=== PATIENT | female | born 1950 | race Caucasian/White ===

== ENCOUNTER 2019-05-10 15:25 | Outpatient (CLI) | payer OTHER, MEDICARE, SELFPAY ==
[2019-05-10 20:11] LABS: Anion Gap 20.6 (5-19); Blood Urea Nitrogen 21 mg/dL (8-23); Calcium 10.1 mg/Dl (8.8-10.2); Carbon Dioxide 23 mmol/L (22-29); Chloride 103 mmol/L (98-107); Glomerular Filtration Rate 44.9 mL/min (90-130); Glucose 110 mg/dL (74-106); Potassium 3.6 mmol/L (3.5-5.1); Sodium 143 mmol/L (136-145)
== END 2019-05-10 15:26 | disposition home or self-care (01) ==
LOC: LAB 15:36
PROVIDERS: Family Provider Nurse Practitioner Family; PCP Nurse Practitioner Family; Visit Provider Nurse Practitioner Family
DX: N18.9 Chronic kidney disease, unspecified (principal)
CPT/HCPCS: 36415; 80048

== ENCOUNTER 2019-05-14 08:54 | Outpatient (CLI) | payer OTHER, MEDICARE, SELFPAY ==
--- NOTE | 2019-05-14 09:48 | CT_ITS ---
WS: [id number] CT CHEST TECHNIQUE: Contrast enhanced CT of the chest with coronal and sagittal reformatted images. CLINICAL INFORMATION: LUNG NODULE COMPARISON: 4 26,018 DLP: 769.[address] scans at [facility] use at least one of these dose optimization techniques: automat ed exposure control; mA and/or kV adjustment per patient size (includes targeted exams where dose is matched to clinical indication); or iterative reconstruction. FINDINGS: Previous described right upper lobe and right middle lobe infiltrates have resolved compared to previ ous. No suspicious pulmonary parenchymal opacities today. Cardiomegaly. Sternotomy. Prior CABG. Vascu lar calcification including coronary. Small esophageal hiatal hernia. No mediastinal or hilar lymphadenopathy today. No axillary lymphadenopathy. Portal vein and splenic v ein are normal. Diffuse fatty infiltration of the liver. Adrenal glands are normal. Right renal corti karuna atrophy. Upper abdominal aortic calcification. Right proximal renal artery stent. Mild thoracic c urve. Hypertrophic changes thoracic spine. CT/CT chest w con* [id number] IMPRESSION: 1. Previously described patchy infiltrates in the right upper lobe and right m iddle lobe have resolved. No suspicious pulmonary parenchymal opacities today. 2. No mediastinal or hilar lymphadenopathy. 3. Prior sternotomy with CABG. Vascular calcification including coronary. 4. Small esophageal hiatal hernia. 5. Right renal cortical atrophy. 6. Stable cardiomegaly.
[2019-05-14] MEDS: iodixanol 320 mg/mL 100mL Btl IV (10:25)
== END 2019-05-14 08:55 | disposition home or self-care (01) ==
LOC: RAD 09:01
PROVIDERS: Family Provider Nurse Practitioner Family; PCP Nurse Practitioner Family; Visit Provider Family Medicine
DX: R91.1 Solitary pulmonary nodule (principal); I51.7 Cardiomegaly; N26.1 Atrophy of kidney (terminal); K44.9 Diaphragmatic hernia without obstruction or gangrene; Z95.1 Presence of aortocoronary bypass graft; I25.10 Atherosclerotic heart disease of native coronary artery without angina pectoris
CPT/HCPCS: 71260

== ENCOUNTER → 2019-11-06 10:37 | Outpatient (BNVA) | payer BC, MEDICARE, SELFPAY | PROVIDERS: Family Provider Nurse Practitioner Family; PCP Nurse Practitioner Family; Visit Provider Internal Medicine Nephrology | DX: N18.9 Chronic kidney disease, unspecified (principal) | CPT/HCPCS: 80053; 80069; 82570; 84156 ==

== ENCOUNTER 2019-11-13 11:01 | Outpatient (CLI) | payer BC, MEDICARE, SELFPAY ==
--- NOTE | 2019-11-13 11:12 | US_ITS ---
WS: [id number] RENAL ULTRASOUND HISTORY: CHRONIC KIDNEY DZ STAGE 3 COMPARISON: 11/04/2009 TECHNIQUE: 2-D and color Doppler imaging of the kidney submitted. Right kidney: 7.5 cm x 4.2 cm x 5.6 cm. Moderate atrophy with diffuse cortical thinning RIGHT kidney, progression of atrophy since the prior study of 11/04/2009. No obstruction or solid mass. 1 cm cyst from the superior cortex. Left kidney: 12.6 cm x 5.7 cm x 6.6 cm. Normal size LEFT kidney without cortical thinning or atrophy. No solid mass. Aorta: Normal. Urinary Bladder: Minimally distended urinary bladder with wall thickening. Wall thickening is probabl y due to underdistention. US/US renal BI* [id number] IMPRESSION: 1. Mild progression of RIGHT renal atrophy since 2009. 2. Negative LEFT kidney, normal size. 3. Mild diffuse bladder wall thickening is probably due to underdistention.
== END 2019-11-13 11:02 | disposition home or self-care (01) ==
LOC: RAD 11:07
PROVIDERS: Family Provider Nurse Practitioner Family; PCP Nurse Practitioner Family; Visit Provider Internal Medicine Nephrology
DX: N18.3 Chronic kidney disease, stage 3 (moderate) (principal)
CPT/HCPCS: 76770

== ENCOUNTER → 2019-11-21 11:33 | Outpatient (BNVA) | payer BC, MEDICARE, SELFPAY | PROVIDERS: Family Provider Nurse Practitioner Family; PCP Nurse Practitioner Family; Visit Provider Nurse Practitioner Family | DX: M25.541 Pain in joints of right hand (principal); M10.9 Gout, unspecified | CPT/HCPCS: 82550; 84460; 84550 ==

== ENCOUNTER → 2020-02-21 16:19 | Outpatient (BNVA) | payer BC, MEDICARE, SELFPAY | PROVIDERS: Family Provider Nurse Practitioner Family; PCP Nurse Practitioner Family; Visit Provider Nurse Practitioner Family | DX: R10.9 Unspecified abdominal pain (principal); I10 Essential (primary) hypertension; Z79.899 Other long term (current) drug therapy; M10.9 Gout, unspecified | CPT/HCPCS: 81000 ==

== ENCOUNTER 2020-02-22 11:28 | Outpatient (CLI) | payer BC, MEDICARE, SELFPAY ==
[2020-02-22 12:12] LABS: Basophils # 0.1 10^3/uL (0.0-0.1); Basophils % 0.6 %; Eosinophils # 0.1 10^3/uL (0.0-0.8); Hematocrit 33.6 % (37.0-47.0); Hemoglobin 9.6 g/dL (11.5-15.3); Lymphocytes % 12.3 %; Mean Corpuscular HGB Conc 28.6 g/dL (30.0-36.0); Mean Corpuscular Hemoglobin 24.7 pg (28.0-34.0); Mean Corpuscular Volume 86.4 fL (81-99); Mean Platelet Volume 9.5 fL (7.4-10.4); Monocytes # 0.6 10^3/uL (0.2-0.9); Monocytes % 7.8 %; Neutrophils % 77.9 %; Nucleated Red Blood Cells % 0 %; Platelet Count 286 10^3/cmm (130-400); Red Blood Count 3.89 10^6/uL (4.1-5.3); Red Cell Distribution Width 17.5 % (12.1-15.1); White Blood Count 8.2 10^3/uL (4.0-10.0)
[2020-02-22 12:44] LABS: Blood Urea Nitrogen 14 mg/dL (8-23); Glomerular Filtration Rate 62.5 mL/min (90-130); Uric Acid 9.9 mg/dL (2.4-5.7)
[2020-02-22] MEDS: iohexol 300 mg/mL 50 mL Btl PO (12:45)
--- NOTE | 2020-02-22 14:00 | CT_ITS ---
WS: [id number] CT scan of the abdomen and pelvis with Oral and IV contrast. Additional two-dimensional coronal and s agittal reconstruction was performed. 02/22/2020 Clinical Data: abd pain Comparison: CT abdomen and pelvis, 06/03/2014. DLP: 1136.[address] scans at [facility] use at least one of these dose optimization techniques: automat ed exposure control; mA and/or kV adjustment per patient size (includes targeted exams where dose is matched to clinical indication); or iterative reconstruction. Findings: The lower lungs show no nodules, masses or effusions. Pacemaker wires are in the apex of the heart. The liver, gallbladder, spleen, adrenal glands and pancreas are normal. The right kidney is atrophic with small cortical cysts. There is hypertrophy of left kidney with intr arenal and cortical cysts. No masses, hydronephrosis or renal calculi are seen. The abdominal aorta is normal in size with calcification in the wall, and the calcification extends i nto the common iliac arteries and arteries distal to them.. No appendicitis or diverticulitis is seen. There are sigmoid diverticula. Oral contrast is in the sto mach, small bowel and colon, and there is no bowel dilatation. No abscess, adenopathy, ascites, mass, obstruction or free air is seen. There is a small fat-containing umbilical hernia. The bladder is un remarkable. The uterus is absent or fat-containing inguinal hernias.. The lumbar vertebral bodies show degenerative change with multilevel degenerative disc disease. CT/CT abdomen pelvis w con* [id number] Impression: 1. Right renal atrophy. 2. Extensive atherosclerotic calcification of the abdominal aorta and its dista l branches. 3. Hysterectomy. 4. Negative for acute intra-abdominal or pelvic abnormalities.
[2020-02-22] MEDS: iohexol 300 mg/mL 100 mL Btl IV (14:19)
== END 2020-02-22 11:29 | disposition home or self-care (01) ==
LOC: RADWPI 11:35
PROVIDERS: PCP Nurse Practitioner Family; Visit Provider Nurse Practitioner Family
DX: R10.9 Unspecified abdominal pain (principal); Z79.899 Other long term (current) drug therapy; M10.9 Gout, unspecified; N26.1 Atrophy of kidney (terminal); I70.0 Atherosclerosis of aorta; Z90.710 Acquired absence of both cervix and uterus
CPT/HCPCS: 36415; 74177; 82565; 84520; 84550; 85025; Q9967

== ENCOUNTER 2020-02-26 13:43 | Outpatient (CLI) | payer BC, MEDICARE, SELFPAY ==
[2020-02-26 14:51] LABS: Ferritin 37 ng/mL (15-150); Iron 33 ug/dL (37-145); Total Iron Binding Capacity 412 mcg/dl; Unsaturated Iron Binding 379 ug/dL (112-347)
[2020-02-26 15:07] LABS: Vitamin B12 1429 pg/mL (232-1245)
== END 2020-02-26 13:44 | disposition home or self-care (01) ==
LOC: LAB 13:48
PROVIDERS: PCP Nurse Practitioner Family; Visit Provider Nurse Practitioner Family
DX: D64.9 Anemia, unspecified (principal)
CPT/HCPCS: 82607; 82728; 83540; 83550

== ENCOUNTER 2020-03-18 08:46 | Outpatient (CLI) | payer BC, MEDICARE, SELFPAY ==
--- NOTE | 2020-03-18 08:45 | USCV_ITS ---
Essie Alejandre Age: 69 Gender: F : 1950 Exam Date: 03/18/2020 09:02 Ordering Phys: Maya Marin Technologist: Garry Coles [place] [facility] [place]: htn Aortic Velocity @ SMA (cm/s) RIGHT KIDNEY LEFT KIDNEY Velocity (cm/s) Velocity (cm/s) Sys/Mckay Sys/Mckay Resistive Index Resistive Index 47.1 / 15.7 0.67 Proximal Renal Artery 50.5 / 11.2 0.78 54.5 / 15.7 0.71 Mid Renal Artery 63.3 / 16.3 0.74 66.1 / 15.7 0.76 Distal Renal Artery 57.8 / 11.2 0.81 49.9 / 18.4 0.63 Hilar 57.1 / 21.3 0.63 29.2 / 13.8 0.52 Upper Pole 21.4 / 9.2 0.57 13.8 / 0.0 1.00 Mid Pole 20.4 / 8.7 0.57 11.2 / 0.3 0.97 Lower Pole 22.6 / 11.1 0.51 0.66 Renal Aortic Ratio 0.57 Accleration Index (cm/sec2) 522.00 Hilar 502.00 955.00 Upper Pole 639.00 284.00 Mid Pole 430.00 594.00 Lower Pole 426.00 77.2 Kidney Length (mm) 114.7 CONCLUSIONS Normal color flow Doppler, peak systolic velocities, Renal/Aortic peak systolic velocity ratio and resistive indices noted in bilateral main, segmental and interlobar renal arteries. Bandar Mack MD (Electronically Signed) Final Date: 18 March 2020 11:48 S
== END 2020-03-18 08:47 | disposition home or self-care (01) ==
LOC: US 08:48
PROVIDERS: PCP Nurse Practitioner Family; Visit Provider Nurse Practitioner Family
DX: I10 Essential (primary) hypertension (principal)
CPT/HCPCS: 93975

== ENCOUNTER 2020-04-14 11:41 | Outpatient (CLI) | payer BC, MEDICARE, SELFPAY ==
[2020-04-14 13:18] LABS: Basophils # 0.1 10^3/uL (0.0-0.1); Basophils % 0.9 %; Eosinophils # 0.2 10^3/uL (0.0-0.8); Eosinophils % 2.3 %; Hemoglobin 12.1 g/dL (11.5-15.3); Lymphocytes # 1.7 10^3/uL (0.8-4.8); Lymphocytes % 21.6 %; Mean Corpuscular HGB Conc 30.3 g/dL (30.0-36.0); Mean Corpuscular Volume 89.3 fL (81-99); Mean Platelet Volume 9.7 fL (7.4-10.4); Monocytes # 0.5 10^3/uL (0.2-0.9); Monocytes % 6.3 %; Neutrophils # 5.43 10^3/uL (1.8-7.7); Neutrophils % 68.5 %; Nucleated Red Blood Cells % 0 %; Platelet Count 311 10^3/cmm (130-400); Red Blood Count 4.48 10^6/uL (4.1-5.3); Red Cell Distribution Width 18.1 % (12.1-15.1); White Blood Count 7.9 10^3/uL (4.0-10.0)
[2020-04-14 13:46] LABS: Albumin Level 4.3 g/dL (3.5-5.2); Blood Urea Nitrogen 23 mg/dL (8-23); Calcium 10.2 mg/dL (8.5-10.5); Carbon Dioxide 27 mmol/L (22-29); Chloride 100 mmol/L (98-107); Glomerular Filtration Rate 55.3 mL/min (90-130); Glucose 98 mg/dL (65-115); Phosphorus 3.4 mg/dL (2.5-4.5); Sodium 139 mmol/L (136-145)
[2020-04-14 17:17] LABS: Creatinine Urine, Random 52 mg/dL (28-217); Microalbumin Random Urine 4 ug/dL (0-20)
[2020-04-14 17:18] LABS: Microalbum Creatinine Ratio Ur 77 mg/dL (0-20)
[2020-04-14 18:39] LABS: Parathyroid Hormone 62.1 pg/mL (15-65)
== END 2020-04-14 11:42 | disposition home or self-care (01) ==
PROVIDERS: PCP Nurse Practitioner Family; Visit Provider Internal Medicine Nephrology
DX: N18.30 Chronic kidney disease, stage 3 unspecified (principal)
CPT/HCPCS: 36415; 80069; 82044; 82310; 83970; 85025

== ENCOUNTER 2020-06-20 14:28 | Outpatient (CLI) | payer BC, MEDICARE, SELFPAY ==
[2020-06-20 16:07] LABS: Alanine Aminotransferase 14 U/L (0-33); Alkaline Phosphatase 147 IU/L (35-105); Anion Gap 16.4 (5-19); Aspartate Amino Transferase 26 U/L (0-32); Blood Urea Nitrogen 23 mg/dL (8-23); Calcium 9.2 mg/dL (8.5-10.5); Carbon Dioxide 27 mmol/L (22-29); Chloride 100 mmol/L (98-107); Chol HDL Ratio 4.15 mg/dL (0.0-4.40); Cholesterol 257 mg/dL (0-200); Globulin 3.7 g/dL (1.3-4.6); Glomerular Filtration Rate 55.3 mL/min (90-130); Glucose 119 mg/dL (65-115); HDL Cholesterol 62 mg/dL (60-100); LDL Cholesterol Calculated 166 mg/dL (50-129); LDL HDL Ratio 2.68 RATIO (0.00-3.22); Osmolality Calculated 295 mOsm/kg (285-295); Potassium 3.4 mmol/L (3.5-5.1); Sodium 140 mmol/L (136-145); Total Bilirubin 0.3 mg/dL (0.15-1.2); Total Protein 7.7 g/dL (6.6-8.7); Triglycerides 146 mg/dL (0-150)
[2020-06-20 16:25] LABS: Hematocrit 41.2 % (37.0-47.0); Hemoglobin 13.2 g/dL (11.5-15.3); Mean Corpuscular Hemoglobin 30.1 pg (28.0-34.0); Mean Corpuscular Volume 93.8 fL (81-99); Mean Platelet Volume 9.8 fL (7.4-10.4); Platelet Count 298 10^3/cmm (130-400); Red Blood Count 4.39 10^6/uL (4.1-5.3); White Blood Count 8.6 10^3/uL (4.0-10.0)
[2020-06-20 17:54] LABS: Absolute Segmented Neutrophil 5.6 10/cmm (1.6-7.1); Lymphocytes 26 %; Monocytes Absolute 0.8 10^3/cmm (0.1-0.6); Segmented Neutrophils 65 %; Total Cells Counted 100 (0-100)
[2020-06-20 17:55] LABS: Absolute Neutrophil 5.6 10^3/cmm (1.4-6.5); Eosinophils 0 %; Platelet Estimate Normal (Normal)
[2020-06-20 20:30] LABS: Iron 89 ug/dL (37-145)
== END 2020-06-20 14:29 | disposition home or self-care (01) ==
PROVIDERS: PCP Nurse Practitioner Family; Visit Provider Nurse Practitioner Family
DX: Z51.81 Encounter for therapeutic drug level monitoring (principal); E78.5 Hyperlipidemia, unspecified; E61.1 Iron deficiency
CPT/HCPCS: 36415; 80053; 80061; 83540; 85007; 85027

== ENCOUNTER 2020-07-09 10:37 | Outpatient (CLI) | payer BC, MEDICARE, SELFPAY ==
[2020-07-09 11:54] LABS: C Reactive Protein 13.6 mg/L (0.0-4.9); Uric Acid 11.2 mg/dL (2.4-5.7)
[2020-07-10 15:13] LABS: Anti-Nuclear Antibody Screen NEGATIVE (NEGATIVE)
== END 2020-07-09 10:38 | disposition home or self-care (01) ==
PROVIDERS: PCP Nurse Practitioner Family; Visit Provider Nurse Practitioner Family
DX: M25.50 Pain in unspecified joint (principal); M10.9 Gout, unspecified
CPT/HCPCS: 36415; 84550; 86038; 86140; 86431

== ENCOUNTER 2020-07-15 10:43 | Outpatient (CLI) | payer BC, MEDICARE, SELFPAY ==
[2020-07-15 11:37] LABS: C Reactive Protein 18.8 mg/L (0.0-4.9); Uric Acid 11.3 mg/dL (2.4-5.7)
== END 2020-07-15 10:44 | disposition home or self-care (01) ==
PROVIDERS: PCP Nurse Practitioner Family; Visit Provider Nurse Practitioner Family
DX: M10.9 Gout, unspecified (principal); R79.82 Elevated C-reactive protein (CRP)
CPT/HCPCS: 84550; 86140

== ENCOUNTER → 2020-07-24 11:26 | Outpatient (BNVA) | payer BC, MEDICARE, SELFPAY | PROVIDERS: PCP Nurse Practitioner Family; Visit Provider Nurse Practitioner Family | DX: M10.9 Gout, unspecified (principal); M25.50 Pain in unspecified joint | CPT/HCPCS: 84550; 86140 ==

== ENCOUNTER → 2020-08-13 13:59 | Outpatient (BNVA) | payer BC, MEDICARE, SELFPAY | PROVIDERS: PCP Nurse Practitioner Family; Visit Provider Internal Medicine Rheumatology | DX: M1A.9XX1 Chronic gout, unspecified, with tophus (tophi) (principal); Z79.899 Other long term (current) drug therapy; N18.30 Chronic kidney disease, stage 3 unspecified | CPT/HCPCS: 99204 ==

== ENCOUNTER 2020-09-17 15:10 | Outpatient (CLI) | payer BC, MEDICARE, SELFPAY ==
--- NOTE | 2020-09-17 15:17 | XR_ITS ---
WS: [id number] Right foot, 3 views, 09/17/2020 Clinical Data: M10.9 - Gout, unspecified Comparison: Right foot, 09/04/2017. Findings: No fractures or dislocations are seen. There is minimal calcification adjacent to the head of the rig ht first metatarsal. There is cystic change at the distal right first metatarsal. There are cystic ch anges at the bases of the second through fifth metatarsals and also at the base of the right second p roximal phalanx.There is a plantar spur and an Achilles spur. XR/XR foot RT min 3V* [id number] Impression: 1. Erosive changes of the head of the right first metatarsal, base of the righ t second proximal phalanx and bases of the second through fifth metatarsals. 2. Faint calcification at head of right first metatarsal consistent with gout.
--- NOTE | 2020-09-17 15:17 | XR_ITS ---
WS: [id number] Left foot, 3 views, 09/17/2020 Clinical Data: M10.9 - Gout, unspecified Comparison: Left foot, 09/20/2016. Findings: No fractures or dislocations are seen. There is a small bunion at the head of the left first metatars al There are soft tissue calcifications adjacent to the head of the left first metatarsal which have increased. There is cystic change at the bases of the second through fifth metatarsals. There is an e rosion of the medial aspect of the distal left first metatarsal.There is a plantar spur and Achilles spur. There are soft tissue clips in the medial distal leg. XR/XR foot LT min 3V* [id number] Impression: 1. Soft tissue calcifications adjacent to the head of the left first metatarsal consistent with gout. 2. Cystic change at the bases of second through fifth metatarsals.
--- NOTE | 2020-09-17 15:17 | XR_ITS ---
WS: [id number] Cervical spine, 3 views, 09/17/2020 Clinical Data: M10.9 - Gout, unspecified Comparison: Cervical spine, 08/20/2016. Findings: No compression fractures are seen. There is disc space narrowing at C5-C6 and C6-C7. Minima l anterior osteophytes are seen at C5-C6 and C6-C7. There is loss of the normal lordotic curvature. T here is no prevertebral soft tissue swelling. The odontoid is unremarkable. The soft tissues of the n mari and the lung apices are normal. Midline sternotomy sutures and pacemaker wires are noted. XR/XR cervical spine 3V* [id number] Impression: 1. Minimal narrowing of the C5-C6 and C6-C7 disc interspaces. 2. Mild osteoarthritis at C5-C6 and C6-C7 unchanged.
--- NOTE | 2020-09-17 15:17 | XR_ITS ---
WS: [id number] Right hand, 3 views, 09/17/2020 Clinical Data: M10.9 - Gout, unspecified Comparison: None. Findings: No fractures or dislocations are seen. There is an erosion of the radial side of the dist al aspect of the right third proximal phalanx along with soft tissue swelling about the right third P IP joint.There is calcification in the triradiate cartilage. XR/XR hand RT min 3V* [id number] Impression: Soft tissue swelling around right third PIP joint along with small erosion on t he radial distal third proximal phalanx.
--- NOTE | 2020-09-17 15:17 | XR_ITS ---
WS: [id number] Left hand, 3 views, 09/17/2020 Clinical Data: M10.9 - Gout, unspecified Comparison: None. Findings: No fractures or dislocations are seen. The soft tissues are unremarkable. There are cystic changes at the base of the left first metacarpal and the proximal row of carpal bones.There is a soft tissue ca lcification on the radial side of the distal left third proximal phalanx. XR/XR hand LT min 3V* [id number] Impression: 1. Cystic change in the proximal row of carpal bones and base of the left first metacarpal. 2. Faint soft tissue calcification on the radial side of the distal left third proximal phalanx.
[2020-09-17 16:49] LABS: Basophils % 0.4 %; Eosinophils % 0.1 %; Hemoglobin 12.3 g/dL (11.5-15.3); Lymphocytes # 1.1 10^3/uL (0.8-4.8); Lymphocytes % 11.4 %; Mean Corpuscular HGB Conc 32.4 g/dL (30.0-36.0); Mean Corpuscular Hemoglobin 32.1 pg (28.0-34.0); Mean Corpuscular Volume 99.2 fL (81-99); Mean Platelet Volume 9.3 fL (7.4-10.4); Monocytes # 0.6 10^3/uL (0.2-0.9); Monocytes % 6.2 %; Neutrophils % 81.4 %; Nucleated Red Blood Cells % 0 %; Platelet Count 221 10^3/cmm (130-400); Red Blood Count 3.83 10^6/uL (4.1-5.3); Red Cell Distribution Width 14.7 % (12.1-15.1); White Blood Count 9.7 10^3/uL (4.0-10.0)
[2020-09-17 17:27] LABS: Alanine Aminotransferase 19 U/L (0-33); Albumin Level 4.1 g/dL (3.5-5.2); Alkaline Phosphatase 121 IU/L (35-105); Aspartate Amino Transferase 35 U/L (0-32); C Reactive Protein 23.2 mg/L (0.0-4.9); Globulin 3.6 g/dL (1.3-4.6); Glomerular Filtration Rate 55.1 mL/min (90-130); Total Bilirubin 0.4 mg/dL (0.15-1.2); Total Protein 7.7 g/dL (6.6-8.7); Uric Acid 6.8 mg/dL (2.4-5.7)
[2020-09-19 13:27] LABS: Cyclic Citrullinated Peptide <16 UNITS
== END 2020-09-17 15:11 | disposition home or self-care (01) ==
PROVIDERS: PCP Nurse Practitioner Family; Visit Provider Internal Medicine Rheumatology
DX: M1A.3790 Chronic gout due to renal impairment, unspecified ankle and foot, without tophus (tophi) (principal); M19.90 Unspecified osteoarthritis, unspecified site; Z79.899 Other long term (current) drug therapy
CPT/HCPCS: 36415; 72040; 73130; 73630; 80076; 82565; 84132; 84550; 85025; 86140

== ENCOUNTER → 2020-09-25 14:55 | Outpatient (BNVA) | payer BC, MEDICARE, SELFPAY | PROVIDERS: PCP Nurse Practitioner Family; Visit Provider Internal Medicine Rheumatology | DX: M1A.9XX1 Chronic gout, unspecified, with tophus (tophi) (principal); Z79.899 Other long term (current) drug therapy; N18.30 Chronic kidney disease, stage 3 unspecified | CPT/HCPCS: 99214 ==

== ENCOUNTER 2020-10-02 11:15 | Outpatient (CLI) | payer BC, MEDICARE, SELFPAY ==
[2020-10-02 11:47] LABS: Basophils # 0.1 10^3/uL (0.0-0.1); Basophils % 0.9 %; Eosinophils # 0.1 10^3/uL (0.0-0.8); Eosinophils % 1.5 %; Hematocrit 42.9 % (37.0-47.0); Lymphocytes # 1.4 10^3/uL (0.8-4.8); Lymphocytes % 15.1 %; Mean Corpuscular HGB Conc 32.6 g/dL (30.0-36.0); Mean Corpuscular Hemoglobin 32.6 pg (28.0-34.0); Mean Corpuscular Volume 99.8 fL (81-99); Mean Platelet Volume 9.5 fL (7.4-10.4); Monocytes # 0.6 10^3/uL (0.2-0.9); Monocytes % 6.3 %; Neutrophils # 6.99 10^3/uL (1.8-7.7); Neutrophils % 75.7 %; Nucleated Red Blood Cells % 0 %; Platelet Count 280 10^3/cmm (130-400); Red Cell Distribution Width 14.4 % (12.1-15.1); White Blood Count 9.2 10^3/uL (4.0-10.0)
[2020-10-02 12:04] LABS: Alanine Aminotransferase 13 U/L (0-33); Albumin Level 4.2 g/dL (3.5-5.2); Alkaline Phosphatase 119 IU/L (35-105); Aspartate Amino Transferase 22 U/L (0-32); C Reactive Protein 2.8 mg/L (0.0-4.9); Globulin 3.3 g/dL (1.3-4.6); Glomerular Filtration Rate 37.4 mL/min (90-130); Total Bilirubin 0.5 mg/dL (0.15-1.2); Total Protein 7.5 g/dL (6.6-8.7); Uric Acid 7.5 mg/dL (2.4-5.7)
== END 2020-10-02 11:16 | disposition home or self-care (01) ==
PROVIDERS: PCP Nurse Practitioner Family; Visit Provider Internal Medicine Rheumatology
DX: M1A.3790 Chronic gout due to renal impairment, unspecified ankle and foot, without tophus (tophi) (principal); Z79.899 Other long term (current) drug therapy
CPT/HCPCS: 36415; 80076; 82565; 84550; 85025; 86140

== ENCOUNTER → 2020-12-24 13:39 | Outpatient (BNVA) | payer BC, MEDICARE, SELFPAY | PROVIDERS: PCP Nurse Practitioner Family; Visit Provider Nurse Practitioner Family | DX: R39.9 Unspecified symptoms and signs involving the genitourinary system (principal); N39.0 Urinary tract infection, site not specified; K21.9 Gastro-esophageal reflux disease without esophagitis; I65.09 Occlusion and stenosis of unspecified vertebral artery; M54.5 Low back pain; K46.9 Unspecified abdominal hernia without obstruction or gangrene; K44.9 Diaphragmatic hernia without obstruction or gangrene | CPT/HCPCS: 81000; 87077; 87086; 87184 ==

== ENCOUNTER → 2020-12-31 09:32 | Outpatient (BNVA) | payer BC, MEDICARE, SELFPAY | PROVIDERS: PCP Nurse Practitioner Family; Referring Provider Nurse Practitioner Family; Visit Provider Nurse Practitioner | DX: I65.09 Occlusion and stenosis of unspecified vertebral artery (principal); Z86.73 Personal history of transient ischemic attack (TIA), and cerebral infarction without residual deficits; N18.30 Chronic kidney disease, stage 3 unspecified | CPT/HCPCS: 99204; 99214 ==

== ENCOUNTER → 2021-01-20 10:14 | Outpatient (BNVA) | payer BC, MEDICARE, SELFPAY | PROVIDERS: PCP Nurse Practitioner Family; Visit Provider Internal Medicine Rheumatology | DX: N18.30 Chronic kidney disease, stage 3 unspecified (principal); M1A.30X1 Chronic gout due to renal impairment, unspecified site, with tophus (tophi); Z79.899 Other long term (current) drug therapy; Z79.01 Long term (current) use of anticoagulants; Z87.891 Personal history of nicotine dependence | CPT/HCPCS: 99214 ==

== ENCOUNTER 2021-01-20 11:36 | Outpatient (CLI) | payer BC, MEDICARE, SELFPAY ==
[2021-01-20 12:08] LABS: Basophils # 0.1 10^3/uL (0.0-0.1); Basophils % 0.6 %; Eosinophils # 0.1 10^3/uL (0.0-0.8); Eosinophils % 1.4 %; Hematocrit 41.3 % (37.0-47.0); Hemoglobin 13.5 g/dL (11.5-15.3); Lymphocytes % 12.1 %; Mean Corpuscular HGB Conc 32.7 g/dL (30.0-36.0); Mean Corpuscular Hemoglobin 33.8 pg (28.0-34.0); Mean Corpuscular Volume 103.3 fl (81-99); Mean Platelet Volume 9.4 fL (7.4-10.4); Monocytes # 0.4 10^3/uL (0.2-0.9); Monocytes % 5.4 %; Neutrophils # 6.27 10^3/uL (1.8-7.7); Neutrophils % 80.1 %; Nucleated Red Blood Cells % 0 %; Platelet Count 221 10^3/cmm (130-400); White Blood Count 7.8 10^3/uL (4.0-10.0)
[2021-01-20 12:42] LABS: Alanine Aminotransferase 14 U/L (0-33); Albumin Level 4.2 g/dL (3.5-5.2); Alkaline Phosphatase 107 IU/L (35-105); Aspartate Amino Transferase 25 U/L (0-32); C Reactive Protein 20.8 mg/L (0.0-4.9); Globulin 3.4 g/dL (1.3-4.6); Glomerular Filtration Rate 44.7 mL/min (90-130); Total Bilirubin 0.7 mg/dL (0.15-1.2); Total Protein 7.6 g/dL (6.6-8.7); Uric Acid 5.2 mg/dL (2.4-5.7)
== END 2021-01-20 11:37 | disposition home or self-care (01) ==
LOC: LAB 11:45
PROVIDERS: PCP Nurse Practitioner Family; Visit Provider Internal Medicine Rheumatology
DX: M1A.3790 Chronic gout due to renal impairment, unspecified ankle and foot, without tophus (tophi) (principal); M1A.9XX1 Chronic gout, unspecified, with tophus (tophi); Z79.899 Other long term (current) drug therapy
CPT/HCPCS: 80076; 82565; 84550; 85025; 86140

== ENCOUNTER → 2021-01-26 16:25 | Outpatient (BNVA) | payer BC, MEDICARE, SELFPAY | PROVIDERS: PCP Nurse Practitioner Family; Visit Provider Internal Medicine | DX: K21.9 Gastro-esophageal reflux disease without esophagitis (principal); Z01.812 Encounter for preprocedural laboratory examination | CPT/HCPCS: 87635 ==

== ENCOUNTER 2021-01-30 08:40 | Day surgery (SDC) | payer BC, MEDICARE, SELFPAY ==
[2021-01-26 12:58] VITALS: BMI 32.5
--- NOTE | 2021-01-30 09:14 | P.HP_ITS ---
Same Day Surgery H&P Indication for Procedure/HPI DATE OF PROCEDURE: January 30, 2021 CHIEF COMPLAINT/INDICATIONFOR SURGICAL PROCEDURE: Intractable reflux PREOP DIAGNOSIS: Intractable refill PLANNED PROCEDRUE: Operation Date: 01/30/21 10:00 Proposed Procedures p EGD 15436 K21.9(Not Applicable) - Norberto Wolff MD Medications/Allergies* Home Medications Medication Instructions Recorded Confirmed Type omega-3 fatty acids 1,000 mg 1,000 mg PO DAILY 06/29/19 01/26/21 History capsule acetaminophen 650 mg 650 mg PO Q12H 08/13/20 01/26/21 History tablet,extended release antiarthritic combination no.2 900 1 mg PO DAILY tab 08/13/20 01/26/21 History mg tablet calcium carbonate 600 mg (1,500 1 tab PO DAILY 08/13/20 01/26/21 History mg)-vitamin D3 200 unit tablet cholecalciferol (vitamin D3) 125 125 mcg PO DAILY 08/13/20 01/26/21 History mcg (5,000 unit) capsule Allergies/Adverse Reactions Allergy/AdvReac Type Severity Reaction Status Date / Time Sulfa (Sulfonamide Allergy hives Verified 01/20/21 10:48 Antibiotics) Pertinent History/Comorbid Conditions* Medical History (Updated 01/15/21 @ 11:07 by Norberto Wolff MD) Anemia Anticoagulant long-term use Atrial fibrillation Cardiomyopathy CHF (congestive heart failure) Chronic renal insufficiency, stage II (mild) Chronic tophaceous gout of both hands CKD (chronic kidney disease) stage 3, GFR 30-59 ml/min GERD (gastroesophageal reflux disease) Gout High risk medication use High risk medication use HTN (hypertension) Hyperlipidemia Left bundle branch block MRSA carrier BASIA (obstructive sleep apnea) PAD (peripheral artery disease) Renal artery stenosis Right internal carotid artery aneurysm Sleep apnea Vertebral artery stenosis Vertebrobasilar insufficiency Surgical History (Updated 08/13/20 @ 15:16 by Jayro Alejandra MD) H/O cardiac radiofrequency ablation S/P angioplasty with stent S/P appendectomy S/P CABG (coronary artery bypass graft) S/P section S/P hysterectomy S/P ICD (internal cardiac 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) procedure Status post aorto-coronary artery bypass graft Status post tubal ligation Family History (Updated 06/28/19 @ 10:31 by Tori Prado RN) Rheumatoid arthritis Father Diabetes Mother Sister CAD (coronary artery disease) Father Mother Sister Hyperlipidemia Father Mother Sister Cancer Hypertension Father Mother Sister Social History Smoking and tobacco status: former smoker Second hand smoke exposure: No Current occupational status: unemployed History of recent travel: No Pertinent Exam Findings alert, oriented x 3, clear to auscultation bilaterally, regular rate & rhythm, operative site marked and procedure specific exam findings Recommendations Surgery/Procedure today Coding Level of Care Code Acute Packager And Strapper for Dario Guzman
--- NOTE | 2021-01-30 09:18 | ANES.PREANE2 ---
Pre-Anesthetic Assessment Pre-Anesthetic Assessment: Height/Weight: Height 1.63 m Weight 86.183 kg Preop Diagnosis: GERD Proposed Procedure: Operation Date: 01/30/21 10:00 Proposed Procedures p EGD 79943 K21.9(Not Applicable) - Norberto Wolff MD Was Beta Misa taken within 24 hours: Yes Was Clonidine taken within 24 hours: N/A Social: Social History: Tobacco and No alcohol Exam: Pre-Anes Outpt Exam: alert, oriented x 3 and regular rate & rhythm Airway: Submandibular: WNL Cervical ROM: WNL MP: 2 Dentition: Chipped Additional comments: Missing Pulmonary: Pulmonary: COPD and Sleep apnea CV/HEM: CV/HEM: Afib, Anemia, CAD (CABG and stents) and HTN Comments: AICD : : Chronic renal Insufficiency GI: GI: GERD Neuropsych: Neuropsych: Depression Anesthetic Plan: ASA status: 3 Anesthesia: MAC Risk of > 500 ml blood loss (7ml/kg in children): No PFSH Anesthesia PFSH: Medical History Anemia Anticoagulant long-term use Atrial fibrillation Cardiomyopathy CHF (congestive heart failure) Chronic renal insufficiency, stage II (mild) Chronic tophaceous gout of both hands CKD (chronic kidney disease) stage 3, GFR 30-59 ml/min GERD (gastroesophageal reflux disease) Gout High risk medication use High risk medication use HTN (hypertension) Hyperlipidemia Left bundle branch block MRSA carrier BASIA (obstructive sleep apnea) PAD (peripheral artery disease) Renal artery stenosis Right internal carotid artery aneurysm Sleep apnea Vertebral artery stenosis Vertebrobasilar insufficiency Surgical History H/O cardiac radiofrequency ablation S/P angioplasty with stent S/P appendectomy S/P CABG (coronary artery bypass graft) S/P section S/P hysterectomy S/P ICD (internal cardiac 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) procedure Status post aorto-coronary artery bypass graft Status post tubal ligation Family History Father Hyperlipidemia CAD (coronary artery disease) Hypertension Rheumatoid arthritis Mother Hyperlipidemia CAD (coronary artery disease) Hypertension Diabetes Sister Hyperlipidemia CAD (coronary artery disease) Hypertension Diabetes Other Cancer Social History Smoking and tobacco status: former smoker Second hand smoke exposure: No Current occupational status: unemployed History of recent travel: No Data Anesthesia Cardiac Studies: No Data to Display
[2021-01-30 09:39] VITALS: BP 125/76; PULSE 75; RESP 16; TEMP 36.2; O2SAT 96
[2021-01-30] MEDS: sodium chloride 0.9% 1,000 ML 30 ML IV (10:07)
[2021-01-30 10:25] VITALS: BP 115/71; PULSE 72; RESP 16; TEMP 36.1; O2SAT 100
--- NOTE | 2021-01-30 10:28 | PM.PACU ---
PACU note Post-Anesthesia Exam: awake and vital signs stable Disposition: discharged
[2021-01-30 10:35] VITALS: BP 130/86; PULSE 72; RESP 18; O2SAT 98
== END 2021-01-30 10:49 | disposition home or self-care (01) ==
PROVIDERS: PCP Nurse Practitioner Family; Visit Provider Internal Medicine
PROC: 0DJ08ZZ Inspection of Upper Intestinal Tract, Via Natural or Artificial Opening Endoscopic (ICD-10-PCS; CPT 43235; principal; 2021-01-30 10:00)
DX: K21.9 Gastro-esophageal reflux disease without esophagitis (principal); K44.9 Diaphragmatic hernia without obstruction or gangrene; Z79.01 Long term (current) use of anticoagulants; I48.91 Unspecified atrial fibrillation; E11.22 Type 2 diabetes mellitus with diabetic chronic kidney disease; I13.0 Hypertensive heart and chronic kidney disease with heart failure and stage 1 through stage 4 chronic kidney disease, or unspecified chronic kidney disease; N18.2 Chronic kidney disease, stage 2 (mild); I50.9 Heart failure, unspecified; E78.5 Hyperlipidemia, unspecified; Z86.14 Personal history of Methicillin resistant Staphylococcus aureus infection; G47.33 Obstructive sleep apnea (adult) (pediatric); Z95.1 Presence of aortocoronary bypass graft; Z82.49 Family history of ischemic heart disease and other diseases of the circulatory system; Z83.3 Family history of diabetes mellitus; Z87.891 Personal history of nicotine dependence; Z95.5 Presence of coronary angioplasty implant and graft
CPT/HCPCS: 43235; 96360; J2704; J7030

== ENCOUNTER 2021-02-12 11:51 | Outpatient (CLI) | payer BC, MEDICARE, SELFPAY ==
--- NOTE | 2021-02-12 12:02 | XR_ITS ---
WS: [id number] XR lumbar spine 2-3V* [id number] REASON FOR EXAM: M54.50 - Low back pain, unspecified FINDINGS: Rotatory scoliosis of the lumbar spine convex left. No significant compression deformity or other focal lumbar vertebrae abnormality. Moderate narrowing of the intervertebral disc space at L1-L2. Severe narrowing of the intervertebral disc spaces at L2-L3. Moderate narrowing of the intervertebral disc spaces L3-S1. Degenerative changes in the facet joints L4-L5 and L5-S1. The L2 vertebral body demonstrates 4 to 5 mm of anterolisthesis in relation to L1 and 4 to 5 mm of re trolisthesis in relation to L3. Vascular stents, presumably iliac and superior mesenteric artery. Examination is unchanged compared to 04/18/2019. XR/XR lumbar spine 2-3V* [id number] IMPRESSION: Multilevel lumbar degenerative spondylosis, unchanged.
== END 2021-02-12 11:52 | disposition home or self-care (01) ==
LOC: RAD 11:59
PROVIDERS: PCP Nurse Practitioner Family; Visit Provider Nurse Practitioner Family
DX: M54.50 Low back pain, unspecified (principal); M47.816 Spondylosis without myelopathy or radiculopathy, lumbar region
CPT/HCPCS: 72100

== ENCOUNTER → 2021-03-27 08:26 | Outpatient (BNVA) | payer BC, MEDICARE, SELFPAY | PROVIDERS: PCP Nurse Practitioner Family; Visit Provider Nurse Practitioner Family | DX: R10.9 Unspecified abdominal pain (principal) | CPT/HCPCS: 81000 ==

== ENCOUNTER 2021-04-13 10:03 | Emergency (ER) | payer BC, MEDICARE, SELFPAY ==
[2021-04-13] VITALS (7 sets, daily range): BP systolic 90–136; BP diastolic 55–78; PULSE 71–92; RESP 18; TEMP 36.7–37.6; O2SAT 94–96; BMI 33.5
[2021-04-13 11:23] LABS: Basophils % 0.3 %; Eosinophils # 0.2 10^3/uL (0.0-0.8); Eosinophils % 1.1 %; Hematocrit 38.7 % (37.0-47.0); Hemoglobin 12.8 g/dL (11.5-15.3); Lymphocytes # 0.4 10^3/uL (0.8-4.8); Lymphocytes % 3.1 %; Mean Corpuscular HGB Conc 33.1 g/dL (30.0-36.0); Mean Corpuscular Hemoglobin 33.3 pg (28.0-34.0); Mean Corpuscular Volume 100.8 fl (81-99); Mean Platelet Volume 9.9 fL (7.4-10.4); Monocytes # 0.8 10^3/uL (0.2-0.9); Monocytes % 5.4 %; Neutrophils # 12.34 10^3/uL (1.8-7.7); Neutrophils % 89.6 %; Nucleated Red Blood Cells % 0 %; Platelet Count 211 10^3/cmm (130-400); Red Blood Count 3.84 10^6/uL (4.1-5.3); Red Cell Distribution Width 14.6 % (12.1-15.1); White Blood Count 13.8 10^3/uL (4.0-10.0)
[2021-04-13 11:53] LABS: Alanine Aminotransferase 16 U/L (0-33); Albumin Level 3.9 g/dL (3.5-5.2); Alkaline Phosphatase 113 IU/L (35-105); Anion Gap 22.8 (5-19); Aspartate Amino Transferase 31 U/L (0-32); Blood Urea Nitrogen 26 mg/dL (8-23); Calcium 8.9 mg/dL (8.5-10.5); Carbon Dioxide 19 mmol/L (22-29); Chloride 99 mmol/L (98-107); Globulin 3.1 g/dL (1.3-4.6); Glomerular Filtration Rate 40.7 mL/min (90-130); Glucose 120 mg/dL (65-115); Lipase 16 U/L (13-60); Osmolality Calculated 290 mOsm/kg (285-295); Potassium 3.8 mmol/L (3.5-5.1); Sodium 137 mmol/L (136-145); Total Bilirubin 0.8 mg/dL (0.15-1.2)
--- NOTE | 2021-04-13 12:09 | CT_ITS ---
WS: [id number] CT ABDOMEN AND PELVIS WITH CONTRAST HISTORY: RLQ abd pain TECHNIQUE: Imaging performed of the abdomen and pelvis with IV contrast. Single phase imaging of the abdomen. Coronal and sagittal reformats are submitted. All CT scans at [facility] use at [facility] one of these dose optimization techniques: automated exposure control; mA and/or kV adjustment per patient size (includes targeted exams where dose is matched to clinical indication); or iterative re construction. IV CONTRAST: Visipaque 320; 95 mL IV. Oral contrast: No DLP: 1809.27 mGy.cm COMPARISON: 02/22/2020 Lower thorax: Lung bases are clear. Mild enlargement of the heart. Small hiatal hernia. Liver/biliary system: Normal size with no intrahepatic dilatation. Gallbladder: Normal. No gallstones or wall thickening. No pericholecystic fluid. Pancreas: Normal size pancreas and pancreatic duct. No adjacent inflammation. Spleen: Normal size spleen. No mass or infarct. Adrenal glands: Normal. Right kidney: Moderate atrophy and cortical thinning. No renal obstruction. 10 mm low-attenuation nod ule involving the superior pole similar to the prior study. No obstruction. Left kidney: Normal size kidney. Multiple small cortical hypodensities are identified. These are too small to characterize these have been present on multiple prior examinations. No obstruction or hydro nephrosis. Aorta: Marked atherosclerotic plaque throughout the aorta. Moderate plaque burden at the origin of th e celiac axis and SMA. RIGHT renal artery stent. Heavy calcification continues into the infrarenal ao rta. There is mild luminal narrowing of the distal aorta. Heavy calcification continues into the vu c arteries bilaterally. Short segment RIGHT iliac artery stent. Additional LEFT external iliac artery stent. Lymphadenopathy: None. Free fluid: None. GI tract: Stomach is nondistended. The appendix has been removed. There are a few scattered diverticu la with no acute diverticulitis. Abdominal wall: Bilateral fat-containing inguinal hernias. There is an additional bulging of the LEFT pelvic wall with no herniation of GI tract. Small umbilical hernia. Pelvis: No free fluid or adenopathy within the pelvis. Urinary bladder is not distended. Prior hyster ectomy. Bones: Degenerative LEFT curvature lumbar spine. CT/CT abdomen pelvis w con* [id number] IMPRESSION: 1. No acute abdominal or pelvic abnormalities are identified. 2. Chronic atrophy RIGHT kidney. 3. Scattered hypodensities throughout the LEFT kidney are too small to charact erize. 4. Extensive atherosclerosis throughout the abdominal aorta with extension int o the iliac arteries. Multiple prior stents of been placed. 5. Small hiatal hernia.
--- NOTE | 2021-04-13 12:35 | ED_ITS ---
HPI - General Adult General: Chief complaint: Abdominal Pain Stated complaint: N/V/D Time Seen by Provider: 04/13/21 12:08 History of Present Illness: HPI narrative: Patient is a 62-year-old female with a history of bladder support, prior with hysterectomy, appendectomy who presents to the emergency room for evaluation right lower quadrant dull pain with nausea/vomiting/diarrhea x5 days. Patient says that chronically she has right lower quadrant pain from the bladder support. However since 5 days ago patient has had persistent or lower quadrant abdominal pain. In addition was 1 day ago patient has had nausea and vomiting. Patient reports muscle aches generalized weakness. Patient thinks that she may be having UTI. Patient has symptoms of dysuria and polyuria. Patient denies any melena hematochezia, or any cough, runny nose, sore throat, fever or chills. Denies any chest pain or shortness of breath or palpitation. Onset: 5 days ago Duration:5 days Location:home Severity:moderate Review of Systems Narrative: Constitutional: No fever, no chills. HEENT: No vision changes CV: No chest pain, no palpitations PULM: no cough, no dyspnea. GI: +RLQ abdominal pain, +N/+V/+D. : No dysuria MSKEL: No muscle pain SKIN: No new rashes, no lesions. NEURO: No headache, no focal weakness. 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 CKD (chronic kidney disease) stage 3, GFR 30-59 ml/min GERD (gastroesophageal reflux disease) Gout High risk medication use High risk medication use HTN (hypertension) Hyperlipidemia Left bundle branch block MRSA carrier BASIA (obstructive sleep apnea) PAD (peripheral artery disease) Renal artery stenosis Right internal carotid artery aneurysm Sleep apnea Vertebral artery stenosis Vertebrobasilar insufficiency Surgical History H/O cardiac radiofrequency ablation S/P angioplasty with stent S/P appendectomy S/P CABG (coronary artery bypass graft) S/P section S/P hysterectomy S/P ICD (internal cardiac 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) procedure Status post aorto-coronary artery bypass graft Status post tubal ligation Family History Father Hyperlipidemia CAD (coronary artery disease) Hypertension Rheumatoid arthritis Mother Hyperlipidemia CAD (coronary artery disease) Hypertension Diabetes Sister Hyperlipidemia CAD (coronary artery disease) Hypertension Diabetes Other Cancer Social History Smoking and tobacco status: former smoker Second hand smoke exposure: No Current occupational status: unemployed History of recent travel: No Physical Exam Narrative: EXAM NARRATIVE: Head: Atraumatic Eyes: PERRL, conjunctiva without injection ENT: Mucous membrane moist NECK: Supple, ROM intact LUNGS: LCTAB, no crackles/rhonchi CV: RRR ABDOMEN: Soft, mild +RLQ. NO guarding rebound, guarding, rigidity. No CVA tend erness to percussion. Neg Jasso/Neg McBurney's point tenderness, no suprabupic tenderness to palpation. EXTREMITY: Normal ROM SKIN: No rash or erythema NEURO: Awake and alert, no focal motor deficits PSYCH: Normal mood and affect : +mild R groin tenderness to palpation, no signs of hernia Course Vital Signs: Vital signs: Vital Signs Temperature 98.1 F 04/13/21 17:19 Pulse Rate 92 04/13/21 17:19 Respiratory Rate 18 04/13/21 17:19 Blood Pressure 131/76 04/13/21 17:19 Pulse Oximetry 96 04/13/21 17:19 MDM - General Adult MDM Narrative: Medical decision making narrative: Patient is a 70-year-old female with history of prior prior reconstructive bladder surgery appendectomy and hysterectomy presenting to emergency room right lower quadrant mitali pain on exam, patient has a white count of 13.8. Creatinine 1.3. CT of pelvis did not show any signs of acute finding. UA is consistent with UTI. Patient received 1 L fluid in the emergency room. Patient received ceftriaxone. She is able to tolerate p.o. without difficulty. Given nausea/vomiting in the setting UTI, this may be possibly early pyelonphritis. Rx: Zofran, Maalox/Pepcid PRN dyspepsia, cefdinir BID for UTI Disposition: Discharge. Patient counseled regarding diagnostic impression, treatment plan. Patient given ED strict return precautions to return for continuation, worsening, or development of new symptoms. Instructed to f/u w/ PCP regarding symptoms today. Patient verbalized understanding. Given strict return precaution for any signs of fever/chills, nausea/vomiting, flank pain, or any new or concerning complaints Lab Data: Labs: Lab Results 04/13/21 04/13/21 04/13/21 11:15 11:15 12:51 WBC 13.8 10^3/uL H 10 ^3/uL (4.0-10.0) RBC 3.84 10^6/uL L 10 ^6/uL (4.1-5.3) Hgb 12.8 g/dL g/dL (11.5-15.3) Hct 38.7 % % (37.0-47.0) MCV 100.8 fl H fl (81-99) MCH 33.3 pg pg (28.0-34.0) MCHC 33.1 g/dL g/dL (30.0-36.0) RDW 14.6 % % (12.1-15.1) Plt Count 211 10^3/cmm 10^3 /cmm (130-400) MPV 9.9 fL fL (7.4-10.4) Neut % (Auto) 89.6 % % Lymph % (Auto) 3.1 % % [place] % (Auto) 5.4 % % Eos % (Auto) 1.1 % % Baso % (Auto) 0.3 % % Neut # (Auto) 12.34 10^3/uL H 1 0^3/uL (1.8-7.7) Lymph # (Auto) 0.4 10^3/uL L 10^ 3/uL (0.8-4.8) [place] # (Auto) 0.8 10^3/uL 10^3/ uL (0.2-0.9) Eos # (Auto) 0.2 10^3/uL 10^3/ uL (0.0-0.8) Baso # (Auto) 0.0 10^3/uL 10^3/ uL (0.0-0.1) Nucleated RBC % (a uto) 0 % % Nucleated RBCs # 0.0 /100WBC /100W BC Sodium 137 mmol/L mmol/L (136-145) Potassium 3.8 mmol/L mmol/L (3.5-5.1) Chloride 99 mmol/L mmol/L (98-107) Carbon Dioxide 19 mmol/L L mmol/ L (22-29) Anion Gap 22.8 H (5-19) BUN 26 mg/dL H mg/dL (8-23) Creatinine 1.3 mg/dL H mg/dL (0.5-0.9) GFR Calculation 40.7 mL/min L mL/ min (90-130) Glucose 120 mg/dL H mg/dL (65-115) Calculated Osmolal ity 290 mOsm/kg mOsm/ kg (285-295) Calcium 8.9 mg/dL mg/dL (8.5-10.5) Total Bilirubin 0.8 mg/dL mg/dL (0.15-1.2) AST 31 U/L U/L (0-32) ALT 16 U/L U/L (0-33) Alkaline Phosphata se 113 IU/L H IU/L (35-105) Total Protein 7.0 g/dL g/dL (6.6-8.7) Albumin 3.9 g/dL g/dL (3.5-5.2) Globulin 3.1 g/dL g/dL (1.3-4.6) Lipase 16 U/L U/L (13-60) Urine Color Dark yellow (Yellow) Urine Appearance Cloudy (CLEAR) Urine pH 6.5 (5-7) Ur Specific Gravit y 1.015 (1.005-1.030) Urine Protein 1+ H (Negative) Urine Glucose (UA) Norm (Normal) Urine Ketones 1+ H (Negative) Urine Blood 3+ H (Negative) Urine Nitrate Negative (Negative) Urine Bilirubin 1+ H (Negative) Urine Urobilinogen 1 mg/dL H mg/dL (Negative) Ur Leukocyte Eri ase 2+ H (Negative) Urine RBC Too numerous to c nt /hpf H /hpf (0-2) Urine WBC Too numerous to c nt /hpf H /hpf (0-5) Ur Squamous Epith Cells None /hpf /hpf (0-5) Amorphous Sediment Not Reportable Urine Bacteria 3+ /hpf H /hpf (NONE) Influenza Type A A g Influenza Type B A g SARS-CoV-2 Ag (Rap id) 04/13/21 04/13/21 12:51 12:51 WBC RBC Hgb Hct MCV MCH MCHC RDW Plt Count MPV Neut % (Auto) Lymph % (Auto) [place] % (Auto) Eos % (Auto) Baso % (Auto) Neut # (Auto) Lymph # (Auto) [place] # (Auto) Eos # (Auto) Baso # (Auto) Nucleated RBC % (a uto) Nucleated RBCs # Sodium Potassium Chloride Carbon Dioxide Anion Gap BUN Creatinine GFR Calculation Glucose Calculated Osmolal ity Calcium Total Bilirubin AST ALT Alkaline Phosphata se Total Protein Albumin Globulin Lipase Urine Color Urine Appearance Urine pH Ur Specific Gravit y Urine Protein Urine Glucose (UA) Urine Ketones Urine Blood Urine Nitrate Urine Bilirubin Urine Urobilinogen Ur Leukocyte Eri ase Urine RBC Urine WBC Ur Squamous Epith Cells Amorphous Sediment Urine Bacteria Influenza Type A A g Negative (Negative) Influenza Type B A g Negative (Negative) SARS-CoV-2 Ag (Rap id) Negative (Negative) Imaging Data^: Other Imaging: Radiologist's impression: [facility] [id number] Scan ReportSigned Patient: Essie Alejandre JUnlizandro #: [id number]: 3Acct#:[id number]/Sex: 70 / FADM Date: 04/13/21Loc: ERRoom/Bed:Attending Dr: Ordering Provider/Ordering MD: Savanna Stanford MD Date of Service: 04/13/21 Procedure(s): CT abdomen pelvis w con* [id number] Accession Number(s): [id number] Report Number: [id number] WS: [id number] CT ABDOMEN AND PELVIS WITH CONTRAST HISTORY: RLQ abd pain TECHNIQUE: Imaging performed of the abdomen and pelvis with IV contrast. Single phase imaging of the abdomen. Coronal and sagittal reformats are submitted. [facility] at least one of these dose optimization techniques: automated exposure control; mA and/or kV adjustment per patient size (includes targeted exams where dose is matched to clinical indication); or iterative reconstruction. IV CONTRAST: Visipaque 320; 95 mL IV. Oral contrast: No DLP: 1809.27 mGy.cm COMPARISON: 02/22/2020 Lower thorax: Lung bases are clear. Mild enlargement of the heart. Small hiatal hernia. Liver/biliary system: Normal size with no intrahepatic dilatation. Gallbladder: Normal. No gallstones or wall thickening. No pericholecystic fluid. Pancreas: Normal size pancreas and pancreatic duct. No adjacent inflammation. Spleen: Normal size spleen. No mass or infarct. Adrenal glands: Normal. Right kidney: Moderate atrophy and cortical thinning. No renal obstruction. 10 mm low-attenuation nodule involving the superior pole similar to the prior study. No obstruction. Left kidney: Normal size kidney. Multiple small cortical hypodensities are identified. These are too small to characterize these have been present on multiple prior examinations. No obstruction or hydronephrosis. Aorta: Marked atherosclerotic plaque throughout the aorta. Moderate plaque burden at the origin of the celiac axis and SMA. RIGHT renal artery stent. Heavy calcification continues into the infrarenal aorta. There is mild luminal narrowing of the distal aorta. Heavy calcification continues into the iliac arteries bilaterally. Short segment RIGHT iliac artery stent. Additional LEFT external iliac artery stent. Lymphadenopathy: None. Free fluid: None. GI tract: Stomach is nondistended. The appendix has been removed. There are a few scattered diverticula with no acute diverticulitis. Abdominal wall: Bilateral fat-containing inguinal hernias. There is an additional bulging of the LEFT pelvic wall with no herniation of GI tract. Small umbilical hernia. Pelvis: No free fluid or adenopathy within the pelvis. Urinary bladder is not distended. Prior hysterectomy. Bones: Degenerative LEFT curvature lumbar spine. CT/CT abdomen pelvis w con* [id number] IMPRESSION: 1. No acute abdominal or pelvic abnormalities are identified. 2. Chronic atrophy RIGHT kidney. 3. Scattered hypodensities throughout the LEFT kidney are too small to characterize. 4. Extensive atherosclerosis throughout the abdominal aorta with extension into the iliac arteries. Multiple prior stents of been placed. 5. Small hiatal hernia. Dictated By:Naina Harp DOSigned By:Naina Harp DOSigned Date/Time:04/13/21 1417DD/ 1409 Discharge Plan Discharge Patient Disposition: Home Clinical Impression: Abdominal pain, Nausea & vomiting, Diarrhea, Acute UTI, Pyelonephritis Condition: Stable Prescriptions: New Zofran 4 mg tablet 4 mg PO TID PRN (Reason: nausea and vomiting) 4 Days Qty: 12 RF: 0 acetaminophen 500 mg tablet 500 mg PO Q6H PRN (Reason: pain) 5 Days Qty: 20 RF: 0 Pepcid 20 mg tablet 20 mg PO BID PRN (Reason: abdominal pain) 10 Days Qty: 20 RF: 0 Maalox Advanced 1,000-60 mg tablet,chewable 1 tab PO TID PRN (Reason: abdominal pain) 7 Days Qty: 21 RF: 0 cefdinir 300 mg capsule 300 mg PO BID 10 Days Qty: 20 RF: 0 No Action clobetasol 0.05 % cream 1 applic topical BID Qty: 45 RF: 1 omega-3 fatty acids [Fish Oil Concentrate] 1,000 mg capsule 1,000 mg PO DAILY RF: 0 glucosamine-chondroitin 900 mg tablet 1 mg PO DAILY RF: 0 acetaminophen [Tylenol Arthritis Pain] 650 mg tablet extended release 650 mg PO Q12H RF: 0 calcium carbonate-vitamin D3 [Calcium 600 + D(3)] 600 mg(1,500mg) -200 unit tablet 1 tab PO DAILY RF: 0 cholecalciferol (vitamin D3) 125 mcg (5,000 unit) capsule 125 mcg PO DAILY RF: 0 sertraline 100 mg tablet 100 mg PO Q24H 90 Days Qty: 90 RF: 3 isosorbide mononitrate 60 mg tablet extended release 24 hr 60 mg PO DAILY RF: 0 lisinopril 20 mg tablet 20 mg PO DAILY Qty: 90 RF: 3 nitroglycerin [Nitrostat] 0.4 mg tablet, sublingual 0.4 mg SUBLINGUAL Q5M PRN (Reason: chest pain) Qty: 25 RF: 3 docusate sodium [Stool Softener] 100 mg capsule See Rx Instructions .ROUTE .COMPLEX Qty: 60 RF: 0 clopidogrel 75 mg tablet 75 mg PO DAILY Qty: 90 RF: 3 furosemide 40 mg tablet 40 mg PO BID Qty: 180 RF: 3 ferrous sulfate [Iron (ferrous sulfate)] 325 mg (65 mg iron) tablet 325 mg PO DAILY Qty: 90 RF: 1 pantoprazole 40 mg tablet,delayed release (DR/EC) 40 mg PO BID Qty: 180 RF: 3 Xarelto 15 mg tablet 15 mg PO DAILY Qty: 90 RF: 3 allopurinol 100 mg tablet 400 mg PO DAILY Qty: 120 RF: 3 colchicine 0.6 mg tablet See Rx Instructions PO .COMPLEX Qty: 15 RF: 3 prednisone 5 mg tablet 5 mg PO DAILY Qty: 90 RF: 1 potassium chloride 10 mEq capsule, extended release See Rx Instructions .ROUTE .COMPLEX Qty: 30 RF: 0 metoprolol tartrate 25 mg tablet See Rx Instructions .ROUTE .COMPLEX Qty: 60 RF: 0 Discharge Orders: Discharge ED (Routine); Ordered 04/13/21 Ordered By: Savanna Stanford Referrals: Maya Marin FNP [Primary Care Provider] - Discharge Diet: Advance as tolerated Discharge Activity: Resume usual activity Patient Instructions: Kidney Infection (ED), Acute Nausea and Vomiting (ED), Acute Diarrhea (ED), Abdominal Pain (ED) Activity Restrictions/Additional Instructions: Please come back if you have any worsening abdominal pain, fever or chills, nausea or vomiting, diarrhea, blood in the stool, inability hold down liquid or solids, or any new concerning complaints. Please take your antibiotics as instructed. Watch out for signs of skin changes/redness, mouth redeness or swelling, nausea/vomiting, diarrhea, blood in the urine or any new or concering complaints. 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
[2021-04-13] MEDS: ondansetron 2 mg/ML SDV 2 mL 4 MG IVP (12:36)
[2021-04-13] MEDS: acetaminophen 500 mg Tablet 1000 MG PO (12:36)
[2021-04-13 13:23] LABS: Add Urine Microscopic? YES; Bilirubin Urine 1+ (Negative); Blood Urine 3+ (Negative); Glucose Urine UA Norm (Normal); Ketones Urine 1+ (Negative); Leukocyte Esterase Urine 2+ (Negative); Nitrate Urine Negative (Negative); Protein Urine 1+ (Negative); Specific Gravity, Urine 1.015 (1.005-1.030); Urine Appearance Cloudy (CLEAR); Urine Color Dark Yellow (Yellow); Urobilinogen Urine 1 mg/dL (Negative); pH Urine 6.5 (5-7)
[2021-04-13 13:24] LABS: Add Urine Culture? Yes; Bacteria Urine 3+ /hpf; RBC Urine TOO NUMEROUS TO CNT /hpf (0-2); WBC Urine TOO NUMEROUS TO CNT /hpf (0-5)
[2021-04-13 13:38] LABS: Influenza A by IFA Negative (Negative); SARS Covid-2 Antigen Negative (Negative)
[2021-04-13 13:39] LABS: Influenza B by IFA Negative (Negative)
[2021-04-13] MEDS: sodium chloride 0.9% 1,000 ML 999 ML IV (14:10)
[2021-04-13] MEDS: cefTRIAXone 1,000 MG in sodium chloride 0.9% (plus) 50 ML 100 MG IV (15:02)
[2021-04-14 14:20] LABS: Coronavirus Test Green County Detected
--- NOTE | 2021-04-15 15:51 | PC.NURSE ---
Patient notified of positive COVID-19 test result
--- NOTE | 2021-04-16 11:33 | DCPLANNER ---
redevelopment manager had message to speak with patient about getting a primary care physician. redevelopment manager unable to speak with patient and unable to leave a voicemail for patient.
== END 2021-04-13 17:25 | disposition home or self-care (01) ==
PROVIDERS: Physician Assistant; Emergency Provider Emergency Medicine; PCP Nurse Practitioner Family
DX: N39.0 Urinary tract infection, site not specified (principal); N12 Tubulo-interstitial nephritis, not specified as acute or chronic; U07.1 COVID-19; Z79.02 Long term (current) use of antithrombotics/antiplatelets; I13.0 Hypertensive heart and chronic kidney disease with heart failure and stage 1 through stage 4 chronic kidney disease, or unspecified chronic kidney disease; N18.30 Chronic kidney disease, stage 3 unspecified; I50.9 Heart failure, unspecified; E78.5 Hyperlipidemia, unspecified; Z95.1 Presence of aortocoronary bypass graft; Z95.810 Presence of automatic (implantable) cardiac 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; Z87.891 Personal history of nicotine dependence
CPT/HCPCS: 74177; 80053; 81001; 83690; 85025; 87077; 87086; 87186; 87426; 87635; 87804; 96365; 96375; 99284; J0696; J2405; J7030; Q9967

== ENCOUNTER → 2021-04-28 15:43 | Outpatient (BNVA) | payer BC, MEDICARE, SELFPAY | PROVIDERS: PCP Nurse Practitioner Family; Visit Provider Nurse Practitioner Family | DX: R39.9 Unspecified symptoms and signs involving the genitourinary system (principal) | CPT/HCPCS: 81000 ==

== ENCOUNTER → 2021-05-20 10:22 | Outpatient (BNVA) | payer BC, MEDICARE, SELFPAY | PROVIDERS: PCP Nurse Practitioner Family; Visit Provider Nurse Practitioner Family | DX: N39.0 Urinary tract infection, site not specified (principal); K59.00 Constipation, unspecified | CPT/HCPCS: 81003; 87077; 87086; 87184 ==

== ENCOUNTER 2021-05-25 13:03 | Outpatient (CLI) | payer BC, MEDICARE, SELFPAY | END 2021-05-25 13:04 | disposition home or self-care (01) | PROVIDERS: PCP Nurse Practitioner Family; Visit Provider Family Medicine | DX: K52.9 Noninfective gastroenteritis and colitis, unspecified (principal) | CPT/HCPCS: 87493; 87506 ==

== ENCOUNTER 2021-06-01 11:01 | Emergency (ER) | payer BC, MEDICARE, SELFPAY ==
[2021-06-01 11:08] VITALS: BP 149/78; PULSE 85; RESP 16; TEMP 36.4; O2SAT 94; BMI 31.6
--- NOTE | 2021-06-01 11:17 | XR_ITS ---
WS: [id number] PORTABLE CHEST HISTORY: chest pain COMPARISON: 06/23/2018 Since the prior examination LEFT subclavian pacer/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 has been inserted. Patient status pos t median sternotomy. Lungs are clear and well expanded. No pleural effusion or pneumothorax. Cardiac size: Mildly enlarged cardiac silhouette. Mediastinum/Aorta: Mild atherosclerosis aorta. No osseous abnormality seen. XR/XR chest 1V portable [id number] IMPRESSION: 1. LEFT subclavian 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/pacer. 2. Mild cardiomegaly. 3. No acute cardiopulmonary disease.
--- NOTE | 2021-06-01 11:17 | ECG_ITS ---
[facility] Test Date: 2021-06-01 Pat Name: Essie Alejandre Department: Room: Gender: Female Machine Puller: : 1950 Requested By: Kenny Jauregui Order Number: [id number] Jj MD: Ghulam Allen M.D. Measurements Intervals [place] Rate: 76 P: [place]: QRS: -69 QRSD: 153 T: 105 QT: 497 QTc: 561 Interpretive Statements ELECTRONIC VENTRICULAR PACEMAKER ABNORMAL RHYTHM ECG Compared to ECG 07/26/2018 12:46:30 Atrial fibrillation no longer present Left-axis deviation no longer present Left bundle-branch block no longer present Electronically Signed On 06-01-2021 23:55:08 PEDIGREE RESEARCHER by Ghulam Allen M.D. [id number]
--- NOTE | 2021-06-01 11:24 | ED_ITS ---
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 She took couple nitroglycerin and did not have relief. But she woke up this morning she is feeling better now she has no chest pain. She states tells me that she thinks her pacemaker is gone out on her and that she was told back March it only had 6 months of battery life left. She is not had a phone pacer check done because she lost the equipment. Patient states she stays in constant A. fib. 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 CKD (chronic kidney disease) stage 3, GFR 30-59 ml/min GERD (gastroesophageal reflux disease) Gout High risk medication use High risk medication use HTN (hypertension) Hyperlipidemia Left bundle branch block MRSA carrier BASIA (obstructive sleep apnea) PAD (peripheral artery disease) Recurrent UTI Renal artery stenosis Right internal carotid artery aneurysm Sleep apnea Vertebral artery stenosis Vertebrobasilar insufficiency Surgical History H/O cardiac radiofrequency ablation S/P angioplasty with stent S/P appendectomy S/P CABG (coronary artery bypass graft) S/P section S/P hysterectomy S/P ICD (internal cardiac 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) procedure Status post aorto-coronary artery bypass graft Status post tubal ligation Family History Father , AT AGE 65 Hyperlipidemia CAD (coronary artery disease) Hypertension Rheumatoid arthritis Mother , AT AGE 65 Hyperlipidemia CAD (coronary artery disease) Hypertension Diabetes Sister Hyperlipidemia CAD (coronary artery disease) Hypertension Diabetes Other Cancer Social History Smoking and tobacco status: never smoked Second hand smoke exposure: No Alcohol intake: never Marital status: Current occupational status: retired History of recent travel: No Course Vital Signs: Vital signs: Vital Signs Temperature 97.6 F 06/01/21 11:08 Pulse Rate 85 06/01/21 11:08 Respiratory Rate 16 06/01/21 11:08 Blood Pressure 149/78 06/01/21 11:08 Pulse Oximetry 94 06/01/21 11:08 Discharge Plan Discharge Prescriptions: No Action docusate sodium [Stool Softener] 100 mg capsule See Rx Instructions .ROUTE .COMPLEX PRNRF: 0 omega-3 fatty acids [Fish Oil Concentrate] 1,000 mg capsule 1,000 mg PO DAILY RF: 0 glucosamine-chondroitin 900 mg tablet 1 mg PO DAILY RF: 0 acetaminophen [Tylenol Arthritis Pain] 650 mg tablet extended release 650 mg PO Q12H RF: 0 calcium carbonate-vitamin D3 [Calcium 600 + D(3)] 600 mg(1,500mg) -200 unit tablet 1 tab PO DAILY RF: 0 cholecalciferol (vitamin D3) 125 mcg (5,000 unit) capsule 125 mcg PO DAILY RF: 0 sertraline 100 mg tablet 100 mg PO Q24H 90 Days Qty: 90 RF: 3 isosorbide mononitrate 60 mg tablet extended release 24 hr 60 mg PO DAILY RF: 0 lisinopril 20 mg tablet 20 mg PO DAILY Qty: 90 RF: 3 nitroglycerin [Nitrostat] 0.4 mg tablet, sublingual 0.4 mg SUBLINGUAL Q5M PRN (Reason: chest pain) Qty: 25 RF: 3 clopidogrel 75 mg tablet 75 mg PO DAILY Qty: 90 RF: 3 furosemide 40 mg tablet 40 mg PO BID Qty: 180 RF: 3 ferrous sulfate [Iron (ferrous sulfate)] 325 mg (65 mg iron) tablet 325 mg PO DAILY Qty: 90 RF: 1 pantoprazole 40 mg tablet,delayed release (DR/EC) 40 mg PO BID Qty: 180 RF: 3 Xarelto 15 mg tablet 15 mg PO DAILY Qty: 90 RF: 3 allopurinol 100 mg tablet 400 mg PO DAILY Qty: 120 RF: 3 colchicine 0.6 mg tablet See Rx Instructions PO .COMPLEX Qty: 15 RF: 3 prednisone 5 mg tablet 5 mg PO DAILY Qty: 90 RF: 1 metoprolol tartrate 25 mg tablet See Rx Instructions .ROUTE .COMPLEX Qty: 60 RF: 0 potassium chloride 10 mEq capsule, extended release See Rx Instructions .ROUTE .COMPLEX Qty: 30 RF: 0 nitrofurantoin monohyd/m-cryst [Macrobid] 100 mg capsule 100 mg PO BID Qty: 60 RF: 2 Coding Level of Care Code ED [employer] Co[employer] Operator for Dario Guzman
--- NOTE | 2021-06-01 12:42 | PC.NURSE ---
[employer] pacemaker interrogated.
--- NOTE | 2021-06-01 12:48 | W.ED.CHESTPA ---
HPI - Chest Pain General: Chief Complaint: Chest Pain Stated Complaint: high b/p chest feels tight and weighted Time Seen by Provider: 06/01/21 12:19 History of Present Illness: HPI narrative: Ms. Alejandre is a 70-year-old lady with complex past medical history including CABG, ICD, CKD, hypertension, hyperlipidemia, atrial fibrillation on Xarelto who presents the emergency department due to chest pressure. She reports being at her baseline health with exception of perhaps a mild nonproductive cough for the past 3 days. 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 She awoke at about 4 AM due to pressure in the middle of her chest. There was no significant radiation. There has been associated shortness of breath. No other typical cardiac features. This persisted and at worst was moderate to severe in intensity. There were no specific exacerbating factors identified. Symptoms have spontaneously improved though still are minimally present. She denies history of chest pressure similar essentially since her CABG in 2001. No other specific changes in health, exacerbating, or alleviating factors identified. MD complaint: chest heaviness Pertinent past history: coronary artery disease, prior [place] and CABG Onset (ago): hour(s) Timing of current episode: constant and other Prior episodes: No Onset: during rest Pain location: substernal Pain radiation: none Severity: moderate Quality: heaviness Relieving factors: nothing Exacerbating factors: nothing Associated symptoms: Reports other Treatment prior to arrival: nitroglycerin (No significant improvement) Review of Systems General: Reports: 10 or more systems reviewed and unremarkable except in HPI and below PFS ED PFSH: Medical History Anemia Anticoagulant long-term use Atrial fibrillation Cardiomyopathy CHF (congestive heart failure) Chronic renal insufficiency, stage II (mild) Chronic tophaceous gout of both hands CKD (chronic kidney disease) stage 3, GFR 30-59 ml/min GERD (gastroesophageal reflux disease) Gout High risk medication use High risk medication use HTN (hypertension) Hyperlipidemia Left bundle branch block MRSA carrier BASIA (obstructive sleep apnea) PAD (peripheral artery disease) Recurrent UTI Renal artery stenosis Right internal carotid artery aneurysm Sleep apnea Vertebral artery stenosis Vertebrobasilar insufficiency Surgical History H/O cardiac radiofrequency ablation S/P angioplasty with stent S/P appendectomy S/P CABG (coronary artery bypass graft) S/P section S/P hysterectomy S/P ICD (internal cardiac 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) procedure Status post aorto-coronary artery bypass graft Status post tubal ligation Family History Father , AT AGE 65 Hyperlipidemia CAD (coronary artery disease) Hypertension Rheumatoid arthritis Mother , AT AGE 65 Hyperlipidemia CAD (coronary artery disease) Hypertension Diabetes Sister Hyperlipidemia CAD (coronary artery disease) Hypertension Diabetes Other Cancer Social History Smoking and tobacco status: never smoked Second hand smoke exposure: No Alcohol intake: never Marital status: Current occupational status: retired History of recent travel: No Physical Exam Const: COMMON NORMALS: alert GENERAL APPEARANCE: cooperative and well developed HENMT: COMMON NORMALS: normocephalic and atraumatic HEAD & SCALP: normocephalic and atraumatic THROAT: posterior oropharynx normal Eye: COMMON NORMALS: conjunctivae normal CONJUNCTIVA: Yes conjunctivae normal SCLERA: sclerae normal Neck/C-Spine: COMMON NORMALS: supple GENERAL: Yes trachea midline Resp: COMMON NORMALS: normal respiratory effort EFFORT & INSPECTION: Yes able to speak in complete sentences Cardio: RHYTHM: abnormal rhythm irregularly irregular OTHER: Normal peripheral perfusion, 1+ edema. GI: COMMON NORMALS: Soft to palpation PALPATION: Yes Soft to palpation and No Tenderness to palpation present (GI) PERCUSSION: normal to percussion Extremity: GENERAL: Yes normal exam except as noted and Yes edema (Mild) Neuro: COMMON NORMALS: moves all extremities SENSORIUM/ORIENTATION: Yes alert and No Orientation impaired Psych: COMMON NORMALS: mental status grossly normal and Normal thought process present THOUGHT PROCESS: Normal thought process present Course ED course: - Patient was seen and evaluated by me at bedside - Patient placed on cardiac monitors, IV access obtained - Initial evaluation notable for exam as above - Labs notable for mild leukocytosis of unclear etiology. Mild hypokalemia without other significant metabolic abnormality. Delta troponin is negative. - Imaging notable for mild cardiomegaly without evidence of lobar consolidation - Upon serial reexamination after treatment the patient was improved - Based on patient history, evaluation, labs, and imaging as interpreted the most likely cause of the patient's condition is chest pain of unclear etiology - The results of ED evaluation were discussed with the patient. I offered admission given that the patient is not low risk by heart score however explained limited bed availability and that the patient would likely be holding in the emergency department. Patient prefers outpatient management. I explained risk ratification and answered patient questions. Case discussed with cardiology for medication adjustments. I discussed prescriptions and/or symptomatic cares (if applicable) including appropriate and responsible use, followup plan, and return precautions. The patient verbalized understanding and felt safe for discharge. - Patient discharged in satisfactory condition. Note: Click bubbles or prepopulated arriaga in note writing are used for assistance with data collection and billing and are inherently more limited than narrative and other text portions of this note. Please use narrative for additional clinical history and defer to narrative/free test for any case of contradictory information. If information appears in only free text or click bubble it should be considered present or absent as reported. Please contact note radio script writer for clarifications of clinical information or contradictory information. MDM is a brief summary, contradictory or erroneous seeming information should be clarified and full note should be reviewed. Vital Signs: Vital signs: Vital Signs Temperature 97.8 F 06/01/21 13:32 Pulse Rate 76 06/01/21 13:32 Respiratory Rate 17 06/01/21 13:32 Blood Pressure 147/74 06/01/21 13:32 Pulse Oximetry 95 06/01/21 13:32 MDM - Chest Pain MDM Narrative Medical decision making narrative: 70-year-old lady with extensive cardiac history presenting with chest pain. This was associated with high blood pressure. Both improved upon arrival to the emergency department. Negative cardiac work-up. Discussed with cardiology. Offered admission however current COVID-19 situation severely limits bed availability. Patient comfortable with outpatient follow-up. Medical Records Attestation: I reviewed the patient's medical records. Lab Data Attestation: I reviewed the patient's lab results. Result diagrams: 06/01/21 13:15 06/01/21 13:15 Labs: Lab Results 06/01/21 06/01/21 06/01/21 13:15 13:15 13:15 WBC 12.4 10^3/uL H 10^3/uL (4.0-10.0) RBC 3.70 10^6/uL L 10^6/uL (4.1-5.3) Hgb 12.5 g/dL g/dL (11.5-15.3) Hct 36.8 % L % (37.0-47.0) MCV 99.5 fl H fl (81-99) MCH 33.8 pg pg (28.0-34.0) MCHC 34.0 g/dL g/dL (30.0-36.0) RDW 15.7 % H % (12.1-15.1) Plt Count 205 10^3/cmm 10^3/cmm (130-400) MPV 9.9 fL fL (7.4-10.4) Neut % (Auto) 86.5 % % Lymph % (Auto) 8.3 % % [place] % (Auto) 4.1 % % Eos % (Auto) 0.3 % % Baso % (Auto) 0.3 % % Neut # (Auto) 10.74 10^3/uL H 10^3/uL (1.8-7.7) Lymph # (Auto) 1.0 10^3/uL 10^3/uL (0.8-4.8) [place] # (Auto) 0.5 10^3/uL 10^3/uL (0.2-0.9) Eos # (Auto) 0.0 10^3/uL 10^3/uL (0.0-0.8) Baso # (Auto) 0.0 10^3/uL 10^3/uL (0.0-0.1) Nucleated RBC % (auto) 0 % % Nucleated RBCs # 0.0 /100WBC /100WBC Sodium 144 mmol/L mmol/L (136-145) Potassium 3.4 mmol/L L mmol/L (3.5-5.1) Chloride 104 mmol/L mmol/L (98-107) Carbon Dioxide 25 mmol/L mmol/L (22-29) Anion Gap 18.4 (5-19) BUN 17 mg/dL mg/dL (8-23) Creatinine 0.7 mg/dL mg/dL (0.5-0.9) GFR Calculation 83.2 mL/min L mL/min (90-130) Glucose 115 mg/dL mg/dL (65-115) Calculated Osmolality 300 mOsm/kg H mOsm/kg (285-295) Calcium 8.6 mg/dL mg/dL (8.5-10.5) Total Bilirubin 0.8 mg/dL mg/dL (0.15-1.2) AST 28 U/L U/L (0-32) ALT 16 U/L U/L (0-33) Alkaline Phosphatase 111 IU/L H IU/L (35-105) Troponin T Baseline 25 ng/L H ng/L (0-10) Troponin T 120 Minute Delta Troponin T Total Protein 6.4 g/dL L g/dL (6.6-8.7) Albumin 4.5 g/dL g/dL (3.5-5.2) Globulin 1.9 g/dL g/dL (1.3-4.6) Lipase 20 U/L U/L (13-60) Procalcitonin 06/01/21 06/01/21 13:15 15:20 WBC RBC Hgb Hct MCV MCH MCHC RDW Plt Count MPV Neut % (Auto) Lymph % (Auto) [place] % (Auto) Eos % (Auto) Baso % (Auto) Neut # (Auto) Lymph # (Auto) [place] # (Auto) Eos # (Auto) Baso # (Auto) Nucleated RBC % (auto) Nucleated RBCs # Sodium Potassium Chloride Carbon Dioxide Anion Gap BUN Creatinine GFR Calculation Glucose Calculated Osmolality Calcium Total Bilirubin AST ALT Alkaline Phosphatase Troponin T Baseline Troponin T 120 Minute 22.55 ng/L H ng/L (0-10) Delta Troponin T -2.45 ABS# L ABS# (0-10) Total Protein Albumin Globulin Lipase Procalcitonin 0.03 ng/mL ng/mL (0-0.5) EKG Data^ EKG 1: Attestation: I personally reviewed and interpreted this EKG as follows: EKG interpretation date: 06/01/21 EKG interpretation time: 12:37 Interpretation: Twelve-lead EKG shows an irregular rhythm at a rate of 76 No ND interval, QRS duration 153, QTc 528 Left axis deviation Interpretation: Ventricularly paced rhythm with occasional [place] beat. EKG 2: Attestation: I personally reviewed and interpreted this EKG as follows: EKG interpretation date: 06/01/21 EKG interpretation time: 13:07 Interpretation: Twelve-lead EKG shows a regular rhythm at a rate of 71. No ND interval, QRS duration 150, QTc 543. Left axis deviation. Interpretation ventricular pacemaker Discharge Plan Discharge Patient Disposition: Home Clinical Impression: Chest pain, Hypokalemia, Leukocytosis Condition: Stable Prescriptions: New isosorbide mononitrate 30 mg tablet extended release 24 hr 30 mg PO .qhs Qty: 30 0RF No Action docusate sodium [Stool Softener] 100 mg capsule See Rx Instructions .ROUTE .COMPLEX PRN0RF Dose Instruction: Take 1 capsule by mouth twice daily Rx Instructions: Take 1 capsule by mouth twice daily PRN; omega-3 fatty acids [Fish Oil Concentrate] 1,000 mg capsule 1,000 mg PO DAILY 0RF glucosamine-chondroitin 900 mg tablet 1 mg PO DAILY 0RF acetaminophen [Tylenol Arthritis Pain] 650 mg tablet extended release 650 mg PO Q12H 0RF calcium carbonate-vitamin D3 [Calcium 600 + D(3)] 600 mg(1,500mg) -200 unit tablet 1 tab PO DAILY 0RF cholecalciferol (vitamin D3) 125 mcg (5,000 unit) capsule 125 mcg PO DAILY 0RF sertraline 100 mg tablet 100 mg PO Q24H 90 Days Qty: 90 3RF isosorbide mononitrate 60 mg tablet extended release 24 hr 60 mg PO DAILY 0RF lisinopril 20 mg tablet 20 mg PO DAILY Qty: 90 3RF nitroglycerin [Nitrostat] 0.4 mg tablet, sublingual 0.4 mg SUBLINGUAL Q5M PRN (Reason: chest pain) Qty: 25 3RF clopidogrel 75 mg tablet 75 mg PO DAILY Qty: 90 3RF furosemide 40 mg tablet 40 mg PO BID Qty: 180 3RF ferrous sulfate [Iron (ferrous sulfate)] 325 mg (65 mg iron) tablet 325 mg PO DAILY Qty: 90 1RF pantoprazole 40 mg tablet,delayed release (DR/EC) 40 mg PO BID Qty: 180 3RF Xarelto 15 mg tablet 15 mg PO DAILY Qty: 90 3RF allopurinol 100 mg tablet 400 mg PO DAILY Qty: 120 3RF colchicine 0.6 mg tablet See Rx Instructions PO .COMPLEX Qty: 15 3RF Rx Instructions: take 1 tab 3 times a week on Tue, Tue and Tuesday PO; prednisone 5 mg tablet 5 mg PO DAILY Qty: 90 1RF metoprolol tartrate 25 mg tablet See Rx Instructions .ROUTE .COMPLEX Qty: 60 0RF Dose Instruction: TAKE 1 TABLET BY MOUTH TWICE DAILY Rx Instructions: TAKE 1 TABLET BY MOUTH TWICE DAILY potassium chloride 10 mEq capsule, extended release See Rx Instructions .ROUTE .COMPLEX Qty: 30 0RF Dose Instruction: TAKE 1 CAPSULE BY MOUTH EVERY DAY Rx Instructions: TAKE 1 CAPSULE BY MOUTH EVERY DAY nitrofurantoin monohyd/m-cryst [Macrobid] 100 mg capsule 100 mg PO BID Qty: 60 2RF Rx Instructions: must administer with a meal/food Discharge Orders: Discharge ED (Routine); Ordered 06/01/21 Ordered By: Kenny Jauregui Referrals: Maya Marin FNP [Primary Care Provider] - Discharge Diet: Usual diet Discharge Activity: Resume usual activity Patient Instructions: Chest Pain (ED) Activity Restrictions/Additional Instructions: Thank you for visiting the emergency department. You were seen and evaluated for chest pain. The exact cause your chest pain is unclear. Given your cardiac history unfortunately you are not low risk however given current constraints we will proceed with further outpatient management. I will message our registered nurse hh case manager for stress test and cardiology follow-up. As discussed we will add 30 mg of isosorbide mononitrate to your night medications in addition to continuing your 60 mg during the morning. Please follow-up with your primary care provider. Return to the emergency department for worsening symptoms or anything else that you are concerned about and feel needs emergency department evaluation. Coding Level of Care Code ED Composition Roll Maker And Cutter for Dario Fwmarty Exam Comprehensive
--- NOTE | 2021-06-01 13:17 | ECG_ITS ---
[facility] Test Date: 2021-06-01 Pat Name: Essie Alejandre Department: Room: Gender: Female Industrial Organization Manager: : 1950 Requested By: Kenny Jauregui Order Number: [id number] Jj MD: Ghulam Allen M.D. Measurements Intervals [place] Rate: 71 P: DC: QRS: -72 QRSD: 150 T: 101 QT: 498 QTc: 543 Interpretive Statements ELECTRONIC VENTRICULAR PACEMAKER ABNORMAL RHYTHM ECG Compared to ECG 07/26/2018 12:46:30 Atrial fibrillation no longer present Left-axis deviation no longer present Left bundle-branch block no longer present Electronically Signed On 06-02-2021 0:01:23 CAR FERRY MASTER by Ghulam Aleln M.D. [id number]
[2021-06-01 13:25] LABS: Basophils % 0.3 %; Eosinophils % 0.3 %; Hematocrit 36.8 % (37.0-47.0); Hemoglobin 12.5 g/dL (11.5-15.3); Lymphocytes % 8.3 %; Mean Corpuscular Hemoglobin 33.8 pg (28.0-34.0); Mean Corpuscular Volume 99.5 fl (81-99); Mean Platelet Volume 9.9 fL (7.4-10.4); Monocytes # 0.5 10^3/uL (0.2-0.9); Monocytes % 4.1 %; Neutrophils # 10.74 10^3/uL (1.8-7.7); Neutrophils % 86.5 %; Nucleated Red Blood Cells % 0 %; Platelet Count 205 10^3/cmm (130-400); Red Cell Distribution Width 15.7 % (12.1-15.1); White Blood Count 12.4 10^3/uL (4.0-10.0)
[2021-06-01] MEDS: aspirin 81 mg Chew Tablet 324 MG PO (13:28)
[2021-06-01 13:32] VITALS: BP 147/74; PULSE 76; RESP 17; TEMP 36.6; O2SAT 95
[2021-06-01 13:46] LABS: Alanine Aminotransferase 16 U/L (0-33); Albumin Level 4.5 g/dL (3.5-5.2); Alkaline Phosphatase 111 IU/L (35-105); Anion Gap 18.4 (5-19); Aspartate Amino Transferase 28 U/L (0-32); Blood Urea Nitrogen 17 mg/dL (8-23); Calcium 8.6 mg/dL (8.5-10.5); Carbon Dioxide 25 mmol/L (22-29); Chloride 104 mmol/L (98-107); Globulin 1.9 g/dL (1.3-4.6); Glomerular Filtration Rate 83.2 mL/min (90-130); Glucose 115 mg/dL (65-115); Lipase 20 U/L (13-60); Osmolality Calculated 300 mOsm/kg (285-295); Potassium 3.4 mmol/L (3.5-5.1); Sodium 144 mmol/L (136-145); Total Bilirubin 0.8 mg/dL (0.15-1.2); Total Protein 6.4 g/dL (6.6-8.7)
[2021-06-01 13:48] LABS: Troponin(5th) Baseline 25 ng/L (0-10)
[2021-06-01 14:27] LABS: Procalcitonin 0.03 ng/mL (0-0.5)
[2021-06-01 15:58] LABS: Troponin 5 2HR 22.55 ng/L (0-10)
[2021-06-01 15:59] LABS: Troponin 5 2HR Delta -2.45 ABS# (0-10)
[2021-06-01] MEDS: potassium chloride ER 20 mEq Tablet 40 MEQ PO (17:09)
--- NOTE | 2021-06-02 13:14 | DCPLANNER ---
diabetes territory manager had message to schedule an outpatient stress test for patient. diabetes territory manager faxed signed order to centralized scheduling, who will call patient with appointment information.
--- NOTE | 2021-06-03 12:43 | DCPLANNER ---
Addendum entered by Kiera Chambers 07/23/21 09:15: Patient had an outpatient stress test scheduled for 07.14.21 - patient did attend appointment. Addendum entered by Kiera Chambers 06/12/21 11:33: Patient had a follow up appointment scheduled for 06.08.21 with Linda Webster at [facility] - patient did attend appointment. Original Note: transportation project manager had message to schedule a follow up appointment for patient with [facility]. transportation project manager called [facility], spoke with [facility], gave clinic patients information. A follow up appointment was scheduled for Tuesday, June 08, 2021 at 1:00 with FURNACE INSTALLER, Linda Webster. transportation project manager called patient, unable to speak with patient at this time. transportation project manager left a voicemail for patient with appointment information.
== END 2021-06-01 17:25 | disposition home or self-care (01) ==
PROVIDERS: Emergency Provider Emergency Medicine; PCP Nurse Practitioner Family
DX: R07.9 Chest pain, unspecified (principal); E87.6 Hypokalemia; D72.829 Elevated white blood cell count, unspecified; Z79.02 Long term (current) use of antithrombotics/antiplatelets; I13.0 Hypertensive heart and chronic kidney disease with heart failure and stage 1 through stage 4 chronic kidney disease, or unspecified chronic kidney disease; N18.2 Chronic kidney disease, stage 2 (mild); I50.9 Heart failure, unspecified; E78.5 Hyperlipidemia, unspecified; Z95.1 Presence of aortocoronary bypass graft
CPT/HCPCS: 71045; 80053; 83690; 84145; 84484; 85025; 93005; 99283

== ENCOUNTER → 2021-06-02 10:07 | Outpatient (BNVA) | payer BC, MEDICARE, SELFPAY | PROVIDERS: PCP Family Medicine; Referring Provider Physical Medicine & Rehabilitation; Visit Provider Anesthesiology Pain Medicine | DX: G89.29 Other chronic pain (principal); M47.816 Spondylosis without myelopathy or radiculopathy, lumbar region; M51.16 Intervertebral disc disorders with radiculopathy, lumbar region; M25.552 Pain in left hip | CPT/HCPCS: 99204 ==

== ENCOUNTER 2021-07-14 08:04 | Outpatient (CLI) | payer BC, MEDICARE, SELFPAY ==
--- NOTE | 2021-07-14 08:12 | ECG_ITS ---
[facility] Test Date: 2021-07-14 Pat Name: Essie Alejandre Department: Room: Gender: Female Counselor Camp: : 1950 Requested By: Linda Webster Order Number: [id number] Jj MD: Kel Molina M.D. Interpretive Statements NAME OF STUDY: LEXISCAN SESTAMIBI STRESS TEST INDICATION: [Chest Pain, ] Procedure: At the baseline, the blood pressure was 149/83 mmHg with a heart rate of 76 bpm. The electrocardiogram showed paced rhythm The Lexiscan was infused over a period of 20 seconds. A total of 0.4 mg of Lexiscan was infused. The stress phase was continued for a total of 5 minutes. Heart rate was at the end of stress phase was 73 bpm and a blood pressure of 155/77 mmHg. The EKG at the peak infusion revealed shows paced rhtyhm with PVCs. Sestamibi was injected 20 seconds after the Lexiscan infusion. Blood pressure at the end of recovery phase was 144/76 mmHg with a heart rate of 72 bpm. Conclusion: 1. Normal EKG response to Lexiscan infusion 2. No Lexiscan induced chest pain or cardiac arrhythmia. 3. Normal blood pressure and heart rate response. 4. Sestamibi/sestamibi perfusion scan pending; see separate report. Electronically Signed On 08-15-2021 12:28:09 CDT by Kel Molina M.D. [id number]
--- NOTE | 2021-07-14 08:12 | NMCV_ITS ---
NM shireen perf SPECT r/s* [id number] Essie Alejandre Age: 70 Gender: F : 1950 Exam Date: 07/14/2021 08:12 Ordering Phys: Linda Webster Technologist: MARILYN Sneed Exam Location: [facility] Indications: HEART FAILURE STRESS TEST Please see separate stress test report in [facility] for full findings IMAGE PROTOCOL Rest/Stress 1 Lexiscan Day Radiopharmaceutical Dose (mCi) Administration Site Administered by Rest: Tc-99m 10.9 IV MARILYN Sneed Sestamibi Stress:Tc-99m 32.4 IV MARILYN Pozo Sestamibi Rest: 14-Jul-2021 60 Discovery 630 Stress: 14-Jul-2021 30 Discovery 630 0.4mg Lexiscan. Images obtained in supine and prone position. SPECT RESULTS Technical Quality: Excellent Raw Data Analysis: Normal Image Corrections: No attenuation or motion correction applied Summed Stress Score: 5 Summed Rest Score: 4 Summed Difference Score: 2 PERFUSION FINDINGS There is a mostly fixed perfusion defect noted in the apical inferior and lateral kee. This is consistent with small sized prior infarct with small area of jodi-infarct ischemia FUNCTIONAL RESULTS (calculated via Gated SPECT) Stress Image LV EF (%): 52 Stress EDV (mL):127 TID: 0.99 Stress ESV (mL):61 FUNCTIONAL FINDINGS: There is normal left ventricular systolic function. IMPRESSIONS 1. Abnormal myocardial perfusion imaging with prior infarct and small area of jodi-infarct ischemia noted in the apical inferior and lateral kee 2. LV systolic function is normal Kel Molina MD (Electronically Signed) Final Date: 14 July 2021 12:28 S
[2021-07-14 08:33] VITALS: BMI 31.2
[2021-07-14] MEDS: regadenoson 0.4 Mg/5 ml Syringe IVP (09:49)
[2021-07-14 10:34] VITALS: BP 144/76; PULSE 70
== END 2021-07-14 08:05 | disposition home or self-care (01) ==
LOC: CDL 08:05
PROVIDERS: PCP Family Medicine; Visit Provider Nurse Practitioner Family
DX: R07.9 Chest pain, unspecified (principal); R06.02 Shortness of breath; I50.9 Heart failure, unspecified
CPT/HCPCS: 78452; 93017; A9500; J2785

== ENCOUNTER → 2021-07-27 10:01 | Outpatient (BNVA) | payer BC, MEDICARE, SELFPAY | PROVIDERS: PCP Family Medicine; Visit Provider Family Medicine | DX: R53.83 Other fatigue (principal); E83.42 Hypomagnesemia; K52.9 Noninfective gastroenteritis and colitis, unspecified; I70.1 Atherosclerosis of renal artery; R19.7 Diarrhea, unspecified; E78.2 Mixed hyperlipidemia | CPT/HCPCS: 80053; 80061; 83735; 84443 ==

== ENCOUNTER → 2021-07-28 12:52 | Outpatient (BNVA) | payer BC, MEDICARE, SELFPAY | PROVIDERS: PCP Family Medicine; Visit Provider Internal Medicine Rheumatology | DX: M1A.9XX1 Chronic gout, unspecified, with tophus (tophi) (principal); N18.30 Chronic kidney disease, stage 3 unspecified; Z79.899 Other long term (current) drug therapy | CPT/HCPCS: 99214 ==

== ENCOUNTER → 2021-07-30 13:58 | Outpatient (BNVA) | payer BC, MEDICARE, SELFPAY | PROVIDERS: PCP Family Medicine; Visit Provider Anesthesiology Pain Medicine | DX: Z87.891 Personal history of nicotine dependence (principal); M54.16 Radiculopathy, lumbar region | CPT/HCPCS: 64483; 64484; J1100; J3490 ==

== ENCOUNTER → 2021-08-05 09:13 | Outpatient (BNVA) | payer BC, MEDICARE, SELFPAY | PROVIDERS: PCP Family Medicine; Visit Provider Family Medicine | DX: E87.6 Hypokalemia (principal); E83.42 Hypomagnesemia; K52.9 Noninfective gastroenteritis and colitis, unspecified; M10.9 Gout, unspecified; Z79.899 Other long term (current) drug therapy | CPT/HCPCS: 80048; 82306; 82784; 83516; 84550 ==

== ENCOUNTER 2021-08-08 17:10 | Outpatient (CLI) | payer BC, MEDICARE, SELFPAY ==
[2021-08-08 18:40] LABS: Collection Time Urine 1718; Total Volume Urine 1050 ml
[2021-08-08 19:04] LABS: Magnesium 24 Hour Urine 48.3 mg/dL (72.9-121.5)
== END 2021-08-08 17:11 | disposition home or self-care (01) ==
PROVIDERS: PCP Family Medicine; Visit Provider Family Medicine
DX: E87.6 Hypokalemia (principal); E83.42 Hypomagnesemia; K52.9 Noninfective gastroenteritis and colitis, unspecified; M10.9 Gout, unspecified
CPT/HCPCS: 83735

== ENCOUNTER → 2021-08-14 08:05 | Outpatient (BNVA) | payer BC, MEDICARE, SELFPAY | PROVIDERS: PCP Family Medicine; Visit Provider Nurse Practitioner | DX: G45.0 Vertebro-basilar artery syndrome (principal); I67.1 Cerebral aneurysm, nonruptured; I48.91 Unspecified atrial fibrillation; I25.10 Atherosclerotic heart disease of native coronary artery without angina pectoris; Z86.73 Personal history of transient ischemic attack (TIA), and cerebral infarction without residual deficits; Z79.01 Long term (current) use of anticoagulants | CPT/HCPCS: 99213; 99214 ==

== ENCOUNTER → 2021-08-18 08:52 | Day surgery (SDC) | payer BC, MEDICARE, SELFPAY ==
[2021-08-18] MEDS: magnesium sulfate premix 2 GM/50 ML PIGGYBACK IV (09:13)
[2021-08-18 09:20] VITALS: BP 115/66; PULSE 71; RESP 18; TEMP 36.3; O2SAT 96
== END ==
PROVIDERS: PCP Family Medicine; Visit Provider Family Medicine
DX: E83.42 Hypomagnesemia (principal); K52.9 Noninfective gastroenteritis and colitis, unspecified
CPT/HCPCS: 96365; 96366; J3475

== ENCOUNTER → 2021-08-19 09:55 | Outpatient (BNVA) | payer BC, MEDICARE, SELFPAY | PROVIDERS: PCP Family Medicine; Visit Provider Anesthesiology Pain Medicine | DX: M79.604 Pain in right leg (principal); M79.605 Pain in left leg; Z87.891 Personal history of nicotine dependence; M51.17 Intervertebral disc disorders with radiculopathy, lumbosacral region; M47.816 Spondylosis without myelopathy or radiculopathy, lumbar region; M51.16 Intervertebral disc disorders with radiculopathy, lumbar region | CPT/HCPCS: 99214 ==

== ENCOUNTER → 2021-08-26 08:49 | Day surgery (SDC) | payer BC, MEDICARE, SELFPAY ==
[2021-08-26] MEDS: magnesium sulfate premix 2 GM/50 ML PIGGYBACK IV (09:31)
[2021-08-26 09:41] VITALS: BP 121/72; PULSE 80; RESP 18; TEMP 36.6; O2SAT 96
== END ==
PROVIDERS: PCP Family Medicine; Visit Provider Family Medicine
DX: K52.9 Noninfective gastroenteritis and colitis, unspecified (principal)
CPT/HCPCS: 96365; 96366; J3475

== ENCOUNTER 2021-09-02 10:36 | Outpatient (RCR) | payer BC, MEDICARE, SELFPAY | END 2021-09-05 23:59 | disposition home or self-care (01) | LOC: SPT 10:36 | PROVIDERS: PCP Family Medicine; Referring Provider Anesthesiology Pain Medicine; Visit Provider Anesthesiology Pain Medicine | DX: M54.50 Low back pain, unspecified (principal); G89.29 Other chronic pain | CPT/HCPCS: 97110; 97162 ==

== ENCOUNTER 2021-09-07 06:06 | Outpatient (CLI) | payer BC, MEDICARE, SELFPAY ==
--- NOTE | 2021-09-07 06:30 | USCV_ITS ---
Essie Alejandre Age: 71 Gender: F : 1950 Exam Date: 09/07/2021 06:18 Ordering Phys: Mauricio Ervin MSN AGACNP-BC Technologist: KELECHI [place] [facility] [place]ication: Vertibo-basilar syndrome Risk Factors: Previous Vascular Surgery: Right Brachial BP: / Left Brachial BP: / Right Left Velocity (cm/s) Spectral Plaque Velocity (cm/s) Spectral Plaque Syst/Diast Broadening Syst/Diast Broadening 68.30/ 12.30 Prox CCA 81.60 / 12.10 61.50/ 17.90 Mid CCA 72.90 / 14.20 60.40/ 17.60 Distal CCA 64.90 / 19.70 63.00/ 18.40 Prox ICA 83.40 / 17.90 69.10/ 22.50 Mid ICA 88.40 / 27.00 72.20/ 28.00 Distal ICA 68.80 / 25.30 60.60 ECA 79.70 1.17 ICA/CCA 1.21 Antegrade Vertebral Antegrade 38.10/ 12.40 cm/s 18.40/ 4.30 cm/s Tri Subclavian Tri 130.1 160.4 0 0 CONCLUSIONS Right ICA stenosis <50%. Left ICA stenosis <50%. Normal antegrade Doppler flow noted in the right vertebral artery. Normal antegrade Doppler flow noted in the left vertebral artery. Bandar Mack MD (Electronically Signed) Final Date: 08 Sep 2021 08:58 S
== END 2021-09-07 06:07 | disposition home or self-care (01) ==
LOC: RAD 06:07
PROVIDERS: PCP Family Medicine; Visit Provider Nurse Practitioner
DX: G45.0 Vertebro-basilar artery syndrome (principal)
CPT/HCPCS: 93880; 99214

== ENCOUNTER 2021-09-28 11:15 | Outpatient (CLI) | payer BC, MEDICARE, SELFPAY ==
[2021-09-28 12:07] LABS: Anion Gap 16.2 (5-19); Blood Urea Nitrogen 14 mg/dL (8-23); Calcium 9.3 mg/dL (8.5-10.5); Carbon Dioxide 26 mmol/L (22-29); Chloride 104 mmol/L (98-107); Glucose 101 mg/dL (65-115); Magnesium 1.4 mg/dL (1.7-2.3); Osmolality Calculated 297 mOsm/kg (285-295); Potassium 3.2 mmol/L (3.5-5.1); Sodium 143 mmol/L (136-145)
== END 2021-09-28 11:16 | disposition home or self-care (01) ==
LOC: LAB 11:18
PROVIDERS: PCP Family Medicine; Visit Provider Family Medicine
DX: E87.6 Hypokalemia (principal); E83.42 Hypomagnesemia; K52.9 Noninfective gastroenteritis and colitis, unspecified
CPT/HCPCS: 80048; 83735

== ENCOUNTER → 2021-10-13 12:07 | Outpatient (BNVA) | payer BC, MEDICARE, SELFPAY | PROVIDERS: PCP Family Medicine; Visit Provider Internal Medicine Rheumatology | DX: Z79.899 Other long term (current) drug therapy (principal); M10.9 Gout, unspecified; M1A.9XX1 Chronic gout, unspecified, with tophus (tophi) | CPT/HCPCS: 80076; 82565; 84550; 85025; 86140 ==

== ENCOUNTER 2021-11-06 16:57 | Emergency (ER) | payer BC, MEDICARE, SELFPAY ==
[2021-11-06 17:35] VITALS: BP 101/56; PULSE 70; RESP 16; TEMP 37.2; O2SAT 97; BMI 29.1
[2021-11-06 18:09] VITALS: BP 111/64; PULSE 70; RESP 16; O2SAT 97
--- NOTE | 2021-11-06 18:29 | XRR_ITS ---
PROCEDURE INFORMATION: Exam: XR Chest Exam date and time: 11/06/2021 6:45 PM Age: 71 years old Clinical indication: Other: Weakness TECHNIQUE: Imaging protocol: Radiologic exam of the chest. Views: 1 view. COMPARISON: CR XR chest 1V portable [id number] 06/01/2021 11:37 AM FINDINGS: Tubes, catheters and devices: Intact multi lead left subclavian pacemaker. Lungs: Unremarkable. No consolidation. Pleural spaces: Unremarkable. No pleural effusion. No pneumothorax. Heart/Mediastinum: Unremarkable. No cardiomegaly. Diaphragm: Mild elevation of the right diaphragm. Bones/joints: Sternotomy wires. XR/XR chest 1V portable [id number] IMPRESSION: No acute findings.
--- NOTE | 2021-11-06 18:29 | CTR_ITS ---
PROCEDURE INFORMATION: Exam: CT Head Without Contrast Exam date and time: 11/06/2021 7:56 PM Age: 71 years old Clinical indication: Dizziness; Additional info: Weakness, dizziness TECHNIQUE: Imaging protocol: Computed tomography of the head without contrast. Radiation optimization: All CT scans at this facility use at least one of these dose optimization techniques: automated exposure control; mA and/or kV adjustment per patient size (includes targeted exams where dose is matched to clinical indication); or iterative reconstruction. COMPARISON: OT MR angio head wo con [id number] 03/05/2021 11:16 AM RADIATION DOSE METRICS: Total DLP (mGy-cm): 842.18 FINDINGS: Brain: Mild diffuse cortical volume loss. Mild hypodensities in supratentorial periventricular and subcortical white matter, consistent with microangiopathy. No intracranial hemorrhage. Cerebral ventricles: No ventriculomegaly. Paranasal sinuses: Visualized sinuses are unremarkable. No fluid levels. Mastoid air cells: Visualized mastoid air cells are well aerated. Orbital cavities: Prior cataract surgery. Bones/joints: Unremarkable. No acute fracture. Soft tissues: Unremarkable. Vasculature: No hyperdense artery. CT/CT head wo con* [id number] IMPRESSION: No acute finding.
--- NOTE | 2021-11-06 18:30 | ECG_ITS ---
[facility] Test Date: 2021-11-06 Pat Name: Essie Alejandre Department: Room: Gender: Female Feeder Loader: : 1950 Requested By: Cristhian Kowalski Order Number: [id number] Jj MD: Maurisio Hammond M.D. Measurements Intervals [place] Rate: 72 P: MA: QRS: -73 QRSD: 150 T: 99 QT: 478 QTc: 525 Interpretive Statements ELECTRONIC VENTRICULAR PACEMAKER ABNORMAL RHYTHM ECG WARNING: DATA QUALITY MAY AFFECT INTERPRETATION Compared to ECG 06/01/2021 13:01:34 No significant changes Electronically Signed On 11-07-2021 12:25:00 CDT by Maurisio Hammond M.D. [id number]
--- NOTE | 2021-11-06 18:58 | W.ED.DIZZY ---
HPI - Dizziness General: Chief Complaint: Dizziness Stated Complaint: Low B/P Time Seen by Provider: 11/06/21 18:13 Source: patient and family History of Present Illness: HPI Narrative: 71-year-old female presenting with generalized weakness and dizziness. Symptoms started while she was in [employer]. She says even leaning on the cart, she was having trouble getting around. Dizziness is not necessarily vertiginous. She has been taking her blood pressure the last couple of days, and has had episodes of low blood pressure. Lowest was in the 70s systolic. It has improved currently. She still feeling a bit weak. She has had a cough. No fever. She had diarrhea for 3 weeks or so until about a week ago she says. No focal weakness. No focal vision changes, etc. 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 She is supposed to be taking Xarelto, but had to stop due to cost. She does take Plavix and aspirin MD elicited complaint: dizziness and lightheadedness Onset (ago): hour(s) Timing: gradual onset Severity: moderate Description: lightheadedness and difficulty walking Context: other History of similar symptoms: Yes Exacerbating factors: movement/ambulation Relieving factors: nothing Associated symptoms: Reports headache(s) and nausea; Denies chest pain, chills, fevers/chills, short of breath or vomiting Associated neuro symptoms: Reports difficulty speaking (mild per patient.) and gait changes; Deny confusion, dysphagia, diplopia, extremity weakness, facial numbness, facial weakness, numbness in extremities or visual changes Review of Systems Const: Denies: fever(s) or chills Eyes: Denies: change in vision or blurry vision ENMT: Denies: throat pain Card: Denies: chest pain Resp: Reports: productive cough; Denies: dyspnea GI: Reports: nausea and diarrhea; Denies: vomiting or dysphagia Neuro: Reports: headache(s); Denies: numbness in extremities or confusion FORMERLY [facility], [facility]–1983 ED PFSH: Medical History Anemia Anticoagulant long-term use Atrial fibrillation Cardiomyopathy CHF (congestive heart failure) Chronic renal insufficiency, stage II (mild) Chronic tophaceous gout of both hands CKD (chronic kidney disease) stage 3, GFR 30-59 ml/min GERD (gastroesophageal reflux disease) Gout High risk medication use High risk medication use HTN (hypertension) Hyperlipidemia Left bundle branch block MRSA carrier BASIA (obstructive sleep apnea) PAD (peripheral artery disease) Recurrent UTI Renal artery stenosis Right internal carotid artery aneurysm Sleep apnea Vertebral artery stenosis Vertebrobasilar insufficiency Surgical History H/O cardiac radiofrequency ablation S/P angioplasty with stent S/P appendectomy S/P CABG (coronary artery bypass graft) S/P section S/P hysterectomy S/P ICD (internal cardiac 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) procedure Status post aorto-coronary artery bypass graft Status post tubal ligation Family History Father , AT AGE 65 Hyperlipidemia CAD (coronary artery disease) Hypertension Rheumatoid arthritis Mother , AT AGE 65 Hyperlipidemia CAD (coronary artery disease) Hypertension Diabetes Sister Hyperlipidemia CAD (coronary artery disease) Hypertension Diabetes Other Cancer Social History Smoking and tobacco status: never smoked Second hand smoke exposure: No Alcohol intake: never Marital status: Current occupational status: retired History of recent travel: No Physical Exam Const: COMMON NORMALS: no acute distress GENERAL APPEARANCE: cooperative and frail appearing; not ill appearing HENMT: COMMON NORMALS: normocephalic and atraumatic HEAD & SCALP: normocephalic and atraumatic FACE & SINUS: normal facial exam Eye: COMMON NORMALS: Equal, round and reactive pupils present and EOMs intact bilaterally PUPIL: Yes Equal, round and reactive pupils present Neck/C-Spine: GENERAL: Yes trachea midline Chest: CHEST: Yes Symmetrical chest wall rise Resp: COMMON NORMALS: normal respiratory effort, No use of accessory muscles and clear to auscultation bilaterally AUSCULTATION: clear to auscultation bilaterally Cardio: COMMON NORMALS: regular rate and regular rhythm RATE: regular rate RHYTHM: regular rhythm Extremity: COMMON NORMALS: capillary refill normal and no pedal edema Neuro: ZHOU COMA SCALE: document GCS findings Epworth coma scale eye opening: Spontaneous Epworth coma scale verbal response: Orientated Zhou coma scale motor response: Obey commands Zhou coma scale total score: 15 Course Vital Signs: Vital signs: Vital Signs Temperature 98.9 F 11/06/21 17:35 Pulse Rate 74 07/01/22 23:32 Respiratory Rate 18 11/06/21 23:32 Blood Pressure 127/74 11/06/21 23:32 Pulse Oximetry 96 11/06/21 23:32 MDM - Dizziness Medical Decision Making Patient has had hypotension for the last couple of days. Blood pressure is currently normalized. 137/68. Heart rate is paced at 70. Saturations 96% on room air, respirations 18. Her hemoglobin is 12, white blood cell count is 13. Her creatinine is 1.4, with BUN of 47, significantly elevated from prior. She appears to be on 40 of furosemide twice daily, and suspect this is the cause of the prerenal azotemia. We will have her go down to 40 mg once daily for the next 3 days, and get her BMP rechecked at her scheduled cardiology appointment on Tuesday. She will keep track of her blood pressures as she has been doing. Lab Data : 11/06/21 18:30 11/06/21 18:30 Radiology Impressions Chest X-Ray 11/06/21 18: IMPRESSION: No acute findings. Head CT 11/06/21 18:29 IMPRESSION: No acute finding. Laboratory Results WBC 12.8 10^3/uL (4.0-10.0) H 11/06/21 18:30 RBC 3.67 10^6/uL (4.1-5.3) L 11/06/21 18:30 Hgb 11.8 g/dL (11.5-15.3) 11/06/21 18:30 Hct 36.5 % (37.0-47.0) L 11/06/21 18:30 MCV 99.5 fl (81-99) H 11/06/21 18:30 MCH 32.2 pg (28.0-34.0) 11/06/21 18:30 MCHC 32.3 g/dL (30.0-36.0) 11/06/21 18: RDW 13.7 % (12.1-15.1) 11/06/21 18:30 Plt Count 221 10^3/cmm (130-400) 11/06/21 18:30 MPV 10.3 fL (7.4-10.4) 11/06/21 18: Neut % (Auto) 83.4 % 11/06/21 18:30 Lymph % (Auto) 10.0 % 11/06/21 18:30 [place] % (Auto) 5.1 % 11/06/21 18:30 Eos % (Auto) 0.7 % 11/06/21 18:30 Baso % (Auto) 0.3 % 11/06/21 18:30 Neut # (Auto) 10.69 10^3/uL (1.8-7.7) H 11/06/21 18:30 Lymph # (Auto) 1.3 10^3/uL (0.8-4.8) 11/06/21 18:30 [place] # (Auto) 0.7 10^3/uL (0.2-0.9) 11/06/21 18:30 Eos # (Auto) 0.1 10^3/uL (0.0-0.8) 11/06/21 18: Baso # (Auto) 0.0 10^3/uL (0.0-0.1) 11/06/21 18:30 Nucleated RBC % (auto) 0 % 11/06/21 18: Nucleated RBCs # 0.0 /100WBC 11/06/21 18:30 PT 14.30 SECONDS (12.1-14.9) 11/06/21 18: INR 1.08 (0.8-1.2) 11/06/21 18:30 APTT 29.1 SECONDS (23.9-36.7) 11/06/21 18:30 Sodium 138 mmol/L (136-145) 11/06/21 18:30 Potassium 4.2 mmol/L (3.5-5.1) 11/06/21 18:30 Chloride 100 mmol/L (98-107) 11/06/21 18:30 Carbon Dioxide 25 mmol/L (22-29) 11/06/21 18:30 Anion Gap 17.2 (5-19) 11/06/21 18:30 BUN 47 mg/dL (8-23) H 11/06/21 18:30 Creatinine 1.4 mg/dL (0.5-0.9) H 11/06/21 18:30 GFR Calculation 37.3 mL/min (90-130) L 11/06/21 18: Glucose 114 mg/dL (65-115) 11/06/21 18:30 Calculated Osmolality 299 mOsm/kg (285-295) H 11/06/21 18:30 Calcium 9.0 mg/dL (8.5-10.5) 11/06/21 18:30 Magnesium 1.6 mg/dL (1.7-2.3) L 11/06/21 18:30 Total Bilirubin 0.2 mg/dL (0.15-1.2) 11/06/21 18:30 AST 22 U/L (0-32) 11/06/21 18:30 ALT 13 U/L (0-33) 11/06/21 18:30 Alkaline Phosphatase 168 IU/L (35-105) H 11/06/21 18:30 NT-Pro-B Natriuret Pep 1398 pg/mL (0-125) H 11/06/21 18:30 Total Protein 7.1 g/dL (6.6-8.7) 11/06/21 18:30 Albumin 4.2 g/dL (3.5-5.2) 11/06/21 18:30 Globulin 2.9 g/dL (1.3-4.6) 11/06/21 18:30 Urine Color Yellow (Yellow) 11/06/21 20:15 Urine Appearance Clear (CLEAR) 11/06/21 20:15 Urine pH 5 (5-7) 11/06/21 20:15 Ur Specific [place] 1.015 (1.005-1.030) 11/06/21 20:15 Urine Protein Neg (Negative) 11/06/21 20:15 Urine Glucose (UA) Norm (Normal) 11/06/21 20:15 Urine Ketones Negative (Negative) 11/06/21 20:15 Urine Blood Neg (Negative) 11/06/21 20:15 Urine Nitrate Negative (Negative) 11/06/21 20:15 Urine Bilirubin Neg (Negative) 11/06/21 20:15 Urine Urobilinogen Norm mg/dL (Negative) 11/06/21 20:15 Ur Leukocyte Esterase Negative (Negative) 11/06/21 20:15 Discharge Plan Discharge Patient Disposition: Home Clinical Impression: Acute kidney injury, Acute dehydration Condition: Stable Prescriptions: No Action colchicine 0.6 mg tablet See Rx Instructions PO .COMPLEX Qty: 15 3RF Rx Instructions: take 1 tab 3 times a week on Mon, Wed and Tuesday.. pt instructed to stop if gets diarrhea. PO; prednisone 5 mg tablet 5 mg PO DAILY PRN (Reason: prn joint pain flare) Qty: 30 1RF omega-3 fatty acids [Fish Oil Concentrate] 1,000 mg capsule 1,000 mg PO DAILY 0RF glucosamine-chondroitin 900 mg tablet 1 mg PO DAILY 0RF acetaminophen [Tylenol Arthritis Pain] 650 mg tablet extended release 650 mg PO Q12H 0RF sertraline 100 mg tablet 100 mg PO Q24H 90 Days Qty: 90 3RF nitroglycerin [Nitrostat] 0.4 mg tablet, sublingual 0.4 mg SUBLINGUAL Q5M PRN (Reason: chest pain) Qty: 25 3RF multivitamin Tablet 1 tab PO DAILY 0RF Tart Alonso Extract 1,000 mg capsule 1,000 mg PO DAILY 0RF magnesium chloride 64 mg tablet extended release 64 mg PO BID 0RF Hold Instructions: pcp put on hold due to diarrhea pregabalin [Lyrica] 75 mg capsule 75 mg PO BID Qty: 60 3RF nystatin 100,000 unit/mL suspension 3 ml buccal QID 7 Days Qty: 84 0RF Rx Instructions: administer 1/2 of dose in each side of the mouth lisinopril 20 mg tablet 20 mg PO DAILY Qty: 90 1RF metoprolol tartrate 25 mg tablet 25 mg PO BID Qty: 180 1RF Rx Instructions: TAKE 1 TABLET BY MOUTH TWICE DAILY isosorbide mononitrate 30 mg tablet extended release 24 hr 30 mg PO .qhs Qty: 90 1RF furosemide 40 mg tablet 40 mg PO BID Qty: 180 3RF ferrous sulfate [Iron (ferrous sulfate)] 325 mg (65 mg iron) tablet 325 mg PO DAILY Qty: 90 1RF Xarelto 15 mg tablet 15 mg PO DAILY Qty: 90 3RF clopidogrel 75 mg tablet 75 mg PO DAILY Qty: 90 3RF pantoprazole 40 mg tablet,delayed release (DR/EC) See Rx Instructions .ROUTE .COMPLEX Qty: 180 0RF Dose Instruction: TAKE 1 TABLET BY MOUTH TWICE DAILY Rx Instructions: TAKE 1 TABLET BY MOUTH TWICE DAILY allopurinol 100 mg tablet 400 mg PO DAILY Qty: 120 5RF Rx Instructions: TAKE 4 TABLETS BY MOUTH DAILY sertraline 100 mg tablet 100 mg PO Q24H 90 Days Qty: 90 2RF potassium chloride 10 mEq capsule, extended release See Rx Instructions .ROUTE .COMPLEX Qty: 90 0RF Dose Instruction: TAKE 1 CAPSULE BY MOUTH EVERY DAY Rx Instructions: TAKE 1 CAPSULE BY MOUTH EVERY DAY isosorbide mononitrate 60 mg tablet extended release 24 hr 60 mg PO DAILY Qty: 90 3RF atorvastatin 40 mg tablet 40 mg PO DAILY 0RF Discharge Orders: Discharge ED (Routine); Ordered 11/06/21 Ordered By: Cristhian Caldera Referrals: Derek Dowd DO [Primary Care Provider] - Patient Instructions: Dehydration (ED), Acute Kidney Injury (DC) Activity Restrictions/Additional Instructions: Decrease your furosemide dosage from 40 mg twice a day, to 40 mg once a day for the next 3 days. You should have your kidney function rechecked at your cardiology appointment, or otherwise early next week. Consider checking cortisol levels as well, as this may be a cause of morning low blood pressures. Return for shortness of breath, worsening dizziness, weakness, chest discomfort, or any other concerning symptoms. Coding Level of Care Code ED Gasoline Catalyst Operator for Dario Guzman
[2021-11-06 19:02] LABS: Basophils % 0.3 %; Eosinophils # 0.1 10^3/uL (0.0-0.8); Eosinophils % 0.7 %; Hematocrit 36.5 % (37.0-47.0); Hemoglobin 11.8 g/dL (11.5-15.3); Lymphocytes # 1.3 10^3/uL (0.8-4.8); Mean Corpuscular HGB Conc 32.3 g/dL (30.0-36.0); Mean Corpuscular Hemoglobin 32.2 pg (28.0-34.0); Mean Corpuscular Volume 99.5 fl (81-99); Mean Platelet Volume 10.3 fL (7.4-10.4); Monocytes # 0.7 10^3/uL (0.2-0.9); Monocytes % 5.1 %; Neutrophils # 10.69 10^3/uL (1.8-7.7); Neutrophils % 83.4 %; Nucleated Red Blood Cells % 0 %; Platelet Count 221 10^3/cmm (130-400); Red Blood Count 3.67 10^6/uL (4.1-5.3); Red Cell Distribution Width 13.7 % (12.1-15.1); White Blood Count 12.8 10^3/uL (4.0-10.0)
[2021-11-06 19:12] VITALS: BP 101/57; BP 111/60; BP 112/69; PULSE 73; PULSE 75; PULSE 76
[2021-11-06 19:14] LABS: INR 1.08 (0.8-1.2)
[2021-11-06 19:15] LABS: Partial Thromboplastin Time 29.1 SECONDS (23.9-36.7)
[2021-11-06 19:30] LABS: Alanine Aminotransferase 13 U/L (0-33); Albumin Level 4.2 g/dL (3.5-5.2); Alkaline Phosphatase 168 IU/L (35-105); Anion Gap 17.2 (5-19); Aspartate Amino Transferase 22 U/L (0-32); Blood Urea Nitrogen 47 mg/dL (8-23); Carbon Dioxide 25 mmol/L (22-29); Chloride 100 mmol/L (98-107); Globulin 2.9 g/dL (1.3-4.6); Glomerular Filtration Rate 37.3 mL/min (90-130); Glucose 114 mg/dL (65-115); Magnesium 1.6 mg/dL (1.7-2.3); NT Pro B Type Natriuretic Pept 1398 pg/mL (0-125); Osmolality Calculated 299 mOsm/kg (285-295); Potassium 4.2 mmol/L (3.5-5.1); Sodium 138 mmol/L (136-145); Total Bilirubin 0.2 mg/dL (0.15-1.2); Total Protein 7.1 g/dL (6.6-8.7)
[2021-11-06 20:22] LABS: Add Urine Microscopic? NO; Charge for UA Resulting for Rev
[2021-11-06 20:28] LABS: Bilirubin Urine Neg (Negative); Blood Urine Neg (Negative); Glucose Urine UA Norm (Normal); Ketones Urine Negative (Negative); Leukocyte Esterase Urine Negative (Negative); Nitrate Urine Negative (Negative); Protein Urine Neg (Negative); Specific Gravity, Urine 1.015 (1.005-1.030); Urine Appearance Clear (CLEAR); Urine Color Yellow (Yellow); Urobilinogen Urine Norm (Negative); pH Urine 5 (5-7)
[2021-11-06] MEDS: sodium chloride 0.9% 1,000 ML 999 ML IV (21:00)
[2021-11-06 23:32] VITALS: BP 127/74; PULSE 74; RESP 18; O2SAT 96
== END 2021-11-06 23:34 | disposition home or self-care (01) ==
PROVIDERS: Emergency Provider Emergency Medicine; PCP Family Medicine
DX: N17.9 Acute kidney failure, unspecified (principal); E86.0 Dehydration; Z79.02 Long term (current) use of antithrombotics/antiplatelets; I13.0 Hypertensive heart and chronic kidney disease with heart failure and stage 1 through stage 4 chronic kidney disease, or unspecified chronic kidney disease; N18.30 Chronic kidney disease, stage 3 unspecified; I50.9 Heart failure, unspecified; E78.5 Hyperlipidemia, unspecified; Z95.1 Presence of aortocoronary bypass graft; Z95.810 Presence of automatic (implantable) cardiac 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
CPT/HCPCS: 70450; 71045; 80053; 81003; 83735; 83880; 85025; 85610; 85730; 93005; 96360; 99284; J7030

== ENCOUNTER → 2021-11-16 09:00 | Outpatient (BNVA) | payer BC, MEDICARE, SELFPAY | PROVIDERS: PCP Family Medicine; Visit Provider Nurse Practitioner Family | DX: I13.0 Hypertensive heart and chronic kidney disease with heart failure and stage 1 through stage 4 chronic kidney disease, or unspecified chronic kidney disease (principal); N18.30 Chronic kidney disease, stage 3 unspecified; I50.9 Heart failure, unspecified; Z95.810 Presence of automatic (implantable) cardiac 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; I48.91 Unspecified atrial fibrillation; Z79.01 Long term (current) use of anticoagulants | CPT/HCPCS: 36415; 80048; 99214 ==

== ENCOUNTER 2021-12-22 12:27 | Outpatient (CLI) | payer BC, MEDICARE, SELFPAY ==
--- NOTE | 2021-12-22 12:30 | CTR_ITS ---
PROCEDURE INFORMATION: Exam: CT Head Without Contrast Exam date and time: 12/22/2021 12:46 PM Age: 71 years old Clinical indication: Altered mental status/memory loss and dizziness; Patient HX: --dizziness x 2 months, AMS x 3 wks; Additional info: Acute mental status change TECHNIQUE: Imaging protocol: Computed tomography of the head without contrast. Axial, coronal and sagittal reformatted images were created and reviewed. Radiation optimization: All CT scans at this facility use at least one of these dose optimization techniques: automated exposure control; mA and/or kV adjustment per patient size (includes targeted exams where dose is matched to clinical indication); or iterative reconstruction. COMPARISON: CT head wo con* [id number] 11/06/2021 7:56 PM RADIATION DOSE METRICS: Total DLP (mGy-cm): 957.48 FINDINGS: Brain: Patchy areas of hypoattenuation in the periventricular and subcortical white matter, consistent with chronic small vessel ischemic disease. No CT evidence of acute intracranial hemorrhage or acute territorial infarction. No significant mass effect or midline shift. Basal cisterns patent. Cerebral ventricles: Prominence of the cortical sulci, cisterns and ventricular system, consistent with cerebral and cerebellar volume loss. Paranasal sinuses: Unremarkable. No fluid levels. Mastoid air cells: Grossly unremarkable. Bones/joints: No acute osseous abnormality. Soft tissues: Grossly unremarkable. Vasculature: Calcific atherosclerotic disease in the cavernous internal carotid arteries, as well as the vertebro-basilar system. CT/CT head wo con* [id number]: 1[address] No CT evidence of acute intracranial pathology. 2. Additional findings, as above.
== END 2021-12-22 12:28 | disposition home or self-care (01) ==
LOC: RAD 12:28
PROVIDERS: PCP Family Medicine; Visit Provider Family Medicine
DX: R41.82 Altered mental status, unspecified (principal); R51.9 Headache, unspecified; G89.29 Other chronic pain
CPT/HCPCS: 36415; 70450; 80053; 81000; 83735; 84439; 84443; 85025; 85651; 86140

== ENCOUNTER → 2022-01-01 08:16 | Outpatient (BNVA) | payer BC, MEDICARE, SELFPAY | PROVIDERS: PCP Family Medicine; Referring Provider Family Medicine; Visit Provider Nurse Practitioner | DX: R41.89 Other symptoms and signs involving cognitive functions and awareness (principal); R26.89 Other abnormalities of gait and mobility; I67.2 Cerebral atherosclerosis; R51.9 Headache, unspecified; G89.29 Other chronic pain | CPT/HCPCS: 99214 ==

== ENCOUNTER 2022-02-07 12:30 | Inpatient (IN) | payer BC, MEDICARE, SELFPAY ==
[2022-02-07] VITALS (14 sets, daily range): BP systolic 112–149; BP diastolic 67–81; PULSE 69–86; RESP 15–32; TEMP 36.8; O2SAT 92–98; BMI 31.7
--- NOTE | 2022-02-07 12:54 | ECG_ITS ---
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 Measurements Intervals [place] Rate: 72 P: [place]: QRS: -70 QRSD: 168 T: 100 QT: 455 QTc: 500 Interpretive Statements ELECTRONIC VENTRICULAR PACEMAKER Compared to ECG 11/06/2021 18:51:59 No significant changes Electronically Signed On 02-07-2022 22:00:16 CDT by Kel Molina M.D. [id number]
--- NOTE | 2022-02-07 12:56 | XRR_ITS ---
PROCEDURE INFORMATION: Exam: XR Chest Exam date and time: 02/07/2022 1:16 PM Age: 71 years old Clinical indication: Cough and wheezing; Additional info: Dyspnea/cough TECHNIQUE: Imaging protocol: Radiologic exam of the chest. Views: 1 view. COMPARISON: CR (CHEST, ) 11/06/2021 6:45 PM FINDINGS: Tubes, catheters and devices: Stable pacemaker. Lungs: Unremarkable. No consolidation. Pleural spaces: Unremarkable. No pleural effusion. No pneumothorax. Heart/Mediastinum: Stable cardiomegaly. Bones/joints: Stable sternal sutures. XR/XR chest 1V portable [id number] IMPRESSION: No acute findings.
--- NOTE | 2022-02-07 13:37 | ED_ITS ---
HPI - Weakness General: Chief complaint: ER Hold Stated complaint: Weak, shakes and BP very low Time Seen by Provider: 02/07/22 12:54 Source: patient Mode of arrival: ambulatory History of Present Illness: 71-year-old female presents emergency room feeling weak. She states she has felt weak for last couple months the last several days she has had increasing difficulty breathing she fell in the bathroom last night. Is no evidence of having hit her head. She does states she has some pressure in her head and has not been feeling well with mild headaches as well. She also has problems with acid reflux. On initially on arrival she is hypoxic and does require oxygen supplementation. She denies any specific chest pains cough is been moderately productive. She denies any dysuria urgency or frequency. MD Complaint: generalized weakness Onset (ago): day(s) Duration: intermittent and progressively worsening Location: generalized Migration: none Severity: mild Relieving factors: none Exacerbating factors: none Associated symptoms: Reports decreased appetite, headache(s), myalgias, nausea and short of breath; Denies chest pain, chills, confusion, melena, diaphoresis, dysuria, easy bruising, fever(s), rash, syncope or vomiting Review of Systems Const: Reports: fatigue and malaise; Denies: fever(s), chills or diaphoresis ENMT: Denies: throat pain, ear or mastoid pain, nasal discharge or nasal congestion Card: Denies: chest pain, palpitations, irregular heart rhythm or syncope Resp: Reports: dyspnea and wheezing; Denies: productive cough or non-productive cough GI: Reports: nausea, diarrhea and bloating; Denies: abdominal pain, vomiting, GI cramping or melena : Denies: flank pain, difficulty voiding, dysuria, urinary frequency or urinary urgency Skin/Breast: Denies: rash or pruritus Neuro: Reports: headache(s); Denies: confusion [place]/Lymph: Denies: easy bruising PFSH ED PFSH: Medical History Anemia Anticoagulant long-term use Atrial fibrillation Balance disorder Cardiac 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 therapy 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 (GLOBAL MARKETING MANAGER-D) in place Cardiomyopathy CHF (congestive heart failure) Chronic renal insufficiency, stage II (mild) Chronic tophaceous gout of both hands CKD (chronic kidney disease) stage 3, GFR 30-59 ml/min Cognitive impairment GERD (gastroesophageal reflux disease) Gout High risk medication use High risk medication use HTN (hypertension) Hyperlipidemia Intracranial atherosclerosis Left bundle branch block MRSA carrier BASIA (obstructive sleep apnea) PAD (peripheral artery disease) Recurrent UTI Renal artery stenosis Right internal carotid artery aneurysm Sleep apnea Vertebral artery stenosis Vertebrobasilar insufficiency Surgical History H/O cardiac radiofrequency ablation S/P angioplasty with stent S/P appendectomy S/P CABG (coronary artery bypass graft) S/P section S/P hysterectomy S/P ICD (internal cardiac 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) procedure Status post aorto-coronary artery bypass graft Status post tubal ligation Family History Father , AT AGE 65 Hyperlipidemia CAD (coronary artery disease) Hypertension Rheumatoid arthritis Mother , AT AGE 65 Hyperlipidemia CAD (coronary artery disease) Hypertension Diabetes Sister Hyperlipidemia CAD (coronary artery disease) Hypertension Diabetes Other Cancer Social History Smoking and tobacco status: never smoked Second hand smoke exposure: No Alcohol intake: never Marital status: Current occupational status: retired History of recent travel: No Female Reproductive History: Spontaneous abortions: No Physical Exam Const: COMMON NORMALS: no acute distress GENERAL APPEARANCE: cooperative and comfortable ORIENTATION/CONSCIOUSNESS: Yes awake, Yes oriented to person, Yes oriented to place and Yes oriented to time HENMT: COMMON NORMALS: normocephalic and atraumatic HEAD & SCALP: normoceph alic and atraumatic Resp: COMMON NORMALS: normal respiratory effort, No retractions and No use of accessory muscles AUSCULTATION: rhonchi and wheezes Cardio: COMMON NORMALS: regular rate, regular rhythm and No murmurs present (Cardio) RATE: regular rate RHYTHM: regular rhythm GI: COMMON NORMALS: Soft to palpation and No hepatosplenomegaly present AUSCULTATION: Yes normoactive bowel sounds PALPATION: Yes Soft to palpation, No Tenderness to palpation present (GI), No Guarding due to palpation present (GI) and Yes No hepatosplenomegaly present Extremity: COMMON NORMALS: normal to inspection, capillary refill normal, no clubbing, cyanosis or edema, no calf tenderness and no pedal edema Neuro: SENSORIUM/ORIENTATION: Yes oriented to person, Yes oriented to place and Yes oriented to time Skin: COMMON NORMALS: no rashes or lesions noted GENERAL SKIN EXAM: no rashes or lesions noted Course Vital Signs: Vital signs: Vital Signs Temperature 98.2 F 02/07/22 12:39 Pulse Rate 70 02/07/22 17:11 Respiratory Rate 17 02/07/22 17:01 Blood Pressure 124/74 02/07/22 13:30 Pulse Oximetry 95 02/07/22 17:01 Oxygen Delivery Me thod 02/07/22 17:01 Oxygen Flow Rate 2 02/07/22 17:01 MDM - Weakness Medical Decision Making COVID is negative I believe the majority of this is exacerbation of COPD. She has a slight bump in her BNP however previous Lexiscan sestamibi stress test showed a normal ventriculogram. We will admit patient steroids nebulizers. She also has a mild acute kidney injury she has been given fluids discussed with hospitalist orders written Medical Records I reviewed the patient's medical records. Lab Data I reviewed the patient's lab results. : 02/07/22 13:33 02/07/22 13:33 Radiology Impressions Chest X-Ray 02/07/22 12:56 IMPRESSION: No acute findings. Chest CTA 02/07/22 14:52 IMPRESSION: 1. Cardiomegaly. 2. Multivessel atherosclerotic disease which involves the coronary arteries. 3. No evidence for pulmonary embolus. Head CT 02/07/22 17:02 IMPRESSION: There are senescent changes of the brain as described above. No evidence for large acute ischemic infarction or acute intracranial injury. Laboratory Results WBC 5.4 10^3/uL (4.0-10.0) 02/07/22 13:33 RBC 4.26 10^6/uL (4.1-5.3) 02/07/22 13:33 Hgb 13.6 g/dL (11.5-15.3) 02/07/22 13:33 Hct 44.1 % (37.0-47.0) 02/07/22 13:33 MCV 103.5 fl (81-99) H 02/07/22 13:33 MCH 31.9 pg (28.0-34.0) 02/07/22 13:33 MCHC 30.8 g/dL (30.0-36.0) 02/07/22 13:33 RDW 15.6 % (12.1-15.1) H 02/07/22 13:33 Plt Count 158 10^3/cmm (130-400) 02/07/22 13:33 MPV 10.7 fL (7.4-10.4) H 02/07/22 13:33 Neut % (Auto) 65.9 % 02/07/22 13:33 Lymph % (Auto) 22.8 % 02/07/22 13:33 [place] % (Auto) 10.5 % 02/07/22 13:33 Eos % (Auto) 0.0 % 02/07/22 13:33 Baso % (Auto) 0.4 % 02/07/22 13:33 Neut # (Auto) 3.53 10^3/uL (1.8-7.7) 02/07/22 13:33 Lymph # (Auto) 1.2 10^3/uL (0.8-4.8) 02/07/22 13:33 [place] # (Auto) 0.6 10^3/uL (0.2-0.9) 02/07/22 13:33 Eos # (Auto) 0.0 10^3/uL (0.0-0.8) 02/07/22 13:33 Baso # (Auto) 0.0 10^3/uL (0.0-0.1) 02/07/22 13:33 Nucleated RBC % (auto) 0 % 02/07/22 13:33 Nucleated RBCs # 0.0 /100WBC 02/07/22 13:33 Sodium 139 mmol/L (136-145) 02/07/22 13:33 Potassium 3.9 mmol/L (3.5-5.1) 02/07/22 13:33 Chloride 101 mmol/L (98-107) 02/07/22 13:33 Carbon Dioxide 23 mmol/L (22-29) 02/07/22 13:33 Anion Gap 18.9 (5-19) 02/07/22 13:33 BUN 81 mg/dL (8-23) H D 02/07/22 13:33 Creatinine 1.6 mg/dL (0.5-0.9) H 02/07/22 13:33 GFR Calculation 32.0 mL/min (90-130) L 02/07/22 13:33 Glucose 108 mg/dL (65-115) 02/07/22 13:33 Calculated Osmolality 313 mOsm/kg (285-295) H 02/07/22 13:33 Calcium 9.3 mg/dL (8.5-10.5) 02/07/22 13:33 Total Bilirubin 0.5 mg/dL (0.15-1.2) 02/07/22 13:33 AST 33 U/L (0-32) H 02/07/22 13:33 ALT 15 U/L (0-33) 02/07/22 13:33 Alkaline Phosphatase 145 U/L (35-105) H 02/07/22 13:33 Troponin T Baseline 29 ng/L (0-10) H 02/07/22 13:33 Troponin T 120 Minute 29.51 ng/L (0-10) H 02/07/22 15:40 Delta Troponin T 0.51 ABS# (0-10) 02/07/22 15:40 NT-Pro-B Natriuret Pep 1620 pg/mL (0-125) H 02/07/22 13:33 Total Protein 7.4 g/dL (6.6-8.7) 02/07/22 13:33 Albumin 4.1 g/dL (3.5-5.2) 02/07/22 13:33 Globulin 3.3 g/dL (1.3-4.6) 02/07/22 13:33 Urine Color Yellow (Yellow) 02/07/22 14:39 Urine Appearance Clear (CLEAR) 02/07/22 14:39 Urine pH 5.0 (5-7) 02/07/22 14:39 Ur Specific [place] 1.010 (1.005-1.030) 02/07/22 14:39 Urine Protein Negative (Negative) 02/07/22 14:39 Urine Glucose (UA) Negative (Normal) 02/07/22 14:39 Urine Ketones Negative (Negative) 02/07/22 14:39 Urine Blood Negative (Negative) 02/07/22 14:39 Urine Nitrate Positive 02/07/22 14:39 Urine Bilirubin Negative (Negative) 02/07/22 14:39 Urine Urobilinogen 0.2 mg/dL (Negative) 02/07/22 14:39 Ur Leukocyte Esterase Negative (Negative) 02/07/22 14:39 Urine RBC None /hpf (0-2) 02/07/22 14:39 Urine WBC 0-4 /hpf (0-5) H 02/07/22 14:39 Ur Squamous Epith Cells None /hpf (0-5) 02/07/22 14:39 Amorphous Sediment Not Reportable 02/07/22 14:39 Urine Bacteria 2+ /hpf (NONE) H 02/07/22 14:39 Coronavirus 229E (PCR) Not detected (NOT DETECT) 02/07/22 14:19 Parainfluenza 1 (PCR) Detected (NOT DETECT) A 02/07/22 16:49 Parainfluenza 2 (PCR) Not detected (NOT DETECT) 02/07/22 16:49 Parainfluenza 3 (PCR) Not detected (NOT DETECT) 02/07/22 16:49 Parainfluenza 4 (PCR) Not detected (NOT DETECT) 02/07/22 16:49 SARS-CoV-2 (PCR) Not detected (NOT DETECT) 02/07/22 14:19 Discharge Plan Discharge Patient Disposition: Admitted As Inpatient Admit Provider: Ying Forman Clinical Impression: Acute exacerbation of chronic obstructive pulmonary disease, Chronic renal insufficiency, stage II (mild), Congestive heart failure, BERNADETTE (acute kidney injury) Condition: Stable Coding Level of Care Code ED Security Officer for Tracyg Fwd Exam Detailed
[2022-02-07 13:42] LABS: Basophils % 0.4 %; Hematocrit 44.1 % (37.0-47.0); Hemoglobin 13.6 g/dL (11.5-15.3); Lymphocytes # 1.2 10^3/uL (0.8-4.8); Lymphocytes % 22.8 %; Mean Corpuscular HGB Conc 30.8 g/dL (30.0-36.0); Mean Corpuscular Hemoglobin 31.9 pg (28.0-34.0); Mean Corpuscular Volume 103.5 fl (81-99); Mean Platelet Volume 10.7 fL (7.4-10.4); Monocytes # 0.6 10^3/uL (0.2-0.9); Monocytes % 10.5 %; Neutrophils # 3.53 10^3/uL (1.8-7.7); Neutrophils % 65.9 %; Nucleated Red Blood Cells % 0 %; Platelet Count 158 10^3/cmm (130-400); Red Blood Count 4.26 10^6/uL (4.1-5.3); Red Cell Distribution Width 15.6 % (12.1-15.1); White Blood Count 5.4 10^3/uL (4.0-10.0)
[2022-02-07 14:08] LABS: Alanine Aminotransferase 15 U/L (0-33); Albumin Level 4.1 g/dL (3.5-5.2); Alkaline Phosphatase 145 U/L (35-105); Calcium 9.3 mg/dL (8.5-10.5); Carbon Dioxide 23 mmol/L (22-29); Chloride 101 mmol/L (98-107); Globulin 3.3 g/dL (1.3-4.6); Glucose 108 mg/dL (65-115); Osmolality Calculated 313 mOsm/kg (285-295); Sodium 139 mmol/L (136-145); Total Bilirubin 0.5 mg/dL (0.15-1.2); Total Protein 7.4 g/dL (6.6-8.7)
[2022-02-07 14:14] LABS: Anion Gap 18.9 (5-19); Aspartate Amino Transferase 33 U/L (0-32); Potassium 3.9 mmol/L (3.5-5.1)
[2022-02-07 14:19] LABS: Blood Urea Nitrogen 81 mg/dL (8-23)
[2022-02-07 14:29] LABS: Slide Review Slide Review Perform
--- NOTE | 2022-02-07 14:43 | PC.NURSE ---
PT ON 2L NC UPON ARRIVAL TO ED. NURSE CHARTED ROOM AIR IN ERROR. UNABLE TO EDIT.
--- NOTE | 2022-02-07 14:52 | CTR_ITS ---
PROCEDURE INFORMATION: Exam: CTA Chest With Contrast Exam date and time: 02/07/2022 3:14 PM Age: 71 years old Clinical indication: Dyspnea; Prior surgery TECHNIQUE: Imaging protocol: Computed tomographic angiography of the chest with contrast. 3D rendering (Not supervised by radiologist): MIP and/or 3D reconstructed images were created by the technologist. Radiation optimization: All CT scans at this facility use at least one of these dose optimization techniques: automated exposure control; mA and/or kV adjustment per patient size (includes targeted exams where dose is matched to clinical indication); or iterative reconstruction. Contrast material: OMNIPAQUE 350; Contrast volume: 95 ml; Contrast route: INTRAVENOUS (IV); COMPARISON: CT chest w con* [id number] 05/14/2019 10:31 AM RADIATION DOSE METRICS: Total DLP (mGy-cm): 467.98 FINDINGS: Tubes, catheters and devices: Pacemaker with leads. Pulmonary arteries: Normal. No pulmonary emboli. Aorta: Unremarkable. No aortic aneurysm. No aortic dissection. Renal arteries: There is a stent in the proximal right renal artery, partially visualized. Lungs: Unremarkable. No consolidation. No masses. Pleural spaces: Unremarkable. No pneumothorax. No pleural effusion. Heart: Cardiomegaly. Multivessel atherosclerotic disease which involves the coronary arteries. Lymph nodes: Unremarkable. No enlarged lymph nodes. Diaphragm: Small hiatal hernia. Kidneys and ureters: Right renal cortical thinning. Bones/joints: There are post sternotomy changes and postoperative changes in the anterior mediastinum. Soft tissues: Unremarkable. CT/CT angio chest PE protcl [id number] IMPRESSION: 1. Cardiomegaly. 2. Multivessel atherosclerotic disease which involves the coronary arteries. 3. No evidence for pulmonary embolus.
[2022-02-07 15:18] LABS: Bilirubin Urine Negative (Negative); Blood Urine Negative (Negative); Glucose Urine UA Negative (Normal); Ketones Urine Negative (Negative); Leukocyte Esterase Urine Negative (Negative); Nitrate Urine Positive; Protein Urine Negative (Negative); Urine Appearance Clear (CLEAR); Urine Color Yellow (Yellow); Urobilinogen Urine 0.2 mg/dL (Negative)
[2022-02-07 15:18] LABS: Troponin(5th) Baseline 29 ng/L (0-10)
[2022-02-07] MEDS: iohexol 350 mg/mL 100 mL Btl IV (15:26)
--- NOTE | 2022-02-07 15:26 | ECG_ITS ---
[facility] Test Date: 2022-02-07 Pat Name: Essie Alejandre Department: Room: Gender: Female Manager Managing: : 1950 Requested By: Vincent Peña Order Number: [id number] Jj MD: Kel Molina M.D. Measurements Intervals [place] Rate: 81 P: AK: QRS: 127 QRSD: 178 T: -49 QT: 451 QTc: 525 Interpretive Statements ELECTRONIC VENTRICULAR PACEMAKER -- CONTOUR ANALYSIS BASED ON INTRINSIC RHYTHM RIGHT AXIS DEVIATION [QRS AXIS > 100] RIGHT BUNDLE BRANCH BLOCK [120+ ms QRS DURATION, UPRIGHT V1, 40+ ms S IN I/aVL/V4/V5/V6] SEPTAL MYOCARDIAL INFARCTION , OF INDETERMINATE AGE [40+ ms Q WAVE IN V1/V2] ST DEVIATION AND MARKED T-WAVE ABNORMALITY, CONSIDER ANTERIOR ISCHEMIA [-0.5+ mV T-WAVE IN V3/V4] ST DEVIATION AND MARKED T-WAVE ABNORMALITY, CONSIDER INFERIOR ISCHEMIA [-0.5+ mV T-WAVE IN II/aVF] Compared to ECG 02/07/2022 12:59:18 Right-axis deviation now present Right bundle-branch block now present Myocardial infarct finding now present T-wave abnormality now present Possible ischemia now present Electronically Signed On 02-07-2022 21:59:42 CDT by Kel Molina M.D. [email or web address]/[id number]
[2022-02-07 15:28] LABS: Add Urine Microscopic? YES
[2022-02-07 15:29] LABS: Add Urine Culture? Yes; Bacteria Urine 2+ /hpf; WBC Urine 0-4 /hpf (0-5)
[2022-02-07] MEDS: dexamethasone 10 mg/mL INJ IVP (15:40)
[2022-02-07] MEDS: sodium chloride 0.9% 1,000 ML 999 ML IV (15:40)
[2022-02-07 16:08] LABS: NT Pro B Type Natriuretic Pept 1620 pg/mL (0-125)
[2022-02-07 16:11] LABS: Troponin 5 2HR 29.51 ng/L (0-10)
[2022-02-07 16:14] LABS: Troponin 5 2HR Delta 0.51 ABS# (0-10)
[2022-02-07 16:26] LABS: Adenovirus Not Detected (NOT DETECT); Chlamydia Pneumoniae Not Detected (NOT DETECT); Coronavirus 229E,HKU1,NL63,OC4 Not Detected (NOT DETECT); Human Metapneumovirus Not Detected (NOT DETECT); Human Rhinovirus/Enterovirus Not Detected (NOT DETECT); Influenza A Not Detected (NOT DETECT); Influenza A H1 Not Detected (NOT DETECT); Influenza A H1-2009 Not Detected (NOT DETECT); Influenza A H3 Not Detected (NOT DETECT); Influenza B Not Detected (NOT DETECT); Mycoplasma Pneumoniae Not Detected (NOT DETECT); Parainfluenza Virus Type 1 Detected (NOT DETECT); Parainfluenza Virus Type 2 Not Detected (NOT DETECT); Parainfluenza Virus Type 3 Not Detected (NOT DETECT); Parainfluenza Virus Type 4 Not Detected (NOT DETECT); Respiratory Syncytial Virus A Not Detected (NOT DETECT); Respiratory Syncytial Virus B Not Detected (NOT DETECT); SARS-COV-2 Not Detected (NOT DETECT)
--- NOTE | 2022-02-07 16:45 | PM.HP ---
Providers/Chief Complaint Primary Care Provider: Derek Dowd DO Chief Complaint: Weak, shakes and BP very low, SOB History of Present Illness Essie Alejandre is a 71 year old female She has extensive history of coronary disease with CABG history of A. fib, renal artery stenosis, chronic kidney disease ischemic cardiomyopathy mixed heart failure, left bundle branch block, sleep apnea, went to the EP and had a 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 placed when she failed ablation for her A. fib. 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 Patient is stating that she has been experience shortness of breath for 3 weeks at least, she has not noticed any fever or chest pain. She does not use oxygen at home at baseline. No recent fever, diarrhea, upper respite tract infection as per the patient. Diagnostic work-up in ER rule out PE, I have requested stat ABG as patient is showing asterixis with poor attention span. Clinically she looks fluid overloaded ABG revealed normal pH PCO2 41 mild hypoxia, she is requiring 2 L of oxygen Acute on chronic kidney disease creatinine 1.6 Troponin without significant delta BNP 1600 Signs of UTI COVID-negative In the ER she has received 1 L normal saline along with Decadron albuterol DuoNeb treatment I would prefer to give her Lasix at this time Review of Systems Const: Reports: chills, body aches and fatigue Eyes: Denies: change in vision ENMT: Denies: throat pain Card: Reports: dyspnea on exertion and orthopnea Resp: Reports: dyspnea GI: Denies: abdominal pain : Denies: flank pain Musc: Denies: neck pain Skin/Breast: Denies: rash Neuro: Reports: headache(s) Psych: Reports: anxiety Endo: Denies: polyuria Jerardo/Lymph: Denies: easy bruising All/Imm: Denies: urticaria Medications/Allergies Home Medications Medication Instructions Recorded Confirmed Last Taken Type omega-3 fatty acids 1,000 mg 1,000 mg PO DAILY 06/29/19 02/07/22 02/06/22 History capsule (Fish Oil Concentrate) acetaminophen 650 mg 650 mg PO Q12H PRN Pain 08/13/20 02/07/22 08/25/21 History tablet,extended release (Tylenol Arthritis Pain) multivitamin 1 tab PO DAILY 06/08/21 02/07/22 02/06/22 History sour alonso extract 1,000 mg 1,000 mg PO DAILY 06/23/21 02/07/22 02/06/22 History capsule (Tart Alonso Extract) colchicine 0.6 mg tablet See Rx Instructions PO .COMPLEX 07/28/21 02/07/22 08/25/21 Rx #15 tabs clopidogrel 75 mg tablet 75 mg PO DAILY #90 tabs 08/20/21 02/07/22 02/06/22 Rx atorvastatin 40 mg tablet 40 mg PO DAILY 08/26/21 02/07/22 02/06/22 History pantoprazole 40 mg tablet,delayed See Rx Instructions .Route 09/01/21 02/07/22 02/06/22 Rx release .COMPLEX #180 tabs allopurinol 100 mg tablet 400 mg PO DAILY #120 tabs 09/08/21 02/07/22 02/06/22 Rx sertraline 100 mg tablet 100 mg PO Q24H 3 months #90 tabs 09/08/21 02/07/22 02/06/22 Rx nitroglycerin 0.4 mg sublingual 0.4 mg sublingual Q5M PRN chest 09/11/21 02/07/22 Unknown Rx tablet (Nitrostat) pain #25 tabs isosorbide mononitrate 60 mg 60 mg PO DAILY #90 tabs 10/12/21 02/07/22 02/06/22 Rx tablet,extended release 24 hr pregabalin 75 mg capsule (Lyrica) 75 mg PO BID #60 caps 10/13/21 02/07/22 02/06/22 Rx lisinopril 20 mg tablet 20 mg PO DAILY #90 tabs 10/27/21 02/07/22 02/06/22 Rx metoprolol tartrate 25 mg tablet 25 mg PO BID #180 tabs 10/27/21 02/07/22 02/06/22 Rx aspirin 81 mg tablet,delayed 81 mg PO DAILY 11/16/21 02/07/22 02/06/22 History release (Adult Aspirin Regimen) furosemide 40 mg tablet 40 mg PO BID #180 tabs 11/26/21 02/07/22 02/06/22 Rx potassium chloride 10 mEq See Rx Instructions .Route 12/18/21 02/07/22 02/06/22 Rx capsule,extended release .COMPLEX #30 caps prednisone 5 mg tablet See Rx Instructions .Route 01/18/22 02/07/22 Unknown Rx .COMPLEX #30 tabs alprazolam 0.5 mg tablet 0.5 mg PO DAILY PRN Anxiety 02/07/22 02/07/22 Unknown History isosorbide mononitrate 30 mg 30 mg PO BEDTIME 02/07/22 02/07/22 02/06/22 History tablet,extended release 24 hr Allergies Allergy/AdvReac Type Severity Reaction Status Date / Time Sulfa (Sulfonamide Allergy hives Verified 01/01/22 08:01 Antibiotics) adhesive tape AdvReac Mild Unknown Verified 01/01/22 08:01 PFSH Acute PFSH: Medical History Anemia Anticoagulant long-term use Atrial fibrillation Balance disorder Cardiac 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 therapy 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 (RATTLE LEAK AND SQUEAK REPAIRER-D) in place Cardiomyopathy CHF (congestive heart failure) Chronic renal insufficiency, stage II (mild) Chronic tophaceous gout of both hands CKD (chronic kidney disease) stage 3, GFR 30-59 ml/min Cognitive impairment GERD (gastroesophageal reflux disease) Gout High risk medication use High risk medication use HTN (hypertension) Hyperlipidemia Intracranial atherosclerosis Left bundle branch block MRSA carrier BASIA (obstructive sleep apnea) PAD (peripheral artery disease) Recurrent UTI Renal artery stenosis Right internal carotid artery aneurysm Sleep apnea Vertebral artery stenosis Vertebrobasilar insufficiency Surgical History H/O cardiac radiofrequency ablation S/P angioplasty with stent S/P appendectomy S/P CABG (coronary artery bypass graft) S/P section S/P hysterectomy S/P ICD (internal cardiac 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) procedure Status post aorto-coronary artery bypass graft Status post tubal ligation Family History Father , AT AGE 65 Hyperlipidemia CAD (coronary artery disease) Hypertension Rheumatoid arthritis Mother , AT AGE 65 Hyperlipidemia CAD (coronary artery disease) Hypertension Diabetes Sister Hyperlipidemia CAD (coronary artery disease) Hypertension Diabetes Other Cancer Social History Smoking and tobacco status: never smoked Second hand smoke exposure: No Alcohol intake: never Marital status: Current occupational status: retired History of recent travel: No Female Reproductive History: Spontaneous abortions: No Vitals/I&O/Wt Last Vital Signs Temp 98.2 F 02/07/22 12:39 Pulse 84 02/07/22 14:42 Resp 32 H 02/07/22 14:42 BP 124/74 02/07/22 13:30 Pulse Ox 96 02/07/22 14:42 O2 Del Method 02/07/22 14:42 O2 Flow Rate 2 02/07/22 14:42 Weight last 48 hrs Weight 83.915 kg Physical Exam Narrative: elderly female who appears more than stated age Clinical signs of fluid overload Positive asterixis Awake and alert Able to tell me what mentioned HPI She was able to tell me her date of Nonfocal neuro exam Short attention span Very fatigued hematologic Bilateral breath sounds mild rhonchi S1, S2 variable Abdomen distended nontender No signs of cellulitis Patient appears very lethargic Data : 02/07/22 13:33 02/07/22 13:33 Micro: Microbiology 02/07/22 13:33 Blood Culture - Preliminary Blood SPECIMEN COLLECTED 02/07/22 13:33 Blood Culture - Preliminary Blood SPECIMEN COLLECTED A&P Assessment and plan (1) Congestive heart failure: (2) BERNADETTE (acute kidney injury): (3) Intracranial atherosclerosis: (4) Balance disorder: (5) Cognitive impairment: (6) Cardiac 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 therapy 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 (RATTLE LEAK AND SQUEAK REPAIRER-D) in place: (7) Left bundle branch block: (8) Vertebral artery stenosis: (9) Sleep apnea: (10) Gout: Qualifiers: Gout site: ankle Gout etiology: due to renal impairment Chronicity: chronic Laterality: unspecified laterality Presence of tophus: without tophus Qualified Code(s): 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, unspecified ankle and foot, without tophus (tophi) (11) Anemia: Qualifiers: Anemia type: iron deficiency Iron deficiency anemia type: inadequate dietary iron intake Qualified Code(s): D50.8 - Other iron deficiency anemias (12) Iron deficiency anemia: Qualifiers: Iron deficiency anemia type: inadequate dietary iron intake Qualified Code(s): D50.8 - Other iron deficiency anemias (13) Cardiomyopathy: Plan Acute combined CHF exacerbation Patient clinically is fluid overloaded I would not use IV fluids for now Discontinue IV fluids I will give her IV Lasix at this point No active chest pain Acute hypoxia related to CHF exacerbation Chest CT rule out PE No active wheezing mild crackles noted on lung auscultation Afebrile No signs of pneumonia on CT chest COVID-negative History of sleep apnea I will give her BiPAP for tonight Review of records: She has been experiencing blurry vision, visual hallucination as per PCPs note follows up with Dr. Grossman she has been suffering from memory issues as well along balance, no diagnosis of normal pressure hydrocephalus Gradual decline of functional status Acute on chronic kidney disease likely cardiorenal anticipating provement with diuresis History of gout no acute exacerbation Asterixis positive: Requested ABG to rule out hypercapnia No signs of stroke patient is able to move all of her extremities and able to answer my question she told me her date of of her attention span is short A. fib without RVR Status post AICD/pacemaker Paced rhythm Please do a Mini-Mental exam in the morning once she is more awake and alert No focal weakness She is currently on dual antiplatelet therapy She is a non-smoker I will check her hemoglobin A1c level Will request MRI brain as well Full code Cardiac diet DVT prophylaxis Heparin Attestations Medical Necessity Statement*: Anticipating more than 2 midnights in the hospital for CHF exacerbation Time Spent in Patient Care: 40 Coding Level of Care Code Acute Business Continuity Management Director for Chg Fwd Diagnoses Congestive heart failure I50.9 BERNADETTE (acute kidney injury) N17.9 Intracranial atherosclerosis I67.2 Balance disorder R26.89 Cognitive impairment R41.89 Cardiac 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 therapy 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 (RATTLE LEAK AND SQUEAK REPAIRER-D) in place Z95.810 Left bundle branch block I44.7 Vertebral artery stenosis I65.09 Sleep apnea G47.30 Gout M1A.3790 Gout site: ankle Gout etiology: due to renal impairment Chronicity: chronic Laterality: unspecified laterality Presence of tophus: without tophus Anemia D50.8 Anemia type: iron deficiency Iron deficiency anemia type: inadequate dietary iron intake Iron deficiency anemia D50.8 Iron deficiency anemia type: inadequate dietary iron intake Cardiomyopathy I42.9
[2022-02-07 16:49] LABS: Parainfluenza Virus Type 1 Detected (NOT DETECT); Parainfluenza Virus Type 2 Not Detected (NOT DETECT); Parainfluenza Virus Type 3 Not Detected (NOT DETECT); Parainfluenza Virus Type 4 Not Detected (NOT DETECT); Results from Genmark
--- NOTE | 2022-02-07 16:55 | ECG_ITS ---
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 Measurements Intervals [place] Rate: 73 P: GA: QRS: -69 QRSD: 160 T: 100 QT: 454 QTc: 501 Interpretive Statements ELECTRONIC VENTRICULAR PACEMAKER ABNORMAL RHYTHM ECG Compared to ECG 02/07/2022 15:26:15 Right-axis deviation no longer present Right bundle-branch block no longer present Myocardial infarct finding no longer present T-wave abnormality no longer present Possible ischemia no longer present Electronically Signed On 02-07-2022 22:04:43 CDT by Kel Molina M.D. [email or web address].[employer]/store/OM/[id number]
[2022-02-07] MEDS: ipratropium-albuterol 3 mL Neb INHALATION (17:01)
--- NOTE | 2022-02-07 17:02 | CTR_ITS ---
PROCEDURE INFORMATION: Exam: CT Head Without Contrast Exam date and time: 02/07/2022 5:25 PM Age: 71 years old Clinical indication: Injury or trauma; Fall; Blunt trauma (contusions or hematomas) TECHNIQUE: Imaging protocol: Computed tomography of the head without contrast. Radiation optimization: All CT scans at this facility use at least one of these dose optimization techniques: automated exposure control; mA and/or kV adjustment per patient size (includes targeted exams where dose is matched to clinical indication); or iterative reconstruction. COMPARISON: CT head wo con* [id number] 12/22/2021 12:46 PM RADIATION DOSE METRICS: Total DLP (mGy-cm): 1224.29 FINDINGS: Brain: Benign globus pallidus calcifications are present. There is mild diffuse cerebral atrophy present, consistent with this patient's age. Periventricular and subcortical white matter low densities are present which at this age likely represent microvascular ischemic change. No evidence for large acute ischemic infarction. Please note acute ischemia can be occult by head CT. There is a small chronic lacunar infarct in the left lentiform nucleus similar to the prior CT scan. Calcified plaque is present within the intracranial vasculature. Cerebral ventricles: No ventriculomegaly. Paranasal sinuses: Visualized sinuses are unremarkable. No fluid levels. Mastoid air cells: Visualized mastoid air cells are well aerated. Bones/joints: Unremarkable. No acute fracture. Soft tissues: Unremarkable. CT/CT head wo con* [id number] IMPRESSION: There are senescent changes of the brain as described above. No evidence for large acute ischemic infarction or acute intracranial injury.
[2022-02-07 17:47] LABS: ABG PCO2 41.2 mmHg (35-45); ABG PH Result 7.36 (7.35-7.45); Arterial Blood Gas Hematocrit 39.4 % (37-47); Base Excess ABG -1.9 mmol/L (-2.0-2.0); Blood Gas Allen Test Pos; Blood Gas Operator Identificat ED; Blood Gas Sample Site Radial, left; Blood Gas Sample Type Arterial; HCO3 ABG 23.4 mmol/L (22-26); Oxygen Device NC; PO2 ABG 75.8 mmHg (80.0-100.0)
[2022-02-07] MEDS: pantoprazole DR 40 mg Tablet PO (20:20)
[2022-02-07] MEDS: heparin 5,000 unit/mL INJ 1 mL 5000 UNIT SUBCUT (20:23)
[2022-02-07] MEDS: FUROsemide 10 mg/mL SDV 10mL 60 MG IVP (20:23)
[2022-02-07 20:28] LABS: Estmated Average Glucose 103; Hemoglobin A1C 5.2 % (4.0-6.0)
[2022-02-07 20:35] LABS: D Dimer 1.79 ug/mIFEU (0-0.59)
[2022-02-07 20:42] LABS: Troponin 5 6HR 52.34 ng/L (0-10)
[2022-02-07 20:51] LABS: Troponin 5 6HR Delta 23.34 ng/L (0-12)
[2022-02-07 21:02] LABS: Glucose Point of Care 127 mg/dL (70-110)
[2022-02-08] VITALS (13 sets, daily range): BP systolic 109–136; BP diastolic 64–79; PULSE 69–79; RESP 15–20; TEMP 36.3–38; O2SAT 86–98
[2022-02-08] MEDS: acetaminophen 325 mg Tablet 650 MG PO (00:30)
[2022-02-08 05:10] LABS: Basophils % 0.2 %; Hematocrit 37.8 % (37.0-47.0); Hemoglobin 12.1 g/dL (11.5-15.3); Lymphocytes # 1.2 10^3/uL (0.8-4.8); Lymphocytes % 18.5 %; Mean Corpuscular Hemoglobin 31.7 pg (28.0-34.0); Mean Platelet Volume 10.8 fL (7.4-10.4); Monocytes # 0.3 10^3/uL (0.2-0.9); Neutrophils # 5.05 10^3/uL (1.8-7.7); Nucleated Red Blood Cells % 0 %; Platelet Count 148 10^3/cmm (130-400); Red Blood Count 3.82 10^6/uL (4.1-5.3); Red Cell Distribution Width 15.3 % (12.1-15.1); White Blood Count 6.6 10^3/uL (4.0-10.0)
[2022-02-08 05:16] LABS: Slide Review Slide Review Perform
[2022-02-08 05:36] LABS: Anion Gap 16.8 (5-19); Blood Urea Nitrogen 71 mg/dL (8-23); C Reactive Protein 145.2 mg/L (0.0-4.9); Calcium 9.1 mg/dL (8.5-10.5); Carbon Dioxide 24 mmol/L (22-29); Chloride 99 mmol/L (98-107); Glucose 166 mg/dL (65-115); Magnesium 1.7 mg/dL (1.7-2.3); Osmolality Calculated 307 mOsm/kg (285-295); Phosphorus 4.5 mg/dL (2.5-4.5); Potassium 3.8 mmol/L (3.5-5.1); Sodium 136 mmol/L (136-145)
[2022-02-08 06:29] LABS: Glucose Point of Care 169 mg/dL (70-110)
[2022-02-08] MEDS: heparin 5,000 unit/mL INJ 1 mL 5000 UNIT SUBCUT ×2 (08:52→20:28)
[2022-02-08] MEDS: FUROsemide 10 mg/mL SDV 10mL 60 MG IVP (08:52)
[2022-02-08] MEDS: insulin lispro 100 unit/1 mL SUBCUT (08:53)
[2022-02-08] MEDS: allopurinol 100 mg Tablet 400 MG PO (08:53)
[2022-02-08] MEDS: atorvastatin 40 mg Tablet PO (08:53)
[2022-02-08] MEDS: potassium chloride ER 20 mEq Tablet PO (08:53)
[2022-02-08] MEDS: aspirin 81 mg EC Tablet PO (08:54)
[2022-02-08] MEDS: pantoprazole DR 40 mg Tablet PO ×2 (08:54→20:28)
[2022-02-08] MEDS: clopidogrel 75 mg Tablet PO (08:54)
[2022-02-08] MEDS: lisinopril 20 mg Tablet PO (08:54)
[2022-02-08] MEDS: sennosides-docusate Tablet 1 TAB PO (08:54)
[2022-02-08 11:53] LABS: Glucose Point of Care 138 mg/dL (70-110)
--- NOTE | 2022-02-08 12:28 | PC.CHAP ---
Pastoral Care Encounter/Spiritual Assessment Type of Contact [] Declined bridge crane operator visit [] Patient/Family/Request visit [] Outpatient visit [] Follow-up visit [] Physician referral [] Code/Alert [x] Routine visit [] Staff referral [] Actively dying [] Patient sleeping [] Family support [] [] Out of room [] Palliative care [] [] Receiving care in room [] Pre-surgical visit [] Trauma [] Long length of stay [] ICU visit [] Other:covid Relational/Emotional Strength [] Patient feels connected with others/family/visitors/staff [] Distress [] Loneliness/isolation [] Abandonment Spirituality of Patient [] Person of Sailaja [] Attends Oriental Orthodox of their Sailaja [] Believes in Prayer [] Reads Bible or Confucianist materials [] There are Spiritual issues to be addressed Hand Wrapper Operator Interventions [] Prayer [] Active listening [] Non-anxious presence [] Spiritual/emotional support [] Crisis/trauma care [] Spiritual counseling [] Bereavement support [] Provided bereavement packet [] Provided Bible/devotional materials [] Provided toy/stuffed animal, coloring book to patient or family member [] Provided Communion [] Anointing/[place] [] Salvation [] Completed spiritual assessment [] Other: Impact on Illness or Injury [] Angry [] Fearful [] Anxious [] Often cries [] Exhaustion [] Unable to work [] Unable to attend baptist [] Unable to walk/stand [] Unable to read [] Unable to drive [] Unable to eat/drink [] Unable to sleep [] Unable to be with family [] Patient intubated [] Other: Summary Time spent with patient
[2022-02-08 13:55] LABS: Procalcitonin 2.41 ng/mL (0-0.5); Thyroid Stimulating Hormone 0.59 uIU/mL (0.27-4.20)
[2022-02-08 14:06] LABS: Iron 16 ug/dL (37-145); Percent Saturation 4.9 % (20-50); Total Iron Binding Capacity 326 mcg/dl; Unsaturated Iron Binding 310 ug/dL (112-347)
[2022-02-08] MEDS: FUROsemide 10 mg/mL SDV 10mL 40 MG IVP (15:27)
--- NOTE | 2022-02-08 15:51 | P.PN_ITS ---
Subjective Subjective: Hospital course, labs appreciated. Laying comfortably in bed. States feeling a lot better. Currently on 2 L nasal cannula saturating more than 92%. Patient states she is feeling about 60% better than when she came in and his breathing is a lot better. Asking if she can go to the commode for next bowel movement then bedside commode. Family at bedside. Vitals/I&O/Wt Last Vital Signs Temp 97.3 F L 02/08/22 10:47 Pulse 69 02/08/22 10:47 Resp 18 02/08/22 10:47 BP 125/72 02/08/22 10:47 Pulse Ox 97 02/08/22 10:47 O2 Del Method 02/08/22 08:43 O2 Flow Rate 2 02/08/22 08:43 FiO2 40 02/08/22 00:28 02/08/22 02/08/22 02/08/22 06:59 14:59 22:59 Intake Total 900 / 3700 Output Total 450 / 1150 Balance 450 / 2550 Weight last 48 hrs Weight 83.915 kg Physical Exam Narrative: General: No acute distress, AO x3, on 4 L nasal cannula saturating well. Turned down to 2 L. HEENT: PERRLA, pupils bilaterally equal and reactive Chest: Bilateral bronchial breath sounds, occasional rhonchi present all lung arriaga, soft crackles present up to mid lungs bilaterally CVS: S1-S2 regular, no murmurs, no tachycardia, no gallops, no rubs Abdomen: Soft, nontender, no organomegaly, bowel sounds present Neuro: No focal deficits, no facial deformity, AO x3, power 5/5 in all limbs Urinary Catheter Management: Estes: Cath Placed During This Visit: yes Reason for Continuing Indwelling Catheter: Accurate Measurement of Urinary Output in Critically Ill Patients Urinary Catheter Date of Insertion: 02/08/22 Urinary Catheter Time of Insertion: 00:40 Data : 02/08/22 04:57 02/08/22 04:57 Micro: Microbiology 02/07/22 13:33 Blood Culture - Preliminary Blood NEGATIVE TO DATE 02/07/22 13:33 Blood Culture - Preliminary Blood NEGATIVE TO DATE 02/07/22 16:00 Sputum Culture - Preliminary Sputum - Expectorated Sputum 02/07/22 14:39 Urine Culture - Preliminary Urine,Clean Catch Gram Negative Rods A&P Assessment and plan (1) Congestive heart failure: (2) Cardiomyopathy: Qualifiers: Cardiomyopathy type: ischemic Qualified Code(s): I25.5 - Ischemic cardiomyopathy (3) BERNADETTE (acute kidney injury): (4) Intracranial atherosclerosis: (5) Balance disorder: (6) Cognitive impairment: (7) Cardiac 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 therapy 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 (PAYROLL MASTER-D) in place: (8) Left bundle branch block: (9) Vertebral artery stenosis: (10) Sleep apnea: (11) Iron deficiency anemia: Qualifiers: Iron deficiency anemia type: inadequate dietary iron intake Qualified Code(s): D50.8 - Other iron deficiency anemias Plan Combined CHF: History of cardiomyopathy. Lasix 40 mg every 12 hourly. Estes catheterization. Daily weight. Strict input output charting. Fluid restriction up to 1500 cc. Acute hypoxia related to CHF exacerbation: Resolving. Oxygen supplementation keeping saturation over 88%. Chest CT rule out PE. No COPD exacerbation as no active wheezing mild crackles noted on lung auscultation No consolidation on CT to consider pneumonia. COVID-19 PCR negative. History of sleep apnea: BiPAP nightly BERNADETTE on CKD: Cannot rule out CRS. Check urine lites, urine creatinine. Creatinine currently stable at 1.6. Baseline creatinine seems to be 0.9-1.3. Monitor daily. Medical reconciliation done for nephrotoxic drugs. For now we will hold off on home dose of lisinopril. She has been experiencing blurry vision, visual hallucination as per PCPs note follows up with Dr. Grossman she has been suffering from memory issues as well along balance, no diagnosis of normal pressure hydrocephalus Gradual decline of functional status Cannot rule out baseline dementia. CT head on admission negative for acute ischemia. Most likely will need an MRI as an outpatient. Cannot rule out secondary to mild uremia present on admission. History of gout no acute exacerbation A. fib without RVR Status post AICD/pacemaker Paced rhythm Full code Cardiac diet DVT prophylaxis Heparin Attestations 2 Medical Necessity Statement*: Requires further hospitalization for management of acute decompensated congestive heart failure, BERNADETTE on CKD Time Spent in Patient Care: Greater than 35 minutes Coding Level of Care Code Acute Point Of Care Technician for [facility] Fwd Diagnoses Congestive heart failure I50.9 Cardiomyopathy I25.5 Cardiomyopathy type: ischemic BERNADETTE (acute kidney injury) N17.9 Intracranial atherosclerosis I67.2 Balance disorder R26.89 Cognitive impairment R41.89 Cardiac 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 therapy 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 (PAYROLL MASTER-D) in place Z95.810 Left bundle branch block I44.7 Vertebral artery stenosis I65.09 Sleep apnea G47.30 Iron deficiency anemia D50.8 Iron deficiency anemia type: inadequate dietary iron intake
--- NOTE | 2022-02-08 15:54 | USCV_ITS ---
AlejandreEssie Age: 71 Gender: F : 1950 Exam Date: 02/08/2022 16:44 Ordering Phys: Paul Manuel MD Technologist: Garry Coles [place]am [place] [facility] [place]: Cardiomyopathy BP: 125 / 72 HR: 69 Rhythm: Sinus Technical Quality: Adequate MEASUREMENTS (Male / Female) Normal Values 2D ECHO LV Diastolic Diameter PLAX 4.6 cm 4.2 - 5.9 / 3.9 - 5.3 cm LV Systolic Diameter PLAX 3.5 cm IVS Diastolic Thickness 1.1 cm 0.6 - 1.0 / 0.6 - 0.9 cm IVS Systolic Thickness 1.6 cm LVPW Diastolic Thickness 0.6 cm 0.6 - 1.0 / 0.6 - 0.9 cm LVPW Systolic Thickness 1.3 cm LVOT Diameter 2.0 cm LV Ejection Fraction 2D Teich 48.6 % LV Ejection Fraction MOD 2C 61.6 % LV Ejection Fraction 2C AL 62.1 % LA Diameter 4.0 cm LA Width 3.7 cm LA Height 6.0 cm RA Width 3.6 cm RA Height 4.8 cm Aorta at Sinotubular Diameter 1.8 cm IVC Diameter 1.7 cm M-MODE Aortic Annulus Diameter 2.5 cm LA Ao Ratio MM 1.7 MV E Point Septal Separation 1.0 cm DOPPLER AV Peak Velocity 208.7 cm/s LVOT Peak Velocity 91.0 cm/s AV Area Cont Eq vti 1.5 cm squared AV Area Cont Eq pk 1.4 cm squared MV Peak Velocity 151.0 cm/s MV Area PHT 3.7 cm squared Mitral E to A Ratio 2.6 MV E' Velocity 72.0 cm/s Mitral E to LV E' Lateral Ratio 11.6 TR Peak Velocity 250.5 cm/s TR Peak Gradient 25.1 mmHg TR Mean Velocity 198.9 cm/s TR Mean Gradient 16.8 mmHg TR Velocity Time Integral 62.1 cm Right Atrial Pressure 3.0 mmHg Pulmonary Artery Systolic Pressu 28.1 mmHg PV Peak Velocity 137.0 cm/s RV Acceleration Time 0.1 s RV Ejection Time 0.3 s RV AcT/ET 0.3 FINDINGS Left Ventricle Normal left ventricular size, systolic function and wall thickness, with no regional wall motion abnormalities. Left ventricular ejection fraction is estimated at 55 %. Rhythm precludes evaluation of diastolic function. Abnormal septal motion consistent with pacemaker. Right Ventricle Normal right ventricular size and systolic function. Right ventricular systolic pressure 28.1 mmHg. Pacemaker wire visualized in the right ventricle. Right Atrium Normal right atrial size. Left Atrium Mildly increased left atrial size. Mitral Valve Mild mitral annular calcification. Thickened mitral valve. No mitral valve stenosis. Trace mitral valve regurgitation. Aortic Valve Aortic valve not well visualized. Thickened and calcified sclerotic aortic valve. No aortic valve stenosis. Trace aortic valve regurgitation. Tricuspid Valve Trace tricuspid valve regurgitation. Pulmonic Valve Structurally normal pulmonic valve. No pulmonary valve stenosis. Trace pulmonary valve regurgitation. Pericardium No pericardial effusion. Aorta Normal size aortic root and proximal ascending aorta. IVC Normal IVC dimension with >50% respiratory change of the inferior vena cava. CONCLUSIONS 1. Normal left ventricular size, systolic function and wall thickness, with no regional wall motion abnormalities. Left ventricular ejection fraction is estimated at 55 %. 2. Normal right ventricular size and systolic function. 3. Trace aortic valve regurgitation. 4. When compared to previous study dated 06/23/2018, left ankle systolic function seems to have improved. Denise Matos MD (Electronically Signed) Final Date: 09 February 2022 13:05 S
[2022-02-08 16:47] LABS: Potassium, Radom Urine 29 mmol/L; Urine Creatinine 78 mg/dL (28-217); Urine Random Chloride 27 mmol/L
[2022-02-08 16:50] LABS: Urine Random Sodium 15 mmol/L
[2022-02-08 20:20] LABS: Glucose Point of Care 130 mg/dL (70-110)
[2022-02-09] VITALS (10 sets, daily range): BP systolic 126–160; BP diastolic 60–82; PULSE 67–75; RESP 17–22; TEMP 36.3–37.7; O2SAT 94–97
[2022-02-09] MEDS: FUROsemide 10 mg/mL SDV 10mL 40 MG IVP ×2 (05:22→15:51)
[2022-02-09 05:24] LABS: Hematocrit 41.5 % (37.0-47.0); Hemoglobin 13.3 g/dL (11.5-15.3); Lymphocytes % 24.9 %; Mean Corpuscular Hemoglobin 31.8 pg (28.0-34.0); Mean Corpuscular Volume 99.3 fl (81-99); Mean Platelet Volume 10.8 fL (7.4-10.4); Monocytes # 0.5 10^3/uL (0.2-0.9); Neutrophils % 62.8 %; Nucleated Red Blood Cells % 0 %; Platelet Count 166 10^3/cmm (130-400); Red Blood Count 4.18 10^6/uL (4.1-5.3); Red Cell Distribution Width 15.1 % (12.1-15.1); White Blood Count 3.8 10^3/uL (4.0-10.0)
[2022-02-09 06:11] LABS: Alanine Aminotransferase 21 U/L (0-33); Alkaline Phosphatase 98 U/L (35-105); Anion Gap 20.5 (5-19); Aspartate Amino Transferase 64 U/L (0-32); Blood Urea Nitrogen 66 mg/dL (8-23); Calcium 9.6 mg/dL (8.5-10.5); Carbon Dioxide 24 mmol/L (22-29); Chloride 95 mmol/L (98-107); Chol HDL Ratio 3.55 mg/dL (0.0-4.40); Cholesterol 188 mg/dL (0-200); Globulin 3.4 g/dL (1.3-4.6); Glomerular Filtration Rate 37.3 mL/min (90-130); Glucose 113 mg/dL (65-115); HDL Cholesterol 53 mg/dL (60-100); LDL Cholesterol Calculated 97 mg/dL (50-129); Osmolality Calculated 302 mOsm/kg (285-295); Potassium 3.5 mmol/L (3.5-5.1); Sodium 136 mmol/L (136-145); Total Bilirubin 0.8 mg/dL (0.15-1.2); Total Protein 7.4 g/dL (6.6-8.7); Triglycerides 191 mg/dL (0-150); VLDL Cholestrol Calculation 38 mg/dL (0-30)
[2022-02-09 06:12] LABS: Glucose Point of Care 111 mg/dL (70-110)
[2022-02-09] MEDS: sennosides-docusate Tablet 1 TAB PO (08:06)
[2022-02-09] MEDS: heparin 5,000 unit/mL INJ 1 mL 5000 UNIT SUBCUT ×2 (08:06→20:10)
[2022-02-09] MEDS: clopidogrel 75 mg Tablet PO (08:06)
[2022-02-09] MEDS: pantoprazole DR 40 mg Tablet PO ×2 (08:07→20:10)
[2022-02-09] MEDS: potassium chloride ER 20 mEq Tablet PO (08:07)
[2022-02-09] MEDS: atorvastatin 40 mg Tablet PO (08:07)
[2022-02-09] MEDS: aspirin 81 mg EC Tablet PO (08:07)
[2022-02-09] MEDS: allopurinol 100 mg Tablet 400 MG PO (08:07)
[2022-02-09] MEDS: cefTRIAXone 1,000 MG in sodium chloride 0.9% (plus) 50 ML 100 MG IV (11:02)
[2022-02-09] MEDS: ipratropium-albuterol 3 mL Neb INHALATION (15:58)
--- NOTE | 2022-02-09 16:11 | PM.PN ---
Subjective Subjective: No acute events overnight. Today morning examination patient states she is feeling better but she is feeling very lethargic, tired, and having frequent episodes of diarrhea though has not been reported by the nurse and nausea. Patient complaining of myalgias. Patient asking how, she was having jerking movements of her arms before which seem to have resolved now. Vitals/I&O/Wt Last Vital Signs Temp 99.6 F 02/09/22 11:01 Pulse 69 02/09/22 16:00 Resp 20 H 02/09/22 16:00 BP 158/82 02/09/22 07:54 Pulse Ox 96 02/09/22 16:00 O2 Del Method 02/09/22 16:00 O2 Flow Rate 3 02/09/22 16:00 FiO2 32 02/09/22 15:56 02/09/22 02/09/22 02/09/22 06:59 14:59 22:59 Intake Total 480 / 480 50 / 50 Output Total 1350 / 1350 950 / 950 Balance -870 / -870 -900 / -900 Physical Exam Narrative: General: No acute distress, AO x3, on 4 L nasal cannula saturating well. Turned down to 2 L. HEENT: PERRLA, pupils bilaterally equal and reactive Chest: Bilateral bronchial breath sounds, occasional rhonchi present all lung arriaga, soft crackles present up to mid lungs bilaterally CVS: S1-S2 regular, no murmurs, no tachycardia, no gallops, no rubs Abdomen: Soft, nontender, no organomegaly, bowel sounds present Neuro: No focal deficits, no facial deformity, AO x3, power 5/5 in all limbs Urinary Catheter Management: Estes: Cath Placed During This Visit: yes, but has since been removed by the nurse Reason for Continuing Indwelling Catheter: Decision to DC Catheter Urinary Catheter Date of Insertion: 02/08/22 Urinary Catheter Time of Insertion: 00:40 Date Urinary Catheter Removed: 02/09/22 Time Urinary Catheter Discontinued: 11:03 Data : 02/09/22 05:05 02/09/22 05:05 Micro: Microbiology 02/07/22 16:00 Gram Stain - Final Sputum - Expectorated Sputum Sputum Culture - Final 02/07/22 14:39 Urine Culture - Final Urine,Clean Catch Escherichia coli 02/07/22 22:40 MRSA Culture - Final Nose 02/07/22 13:33 Blood Culture - Preliminary Blood NEGATIVE TO DATE 02/07/22 13:33 Blood Culture - Preliminary Blood NEGATIVE TO DATE A&P Assessment and plan (1) Congestive heart failure: Qualifiers: Heart failure type: diastolic Heart failure chronicity: acute on chronic Qualified Code(s): I50.33 - Acute on chronic diastolic (congestive) heart failure (2) Cardiomyopathy: Qualifiers: Cardiomyopathy type: ischemic Qualified Code(s): I25.5 - Ischemic cardiomyopathy (3) BERNADETTE (acute kidney injury): (4) Intracranial atherosclerosis: (5) Balance disorder: (6) Cognitive impairment: (7) Cardiac 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 therapy 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 (HOIST WORKER-D) in place: (8) Left bundle branch block: (9) Vertebral artery stenosis: (10) Sleep apnea: (11) Iron deficiency anemia: Qualifiers: Iron deficiency anemia type: inadequate dietary iron intake Qualified Code(s): D50.8 - Other iron deficiency anemias (12) Parainfluenza infection: Plan Combined CHF: History of cardiomyopathy. EF has improved. Diastolic heart failure currently Echocardiogram shows an EF of 55%, trace AI. Lasix 40 mg every 12 hourly. D/c Estes catheterization. Daily weight. Strict input output charting. Fluid restriction up to 1500 cc. Acute hypoxia related to CHF exacerbation: Resolving. Oxygen supplementation keeping saturation over 88%. Chest CT rule out PE. No COPD exacerbation as no active wheezing mild crackles noted on lung auscultation No consolidation on CT to consider pneumonia. COVID-19 PCR negative. Parainfluenza positive. History of sleep apnea: BiPAP nightly BERNADETTE on CKD: Creatinine trending down to almost baseline. Uremia improving. Creatinine currently stable at 1.6. Baseline creatinine seems to be 0.9-1.3. Monitor daily. Medical reconciliation done for nephrotoxic drugs. For now we will hold off on home dose of lisinopril. Parainfluenza infection: Prodromal, nausea, vomiting, possible episodes of diarrhea secondary to the infection. Will continue supportive treatment. Check stool for C. difficile. E. coli UTI: Urine cultures positive for E. coli. Patient not good historian. Cannot rule out symptomatic UTI. For now we will start with with ceftriaxone. Sensitivities resistant to Levaquin. Hallucinations/jerking movements of the arms: Most likely secondary to uremia. Could be secondary to advancing dementia. She has been experiencing blurry vision, visual hallucination as per PCPs note follows up with Dr. Grossamn she has been suffering from memory issues as well along balance, no diagnosis of normal pressure hydrocephalus Gradual decline of functional status Cannot rule out baseline dementia. CT head on admission negative for acute ischemia. Most likely will need an MRI as an outpatient. Uremia is improving. Jerky movements and hallucinations seem to have resolved for now. History of gout no acute exacerbation A. fib without RVR Status post AICD/pacemaker Paced rhythm Full code Cardiac diet DVT prophylaxis Heparin Attestations Medical Necessity Statement*: Requires further hospitalization for management of parainfluenza infection, hypoxia secondary to diastolic heart failure, E. 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
[2022-02-09] MEDS: ondansetron 2 mg/ML SDV 2 mL 4 MG IVP (17:57)
[2022-02-09] MEDS: acetaminophen 325 mg Tablet 650 MG PO (20:08)
[2022-02-09 20:49] LABS: Glucose Point of Care 113 mg/dL (70-110)
[2022-02-10] VITALS (10 sets, daily range): BP systolic 128–150; BP diastolic 62–81; PULSE 65–100; RESP 16–22; TEMP 36.2–36.7; O2SAT 95–99
[2022-02-10 02:58] LABS: Basophils % 0.3 %; Hematocrit 39.9 % (37.0-47.0); Hemoglobin 12.5 g/dL (11.5-15.3); Lymphocytes # 0.9 10^3/uL (0.8-4.8); Lymphocytes % 27.1 %; Mean Corpuscular HGB Conc 31.3 g/dL (30.0-36.0); Mean Corpuscular Hemoglobin 31.6 pg (28.0-34.0); Mean Corpuscular Volume 100.8 fl (81-99); Monocytes # 0.5 10^3/uL (0.2-0.9); Monocytes % 15.6 %; Neutrophils # 1.82 10^3/uL (1.8-7.7); Neutrophils % 56.7 %; Nucleated Red Blood Cells % 0 %; Platelet Count 143 10^3/cmm (130-400); Red Blood Count 3.96 10^6/uL (4.1-5.3); Red Cell Distribution Width 14.8 % (12.1-15.1); White Blood Count 3.2 10^3/uL (4.0-10.0)
[2022-02-10 03:20] LABS: Alanine Aminotransferase 23 U/L (0-33); Albumin Level 3.5 g/dL (3.5-5.2); Alkaline Phosphatase 88 U/L (35-105); Anion Gap 18.3 (5-19); Aspartate Amino Transferase 65 U/L (0-32); Blood Urea Nitrogen 53 mg/dL (8-23); Calcium 9.3 mg/dL (8.5-10.5); Carbon Dioxide 26 mmol/L (22-29); Chloride 94 mmol/L (98-107); Globulin 3.5 g/dL (1.3-4.6); Glomerular Filtration Rate 40.6 mL/min (90-130); Glucose 109 mg/dL (65-115); Osmolality Calculated 295 mOsm/kg (285-295); Potassium 3.3 mmol/L (3.5-5.1); Sodium 135 mmol/L (136-145); Total Bilirubin 0.8 mg/dL (0.15-1.2)
[2022-02-10 06:18] LABS: Glucose Point of Care 104 mg/dL (70-110)
[2022-02-10] MEDS: allopurinol 100 mg Tablet 400 MG PO (08:56)
[2022-02-10] MEDS: FUROsemide 10 mg/mL SDV 10mL 40 MG IVP (08:57)
[2022-02-10] MEDS: heparin 5,000 unit/mL INJ 1 mL 5000 UNIT SUBCUT ×2 (08:58→20:32)
[2022-02-10] MEDS: atorvastatin 40 mg Tablet PO (08:58)
[2022-02-10] MEDS: clopidogrel 75 mg Tablet PO (08:58)
[2022-02-10] MEDS: sennosides-docusate Tablet 1 TAB PO (08:58)
[2022-02-10] MEDS: pantoprazole DR 40 mg Tablet PO ×2 (08:58→20:31)
[2022-02-10] MEDS: aspirin 81 mg EC Tablet PO (08:58)
[2022-02-10] MEDS: potassium chloride ER 20 mEq Tablet PO (08:58)
--- NOTE | 2022-02-10 14:13 | P.PN_ITS ---
Subjective Subjective: No acute vents overnight. Patient denies any nausea, vomiting, headache. Has remained hemodynamically stable and afebrile. On baseline oxygen supplementation. States feeling better today. Vitals/I&O/Wt Last Vital Signs Temp 98.0 F 02/10/22 11:14 Pulse 65 02/10/22 11:14 Resp 18 02/10/22 11:14 BP 140/62 02/10/22 11:14 Pulse Ox 95 02/10/22 11:14 O2 Del Method 02/10/22 11:14 O2 Flow Rate 2 02/10/22 08:22 FiO2 32 02/09/22 15:56 Physical Exam Narrative: General: No acute distress, AO x3, on 4 L nasal cannula saturating well. Turned down to 2 L. HEENT: PERRLA, pupils bilaterally equal and reactive Chest: Bilateral bronchial breath sounds, occasional rhonchi present all lung arriaga, soft crackles present up to mid lungs bilaterally CVS: S1-S2 regular, no murmurs, no tachycardia, no gallops, no rubs Abdomen: Soft, nontender, no organomegaly, bowel sounds present Neuro: No focal deficits, no facial deformity, AO x3, power 5/5 in all limbs Urinary Catheter Management: Estes: Cath Placed During This Visit: yes, but has since been removed by the nurse Reason for Continuing Indwelling Catheter: Decision to DC Catheter Urinary Catheter Date of Insertion: 02/08/22 Urinary Catheter Time of Insertion: 00:40 Date Urinary Catheter Removed: 02/09/22 Time Urinary Catheter Discontinued: 11:03 Data : 02/10/22 02:47 02/10/22 02:47 Micro: Microbiology 02/07/22 16:00 Gram Stain - Final Sputum - Expectorated Sputum Sputum Culture - Final 02/07/22 14:39 Urine Culture - Final Urine,Clean Catch Escherichia coli A&P Assessment and plan (1) Congestive heart failure: Qualifiers: Heart failure chronicity: acute on chronic Heart failure type: diane stolic Qualified Code(s): I50.33 - Acute on chronic diastolic (congestive) heart failure (2) Cardiomyopathy: Qualifiers: Cardiomyopathy type: ischemic Qualified Code(s): I25.5 - Ischemic cardiomyopathy (3) BERNADETTE (acute kidney injury): (4) Intracranial atherosclerosis: (5) Balance disorder: (6) Cognitive impairment: (7) Cardiac 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 therapy 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 (LABORATORY COURIER-D) in place: (8) Left bundle branch block: (9) Vertebral artery stenosis: (10) Sleep apnea: (11) Iron deficiency anemia: Qualifiers: Iron deficiency anemia type: inadequate dietary iron intake Qualified Code(s): D50.8 - Other iron deficiency anemias (12) Parainfluenza infection: Plan Combined CHF: History of cardiomyopathy. EF has improved. Diastolic heart failure currently Echocardiogram shows an EF of 55%, trace AI. Lasix 40 mg every 12 hourly. D/c Estes catheterization. Daily weight. Strict input output charting. Fluid restriction up to 1500 cc. Acute hypoxia related to CHF exacerbation: Resolving. Oxygen supplementation keeping saturation over 88%. Chest CT rule out PE. No COPD exacerbation as no active wheezing mild crackles noted on lung auscultation No consolidation on CT to consider pneumonia. COVID-19 PCR negative. Parainfluenza positive. History of sleep apnea: BiPAP nightly BERNADETTE on CKD: Creatinine trending down to almost baseline. Uremia improving. Creatinine currently stable at 1.6. Baseline creatinine seems to be 0.9-1.3. Monitor daily. Medical reconciliation done for nephrotoxic drugs. For now we will hold off on home dose of lisinopril. Parainfluenza infection: Prodromal, nausea, vomiting, possible episodes of diarrhea secondary to the infection. Will continue supportive treatment. Check stool for C. difficile. E. coli UTI: Urine cultures positive for E. coli. Patient not good historian. Cannot rule out symptomatic UTI. For now we will start with with ceftriaxone. Sensitivities resistant to Levaquin. Hallucinations/jerking movements of the arms: Most likely secondary to uremia. Could be secondary to advancing dementia. She has been experiencing blurry vision, visual hallucination as per PCPs note follows up with Dr. Grossman she has been suffering from memory issues as well along balance, no diagnosis of normal pressure hydrocephalus Gradual decline of functional status Cannot rule out baseline dementia. CT head on admission negative for acute ischemia. Most likely will need an MRI as an outpatient. Uremia is improving. Jerky movements and hallucinations seem to have resolved for now. History of gout no acute exacerbation A. fib without RVR Status post AICD/pacemaker Paced rhythm Full code Cardiac diet DVT prophylaxis Heparin Plan for the day: Continue with Lasix 40 mg IV daily. Strict input output charting. Repeat BMP in morning. Continue with IV ceftriaxone for E. coli UTI. Most likely will discharge on oral Keflex to finish a 5 to 7-day course. Plan to discharge in the next 24 hours. Will most likely discharge on oral Lasix 40 mg daily. Patient counseled to restrict oral intake as an outpatient to around 2 L of liquid a day. Attestations Medical Necessity Statement*: Requires further hospitalization for management of BERNADETTE, uremia leading to hallucinations and jerking movement, E. coli UTI, parainfluenza infection Time Spent in Patient Care: Greater than 35 minutes Coding Level of Care Code Acute Utilities Ground Worker for [facility] Fwd Diagnoses Congestive heart failure I50.33 Heart failure chronicity: acute on chronic Heart failure type: diastolic Cardiomyopathy I25.5 Cardiomyopathy type: ischemic BERNADETTE (acute kidney injury) N17.9 Intracranial atherosclerosis I67.2 Balance disorder R26.89 Cognitive impairment R41.89 Cardiac 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 therapy 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 (LABORATORY COURIER-D) in place Z95.810 Left bundle branch block I44.7 Vertebral artery stenosis I65.09 Sleep apnea G47.30 Iron deficiency anemia D50.8 Iron deficiency anemia type: inadequate dietary iron intake Parainfluenza infection B34.8
[2022-02-10] MEDS: cefTRIAXone 1,000 MG in sodium chloride 0.9% (plus) 50 ML 100 MG IV (15:11)
[2022-02-11] VITALS: BP 127/67; PULSE 69; RESP 18; TEMP 36.4; O2SAT 97
[2022-02-11 03:24] LABS: Basophils % 0.3 %; Eosinophils # 0.1 10^3/uL (0.0-0.8); Hematocrit 41.9 % (37.0-47.0); Hemoglobin 13.7 g/dL (11.5-15.3); Lymphocytes # 1.6 10^3/uL (0.8-4.8); Lymphocytes % 26.9 %; Mean Corpuscular HGB Conc 32.7 g/dL (30.0-36.0); Mean Corpuscular Hemoglobin 31.7 pg (28.0-34.0); Mean Platelet Volume 11.5 fL (7.4-10.4); Monocytes # 0.7 10^3/uL (0.2-0.9); Monocytes % 11.2 %; Neutrophils # 3.48 10^3/uL (1.8-7.7); Neutrophils % 60.3 %; Nucleated Red Blood Cells % 0 %; Platelet Count 183 10^3/cmm (130-400); Red Blood Count 4.32 10^6/uL (4.1-5.3); Red Cell Distribution Width 14.5 % (12.1-15.1); White Blood Count 5.8 10^3/uL (4.0-10.0)
[2022-02-11 04:00] VITALS: BP 128/73; PULSE 74; RESP 20; TEMP 36.7; O2SAT 93
[2022-02-11 05:36] LABS: Alanine Aminotransferase 28 U/L (0-33); Albumin Level 3.9 g/dL (3.5-5.2); Alkaline Phosphatase 111 U/L (35-105); Aspartate Amino Transferase 64 U/L (0-32); Blood Urea Nitrogen 43 mg/dL (8-23); Calcium 9.6 mg/dL (8.5-10.5); Carbon Dioxide 26 mmol/L (22-29); Chloride 95 mmol/L (98-107); Globulin 3.6 g/dL (1.3-4.6); Glomerular Filtration Rate 49.2 mL/min (90-130); Glucose 106 mg/dL (65-115); Osmolality Calculated 293 mOsm/kg (285-295); Sodium 136 mmol/L (136-145); Total Bilirubin 0.6 mg/dL (0.15-1.2); Total Protein 7.5 g/dL (6.6-8.7)
[2022-02-11 05:46] LABS: Anion Gap 18.3 (5-19); Creatinine Clr Calc Pharmacy 50.5858; Potassium 3.3 mmol/L (3.5-5.1)
[2022-02-11 06:00] VITALS: PULSE 70
[2022-02-11 07:49] VITALS: BP 145/77; PULSE 69; RESP 16; TEMP 36.7; O2SAT 95
[2022-02-11 08:00] VITALS: PULSE 69; RESP 16; O2SAT 93
[2022-02-11] MEDS: aspirin 81 mg EC Tablet PO (09:41)
[2022-02-11] MEDS: potassium chloride ER 20 mEq Tablet PO (09:41)
[2022-02-11] MEDS: allopurinol 100 mg Tablet 400 MG PO (09:41)
[2022-02-11] MEDS: atorvastatin 40 mg Tablet PO (09:41)
[2022-02-11] MEDS: clopidogrel 75 mg Tablet PO (09:42)
[2022-02-11] MEDS: FUROsemide 10 mg/mL SDV 10mL 40 MG IVP (09:42)
[2022-02-11] MEDS: sennosides-docusate Tablet 1 TAB PO (09:42)
[2022-02-11] MEDS: pantoprazole DR 40 mg Tablet PO (09:42)
[2022-02-11] MEDS: heparin 5,000 unit/mL INJ 1 mL 5000 UNIT SUBCUT (09:42)
--- NOTE | 2022-02-11 10:31 | P.DS_ITS ---
Discharge Providers Date of Admission: 02/07/22 19:36 Date of Discharge: February 11, 2022 Attending Provider at Admission: Ying Forman MD Attending Provider at Discharge: Paul Manuel MD Primary Care Provider: Derek Dowd DO Diagnoses at Discharge Discharge Diagnosis (1) Congestive heart failure: Status: Acute Qualifiers: Heart failure chronicity: acute on chronic Heart failure type: diastolic Qualified Code(s): I50.33 - Acute on chronic diastolic (congestive) heart failure (2) Cardiomyopathy: Status: Acute Qualifiers: Cardiomyopathy type: ischemic Qualified Code(s): I25.5 - Ischemic cardiomyopathy (3) BERNADETTE (acute kidney injury): Status: Acute (4) Intracranial atherosclerosis: Status: Acute (5) Balance disorder: Status: Acute (6) Cognitive impairment: Status: Acute (7) Cardiac 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 therapy 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 (BUILDING ENERGY CONSULTANT-D) in place: Status: Acute (8) Left bundle branch block: Status: Acute (9) Vertebral artery stenosis: Status: Acute (10) Sleep apnea: Status: Acute (11) Iron deficiency anemia: Status: Acute Qualifiers: Iron deficiency anemia type: inadequate dietary iron intake Qualified Code(s): D50.8 - Other iron deficiency anemias (12) Parainfluenza infection: Status: Acute Reason for Visit Reason for Visit: Weak, shakes and BP very low, SOB Brief History: History as per HPI: Essie Alejandre is a 71 year old female She has extensive history of coronary disease with CABG history of A. fib, renal artery stenosis, chronic kidney disease ischemic cardiomyopathy mixed heart failure, left bundle branch block, sleep apnea, went to the EP and had a 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 placed when she failed ablation for her A. fib.? 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 Patient is stating that she has been experience shortness of breath for 3 weeks at least, she has not noticed any fever or chest pain.? She does not use oxygen at home at baseline.? No recent fever, diarrhea, upper respite tract infection as per the patient. Diagnostic work-up in ER rule out PE, I have requested stat ABG as patient is showing asterixis with poor attention span.? Clinically she looks fluid overloaded ABG revealed normal pH PCO2 41 mild hypoxia, she is requiring 2 L of oxygen Acute on chronic kidney disease creatinine 1.6 Troponin without significant delta BNP 1600 Signs of UTI COVID-negative Hospital Course Hospital Course Patient was admitted to the hospital for further evaluation and management of hy poxia secondary to congestive heart failure exacerbation. She was started on aggressive IV diuresis. On admission she was also in BERNADETTE on CKD with uremia. Patient is an outpatient has also been experiencing blurry vision, visual hallucination along with gradual decline in function status. She was also found to have asterixis on admission. It is believed the symptoms are secondary to uremia. She was also found to have UTI. BERNADETTE and uremia secondary to most likely CRS. Her kidney functions continue to improve with aggressive diuresis. She did not have any further asterixis and hallucinations once uremia resolved. Her confusion also resolved. Patient has been on her baseline oxygen supplementation for last 48 to 72 hours. Her blood cultures remain negative. Respiratory viral panel was positive for parainfluenza. Urine culture was positive for E. coli sensitive to ceftriaxone but resistant to Levaquin. Patient has been discharged hemodynamically stable condition on oral Keflex for 3 more days, her dose of furosemide has been decreased to 40 mg daily. Lisinopril has been withheld given uremia and BERNADETTE on admission causing her to have MODERN DANCER symptoms. She is to follow-up with her primary care provider within next 1 week for repeat BMP. Physical Exam Narrative: General: No acute distress, AO x3, on room air on exam HEENT: PERRLA, pupils bilaterally equal and reactive Chest: Bilateral bronchial breath sounds, occasional rhonchi present all lung arriaga, soft crackles present up to mid lungs bilaterally CVS: S1-S2 regular, no murmurs, no tachycardia, no gallops, no rubs Abdomen: Soft, nontender, no organomegaly, bowel sounds present Neuro: No focal deficits, no facial deformity, AO x3, power 5/5 in all limbs Urinary Catheter Management: Estes: Cath Placed During This Visit: yes, but has since been removed by the nurse Reason for Continuing Indwelling Catheter: Decision to DC Catheter Urinary Catheter Date of Insertion: 02/08/22 Urinary Catheter Time of Insertion: 00:40 Date Urinary Catheter Removed: 02/09/22 Time Urinary Catheter Discontinued: 11:03 Discharge Data Studies Completed and Pending Completed Studies During Hospitalization Category Date Time Status CT angio chest PE protcl [id number] Stat Cat Scan 02/07/22 14:[address] head wo con* [id number] Stat Cat Scan 02/07/22 17:02 Completed XR chest 1V portable [id number] Stat Exams 02/07/22 12:56 Completed CV. echo complete* [id number] Routine Ultrasound 02/08/22 15:54 Completed Pending at discharge Category Date Time Status Blood Culture Stat Lab 02/07/22 13:33 Results C DIFF [Clostridioides Difficile PCR] Routine Lab 02/09/22 10:43 Uncollected Radiology Impressions Chest X-Ray 02/07/22 12:56 IMPRESSION: No acute findings. Chest CTA 02/07/22 14:52 IMPRESSION: 1. Cardiomegaly. 2. Multivessel atherosclerotic disease which involves the coronary arteries. 3. No evidence for pulmonary embolus. Head CT 02/07/22 17:02 IMPRESSION: There are senescent changes of the brain as described above. No evidence for large acute ischemic infarction or acute intracranial injury. Echocardiogram: ?CONCLUSIONS ?1. Normal left ventricular size, systolic function and wall ?thickness, with no regional wall motion abnormalities. Left ?ventricular ejection fraction is estimated at 55 %. ?2. Normal right ventricular size and systolic function. ?3. Trace aortic valve regurgitation. ?4. When compared to previous study dated 06/23/2018, left ankle ?systolic function seems to have improved. ?Denise Matos MD ?(Electronically Signed) ?Final Date:? ? ? 09 February 2022 ? 13:05 Microbiology 02/07/22 16:00 Sputum - Expectorated Sputum Gram Stain - Final 02/07/22 16:00 Sputum - Expectorated Sputum Sputum Culture - Final 02/07/22 14:39 Urine,Clean Catch Urine Culture - Final Escherichia coli 02/07/22 22:40 Nose MRSA Culture - Final 02/07/22 13:33 Blood Blood Culture - Preliminary NEGATIVE TO DATE 02/07/22 13:33 Blood Blood Culture - Preliminary NEGATIVE TO DATE Laboratory Results WBC 5.8 10^3/uL (4.0-10.0) 02/11/22 02:53 RBC 4.32 10^6/uL (4.1-5.3) 02/11/22 02:53 Hgb 13.7 g/dL (11.5-15.3) 02/11/22 02:53 Hct 41.9 % (37.0-47.0) 02/11/22 02:53 MCV 97.0 fl (81-99) 02/11/22 02:53 MCH 31.7 pg (28.0-34.0) 02/11/22 02:53 MCHC 32.7 g/dL (30.0-36.0) 02/11/22 02:53 RDW 14.5 % (12.1-15.1) 02/11/22 02:53 Plt Count 183 10^3/cmm (130-400) 02/11/22 02:53 MPV 11.5 fL (7.4-10.4) H 02/11/22 02:53 Neut % (Auto) 60.3 % 02/11/22 02:53 Lymph % (Auto) 26.9 % 02/11/22 02:53 Barron % (Auto) 11.2 % 02/11/22 02:53 Eos % (Auto) 1.0 % 02/11/22 02:53 Baso % (Auto) 0.3 % 02/11/22 02:53 Neut # (Auto) 3.48 10^3/uL (1.8-7.7) 02/11/22 02:53 Lymph # (Auto) 1.6 10^3/uL (0.8-4.8) 02/11/22 02:53 Barron # (Auto) 0.7 10^3/uL (0.2-0.9) 02/11/22 02:53 Eos # (Auto) 0.1 10^3/uL (0.0-0.8) 02/11/22 02:53 Baso # (Auto) 0.0 10^3/uL (0.0-0.1) 02/11/22 02:53 Nucleated RBC % (auto) 0 % 02/11/22 02:53 Nucleated RBCs # 0.0 /100WBC 02/11/22 02:53 D-Dimer 1.79 ug/mIFEU (0-0.59) H 02/07/22 20:02 Specimen Type Arterial 02/07/22 17:36 Sample Site Radial, left 02/07/22 17:36 ABG pH 7.36 (7.35-7.45) 02/07/22 17:36 ABG pCO2 41.2 mmHg (35-45) 02/07/22 17:36 ABG pO2 75.8 mmHg (80.0-100.0) L 02/07/22 17:36 ABG HCO3 23.4 mmol/L (22-26) 02/07/22 17:36 ABG Base Excess -1.9 mmol/L (-2.0-2.0) 02/07/22 17:36 Nitesh Test Pos 02/07/22 17:36 Hematocrit 39.4 % (37-47) 02/07/22 17:36 O2 Delivery Device Nc 02/07/22 17:36 O2 Liters/Min 2.0 % 02/07/22 17:36 FiO2 28.0 % 02/07/22 17:36 Technology Program Manager ID Ed 02/07/22 17:36 Sodium 136 mmol/L (136-145) 02/11/22 02:53 Potassium 3.3 mmol/L (3.5-5.1) L 02/11/22 02:53 Chloride 95 mmol/L (98-107) L 02/11/22 02:53 Carbon Dioxide 26 mmol/L (22-29) 02/11/22 02:53 Anion Gap 18.3 (5-19) 02/11/22 02:53 BUN 43 mg/dL (8-23) H 02/11/22 02:53 Creatinine 1.1 mg/dL (0.5-0.9) H 02/11/22 02:53 GFR Calculation 49.2 mL/min (90-130) L 02/11/22 02:53 Glucose 106 mg/dL (65-115) 02/11/22 02:53 POC Glucose 104 mg/dL (70-110) 02/10/22 06:15 Estimat Average Glucose 103 02/07/22 13:33 Hemoglobin A1c 5.2 % (4.0-6.0) 02/07/22 13:33 Calculated Osmolality 293 mOsm/kg (285-295) 02/11/22 02:53 Calcium 9.6 mg/dL (8.5-10.5) 02/11/22 02:53 Phosphorus 4.5 mg/dL (2.5-4.5) 02/08/22 04:57 Magnesium 1.7 mg/dL (1.7-2.3) 02/08/22 04:57 Iron 16 ug/dL (37-145) L 02/08/22 04:57 TIBC 326 mcg/dl 02/08/22 04:57 % Saturation 4.9 % (20-50) L 02/08/22 04:57 Unsat Iron Binding 310 ug/dL (112-347) 02/08/22 04:57 Total Bilirubin 0.6 mg/dL (0.15-1.2) 02/11/22 02:53 AST 64 U/L (0-32) H 02/11/22 02:53 ALT 28 U/L (0-33) 02/11/22 02:53 Alkaline Phosphatase 111 U/L (35-105) H 02/11/22 02:53 Troponin T Baseline 29 ng/L (0-10) H 02/07/22 13:33 Troponin T 120 Minute 29.51 ng/L (0-10) H 02/07/22 15:40 Delta Troponin T 0.51 ABS# (0-10) 02/07/22 15:40 Troponin T Hi Sens 6Hr 52.34 ng/L (0-10) H 02/07/22 20:02 Troponin T Hi Sens 6Hr Delta 23.34 ng/L (0-12) H* 02/07/22 20:02 C-Reactive Protein 145.2 mg/L (0.0-4.9) H 02/08/22 04:57 NT-Pro-B Natriuret Pep 1620 pg/mL (0-125) H 02/07/22 13:33 Total Protein 7.5 g/dL (6.6-8.7) 02/11/22 02:53 Albumin 3.9 g/dL (3.5-5.2) 02/11/22 02:53 Globulin 3.6 g/dL (1.3-4.6) 02/11/22 02:53 Triglycerides 191 mg/dL (0-150) H 02/09/22 05:05 Cholesterol 188 mg/dL (0-200) 02/09/22 05:05 LDL Cholesterol, Calc 97 mg/dL (50-129) 02/09/22 05:05 Total VLDL Cholesterol 38 mg/dL (0-30) H 02/09/22 05:05 HDL Cholesterol 53 mg/dL (60-100) L 02/09/22 05:05 Cholesterol/HDL Ratio 3.55 mg/dL (0.0-4.40) 02/09/22 05:05 Procalcitonin 2.41 ng/mL (0-0.5) H 02/08/22 04:57 TSH 0.59 uIU/mL (0.27-4.20) 02/08/22 04:57 Urine Color Yellow (Yellow) 02/07/22 14:39 Urine Appearance Clear (CLEAR) 02/07/22 14:39 Urine pH 5.0 (5-7) 02/07/22 14:39 Ur Specific [place] 1.010 (1.005-1.030) 02/07/22 14:39 Urine Protein Negative (Negative) 02/07/22 14:39 Urine Glucose (UA) Negative (Normal) 02/07/22 14:39 Urine Ketones Negative (Negative) 02/07/22 14:39 Urine Blood Negative (Negative) 02/07/22 14:39 Urine Nitrate Positive 02/07/22 14:39 Urine Bilirubin Negative (Negative) 02/07/22 14:39 Urine Urobilinogen 0.2 mg/dL (Negative) 02/07/22 14:39 Ur Leukocyte Esterase Negative (Negative) 02/07/22 14:39 Urine RBC None /hpf (0-2) 02/07/22 14:39 Urine WBC 0-4 /hpf (0-5) H 02/07/22 14:39 Ur Squamous Epith Cells None /hpf (0-5) 02/07/22 14:39 Amorphous Sediment Not Reportable 02/07/22 14:39 Urine Bacteria 2+ /hpf (NONE) H 02/07/22 14:39 Ur Random Sodium 15 mmol/L 02/07/22 14:30 Ur Random Potassium 29 mmol/L 02/07/22 14:30 Ur Random Chloride 27 mmol/L 02/07/22 14:30 Urine Creatinine 78 mg/dL (28-217) 02/07/22 14:30 Coronavirus 229E (PCR) Not detected (NOT DETECT) 02/07/22 14:19 Parainfluenza 1 (PCR) Detected (NOT DETECT) A 02/07/22 16:49 Parainfluenza 2 (PCR) Not detected (NOT DETECT) 02/07/22 16:49 Parainfluenza 3 (PCR) Not detected (NOT DETECT) 02/07/22 16:49 Parainfluenza 4 (PCR) Not detected (NOT DETECT) 02/07/22 16:49 SARS-CoV-2 (PCR) Not detected (NOT DETECT) 02/07/22 14:19 Vitals Last Vital Signs Temp 98.1 F 02/11/22 07:49 Pulse 69 02/11/22 08:00 Resp 16 02/11/22 08:00 BP 145/77 02/11/22 07:49 Pulse Ox 93 02/11/22 08:00 O2 Del Method 02/11/22 08:00 O2 Flow Rate 1.5 02/10/22 20:17 FiO2 32 02/09/22 15:56 Discharge Plan Discharge Patient Disposition: Home Condition: Stable Prescriptions: New cefaclor 500 mg capsule 500 mg PO Q12H 3 Days Qty: 6 0RF Continued colchicine 0.6 mg tablet See Rx Instructions PO .COMPLEX Qty: 15 3RF Rx Instructions: take 1 tab 3 times a week on Tue, Tue and Tuesday.. pt instructed to stop if gets diarrhea. PO; omega-3 fatty acids [Fish Oil Concentrate] 1,000 mg capsule 1,000 mg PO DAILY acetaminophen [Tylenol Arthritis Pain] 650 mg tablet extended release 650 mg PO Q12H PRN (Reason: Pain) nitroglycerin [Nitrostat] 0.4 mg tablet, sublingual 0.4 mg SUBLINGUAL Q5M PRN (Reason: chest pain) Qty: 25 3RF multivitamin Tablet 1 tab PO DAILY Tart Alonso Extract 1,000 mg capsule 1,000 mg PO DAILY pregabalin [Lyrica] 75 mg capsule 75 mg PO BID Qty: 60 3RF aspirin [Adult Aspirin Regimen] 81 mg tablet,delayed release (DR/EC) 81 mg PO DAILY clopidogrel 75 mg tablet 75 mg PO DAILY Qty: 90 3RF pantoprazole 40 mg tablet,delayed release (DR/EC) See Rx Instructions .ROUTE .COMPLEX Qty: 180 0RF Dose Instruction: TAKE 1 TABLET BY MOUTH TWICE DAILY Rx Instructions: TAKE 1 TABLET BY MOUTH TWICE DAILY allopurinol 100 mg tablet 400 mg PO DAILY Qty: 120 5RF Rx Instructions: TAKE 4 TABLETS BY MOUTH DAILY sertraline 100 mg tablet 100 mg PO Q24H 90 Days Qty: 90 2RF isosorbide mononitrate 60 mg tablet extended release 24 hr 60 mg PO DAILY Qty: 90 3RF potassium chloride 10 mEq capsule, extended release See Rx Instructions .ROUTE .COMPLEX Qty: 30 0RF Dose Instruction: TAKE 1 CAPSULE BY MOUTH EVERY DAY Rx Instructions: TAKE 1 CAPSULE BY MOUTH EVERY DAY alprazolam 0.5 mg Tablet 0.5 mg PO DAILY PRN (Reason: Anxiety) isosorbide mononitrate 30 mg tablet extended release 24 hr 30 mg PO BEDTIME atorvastatin 40 mg tablet 40 mg PO DAILY Changed metoprolol tartrate 25 mg tablet 12.5 mg PO BID Qty: 180 1RF Rx Instructions: TAKE 1 TABLET BY MOUTH TWICE DAILY furosemide 40 mg tablet 40 mg PO DAILY Qty: 180 3RF Discontinued lisinopril 20 mg tablet 20 mg PO DAILY Qty: 90 1RF prednisone 5 mg tablet See Rx Instructions .ROUTE .COMPLEX Qty: 30 0RF Dose Instruction: TAKE 1 TABLET BY MOUTH DAILY NEEDED FOR JOINT PAIN OR FLARE Rx Instructions: TAKE 1 TABLET BY MOUTH DAILY NEEDED FOR JOINT PAIN OR FLARE Discharge Orders: Discharge Order (Routine); Ordered 02/11/22 Ordered By: Paul Manuel Referrals: Derek Dowd DO [Primary Care Provider] - 7-10 days Discharge Diet: Regular Discharge Activity: Resume usual activity and Increase activity as tolerated Patient Instructions: Opioid Safety Activity Restrictions/Additional Instructions: Please repeat BMP in 1 week. You were given antibiotic which is cefaclor. Take twice daily for next 3 days. Do not take lisinopril anymore because of concerns for BERNADETTE and uremia leading to MODERN DANCER symptoms. Lasix has been changed to 40 mg oral daily. Please restrict your oral intake of fluids to around 2 L a day. Discharge Attestations Time Spent in Discharge Care*: greater than 30 min Specific Discharge Activities: educating patient, discussing with pcp/other providers, discussing with case picker/social workers/dc planners, documenting/other paperwork and evaluating patient/reviewing data Status at Discharge: Cognitive status at discharge: cognitively intact , Behavioral status at discharge: cooperative , Functional status at discharge: uses cane/walker , Overall status at discharge: patient is back to baseline Quality Metrics Clinical Quality Measures [ No reported AMI, CVA or VTE this stay] Coding Level of Care Code Acute Chg FW DC note Diagnoses Congestive heart failure I50.33 Heart failure chronicity: acute on chronic Heart failure type: diastolic Cardiomyopathy I25.5 Cardiomyopathy type: ischemic BERNADETTE (acute kidney injury) N17.9 Intracranial atherosclerosis I67.2 Balance disorder R26.89 Cognitive impairment R41.89 Cardiac 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 therapy 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 (BUILDING ENERGY CONSULTANT-D) in place Z95.810 Left bundle branch block I44.7 Vertebral artery stenosis I65.09 Sleep apnea G47.30 Iron deficiency anemia D50.8 Iron deficiency anemia type: inadequate dietary iron intake Parainfluenza infection B34.8
[2022-02-11 11:43] VITALS: BP 122/71; PULSE 69; RESP 16; TEMP 36.6; O2SAT 93
== END 2022-02-11 12:00 | disposition home or self-care (01) | DRG 291 ==
LOC: ER 15:29 → ER IP 17:51 → MEDSURG 20:15
PROVIDERS: Internal Medicine; Admitting Provider Internal Medicine; Emergency Provider Family Medicine; PCP Family Medicine; Visit Provider Student in an Organized Health Care Education/Training Program
DX: I13.0 Hypertensive heart and chronic kidney disease with heart failure and stage 1 through stage 4 chronic kidney disease, or unspecified chronic kidney disease (principal); I50.33 Acute on chronic diastolic (congestive) heart failure; N39.0 Urinary tract infection, site not specified; N17.9 Acute kidney failure, unspecified; N18.30 Chronic kidney disease, stage 3 unspecified; B34.8 Other viral infections of unspecified site; B96.20 Unspecified Escherichia coli [E. coli] as the cause of diseases classified elsewhere; I25.10 Atherosclerotic heart disease of native coronary artery without angina pectoris; Z95.1 Presence of aortocoronary bypass graft; Z95.5 Presence of coronary angioplasty implant and graft; I48.91 Unspecified atrial fibrillation; I70.1 Atherosclerosis of renal artery; D63.1 Anemia in chronic kidney disease; Z95.810 Presence of automatic (implantable) cardiac 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; I25.5 Ischemic cardiomyopathy; K21.9 Gastro-esophageal reflux disease without esophagitis; E78.5 Hyperlipidemia, unspecified; G47.33 Obstructive sleep apnea (adult) (pediatric); I73.9 Peripheral vascular disease, unspecified; D50.9 Iron deficiency anemia, unspecified; I65.09 Occlusion and stenosis of unspecified vertebral artery; I44.7 Left bundle-branch block, unspecified; Z79.02 Long term (current) use of antithrombotics/antiplatelets; Z79.82 Long term (current) use of aspirin; F03.90 Unspecified dementia, unspecified severity, without behavioral disturbance, psychotic disturbance, mood disturbance, and anxiety
CPT/HCPCS: 36415; 36416; 36600; 51702; 70450; 71045; 71275; 80048; 80053; 80061; 81001; 82436; 82570; 82803; 82962; 83036; 83540; 83550; 83735; 83880; 84100; 84133; 84145; 84300; 84443; 84484; 85025; 85378; 86140; 87040; 87070; 87077; 87086; 87186; 87205; 87631; 87635; 87641; 93005; 93306; 94640; 94660; 96361; 96372; 96374; 99285; J0696; J1100; J1644; J1815; J1940; J2405; J3535; J7030; Q9967

== ENCOUNTER 2022-02-18 13:52 | Outpatient (CLI) | payer BC, MEDICARE, SELFPAY ==
[2022-02-18 14:54] LABS: Alanine Aminotransferase 18 U/L (0-33); Albumin Level 4.1 g/dL (3.5-5.2); Alkaline Phosphatase 144 U/L (35-105); Aspartate Amino Transferase 31 U/L (0-32); Blood Urea Nitrogen 27 mg/dL (8-23); Calcium 9.3 mg/dL (8.5-10.5); Carbon Dioxide 25 mmol/L (22-29); Chloride 107 mmol/L (98-107); Globulin 3.1 g/dL (1.3-4.6); Glomerular Filtration Rate 44.5 mL/min (90-130); Glucose 100 mg/dL (65-115); Magnesium 1.7 mg/dL (1.7-2.3); Osmolality Calculated 301 mOsm/kg (285-295); Sodium 143 mmol/L (136-145); Thyroid Stimulating Hormone 2.57 uIU/mL (0.27-4.20); Total Bilirubin 0.5 mg/dL (0.15-1.2); Total Protein 7.2 g/dL (6.6-8.7)
== END 2022-02-18 13:53 | disposition home or self-care (01) ==
LOC: LAB 13:55
PROVIDERS: PCP Family Medicine; Visit Provider Family Medicine
DX: E83.42 Hypomagnesemia (principal); E87.6 Hypokalemia; N17.9 Acute kidney failure, unspecified; T50.2X5A Adverse effect of carbonic-anhydrase inhibitors, benzothiadiazides and other diuretics, initial encounter; Z09 Encounter for follow-up examination after completed treatment for conditions other than malignant neoplasm
CPT/HCPCS: 36415; 80053; 83735; 84443

== ENCOUNTER 2022-03-03 16:11 | Outpatient (CLI) | payer BC, MEDICARE, SELFPAY ==
[2022-03-03 17:03] LABS: Monocytes # 0.7 10^3/uL (0.2-0.9); Nucleated Red Blood Cells % 0 %
[2022-03-03 17:06] LABS: Basophils % 1.1 %; Eosinophils # 0.2 10^3/uL (0.0-0.8); Eosinophils % 5.4 %; Hematocrit 37.3 % (37.0-47.0); Lymphocytes # 1.2 10^3/uL (0.8-4.8); Lymphocytes % 42.5 %; Mean Corpuscular HGB Conc 32.2 g/dL (30.0-36.0); Mean Corpuscular Hemoglobin 31.7 pg (28.0-34.0); Mean Corpuscular Volume 98.7 fl (81-99); Mean Platelet Volume 9.9 fL (7.4-10.4); Monocytes % 25.7 %; Neutrophils % 24.9 %; Platelet Count 209 10^3/cmm (130-400); Red Blood Count 3.78 10^6/uL (4.1-5.3); Red Cell Distribution Width 15.8 % (12.1-15.1); White Blood Count 2.8 10^3/uL (4.0-10.0)
[2022-03-03 17:11] LABS: Add Urine Culture? No; Bacteria Urine 1+ /hpf; Bilirubin Urine Neg (Negative); Blood Urine Neg (Negative); Glucose Urine UA Norm (Normal); Ketones Urine Negative (Negative); Leukocyte Esterase Urine Negative (Negative); Nitrate Urine Negative (Negative); Protein Urine Neg (Negative); Specific Gravity, Urine 1.015 (1.005-1.030); Squamous Epithelial Cell Urine 0-4 /hpf (0-5); Urine Appearance Clear (CLEAR); Urine Color Yellow (Yellow); Urobilinogen Urine Norm (Negative); pH Urine 6 (5-7)
[2022-03-03 18:55] LABS: Alanine Aminotransferase 14 U/L (0-33); Albumin Level 4.1 g/dL (3.5-5.2); Alkaline Phosphatase 147 U/L (35-105); Aspartate Amino Transferase 28 U/L (0-32); Blood Urea Nitrogen 19 mg/dL (8-23); Calcium 9.1 mg/dL (8.5-10.5); Carbon Dioxide 28 mmol/L (22-29); Chloride 100 mmol/L (98-107); Globulin 3.2 g/dL (1.3-4.6); Glomerular Filtration Rate 40.6 mL/min (90-130); Glucose 91 mg/dL (65-115); Magnesium 1.6 mg/dL (1.7-2.3); Osmolality Calculated 288 mOsm/kg (285-295); Sodium 138 mmol/L (136-145); Total Bilirubin 0.8 mg/dL (0.15-1.2); Total Protein 7.3 g/dL (6.6-8.7); Uric Acid 6.1 mg/dL (2.4-5.7)
[2022-03-04 01:02] LABS: Magnesium 1.7 mg/dL (1.7-2.3)
== END 2022-03-03 16:12 | disposition home or self-care (01) ==
LOC: LAB 16:29
PROVIDERS: PCP Family Medicine; Visit Provider Family Medicine
DX: E83.42 Hypomagnesemia (principal); E87.6 Hypokalemia; N18.9 Chronic kidney disease, unspecified; Z79.899 Other long term (current) drug therapy; I50.9 Heart failure, unspecified; R53.83 Other fatigue
CPT/HCPCS: 36415; 80053; 81001; 83735; 84550; 85025; 87086

== ENCOUNTER 2022-03-05 16:31 | Outpatient (CLI) | payer BC, MEDICARE, SELFPAY ==
[2022-03-05 18:01] LABS: Ferritin 60 ng/mL (15-150); Iron 66 ug/dL (37-145); Percent Saturation 19.5 % (20-50); Total Iron Binding Capacity 338 mcg/dl; Transferrin 296 mg/dL (200-360); Unsaturated Iron Binding 272 ug/dL (112-347)
[2022-03-05 18:04] LABS: LAB Peripheral Smear Sent for Review
== END 2022-03-05 16:32 | disposition home or self-care (01) ==
PROVIDERS: PCP Family Medicine; Visit Provider Family Medicine
DX: D70.9 Neutropenia, unspecified (principal); N18.9 Chronic kidney disease, unspecified
CPT/HCPCS: 36415; 80503; 82728; 83540; 83550; 84466; 87040

== ENCOUNTER 2022-03-10 08:07 | Oncology outpatient (recurring) (ONCR) | payer BC, MEDICARE, SELFPAY ==
[2022-03-10 09:38] LABS: Basophils # 0.1 10^3/uL (0.0-0.1); Basophils % 1.1 %; Eosinophils # 0.1 10^3/uL (0.0-0.8); Eosinophils % 1.9 %; Hemoglobin 12.1 g/dL (11.5-15.3); Lymphocytes # 1.4 10^3/uL (0.8-4.8); Lymphocytes % 18.9 %; Mean Corpuscular HGB Conc 31.8 g/dL (30.0-36.0); Mean Corpuscular Hemoglobin 31.3 pg (28.0-34.0); Mean Corpuscular Volume 98.4 fl (81-99); Monocytes # 0.7 10^3/uL (0.2-0.9); Monocytes % 9.3 %; Neutrophils # 5.14 10^3/uL (1.8-7.7); Nucleated Red Blood Cells % 0 %; Platelet Count 249 10^3/cmm (130-400); Red Blood Count 3.86 10^6/uL (4.1-5.3); White Blood Count 7.6 10^3/uL (4.0-10.0)
[2022-03-10 09:39] LABS: Urine Appearance Clear (CLEAR); Urine Color Yellow (Yellow)
[2022-03-10 09:40] LABS: Add Urine Culture? No; Bilirubin Urine Neg (Negative); Blood Urine Neg (Negative); Glucose Urine UA Norm (Normal); Ketones Urine Negative (Negative); Leukocyte Esterase Urine Negative (Negative); Nitrate Urine Negative (Negative); Protein Urine Neg (Negative); Specific Gravity, Urine 1.015 (1.005-1.030); Urobilinogen Urine Norm (Negative); pH Urine 5 (5-7)
[2022-03-10 09:43] LABS: Erythrocyte Sedimentation Rate 22 mm/hr (0-15)
[2022-03-10 09:59] LABS: Alanine Aminotransferase 13 U/L (0-33); Albumin Level 4.5 g/dL (3.5-5.2); Alkaline Phosphatase 148 U/L (35-105); Aspartate Amino Transferase 32 U/L (0-32); Blood Urea Nitrogen 24 mg/dL (8-23); Calcium 9.7 mg/dL (8.5-10.5); Carbon Dioxide 25 mmol/L (22-29); Chloride 103 mmol/L (98-107); Globulin 2.8 g/dL (1.3-4.6); Glucose 105 mg/dL (65-115); Osmolality Calculated 292 mOsm/kg (285-295); Sodium 139 mmol/L (136-145); Total Bilirubin 0.8 mg/dL (0.15-1.2); Total Protein 7.3 g/dL (6.6-8.7)
[2022-03-10 10:05] LABS: LAB Peripheral Smear Sent for Review
[2022-03-10 10:49] LABS: Vitamin B12 > 2000 pg/mL (232-1245)
== END 2022-04-07 23:59 | disposition home or self-care (01) ==
PROVIDERS: PCP Family Medicine; Visit Provider Internal Medicine Medical Oncology
DX: D70.9 Neutropenia, unspecified (principal); B34.8 Other viral infections of unspecified site; D50.9 Iron deficiency anemia, unspecified; Z79.899 Other long term (current) drug therapy
CPT/HCPCS: 36415; 80053; 81001; 82607; 85025; 85651; 86140; 99204

== ENCOUNTER → 2022-03-15 11:02 | Outpatient (BNVA) | payer BC, MEDICARE, SELFPAY | PROVIDERS: PCP Family Medicine; Visit Provider Nurse Practitioner Family | DX: N18.9 Chronic kidney disease, unspecified (principal); N39.0 Urinary tract infection, site not specified | CPT/HCPCS: 81003; 87086; 99213 ==

== ENCOUNTER 2022-03-24 10:50 | Inpatient (IN) | payer BC, MEDICARE, SELFPAY ==
[2022-03-24] VITALS (15 sets, daily range): BP systolic 116–189; BP diastolic 63–115; PULSE 70–97; RESP 14–23; TEMP 36.4; O2SAT 93–97; BMI 32.8; BMI 33.2
--- NOTE | 2022-03-24 10:59 | XR_ITS ---
WS: [id number] Exam: XR chest 1V portable [id number] Date/Time of Exam: 03/24/2022 11:14 AM Reason For Exam: dyspnea/cough Comparison 02/07/2022. The lungs are clear and fully expanded. Mild cardiac enlargement unchanged. Signs of previous CABG adam rgery. A cardiac pacer superimposes the left chest. The mediastinum is normal in contour. Bony struct ures are intact. XR/XR chest 1V portable [id number] IMPRESSION: 1. Mild cardiac enlargement unchanged. No acute process noted.
--- NOTE | 2022-03-24 11:14 | ECG_ITS ---
[facility] Test Date: 2022-03-24 Pat Name: Essie Alejandre Department: Room: Gender: Female [employer]: : [id number] Requested By: Vincent Peña Order Number: [id number] Jj MD: Kel Molina M.D. Measurements Intervals [place] Rate: 73 P: 0 AL: 0 QRS: -71 QRSD: 158 T: 110 QT: 491 QTc: 542 Interpretive Statements ELECTRONIC VENTRICULAR PACEMAKER Compared to ECG 02/07/2022 17:02:46 No significant changes Electronically Signed On 03-26-2022 6:28:29 SHELL TRIM OPERATOR by Kel Molina M.D. [id number]
[2022-03-24 11:34] LABS: Basophils % 0.5 %; Eosinophils # 0.2 10^3/uL (0.0-0.8); Hematocrit 33.7 % (37.0-47.0); Hemoglobin 10.7 g/dL (11.5-15.3); Lymphocytes # 1.4 10^3/uL (0.8-4.8); Lymphocytes % 16.1 %; Mean Corpuscular HGB Conc 31.8 g/dL (30.0-36.0); Mean Corpuscular Hemoglobin 31.9 pg (28.0-34.0); Mean Corpuscular Volume 100.6 fl (81-99); Mean Platelet Volume 10.5 fL (7.4-10.4); Monocytes # 0.8 10^3/uL (0.2-0.9); Neutrophils # 6.38 10^3/uL (1.8-7.7); Neutrophils % 71.9 %; Nucleated Red Blood Cells % 0 %; Platelet Count 198 10^3/cmm (130-400); Red Blood Count 3.35 10^6/uL (4.1-5.3); Red Cell Distribution Width 15.7 % (12.1-15.1); White Blood Count 8.9 10^3/uL (4.0-10.0)
--- NOTE | 2022-03-24 11:34 | W.ED.CHESTPA ---
HPI - Chest Pain General: Chief Complaint: Shortness of Breath/Dyspnea Stated Complaint: sob Time Seen by Provider: 03/24/22 10:58 Source: patient Mode of arrival: ambulatory History of Present Illness: 71-year-old female with a known history of coronary disease presents emergency room with complaint of chest pain that began while at rest resolved with nitro she still has a little bit of chest discomfort. She is also been orthopneic just generally not feeling well. Slight nausea she did not have any diaphoresis. She has a known history of coronary artery disease with a previous coronary bypass graft she has not had any evaluation since then. MD complaint: chest pain Pertinent past history: coronary artery disease Onset: during rest Pain location: left chest Severity: moderate Quality: tightness, aching and heaviness Relieving factors: nitroglycerin Exacerbating factors: nothing Associated symptoms: Deny abdominal pain, diaphoresis, dyspnea, fever(s), leg edema, nausea, palpitations, sense of impending doom, syncope or vomiting Treatment prior to arrival: none Review of Systems Const: Denies: fever(s), chills or diaphoresis ENMT: Denies: throat pain, ear or mastoid pain, nasal discharge or nasal congestion Card: Reports: chest pain, edema, swelling of feet/ankles, dyspnea on exertion and orthopnea; Denies: palpitations, irregular heart rhythm or syncope Resp: Reports: non-productive cough; Denies: dyspnea or productive cough GI: Denies: abdominal pain, nausea or vomiting : Denies: flank pain, difficulty voiding, dysuria, urinary frequency or urinary urgency Skin/Breast: Denies: rash or pruritus PFSH ED PFSH: Medical History Acute cystitis without hematuria Anticoagulant long-term use Atrial fibrillation Balance disorder Cardiac 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 therapy 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 (STEAM PAN SPONGER-D) in place Cardiomyopathy CHF (congestive heart failure) Chronic renal insufficiency, stage II (mild) Chronic tophaceous gout of both hands CKD (chronic kidney disease) stage 3, GFR 30-59 ml/min Cognitive impairment GERD (gastroesophageal reflux disease) Gout HTN (hypertension) Hyperlipidemia Intracranial atherosclerosis Iron deficiency anemia Left bundle branch block MRSA carrier BASIA (obstructive sleep apnea) PAD (peripheral artery disease) Recurrent UTI Renal artery stenosis Right internal carotid artery aneurysm Sleep apnea Vertebral artery stenosis Vertebrobasilar insufficiency Surgical History H/O cardiac radiofrequency ablation S/P angioplasty with stent S/P appendectomy S/P CABG (coronary artery bypass graft) S/P section S/P hysterectomy S/P ICD (internal cardiac 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) procedure Status post aorto-coronary artery bypass graft Status post tubal ligation Family History Father , AT AGE 65 Hyperlipidemia CAD (coronary artery disease) Hypertension Rheumatoid arthritis Mother , AT AGE 65 Hyperlipidemia CAD (coronary artery disease) Hypertension Diabetes Sister Hyperlipidemia CAD (coronary artery disease) Hypertension Diabetes Other Cancer Social History Smoking and tobacco status: never smoked Second hand smoke exposure: No Alcohol intake: never Desire information about alcohol rehabilitation?: No Counseling given: No Desire information about substance/drug rehabilitation?: No Counseling given: No Marital status: Current occupational status: retired History of recent travel: No Female Reproductive History: Spontaneous abortions: No Physical Exam Const: COMMON NORMALS: no acute distress GENERAL APPEARANCE: cooperative and comfortable ORIENTATION/CONSCIOUSNESS: Yes awake, Yes oriented to person, Yes oriented to place and Yes oriented to time HENMT: COMMON NORMALS: normocephalic, atraumatic and hearing grossly normal bilaterally HEAD & SCALP: normocephalic and atraumatic Resp: COMMON NORMALS: normal respiratory effort, No retractions and No use of accessory muscles AUSCULTATION: crackles Cardio: COMMON NORMALS: regular rate, regular rhythm and No murmurs present (Cardio) RATE: regular rate RHYTHM: regular rhythm GI: COMMON NORMALS: Soft to palpation and No hepatosplenomegaly present AUSCULTATION: Yes normoactive bowel sounds PALPATION: Yes Soft to palpation, No Tenderness to palpation present (GI), No Guarding due to palpation present (GI) and Yes No hepatosplenomegaly present : COMMON NORMALS: Yes no CVA tenderness BLADDER/KIDNEY EXAM: Yes no CVA tenderness Back/Pelvis: COMMON NORMALS: no CVA tenderness Extremity: COMMON NORMALS: normal to inspection, capillary refill normal and no calf tenderness GENERAL: Yes edema Neuro: SENSORIUM/ORIENTATION: Yes oriented to person, Yes oriented to place and Yes oriented to time Skin: COMMON NORMALS: no rashes or lesions noted GENERAL SKIN EXAM: no rashes or lesions noted Course Vital Signs: Vital signs: Vital Signs Temperature 97.6 F 03/24/22 11:03 Pulse Rate 70 03/24/22 14:30 Respiratory Rate 14 03/24/22 14:30 Blood Pressure 164/103 03/24/22 14:30 Pulse Oximetry 95 03/24/22 14:30 Oxygen Delivery Me thod 03/24/22 11:03 MDM - Chest Pain Medical Decision Making Her headPatient is elevated BNP and is symptomatic with shortness of breath she did take some Lasix morning gave an additional 40 IV. History of coronary artery disease is very concerning male light of these new episodes of chest pain at rest that respond to nitro. Her EKG is paced we cannot really draw anything from that her troponin is 165 I do not have a baseline to compare to. Given all these factors will place patient on observation for further evaluation. Discussed with hospitalist orders written Medical Records I reviewed the patient's medical records. Lab Data I reviewed the patient's lab results. : 03/24/22 11:30 03/24/22 11:30 Radiology Impressions Chest X-Ray 03/24/22 10:59 IMPRESSION: 1. Mild cardiac enlargement unchanged. No acute process noted. Laboratory Results WBC 8.9 10^3/uL (4.0-10.0) 03/24/22 11:30 RBC 3.35 10^6/uL (4.1-5.3) L 03/24/22 11:30 Hgb 10.7 g/dL (11.5-15.3) L 03/24/22 11:30 Hct 33.7 % (37.0-47.0) L 03/24/22 11:30 MCV 100.6 fl (81-99) H 03/24/22 11:30 MCH 31.9 pg (28.0-34.0) 03/24/22 11:30 MCHC 31.8 g/dL (30.0-36.0) 03/24/22 11:30 RDW 15.7 % (12.1-15.1) H 03/24/22 11:30 Plt Count 198 10^3/cmm (130-400) 03/24/22 11:30 MPV 10.5 fL (7.4-10.4) H 03/24/22 11:30 Neut % (Auto) 71.9 % 03/24/22 11:30 Lymph % (Auto) 16.1 % 03/24/22 11:30 [place] % (Auto) 9.0 % 03/24/22 11:30 Eos % (Auto) 2.0 % 03/24/22 11:30 Baso % (Auto) 0.5 % 03/24/22 11:30 Neut # (Auto) 6.38 10^3/uL (1.8-7.7) 03/24/22 11:30 Lymph # (Auto) 1.4 10^3/uL (0.8-4.8) 03/24/22 11:30 [place] # (Auto) 0.8 10^3/uL (0.2-0.9) 03/24/22 11:30 Eos # (Auto) 0.2 10^3/uL (0.0-0.8) 03/24/22 11:30 Baso # (Auto) 0.0 10^3/uL (0.0-0.1) 03/24/22 11:30 Nucleated RBC % (auto) 0 % 03/24/22 11:30 Nucleated RBCs # 0.0 /100WBC 03/24/22 11:30 Sodium 142 mmol/L (136-145) 03/24/22 11:30 Potassium 3.8 mmol/L (3.5-5.1) 03/24/22 11:30 Chloride 104 mmol/L (98-107) 03/24/22 11:30 Carbon Dioxide 24 mmol/L (22-29) 03/24/22 11:30 Anion Gap 17.8 (5-19) 03/24/22 11:30 BUN 21 mg/dL (8-23) 03/24/22 11:30 Creatinine 1.0 mg/dL (0.5-0.9) H 03/24/22 11:30 GFR Calculation 55.0 mL/min (90-130) L 03/24/22 11:30 Glucose 109 mg/dL (65-115) 03/24/22 11:30 Calculated Osmolality 298 mOsm/kg (285-295) H 03/24/22 11:30 Calcium 9.5 mg/dL (8.5-10.5) 03/24/22 11:30 Total Bilirubin 0.7 mg/dL (0.15-1.2) 03/24/22 11:30 AST 40 U/L (0-32) H 03/24/22 11:30 ALT 16 U/L (0-33) 03/24/22 11:30 Alkaline Phosphatase 163 U/L (35-105) H 03/24/22 11:30 Troponin T Baseline 152 ng/L (0-10) H* 03/24/22 11:30 Troponin T 120 Minute 166.8 ng/L (0-10) H 03/24/22 14:17 Delta Troponin T 14.8 ABS# (0-10) H* 03/24/22 14:17 NT-Pro-B Natriuret Pep 5052 pg/mL (0-125) H 03/24/22 11:30 Total Protein 6.9 g/dL (6.6-8.7) 03/24/22 11:30 Albumin 4.0 g/dL (3.5-5.2) 03/24/22 11:30 Globulin 2.9 g/dL (1.3-4.6) 03/24/22 11:30 Discharge Plan Discharge Patient Disposition: Admitted As Inpatient Clinical Impression: CHF (congestive heart failure), Elevated troponin I level Condition: Stable Coding Level of Care Code ED Chemical Plant Operator Supervisor for Dario Fwd Exam Comprehensive
[2022-03-24] MEDS: FUROsemide 10 mg/mL SDV 4mL 40 MG IVP (11:40)
[2022-03-24 11:51] LABS: Alanine Aminotransferase 16 U/L (0-33); Alkaline Phosphatase 163 U/L (35-105); Blood Urea Nitrogen 21 mg/dL (8-23); Calcium 9.5 mg/dL (8.5-10.5); Carbon Dioxide 24 mmol/L (22-29); Chloride 104 mmol/L (98-107); Globulin 2.9 g/dL (1.3-4.6); Glucose 109 mg/dL (65-115); Osmolality Calculated 298 mOsm/kg (285-295); Sodium 142 mmol/L (136-145); Total Bilirubin 0.7 mg/dL (0.15-1.2); Total Protein 6.9 g/dL (6.6-8.7)
[2022-03-24 11:52] LABS: Anion Gap 17.8 (5-19); Aspartate Amino Transferase 40 U/L (0-32)
[2022-03-24 11:53] LABS: Potassium 3.8 mmol/L (3.5-5.1)
[2022-03-24 12:11] LABS: NT Pro B Type Natriuretic Pept 5052 pg/mL (0-125)
--- NOTE | 2022-03-24 12:20 | ECG_ITS ---
[facility] Test Date: 2022-03-24 Pat Name: Essie Alejandre Department: Room: Gender: Female Camp Director: : 1950 Requested By: Vincent Peña Order Number: [id number] Jj MD: Kel Molina M.D. Measurements Intervals [place] Rate: 69 P: 0 AR: 0 QRS: -69 QRSD: 160 T: 113 QT: 501 QTc: 540 Interpretive Statements ELECTRONIC VENTRICULAR PACEMAKER Compared to ECG 03/24/2022 11:14:46 No significant changes Electronically Signed On 03-26-2022 6:28:19 BLACK PICKLER by Kel Molina M.D. [email or web address] [email or web address] health [email or web address] [id number]
[2022-03-24 12:55] LABS: Troponin(5th) Baseline 152 ng/L (0-10)
[2022-03-24] MEDS: nitroglycerin 1 gm/inch oint Pkt 1 INCH TOPICAL (13:06)
[2022-03-24] MEDS: aspirin 81 mg Chew Tablet 324 MG PO (13:06)
--- NOTE | 2022-03-24 14:13 | P.HP_ITS ---
Providers/Chief Complaint Primary Care Provider: Derek Dowd DO Chief Complaint: sob History of Present Illness Essie Alejandre is a 71 year old female She has extensive history of coronary disease with CABG history of A. fib, renal artery stenosis, chronic kidney disease ischemic cardiomyopathy mixed heart failure, left bundle branch block, sleep apnea, went to the EP and had a 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 placed when she failed ablation for her A. fib.? She is not on any anticoagulating agent because of aneurysm of sentinel resistant vessels she does have chronic dizziness presented to hospital with chief complaint of?shortness of breath, chest pain. Patient is stating that her symptoms started on Tuesday when she was experiencing left-sided chest pain which she describing as achy, she took couple of nitroglycerin which did not help her symptoms next day she experienced similar symptoms, she also noticed radiation of pain from her left arm towards her jaw, her blood pressure has been high as well diastolic blood pressure has been above 100, she decided to come to the hospital for further evaluation In the ER troponins are trending up She was started on ACS protocol At the time of my evaluation she had reproducible chest pain hence I decided to go with stress test fluids Review of Systems Const: Denies: fever(s) Eyes: Denies: change in vision ENMT: Denies: throat pain Card: Reports: chest pain Resp: Denies: dyspnea GI: Denies: abdominal pain : Denies: flank pain Musc: Denies: neck pain Skin/Breast: Denies: rash Neuro: Denies: headache(s) Psych: Denies: anxiety Endo: Denies: polyuria Jerardo/Lymph: Denies: easy bruising All/Imm: Denies: urticaria Medications/Allergies Home Medications Medication Instructions Recorded Confirmed Last Taken Type acetaminophen 650 mg 1,300 mg PO BID 08/13/20 03/24/22 03/24/22 History tablet,extended release (Tylenol Arthritis Pain) multivitamin 1 tab PO QAM 06/08/21 03/24/22 03/24/22 History sour alonso extract 1,000 mg 1,000 mg PO QAM 06/23/21 03/24/22 03/24/22 History capsule (Tart Alonso Extract) atorvastatin 40 mg tablet 40 mg PO QAM 08/26/21 03/24/22 03/24/22 History aspirin 81 mg tablet,delayed 81 mg PO BEDTIME 11/16/21 03/24/22 03/23/22 History release (Adult Aspirin Regimen) alprazolam 0.5 mg tablet 0.5 mg PO DAILY PRN Anxiety 02/07/22 03/24/22 Unknown History pregabalin 75 mg capsule (Lyrica) 75 mg PO BID #60 caps 03/23/22 03/24/22 03/24/22 Rx albuterol sulfate 90 mcg/actuation 2 puff inhalation QID PRN 03/24/22 03/24/22 Unknown History aerosol inhaler Shortness Of Breath allopurinol 100 mg tablet 400 mg PO QAM 03/24/22 03/24/22 03/24/22 History clopidogrel 75 mg tablet 75 mg PO BEDTIME 03/24/22 03/24/22 03/23/22 History furosemide 40 mg tablet 40 mg PO QAM 03/24/22 03/24/22 03/24/22 History isosorbide mononitrate 60 mg 60 mg PO QAM 03/24/22 03/24/22 03/24/22 History tablet,extended release 24 hr metoprolol tartrate 25 mg tablet 25 mg PO BID 03/24/22 03/24/22 03/24/22 History nitroglycerin 0.4 mg sublingual 0.4 mg sublingual Q5M PRN Chest 03/24/22 03/24/22 03/22/22 History tablet (Nitrostat) Pain omega-3 fatty acids 1,000 mg 1,000 mg PO BEDTIME 03/24/22 03/24/22 03/23/22 History capsule pantoprazole 40 mg tablet,delayed 40 mg PO BID 03/24/22 03/24/22 03/24/22 History release potassium chloride 20 mEq 20 meq PO QAM 03/24/22 03/24/22 03/24/22 History tablet,extended release sertraline 100 mg tablet 100 mg PO QAM 03/24/22 03/24/22 03/24/22 History Allergies Allergy/AdvReac Type Severity Reaction Status Date / Time Sulfa (Sulfonamide Allergy hives Verified 03/24/22 11:40 Antibiotics) adhesive tape AdvReac Mild Unknown Verified 03/24/22 11:40 PFSH Acute PFSH: Medical History Acute cystitis without hematuria Anticoagulant long-term use Atrial fibrillation Balance disorder Cardiac 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 therapy 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 (SEMICONDUCTOR DEVELOPMENT TECHNICIAN-D) in place Cardiomyopathy CHF (congestive heart failure) Chronic renal insufficiency, stage II (mild) Chronic tophaceous gout of both hands CKD (chronic kidney disease) stage 3, GFR 30-59 ml/min Cognitive impairment GERD (gastroesophageal reflux disease) Gout HTN (hypertension) Hyperlipidemia Intracranial atherosclerosis Iron deficiency anemia Left bundle branch block MRSA carrier BASIA (obstructive sleep apnea) PAD (peripheral artery disease) Recurrent UTI Renal artery stenosis Right internal carotid artery aneurysm Sleep apnea Vertebral artery stenosis Vertebrobasilar insufficiency Surgical History H/O cardiac radiofrequency ablation S/P angioplasty with stent S/P appendectomy S/P CABG (coronary artery bypass graft) S/P section S/P hysterectomy S/P ICD (internal cardiac 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) procedure Status post aorto-coronary artery bypass graft Status post tubal ligation Family History Father , AT AGE 65 Hyperlipidemia CAD (coronary artery disease) Hypertension Rheumatoid arthritis Mother , AT AGE 65 Hyperlipidemia CAD (coronary artery disease) Hypertension Diabetes Sister Hyperlipidemia CAD (coronary artery disease) Hypertension Diabetes Other Cancer Social History Smoking and tobacco status: never smoked Second hand smoke exposure: No Alcohol intake: never Desire information about alcohol rehabilitation?: No Counseling given: No Desire information about substance/drug rehabilitation?: No Counseling given: No Marital status: Current occupational status: retired History of recent travel: No Female Reproductive History: Spontaneous abortions: No Vitals/I&O/Wt Last Vital Signs Temp 97.6 F 03/24/22 11:03 Pulse 71 03/24/22 12:00 Resp 18 03/24/22 11:36 BP 139/80 03/24/22 12:00 Pulse Ox 95 03/24/22 12:00 O2 Del Method 03/24/22 11:03 Weight last 48 hrs Weight 89.358 kg Physical Exam Narrative: Patient is endorsing reproducible chest pain Hemodynamically stable Awake and alert Nonfocal neuro exam Mild signs of fluid overloaded Abdomen soft however distended Pleasant and cooperative EOMI, PERRLA Heart rate in 70s S1, S2, mild signs of fluid overload Data 03/25/22 04:48 03/25/22 06:28 A&P Assessment and plan (1) CHF (congestive heart failure): (2) NSTEMI (non-ST elevated myocardial infarction): (3) Atrial fibrillation: (4) S/P CABG (coronary artery bypass graft): (5) H/O cardiac radiofrequency ablation: (6) S/P ICD (internal cardiac 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) procedure: Plan NSTEMI Start ACS protocol No active chest pain Hemodynamically stable Cardiac diet Full code Troponin trending up At the time of evaluation she had reproducible chest pain she was made to proceed with cardiac stress test first We will make her n.p.o. after midnight Patient in agreement Full code Cardiac diet Acute diastolic CHF exacerbation BNP is high Mild signs of fluid overload Low-dose Lasix Replenish magnesium Considering reproducible chest pain we will check D-dimer Attestations Medical Necessity Statement*: Anticipating discharge within 48 hours Time Spent in Patient Care: 40 Coding Level of Care Code Acute Clothing Busheler for g Fwd Diagnoses CHF (congestive heart failure) I50.9 NSTEMI (non-ST elevated myocardial infarction) I21.4 Atrial fibrillation I48.91 S/P CABG (coronary artery bypass graft) Z95.1 H/O cardiac radiofrequency ablation Z98.890 S/P ICD (internal cardiac 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) procedure Z95.810
--- NOTE | 2022-03-24 14:15 | ECG_ITS ---
[facility] Test Date: 2022-03-24 Pat Name: Essie Alejandre Department: Room: Gender: Female City Library Director: : 1950 Requested By: Vincent Peña Order Number: [id number] Jj MD: Kel Molina M.D. Measurements Intervals [place] Rate: 69 P: 0 [place]: 0 QRS: -70 QRSD: 153 T: 111 QT: 472 QTc: 508 Interpretive Statements ELECTRONIC VENTRICULAR PACEMAKER Compared to ECG 03/24/2022 12:20:40 No significant changes Electronically Signed On 03-26-2022 6:35:38 SHERIFF DETECTIVE by Kel Molina M.D. [email or web address] [email or web address] [id number]
[2022-03-24 14:49] LABS: Troponin 5 2HR 166.8 ng/L (0-10)
[2022-03-24 14:50] LABS: Troponin 5 2HR Delta 14.8 ABS# (0-10)
--- NOTE | 2022-03-24 14:51 | PC.NURSE ---
PHYSICIAN NOTIFIED OF CRITICAL LAB RESULTS 2HR TROP 166.8 AND DELTA TROP 14.8 NO VERBAL ORDERS GIVEN AT THIS TIME.
[2022-03-24] MEDS: enoxaparin 100 mg/mL Syringe 90 MG SUBCUT (15:11)
[2022-03-24] MEDS: clopidogrel 300 mg Tablet PO (15:11)
--- NOTE | 2022-03-24 17:07 | ECG_ITS ---
[facility] Test Date: 2022-03-25 Pat Name: Essie Alejandre Department: Room: 111 Gender: Female Endocrinology Specialist: : 1950 Requested By: Nevaeh Bates Order Number: [id number] Jj MD: Kel Molina M.D. Interpretive Statements NAME OF STUDY: LEXISCAN SESTAMIBI STRESS TEST INDICATION: [Unstable Angina] Procedure: At the baseline, the blood pressure was 160/79 mmHg with a heart rate of 71 bpm. The electrocardiogram showed ventricular paced rhythm. The Lexiscan was infused over a period of 20 seconds. A total of 0.4 mg of Lexiscan was infused. The stress phase was continued for a total of 5 minutes. Heart rate was at the end of stress phase was 70 bpm and a blood pressure of 155/82 mmHg. The EKG at the peak infusion revealed no significant changes. Sestamibi was injected 20 seconds after the Lexiscan infusion. Blood pressure at the end of recovery phase was 147/79 mmHg with a heart rate of 71 bpm. Conclusion: 1. Normal EKG response to Lexiscan infusion 2. No Lexiscan induced chest pain or cardiac arrhythmia. 3. Normal blood pressure and heart rate response. 4. Sestamibi/sestamibi perfusion scan pending; see separate report. Electronically Signed On 04-08-2022 16:03:20 TEACHER EMOTIONALLY IMPAIRED by Kel Molina M.D. [id number]
[2022-03-24] MEDS: pregabalin 75 mg Capsule PO (17:21)
[2022-03-24] MEDS: pantoprazole DR 40 mg Tablet PO (17:21)
[2022-03-24] MEDS: metoprolol tartrate 25 mg Tablet PO (17:22)
--- NOTE | 2022-03-24 18:15 | ECG_ITS ---
[facility] Test Date: 2022-03-24 Pat Name: Essie Alejandre Department: Room: 111 Gender: Female Hat Measurer: : 1950 Requested By: Vincent Peña Order Number: [id number] Jj MD: Kel Molina M.D. Measurements Intervals [place] Rate: 69 P: 0 [place]: 0 QRS: -71 QRSD: 161 T: 109 QT: 507 QTc: 546 Interpretive Statements ELECTRONIC VENTRICULAR PACEMAKER Compared to ECG 03/24/2022 14:20:57 No significant changes Electronically Signed On 03-26-2022 6:33:45 CASTING FINISHER by Kel Molina M.D. [email or web address] system [email or web address] [id number]
[2022-03-24 19:50] LABS: Troponin 5 6HR 176.6 ng/L (0-10); Troponin 5 6HR Delta 24.6 ng/L (0-12)
[2022-03-24] MEDS: clopidogrel 75 mg Tablet PO (21:42)
[2022-03-25] VITALS (62 sets, daily range): BP systolic 117–167; BP diastolic 57–91; PULSE 60–81; RESP 14–26; TEMP 36.3–37.3; O2SAT 91–96
[2022-03-25 05:19] LABS: Basophils # 0.1 10^3/uL (0.0-0.1); Basophils % 0.6 %; Eosinophils # 0.3 10^3/uL (0.0-0.8); Eosinophils % 3.9 %; Hematocrit 34.6 % (37.0-47.0); Lymphocytes # 1.8 10^3/uL (0.8-4.8); Lymphocytes % 23.2 %; Mean Corpuscular HGB Conc 31.8 g/dL (30.0-36.0); Mean Corpuscular Volume 100.6 fl (81-99); Monocytes # 0.6 10^3/uL (0.2-0.9); Monocytes % 7.6 %; Neutrophils # 4.95 10^3/uL (1.8-7.7); Neutrophils % 64.2 %; Nucleated Red Blood Cells % 0 %; Platelet Count 217 10^3/cmm (130-400); Red Blood Count 3.44 10^6/uL (4.1-5.3); Red Cell Distribution Width 15.9 % (12.1-15.1); White Blood Count 7.7 10^3/uL (4.0-10.0)
[2022-03-25] MEDS: isosorbide mononitrate ER 60 mg Tablet PO (06:19)
[2022-03-25] MEDS: allopurinol 100 mg Tablet 400 MG PO (06:19)
[2022-03-25] MEDS: atorvastatin 40 mg Tablet PO (06:19)
[2022-03-25] MEDS: sertraline 100 mg Tablet PO (06:19)
[2022-03-25] MEDS: FUROsemide 40 mg Tablet PO (06:19)
[2022-03-25] MEDS: potassium chloride ER 20 mEq Tablet PO (06:20)
[2022-03-25 07:05] LABS: Anion Gap 15.5 (5-19); Blood Urea Nitrogen 23 mg/dL (8-23); Calcium 9.3 mg/dL (8.5-10.5); Carbon Dioxide 25 mmol/L (22-29); Chloride 105 mmol/L (98-107); Glomerular Filtration Rate 71.1 mL/min (90-130); Glucose 108 mg/dL (65-115); Magnesium 1.5 mg/dL (1.7-2.3); Osmolality Calculated 298 mOsm/kg (285-295); Potassium 3.5 mmol/L (3.5-5.1); Sodium 142 mmol/L (136-145)
[2022-03-25] MEDS: regadenoson 0.4 Mg/5 ml Syringe IVP (07:31)
[2022-03-25] MEDS: enoxaparin 100 mg/mL Syringe 90 MG SUBCUT (09:08)
[2022-03-25] MEDS: metoprolol tartrate 25 mg Tablet PO ×2 (09:09→17:42)
[2022-03-25] MEDS: pregabalin 75 mg Capsule PO ×2 (09:09→17:42)
[2022-03-25] MEDS: pantoprazole DR 40 mg Tablet PO ×2 (09:09→17:42)
[2022-03-25] MEDS: morphine IR 15 mg Tablet PO ×2 (09:24→18:51)
--- NOTE | 2022-03-25 12:22 | P.PN_ITS ---
Subjective Subjective: Hemodynamically stable Blood pressure stable No active chest pain Patient has an appointment Dr. Sy tomorrow Dr. Sy has graciously excepted to see her today, stress test showed jodi-infarct ischemia Vitals/I&O/Wt Last Vital Signs Temp 98.1 F 03/25/22 09:07 Pulse 70 03/25/22 11:10 Resp 19 H 03/25/22 11:10 BP 135/82 03/25/22 11:10 Pulse Ox 96 03/25/22 10:08 O2 Del Method 03/25/22 10:08 03/24/22 03/25/22 03/25/22 22:59 06:59 14:59 Intake Total 720 / 720 480 / 1200 Balance 720 / 720 480 / 1200 Weight last 48 hrs Weight 90.463 kg Weight 89.358 kg Physical Exam Narrative: No active signs of fluid overload Awake and alert Hemodynamically stable S1, S2 variable Paced rhythm Abdomen soft Pleasant cooperative , PERRLA Nonfocal neuro exam Pleasant and cooperative Currently on room air Reproducible left-sided chest pain Data 03/25/22 04:48 03/25/22 06:28 A&P Assessment and plan (1) NSTEMI (non-ST elevated myocardial infarction): (2) CHF (congestive heart failure): (3) S/P ICD (internal cardiac 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) procedure: (4) H/O cardiac radiofrequency ablation: (5) HTN (hypertension): (6) BASIA (obstructive sleep apnea): (7) CHF (congestive heart failure): Plan Jodi-infarct ischemia detected on cardiac stress test I have requested Dr. Molina to see her here she has an appointment with him in the clinic tomorrow Hemodynamically stable She still has reproducible chest pain Will request D-dimer Continue Lasix We will follow-up with cardiology for further recommendations Attestations Medical Necessity Statement*: Continue medical management Coding Level of Care Code Acute Furniture Lumber Production Worker for g Fwd Diagnoses NSTEMI (non-ST elevated myocardial infarction) I21.4 CHF (congestive heart failure) I50.9 S/P ICD (internal cardiac 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) procedure Z95.810 H/O cardiac radiofrequency ablation Z98.890 HTN (hypertension) I10 BASIA (obstructive sleep apnea) G47.33 CHF (congestive heart failure) I50.9
--- NOTE | 2022-03-25 12:51 | PC.CHAP ---
Pastoral Care Encounter/Spiritual Assessment Type of Contact [] Declined brass cutter visit [] Patient/Family/Request visit [] Outpatient visit [] Follow-up visit [] Physician referral [] Code/Alert [x] Routine visit [] Staff referral [] Actively dying [] Patient sleeping [] Family support [] [] Out of room [] Palliative care [] [x] Receiving care in room [] Pre-surgical visit [] Trauma [] Long length of stay [] ICU visit [] Other: Relational/Emotional Strength [x] Patient feels connected with others/family/visitors/staff [] Distress [] Loneliness/isolation [] Abandonment Spirituality of Patient [x] Person of Sailaja [] Attends Methodist of their Sailaja [x] Believes in Prayer [] Reads Bible or Hoahaoism materials [] There are Spiritual issues to be addressed Bedspread Cutter Hand Interventions [x] Prayer [x] Active listening [x] Non-anxious presence [x] Spiritual/emotional support [] Crisis/trauma care [x] Spiritual counseling [] Bereavement support [] Provided bereavement packet [] Provided Bible/devotional materials [] Provided toy/stuffed animal, coloring book to patient or family member [] Provided Communion [] Anointing/Caro [] Salvation [x] Completed spiritual assessment [] Other: Impact on Illness or Injury [] Angry [] Fearful [] Anxious [] Often cries [] Exhaustion [] Unable to work [] Unable to attend buddhist [] Unable to walk/stand [] Unable to read [] Unable to drive [] Unable to eat/drink [] Unable to sleep [] Unable to be with family [] Patient intubated [] Other: Summary checking the hear positive feeling has a good attitude going home Time spent with patient 10 mnis
--- NOTE | 2022-03-25 16:44 | P.CONIM_ITS ---
Providers/Reason For Consult Consulting Physician/Specialty*: Kel Molina MD/Cardiology Reason for Consult*: NSTEMI Requesting Physician: Dr Bates Attending Physician: Nevaeh Bates MD Primary Care Provider: Derek Dowd DO History of Present Illness History of Present Illness Essie Alejandre is a 71 year old female with past medical history of atrial fibrillation, CABG in remote past, renal artery stenosis, ischemic cardiomyopathy, left bundle branch block with a 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 in place presented to the hospital secondary to shortness of breath and chest pain symptoms. According to patient she had been noticing chest pain for a while however significant symptoms started about 2 to 3 days prior to admission. It is substernal, bandlike tightness in the chest. It radiated to the back and the left. Initial troponin was 152 that trended up to 176 at 6 hours. Review of Systems Const: Denies: fever(s) Eyes: Denies: change in vision ENMT: Denies: throat pain Card: Reports: chest pain Resp: Denies: dyspnea GI: Denies: abdominal pain : Denies: flank pain Musc: Denies: neck pain Skin/Breast: Denies: rash Neuro: Denies: headache(s) Psych: Denies: anxiety Endo: Denies: polyuria Jerardo/Lymph: Denies: easy bruising All/Imm: Denies: urticaria Medications/Allergies Home Medications Medication Instructions Recorded Confirmed Last Taken Type acetaminophen 650 mg 1,300 mg PO BID 08/13/20 03/24/22 03/24/22 History tablet,extended release (Tylenol Arthritis Pain) multivitamin 1 tab PO QAM 06/08/21 03/24/22 03/24/22 History sour alonso extract 1,000 mg 1,000 mg PO QAM 06/23/21 03/24/22 03/24/22 History capsule (Tart Alonso Extract) atorvastatin 40 mg tablet 40 mg PO QAM 08/26/21 03/24/22 03/24/22 History aspirin 81 mg tablet,delayed 81 mg PO BEDTIME 11/16/21 03/24/22 03/23/22 History release (Adult Aspirin Regimen) alprazolam 0.5 mg tablet 0.5 mg PO DAILY PRN Anxiety 02/07/22 03/24/22 Unknown History pregabalin 75 mg capsule (Lyrica) 75 mg PO BID #60 caps 03/23/22 03/24/22 03/24/22 Rx albuterol sulfate 90 mcg/actuation 2 puff inhalation QID PRN 03/24/22 03/24/22 Unknown History aerosol inhaler Shortness Of Breath allopurinol 100 mg tablet 400 mg PO QAM 03/24/22 03/24/22 03/24/22 History clopidogrel 75 mg tablet 75 mg PO BEDTIME 03/24/22 03/24/22 03/23/22 History furosemide 40 mg tablet 40 mg PO QAM 03/24/22 03/24/22 03/24/22 History isosorbide mononitrate 60 mg 60 mg PO QAM 03/24/22 03/24/22 03/24/22 History tablet,extended release 24 hr metoprolol tartrate 25 mg tablet 25 mg PO BID 03/24/22 03/24/22 03/24/22 History nitroglycerin 0.4 mg sublingual 0.4 mg sublingual Q5M PRN Chest 03/24/22 1 05/24/21 03/22/22 History tablet (Nitrostat) Pain omega-3 fatty acids 1,000 mg 1,000 mg PO BEDTIME 03/24/22 03/24/22 03/23/22 History capsule pantoprazole 40 mg tablet,delayed 40 mg PO BID 03/24/22 03/24/22 03/24/22 History release potassium chloride 20 mEq 20 meq PO QAM 03/24/22 03/24/22 03/24/22 History tablet,extended release sertraline 100 mg tablet 100 mg PO QAM 03/24/22 03/24/22 03/24/22 History Allergies Allergy/AdvReac Type Severity Reaction Status Date / Time Sulfa (Sulfonamide Allergy hives Verified 03/24/22 11:40 Antibiotics) adhesive tape AdvReac Mild Unknown Verified 03/24/22 11:40 Current Medications Generic Name Dose Route Start Last Admin Trade Name Freq PRN Reason Stop Dose Admin Allopurinol 400 mg 03/25/22 06:00 03/25/22 06:19 Allopurinol 100 Mg Tablet PO 400 mg QAM JEREMY Administration Aspirin 81 mg 03/24/22 21:00 03/24/22 21:21 Aspirin 81 Mg Ec Tablet PO Not Given BEDTIME JEREMY Atorvastatin Calcium 40 mg 03/25/22 06:00 03/25/22 06:19 Atorvastatin 40 Mg Tablet PO 40 mg QAM JEREMY Administration Clopidogrel Bisulfate 75 mg 03/24/22 21:00 03/24/22 21:42 Clopidogrel 75 Mg Tablet PO 75 mg BEDTIME JEREMY Administration Furosemide 40 mg 03/25/22 06:00 03/25/22 06:19 Furosemide 40 Mg Tablet PO 40 mg QAM JEREMY Administration Isosorbide Mononitrate 60 mg 03/25/22 06:00 03/25/22 06:19 Isosorbide Mononitrate Er 60 Mg Tablet PO 60 mg QAM JEREMY Administration Metoprolol Tartrate 25 mg 03/24/22 18:00 03/25/22 09:09 Metoprolol Tartrate 25 Mg Tablet PO 25 mg BID JEREMY Administration Morphine Sulfate 15 mg 03/24/22 17:07 03/25/22 09:24 Morphine Ir 15 Mg Tablet PO 15 mg Q6H PRN Administration pAIN Pantoprazole Sodium 40 mg 03/24/22 18:00 03/25/22 09:[address] 40 Mg Tablet PO 40 mg BID JEREMY Administration Potassium Chloride 20 meq 03/25/22 06:00 03/25/22 06:20 Potassium Chloride Er 20 Meq Tablet PO 20 meq QAM JEREMY Administration Pregabalin 75 mg 03/24/22 18:00 03/25/22 09:09 Pregabalin 75 Mg Capsule PO 75 mg BID JEREMY Administration Sertraline HCl 100 mg 03/25/22 06:00 03/25/22 06:19 Sertraline 100 Mg Tablet PO 100 mg QAM JEREMY Administration PFSH Acute PFSH: Medical History Acute cystitis without hematuria Anticoagulant long-term use Atrial fibrillation Balance disorder Cardiac 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 therapy 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 (ENTERTAINMENT USHER-D) in place Cardiomyopathy CHF (congestive heart failure) Chronic renal insufficiency, stage II (mild) Chronic tophaceous gout of both hands CKD (chronic kidney disease) stage 3, GFR 30-59 ml/min Cognitive impairment GERD (gastroesophageal reflux disease) Gout HTN (hypertension) Hyperlipidemia Intracranial atherosclerosis Iron deficiency anemia Left bundle branch block MRSA carrier BASIA (obstructive sleep apnea) PAD (peripheral artery disease) Recurrent UTI Renal artery stenosis Right internal carotid artery aneurysm Sleep apnea Vertebral artery stenosis Vertebrobasilar insufficiency Surgical History H/O cardiac radiofrequency ablation S/P angioplasty with stent S/P appendectomy S/P CABG (coronary artery bypass graft) S/P section S/P hysterectomy S/P ICD (internal cardiac 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) procedure Status post aorto-coronary artery bypass graft Status post tubal ligation Family History Father , AT AGE 65 Hyperlipidemia CAD (coronary artery disease) Hypertension Rheumatoid arthritis Mother , AT AGE 65 Hyperlipidemia CAD (coronary artery disease) Hypertension Diabetes Sister Hyperlipidemia CAD (coronary artery disease) Hypertension Diabetes Other Cancer Social History Smoking and tobacco status: never smoked Second hand smoke exposure: No Alcohol intake: never Desire information about alcohol rehabilitation?: No Counseling given: No Desire information about substance/drug rehabilitation?: No Counseling given: No Marital status: Current occupational status: retired History of recent travel: No Female Reproductive History: Spontaneous abortions: No Vitals/I&O/Wt Last Vital Signs Temp 97.4 F L 03/25/22 16:00 Pulse 74 03/25/22 16:00 Resp 18 03/25/22 16:00 BP 119/57 03/25/22 16:00 Pulse Ox 94 03/25/22 16:00 O2 Del Method 03/25/22 16:00 03/25/22 03/25/22 03/25/22 06:59 14:59 22:59 Intake Total 480 / 1200 Balance 480 / 1200 Weight last 48 hrs Weight 199 lb 7 oz Weight 197 lb Physical Exam Narrative: GENERAL: Patient is alert, awake and oriented x3. [] NECK: No jugular vein distension. [] HEENT: No cyanosis. No icterus. No pallor. [] HEART: Regular S1 and S2. No murmur, rub or gallop. [] LUNGS: Clear to auscultate bilaterally. [] ABDOMEN: Soft, nontender and nondistended. Positive bowel sounds. No guarding, rebound or tenderness. [] CENTRAL NERVOUS SYSTEM: Grossly nonfocal. [] EXTREMITIES: Lower extremities with 1+ edema bilaterally. Pulses palpable in the lower extremities, both dorsalis pedis and posterior tibial. [] Data 03/25/22 04:48 03/25/22 06:28 A&P Assessment and plan (1) NSTEMI (non-ST elevated myocardial infarction): (2) CHF (congestive heart failure): (3) S/P ICD (internal cardiac 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) procedure: (4) HTN (hypertension): (5) BASIA (obstructive sleep apnea): (6) S/P CABG (coronary artery bypass graft): (7) Atrial fibrillation: Plan Patient has presented with typical chest pain symptoms and significant troponin elevation. Although the stress test is not showing significantly large area of ischemia, given her presentation with non-ST elevation SC, we will proceed with coronary angiogram. Risks and benefits of the procedure have been discussed with patient. She is understands the risks and benefits and wants to proceed with the procedure. N.p.o. past midnight Continue aspirin and Plavix Order echocardiogram Thank you for involving us with care of this patient. We will continue to follow. Please call with questions. Consult Attestations Medical Necessity Statement: Care expected to cross 2 midnights. Coding Level of Care Code Acute Wall Covering Installer for [facility] Fwd Diagnoses NSTEMI (non-ST elevated myocardial infarction) I21.4 CHF (congestive heart failure) I50.9 S/P ICD (internal cardiac 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) procedure Z95.810 HTN (hypertension) I10 BASIA (obstructive sleep apnea) G47.33 S/P CABG (coronary artery bypass graft) Z95.1 Atrial fibrillation I48.91
--- NOTE | 2022-03-25 17:07 | NMCV_ITS ---
NM shireen perf SPECT r/s* [id number] Essie Alejandre Age: 71 Gender: F : 1950 Exam Date: 03/25/2022 06:45 Ordering Phys: Nevaeh Bates MD Technologist: MARILYN Sneed Exam Location: [facility] Indications: CHEST PAIN STRESS TEST Please see separate stress test report in [facility] for full findings IMAGE PROTOCOL Rest/Stress 1 Lexiscan Day Radiopharmaceutical Dose (mCi) Administration Site Administered by Rest: Tc-99m 9.9 IV MARILYN Pozo Sestamibi Stress:Tc-99m 30.2 IV MARILYN Pozo Sestamibi Rest: 25-Mar-2022 60 Discovery 630 Stress: 25-Mar-2022 30 Discovery 630 0.4mg Lexiscan. Images obtained in supine and prone position. SPECT RESULTS Technical Quality: Excellent Raw Data Analysis: Normal Image Corrections: No attenuation or motion correction applied Summed Stress Score: 14 Summed Rest Score: 18 Summed Difference Score: 0 PERFUSION FINDINGS There are mostly fixed perfusion defects noted in the apical, apical anterior, apical lateral and inferolateral kee. This is consistent with large sized prior infarct with minimal jodi-infarct ischemia in LAD and Left circumflex artery territories FUNCTIONAL RESULTS (calculated via Gated SPECT) Stress Image LV EF (%): 51 Stress EDV (mL):152 TID: 0.97 Stress ESV (mL):74 FUNCTIONAL FINDINGS: There is normal left ventricular systolic function. IMPRESSIONS 1. Abnormal myocardial perfusion imaging with large sized prior infarcts with minimal jodi-infact ischemia in LAD and Left circumflex territories 2. LV systolic function is normal Kel Molina MD (Electronically Signed) Final Date: 25 March 2022 11:51 S
[2022-03-25 20:22] LABS: Glucose Point of Care 104 mg/dL (70-110)
[2022-03-25] MEDS: aspirin 81 mg EC Tablet PO (21:17)
[2022-03-25] MEDS: clopidogrel 75 mg Tablet PO (21:17)
[2022-03-26] VITALS (33 sets, daily range): BP systolic 109–153; BP diastolic 57–105; PULSE 68–77; RESP 12–26; TEMP 36.8–37.1; O2SAT 90–99
[2022-03-26] MEDS: morphine IR 15 mg Tablet PO ×2 (01:44→12:27)
[2022-03-26] MEDS: sodium chloride 0.9% 1,000 ML 50 ML IV (04:59)
[2022-03-26] MEDS: diphenhydrAMINE 50 mg Capsule PO (04:59)
--- NOTE | 2022-03-26 06:00 | XACV_ITS ---
Exam Room: [facility] Ht: 165 cm Wt: 90 kg BSA: 2.07 m2 Gender: Female : 1950 Any Known Allergies: Other Exam Priority: Routine Procedure(s): Procedure Description: Diagnostic procedure Procedure Description: PCI procedure Procedure Description: Venous Graft Catheterization Procedure Description: Drug Eluting Coronary Stent Procedure Description: Miscellaneous Procedure Description: ACT Procedure Description: Coronary Angiography Diagnostic Cath Status: Urgent Diagnostic Findings * Left main artery: Patent LAD: Has mild to moderate luminal irregularities. No significant stenosis. Left circumflex artery: Has patent proximal stent. Has mild 20% in-stent restenosis RCA: Is ostially occluded SVG to RCA: Patent SVG to left circumflex artery with jump graft to diagonal artery: SVG limb to circumflex artery is patent. SVG limb to diagonal artery has a critical 99% stenosis. MONTE to LAD not injected as is known atretic. * Coronary angiography shows right dominance. PCI Status: Urgent PCI Indication: NSTE - ACS Interventional Findings * Procedure Detail: We engaged SVG to diagonal artery with a JR4 guide catheter. IV heparin was administered to maintain ACT above 250 s. 0.014 run-through guidewire was used to cross critical SVG to diagonal artery stenosis. We revascularized the graft with a 2.75 x 18 mm resolute [place] drug-eluting stent. At this time final angiogram was performed that showed excellent stent expansion, no residual stenosis and TERELL-3 flow. Patient left the X Ray Physician in stable condition.. Conclusions 1. Left main artery: Patent LAD: Has mild to moderate luminal irregularities. No significant stenosis. Left circumflex artery: Has patent proximal stent. Has mild 20% in-stent restenosis RCA: Is ostially occluded SVG to RCA: Patent SVG to left circumflex artery with jump graft to diagonal artery: SVG limb to circumflex artery is patent. SVG limb to diagonal artery has a critical 99% stenosis. MONTE to LAD not injected as is known atretic. 2. Critical 99% stenosis of the SVG to diagonal artery s/p revascularization with REJI x1. 3. Patient has prior CABG. Recommendations * Aggressive risk factor modification. * Dual antiplatelet therapy with aspirin and Plavix for atleast 1 year. * High intensity statin therapy. * Outpatient cardiology follow up in 4 weeks. Interventional RX Recommendation: PCI w/o planned CABG Diagnostic RX Recommendation: PCI w/o planned CABG Anticoagulation: Heparin Pressures Phase:Rest AO : 128 / 66 ( 87 ) @ 7:12:00 AM 106 / 63 ( 81 ) @ 7:22:00 AM Clinical Evaluation EBL: 5mL-10mL Procedural Details Procedure Consent Obtained. Pre-Procedure Time Out. Identified patient by full name and date of as verbalized by the patient/guarantor. Does the consent match the physician's order: Yes. Accurate & Complete Informed Consent: Yes. Inpatient/Outpatient History & Physical on Chart: Yes. If H&P is completed, is and addenduem needed: No. Visualize and Verify Site with Patient/Guarantor: N/A. Relevant Radiology Images available: Yes. The risks, benefits, and alternatives of sedation and/or procedure were discussed by physician. The patient agrees to continue. Procedure started. [facility] Clinical Fraility Score: 4: Vulnerable. X Ray Physician Indications: ACS > 24 hours. Chest Pain Symptom Assessment: Typical Angina Symptoms. Cardiovascular Instability: No. Correct patient, site and procedure confirmed by cath team. Current diagnosis: NSTEMI. PERRLA. Strong, equal hand high climber bilaterally. Lungs clear x 5 lobes. IV Site on Arrival: 22 gauge in the right wrist. IV Fluids: 0.9% NaCl at KVO. 50 mL infused prior to pathology laboratory aides teacher. Pre Procedural Pulses: bilateral dorsalis pedis was 2+. Pre Procedural Pulses: bilateral posterior tibial was 2+. Pre Procedural Pulses: bilateral radial was 2+. Oxygen started at 2liters/min via nasal canula. bilateral groins was prepped with chloroprep then draped in the usual sterile fashion. Physician notified. Patient's family in the pathology laboratory aides teacher waiting room. Dr. Molina will update at the completion of the procedure. Equipment: 6F - Femoral. Cardiac Cath Pack. ACIST Manifold Kit Model BT 2000. Heparinized Saline (2 units/mL), 1000 mL bag. Kit, Micropuncture. Baseline sample Acquired. HR: 72 BPM. Physician arrived. Physician scrubbed in. Immediate Pre-Procedure Time Out. Correct Patient: Yes; Correct Procedure: Yes; Correct Site: Yes; Correct Patient Position: Yes; Correct Supplies: Yes; Dried Flammable Prep: Yes; Blood Products Available: N/A;. Lidocaine 1% infiltrated to the right groin. Arterial access obtained with micropuncture set, under ultrasound guidance. Unable to advance wire, access needle out, Dr. Molina holding manual pressure. Arterial access obtained with micropuncture set, under ultrasound guidance. A 5 jordanian JL4 catheter in over the standard J wire. Multiple views taken of left coronary artery. Catheter removed over the standard J wire. A 6 jordanian JR4 catheter in over the standard J wire. SVG to OM/Diagonal visualized. [place] RCA visualized and occluded. SVG to RCA visualized. Standard J wire out, Exchange J wire in to remove JR4. 6 jordanian JR 4 guide catheter was inserted over the exchange J wire. Runthrough guidewire was advanced through the guide catheter to lesion in the SVG-->Diagonal. Inflation Number : 1 Tin WEBB R ISAMAR 2.75X18 REJI -Lot Number# [id number] prepped and advanced across the Aorta Left -> 1st Diag. The stent was deployed at 12 CAMMIE for 0:27 seconds. Exp. 2024-01-05. Stent balloon out over wire. ACT drawn. Results out of range. Will obtain another sample. Results checked. Wire out. Guide catheter out over the exchange J wire. A Right femoral angiogram was performed to determine safe placement of closure device. Dr. Molina scrubbed out. ACT drawn. Results 256 seconds. Therapeutic limits - pre-heparin administration 90-150 seconds and monitoring heparin during a vascular procedure >250 seconds. A Suture was successful obtaining hemostatsis at the Right Femoral artery insertion site. Sheath(s) sutured into position with 2-0 silk and sterile 4x4's and Op-site applied over the site. No oozing or signs and symptoms of hematoma noted. Arterial sheath flushed and connected to tranducer and pressure bag with heparinized saline. Post Procedure: Pulses reassessed and unchanged. PERRLA. Strong, equal hand high climber bilaterally. Medication's Wasted: Lidocaine 1% = 2 mL. No VTE prophylaxis required. Medication's Wasted: Nitro = 49.8 mg. Medication's Wasted: Heparin = 4000 Units. Medication's Wasted: Other = Versed 1mg. Medication's Wasted: Other = Fentanyl 50 mcg. Total IV fluids: 66 mL. Post-op diagnosis: PCI of the SVG-->Diagonal. PCI Indication: NSTE. Complications: none. Estimated blood loss: 5mL-10mL. Responsiveness - Normal response to verbal stimuli; alert and oriented, PERRLA. Airway - Unaffected, no intervention required; spontaneous ventilation. Circulation: W/N/L, pulses unchanged. Nausea/Vomiting: No. Procedure completed. Patient transferred by bed to CPRU. Vital chart was stopped. Access Site Site: Right Femoral artery Sheath Size: 6 Fr Hemostasis Method: Suture Hemostasis Success: Successful Procedure Medications Start: 6:38 AM Stop: 6:38 AM Medication: Versed Amount: 1 mg Route: I.V. Start: 6:38 AM Stop: 6:38 AM Medication: Fentanyl Amount: 50 mcg Route: I.V. Start: 7:10 AM Stop: 7:10 AM Medication: Heparin Amount: 8000 units Route: I.V. Start: 7:20 AM Stop: 7:20 AM Medication: Nitrogylcerin Amount: 200 mcg Route: I.C. Start: 7:30 AM Stop: 7:30 AM Medication: Plavix Amount: 300 mg Route: P.O. Start: 7:30 AM Stop: 7:30 AM Medication: Aspirin Amount: 81 mg Route: P.O. I, the attending physician, have reviewed and verified all procedure medications. Yes, all medications given per verbal order History/Risk Factors Hypertension: Yes Dyslipidemia: Yes Peripheral Arterial Disease (PAD): Yes Myocardial Infarction (CA): No Obesity: Yes Renal Disease: No Tobacco Use: Never Prior Interventions PCI: No CABG: Yes Valve Surgery: No Report Signatures Finalized by Kel Molina MD on 04/08/2022 01:17 PM
[2022-03-26 06:11] LABS: Blood Urea Nitrogen 25 mg/dL (8-23); Calcium 8.8 mg/dL (8.5-10.5); Carbon Dioxide 27 mmol/L (22-29); Chloride 96 mmol/L (98-107); Glomerular Filtration Rate 62.1 mL/min (90-130); Glucose 97 mg/dL (65-115); Osmolality Calculated 284 mOsm/kg (285-295); Sodium 135 mmol/L (136-145)
[2022-03-26 06:23] LABS: Anion Gap 15.5 (5-19); Potassium 3.5 mmol/L (3.5-5.1)
--- NOTE | 2022-03-26 06:25 | PC.NURSE ---
Patient transfered to dental laboratory technician apprentice in bed at this time.
--- NOTE | 2022-03-26 06:43 | W.PM.OPSUD ---
Surgery/Procedure H&P Update DATE OF PROCEDURE: March 26, 2022 DATE H&P PERFORMED: 03/25/22 H&P UPDATE INFORMATION: I have reviewed H&P completed within last 30 days, I have examined patient prior to procedure and No changes to prior documentation PREOP DIAGNOSIS: NSTEMI PRIMARY INDICATION FOR PROCEDURE: NSTEMI PLANNED PROCEDURE: Operation Date: 03/26/22 06:00 Proposed Procedures p Cardiac Catheterization(Left) - Kel Molina M.D Possible percutaneous coronary intervention PATIENT REASSESSED PRIOR TO SEDATION, WITH NO CHANGE NOTED: Yes PHYSICAL EXAM: alert, oriented x 3, clear to auscultation bilaterally and regular rate & rhythm AIRWAY EVAL/ANESTHESIA PLAN: ASA III, Local Anesthesia, Risks, benefits & alternatives of sedation and/or procedure discussed and Patient agrees to continue as planned ADDITIONAL INFORMATION: Moderate sedation
--- NOTE | 2022-03-26 07:48 | PC.NURSE ---
received pt from veterinary laboratory technician. pt sleepy but able to arouse with calling name. pt complains of no pain. sheath in right groin dry and intact. family at bedside. distal pulse on right side palpable. have educated pt and family of restrictions of right leg and both acknowledged understanding. will continue to educate throughout recovery. pt placed on heart monitor and will be monitored per protocol. pt was given palvix and asprin in veterinary laboratory technician.
[2022-03-26] MEDS: pantoprazole DR 40 mg Tablet PO ×3 (10:48→18:44)
[2022-03-26] MEDS: sertraline 100 mg Tablet PO ×3 (10:49→10:53)
[2022-03-26] MEDS: allopurinol 100 mg Tablet 400 MG PO ×2 (10:49→10:51)
[2022-03-26] MEDS: atorvastatin 40 mg Tablet PO ×2 (10:49→10:51)
[2022-03-26] MEDS: FUROsemide 40 mg Tablet PO ×3 (10:49→10:55)
[2022-03-26] MEDS: isosorbide mononitrate ER 60 mg Tablet PO ×2 (10:50→10:54)
[2022-03-26] MEDS: metoprolol tartrate 25 mg Tablet PO ×2 (10:54→18:44)
[2022-03-26] MEDS: pregabalin 75 mg Capsule PO ×2 (11:00→18:44)
[2022-03-26 11:13] LABS: Partial Thromboplastin Time 102.4 SECONDS (23.9-36.7)
--- NOTE | 2022-03-26 11:20 | PM.PN ---
Subjective Subjective: Will stay 1 more day Status post angioplasty Hemodynamically stable Vitals/I&O/Wt Last Vital Signs Temp 98.5 F 03/26/22 09:20 Pulse 70 03/26/22 11:15 Resp 15 03/26/22 11:15 BP 109/57 03/26/22 11:15 Pulse Ox 95 03/26/22 11:15 O2 Del Method 03/26/22 11:15 O2 Flow Rate 2 03/26/22 11:15 03/25/22 03/26/22 03/26/22 22:59 06:59 14:59 Intake Total 240 / 440 0 / 0 Balance 240 / 440 0 / 0 Weight last 48 hrs Weight 90.463 kg Physical Exam Narrative: S1, S2 Hemodynamically stable No sign of fluid overload Abdomen soft Awake and alert No audible stridor or wheezing eomi , PERRLA Data 03/25/22 04:48 03/26/22 04:35 A&P Assessment and plan (1) NSTEMI (non-ST elevated myocardial infarction): (2) CHF (congestive heart failure): (3) H/O cardiac radiofrequency ablation: (4) S/P ICD (internal cardiac 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) procedure: (5) S/P angioplasty with stent: (6) BASIA (obstructive sleep apnea): (7) HTN (hypertension): Plan Angioplasty, SVG graft to diagonal with 99% stenosis continue aspirin, Plavix Discharge tomorrow Hemoglobin stable Full code CPAP overnight for sleep apnea DVT prophylaxis on board Blood pressure stable Attestations Medical Necessity Statement*: Discharge tomorrow Time Spent in Patient Care: 20 Coding Level of Care Code Acute Technology Applications Engineer for [facility] Fwd Diagnoses NSTEMI (non-ST elevated myocardial infarction) I21.4 CHF (congestive heart failure) I50.9 H/O cardiac radiofrequency ablation Z98.890 S/P ICD (internal cardiac 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) procedure Z95.810 S/P angioplasty with stent Z95.820 BASIA (obstructive sleep apnea) G47.33 HTN (hypertension) I10
[2022-03-26 13:17] LABS: Partial Thromboplastin Time 41.7 SECONDS (23.9-36.7)
[2022-03-26] MEDS: potassium chloride ER 20 mEq Tablet PO (18:44)
--- NOTE | 2022-03-26 19:41 | P.PN_ITS ---
Subjective Subjective: Patient underwent coronary angiogram today that revealed critical 99% stenosis of SVG to diagonal artery. She underwent successful revascularization with REJI x1. This is a jump graft with the LM supplying OM and is patent. SVG to RCA is patent. [place] LAD is patent. MONTE not engaged secondary to known atretic graft. Vitals/I&O/Wt Last Vital Signs Temp 98.7 F 03/26/22 15:25 Pulse 70 03/26/22 17:47 Resp 16 03/26/22 17:47 BP 148/76 03/26/22 17:47 Pulse Ox 99 03/26/22 17:47 O2 Del Method 03/26/22 17:47 O2 Flow Rate 2 03/26/22 17:47 03/26/22 03/26/22 03/26/22 06:59 14:59 22:59 Intake Total 480 / 480 900 / 1380 Output Total 360 / 360 Balance 120 / 120 900 / 1020 Physical Exam Narrative: GENERAL: Patient is alert, awake and oriented x3. [] NECK: No jugular vein distension. [] HEENT: No cyanosis. No icterus. No pallor. [] HEART: Regular S1 and S2. No murmur, rub or gallop. [] LUNGS: Clear to auscultate bilaterally. [] ABDOMEN: Soft, nontender and nondistended. Positive bowel sounds. No guarding, rebound or tenderness. [] CENTRAL NERVOUS SYSTEM: Grossly nonfocal. [] EXTREMITIES: Lower extremities with 1+ edema bilaterally. Pulses palpable in the lower extremities, both dorsalis pedis and posterior tibial. [] Data 03/25/22 04:48 03/26/22 04:35 A&P Assessment and plan (1) NSTEMI (non-ST elevated myocardial infarction): (2) CHF (congestive heart failure): (3) S/P ICD (internal cardiac 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) procedure: (4) HTN (hypertension): (5) BASIA (obstructive sleep apnea): (6) S/P CABG (coronary artery bypass graft): (7) Atrial fibrillation: Plan Patient underwent successful revascularization of SVG to diagonal artery. Above-mentioned coronary anatomy. Continue aspirin and Plavix for at least 1 year. Thank you for involving us with care of this patient. We will continue to follow. Please call with questions. Attestations Medical Necessity Statement*: Care expected to cross 2 midnights. Coding Level of Care Code Acute Swimming Pool Maintenance for Chg Fwd Diagnoses NSTEMI (non-ST elevated myocardial infarction) I21.4 CHF (congestive heart failure) I50.9 S/P ICD (internal cardiac 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) procedure Z95.810 HTN (hypertension) I10 BASIA (obstructive sleep apnea) G47.33 S/P CABG (coronary artery bypass graft) Z95.1 Atrial fibrillation I48.91
--- NOTE | 2022-03-26 20:09 | PC.NURSE ---
R groin sheath pulled at 1649. Patient remained stable. Site dressed with 1 2x2 and tegaderm. Patient reported no symptoms.
--- NOTE | 2022-03-26 20:52 | PC.NURSE ---
Dr Molina here on the floor to see patient. Doctor stopped and asked this RN to place order for Fentanyl 25mcg IVP every 4 hours PRN for severe pain. RBVO
[2022-03-26] MEDS: clopidogrel 75 mg Tablet PO (21:02)
[2022-03-26] MEDS: aspirin 81 mg EC Tablet PO (21:02)
[2022-03-26] MEDS: fentaNYL 50 mcg/mL INJ 2mL 25 MCG IVP (21:31)
[2022-03-27] VITALS (8 sets, daily range): BP systolic 125–129; BP diastolic 54–64; PULSE 70–76; RESP 14–19; TEMP 37.3; O2SAT 93–96
[2022-03-27 04:34] LABS: Blood Urea Nitrogen 24 mg/dL (8-23); Calcium 8.6 mg/dL (8.5-10.5); Carbon Dioxide 23 mmol/L (22-29); Chloride 93 mmol/L (98-107); Glomerular Filtration Rate 71.1 mL/min (90-130); Glucose 98 mg/dL (65-115); Osmolality Calculated 276 mOsm/kg (285-295); Sodium 131 mmol/L (136-145)
[2022-03-27 04:35] LABS: Anion Gap 18.8 (5-19); Potassium 3.8 mmol/L (3.5-5.1)
[2022-03-27] MEDS: potassium chloride ER 20 mEq Tablet PO (05:22)
[2022-03-27] MEDS: FUROsemide 40 mg Tablet PO (05:22)
[2022-03-27] MEDS: allopurinol 100 mg Tablet 400 MG PO (05:22)
[2022-03-27] MEDS: isosorbide mononitrate ER 60 mg Tablet PO (05:22)
[2022-03-27] MEDS: atorvastatin 40 mg Tablet PO (05:22)
[2022-03-27] MEDS: sertraline 100 mg Tablet PO (05:22)
[2022-03-27 05:55] LABS: Basophils % 0.2 %; Eosinophils % 0.1 %; Hematocrit 35.8 % (37.0-47.0); Hemoglobin 11.2 g/dL (11.5-15.3); Lymphocytes # 0.9 10^3/uL (0.8-4.8); Lymphocytes % 6.6 %; Mean Corpuscular HGB Conc 31.3 g/dL (30.0-36.0); Mean Corpuscular Hemoglobin 31.7 pg (28.0-34.0); Mean Corpuscular Volume 101.4 fl (81-99); Mean Platelet Volume 10.4 fL (7.4-10.4); Monocytes # 1.1 10^3/uL (0.2-0.9); Monocytes % 7.8 %; Neutrophils # 11.48 10^3/uL (1.8-7.7); Neutrophils % 84.9 %; Nucleated Red Blood Cells % 0 %; Platelet Count 237 10^3/cmm (130-400); Red Blood Count 3.53 10^6/uL (4.1-5.3); Red Cell Distribution Width 15.7 % (12.1-15.1); White Blood Count 13.5 10^3/uL (4.0-10.0)
--- NOTE | 2022-03-27 08:49 | P.PN_ITS ---
Subjective Subjective: Patient is stable. No complaints of chest pain. Vitals/I&O/Wt Last Vital Signs Temp 99.1 F 03/27/22 03:30 Pulse 76 03/27/22 08:18 Resp 16 03/27/22 08:18 BP 125/54 03/27/22 08:15 Pulse Ox 96 03/27/22 08:18 O2 Del Method 03/27/22 08:18 O2 Flow Rate 2 03/27/22 03:30 03/26/22 03/27/22 03/27/22 22:59 06:59 14:59 Intake Total 2900 / 3380 800 / 4180 Balance 2900 / 3020 800 / 3820 Physical Exam Narrative: GENERAL: Patient is alert, awake and oriented x3. [] NECK: No jugular vein distension. [] HEENT: No cyanosis. No icterus. No pallor. [] HEART: Regular S1 and S2. No murmur, rub or gallop. [] LUNGS: Clear to auscultate bilaterally. [] ABDOMEN: Soft, nontender and nondistended. Positive bowel sounds. No guarding, rebound or tenderness. [] CENTRAL NERVOUS SYSTEM: Grossly nonfocal. [] EXTREMITIES: Lower extremities with 1+ edema bilaterally. Pulses palpable in the lower extremities, both dorsalis pedis and posterior tibial. [] Data 03/27/22 05:39 03/27/22 02:34 A&P Assessment and plan (1) NSTEMI (non-ST elevated myocardial infarction): (2) CHF (congestive heart failure): (3) S/P ICD (internal cardiac 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) procedure: (4) HTN (hypertension): (5) BASIA (obstructive sleep apnea): (6) S/P CABG (coronary artery bypass graft): (7) Atrial fibrillation: Plan Patient underwent successful revascularization of SVG to diagonal artery. Continue aspirin and Plavix for at least 1 year. Thank you for involving us with care of this patient. Patient is stable to be discharged from cardiology standpoint. Please call with questions. Attestations Medical Necessity Statement*: Care expected to cross 2 midnights. 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
[2022-03-27] MEDS: predniSONE 20 mg Tablet 60 MG PO (09:16)
[2022-03-27] MEDS: pregabalin 75 mg Capsule PO (09:16)
[2022-03-27] MEDS: TRAMadol 50 mg Tablet PO (09:17)
[2022-03-27] MEDS: metoprolol tartrate 25 mg Tablet PO (09:17)
[2022-03-27] MEDS: FUROsemide 10 mg/mL SDV 10mL 60 MG IVP (09:25)
--- NOTE | 2022-03-27 09:36 | PM.DCS ---
Discharge Providers Date of Admission: 03/26/22 16:00 Date of Discharge: March 27, 2022 Attending Provider at Admission: Nevaeh Bates MD Attending Provider at Discharge: Nevaeh Bates MD Primary Care Provider: Derek Dowd DO Diagnoses at Discharge Discharge Diagnosis (1) NSTEMI (non-ST elevated myocardial infarction): Status: Acute (2) CHF (congestive heart failure): Status: Acute (3) S/P ICD (internal cardiac 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) procedure: Status: Chronic (4) HTN (hypertension): Status: Acute (5) BASIA (obstructive sleep apnea): Status: Acute (6) S/P CABG (coronary artery bypass graft): Status: Acute (7) Atrial fibrillation: Status: Acute Reason for Visit Reason for Visit: sob Hospital Course Hospital Course 71-year female with history of CABG, who was admitted for management evaluation of NSTEMI, PE she has established history of coronary disease cardiology was consulted, she went for coronary angiogram status post stent to [facility], she will continue her aspirin and Plavix along statins at home. She was mildly fluid overloaded positive crackles on clinical exam. She will get Lasix along potassium supplement at the time of discharge. Patient does have history of gout I have continued her allopurinol. We will give her tramadol and a dose of steroids before discharge. Physical Exam Narrative: Awake and alert on Room air Hemodynamically stable No signs of hematoma around right groin area Abdomen S1, S2, mild crackles on lung auscultation Discharge Data Studies Completed and Pending Completed Studies During Hospitalization Category Date Time Status Sestamibi Stress Test Request Routine Exams 03/24/22 17:07 Draft XR chest 1V portable [id number] Stat Exams 03/24/22 10:59 Completed NM shireen perf SPECT r/s* [id number] Routine Nuc Med 03/25/22 17:07 Completed Pending at discharge Category Date Time Status ACQUISITION MANAGER request for service Routine Exams 03/26/22 06:00 Ordered Radiology Impressions Chest X-Ray 03/24/22 10:59 IMPRESSION: 1. Mild cardiac enlargement unchanged. No acute process noted. Laboratory Results WBC 13.5 10^3/uL (4.0-10.0) H 03/27/22 05:39 Corrected WBC Cancelled 03/27/22 02:34 RBC 3.53 10^6/uL (4.1-5.3) L 03/27/22 05:39 Hgb 11.2 g/dL (11.5-15.3) L 03/27/22 05:39 Hct 35.8 % (37.0-47.0) L 03/27/22 05:39 MCV 101.4 fl (81-99) H 03/27/22 05:39 MCH 31.7 pg (28.0-34.0) 03/27/22 05:39 MCHC 31.3 g/dL (30.0-36.0) 03/27/22 05:39 RDW 15.7 % (12.1-15.1) H 03/27/22 05:39 Plt Count 237 10^3/cmm (130-400) 03/27/22 05:39 MPV 10.4 fL (7.4-10.4) 03/27/22 05:39 Gran % Cancelled 03/27/22 02:34 Neut % (Auto) 84.9 % 03/27/22 05:39 Lymph % (Auto) 6.6 % 03/27/22 05:39 Garden % (Auto) 7.8 % 03/27/22 05:39 Eos % (Auto) 0.1 % 03/27/22 05:39 Baso % (Auto) 0.2 % 03/27/22 05:39 Neut # (Auto) 11.48 10^3/uL (1.8-7.7) H 03/27/22 05:39 Lymph # (Auto) 0.9 10^3/uL (0.8-4.8) 03/27/22 05:39 Garden # (Auto) 1.1 10^3/uL (0.2-0.9) H 03/27/22 05:39 Eos # (Auto) 0.0 10^3/uL (0.0-0.8) 03/27/22 05:39 Baso # (Auto) 0.0 10^3/uL (0.0-0.1) 03/27/22 05:39 Absolute Gran (auto) Cancelled 03/27/22 02:34 Nucleated RBC % (auto) 0 % 03/27/22 05:39 Nucleated RBCs # 0.0 /100WBC 03/27/22 05:39 APTT 41.7 SECONDS (23.9-36.7) H D 03/26/22 12:53 Sodium 131 mmol/L (136-145) L 03/27/22 02:34 Potassium 3.8 mmol/L (3.5-5.1) 03/27/22 02:34 Chloride 93 mmol/L (98-107) L 03/27/22 02:34 Carbon Dioxide 23 mmol/L (22-29) 03/27/22 02:34 Anion Gap 18.8 (5-19) 03/27/22 02:34 BUN 24 mg/dL (8-23) H 03/27/22 02:34 Creatinine 0.8 mg/dL (0.5-0.9) 03/27/22 02:34 GFR Calculation 71.1 mL/min (90-130) L 03/27/22 02:34 Glucose 98 mg/dL (65-115) 03/27/22 02:34 POC Glucose 104 mg/dL (70-110) 03/25/22 20:15 Calculated Osmolality 276 mOsm/kg (285-295) L 03/27/22 02:34 Calcium 8.6 mg/dL (8.5-10.5) 03/27/22 02:34 Magnesium 1.5 mg/dL (1.7-2.3) L 03/25/22 06:28 Total Bilirubin 0.7 mg/dL (0.15-1.2) 03/24/22 11:30 AST 40 U/L (0-32) H 03/24/22 11:30 ALT 16 U/L (0-33) 03/24/22 11:30 Alkaline Phosphatase 163 U/L (35-105) H 03/24/22 11:30 Troponin T Baseline 152 ng/L (0-10) H* 03/24/22 11:30 Troponin T 120 Minute 166.8 ng/L (0-10) H 03/24/22 14:17 Delta Troponin T 14.8 ABS# (0-10) H* 03/24/22 14:17 Troponin T Hi Sens 6Hr 176.6 ng/L (0-10) H 03/24/22 18:37 Troponin T Hi Sens 6Hr Delta 24.6 ng/L (0-12) H* 03/24/22 18:37 NT-Pro-B Natriuret Pep 5052 pg/mL (0-125) H 03/24/22 11:30 Total Protein 6.9 g/dL (6.6-8.7) 03/24/22 11:30 Albumin 4.0 g/dL (3.5-5.2) 03/24/22 11:30 Globulin 2.9 g/dL (1.3-4.6) 03/24/22 11:30 Vitals Last Vital Signs Temp 99.1 F 03/27/22 03:30 Pulse 76 03/27/22 08:18 Resp 16 03/27/22 08:18 BP 125/54 03/27/22 08:15 Pulse Ox 96 03/27/22 08:18 O2 Del Method 03/27/22 08:18 O2 Flow Rate 2 03/27/22 03:30 Discharge Plan Discharge Patient Disposition: Home Condition: Stable Prescriptions: New tramadol 100 mg tablet 50 mg PO DAILY Qty: 10 0RF potassium chloride 10 mEq tablet extended release 10 meq PO DAILY Qty: 30 0RF Rx Instructions: only take with lasix Continued multivitamin Tablet 1 tab PO QAM Tart Alonso Extract 1,000 mg capsule 1,000 mg PO QAM pregabalin [Lyrica] 75 mg capsule 75 mg PO BID Qty: 60 3RF alprazolam 0.5 mg Tablet 0.5 mg PO DAILY PRN (Reason: Anxiety) omega-3 fatty acids 1,000 mg Capsule 1,000 mg PO BEDTIME Nitrostat 0.4 mg Tablet, Sublingual 0.4 mg SUBLINGUAL Q5M PRN (Reason: Chest Pain) Rx Instructions: do not exceed 3 doses per episode albuterol sulfate 90 mcg/actuation Hfa Aerosol Inhaler 2 puff INHALATION QID PRN (Reason: Shortness Of Breath) sertraline 100 mg tablet 100 mg PO QAM isosorbide mononitrate 60 mg tablet extended release 24 hr 60 mg PO QAM pantoprazole 40 mg tablet,delayed release (DR/EC) 40 mg PO BID metoprolol tartrate 25 mg tablet 25 mg PO BID potassium chloride 20 mEq tablet extended release 20 meq PO QAM atorvastatin 40 mg tablet 40 mg PO QAM Qty: 120 0RF Adult Aspirin Regimen 81 mg tablet,delayed release (DR/EC) 81 mg PO BEDTIME Qty: 120 0RF Changed clopidogrel 75 mg tablet 75 mg PO BEDTIME Qty: 120 0RF allopurinol 100 mg tablet 400 mg PO QAM Qty: 30 0RF Tylenol Arthritis Pain 650 mg tablet extended release 650 mg PO BID Qty: 60 0RF furosemide 40 mg tablet 40 mg PO QAM Qty: 30 0RF Discharge Orders: Discharge Order (Routine); Ordered 03/27/22 Ordered By: Nevaeh Bates Referrals: Derek Dowd, [Primary Care Provider] - 2 weeks (Please call Dr. Dowd's office on Tuesday to schedule a hospital followup to be seen in Two weeks. Thank you.) Discharge Diet: Cardiac Discharge Activity: Increase activity as tolerated Patient Instructions: Tramadol (By mouth) (Ultram, Ultram ER, [place], Theratramadol-60, Qdolo), Opioid Safety, Pain Management Discharge Attestations Time Spent in Discharge Care*: less than 30 min Status at Discharge: Cognitive status at discharge: cognitively intact, Behavioral status at discharge: cooperative, Quality Metrics Clinical Quality Measures [ No reported AMI, CVA or VTE this stay] Coding Level of Care Code Acute Chg FW DC note Diagnoses NSTEMI (non-ST elevated myocardial infarction) I21.4 CHF (congestive heart failure) I50.9 S/P ICD (internal cardiac 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) procedure Z95.810 HTN (hypertension) I10 BASIA (obstructive sleep apnea) G47.33 S/P CABG (coronary artery bypass graft) Z95.1 Atrial fibrillation I48.91
--- NOTE | 2022-03-27 11:17 | PC.NURSE ---
discharge instructions given and explained.pt and spouse verb understanding of instructions.discharged via w/c to exit at this time.spouse to drive pt home.
== END 2022-03-27 11:18 | disposition home or self-care (01) | DRG 246 ==
LOC: ER 15:45 → CSU 16:53
PROVIDERS: Internal Medicine; Admitting Provider Internal Medicine; Emergency Provider Family Medicine; PCP Family Medicine; Visit Provider Internal Medicine
PROC: 027034Z Dilation of Coronary Artery, One Artery with Drug-eluting Intraluminal Device, Percutaneous Approach (ICD-10-PCS; principal; 2022-03-26 06:00)
PROC: 027034Z Dilation of Coronary Artery, One Artery with Drug-eluting Intraluminal Device, Percutaneous Approach (ICD-10-PCS; 2022-03-26 06:00)
DX: I21.4 Non-ST elevation (NSTEMI) myocardial infarction (principal); I50.33 Acute on chronic diastolic (congestive) heart failure; I13.0 Hypertensive heart and chronic kidney disease with heart failure and stage 1 through stage 4 chronic kidney disease, or unspecified chronic kidney disease; T82.855A Stenosis of coronary artery stent, initial encounter; Y71.1 Therapeutic (nonsurgical) and rehabilitative cardiovascular devices associated with adverse incidents; N18.2 Chronic kidney disease, stage 2 (mild); I25.709 Atherosclerosis of coronary artery bypass graft(s), unspecified, with unspecified angina pectoris; I48.91 Unspecified atrial fibrillation; I44.7 Left bundle-branch block, unspecified; I70.1 Atherosclerosis of renal artery; G47.33 Obstructive sleep apnea (adult) (pediatric); E78.5 Hyperlipidemia, unspecified; K21.9 Gastro-esophageal reflux disease without esophagitis; I67.2 Cerebral atherosclerosis; I73.9 Peripheral vascular disease, unspecified; I67.1 Cerebral aneurysm, nonruptured; I65.09 Occlusion and stenosis of unspecified vertebral artery; I25.5 Ischemic cardiomyopathy; M1A.9XX1 Chronic gout, unspecified, with tophus (tophi); Z95.1 Presence of aortocoronary bypass graft; Z95.810 Presence of automatic (implantable) cardiac 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; Z98.890 Other specified postprocedural states; Z79.82 Long term (current) use of aspirin; Z79.02 Long term (current) use of antithrombotics/antiplatelets; Z22.322 Carrier or suspected carrier of Methicillin resistant Staphylococcus aureus; Z87.440 Personal history of urinary (tract) infections; Z95.5 Presence of coronary angioplasty implant and graft
CPT/HCPCS: 36415; 36416; 71045; 78452; 80048; 80053; 82962; 83735; 83880; 84484; 85025; 85347; 85730; 93005; 93017; 93454; 96365; 96372; 96374; 99152; 99153; 99285; A9500; C1769; C1874; C1887; C1894; C9600; G0378; J1644; J1650; J1940; J2250; J2785; J3010; J3490; J7030; J7512; Q0163; Q9967

== ENCOUNTER 2022-03-29 13:31 | Emergency (ER) | payer BC, MEDICARE, SELFPAY ==
[2022-03-29 13:40] VITALS: BP 150/85; PULSE 70; TEMP 36.6; O2SAT 97; BMI 32.3
--- NOTE | 2022-03-29 13:49 | XRR_ITS ---
PROCEDURE INFORMATION: Exam: XR Chest Exam date and time: 03/29/2022 3:22 PM Age: 71 years old Clinical indication: Right-sided; Prior surgery; Surgery type: Angio, stents, bypass; Patient HX: History--pt states that she has upper extremity RT arm swelling and pain in the RT wrist, RT elbow and RT shoulder that radiates up the side of the neck to the base of skull. PT states that shes had this pain since her angioplasty Tuesday. ; Additional info: R side pain TECHNIQUE: Imaging protocol: Radiologic exam of the chest. Views: 1 view. COMPARISON: CR XR chest 1V portable [id number] 03/24/2022 12:38 PM FINDINGS: Tubes, catheters and devices: A cardiac device is present in the left anterior chest. Lungs: Unremarkable. No consolidation. Pleural spaces: Unremarkable. No pleural effusion. No pneumothorax. Heart/Mediastinum: Unremarkable. No cardiomegaly. Bones/joints: Metallic sternotomy wires are present. XR/XR chest 1V portable [id number] IMPRESSION: 1. No acute findings. 2. Status post sternotomy. 3. Cardiac device left anterior chest
--- NOTE | 2022-03-29 14:23 | ED_ITS ---
HPI - Chest Pain General: Chief Complaint: Extremity Problem,Nontraumatic Stated Complaint: right side swelling Time Seen by Provider: 03/29/22 14:22 Source: patient Mode of arrival: ambulatory History of Present Illness: 71-year-old female presents emergency room complaining pain and swelling in her left arm. She relates it still when she had angiogram done 2 days ago. She states she has pain in her right arm shoulder and elbow. She reports that she has gained 2 pounds in the last 24 hours. She denies having any chest pain now her exam and history are difficult at times she will not let me touch her arm at all and she refuses to move at other times she independently moves it across the elbow wrist and shoulder with no apparent pain. She tells me that the access was through the groin and never attempted access in the right arm. She did have a single stent placed in one of her vein grafts from her previous bypass. She has no history of DVT. She is not short of breath. Neurologically she is intact. Pain radiates from her neck across her shoulder into the right arm. Denies any trauma denies any falls. MD complaint: chest pain Onset (ago): day(s) Timing of current episode: constant Pain location: other (Right arm) Pain radiation: right arm Severity: severe Quality: sharp Relieving factors: nothing Exacerbating factors: palpation and movement Associated symptoms: Deny abdominal pain, diaphoresis, dyspnea, fever(s), nausea , palpitations, sense of impending doom or vomiting Review of Systems Const: Denies: fever(s), chills, fatigue, malaise or diaphoresis ENMT: Denies: throat pain, ear or mastoid pain, nasal discharge or nasal congestion Card: Denies: palpitations Resp: Denies: dyspnea GI: Denies: abdominal pain, nausea or vomiting : Denies: flank pain, difficulty voiding, dysuria, urinary frequency or urinary urgency Skin/Breast: Denies: rash or pruritus PFSH ED PFSH: Medical History Acute cystitis without hematuria Anticoagulant long-term use Atrial fibrillation Balance disorder Cardiac 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 therapy 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 (FACILITIES OPERATIONS TECHNICIAN-D) in place Cardiomyopathy CHF (congestive heart failure) CHF (congestive heart failure) Chronic renal insufficiency, stage II (mild) Chronic tophaceous gout of both hands CKD (chronic kidney disease) stage 3, GFR 30-59 ml/min Cognitive impairment Elevated troponin I level GERD (gastroesophageal reflux disease) Gout HTN (hypertension) Hyperlipidemia Intracranial atherosclerosis Iron deficiency anemia Left bundle branch block MRSA carrier NSTEMI (non-ST elevated myocardial infarction) BASIA (obstructive sleep apnea) PAD (peripheral artery disease) Recurrent UTI Renal artery stenosis Right internal carotid artery aneurysm Sleep apnea Vertebral artery stenosis Vertebrobasilar insufficiency Surgical History H/O cardiac radiofrequency ablation S/P angioplasty with stent S/P appendectomy S/P CABG (coronary artery bypass graft) S/P section S/P hysterectomy S/P ICD (internal cardiac 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) procedure Status post aorto-coronary artery bypass graft Status post tubal ligation Family History Father , AT AGE 65 Hyperlipidemia CAD (coronary artery disease) Hypertension Rheumatoid arthritis Mother , AT AGE 65 Hyperlipidemia CAD (coronary artery disease) Hypertension Diabetes Sister Hyperlipidemia CAD (coronary artery disease) Hypertension Diabetes Other Cancer Social History Smoking and tobacco status: never smoked Second hand smoke exposure: No Alcohol intake: never Desire information about alcohol rehabilitation?: No Counseling given: No Desire information about substance/drug rehabilitation?: No Counseling given: No Marital status: Current occupational status: retired History of recent travel: No Female Reproductive History: Spontaneous abortions: No Physical Exam Const: ORIENTATION/CONSCIOUSNESS: Yes awake, Yes oriented to person, Yes oriented to place and Yes oriented to time HENMT: COMMON NORMALS: normocephalic, atraumatic and hearing grossly normal bilaterally HEAD & SCALP: normocephalic and atraumatic Resp: COMMON NORMALS: normal respiratory effort, No retractions, No use of accessory muscles and clear to auscultation bilaterally AUSCULTATION: clear to auscultation bilaterally Cardio: COMMON NORMALS: regular rate, regular rhythm and No murmurs present (Cardio) RATE: regular rate RHYTHM: regular rhythm GI: COMMON NORMALS: Soft to palpation and No hepatosplenomegaly present AUSCULTATION: Yes normoactive bowel sounds PALPATION: Yes Soft to palpation, No Tenderness to palpation present (GI), No Guarding due to palpation present (GI) and Yes No hepatosplenomegaly present Extremity: OTHER: Exam is variable. At times she wanted the lower light touch at other times I can touch and manipulate the arm she moves the arm actively will observe movement in all joints wrist elbow and shoulder but then at other times passive range of motion she states is exquisitely painful. There is no significant edema or induration of the skin no redness erythema. No vesicular rash. Deep tendon reflexes +2/4 triceps biceps and brachioradialis. Radial and ulnar pulses are normal. Sensation normal. . Neuro: SENSORIUM/ORIENTATION: Yes oriented to person, Yes oriented to place and Yes oriented to time Skin: COMMON NORMALS: no rashes or lesions noted GENERAL SKIN EXAM: no rashes or lesions noted Course Vital Signs: Vital signs: Vital Signs Temperature 97.8 F 03/29/22 13:40 Pulse Rate 70 03/29/22 16:30 Blood Pressure 150/85 03/29/22 13:40 Pulse Oximetry 94 03/29/22 16:30 Oxygen Delivery Me thod 03/29/22 16:30 MDM - Chest Pain Medical Decision Making Symptoms since consistent with cervical nerve impingement. Deep tendon reflexes +2 for any upper extremity sensation is normal. Patient still has some discomfort. Will discharge home encouraged follow-up with primary care to get further evaluation. Started on prednisone diclofenac use tizanidine as needed. Recheck if has worsening symptoms. Medical Records I reviewed the patient's medical records. Lab Data I reviewed the patient's lab results. 03/29/22 15:15 03/29/22 15:15 Radiology Impressions Chest X-Ray 03/29/22 13:49 IMPRESSION: 1. No acute findings. 2. Status post sternotomy. 3. Cardiac device left anterior chest Elbow X-Ray 03/29/22 14:33 IMPRESSION: No acute findings. Shoulder X-Ray 03/29/22 14:33 IMPRESSION: Negative for acute bony abnormality. Wrist X-Ray 03/29/22 14:33 IMPRESSION: No acute findings. Laboratory Results WBC 11.3 10^3/uL (4.0-10.0) H 03/29/22 15:15 RBC 3.28 10^6/uL (4.1-5.3) L 03/29/22 15:15 Hgb 10.5 g/dL (11.5-15.3) L 03/29/22 15:15 Hct 33.4 % (37.0-47.0) L 03/29/22 15:15 MCV 101.8 fl (81-99) H 03/29/22 15:15 MCH 32.0 pg (28.0-34.0) 03/29/22 15:15 MCHC 31.4 g/dL (30.0-36.0) 03/29/22 15:15 RDW 15.7 % (12.1-15.1) H 03/29/22 15:15 Plt Count 247 10^3/cmm (130-400) 03/29/22 15:15 MPV 9.9 fL (7.4-10.4) 03/29/22 15:15 Neut % (Auto) 81.0 % 03/29/22 15:15 Lymph % (Auto) 8.7 % 03/29/22 15:15 [place] % (Auto) 7.9 % 03/29/22 15:15 Eos % (Auto) 1.6 % 03/29/22 15:15 Baso % (Auto) 0.4 % 03/29/22 15:15 Neut # (Auto) 9.18 10^3/uL (1.8-7.7) H 03/29/22 15:15 Lymph # (Auto) 1.0 10^3/uL (0.8-4.8) 03/29/22 15:15 [place] # (Auto) 0.9 10^3/uL (0.2-0.9) 03/29/22 15:15 Eos # (Auto) 0.2 10^3/uL (0.0-0.8) 03/29/22 15:15 Baso # (Auto) 0.0 10^3/uL (0.0-0.1) 03/29/22 15:15 Nucleated RBC % (auto) 0 % 03/29/22 15:15 Nucleated RBCs # 0.0 /100WBC 03/29/22 15:15 Sodium 139 mmol/L (136-145) 03/29/22 15:15 Potassium 4.1 mmol/L (3.5-5.1) 03/29/22 15:15 Chloride 100 mmol/L (98-107) 03/29/22 15:15 Carbon Dioxide 29 mmol/L (22-29) 03/29/22 15:15 Anion Gap 14.1 (5-19) 03/29/22 15:15 BUN 32 mg/dL (8-23) H 03/29/22 15:15 Creatinine 0.8 mg/dL (0.5-0.9) 03/29/22 15:15 GFR Calculation 71.1 mL/min (90-130) L 03/29/22 15:15 Glucose 94 mg/dL (65-115) 03/29/22 15:15 Calculated Osmolality 295 mOsm/kg (285-295) 03/29/22 15:15 Calcium 9.3 mg/dL (8.5-10.5) 03/29/22 15:15 Total Bilirubin 0.7 mg/dL (0.15-1.2) 03/29/22 15:15 AST 31 U/L (0-32) 03/29/22 15:15 ALT 18 U/L (0-33) 03/29/22 15:15 Alkaline Phosphatase 142 U/L (35-105) H 03/29/22 15:15 Troponin T Baseline 98 ng/L (0-10) H 03/29/22 15:15 Troponin T 120 Minute 89.76 ng/L (0-10) H 03/29/22 17:03 Delta Troponin T -8.24 ABS# (0-10) L 03/29/22 17:03 NT-Pro-B Natriuret Pep 7832 pg/mL (0-125) H 03/29/22 15:15 Total Protein 7.2 g/dL (6.6-8.7) 03/29/22 15:15 Albumin 3.7 g/dL (3.5-5.2) 03/29/22 15:15 Globulin 3.5 g/dL (1.3-4.6) 03/29/22 15:15 Discharge Plan Discharge Patient Disposition: Home Clinical Impression: Cervical radiculopathy Condition: Stable Prescriptions: New prednisone 20 mg tablet 20 mg PO TID Qty: 15 0RF Rx Instructions: 1 p.o. 3 times daily x3 days, 1 p.o. twice daily x2 days, 1 p.o. daily x2 days diclofenac sodium 75 mg tablet,delayed release (DR/EC) 75 mg PO Q12H PRN (Reason: pain) Qty: 20 0RF tizanidine 4 mg capsule 4 mg PO Q6H PRN (Reason: muscle spasticity) Qty: 20 0RF Rx Instructions: do not exceed 3 doses per 24 hrs No Action multivitamin Tablet 1 tab PO QAM Tart Alonso Extract 1,000 mg capsule 1,000 mg PO QAM pregabalin [Lyrica] 75 mg capsule 75 mg PO BID Qty: 60 3RF alprazolam 0.5 mg Tablet 0.5 mg PO DAILY PRN (Reason: Anxiety) tramadol 100 mg tablet 50 mg PO DAILY PRN (Reason: Pain) lisinopril 20 mg Tablet 20 mg PO DAILY cefuroxime axetil 500 mg tablet 500 mg PO BID PRN (Reason: UTI) omega-3 fatty acids 1,000 mg Capsule 1,000 mg PO BEDTIME nitroglycerin [Nitrostat] 0.4 mg Tablet, Sublingual 0.4 mg SUBLINGUAL Q5M PRN (Reason: Chest Pain) Rx Instructions: do not exceed 3 doses per episode albuterol sulfate 90 mcg/actuation Hfa Aerosol Inhaler 2 puff INHALATION QID PRN (Reason: Shortness Of Breath) sertraline 100 mg tablet 100 mg PO QAM isosorbide mononitrate 60 mg tablet extended release 24 hr 60 mg PO QAM pantoprazole 40 mg tablet,delayed release (DR/EC) 40 mg PO BID metoprolol tartrate 25 mg tablet 25 mg PO BID potassium chloride 20 mEq tablet extended release 20 meq PO QAM atorvastatin 40 mg tablet 40 mg PO QAM Qty: 120 0RF clopidogrel 75 mg tablet 75 mg PO BEDTIME Qty: 120 0RF allopurinol 100 mg tablet 400 mg PO QAM Qty: 30 0RF aspirin [Adult Aspirin Regimen] 81 mg tablet,delayed release (DR/EC) 81 mg PO BEDTIME Qty: 120 0RF acetaminophen [Tylenol Arthritis Pain] 650 mg tablet extended release 650 mg PO BID Qty: 60 0RF furosemide 40 mg tablet 40 mg PO QAM Qty: 30 0RF Discharge Orders: Discharge ED (Routine); Ordered 03/29/22 Ordered By: Vincent Tate Referrals: Derek Dowd DO [Primary Care Provider] - Discharge Diet: Usual diet Discharge Activity: Increase activity as tolerated Patient Instructions: Opioid Safety, Pain Management Activity Restrictions/Additional Instructions: The arm discomfort is not improving in the next several days follow-up with your primary care doctor. Coding Level of Care Code ED Lead Infrastructure Architect for Dario Fwd Exam Detailed
--- NOTE | 2022-03-29 14:33 | XRR_ITS ---
PROCEDURE INFORMATION: Exam: XR Right Wrist Exam date and time: 03/29/2022 3:42 PM Age: 71 years old Clinical indication: Right; Patient HX: History--pt states that she has upper extremity RT arm swelling and pain in the RT wrist, RT elbow and RT shoulder that radiates up the side of the neck to the base of skull. PT states that shes had this pain since her angioplasty Tuesday. TECHNIQUE: Imaging protocol: Radiologic exam of the Right wrist. Views: 3 or more views. COMPARISON: CR XR elbow RT min 3V* [id number] 03/29/2022 3:38 PM FINDINGS: Bones/joints: Negative for acute bony abnormality a Soft tissues: Normal. XR/XR wrist RT min 3V* [id number] IMPRESSION: No acute findings.
--- NOTE | 2022-03-29 14:33 | XRR_ITS ---
PROCEDURE INFORMATION: Exam: XR Right Shoulder Exam date and time: 03/29/2022 3:36 PM Age: 71 years old Clinical indication: Right; Prior surgery; Surgery type: Angio, stents, bypass; Patient HX: History--pt states that she has upper extremity RT arm swelling and pain in the RT wrist, RT elbow and RT shoulder that radiates up the side of the neck to the base of skull. PT states that shes had this pain since her angioplasty Tuesday. TECHNIQUE: Imaging protocol: Radiologic exam of the Right shoulder. Views: 2 or more views. COMPARISON: CR XR chest 1V portable [id number] 03/29/2022 3:22 PM FINDINGS: Bones/joints: Negative for acute bony abnormality. Metallic sternotomy wires are present. Soft tissues: Normal. XR/XR shoulder RT min 2V* [id number] IMPRESSION: Negative for acute bony abnormality.
--- NOTE | 2022-03-29 14:33 | USCV_ITS ---
Essie Alejandre Age: 71 Gender: F : 1950 Exam Date: 03/29/2022 15:08 Ordering Phys: Vincent Tate DO Technologist: Horacio Anderson Exam Location: [facility] [place] Indication: rt arm pain and swelling HISTORY: Upper extremity pain. PROCEDURES: Venous duplex imaging was performed in only the right upper extremity. The following venous structures were evaluated: internal jugular vein, subclavian vein, axillary vein, and brachial veins. In addition, the basilic vein and cephalic vein. FINDINGS: No evidence of deep vein thrombosis or superficial thrombophlebitis in the right upper extremity. CONCLUSIONS No right upper extremity DVT. Dr. Naina Harp DO (Electronically Signed) Final Date: 29 March 2022 15:53 S
--- NOTE | 2022-03-29 14:33 | XRR_ITS ---
PROCEDURE INFORMATION: Exam: XR Right Elbow Exam date and time: 03/29/2022 3:38 PM Age: 71 years old Clinical indication: Right; Patient HX: History--pt states that she has upper extremity RT arm swelling and pain in the RT wrist, RT elbow and RT shoulder that radiates up the side of the neck to the base of skull. PT states that shes had this pain since her angioplasty Tuesday. TECHNIQUE: Imaging protocol: Radiologic exam of the Right elbow. Views: 3 or more views. COMPARISON: CR XR shoulder RT min 2V* [id number] 03/29/2022 3:36 PM FINDINGS: Bones/joints: Negative for acute bony abnormality. Soft tissues: Unremarkable XR/XR elbow RT min 3V* [id number] IMPRESSION: No acute findings.
--- NOTE | 2022-03-29 14:50 | ECG_ITS ---
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 Measurements Intervals [place] Rate: 69 P: 0 [place]: 0 QRS: -66 QRSD: 160 T: 106 QT: 490 QTc: 528 Interpretive Statements ELECTRONIC VENTRICULAR PACEMAKER Compared to ECG 03/24/2022 18:32:18 No significant changes Electronically Signed On 03-29-2022 17:04:45 SOLID STATE TESTER by Kel Molina M.D. [email or web address] medical [email or web address] [email or web address] county memorial hospitalIntechra [email or web address]/store/[id number]
[2022-03-29 15:29] LABS: Basophils % 0.4 %; Eosinophils # 0.2 10^3/uL (0.0-0.8); Eosinophils % 1.6 %; Hematocrit 33.4 % (37.0-47.0); Hemoglobin 10.5 g/dL (11.5-15.3); Lymphocytes % 8.7 %; Mean Corpuscular HGB Conc 31.4 g/dL (30.0-36.0); Mean Corpuscular Volume 101.8 fl (81-99); Mean Platelet Volume 9.9 fL (7.4-10.4); Monocytes # 0.9 10^3/uL (0.2-0.9); Monocytes % 7.9 %; Neutrophils # 9.18 10^3/uL (1.8-7.7); Nucleated Red Blood Cells % 0 %; Platelet Count 247 10^3/cmm (130-400); Red Blood Count 3.28 10^6/uL (4.1-5.3); Red Cell Distribution Width 15.7 % (12.1-15.1); White Blood Count 11.3 10^3/uL (4.0-10.0)
[2022-03-29 15:30] VITALS: PULSE 71; O2SAT 95
[2022-03-29 15:37] LABS: Slide Review Slide Review Perform
--- NOTE | 2022-03-29 15:49 | ECG_ITS ---
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 Measurements Intervals [place] Rate: 73 P: 0 [place]: 0 QRS: -66 QRSD: 155 T: 103 QT: 510 QTc: 563 Interpretive Statements ELECTRONIC VENTRICULAR PACEMAKER Compared to ECG 03/29/2022 14:50:44 No significant changes Electronically Signed On 03-29-2022 18:27:32 WET WHEELER by Kel Molina M.D. [email or web address] [email or web address] county hospitalBindocleveland clinic hillcrest [id number]
[2022-03-29 16:00] VITALS: PULSE 71; O2SAT 95
[2022-03-29 16:06] LABS: Troponin(5th) Baseline 98 ng/L (0-10)
[2022-03-29 16:15] LABS: Alanine Aminotransferase 18 U/L (0-33); Albumin Level 3.7 g/dL (3.5-5.2); Alkaline Phosphatase 142 U/L (35-105); Anion Gap 14.1 (5-19); Aspartate Amino Transferase 31 U/L (0-32); Blood Urea Nitrogen 32 mg/dL (8-23); Calcium 9.3 mg/dL (8.5-10.5); Carbon Dioxide 29 mmol/L (22-29); Chloride 100 mmol/L (98-107); Creatinine Clr Calc Pharmacy 72.7121; Globulin 3.5 g/dL (1.3-4.6); Glomerular Filtration Rate 71.1 mL/min (90-130); Glucose 94 mg/dL (65-115); NT Pro B Type Natriuretic Pept 7832 pg/mL (0-125); Osmolality Calculated 295 mOsm/kg (285-295); Potassium 4.1 mmol/L (3.5-5.1); Sodium 139 mmol/L (136-145); Total Bilirubin 0.7 mg/dL (0.15-1.2); Total Protein 7.2 g/dL (6.6-8.7)
[2022-03-29] MEDS: HYDROcodone-acetaminophen 5-325 mg Tablet 2 TAB PO (16:23)
[2022-03-29 16:30] VITALS: PULSE 70; O2SAT 94
[2022-03-29] MEDS: dexamethasone 10 mg/mL INJ IVP (17:27)
[2022-03-29] MEDS: ketorolac 30 mg/mL INJ IVP (17:28)
[2022-03-29] MEDS: orphenadrine 30 mg/mL Inj 2 mL 60 MG IVP (17:28)
[2022-03-29 17:58] LABS: Troponin 5 2HR 89.76 ng/L (0-10)
[2022-03-29 17:59] LABS: Troponin 5 2HR Delta -8.24 ABS# (0-10)
== END 2022-03-29 18:03 | disposition home or self-care (01) ==
PROVIDERS: Emergency Provider Family Medicine; PCP Family Medicine
DX: M54.12 Radiculopathy, cervical region (principal); Z79.02 Long term (current) use of antithrombotics/antiplatelets; Z79.82 Long term (current) use of aspirin; Z95.1 Presence of aortocoronary bypass graft; Z95.810 Presence of automatic (implantable) cardiac 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; I13.0 Hypertensive heart and chronic kidney disease with heart failure and stage 1 through stage 4 chronic kidney disease, or unspecified chronic kidney disease; N18.30 Chronic kidney disease, stage 3 unspecified; I50.9 Heart failure, unspecified; E78.5 Hyperlipidemia, unspecified; I25.2 Old myocardial infarction
CPT/HCPCS: 36415; 71045; 73030; 73080; 73110; 80053; 83880; 84484; 85025; 93005; 93971; 96374; 96375; 99285; J1100; J1885; J2360

== ENCOUNTER 2022-05-04 15:10 | Emergency (ER) | payer BC, MEDICARE, SELFPAY ==
[2022-05-04] VITALS (54 sets, daily range): BP systolic 136–179; BP diastolic 60–132; PULSE 70–87; RESP 12–32; TEMP 36.4; O2SAT 93–99
--- NOTE | 2022-05-04 15:25 | ECG_ITS ---
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 Measurements Intervals [place] Rate: 71 P: 0 [place]: 0 QRS: -65 QRSD: 155 T: 97 QT: 500 QTc: 545 Interpretive Statements ELECTRONIC VENTRICULAR PACEMAKER ABNORMAL RHYTHM ECG INTERPRETATION BASED ON A DEFAULT AGE OF 40 YEARS Compared to ECG 03/29/2022 15:39:56 No significant changes Electronically Signed On 05-05-2022 16:51:38 OUTBOARD TECHNICIAN by Denise Matos M.D. [id number]
--- NOTE | 2022-05-04 17:41 | W.ED.CHESTPA ---
HPI - Chest Pain General: Chief Complaint: Chest Pain Stated Complaint: chest pains, SOB, blurry vision, slurred speech Time Seen by Provider: 05/04/22 17:27 History of Present Illness: 71-year-old female who comes in with chest pain and shortness of breath. This started this morning at 9 AM. She had an episode of chest discomfort which lasted about 5 minutes. She describes it as a tight sensation in her midsternal area with associated shortness of breath. She states it went away after taking 2 sublingual nitroglycerin. She had a second episode around 2 PM today which again went completely away after 2 sublingual nitroglycerin. She has had associated shortness of breath as well as dyspnea on exertion. She states her shortness of breath is gotten much worse this morning and is continued throughout the day. She also has associated orthopnea. She had a 15 pound weight gain since yesterday with increasing peripheral edema of her lower extremities. Patient was recently admitted to the hospital for congestive heart failure, discharged 2 weeks ago. She denies changing her fluid intake or missing any doses of her medications. Associated symptoms: Deny abdominal pain, dyspnea, fever(s), nausea or vomiting Review of Systems General: Reports: 10 or more systems reviewed and unremarkable except in HPI and below Const: Reports: other (Denies recent illness. ); Denies: fever(s) or chills Eyes: Denies: change in vision or eye discharge ENMT: Denies: throat pain or oral sores Card: Reports: chest pain, edema, swelling of feet/ankles, dyspnea on exertion and orthopnea Resp: Denies: dyspnea, productive cough, non-productive cough or wheezing GI: Denies: abdominal pain, nausea, vomiting, diarrhea or constipation : Denies: difficulty voiding, dysuria or urinary frequency Musc: Denies: joint pain or joint swelling Skin/Breast: Denies: rash or sores Neuro: Denies: headache(s), weakness in extremities or sensory changes Psych: Denies: anxiety or depression Endo: Denies: polyuria or polydipsia Jerardo/Lymph: Denies: easy bruising PFS ED PFSH: Medical History Acute cystitis without hematuria Anticoagulant long-term use Atrial fibrillation Balance disorder Cardiac 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 therapy 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 (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 DIE MAKER 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-D) in place Cardiomyopathy CHF (congestive heart failure) CHF (congestive heart failure) Chronic renal insufficiency, stage II (mild) Chronic tophaceous gout of both hands CKD (chronic kidney disease) stage 3, GFR 30-59 ml/min Cognitive impairment Elevated troponin I level GERD (gastroesophageal reflux disease) Gout HTN (hypertension) Hyperlipidemia Intracranial atherosclerosis Iron deficiency anemia Left bundle branch block MRSA carrier NSTEMI (non-ST elevated myocardial infarction) BASIA (obstructive sleep apnea) PAD (peripheral artery disease) Recurrent UTI Renal artery stenosis Right internal carotid artery aneurysm Sleep apnea Vertebral artery stenosis Vertebrobasilar insufficiency Surgical History H/O cardiac radiofrequency ablation S/P angioplasty with stent S/P appendectomy S/P CABG (coronary artery bypass graft) S/P section S/P hysterectomy S/P ICD (internal cardiac 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) procedure Status post aorto-coronary artery bypass graft Status post tubal ligation Family History Father , AT AGE 65 Hyperlipidemia CAD (coronary artery disease) Hypertension Rheumatoid arthritis Mother , AT AGE 65 Hyperlipidemia CAD (coronary artery disease) Hypertension Diabetes Sister Hyperlipidemia CAD (coronary artery disease) Hypertension Diabetes Other Cancer Social History Smoking and tobacco status: never smoked Second hand smoke exposure: No Alcohol intake: never Desire information about alcohol rehabilitation?: No Counseling given: No Desire information about substance/drug rehabilitation?: No Counseling given: No Marital status: Current occupational status: retired History of recent travel: No Female Reproductive History: Spontaneous abortions: No Physical Exam Const: COMMON NORMALS: no acute distress, patient oriented x3, healthy appearing, alert and well nourished HENMT: COMMON NORMALS: normocephalic and atraumatic HEAD & SCALP: normocephalic and atraumatic Eye: COMMON NORMALS: conjunctivae normal GENERAL EYE: appearance normal, both eyes and all related structures CONJUNCTIVA: Yes conjunctivae normal SCLERA: sclerae normal Chest: CHEST: Yes Symmetrical chest wall rise Resp: COMMON NORMALS: normal respiratory effort, No retractions, No use of accessory muscles and clear to auscultation bilaterally AUSCULTATION: clear to auscultation bilaterally Cardio: COMMON NORMALS: regular rate, regular rhythm, S1 normal heart sound present and S2 normal heart sound present RATE: regular rate RHYTHM: regular rhythm HEART SOUNDS: S1 normal heart sound present, S2 normal heart sound present, no gallops, no murmurs and no rubs GI: COMMON NORMALS: Normal to inspection, nondistended, normoactive bowel sounds present, Soft to palpation, non-tender and no masses PALPATION: Yes Soft to palpation Extremity: OTHER: 4+ pitting edema lower extremities bilaterally extending to the thigh level, pulses are intact. Neuro: COMMON NORMALS: patient oriented x3 SENSORIUM/ORIENTATION: Yes alert Course ED course: Had an IV placed and labs obtained. She has had serial EKGs performed which show a paced rhythm. Chest x-ray shows no infiltrate or vascular congestion. She does have an elevated [place] 6319. Her initial troponin is 24. Repeat 2-hour troponin is again 24. Patient has been given 80 mg of Lasix IV and has urinated 3 times. Her breathing is better. She was able to get up to the bathroom without becoming short of breath or developing chest pain. With flat, stable troponins, no EKG changes and a recent cardiac work-up, I do not feel the patient needs admission. She does have some mildly elevated blood pressure readings and I feel that this may be contributing to her congestive heart failure as well as her chest pain. I have instructed her to monitor blood pressure and record the values twice daily at home. I am going to have her increase her Lasix to 80 mg in the morning and 40 mg at noon for the next 4 days. I have instructed the patient she needs to keep her legs elevated above her heart level as well as wear compression stockings. Return precautions have been discussed. Reevaluation(s): Reevaluation #1: Patient is feeling better, breathing better. No chest pain. Discussed evaluation with the patient and plan for discharge home and the patient is understanding of that. Vital Signs: Vital signs: Vital Signs Temperature 97.6 F 05/04/22 15:17 Pulse Rate 77 05/04/22 21:45 Respiratory Rate 17 05/04/22 21:45 Blood Pressure 147/105 05/04/22 21:45 Pulse Oximetry 95 05/04/22 21:45 Oxygen Delivery Me thod 05/04/22 15:17 MDM - Chest Pain Medical Decision Making 71-year-old female who presents with chest pain and shortness of breath with exertion. She does have significant peripheral edema and has had a 15 pound weight gain over the past 24 hours. She has been doubling up on her Lasix for the past 3 days with no improvement of her symptoms. In further discussion with her, she has been sitting in a recliner with her feet probably not adequately elevated. The chest pain is very short-lived in nature. We will start an IV, give the patient 80 mg of Lasix IV here. Will obtain labs including serial troponins.. Lab Data 05/04/22 18:15 05/04/22 18:15 Radiology Impressions Chest X-Ray 05/04/22 18:19 IMPRESSION: No acute findings. Laboratory Results WBC 7.9 10^3/uL (4.0-10.0) 05/04/22 18:15 RBC 3.48 10^6/uL (4.1-5.3) L 05/04/22 18:15 Hgb 10.3 g/dL (11.5-15.3) L 05/04/22 18:15 Hct 34.1 % (37.0-47.0) L 05/04/22 18:15 MCV 98.0 fl (81-99) 05/04/22 18:15 MCH 29.6 pg (28.0-34.0) 05/04/22 18:15 MCHC 30.2 g/dL (30.0-36.0) 05/04/22 18:15 RDW 15.8 % (12.1-15.1) H 05/04/22 18:15 Plt Count 189 10^3/cmm (130-400) 05/04/22 18:15 MPV 10.8 fL (7.4-10.4) H 05/04/22 18:15 Neut % (Auto) 72.1 % 05/04/22 18:15 Lymph % (Auto) 17.1 % 05/04/22 18:15 Taylor % (Auto) 8.8 % 05/04/22 18:15 Eos % (Auto) 1.1 % 05/04/22 18:15 Baso % (Auto) 0.5 % 05/04/22 18:15 Neut # (Auto) 5.72 10^3/uL (1.8-7.7) 05/04/22 18:15 Lymph # (Auto) 1.4 10^3/uL (0.8-4.8) 05/04/22 18:15 Taylor # (Auto) 0.7 10^3/uL (0.2-0.9) 05/04/22 18:15 Eos # (Auto) 0.1 10^3/uL (0.0-0.8) 05/04/22 18:15 Baso # (Auto) 0.0 10^3/uL (0.0-0.1) 05/04/22 18:15 Nucleated RBC % (auto) 0 % 05/04/22 18:15 Nucleated RBCs # 0.0 /100WBC 05/04/22 18:15 PT 15.50 SECONDS (12.1-14.9) H 05/04/22 19:44 INR 1.20 (0.8-1.2) 05/04/22 19:44 APTT 30.2 SECONDS (23.9-36.7) 05/04/22 19:44 Sodium 138 mmol/L (136-145) 05/04/22 18:15 Potassium 3.9 mmol/L (3.5-5.1) 05/04/22 18:15 Chloride 104 mmol/L (98-107) 05/04/22 18:15 Carbon Dioxide 21 mmol/L (22-29) L 05/04/22 18:15 Anion Gap 16.9 (5-19) 05/04/22 18:15 BUN 39 mg/dL (8-23) H 05/04/22 18:15 Creatinine 1.2 mg/dL (0.5-0.9) H 05/04/22 18:15 GFR Calculation 44.5 mL/min (90-130) L 05/04/22 18:15 Glucose 96 mg/dL (65-115) 05/04/22 18:15 Calculated Osmolality 295 mOsm/kg (285-295) 05/04/22 18:15 Calcium 8.9 mg/dL (8.5-10.5) 05/04/22 18:15 Total Bilirubin 0.5 mg/dL (0.15-1.2) 05/04/22 18:15 AST 40 U/L (0-32) H 05/04/22 18:15 ALT 24 U/L (0-33) 05/04/22 18:15 Alkaline Phosphatase 221 U/L (35-105) H 05/04/22 18:15 Troponin T Baseline 24 ng/L (0-10) H 05/04/22 18:15 Troponin T 120 Minute 24.37 ng/L (0-10) H 05/04/22 20:16 Delta Troponin T 0.37 ABS# (0-10) 05/04/22 20:16 NT-Pro-B Natriuret Pep 6319 pg/mL (0-125) H 05/04/22 18:15 Total Protein 7.2 g/dL (6.6-8.7) 05/04/22 18:15 Albumin 3.9 g/dL (3.5-5.2) 05/04/22 18:15 Globulin 3.3 g/dL (1.3-4.6) 05/04/22 18:15 Lipase 45 U/L (13-60) 05/04/22 18:15 Urine Color Yellow (Yellow) 05/04/22 21:40 Urine Appearance Clear (CLEAR) 05/04/22 21:40 Urine pH 5 (5-7) 05/04/22 21:40 Ur Specific [place] 1.010 (1.005-1.030) 05/04/22 21:40 Urine Protein 1+ (Negative) H 05/04/22 21:40 Urine Glucose (UA) Norm (Normal) 05/04/22 21:40 Urine Ketones Negative (Negative) 05/04/22 21:40 Urine Blood Neg (Negative) 05/04/22 21:40 Urine Nitrate Negative (Negative) 05/04/22 21:40 Urine Bilirubin Neg (Negative) 05/04/22 21:40 Urine Urobilinogen Norm mg/dL (Negative) 05/04/22 21:40 Ur Leukocyte Esterase Negative (Negative) 05/04/22 21:40 Urine RBC None /hpf (0-2) 05/04/22 21:40 Urine WBC 0-4 /hpf (0-5) H 05/04/22 21:40 Ur Squamous Epith Cells 5-10 /hpf (0-5) H 05/04/22 21:40 Amorphous Sediment 1+ /hpf 05/04/22 21:40 Urine Bacteria None /hpf (NONE) 05/04/22 21:40 EKG Data EKG 1: I personally reviewed and interpreted this EKG as follows: Interpretation: electronically paced rhythm Discharge Plan Discharge Patient Disposition: Home Clinical Impression: Congestive heart failure, Chest pain, Edema, peripheral, Hypertension, Renal insufficiency Condition: Stable Prescriptions: No Action multivitamin Tablet 1 tab PO QAM Tart Alonso Extract 1,000 mg capsule 1,000 mg PO QAM pantoprazole 40 mg tablet,delayed release (DR/EC) 40 mg PO BID Qty: 60 3RF pregabalin [Lyrica] 75 mg capsule 75 mg PO BID Qty: 60 3RF lisinopril 20 mg tablet 20 mg PO DAILY Qty: 90 2RF Rx Instructions: Take 1 tablet by mouth daily. diclofenac sodium 75 mg tablet,delayed release (DR/EC) See Rx Instructions .ROUTE .COMPLEX Qty: 20 0RF Dose Instruction: TAKE 1 TABLET BY MOUTH EVERY 12 HOURS NEEDED FOR PAIN Rx Instructions: TAKE 1 TABLET BY MOUTH EVERY 12 HOURS NEEDED FOR PAIN alprazolam 0.5 mg Tablet 0.5 mg PO DAILY PRN (Reason: Anxiety) tramadol 100 mg tablet 50 mg PO DAILY PRN (Reason: Pain) cefuroxime axetil 500 mg tablet 500 mg PO BID PRN (Reason: UTI) prednisone 20 mg tablet 20 mg PO TID Qty: 15 0RF Rx Instructions: 1 p.o. 3 times daily x3 days, 1 p.o. twice daily x2 days, 1 p.o. daily x2 days tizanidine 4 mg capsule 4 mg PO Q6H PRN (Reason: muscle spasticity) Qty: 20 0RF Rx Instructions: do not exceed 3 doses per 24 hrs omega-3 fatty acids 1,000 mg Capsule 1,000 mg PO BEDTIME nitroglycerin [Nitrostat] 0.4 mg Tablet, Sublingual 0.4 mg SUBLINGUAL Q5M PRN (Reason: Chest Pain) Rx Instructions: do not exceed 3 doses per episode albuterol sulfate 90 mcg/actuation Hfa Aerosol Inhaler 2 puff INHALATION QID PRN (Reason: Shortness Of Breath) sertraline 100 mg tablet 100 mg PO QAM isosorbide mononitrate 60 mg tablet extended release 24 hr 60 mg PO QAM metoprolol tartrate 25 mg tablet 25 mg PO BID potassium chloride 20 mEq tablet extended release 20 meq PO QAM atorvastatin 40 mg tablet 40 mg PO QAM Qty: 120 0RF clopidogrel 75 mg tablet 75 mg PO BEDTIME Qty: 120 0RF allopurinol 100 mg tablet 400 mg PO QAM Qty: 30 0RF aspirin [Adult Aspirin Regimen] 81 mg tablet,delayed release (DR/EC) 81 mg PO BEDTIME Qty: 120 0RF acetaminophen [Tylenol Arthritis Pain] 650 mg tablet extended release 650 mg PO BID Qty: 60 0RF furosemide 40 mg tablet 40 mg PO QAM Qty: 30 0RF Discharge Orders: Discharge ED (Routine); Ordered 05/04/22 Ordered By: Sarahi Montilla Referrals: Derek Dowd DO [Primary Care Provider] - Patient Instructions: Congestive Heart Failure, Chest Pain (ED), Leg Edema (ED), Hypertension (ED), Opioid Safety, Pain Management Activity Restrictions/Additional Instructions: Increase your Lasix to 80 mg in the morning and 40 mg at noon for the next 4 days. You need to wear compression stockings to help get the fluid out of your legs. You need to keep your legs elevated as much as possible. Monitor your blood pressure and keep track of the values twice daily and keep a record of those values so you can follow-up with your primary care doctor to have your blood pressure rechecked. Return to the ER if you are having increased shortness of breath, increased chest pain or persistently elevated blood pressure readings. Follow-up in 2 to 3 days with your primary care doctor. Coding Level of Care Code ED Clay Grinder for Dario Fwd Exam Detailed Medical Decision Making High Complexity
--- NOTE | 2022-05-04 18:19 | XRR_ITS ---
PROCEDURE INFORMATION: Exam: XR Chest Exam date and time: 05/04/2022 6:28 PM Age: 71 years old Clinical indication: Chest wall pain; Prior surgery; Surgery date: 6+ months; Surgery type: Open heart; Patient HX: SOB; Additional info: Chest pain TECHNIQUE: Imaging protocol: Radiologic exam of the chest. Views: 1 view. COMPARISON: CR XR chest 1V portable [id number] 03/29/2022 3:22 PM FINDINGS: Lungs: Unremarkable. No consolidation. [id number] right hemidiaphragm elevation. Pleural spaces: Unremarkable. No pleural effusion. No pneumothorax. Heart/Mediastinum: The heart is large with CABG, vascular calcification, and left-sided pacing device. No significant change has occurred from 03/29/2022. Bones/joints: Unremarkable. XR/XR chest 1V portable [id number] IMPRESSION: No acute findings.
--- NOTE | 2022-05-04 18:19 | ECG_ITS ---
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 Measurements Intervals [place] Rate: 69 P: 0 IN: 0 QRS: -62 QRSD: 153 T: 103 QT: 498 QTc: 537 Interpretive Statements ELECTRONIC VENTRICULAR PACEMAKER ABNORMAL RHYTHM ECG Compared to ECG 05/04/2022 15:22:36 No significant changes Electronically Signed On 05-05-2022 16:50:53 EXPLOSIVE OPERATOR by Denise Matos M.D. [id number]
[2022-05-04 18:29] LABS: Basophils % 0.5 %; Eosinophils # 0.1 10^3/uL (0.0-0.8); Eosinophils % 1.1 %; Hematocrit 34.1 % (37.0-47.0); Hemoglobin 10.3 g/dL (11.5-15.3); Lymphocytes # 1.4 10^3/uL (0.8-4.8); Lymphocytes % 17.1 %; Mean Corpuscular HGB Conc 30.2 g/dL (30.0-36.0); Mean Corpuscular Hemoglobin 29.6 pg (28.0-34.0); Mean Platelet Volume 10.8 fL (7.4-10.4); Monocytes # 0.7 10^3/uL (0.2-0.9); Monocytes % 8.8 %; Neutrophils # 5.72 10^3/uL (1.8-7.7); Neutrophils % 72.1 %; Nucleated Red Blood Cells % 0 %; Platelet Count 189 10^3/cmm (130-400); Red Blood Count 3.48 10^6/uL (4.1-5.3); Red Cell Distribution Width 15.8 % (12.1-15.1); White Blood Count 7.9 10^3/uL (4.0-10.0)
[2022-05-04 18:51] LABS: Troponin(5th) Baseline 24 ng/L (0-10)
[2022-05-04 18:58] LABS: Alanine Aminotransferase 24 U/L (0-33); Albumin Level 3.9 g/dL (3.5-5.2); Alkaline Phosphatase 221 U/L (35-105); Anion Gap 16.9 (5-19); Aspartate Amino Transferase 40 U/L (0-32); Blood Urea Nitrogen 39 mg/dL (8-23); Calcium 8.9 mg/dL (8.5-10.5); Carbon Dioxide 21 mmol/L (22-29); Chloride 104 mmol/L (98-107); Globulin 3.3 g/dL (1.3-4.6); Glomerular Filtration Rate 44.5 mL/min (90-130); Glucose 96 mg/dL (65-115); Lipase 45 U/L (13-60); NT Pro B Type Natriuretic Pept 6319 pg/mL (0-125); Osmolality Calculated 295 mOsm/kg (285-295); Potassium 3.9 mmol/L (3.5-5.1); Sodium 138 mmol/L (136-145); Total Bilirubin 0.5 mg/dL (0.15-1.2); Total Protein 7.2 g/dL (6.6-8.7)
[2022-05-04] MEDS: FUROsemide 10 mg/mL SDV 10mL 80 MG IVP (19:16)
[2022-05-04] MEDS: aspirin 81 mg Chew Tablet 324 MG PO (19:16)
[2022-05-04 20:02] LABS: Partial Thromboplastin Time 30.2 SECONDS (23.9-36.7)
--- NOTE | 2022-05-04 20:19 | ECG_ITS ---
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 Measurements Intervals [place] Rate: 72 P: 0 MT: 0 QRS: -69 QRSD: 157 T: 101 QT: 496 QTc: 545 Interpretive Statements ELECTRONIC VENTRICULAR PACEMAKER ABNORMAL RHYTHM ECG Compared to ECG 05/04/2022 19:19:56 No significant changes Electronically Signed On 05-05-2022 16:55:44 MULTI OPERATION FORMING MACHINE SETTER by Denise Matos M.D. [id number]
[2022-05-04 20:51] LABS: Troponin 5 2HR 24.37 ng/L (0-10)
[2022-05-04 21:01] LABS: Troponin 5 2HR Delta 0.37 ABS# (0-10)
[2022-05-04 22:28] LABS: Add Urine Microscopic? YES; Bilirubin Urine Neg (Negative); Blood Urine Neg (Negative); Glucose Urine UA Norm (Normal); Ketones Urine Negative (Negative); Leukocyte Esterase Urine Negative (Negative); Nitrate Urine Negative (Negative); Protein Urine 1+ (Negative); Urine Appearance Clear (CLEAR); Urine Color Yellow (Yellow); Urobilinogen Urine Norm (Negative); pH Urine 5 (5-7)
[2022-05-04 22:29] LABS: Add Urine Culture? No; Amorphous Sediment Urine 1+ /hpf; WBC Urine 0-4 /hpf (0-5)
== END 2022-05-04 22:42 | disposition home or self-care (01) ==
PROVIDERS: Emergency Provider Emergency Medicine; PCP Family Medicine
DX: R07.9 Chest pain, unspecified (principal); R60.0 Localized edema; N28.9 Disorder of kidney and ureter, unspecified; Z79.02 Long term (current) use of antithrombotics/antiplatelets; Z79.82 Long term (current) use of aspirin; I13.0 Hypertensive heart and chronic kidney disease with heart failure and stage 1 through stage 4 chronic kidney disease, or unspecified chronic kidney disease; N18.30 Chronic kidney disease, stage 3 unspecified; I50.9 Heart failure, unspecified; E78.5 Hyperlipidemia, unspecified; I25.2 Old myocardial infarction; Z95.1 Presence of aortocoronary bypass graft; Z95.810 Presence of automatic (implantable) cardiac 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
CPT/HCPCS: 36415; 71045; 80053; 81001; 83690; 83880; 84484; 85025; 85610; 85730; 93005; 96374; 99285; J1940

== ENCOUNTER → 2022-05-14 10:02 | Outpatient (BNVA) | payer BC, MEDICARE, SELFPAY | PROVIDERS: PCP Family Medicine; Visit Provider Internal Medicine Cardiovascular Disease | DX: I67.1 Cerebral aneurysm, nonruptured (principal); Z79.01 Long term (current) use of anticoagulants; I70.1 Atherosclerosis of renal artery; Z95.1 Presence of aortocoronary bypass graft; G45.0 Vertebro-basilar artery syndrome; E78.5 Hyperlipidemia, unspecified; I13.0 Hypertensive heart and chronic kidney disease with heart failure and stage 1 through stage 4 chronic kidney disease, or unspecified chronic kidney disease; N18.31 Chronic kidney disease, stage 3a; I50.33 Acute on chronic diastolic (congestive) heart failure | CPT/HCPCS: 99215 ==

== ENCOUNTER → 2022-07-12 11:01 | Outpatient (BNVA) | payer BC, MEDICARE, SELFPAY | PROVIDERS: PCP Family Medicine; Visit Provider Nurse Practitioner Family | DX: R07.9 Chest pain, unspecified (principal); Z95.810 Presence of automatic (implantable) cardiac 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; R53.83 Other fatigue; I42.9 Cardiomyopathy, unspecified | CPT/HCPCS: 99214 ==

== ENCOUNTER → 2022-07-13 11:07 | Outpatient (BNVA) | payer BC, MEDICARE, SELFPAY | PROVIDERS: PCP Family Medicine; Visit Provider Family Medicine | DX: E78.5 Hyperlipidemia, unspecified (principal); E83.42 Hypomagnesemia; I12.9 Hypertensive chronic kidney disease with stage 1 through stage 4 chronic kidney disease, or unspecified chronic kidney disease; I50.33 Acute on chronic diastolic (congestive) heart failure; N18.30 Chronic kidney disease, stage 3 unspecified; R53.83 Other fatigue; N39.0 Urinary tract infection, site not specified | CPT/HCPCS: 80053; 80061; 81003; 82607; 82652; 83540; 83735; 83880; 84439; 84443; 84550; 85025 ==

== ENCOUNTER 2022-08-12 10:19 | Outpatient (CLI) | payer BC, MEDICARE, SELFPAY ==
--- NOTE | 2022-08-12 11:04 | ECG_ITS ---
[facility] Test Date: 2022-08-12 Pat Name: Essie Alejandre Department: Room: Gender: Female Emergency Room Doctor: : 1950 Requested By: Linda Webster Order Number: [id number] Jj MD: Kel Molina M.D. Interpretive Statements NAME OF STUDY: LEXISCAN SESTAMIBI STRESS TEST INDICATION: [WORSENING FATIGUE/CP, ] Procedure: At the baseline, the blood pressure was 134/78 mmHg with a heart rate of 71 bpm. The electrocardiogram showed paced rhythm. The Lexiscan was infused over a period of 20 seconds. A total of 0.4 mg of Lexiscan was infused. The stress phase was continued for a total of 5 minutes. Heart rate was at the end of stress phase was 70 bpm and a blood pressure of 140/75 mmHg. The EKG at the peak infusion revealed paced rhythm without significant changes. Sestamibi was injected 20 seconds after the Lexiscan infusion. Blood pressure at the end of recovery phase was 137/75 mmHg with a heart rate of 70 bpm. Conclusion: 1. Normal EKG response to Lexiscan infusion 2. No Lexiscan induced chest pain or cardiac arrhythmia. 3. Normal blood pressure and heart rate response. 4. Sestamibi/sestamibi perfusion scan pending; see separate report. Electronically Signed On 08-15-2022 15:14:41 CDT by Kel Molina M.D. [id number]
--- NOTE | 2022-08-12 11:05 | NMCV_ITS ---
NM shireen perf SPECT r/s* [id number] Essie Alejandre Age: 71 Gender: F : 1950 Exam Date: 08/12/2022 12:12 Ordering Phys: Linda Webster Technologist: MARILYN Sneed Exam Location: [facility] Indications: CORONARY ANGIOPLASTY STATUS, CARDIOMYOPATHY STRESS TEST Please see separate stress test report in [facility] for full findings IMAGE PROTOCOL Rest/Stress 1 Lexiscan Day Radiopharmaceutical Dose (mCi) Administration Site Administered by Rest: Tc-99m 10.5 IV MARILYN Pozo Sestamibi Stress:Tc-99m 33.0 IV MARILYN Sneed Sestamiluis Rest: 12-Aug-2022 60 Discovery 630 Stress: 12-Aug-2022 30 Discovery 630 0.4mg Lexiscan. Images obtained in supine and prone position. SPECT RESULTS Technical Quality: Excellent Raw Data Analysis: Normal Image Corrections: No attenuation or motion correction applied Summed Stress Score: 3 Summed Rest Score: 2 Summed Difference Score: 1 PERFUSION FINDINGS There is a small in size, fixed perfusion defect noted in the inferolateral wall. 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 FUNCTIONAL RESULTS (calculated via Gated SPECT) Stress Image LV EF (%): 39 Stress EDV (mL):138 TID: 0.99 Stress ESV (mL):84 FUNCTIONAL FINDINGS: LV systolic function is moderately reduced with EF of 39% IMPRESSIONS 1. 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 2. LV systolic function is moderately reduced Kel Molina MD (Electronically Signed) Final Date: 14 August 2022 14:40 S
[2022-08-12 11:53] VITALS: BMI 31.6
[2022-08-12] MEDS: regadenoson 0.4 Mg/5 ml Syringe IVP (12:52)
[2022-08-12 13:12] VITALS: BP 139/77; PULSE 70
== END 2022-08-12 10:20 | disposition home or self-care (01) ==
LOC: CDL 10:21
PROVIDERS: PCP Family Medicine; Visit Provider Nurse Practitioner Family
DX: R07.9 Chest pain, unspecified (principal); R53.83 Other fatigue; I42.9 Cardiomyopathy, unspecified; Z98.61 Coronary angioplasty status; Z95.810 Presence of automatic (implantable) cardiac 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; I25.2 Old myocardial infarction; I50.20 Unspecified systolic (congestive) heart failure
CPT/HCPCS: 36415; 78452; 80053; 80061; 81003; 82607; 82652; 83540; 83735; 83880; 84439; 84443; 84550; 85025; 93017; 96374; A9500; J2785

== ENCOUNTER → 2022-08-31 09:39 | Outpatient (BNVA) | payer BC, MEDICARE, SELFPAY | PROVIDERS: PCP Family Medicine; Referring Provider Family Medicine; Visit Provider Physician Assistant | DX: M47.812 Spondylosis without myelopathy or radiculopathy, cervical region (principal); M54.2 Cervicalgia; G89.29 Other chronic pain | CPT/HCPCS: 72050 ==

== ENCOUNTER → 2022-09-14 09:21 | Outpatient (BNVA) | payer BC, MEDICARE, SELFPAY | PROVIDERS: PCP Family Medicine; Visit Provider Urology | DX: N39.0 Urinary tract infection, site not specified (principal); N39.46 Mixed incontinence | CPT/HCPCS: 81003; 99213 ==

== ENCOUNTER 2022-09-17 12:19 | Inpatient (IN) | payer BC, MEDICARE, SELFPAY ==
[2022-09-17] VITALS (61 sets, daily range): BP systolic 64–142; BP diastolic 35–86; PULSE 67–107; RESP 13–32; TEMP 37.2; O2SAT 91–99; BMI 31.2
--- NOTE | 2022-09-17 12:28 | ECG_ITS ---
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 Measurements Intervals [place] Rate: 69 P: 0 LA: 0 QRS: -72 QRSD: 154 T: 99 QT: 475 QTc: 512 Interpretive Statements ELECTRONIC VENTRICULAR PACEMAKER Compared to ECG 05/04/2022 20:47:17 No significant changes Electronically Signed On 09-17-2022 13:40:04 CDT by Kel Molina M.D. [id number]
--- NOTE | 2022-09-17 12:28 | XR_ITS ---
WS: [id number] Portable AP upright chest, 09/17/2022 Clinical Data: dyspnea Comparison: Portable chest, 05/04/2022 Findings: No nodules, masses or effusions are seen. The heart is enlarged. The pulmonary vascularity is not increased. No pneumonia or pneumothorax is seen. There is a permanent pacemaker with the wires ending in the heart and the generator overlying the left axilla. The aortic arch and descending thor acic aorta show calcification and tortuosity. There are midline sternotomy sutures. Monitor leads are on the chest wall. XR/XR chest 1V portable [id number] Impression: No change in cardiomegaly and atherosclerosis.
--- NOTE | 2022-09-17 12:38 | W.ED.SOB ---
HPI - SOB/Dyspnea General: Chief Complaint: Shortness of Breath/Dyspnea Stated Complaint: SOB, low O2 Time Seen by Provider: 09/17/22 12:28 Source: patient Mode of arrival: ambulatory History of Present Illness: HPI Narrative: 72-year-old female presents emergency room feeling weak and short of breath. She has mild respiratory distress on arrival improved with oxygen supplementation. She also complaining some vague chest discomfort with any activity she feels markedly increasingly short of breath. She denies any abdominal pain no dysuria urgency or frequency. Symptoms have progressed over the last several days she has also had some blood-tinged discolored mucus. MD elicited complaint: shortness of breath and cough Onset (ago): day(s) Timing: constant Severity: mild Exacerbating factors: nothing Relieving factors: nothing Known history of: COPD Associated symptoms: Reports chest pain, fever(s), hemoptysis and nausea; Deny abdominal pain, chest congestion, cough, diaphoresis, dizziness, extremity pain, lightheadedness, myalgias, orthopnea, palpitations, paresthesias, polydipsia, polyuria, rash, sense of impending doom, syncope or vomiting Treatment prior to arrival: none Review of Systems Const: Reports: fever(s), chills, fatigue and malaise; Denies: diaphoresis Card: Reports: chest pain, edema and swelling of feet/ankles; Denies: palpitations, lightheadedness, syncope or orthopnea Resp: Reports: dyspnea, productive cough, wheezing and hemoptysis; Denies: chest congestion GI: Reports: nausea; Denies: abdominal pain or vomiting : Denies: flank pain, difficulty voiding, dysuria, urinary frequency or urinary urgency Musc: Denies: extremity pain Skin/Breast: Denies: rash or pruritus Neuro: Reports: other (Tremor); Denies: dizziness Endo: Denies: polyuria or polydipsia PFSH ED PFSH: Medical History Acute cystitis without hematuria Anticoagulant long-term use Atrial fibrillation Balance disorder Cardiac 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 therapy 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 (TRAVELING REPAIR ACCOUNTANT-D) in place Cardiomyopathy CHF (congestive heart failure) Chronic renal insufficiency, stage II (mild) Chronic tophaceous gout of both hands CKD (chronic kidney disease) stage 3, GFR 30-59 ml/min Cognitive impairment Elevated troponin I level GERD (gastroesophageal reflux disease) Gout HTN (hypertension) Hyperlipidemia Intracranial atherosclerosis Iron deficiency anemia Left bundle branch block MRSA carrier NSTEMI (non-ST elevated myocardial infarction) BASIA (obstructive sleep apnea) PAD (peripheral artery disease) Recurrent UTI Renal artery stenosis Right internal carotid artery aneurysm Sleep apnea Vertebral artery stenosis Vertebrobasilar insufficiency Surgical History H/O cardiac radiofrequency ablation S/P angioplasty with stent S/P appendectomy S/P CABG (coronary artery bypass graft) S/P section S/P hysterectomy S/P ICD (internal cardiac 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) procedure Status post aorto-coronary artery bypass graft Status post tubal ligation Family History Father , AT AGE 65 Hyperlipidemia CAD (coronary artery disease) Hypertension Rheumatoid arthritis Mother , AT AGE 65 Hyperlipidemia CAD (coronary artery disease) Hypertension Diabetes Sister Hyperlipidemia CAD (coronary artery disease) Hypertension Diabetes Other Cancer Social History Smoking and tobacco status: never smoked Second hand smoke exposure: No Alcohol intake: never Desire information about alcohol rehabilitation?: No Counseling given: No Substance/Drug Use: never Desire information about substance/drug rehabilitation?: No Counseling given: No Marital status: Current occupational status: retired Female Reproductive History: Spontaneous abortions: No Physical Exam Const: GENERAL APPEARANCE: cooperative and comfortable ORIENTATION/CONSCIOUSNESS: Yes awake, Yes oriented to person, Yes oriented to place and Yes oriented to time HENMT: COMMON NORMALS: normocephalic, atraumatic and hearing grossly normal bilaterally HEAD & SCALP: normocephalic and atraumatic Resp: AUSCULTATION: crackles and wheezes Cardio: COMMON NORMALS: regular rate, regular rhythm and No murmurs present (Cardio) RATE: regular rate RHYTHM: regular rhythm GI: COMMON NORMALS: Soft to palpation and No hepatosplenomegaly present AUSCULTATION: Yes normoactive bowel sounds PALPATION: Yes Soft to palpation, No Tenderness to palpation present (GI), No Guarding due to palpation present (GI) and Yes No hepatosplenomegaly present Extremity: COMMON NORMALS: normal to inspection, capillary refill normal, no clubbing, cyanosis or edema, no calf tenderness and no pedal edema Neuro: SENSORIUM/ORIENTATION: Yes oriented to person, Yes oriented to place and Yes oriented to time Skin: COMMON NORMALS: no rashes or lesions noted GENERAL SKIN EXAM: no rashes or lesions noted Procedures Central Line Placement Right IJ: Time Out Performed: Yes Patient Placed on Monitor/Pulse Ox: Yes MD Prep: mask, gown and gloves Central Line Prep: Chlorhexidine scrub Local Anesthetic: lidocaine 1% Amount of anesthesia used (mL): 3 Ultrasound Used for Placement: Yes Central Line Lumen Inserted: triple Post Procedure: sutured in place, good blood return, all ports aspirated, flushed, capped and sterile dressing applied Post Procedure X-Ray: tip of catheter in good position and no pneumothorax seen Patient Tolerated Procedure: well Complications: none Course Vital Signs: Vital signs: Vital Signs Temperature 98.9 F 09/17/22 18:15 Pulse Rate 70 09/18/22 06:00 Respiratory Rate 15 09/18/22 02:30 Blood Pressure 129/63 09/17/22 18:15 Pulse Oximetry 95 09/18/22 02:30 Oxygen Delivery Me thod Nasal Cannula 09/17/22 17:45 Oxygen Flow Rate 2 09/17/22 16:36 MDM - SOB/Dyspnea Medical Decision Making Pneumonia with pulmonary embolism. She is in septic shock. Fluid bolus did not significantly improve her pressure she is currently on Levophed she has been initially started on Levaquin had an allergic reaction to that with systemic rash and flush feeling. She had noticeable erythema this was treated with stopping Levaquin giving Benadryl and steroids she had resolution of her symptoms she was started on Fortaz. She also started on heparin because of PEs. Discussed with Dr. Waddell. He request we place a central line. It was placed without difficulty patient tolerated well chest x-ray confirmed placement patient will be admitted to the ICU orders written. Medical Records I reviewed the patient's medical records. Lab Data I reviewed the patient's lab results. 09/18/22 03:30 09/18/22 03:30 Labs/Radiology: Radiology Impressions Chest CTA 09/17/22 13:05 IMPRESSION: 1. A few small filling defects in the segmental and subsegmental pulmonary arteries RIGHT upper lobe suspicious for pulmonary embolus. 2. Diffuse hazy groundglass infiltrates throughout the RIGHT lung worse about the hilum and RIGHT upper lobe. Recommend correlation for pneumonia including viral pneumonia. 3. LEFT lung is well aerated. 4. Cardiomegaly. 5. Prior sternotomy. 6. Small moderate esophageal hiatal hernia. Notified Vincent Tate DO at 09/17/2022 3:00 PM. Chest X-Ray 09/17/22 16:28 IMPRESSION: 1. Right jugular approach central venous catheter with tip in the right atrium. 2. Cardiomegaly, with pulmonary vascular congestion. 3. Increasing patchy opacity in the right mid and lower lung which may reflect edema, atelectasis or pneumonitis. Laboratory Results WBC 28.8 10^3/uL (4.0-10.0) H 09/17/22 12:50 RBC 3.82 10^6/uL (4.1-5.3) L 09/17/22 12:50 Hgb 11.4 g/dL (11.5-15.3) L 09/17/22 12:50 Hct 36.2 % (37.0-47.0) L 09/17/22 12:50 MCV 94.8 fl (81-99) 09/17/22 12:50 MCH 29.8 pg (28.0-34.0) 09/17/22 12:50 MCHC 31.5 g/dL (30.0-36.0) 09/17/22 12:50 RDW 17.2 % (12.1-15.1) H 09/17/22 12:50 Plt Count 231 10^3/cmm (130-400) 09/17/22 12:50 MPV 10.2 fL (7.4-10.4) 09/17/22 12:50 Neut % (Auto) 94.0 % 09/17/22 12:50 Lymph % (Auto) 1.5 % 09/17/22 12:50 [place] % (Auto) 3.6 % 09/17/22 12:50 Eos % (Auto) 0.0 % 09/17/22 12:50 Baso % (Auto) 0.2 % 09/17/22 12:50 Neut # (Auto) 27.02 10^3/uL (1.8-7.7) H 09/17/22 12:50 Lymph # (Auto) 0.4 10^3/uL (0.8-4.8) L 09/17/22 12:50 [place] # (Auto) 1.1 10^3/uL (0.2-0.9) H 09/17/22 12:50 Eos # (Auto) 0.0 10^3/uL (0.0-0.8) 09/17/22 12:50 Baso # (Auto) 0.1 10^3/uL (0.0-0.1) 09/17/22 12:50 Nucleated RBC % (auto) 0 % 09/17/22 12:50 Nucleated RBCs # 0.0 /100WBC 09/17/22 12:50 PT 14.60 SECONDS (12.1-14.9) 09/17/22 12:50 INR 1.10 (0.8-1.2) 09/17/22 12:50 APTT 27.0 SECONDS (23.9-36.7) 09/17/22 12:50 Specimen Type Arterial 09/17/22 12:43 Sample Site Radial, right 09/17/22 12:43 ABG pH 7.39 (7.35-7.45) 09/17/22 12:43 ABG pCO2 39.2 mmHg (35-45) 09/17/22 12:43 ABG pO2 62.0 mmHg (80.0-100.0) L 09/17/22 12:43 ABG HCO3 23.5 mmol/L (22-26) 09/17/22 12:43 ABG O2 Saturation 91.1 09/17/22 12:43 ABG Base Excess -1.4 mmol/L (-2.0-2.0) 09/17/22 12:43 Nitesh Test Pos 09/17/22 12:43 A-a O2 Gradient 5.1 mmHg (5-10) 09/17/22 12:43 Hematocrit 34.1 % (37-47) L 09/17/22 12:43 Hgb O2 Saturation 90.4 % (95-100) L 09/17/22 12:43 Carboxyhemoglobin 0.4 %THgb (0.4-20.1) 09/17/22 12:43 Methemoglobin 0.3 % (0.4-1.5) L 09/17/22 12:43 Total Hemoglobin 11.1 g/dL (12-16) L 09/17/22 12:43 Sodium 139.0 mmol/L (131-143) 09/17/22 12:43 Potassium 3.8 mmol/L (3.5-5.0) 09/17/22 12:43 Glucose 103.0 mg/dL (70-115) 09/17/22 12:43 Ionized Calcium 1.2 mmol/L (1.1-1.4) 09/17/22 12:43 O2 Delivery Device Room air 09/17/22 12:43 FiO2 21.0 % 09/17/22 12:43 Sales Representative Meats ID Cak 09/17/22 12:43 Sodium 140 mmol/L (136-145) 09/17/22 12:50 Potassium 4.1 mmol/L (3.5-5.1) 09/17/22 12:50 Chloride 102 mmol/L (98-107) 09/17/22 12:50 Carbon Dioxide 22 mmol/L (22-29) 09/17/22 12:50 Anion Gap 20.1 (5-19) H 09/17/22 12:50 BUN 50 mg/dL (8-23) H 09/17/22 12:50 Creatinine 1.4 mg/dL (0.5-0.9) H 09/17/22 12:50 GFR Calculation 37.2 mL/min (90-130) L 09/17/22 12:50 Glucose 93 mg/dL (65-115) 09/17/22 12:50 Calculated Osmolality 303 mOsm/kg (285-295) H 09/17/22 12:50 Lactic Acid 2.7 mmol/L (0.5-2.2) H 09/17/22 12:50 Lactic Acid (Sepsis) 3.1 mmol/L (0.5-2.2) H 09/17/22 15:57 Calcium 8.5 mg/dL (8.5-10.5) 09/17/22 12:50 Total Bilirubin 0.6 mg/dL (0.15-1.2) 09/17/22 12:50 AST 29 U/L (0-32) 09/17/22 12:50 ALT 12 U/L (0-33) 09/17/22 12:50 Alkaline Phosphatase 127 U/L (35-105) H 09/17/22 12:50 Creatine Kinase 40 U/L (26-192) 09/17/22 12:50 Troponin T Baseline 28 ng/L (0-10) H 09/17/22 12:50 Troponin T 120 Minute 22.33 ng/L (0-10) H 09/17/22 14:46 Delta Troponin T -5.67 ABS# (0-10) L 09/17/22 14:46 NT-Pro-B Natriuret Pep 5158 pg/mL (0-125) H 09/17/22 12:50 Total Protein 6.7 g/dL (6.6-8.7) 09/17/22 12:50 Albumin 4.2 g/dL (3.5-5.2) 09/17/22 12:50 Globulin 2.5 g/dL (1.3-4.6) 09/17/22 12:50 Procalcitonin 9.42 ng/mL (0-0.5) H 09/17/22 12:50 TSH 1.72 uIU/mL (0.27-4.20) 09/17/22 12:50 Urine Color Yellow (Yellow) 09/17/22 15:00 Urine Appearance Clear (CLEAR) 09/17/22 15:00 Urine pH 5 (5-7) 09/17/22 15:00 Ur Specific [place] 1.010 (1.005-1.030) 09/17/22 15:00 Urine Protein Neg (Negative) 09/17/22 15:00 Urine Glucose (UA) Norm (Normal) 09/17/22 15:00 Urine Ketones Negative (Negative) 09/17/22 15:00 Urine Blood Neg (Negative) 09/17/22 15:00 Urine Nitrate Negative (Negative) 09/17/22 15:00 Urine Bilirubin Neg (Negative) 09/17/22 15:00 Urine Urobilinogen Norm mg/dL (Negative) 09/17/22 15:00 Ur Leukocyte Esterase Negative (Negative) 09/17/22 15:00 Coronavirus 229E (PCR) Not detected (NOT DETECT) 09/17/22 13:11 SARS-CoV-2 (PCR) Not detected (NOT DETECT) 09/17/22 13:11 Critical Care Time Critical Care Time: Critical Care Time: Yes Total Critical Care Time: 45 Attestation: The high probability of a clinically significant, sudden or life threatening deterioration of the patient's cardiovascular respiratory system(s) required my full and direct attention, intervention and personal management. The critical care time is as shown. This time is in addition to time spent performing any reported procedures but includes the following: [x] Data and vital sign review and interpretation [x] Patient assessment, examination and intervention [x] Documentation [x] Medication orders and management Discharge Plan Discharge Patient Disposition: Admitted As Inpatient Admit Provider: Nevaeh Bates Clinical Impression: Pneumonia, Septic shock, Pulmonary embolism Condition: Stable Coding Level of Care Code ED Background Investigator for Dario Guzman
[2022-09-17 12:55] LABS: ABG PCO2 39.2 mmHg (35-45); ABG PH Result 7.39 (7.35-7.45); Alveolar-Arterial Oxygen Gradi 5.1 mmHg (5-10); Arterial Blood Gas Hematocrit 34.1 % (37-47); Base Excess ABG -1.4 mmol/L (-2.0-2.0); Blood Gas Allen Test Pos; Blood Gas Operator Identificat CAK; Blood Gas Sample Site Radial, right; Blood Gas Sample Type Arterial; Carboxyhemoglobin 0.4 %THgb (0.4-20.1); HCO3 ABG 23.5 mmol/L (22-26); HGB O2 Sat 90.4 % (95-100); Ionized Calcium Level - ABG 1.2 mmol/L (1.1-1.4); Methemoglobin 0.3 % (0.4-1.5); Oxygen Device ROOM AIR; Oxygen Saturation ABG 91.1; Potassium Level - ABG 3.8 mmol/L (3.5-5.0); Total Hemoglobin 11.1 g/dL (12-16)
[2022-09-17] MEDS: ipratropium-albuterol 3 mL Neb INHALATION (12:59)
--- NOTE | 2022-09-17 13:05 | CT_ITS ---
WS: [id number] CTA OF THE CHEST WITH PULMONARY EMBOLISM PROTOCOL TECHNIQUE: High-resolution contrast enhanced CTA of the chest with coronal and sagittal reformatted i almas with pulmonary embolism protocol. MIP images are also reviewed. CLINICAL INFORMATION: chest pain/hemoptyis/hypotension COMPARISON: CTA February 07, 2022 DLP: 425.[address] scans at [facility] use at least one of these dose optimization techniques: automated e xposure control; mA and/or kV adjustment per patient size (includes targeted exams where dose is matc hed to clinical indication); or iterative reconstruction. FINDINGS: Cardiomegaly. Cardiac pacer. Sternotomy. Proximal main pulmonary arteries are normal. A few small oscar ling defects in the segmental and subsegmental pulmonary arteries RIGHT upper lobe suspicious for pul monary embolus. Hazy groundglass infiltrates throughout the RIGHT lung worse RIGHT upper lobe. Recommend correlation for pneumonia. LEFT lung is better aerated. Slight bibasilar atelectasis. Aortic calcification. Normal caliber thoracic aorta. Coronary calcification. CABG. Adrenal glands are normal. Atrophic RIGHT kidney. Partially visualized RIGHT renal stent. Small moderate esophageal hia frantz hernia. CT/CT angio chest PE protcl [id number] IMPRESSION: 1. A few small filling defects in the segmental and subsegmental pulmonary art eries RIGHT upper lobe suspicious for pulmonary embolus. 2. Diffuse hazy groundglass infiltrates throughout the RIGHT lung worse about the hilum and RIGHT upper lobe. Recommend correlation for pneumonia including v iral pneumonia. 3. LEFT lung is well aerated. 4. Cardiomegaly. 5. Prior sternotomy. 6. Small moderate esophageal hiatal hernia. Notified Vincent Tate DO at 09/17/2022 3:00 PM.
[2022-09-17 13:06] LABS: Basophils # 0.1 10^3/uL (0.0-0.1); Basophils % 0.2 %; Hematocrit 36.2 % (37.0-47.0); Hemoglobin 11.4 g/dL (11.5-15.3); Lymphocytes # 0.4 10^3/uL (0.8-4.8); Lymphocytes % 1.5 %; Mean Corpuscular HGB Conc 31.5 g/dL (30.0-36.0); Mean Corpuscular Hemoglobin 29.8 pg (28.0-34.0); Mean Corpuscular Volume 94.8 fl (81-99); Mean Platelet Volume 10.2 fL (7.4-10.4); Monocytes # 1.1 10^3/uL (0.2-0.9); Monocytes % 3.6 %; Neutrophils # 27.02 10^3/uL (1.8-7.7); Nucleated Red Blood Cells % 0 %; Platelet Count 231 10^3/cmm (130-400); Red Blood Count 3.82 10^6/uL (4.1-5.3); Red Cell Distribution Width 17.2 % (12.1-15.1); White Blood Count 28.8 10^3/uL (4.0-10.0)
[2022-09-17 13:25] LABS: Lactic Sepsis W/Reflex 2.7 mmol/L (0.5-2.2)
[2022-09-17] MEDS: sodium chloride 0.9% 2,558.25 ML 2558.25 ML IV (13:27)
[2022-09-17 13:28] LABS: Troponin(5th) Baseline 28 ng/L (0-10)
[2022-09-17 13:36] LABS: Alanine Aminotransferase 12 U/L (0-33); Albumin Level 4.2 g/dL (3.5-5.2); Alkaline Phosphatase 127 U/L (35-105); Anion Gap 20.1 (5-19); Aspartate Amino Transferase 29 U/L (0-32); Blood Urea Nitrogen 50 mg/dL (8-23); Calcium 8.5 mg/dL (8.5-10.5); Carbon Dioxide 22 mmol/L (22-29); Chloride 102 mmol/L (98-107); Globulin 2.5 g/dL (1.3-4.6); Glomerular Filtration Rate 37.2 mL/min (90-130); Glucose 93 mg/dL (65-115); NT Pro B Type Natriuretic Pept 5158 pg/mL (0-125); Osmolality Calculated 303 mOsm/kg (285-295); Potassium 4.1 mmol/L (3.5-5.1); Sodium 140 mmol/L (136-145); Total Bilirubin 0.6 mg/dL (0.15-1.2); Total Protein 6.7 g/dL (6.6-8.7)
[2022-09-17] MEDS: levofloxacin-dextrose 5 % 750 MG/150 ML PREMIX 100 MG IV (13:49)
[2022-09-17 14:06] LABS: Creatine Phosphokinase 40 U/L (26-192)
[2022-09-17] MEDS: iohexol 350 mg/mL 500 mL Btl (per mL) IV (14:18)
--- NOTE | 2022-09-17 14:20 | PC.PHAR ---
pt states she takes care of her own medications-pt states she is still taking atorvastatin 40mg qam written 03/27/22 ext med history doesnt show when last filled-pt states she takes lasix 40mg daily ext med history shows last filled 05/21/22 90d/s 40mg bid-
--- NOTE | 2022-09-17 14:28 | ECG_ITS ---
[facility] Test Date: 2022-09-17 Pat Name: Essie Alejandre Department: Room: Gender: Female Machine Sander: : 1950 Requested By: Vincent Peña Order Number: [id number] Jj MD: Kel Molina M.D. Measurements Intervals [place] Rate: 71 P: 0 IN: 0 QRS: -68 QRSD: 161 T: 99 QT: 482 QTc: 525 Interpretive Statements ELECTRONIC VENTRICULAR PACEMAKER Compared to ECG 09/17/2022 12:36:37 No significant changes Electronically Signed On 09-17-2022 21:39:11 CDT by Kel Molina M.D. [id number]
[2022-09-17] MEDS: dexamethasone 10 mg/mL INJ IVP (14:55)
[2022-09-17] MEDS: diphenhydrAMINE 50 mg/mL SDV 1mL 25 MG IVP (14:55)
[2022-09-17 14:56] LABS: Reflex Lactate Order REFLEX LACTIC ORDERD
[2022-09-17 15:04] LABS: Add Urine Microscopic? NO; Charge for UA Resulting for Rev
[2022-09-17 15:07] LABS: Adenovirus Not Detected (NOT DETECT); Chlamydia Pneumoniae Not Detected (NOT DETECT); Coronavirus 229E,HKU1,NL63,OC4 Not Detected (NOT DETECT); Human Metapneumovirus Not Detected (NOT DETECT); Human Rhinovirus/Enterovirus Not Detected (NOT DETECT); Influenza A Not Detected (NOT DETECT); Influenza A H1 Not Detected (NOT DETECT); Influenza A H1-2009 Not Detected (NOT DETECT); Influenza A H3 Not Detected (NOT DETECT); Influenza B Not Detected (NOT DETECT); Mycoplasma Pneumoniae Not Detected (NOT DETECT); Parainfluenza Virus Type 1 Not Detected (NOT DETECT); Parainfluenza Virus Type 2 Not Detected (NOT DETECT); Parainfluenza Virus Type 3 Not Detected (NOT DETECT); Parainfluenza Virus Type 4 Not Detected (NOT DETECT); Respiratory Syncytial Virus A Not Detected (NOT DETECT); Respiratory Syncytial Virus B Not Detected (NOT DETECT); SARS-COV-2 Not Detected (NOT DETECT)
[2022-09-17 15:14] LABS: Troponin 5 2HR 22.33 ng/L (0-10); Troponin 5 2HR Delta -5.67 ABS# (0-10)
[2022-09-17 15:22] LABS: Bilirubin Urine Neg (Negative); Blood Urine Neg (Negative); Glucose Urine UA Norm (Normal); Ketones Urine Negative (Negative); Leukocyte Esterase Urine Negative (Negative); Nitrate Urine Negative (Negative); Protein Urine Neg (Negative); Urine Appearance Clear (CLEAR); Urine Color Yellow (Yellow); Urobilinogen Urine Norm (Negative); pH Urine 5 (5-7)
[2022-09-17] MEDS: heparin 5,000 unit/mL INJ 1 mL IV (15:50)
[2022-09-17] MEDS: cefTAZidime 2,000 MG in sodium chloride 0.9% (plus) 50 ML 150 MG IV (16:01)
--- NOTE | 2022-09-17 16:13 | PM.HP ---
Providers/Chief Complaint Admitting Physician: Nevaeh Bates MD Primary Care Provider: Derek Dowd DO Chief Complaint: SOB, low O2 History of Present Illness Essie Alejandre is a 71 year old female She has extensive history of coronary disease with CABG history of A. fib, renal artery stenosis, chronic kidney disease ischemic cardiomyopathy mixed heart failure, left bundle branch block, sleep apnea, went to the EP and had a 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 placed when she failed ablation for her A. fib.? She is not on any anticoagulating agent because of aneurysm vessels she does have chronic dizziness presented to hospital with chief complaint of?shortness of breath, lethargy and loose stools. Patient is stating that she could not sleep well last night because she was having diarrhea, she woke up twice, as per the who is at the bedside patient has been fatigued and lethargic for last 3 to 4 weeks, she has been seen by PCP multiple times, no recent use of antibiotics, patient is stating that her pacemaker battery is need to be changed in near future, she has not noticed any fever, vomiting but endorsing nausea. She only experienced 2 episodes of diarrhea at home. Around 6:30 AM she started noticing right-sided chest pain which was getting worse and taking deep breaths. Patient is stating that it is not similar to the last time when she was in the hospital for venous graft stent last year. In the ER she was diagnosed with leukocytosis, acute on chronic kidney disease, small PE, she was hypotensive however awake and alert but lethargic she was put on Levophed after getting a central line in the ER Review of Systems Const: Reports: chills Eyes: Denies: change in vision ENMT: Denies: throat pain Card: Reports: chest pain and dyspnea on exertion Resp: Reports: dyspnea GI: Reports: nausea and diarrhea : Denies: flank pain Musc: Denies: neck pain Skin/Breast: Denies: rash Medications/Allergies Home Medications Medication Instructions Recorded Confirmed Last Taken Type multivitamin 1 tab PO QAM 06/08/21 09/17/22 09/17/22 History sour alonso extract 1,000 mg 1,000 mg PO BEDTIME 06/23/21 09/17/22 09/16/22 History capsule (Tart Alonso Extract) alprazolam 0.5 mg tablet 0.5 mg PO DAILY PRN Anxiety 02/07/22 09/17/22 Unknown History isosorbide mononitrate 60 mg 60 mg PO QAM 03/24/22 09/17/22 09/17/22 History tablet,extended release 24 hr metoprolol tartrate 25 mg tablet 25 mg PO BID 03/24/22 09/17/22 09/17/22 History omega-3 fatty acids 1,000 mg 1,000 mg PO BID 03/24/22 09/17/22 09/17/22 History capsule potassium chloride 20 mEq 20 meq PO QAM 03/24/22 09/17/22 09/17/22 History tablet,extended release allopurinol 100 mg tablet 400 mg PO QAM #30 tabs 03/27/22 09/17/22 09/17/22 Rx aspirin 81 mg tablet,delayed 81 mg PO BEDTIME #120 tabs 03/27/22 09/17/22 09/16/22 Rx release (Adult Aspirin Regimen) atorvastatin 40 mg tablet 40 mg PO QAM #120 tabs 03/27/22 09/17/22 03/29/22 Rx furosemide 40 mg tablet 40 mg PO QAM #30 tabs 03/27/22 09/17/22 09/16/22 Rx tizanidine 4 mg capsule 4 mg PO Q6H PRN muscle spasticity 03/29/22 09/17/22 Unknown Rx #20 caps clopidogrel 75 mg tablet 75 mg PO BEDTIME #90 tabs 05/28/22 09/17/22 09/16/22 Rx pantoprazole 40 mg tablet,delayed 40 mg PO BID #60 tabs 07/14/22 09/17/22 09/17/22 Rx release pregabalin 75 mg capsule (Lyrica) 75 mg PO BID #60 caps 07/15/22 09/17/22 09/17/22 Rx albuterol sulfate 90 mcg/actuation 2 puff inhalation QID PRN 07/28/22 09/17/22 09/17/22 Rx aerosol inhaler Shortness Of Breath #6.7 grams nitroglycerin 0.4 mg sublingual 0.4 mg sublingual Q5M PRN Chest 08/24/22 09/17/22 Unknown Rx tablet (Nitrostat) Pain #14 tabs sertraline 100 mg tablet 100 mg PO QAM #90 tabs 08/24/22 09/17/22 09/17/22 Rx tramadol 100 mg tablet 50 mg PO DAILY PRN Pain #30 tabs 08/24/22 09/17/22 Unknown Rx cefuroxime axetil 500 mg tablet 500 mg PO BID PRN RUTIs #30 tabs 09/14/22 09/17/22 Unknown Rx acetaminophen 650 mg 1,300 mg PO BID 09/17/22 09/17/22 09/17/22 History tablet,extended release (Tylenol Arthritis Pain) diclofenac sodium 75 mg 75 mg PO Q12H PRN Pain 09/17/22 09/17/22 Unknown History tablet,delayed release lisinopril 20 mg tablet 20 mg PO BEDTIME 09/17/22 09/17/22 09/16/22 History magnesium chloride 71.5 mg 71.5 mg PO BID 09/17/22 09/17/22 09/17/22 History (magnesium chloride) tablet,delayed release (Slow-Mag) Allergies Allergy/AdvReac Type Severity Reaction Status Date / Time Sulfa (Sulfonamide Allergy hives Verified 09/17/22 13:54 Antibiotics) adhesive tape AdvReac Mild Unknown Verified 09/17/22 13:54 PFSH Acute PFSH: Medical History Acute cystitis without hematuria Anticoagulant long-term use Atrial fibrillation Balance disorder Cardiac 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 therapy 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 ([employer]) in place Cardiomyopathy CHF (congestive heart failure) Chronic renal insufficiency, stage II (mild) Chronic tophaceous gout of both hands CKD (chronic kidney disease) stage 3, GFR 30-59 ml/min Cognitive impairment Elevated troponin I level GERD (gastroesophageal reflux disease) Gout HTN (hypertension) Hyperlipidemia Intracranial atherosclerosis Iron deficiency anemia Left bundle branch block MRSA carrier NSTEMI (non-ST elevated myocardial infarction) BASIA (obstructive sleep apnea) PAD (peripheral artery disease) Recurrent UTI Renal artery stenosis Right internal carotid artery aneurysm Sleep apnea Vertebral artery stenosis Vertebrobasilar insufficiency Surgical History H/O cardiac radiofrequency ablation S/P angioplasty with stent S/P appendectomy S/P CABG (coronary artery bypass graft) S/P section S/P hysterectomy S/P ICD (internal cardiac 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) procedure Status post aorto-coronary artery bypass graft Status post tubal ligation Family History Father , AT AGE 65 Hyperlipidemia CAD (coronary artery disease) Hypertension Rheumatoid arthritis Mother , AT AGE 65 Hyperlipidemia CAD (coronary artery disease) Hypertension Diabetes Sister Hyperlipidemia CAD (coronary artery disease) Hypertension Diabetes Other Cancer Social History Smoking and tobacco status: never smoked Second hand smoke exposure: No Alcohol intake: never Desire information about alcohol rehabilitation?: No Counseling given: No Substance/Drug Use: never Desire information about substance/drug rehabilitation?: No Counseling given: No Marital status: Current occupational status: retired Female Reproductive History: Spontaneous abortions: No Vitals/I&O/Wt Last Vital Signs Pulse 78 09/17/22 14:55 Resp 23 H 09/17/22 15:20 BP 92/49 09/17/22 14:55 Pulse Ox 93 09/17/22 14:55 O2 Del Method Room Air 09/17/22 14:34 09/17/22 09/17/22 09/17/22 06:59 14:59 22:59 Intake Total 82.62 / 82.62 2571.077 / 2653.697 Balance 82.62 / 82.62 2571.077 / 2653.697 Weight last 48 hrs Weight 85.275 kg Physical Exam Narrative: Patient is 52 lethargic Awake and alert able to answer my question appropriate Nonfocal neuro exam Clinically looks dry Dry mucous membranes At the time of evaluation she is on 3 L nasal cannula GCS 15 is at the bedside Abdomen soft No audible stridor or wheezing Data 09/17/22 12:50 09/17/22 12:50 Micro: Microbiology 09/17/22 12:51 Blood Culture - Preliminary Blood SPECIMEN COLLECTED 09/17/22 12:50 Blood Culture - Preliminary Blood SPECIMEN COLLECTED A&P Assessment and plan (1) Sepsis without septic shock: (2) Right internal carotid artery aneurysm: (3) HTN (hypertension): Qualifiers: Hypertension type: primary hypertension Qualified Code(s): I10 - Essential (primary) hypertension (4) BASIA (obstructive sleep apnea): (5) Cardiomyopathy: Qualifiers: Cardiomyopathy type: ischemic Qualified Code(s): I25.5 - Ischemic cardiomyopathy (6) Renal artery stenosis: (7) PAD (peripheral artery disease): (8) Vertebrobasilar insufficiency: (9) Status post aorto-coronary artery bypass graft: (10) Chronic diarrhea: (11) CKD (chronic kidney disease) stage 3, GFR 30-59 ml/min: Qualifiers: Chronic kidney disease stage 3 subtype: stage 3b (GFR 30-44) Qualified Code(s): N18.32 - Chronic kidney disease, stage 3b (12) Chronic tophaceous gout of both hands: (13) Septic shock: (14) Pneumonia: Plan Septic shock related to pneumonia Currently on Levophed at 6 mics Septic bolus given in the ER White count, tachypnea and tachycardia with high lactic acid endorgan damage acute on chronic kidney disease Antibiotics to be continued I will continue vancomycin and cefepime Diarrhea: Rule out C. difficile she seems to have chronic diarrhea Bilateral PE, no significant elevation of troponin, right-sided pleuritic chest pain, currently on heparin drip Acute hypoxia secondary to PE and pneumonia DuoNeb treatment To decrease work of breathing she can be put on BiPAP overnight History of CABG, stent placed in SVG last year, continue dual antiplatelet therapy patient has not missed of any of her medications Acute on chronic kidney disease stage III: Related to sepsis, antibiotics to be renally dosed History of chronic dizziness related to vertebral basilar insufficiency Pacemaker dependent, will do pacemaker interrogation Goals of care discussed with the patient and her they do not want any chest compressions, defibrillation or intubation in case of any cardiac or respiratory arrest okay with medical therapy and BiPAP, will change CODE STATUS to DNR/DNI Anticipating more than 2 midnights Patient has received septic bolus, currently on normal saline, patient has preserved ejection fraction heart failure currently compensated clinically dry monitor for any signs of fluid overload for any positive fluid balance she should get Lasix once off pressors, she carries history of renal artery stenosis, I do not suspect addisonian disease at this point Attestations Medical Necessity Statement*: More than 2 midnights anticipated for management of septic shock Diagnoses Sepsis without septic shock A41.9 Right internal carotid artery aneurysm I67.1 HTN (hypertension) I10 Hypertension type: primary hypertension BASIA (obstructive sleep apnea) G47.33 Cardiomyopathy I25.5 Cardiomyopathy type: ischemic Renal artery stenosis I70.1 PAD (peripheral artery disease) I73.9 Vertebrobasilar insufficiency G45.0 Status post aorto-coronary artery bypass graft Z95.1 Chronic diarrhea K52.9 CKD (chronic kidney disease) stage 3, GFR 30-59 ml/min N18.32 Chronic kidney disease stage 3 subtype: stage 3b (GFR 30-44) Chronic tophaceous gout of both hands [id number] Septic shock A41.9; R65.21 Pneumonia J18.9
[2022-09-17 16:23] LABS: Lactic Acid level (Lactate) 3.1 mmol/L (0.5-2.2)
--- NOTE | 2022-09-17 16:28 | XRR_ITS ---
PROCEDURE INFORMATION: Exam: XR Chest Exam date and time: 09/17/2022 4:34 PM Age: 72 years old Clinical indication: Device placement; Other: Central line; Prior surgery; Surgery date: 6+ months; Surgery type: Pacer quad bypass stents; Additional info: Postcentral line placement TECHNIQUE: Imaging protocol: Radiologic exam of the chest. Views: 1 view. COMPARISON: CR XR chest 1V portable [id number] 09/17/2022 1:07 PM FINDINGS: Tubes, catheters and devices: A pacemaker device is noted. Leads appear intact. Right jugular approach central venous catheter with tip in the right atrium. Lungs: Pulmonary vasculature is congested. There is increasing patchy opacity in the right mid and lower lung which may reflect edema, atelectasis or pneumonitis. Pleural spaces: No pleural effusion is seen. No pneumothorax identified. Heart/Mediastinum: Cardiomediastinal postsurgical changes are noted. Cardiomegaly. Bones/joints: Unremarkable. XR/XR chest 1V portable [id number] IMPRESSION: 1. Right jugular approach central venous catheter with tip in the right atrium. 2. Cardiomegaly, with pulmonary vascular congestion. 3. Increasing patchy opacity in the right mid and lower lung which may reflect edema, atelectasis or pneumonitis.
[2022-09-17 17:04] LABS: Procalcitonin 9.42 ng/mL (0-0.5)
[2022-09-17] MEDS: sodium chloride 0.9% 1,000 ML 75 ML IV (18:06)
--- NOTE | 2022-09-17 18:13 | ECG_ITS ---
[facility] Test Date: 2022-09-17 Pat Name: Essie Alejandre Department: Room: [facility] Gender: Female Hostel Parent: : 1950 Requested By: Vincent Peña Order Number: [id number] Jj MD: Kel Molina M.D. Measurements Intervals [place] Rate: 69 P: 0 CO: 0 QRS: -67 QRSD: 155 T: 103 QT: 490 QTc: 528 Interpretive Statements ELECTRONIC VENTRICULAR PACEMAKER Compared to ECG 09/17/2022 14:31:25 No significant changes Electronically Signed On 09-17-2022 21:38:25 CDT by Kel Molina M.D. [email or web address]
[2022-09-17] MEDS: cefepime 2,000 MG in sodium chloride 0.9% (plus) 50 ML 100 MG IV (18:58)
[2022-09-17] MEDS: heparin drip 25,000 UNIT/500 ML PREMIX 23.88 UNIT IV (19:00)
[2022-09-17 19:11] LABS: Thyroid Stimulating Hormone 1.72 uIU/mL (0.27-4.20)
[2022-09-17 19:13] LABS: Troponin 5 6HR 21.06 ng/L (0-10)
[2022-09-17 19:14] LABS: Troponin 5 6HR Delta -6.94 ng/L (0-12)
[2022-09-17] MEDS: clopidogrel 75 mg Tablet PO (20:13)
[2022-09-17] MEDS: aspirin 81 mg EC Tablet PO (20:13)
[2022-09-17] MEDS: vancomycin 1,250 MG/250 ML PIGGYBACK 250 MG IV (20:13)
[2022-09-17 21:01] LABS: Partial Thromboplastin Time 108.9 SECONDS (23.9-36.7)
[2022-09-18 02:30] VITALS: PULSE 71; RESP 15; O2SAT 95
[2022-09-18 04:31] LABS: Basophils % 0.1 %; Hemoglobin 9.3 g/dL (11.5-15.3); Lymphocytes # 0.7 10^3/uL (0.8-4.8); Lymphocytes % 2.8 %; Mean Corpuscular Hemoglobin 29.2 pg (28.0-34.0); Mean Corpuscular Volume 97.5 fl (81-99); Mean Platelet Volume 10.5 fL (7.4-10.4); Monocytes # 0.3 10^3/uL (0.2-0.9); Monocytes % 1.3 %; Neutrophils # 22.37 10^3/uL (1.8-7.7); Neutrophils % 95.1 %; Nucleated Red Blood Cells % 0 %; Platelet Count 182 10^3/cmm (130-400); Red Blood Count 3.18 10^6/uL (4.1-5.3); Red Cell Distribution Width 17.3 % (12.1-15.1); White Blood Count 23.5 10^3/uL (4.0-10.0)
[2022-09-18 04:51] LABS: Blood Urea Nitrogen 42 mg/dL (8-23); C Reactive Protein 171.3 mg/L (0.0-4.9); Carbon Dioxide 20 mmol/L (22-29); Chloride 109 mmol/L (98-107); Glomerular Filtration Rate 44.4 mL/min (90-130); Glucose 167 mg/dL (65-115); Lactic Sepsis W/Reflex 1.5 mmol/L (0.5-2.2); Magnesium 1.6 mg/dL (1.7-2.3); Osmolality Calculated 306 mOsm/kg (285-295); Sodium 141 mmol/L (136-145)
[2022-09-18 05:05] LABS: Partial Thromboplastin Time 186.6 SECONDS (23.9-36.7)
--- NOTE | 2022-09-18 05:21 | PC.NURSE ---
Dr. Forman notified of elevated PTT result. Orders to stop heparin drip and recheck PTT in 1 hour.
[2022-09-18 06:00] VITALS: PULSE 70
[2022-09-18] MEDS: cefepime 2,000 MG in sodium chloride 0.9% (plus) 50 ML 100 MG IV ×2 (06:01→17:46)
[2022-09-18] MEDS: allopurinol 100 mg Tablet 400 MG PO (06:01)
[2022-09-18] MEDS: atorvastatin 40 mg Tablet PO (06:01)
[2022-09-18 06:44] LABS: Partial Thromboplastin Time 97.9 SECONDS (23.9-36.7)
[2022-09-18] MEDS: sodium chloride 0.9% 1,000 ML 75 ML IV (07:04)
[2022-09-18] MEDS: acetaminophen 325 mg Tablet 650 MG PO ×2 (07:12→20:58)
--- NOTE | 2022-09-18 08:28 | USCV_ITS ---
Essie Alejandre Age: 72 Gender: F : 1950 Exam Date: 09/18/2022 11:41 Ordering Phys: Ish Loya MD Technologist: IMGUEL Exam Location: [facility] [place] Indication: sob BP: / HR: 71 Rhythm: Sinus Technical Quality: Adequate MEASUREMENTS (Male / Female) Normal Values 2D ECHO LV Diastolic Diameter PLAX 6.7 cm 4.2 - 5.9 / 3.9 - 5.3 cm LV Systolic Diameter PLAX 5.2 cm IVS Diastolic Thickness 0.8 cm 0.6 - 1.0 / 0.6 - 0.9 cm IVS Systolic Thickness 1.0 cm LVPW Diastolic Thickness 0.6 cm 0.6 - 1.0 / 0.6 - 0.9 cm LVPW Systolic Thickness 1.1 cm LV Ejection Fraction 2D Teich 43.3 % LV Ejection Fraction MOD 2C 41.1 % LV Ejection Fraction 2C AL 41.1 % FINDINGS Left Ventricle Diffuse hypokinesia left ventricular ejection fraction of 41%. Right Ventricle Catheter/pacemaker wire in the right ventricular cavity. Right Atrium Catheter/pacemaker wire in the right atrial appendage. Mildly increased right atrial size. Left Atrium Moderately increased left atrial size. Mitral Valve Thickened mitral valve. Trace to mild mitral valve regurgitation. Aortic Valve Thickened aortic valve. Tricuspid Valve No gross abnormalities noted Pulmonic Valve Mild pulmonary valve regurgitation. Pericardium No pericardial effusion. Aorta Normal aortic annulus size. IVC Mildly dilated IVC. CONCLUSIONS Diffuse hypokinesia left ventricular ejection fraction of 41%. Mildly dilated LV cavityModerately increased left atrial size. Mildly increased right atrial size. Thickened mitral valve. Trace to mild mitral valve regurgitation. Thickened aortic valve. Mild pulmonary valve regurgitation. Mildly dilated IVC. There is no pericardial effusion. There are no intracardiac masses. Compared to the study from 02/08/2022, there is a drop in the LV systolic function. In 2019, the LV ejection fraction was around 25%. Dr Ghulam Allen MD [facility] (Electronically Signed) Final Date: 18 Sep 2022 16:24 S
[2022-09-18] MEDS: pantoprazole 40 mg SDV IVP ×2 (08:56→20:47)
[2022-09-18] MEDS: sucralfate 1 gm Tablet PO ×2 (08:56→20:47)
[2022-09-18] MEDS: magnesium lactate 84 mg Tablet PO ×2 (08:56→17:46)
[2022-09-18] MEDS: apixaban 5 mg Tablet 10 MG PO ×2 (08:56→22:19)
[2022-09-18 09:17] VITALS: PULSE 73; RESP 16; O2SAT 96
[2022-09-18 09:23] LABS: Ferritin 97 ng/mL (15-150); Iron 12 ug/dL (37-145); Percent Saturation 4.2 % (20-50); Total Iron Binding Capacity 285 mcg/dl; Unsaturated Iron Binding 273 ug/dL (112-347)
[2022-09-18 09:37] LABS: Vitamin B12 1347 pg/mL (232-1245)
--- NOTE | 2022-09-18 10:00 | USR_ITS ---
PROCEDURE INFORMATION: Exam: US Duplex Lower Extremity Veins, Bilateral Exam date and time: 09/18/2022 11:17 AM Age: 72 years old Clinical indication: Pulmonary embolism. TECHNIQUE: Imaging protocol: Real-time duplex ultrasound of the bilateral extremities with 2-D david scale, color Doppler flow and spectral waveform analysis including responses to compression and other maneuvers (when performed) with image documentation. Complete exam focused on the lower extremity veins. COMPARISON: No relevant prior studies available. FINDINGS: Right deep veins: The common femoral, femoral, proximal profunda femoral and popliteal veins are patent. Normal Doppler waveforms. Normal compressibility and/or augmentation response. Right superficial veins: Saphenofemoral junction is patent. Left deep veins: The common femoral, femoral, proximal profunda femoral and popliteal veins are patent. Normal Doppler waveforms. Normal compressibility and/or augmentation response. Left superficial veins: Saphenofemoral junction is patent. Soft tissues: No acute soft tissue abnormality. US/[place] [id number] IMPRESSION: No evidence of deep vein thrombosis.
--- NOTE | 2022-09-18 10:16 | PC.NURSE ---
pacer interrogation done as ordered pending results
[2022-09-18 10:47] LABS: INR 1.29 (0.8-1.2)
[2022-09-18 10:49] LABS: Fibrinogen 539 mg/dL (174-498); Partial Thromboplastin Time 53.3 SECONDS (23.9-36.7)
[2022-09-18 11:01] LABS: Folate Level > 20.0 ng/mL (4.8-37.3)
[2022-09-18 12:49] LABS: Hematocrit 31.4 % (37.0-47.0); Hemoglobin 9.8 g/dL (11.5-15.3)
[2022-09-18 14:00] VITALS: PULSE 70
--- NOTE | 2022-09-18 14:26 | PM.PN ---
Subjective Subjective: Patient was seen this morning she denies any chest pain, denies any shortness of breath, no fevers, no chills, she does report shortness of breath when getting up, no lightheadedness, no dizziness, Vitals/I&O/Wt Last Vital Signs Temp 98.9 F 09/17/22 18:15 Pulse 73 09/18/22 09:17 Resp 16 09/18/22 09:17 BP 129/63 09/17/22 18:15 Pulse Ox 96 09/18/22 09:17 O2 Del Method Room Air 09/18/22 09:17 O2 Flow Rate 2 09/17/22 16:36 09/17/22 09/18/22 09/18/22 22:59 06:59 14:59 Intake Total 3100.673 / 3183.293 1148.517 / 4331.810 550 / 550 Output Total 1300 / 1300 600 / 1900 Balance 1800.673 / 1883.293 548.517 / 2431.810 550 / 550 Weight last 48 hrs Weight 85.275 kg Physical Exam Const: COMMON NORMALS: no acute distress and patient oriented x3 HENMT: COMMON NORMALS: normocephalic HEAD & SCALP: normocephalic Neck/C-Spine: COMMON NORMALS: no JVD Resp: COMMON NORMALS: normal respiratory effort, No retractions, No use of accessory muscles and clear to auscultation bilaterally AUSCULTATION: clear to auscultation bilaterally Cardio: COMMON NORMALS: no JVD, regular rate, regular rhythm, S1 normal heart sound present and S2 normal heart sound present RATE: regular rate RHYTHM: regular rhythm HEART SOUNDS: S1 normal heart sound present and S2 normal heart sound present GI: COMMON NORMALS: Normal to inspection, nondistended, normoactive bowel sounds present, Soft to palpation and non-tender PALPATION: Yes Soft to palpation Extremity: COMMON NORMALS: capillary refill normal, no clubbing, cyanosis or edema, no calf tenderness and no pedal edema Neuro: COMMON NORMALS: patient oriented x3 Psych: COMMON NORMALS: mental status grossly normal Urinary Catheter Management: Estes: Cath Placed During This Visit: yes Reason for Continuing Indwelling Catheter: Accurate Measurement of Urinary Output in Critically Ill Patients Urinary Catheter Date of Insertion: 09/17/22 Urinary Catheter Time of Insertion: 17:20 Data 09/18/22 12:12 09/18/22 03:30 Micro: Microbiology 09/17/22 18:45 MRSA Culture - Final Nose 09/17/22 12:51 Blood Culture - Preliminary Blood NEGATIVE TO DATE 09/17/22 12:50 Blood Culture - Preliminary Blood NEGATIVE TO DATE 09/17/22 18:45 Legionella Urinary Antigen - Final Urine Catheterized 09/17/22 18:45 Bacterial Antigens - Final Urine,Voided A&P Assessment and plan (1) Right internal carotid artery aneurysm: (2) HTN (hypertension): Qualifiers: Hypertension type: primary hypertension Qualified Code(s): I10 - Essential (primary) hypertension (3) BASIA (obstructive sleep apnea): (4) Cardiomyopathy: Qualifiers: Cardiomyopathy type: ischemic Qualified Code(s): I25.5 - Ischemic cardiomyopathy (5) Renal artery stenosis: (6) PAD (peripheral artery disease): (7) Vertebrobasilar insufficiency: (8) Status post aorto-coronary artery bypass graft: (9) Chronic diarrhea: (10) CKD (chronic kidney disease) stage 3, GFR 30-59 ml/min: Qualifiers: Chronic kidney disease stage 3 subtype: stage 3b (GFR 30-44) Qualified Code(s): N18.32 - Chronic kidney disease, stage 3b (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: (12) Septic shock: (13) Pneumonia: (14) GI bleed: (15) Acute anemia: (16) 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: (17) Staphylococcus epidermidis bacteremia: (18) NSTEMI (non-ST elevated myocardial infarction): Plan Septic shock related to pneumonia Currently off Levophed Status post sepsis bolus White count, tachypnea and tachycardia with high lactic acid endorgan damage acute on chronic kidney disease Continue vancomycin, and cefepime Staph epidermidis bacteremia with evidence of possible MRSA -Continue vancomycin -CRRT device in place -We will repeat blood cultures tomorrow Pacemaker at the end of battery life -[employer] device placed due to ischemic cardiomyopathy -Pacemaker interrogation shows battery is nearly out of life -Spoke to cardiology, as currently patient is Staph epidermidis bacteremia, pneumonia, high risk of infection if battery were to be replaced -We will continue to monitor if she does develop bradycardia, or AV block then she might require temporary pacing -We will continue cardiac monitoring Acute anemia -Evidence of iron deficiency anemia -Possibly secondary to sepsis, possible slow GI bleed -Protonix, Carafate -Monitor hemoglobin closely Bilateral PE, no significant elevation of troponin, right-sided pleuritic chest pain, currently on heparin drip, transition to oral Eliquis -We will monitor hemoglobin as above -Venous ultrasound -Cardiac echo -If she develops further anemia she might require IVC filter placement Acute hypoxia secondary to PE and pneumonia, resolving DuoNeb treatment To decrease work of breathing she can be put on BiPAP overnight NSTEMI -Likely type II NSTEMI related to supply/demand ischemia and related to sepsis, pneumonia, pulmonary emboli -However cannot rule out cardiac etiology -Monitor Lactic acidosis, resolved Hypomagnesemia, will replace History of CABG, stent placed in SVG last year, continue dual antiplatelet therapy patient has not missed of any of her medications -Continue Plavix -On Eliquis -Due to anemia hold aspirin Acute on chronic kidney disease stage III: Related to sepsis, antibiotics to be renally dosed History of chronic dizziness related to vertebral basilar insufficiency History of atrial fibrillation -Seen on pacemaker interrogation -Currently rate controlled -Beta-srikanth on hold due to hypotension, septic shock -Monitor -Anticoagulation above History of ablation Goals of care discussed with the patient and her they do not want any chest compressions, defibrillation or intubation in case of any cardiac or respiratory arrest okay with medical therapy and BiPAP, will change CODE STATUS to DNR/DNI Plan for today monitor hemoglobin closely, pacemaker interrogation, spoke to cardiology, spoke to nursing staff, follow blood cultures, up out of bed, PT OT, Attestations Medical Necessity Statement*: Patient requires hospitalization for sepsis, septic shock, pneumonia, Staph epidermidis bacteremia, pacemaker at end of battery life, acute anemia, bilateral pulm embolism, acute hypoxia, hypomagnesemia Coding Level of Care Code Critical Care >/= 30 minutes Critical care time (in minutes): 40 The high probability of a clinically significant, sudden or life threatening deterioration, as referenced in this documentation, required my full and direct attention, intervention and personal management. The critical care time shown is in addition to time spent performing any reported separately billable procedures and includes the following: [x] Data and vital sign review and interpretation [x] Patient assessment, examination and intervention [x] Medication orders and management [x] Patient/Family updates as able [x] Care Coordination and Documentation. Diagnoses Right internal carotid artery aneurysm I67.1 HTN (hypertension) I10 Hypertension type: primary hypertension BASIA (obstructive sleep apnea) G47.33 Cardiomyopathy I25.5 Cardiomyopathy type: ischemic Renal artery stenosis I70.1 PAD (peripheral artery disease) I73.9 Vertebrobasilar insufficiency G45.0 Status post aorto-coronary artery bypass graft Z95.1 Chronic diarrhea K52.9 CKD (chronic kidney disease) stage 3, GFR 30-59 ml/min N18.32 Chronic kidney disease stage 3 subtype: stage 3b (GFR 30-44) Chronic tophaceous gout of both hands [id number].[id number] Septic shock A41.9; R65.21 Pneumonia J18.9 GI bleed K92.2 Acute anemia D64.9 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 Z45.010 Staphylococcus epidermidis bacteremia R78.81; B95.7 NSTEMI (non-ST elevated myocardial infarction) I21.4
[2022-09-18] MEDS: FUROsemide 10 mg/mL SDV 2mL 20 MG IVP (18:21)
--- NOTE | 2022-09-18 18:22 | PC.NURSE ---
c/o short of breath at this time noted positive intake and decreased output orders noted
[2022-09-18 19:01] LABS: Hematocrit 31.3 % (37.0-47.0); Hemoglobin 9.7 g/dL (11.5-15.3)
[2022-09-18 20:00] VITALS: PULSE 74; RESP 18; O2SAT 95
[2022-09-18] MEDS: vancomycin 1,250 MG/250 ML PIGGYBACK 250 MG IV (20:46)
[2022-09-18] MEDS: clopidogrel 75 mg Tablet PO (20:47)
[2022-09-18 22:00] VITALS: PULSE 74
[2022-09-19] VITALS (8 sets, daily range): BP systolic 141–178; BP diastolic 67–80; PULSE 70–73; RESP 16–27; TEMP 36.6–36.8; O2SAT 93–99
[2022-09-19] MEDS: morphine 4 mg/mL SDV 1 mL 1 MG IVP (01:00)
[2022-09-19 03:53] LABS: Basophils % 0.1 %; Eosinophils % 0.1 %; Hematocrit 30.4 % (37.0-47.0); Hemoglobin 9.2 g/dL (11.5-15.3); Lymphocytes % 4.8 %; Mean Corpuscular HGB Conc 30.3 g/dL (30.0-36.0); Mean Corpuscular Hemoglobin 29.4 pg (28.0-34.0); Mean Corpuscular Volume 97.1 fl (81-99); Mean Platelet Volume 10.5 fL (7.4-10.4); Monocytes # 0.7 10^3/uL (0.2-0.9); Monocytes % 3.3 %; Neutrophils # 18.06 10^3/uL (1.8-7.7); Nucleated Red Blood Cells % 0 %; Platelet Count 178 10^3/cmm (130-400); Red Blood Count 3.13 10^6/uL (4.1-5.3); Red Cell Distribution Width 17.8 % (12.1-15.1); White Blood Count 19.8 10^3/uL (4.0-10.0)
[2022-09-19 04:07] LABS: Alanine Aminotransferase 13 U/L (0-33); Albumin Level 3.5 g/dL (3.5-5.2); Alkaline Phosphatase 118 U/L (35-105); Anion Gap 14.9 (5-19); Aspartate Amino Transferase 26 U/L (0-32); Blood Urea Nitrogen 39 mg/dL (8-23); C Reactive Protein 131.2 mg/L (0.0-4.9); Calcium 8.4 mg/dL (8.5-10.5); Carbon Dioxide 21 mmol/L (22-29); Chloride 109 mmol/L (98-107); Globulin 2.9 g/dL (1.3-4.6); Glomerular Filtration Rate 49.1 mL/min (90-130); Glucose 119 mg/dL (65-115); Magnesium 1.6 mg/dL (1.7-2.3); Osmolality Calculated 303 mOsm/kg (285-295); Phosphorus 2.8 mg/dL (2.5-4.5); Potassium 3.9 mmol/L (3.5-5.1); Sodium 141 mmol/L (136-145); Total Bilirubin 0.4 mg/dL (0.15-1.2); Total Protein 6.4 g/dL (6.6-8.7)
[2022-09-19 04:11] LABS: Lactate (Lactic Acid level) 1.3 mmol/L (0.5-2.2)
[2022-09-19] MEDS: atorvastatin 40 mg Tablet PO (06:08)
[2022-09-19] MEDS: allopurinol 100 mg Tablet 400 MG PO (06:08)
[2022-09-19] MEDS: cefepime 2,000 MG in sodium chloride 0.9% (plus) 50 ML 100 MG IV ×2 (06:08→17:50)
[2022-09-19 06:51] LABS: NT Pro B Type Natriuretic Pept 13097 pg/mL (0-125)
[2022-09-19] MEDS: pantoprazole 40 mg SDV IVP ×2 (08:18→20:06)
[2022-09-19] MEDS: sucralfate 1 gm Tablet PO ×2 (08:18→20:07)
[2022-09-19] MEDS: apixaban 5 mg Tablet 10 MG PO ×2 (08:18→20:07)
[2022-09-19] MEDS: magnesium lactate 84 mg Tablet PO ×2 (08:18→17:50)
[2022-09-19] MEDS: diphenhydrAMINE 25 mg Capsule PO (08:46)
[2022-09-19] MEDS: magnesium sulfate premix 2 GM/50 ML PIGGYBACK IV (08:46)
[2022-09-19] MEDS: FUROsemide 10 mg/mL SDV 4mL 40 MG IVP (08:47)
--- NOTE | 2022-09-19 14:10 | PC.OT ---
patient is complaining of shortness of breath,stayed up all last night and is having high BP-155/86,92 02 sat at room air. ot on hold .
--- NOTE | 2022-09-19 14:14 | PM.PN ---
Subjective Subjective: Patient was seen this morning, she tells me that she did not get any sleep overnight, no chest pain, no palpitations, does feel short of breath with exertion, currently on room air, normotensive, Vitals/I&O/Wt Last Vital Signs Temp 98.9 F 09/17/22 18:15 Pulse 72 09/19/22 13:29 Resp 18 09/19/22 07:20 BP 129/63 09/17/22 18:15 Pulse Ox 95 09/19/22 07:20 O2 Del Method Room Air 09/19/22 07:20 O2 Flow Rate 2 09/17/22 16:36 09/18/22 09/19/22 09/19/22 22:59 06:59 14:59 Intake Total 1750 / 2300 450 / 2750 300 / 300 Output Total 2650 / 2650 0 / 2650 Balance -900 / -350 450 / 100 300 / 300 Physical Exam Const: COMMON NORMALS: no acute distress and patient oriented x3 Resp: COMMON NORMALS: normal respiratory effort, No retractions, No use of accessory muscles and clear to auscultation bilaterally AUSCULTATION: clear to auscultation bilaterally Cardio: COMMON NORMALS: regular rate, regular rhythm, S1 normal heart sound present and S2 normal heart sound present RATE: regular rate RHYTHM: regular rhythm HEART SOUNDS: S1 normal heart sound present and S2 normal heart sound present GI: COMMON NORMALS: Normal to inspection, nondistended, normoactive bowel sounds present and non-tender Extremity: COMMON NORMALS: no pedal edema Neuro: COMMON NORMALS: patient oriented x3 Psych: COMMON NORMALS: mental status grossly normal Urinary Catheter Management: Estes: Cath Placed During This Visit: yes Reason for Continuing Indwelling Catheter: Accurate Measurement of Urinary Output in Critically Ill Patients Urinary Catheter Date of Insertion: 09/17/22 Urinary Catheter Time of Insertion: 17:20 Data 09/19/22 03:15 09/19/22 03:15 Micro: Microbiology 09/18/22 09:08 Gram Stain - Final Sputum - Expectorated Sputum Sputum Culture - Preliminary 09/17/22 12:50 Blood Culture - Preliminary Blood Staphylococcus epidermidis 09/19/22 03:15 Blood Culture - Preliminary Blood SPECIMEN COLLECTED 09/19/22 03:15 Blood Culture - Preliminary Blood SPECIMEN COLLECTED 09/17/22 18:45 MRSA Culture - Final Nose 09/17/22 12:51 Blood Culture - Preliminary Blood NEGATIVE TO DATE 09/17/22 18:45 Legionella Urinary Antigen - Final Urine Catheterized 09/17/22 18:45 Bacterial Antigens - Final Urine,Voided A&P Assessment and plan (1) Right internal carotid artery aneurysm: (2) HTN (hypertension): Qualifiers: Hypertension type: primary hypertension Qualified Code(s): I10 - Essential (primary) hypertension (3) BASIA (obstructive sleep apnea): (4) Cardiomyopathy: Qualifiers: Cardiomyopathy type: ischemic Qualified Code(s): I25.5 - Ischemic cardiomyopathy (5) Renal artery stenosis: (6) PAD (peripheral artery disease): (7) Vertebrobasilar insufficiency: (8) Status post aorto-coronary artery bypass graft: (9) Chronic diarrhea: (10) CKD (chronic kidney disease) stage 3, GFR 30-59 ml/min: Qualifiers: Chronic kidney disease stage 3 subtype: stage 3b (GFR 30-44) Qualified Code(s): N18.32 - Chronic kidney disease, stage 3b (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: (12) Septic shock: (13) Pneumonia: (14) GI bleed: (15) Acute anemia: (16) 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: (17) Staphylococcus epidermidis bacteremia: (18) NSTEMI (non-ST elevated myocardial infarction): (19) Acute exacerbation of CHF (congestive heart failure): (20) Systolic CHF: Plan Septic shock related to pneumonia Currently off Levophed Status post sepsis bolus Resolving White count, tachypnea and tachycardia with high lactic acid endorgan damage acute on chronic kidney disease Currently Pro-Xander 4.7, CRP 131 WBC 19.8 Continue vancomycin, and cefepime Staph epidermidis bacteremia with evidence of possible MRSA, 1 out of 4 blood cultures positive -Continue vancomycin -CRRT device in place, placed 3 years ago -Does have cardiac stents -Does have a right central line in place will remove, culture tip -Contamination versus real infection, will discuss with infectious disease -We will repeat blood cultures today, follow Pacemaker at the end of battery life -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 due to ischemic cardiomyopathy -Pacemaker interrogation shows battery is nearly out of life -Spoke to cardiology, as currently patient is Staph epidermidis bacteremia, pneumonia, high risk of infection if battery were to be replaced -We will continue to monitor if she does develop bradycardia, or AV block then she might require temporary pacing -We will continue cardiac monitoring Acute anemia, hemoglobin stable at 9.2 -Evidence of iron deficiency anemia, with iron levels at 12 -Possibly secondary to sepsis, possible slow GI bleed -Protonix, Carafate -Monitor hemoglobin closely -Hold off on IV Venofer infusions 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 elevated white count Bilateral PE, no significant elevation of troponin, right-sided pleuritic chest pain, currently on heparin drip, transition to oral Eliquis -We will monitor hemoglobin as above -Venous ultrasound negative for DVT -Cardiac echo, as below -If she develops further anemia she might require IVC filter placement Acute hypoxia secondary to PE and pneumonia, resolving DuoNeb treatment To decrease work of breathing she can be put on BiPAP overnight Did have shortness of breath yesterday, concerns for systolic CHF exacerbation given Lasix overnight we will give another dose of Lasix today NSTEMI -Likely type II NSTEMI related to supply/demand ischemia and related to sepsis, pneumonia, pulmonary emboli -However cannot rule out cardiac etiology Cardiac echo- -?Diffuse hypokinesia left ventricular ejection fraction of 41%. ?Mildly dilated LV cavityModerately increased left atrial size. ? Mildly increased right atrial size. ?Thickened mitral valve. Trace to mild mitral valve ?regurgitation. ?Thickened aortic valve. ?Mild pulmonary valve regurgitation. ?Mildly dilated IVC. ?There is no pericardial effusion. ?There are no intracardiac masses. ?Compared to the study from 02/08/2022, there is a drop in the LV ?systolic function.? In 2019, the LV ejection fraction was around ?25%. Lactic acidosis, resolved Hypomagnesemia, will replace History of CABG, stent placed in SVG last year, continue dual antiplatelet therapy patient has not missed of any of her medications -Continue Plavix -On Eliquis -Due to anemia hold aspirin Acute on chronic kidney disease stage III: Related to sepsis, antibiotics to be renally dosed History of chronic dizziness related to vertebral basilar insufficiency History of atrial fibrillation -Seen on pacemaker interrogation -Currently rate controlled -Beta-srikanth on hold due to hypotension, septic shock -Monitor -Anticoagulation above History of ablation Goals of care discussed with the patient and her they do not want any chest compressions, defibrillation or intubation in case of any cardiac or respiratory arrest okay with medical therapy and BiPAP, will change CODE STATUS to DNR/DNI Plan for today monitor hemoglobin closely, repeat blood cultures, monitor for fevers, up out of bed, replace magnesium, will diurese for CHF Reviewed blood work, spoke to nursing staff Attestations Medical Necessity Statement*: Patient requires hospitalization due to pneumonia, PEs, CHF exacerbation, staph epi bacteremia, anemia Diagnoses Right internal carotid artery aneurysm I67.1 HTN (hypertension) I10 Hypertension type: primary hypertension BASIA (obstructive sleep apnea) G47.33 Cardiomyopathy I25.5 Cardiomyopathy type: ischemic Renal artery stenosis I70.1 PAD (peripheral artery disease) I73.9 Vertebrobasilar insufficiency G45.0 Status post aorto-coronary artery bypass graft Z95.1 Chronic diarrhea K52.9 CKD (chronic kidney disease) stage 3, GFR 30-59 ml/min N18.32 Chronic kidney disease stage 3 subtype: stage 3b (GFR 30-44) Chronic tophaceous gout of both hands [id number] Septic shock A41.9; R65.21 Pneumonia J18.9 GI bleed K92.2 Acute anemia D64.9 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
[2022-09-19 19:20] LABS: Vancomycin Trough 12.5 ug/mL (10-15)
[2022-09-19] MEDS: vancomycin 1,250 MG/250 ML PIGGYBACK 250 MG IV (20:06)
[2022-09-19] MEDS: clopidogrel 75 mg Tablet PO (20:07)
[2022-09-20] VITALS (10 sets, daily range): BP systolic 144–170; BP diastolic 73–103; PULSE 69–74; RESP 17–25; TEMP 36.5–37; O2SAT 94–97
[2022-09-20 04:16] LABS: Basophils # 0.1 10^3/uL (0.0-0.1); Basophils % 0.3 %; Eosinophils # 0.1 10^3/uL (0.0-0.8); Eosinophils % 0.5 %; Hematocrit 30.7 % (37.0-47.0); Hemoglobin 9.7 g/dL (11.5-15.3); Lymphocytes # 1.3 10^3/uL (0.8-4.8); Lymphocytes % 7.7 %; Mean Corpuscular HGB Conc 31.6 g/dL (30.0-36.0); Mean Corpuscular Hemoglobin 30.2 pg (28.0-34.0); Mean Corpuscular Volume 95.6 fl (81-99); Mean Platelet Volume 10.2 fL (7.4-10.4); Monocytes # 0.7 10^3/uL (0.2-0.9); Monocytes % 4.1 %; Neutrophils # 14.39 10^3/uL (1.8-7.7); Neutrophils % 86.4 %; Nucleated Red Blood Cells % 0 %; Platelet Count 181 10^3/cmm (130-400); Red Blood Count 3.21 10^6/uL (4.1-5.3); Red Cell Distribution Width 17.6 % (12.1-15.1); White Blood Count 16.7 10^3/uL (4.0-10.0)
[2022-09-20 04:35] LABS: Lactate (Lactic Acid level) 0.8 mmol/L (0.5-2.2)
[2022-09-20] MEDS: atorvastatin 40 mg Tablet PO (05:33)
[2022-09-20] MEDS: cefepime 2,000 MG in sodium chloride 0.9% (plus) 50 ML 100 MG IV ×2 (05:34→17:32)
[2022-09-20] MEDS: allopurinol 100 mg Tablet 400 MG PO (05:34)
[2022-09-20 05:35] LABS: Alanine Aminotransferase 18 U/L (0-33); Albumin Level 3.7 g/dL (3.5-5.2); Alkaline Phosphatase 135 U/L (35-105); Anion Gap 18.4 (5-19); Aspartate Amino Transferase 32 U/L (0-32); Blood Urea Nitrogen 25 mg/dL (8-23); C Reactive Protein 160.6 mg/L (0.0-4.9); Calcium 8.8 mg/dL (8.5-10.5); Carbon Dioxide 23 mmol/L (22-29); Chloride 103 mmol/L (98-107); Creatinine Clr Calc Pharmacy 70.5633; Globulin 3.2 g/dL (1.3-4.6); Glomerular Filtration Rate 70.9 mL/min (90-130); Glucose 99 mg/dL (65-115); Magnesium 1.8 mg/dL (1.7-2.3); Osmolality Calculated 296 mOsm/kg (285-295); Phosphorus 2.5 mg/dL (2.5-4.5); Potassium 3.4 mmol/L (3.5-5.1); Sodium 141 mmol/L (136-145); Total Protein 6.9 g/dL (6.6-8.7)
[2022-09-20 06:13] LABS: NT Pro B Type Natriuretic Pept 15890 pg/mL (0-125); Procalcitonin 1.79 ng/mL (0-0.5)
[2022-09-20] MEDS: magnesium lactate 84 mg Tablet PO ×2 (08:06→17:26)
[2022-09-20] MEDS: sucralfate 1 gm Tablet PO ×2 (08:06→21:35)
[2022-09-20] MEDS: apixaban 5 mg Tablet 10 MG PO ×2 (08:06→21:36)
[2022-09-20] MEDS: pantoprazole 40 mg SDV IVP ×2 (08:06→21:35)
--- NOTE | 2022-09-20 08:32 | PC.SOCIAL ---
Pg 2 IMM Explained to pt Pg 2 IMM. No questions voiced. Provided pt a copy. Initialed, dated, & timed a copy & placed in chart.
[2022-09-20] MEDS: potassium chloride ER 20 mEq Tablet 40 MEQ PO (08:45)
[2022-09-20] MEDS: FUROsemide 10 mg/mL SDV 4mL 40 MG IVP (09:09)
--- NOTE | 2022-09-20 13:56 | PM.PN ---
Subjective Subjective: Patient was seen this morning, at bedside, she does complain of shortness of breath, and lower extremity edema, she did not get any sleep last night, also has a headache this morning, had extensive discussion with patient, and her at bedside about her pneumonia, pulm embolism, her FITTER TACKER device, her staph epi bacteremia, her anemia, spent over 60 minutes with patient and Vitals/I&O/Wt Last Vital Signs Temp 97.9 F 09/20/22 12:00 Pulse 71 09/20/22 12:00 Resp 25 H 09/20/22 12:00 BP 160/78 09/20/22 12:00 Pulse Ox 95 09/20/22 12:00 O2 Del Method Room Air 09/20/22 12:00 O2 Flow Rate 2 09/19/22 17:13 09/19/22 09/20/22 09/20/22 22:59 06:59 14:59 Intake Total 450 / 750 290 / 290 Output Total 3400 / 3400 1200 / 4600 3600 / 3600 Balance -2950 / -2650 -1200 / -3850 -3310 / -3310 Physical Exam Const: COMMON NORMALS: no acute distress and patient oriented x3 Resp: COMMON NORMALS: normal respiratory effort, No retractions, No use of accessory muscles and clear to auscultation bilaterally AUSCULTATION: clear to auscultation bilaterally Cardio: COMMON NORMALS: regular rate, regular rhythm, S1 normal heart sound present and S2 normal heart sound present RATE: regular rate RHYTHM: regular rhythm HEART SOUNDS: S1 normal heart sound present and S2 normal heart sound present GI: COMMON NORMALS: Normal to inspection, nondistended, normoactive bowel sounds present and non-tender Extremity: COMMON NORMALS: no clubbing, cyanosis or edema and no pedal edema Neuro: COMMON NORMALS: patient oriented x3 Psych: COMMON NORMALS: mental status grossly normal Urinary Catheter Management: Estes: Cath Placed During This Visit: yes Reason for Continuing Indwelling Catheter: Accurate Measurement of Urinary Output in Critically Ill Patients Urinary Catheter Date of Insertion: 09/17/22 Urinary Catheter Time of Insertion: 17:20 Data 09/20/22 03:38 09/20/22 03:38 Micro: Microbiology 09/17/22 12:50 Blood Culture - Preliminary Blood Staphylococcus epidermidis 09/18/22 09:08 Gram Stain - Final Sputum - Expectorated Sputum Sputum Culture - Final 09/19/22 11:15 Catheter Tip Culture - Preliminary Cvp 09/19/22 03:15 Blood Culture - Preliminary Blood NEGATIVE TO DATE 09/19/22 03:15 Blood Culture - Preliminary Blood NEGATIVE TO DATE 09/20/22 00:35 C.difficile Toxin B Gene (PCR) - Final Stool Routine Collection 09/20/22 00:35 Occult Blood (FIT) - Final Stool Routine Collection A&P Assessment and plan (1) Right internal carotid artery aneurysm: (2) HTN (hypertension): Qualifiers: Hypertension type: primary hypertension Qualified Code(s): I10 - Essential (primary) hypertension (3) BASIA (obstructive sleep apnea): (4) Cardiomyopathy: Qualifiers: Cardiomyopathy type: ischemic Qualified Code(s): I25.5 - Ischemic cardiomyopathy (5) Renal artery stenosis: (6) PAD (peripheral artery disease): (7) Vertebrobasilar insufficiency: (8) Status post aorto-coronary artery bypass graft: (9) Chronic diarrhea: (10) CKD (chronic kidney disease) stage 3, GFR 30-59 ml/min: Qualifiers: Chronic kidney disease stage 3 subtype: stage 3b (GFR 30-44) Qualified Code(s): N18.32 - Chronic kidney disease, stage 3b (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: (12) Septic shock: (13) Pneumonia: (14) GI bleed: (15) Acute anemia: (16) 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: (17) Staphylococcus epidermidis bacteremia: (18) NSTEMI (non-ST elevated myocardial infarction): (19) Acute exacerbation of CHF (congestive heart failure): (20) Systolic CHF: Plan Septic shock related to pneumonia, Staph epidermidis bacteremia Currently off Levophed Status post sepsis bolus Resolving White count, tachypnea and tachycardia with high lactic acid endorgan damage acute on chronic kidney disease Continue vancomycin, and cefepime Staph epidermidis bacteremia, 2 out of 4 blood cultures positive, penicillin resistant -Continue vancomycin -CRtD device in place, placed 3 years ago -Does have cardiac stents -Does have a right central line in place, which was removed, cultured tip so far negative -Contamination versus real infection, as 2 out of 4 blood cultures are positive, concerning for systemic infection -Repeat blood cultures so far Pacemaker at the end of battery life -FITTER TACKER device placed due to ischemic cardiomyopathy -Pacemaker interrogation shows battery is nearly out of life -Spoke to cardiology, as currently patient is Staph epidermidis bacteremia, pneumonia, high risk of infection if battery were to be replaced -We will continue to monitor if she does develop bradycardia, or AV block then she might require temporary pacing -We will continue cardiac monitoring Acute anemia, hemoglobin stable at 9.7 -Evidence of iron deficiency anemia, with iron levels at 12 -Possibly secondary to sepsis, possible slow GI bleed -Protonix, Carafate -Monitor hemoglobin closely -Hold off on IV Venofer 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 elevated white count Bilateral PE, no significant elevation of troponin, right-sided pleuritic chest pain, currently on heparin drip, transition to oral Eliquis -We will monitor hemoglobin as above -Venous ultrasound negative for DVT -Cardiac echo, as below -If she develops further anemia she might require IVC filter placement Acute hypoxia secondary to PE and pneumonia, resolving DuoNeb treatment To decrease work of breathing she can be put on BiPAP overnight Systolic CHF exacerbation, has elevated BNP, complaints of shortness of breath, -We will diurese again today, 1 dose of Lasix with potassium -Monitor urine output NSTEMI -Likely type II NSTEMI related to supply/demand ischemia and related to sepsis, pneumonia, pulmonary emboli -However cannot rule out cardiac etiology Cardiac echo- -?Diffuse hypokinesia left ventricular ejection fraction of 41%. ?Mildly dilated LV cavityModerately increased left atrial size. ? Mildly increased right atrial size. ?Thickened mitral valve. Trace to mild mitral valve ?regurgitation. ?Thickened aortic valve. ?Mild pulmonary valve regurgitation. ?Mildly dilated IVC. ?There is no pericardial effusion. ?There are no intracardiac masses. ?Compared to the study from 02/08/2022, there is a drop in the LV ?systolic function.? In 2019, the LV ejection fraction was around ?25%. Lactic acidosis, resolved Hypomagnesemia, will replace History of CABG, stent placed in SVG last year, continue dual antiplatelet therapy patient has not missed of any of her medications -Continue Plavix -On Eliquis -Due to anemia hold aspirin Acute on chronic kidney disease stage III: Related to sepsis, antibiotics to be renally dosed History of chronic dizziness related to vertebral basilar insufficiency History of atrial fibrillation -Seen on pacemaker interrogation -Currently rate controlled -Beta-srikanth on hold due to hypotension, septic shock -Monitor -Anticoagulation above History of ablation Goals of care discussed with the patient and her they do not want any chest compressions, defibrillation or intubation in case of any cardiac or respiratory arrest okay with medical therapy and BiPAP, will change CODE STATUS to DNR/DNI Plan for today monitor hemoglobin closely, repeat blood cultures, monitor for fevers, up out of bed, replace magnesium, will diurese for CHF Reviewed blood work, spoke to nursing staff, infectious disease Attestations Medical Necessity Statement*: Patient requires high specialization for Staph epidermidis bacteremia, fluid overload, pneumonia, pulmonary embolism Coding Level of Care Code 76930 High Time for a total of 70 minutes, includes reviewing past or interval history, examining/interviewing patient, placing orders, counseling patient/family/other support, updating patient/family/other support, discussing plan of care with staff, communicating with other healthcare providers, documenting encounter and coordinating care Diagnoses Right internal carotid artery aneurysm I67.1 HTN (hypertension) I10 Hypertension type: primary hypertension BASIA (obstructive sleep apnea) G47.33 Cardiomyopathy I25.5 Cardiomyopathy type: ischemic Renal artery stenosis I70.1 PAD (peripheral artery disease) I73.9 Vertebrobasilar insufficiency G45.0 Status post aorto-coronary artery bypass graft Z95.1 Chronic diarrhea K52.9 CKD (chronic kidney disease) stage 3, GFR 30-59 ml/min N18.32 Chronic kidney disease stage 3 subtype: stage 3b (GFR 30-44) Chronic tophaceous gout of both hands [id number] Septic shock A41.9; R65.21 Pneumonia J18.9 GI bleed K92.2 Acute anemia D64.9 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
--- NOTE | 2022-09-20 17:17 | P.CONIM_ITS ---
Providers/Reason For Consult Consulting Physician/Specialty*: Kel Molina MD/ Cardiology Reason for Consult*: OLVIN to rule out endocarditis Requesting Physician: Dr Loya Attending Physician: Ish Loya MD Primary Care Provider: Derek Dowd DO History of Present Illness History of Present Illness Essie Alejandre is a 72 year old female with past medical history of CAD, TRANSPORTATION COORDINATOR-D in place, who came to hospital with shortness of breath. She has been found to have a small PE, pneumonia. Her device battery is at end-of-life. She denies chest pain. Cardiology was consulted to perform transesophageal ec hocardiogram to rule of endocarditis as her blood cultures are growing Staph epidermidis. 2/4 bottles are positive. Review of Systems Const: Reports: chills Eyes: Denies: change in vision ENMT: Denies: throat pain Card: Reports: dyspnea on exertion Resp: Reports: dyspnea GI: Reports: nausea and diarrhea : Denies: flank pain Musc: Denies: neck pain Skin/Breast: Denies: rash Medications/Allergies Home Medications Medication Instructions Recorded Confirmed Last Taken Type multivitamin 1 tab PO QAM 06/08/21 09/17/22 09/17/22 History sour alonso extract 1,000 mg 1,000 mg PO BEDTIME 06/23/21 09/17/22 09/16/22 History capsule (Tart Alonso Extract) alprazolam 0.5 mg tablet 0.5 mg PO DAILY PRN Anxiety 02/07/22 09/17/22 Unknown History isosorbide mononitrate 60 mg 60 mg PO QAM 03/24/22 09/17/22 09/17/22 History tablet,extended release 24 hr metoprolol tartrate 25 mg tablet 25 mg PO BID 03/24/22 09/17/22 09/17/22 History omega-3 fatty acids 1,000 mg 1,000 mg PO BID 03/24/22 09/17/22 09/17/22 History capsule potassium chloride 20 mEq 20 meq PO QAM 03/24/22 09/17/22 09/17/22 History tablet,extended release allopurinol 100 mg tablet 400 mg PO QAM #30 tabs 03/27/22 09/17/22 09/17/22 Rx aspirin 81 mg tablet,delayed 81 mg PO BEDTIME #120 tabs 03/27/22 09/17/22 05/05/31 Rx release (Adult Aspirin Regimen) atorvastatin 40 mg tablet 40 mg PO QAM #120 tabs 03/27/22 09/17/22 03/29/22 Rx furosemide 40 mg tablet 40 mg PO QAM #30 tabs 03/27/22 09/17/22 09/16/22 Rx tizanidine 4 mg capsule 4 mg PO Q6H PRN muscle spasticity 03/29/22 09/17/22 Unknown Rx #20 caps clopidogrel 75 mg tablet 75 mg PO BEDTIME #90 tabs 05/28/22 09/17/22 09/16/22 Rx pantoprazole 40 mg tablet,delayed 40 mg PO BID #60 tabs 07/14/22 09/17/22 09/17/22 Rx release pregabalin 75 mg capsule (Lyrica) 75 mg PO BID #60 caps 07/15/22 09/17/22 09/17/22 Rx albuterol sulfate 90 mcg/actuation 2 puff inhalation QID PRN 07/28/22 09/17/22 09/17/22 Rx aerosol inhaler Shortness Of Breath #6.7 grams nitroglycerin 0.4 mg sublingual 0.4 mg sublingual Q5M PRN Chest 08/24/22 09/17/22 Unknown Rx tablet (Nitrostat) Pain #14 tabs sertraline 100 mg tablet 100 mg PO QAM #90 tabs 08/24/22 09/17/22 09/17/22 Rx tramadol 100 mg tablet 50 mg PO DAILY PRN Pain #30 tabs 08/24/22 09/17/22 Unknown Rx cefuroxime axetil 500 mg tablet 500 mg PO BID PRN RUTIs #30 tabs 09/14/22 09/17/22 Unknown Rx acetaminophen 650 mg 1,300 mg PO BID 09/17/22 09/17/22 09/17/22 History tablet,extended release (Tylenol Arthritis Pain) diclofenac sodium 75 mg 75 mg PO Q12H PRN Pain 09/17/22 09/17/22 Unknown History tablet,delayed release lisinopril 20 mg tablet 20 mg PO BEDTIME 09/17/22 09/17/22 09/16/22 History magnesium chloride 71.5 mg 71.5 mg PO BID 09/17/22 09/17/22 09/17/22 History (magnesium chloride) tablet,delayed release (Slow-Mag) Allergies Allergy/AdvReac Type Severity Reaction Status Date / Time levofloxacin [From Levaquin] Allergy ALGY-Redness Verified 09/17/22 19:20 of Skin Sulfa (Sulfonamide Allergy hives Verified 09/17/22 13:54 Antibiotics) adhesive tape AdvReac Mild Unknown Verified 09/17/22 13:54 Current Medications Generic Name Dose Route Start Last Admin Trade Name Freq PRN Reason Stop Dose Admin Acetaminophen 650 mg 09/17/22 18:18 09/18/22 20:58 Acetaminophen 325 Mg Tablet PO 650 mg BID PRN Administration pain Allopurinol 400 mg 09/18/22 06:00 09/20/22 05:34 Allopurinol 100 Mg Tablet PO 400 mg QAM JEREMY Administration Apixaban 10 mg 09/18/22 09:00 09/20/22 08:06 Apixaban 5 Mg Tablet PO 10 mg BID@0900,2100 JEREMY Administration Atorvastatin Calcium 40 mg 09/18/22 06:00 09/20/22 05:33 Atorvastatin 40 Mg Tablet PO 40 mg QAM JEREMY Administration Clopidogrel Bisulfate 75 mg 09/17/22 21:00 09/19/22 20:07 Clopidogrel 75 Mg Tablet PO 75 mg BEDTIME JEREMY Administration Diphenhydramine HCl 25 mg 09/19/22 08:36 09/19/22 08:46 Diphenhydramine 25 Mg Capsule PO 25 mg Q4H PRN Administration ITCHING Furosemide 40 mg 09/20/22 09:00 09/20/22 09:09 Furosemide 10 Mg/Ml Sdv 4ml IVP 40 mg ONCE JEREMY Administration Cefepime HCl 2,000 mg/ Sodium 50 mls @ 100 mls/hr 09/17/22 18:30 09/20/22 07:01 Chloride IV Infused Q12H JEREMY Infusion Protocol Vancomycin/PEG/NADA/Lysine/Water 1,250 mg in 250 mls @ 250 mls/hr 09/17/22 19:30 09/19/22 21:15 Vancocin IV Infused Q24H JEREMY Infusion Magnesium Lactate 84 mg 09/18/22 09:00 09/20/22 08:06 Magnesium Lactate 84 Mg Tablet PO 84 mg BID JEREMY Administration Morphine Sulfate 1 mg 09/19/22 00:52 09/19/22 01:00 Morphine 4 Mg/Ml Sdv 1 Ml IVP 1 mg ONCE PRN Administration SEVERE PAIN Pantoprazole Sodium 40 mg 09/18/22 08:30 09/20/22 08:06 Pantoprazole 40 Mg Sdv IVP 40 mg Q12H JEREMY Administration Sucralfate 1 gm 09/18/22 08:30 09/20/22 08:06 Sucralfate 1 Gm Tablet PO 1 gm Q12H JEREMY Administration PFSH Acute PFSH: Medical History Acute cystitis without hematuria Anticoagulant long-term use Atrial fibrillation Balance disorder Cardiac 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 therapy 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 (TRANSPORTATION COORDINATOR-D) in place Cardiomyopathy CHF (congestive heart failure) Chronic renal insufficiency, stage II (mild) Chronic tophaceous gout of both hands CKD (chronic kidney disease) stage 3, GFR 30-59 ml/min Cognitive impairment Elevated troponin I level GERD (gastroesophageal reflux disease) Gout HTN (hypertension) Hyperlipidemia Intracranial atherosclerosis Iron deficiency anemia Left bundle branch block MRSA carrier NSTEMI (non-ST elevated myocardial infarction) BASIA (obstructive sleep apnea) PAD (peripheral artery disease) Recurrent UTI Renal artery stenosis Right internal carotid artery aneurysm Sleep apnea Vertebral artery stenosis Vertebrobasilar insufficiency Surgical History H/O cardiac radiofrequency ablation S/P angioplasty with stent S/P appendectomy S/P CABG (coronary artery bypass graft) S/P section S/P hysterectomy S/P ICD (internal cardiac 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) procedure Status post aorto-coronary artery bypass graft Status post tubal ligation Family History Father , AT AGE 65 Hyperlipidemia CAD (coronary artery disease) Hypertension Rheumatoid arthritis Mother , AT AGE 65 Hyperlipidemia CAD (coronary artery disease) Hypertension Diabetes Sister Hyperlipidemia CAD (coronary artery disease) Hypertension Diabetes Other Cancer Social History Smoking and tobacco status: never smoked Second hand smoke exposure: No Alcohol intake: never Desire information about alcohol rehabilitation?: No Counseling given: No Substance/Drug Use: never Desire information about substance/drug rehabilitation?: No Counseling given: No Marital status: Current occupational status: retired Female Reproductive History: Spontaneous abortions: No Vitals/I&O/Wt Last Vital Signs Temp 97.9 F 09/20/22 12:00 Pulse 71 09/20/22 14:00 Resp 25 H 09/20/22 12:00 BP 160/78 09/20/22 12:00 Pulse Ox 95 09/20/22 12:00 O2 Del Method Room Air 09/20/22 12:00 O2 Flow Rate 2 09/19/22 17:13 09/20/22 09/20/22 09/20/22 06:59 14:59 22:59 Intake Total 290 / 290 0 / 290 Output Total 1200 / 4600 3600 / 3600 Balance -1200 / -3850 -3310 / -3310 0 / -3310 Physical Exam Narrative: GENERAL: Patient is alert, awake and oriented x3. [] NECK: No jugular vein distension. [] HEENT: No cyanosis. No icterus. No pallor. [] HEART: Regular S1 and S2. No murmur, rub or gallop. [] LUNGS: Clear to auscultate bilaterally. [] CENTRAL NERVOUS SYSTEM: Grossly nonfocal. [] EXTREMITIES: Lower extremities with no edema Urinary Catheter Management: Estes: Cath Placed During This Visit: yes Reason for Continuing Indwelling Catheter: Accurate Measurement of Urinary Output in Critically Ill Patients Urinary Catheter Date of Insertion: 09/17/22 Urinary Catheter Time of Insertion: 17:20 Data 09/21/22 03:12 09/21/22 03:12 Micro: Microbiology 09/17/22 12:50 Blood Culture - Preliminary Blood Staphylococcus epidermidis 09/18/22 09:08 Gram Stain - Final Sputum - Expectorated Sputum Sputum Culture - Final 09/19/22 11:15 Catheter Tip Culture - Preliminary Cvp 09/19/22 03:15 Blood Culture - Preliminary Blood NEGATIVE TO DATE 09/19/22 03:15 Blood Culture - Preliminary Blood NEGATIVE TO DATE 09/20/22 00:35 C.difficile Toxin B Gene (PCR) - Final Stool Routine Collection 09/20/22 00:35 Occult Blood (FIT) - Final Stool Routine Collection A&P Assessment and plan (1) Systolic CHF: (2) Staphylococcus epidermidis bacteremia: (3) 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: (4) Pulmonary embolism: (5) HTN (hypertension): Qualifiers: Hypertension type: primary hypertension Qualified Code(s): I10 - Essential (primary) hypertension (6) Cardiac 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 therapy 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 (TRANSPORTATION COORDINATOR-D) in place: Plan We will plan on transesophageal echocardiogram tomorrow to rule out endocarditis. Evaluation from ID will be important as patient's battery life f or TRANSPORTATION COORDINATOR-D is at end-of-life. Repeat cultures are still pending. If device does not appear to be the source then will need a discussion regarding timing of generator change out versus the placement of TRANSPORTATION COORDINATOR-D system. NPO past midnight Antibiotic therapy per primary team. Thank you for involving us with care of this patient. We will continue to follow. Please call with questions Consult Attestations Medical Necessity Statement: Care expected to cross 2 midnights. Coding Level of Care Code Acute Code for [facility] Fwd Diagnoses Systolic CHF I50.20 Staphylococcus epidermidis bacteremia R78.81; B95.7 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 Z45.010 Pulmonary embolism I26.99 HTN (hypertension) I10 Hypertension type: primary hypertension Cardiac 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 therapy 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 (TRANSPORTATION COORDINATOR-D) in place Z95.810
[2022-09-20] MEDS: simethicone 80 mg Chew PO (17:26)
[2022-09-20] MEDS: vancomycin 1,250 MG/250 ML PIGGYBACK 250 MG IV (18:30)
[2022-09-20] MEDS: diphenhydrAMINE 25 mg Capsule PO (21:36)
[2022-09-20] MEDS: clopidogrel 75 mg Tablet PO (21:36)
[2022-09-21] VITALS (13 sets, daily range): BP systolic 125–181; BP diastolic 60–86; PULSE 70–73; RESP 16–26; TEMP 36.3–36.8; O2SAT 94–98
[2022-09-21] MEDS: acetaminophen 325 mg Tablet 650 MG PO (00:30)
[2022-09-21 04:16] LABS: Basophils # 0.1 10^3/uL (0.0-0.1); Basophils % 0.5 %; Eosinophils # 0.3 10^3/uL (0.0-0.8); Eosinophils % 2.2 %; Hematocrit 33.5 % (37.0-47.0); Hemoglobin 10.3 g/dL (11.5-15.3); Lymphocytes # 1.2 10^3/uL (0.8-4.8); Lymphocytes % 9.3 %; Mean Corpuscular HGB Conc 30.7 g/dL (30.0-36.0); Mean Corpuscular Hemoglobin 29.1 pg (28.0-34.0); Mean Corpuscular Volume 94.6 fl (81-99); Mean Platelet Volume 10.3 fL (7.4-10.4); Monocytes # 0.7 10^3/uL (0.2-0.9); Neutrophils # 10.83 10^3/uL (1.8-7.7); Neutrophils % 81.4 %; Nucleated Red Blood Cells % 0 %; Platelet Count 206 10^3/cmm (130-400); Red Blood Count 3.54 10^6/uL (4.1-5.3); Red Cell Distribution Width 16.7 % (12.1-15.1); White Blood Count 13.3 10^3/uL (4.0-10.0)
[2022-09-21 04:51] LABS: NT Pro B Type Natriuretic Pept 12397 pg/mL (0-125); Procalcitonin 0.89 ng/mL (0-0.5)
[2022-09-21 05:02] LABS: Alanine Aminotransferase 16 U/L (0-33); Albumin Level 3.6 g/dL (3.5-5.2); Alkaline Phosphatase 157 U/L (35-105); Blood Urea Nitrogen 15 mg/dL (8-23); C Reactive Protein 166.1 mg/L (0.0-4.9); Calcium 9.4 mg/dL (8.5-10.5); Carbon Dioxide 24 mmol/L (22-29); Chloride 97 mmol/L (98-107); Creatinine Clr Calc Pharmacy 70.5633; Globulin 3.4 g/dL (1.3-4.6); Glomerular Filtration Rate 82.7 mL/min (90-130); Glucose 100 mg/dL (65-115); Magnesium 1.6 mg/dL (1.7-2.3); Osmolality Calculated 285 mOsm/kg (285-295); Phosphorus 2.8 mg/dL (2.5-4.5); Sodium 137 mmol/L (136-145); Total Bilirubin 1.4 mg/dL (0.15-1.2)
[2022-09-21 05:03] LABS: Anion Gap 19.4 (5-19); Aspartate Amino Transferase 31 U/L (0-32); Potassium 3.4 mmol/L (3.5-5.1)
[2022-09-21] MEDS: cefepime 2,000 MG in sodium chloride 0.9% (plus) 50 ML 100 MG IV (06:12)
[2022-09-21] MEDS: atorvastatin 40 mg Tablet PO (06:12)
[2022-09-21] MEDS: allopurinol 100 mg Tablet 400 MG PO (06:13)
[2022-09-21 08:43] LABS: Gamma Glutamyl Transferase 139 U/L (5-36); Lipase 20 U/L (13-60)
[2022-09-21] MEDS: lidocaine 1% 5 ML in potassium chloride premix 100 ML 26.25 ML IV (08:56)
[2022-09-21] MEDS: sucralfate 1 gm Tablet PO (08:58)
[2022-09-21] MEDS: magnesium sulfate premix 2 GM/50 ML PIGGYBACK IV (08:58)
[2022-09-21] MEDS: pantoprazole 40 mg SDV IVP (08:58)
[2022-09-21] MEDS: magnesium lactate 84 mg Tablet PO (08:58)
[2022-09-21] MEDS: apixaban 5 mg Tablet 10 MG PO (09:02)
[2022-09-21] MEDS: sodium chloride 0.9% 1,000 ML 30 ML IV (11:12)
--- NOTE | 2022-09-21 11:30 | USCV_ITS ---
Essie Alejandre Age: 72 Gender: F : 1950 Exam Date: 09/21/2022 11:51 Ordering Phys: Ish Loya MD Technologist: Horacio Anderson [place]am [place] [facility] [place]: ? veg BP: 169 / 70 HR: Rhythm: Sinus Technical Quality: Good MEASUREMENTS (Male / Female) Normal Values DOPPLER TR Peak Velocity 324.4 cm/s TR Peak Gradient 42.1 mmHg TR Mean Velocity 324.4 cm/s TR Mean Gradient 42.1 mmHg TR Velocity Time Integral 0.0 cm Medications Complications None Proc. Components After anesthesia team administered sedation, we advanced the OLVIN probe. FINDINGS Left Ventricle LV systolic function is mildly reduced with EF of 45 to 50%. Right Ventricle Normal in size and function. Pacemaker lead is noted. No vegetations seen. Right Atrium Normal in size. Right atrial pacemaker lead is seen. No evidence of vegetation. Left Atrium Left atrium is dilated. LA Appendage No left atrial appendage thrombus. Smoke seen. IA Septum No right to left shunting seen Mitral Valve Structurally normal mitral valve. No evidence of a vegetation. Mild mitral regurgitation. Aortic Valve Aortic valve is thickened and calcified. No vegetation is seen. Tricuspid Valve Structurally normal tricuspid valve. Mild tricuspid regurgitation. Pulmonic Valve Grossly normal Pericardium Normal Aorta Mild to moderate aortic plaque CONCLUSIONS LV systolic function is mildly reduced with EF of 45 to 50%. Pacemaker lead is seen in RV and RA. No evidence of vegetation. Valvular structures not for evidence of vegetation. Mild tricuspid regurgitation. Mild mitral regurgitation. Mild to moderate aortic plaque Kel Molina MD (Electronically Signed) Final Date: 29 Sep 2022 10:30 S
--- NOTE | 2022-09-21 11:47 | P.ANESASSM_ITS ---
Pre-Anesthetic Assessment Height/Weight: Height 1.65 m Weight 85.275 kg Temp Pulse Resp BP Pulse Ox O2 Del Method O2 Flow Rate 97.9 F 73 18 181/85 97 Room Air 2 09/21/22 11:03 09/21/22 11:03 09/21/22 11:03 09/21/22 11:03 09/21/22 11:03 09/21/22 11:03 09/19/22 17:13 Operation Date: 09/21/22 11:30 Proposed Procedures p OLVIN- Dr. Molina wants this to follow 1100 OLVIN put on schedule for holding place(Not Applicable) - Kel Molina M.D Familial anesthetic complications: none Was Beta Misa taken within 24 hours: Yes Was Clonidine taken within 24 hours: N/A Last intake: Intake Last Liquid Date 09/21/22 Last Liquid Time 08:00 Last Solid Date 09/20/22 Last Solid Time 16:00 Social No alcohol and No tobacco (former smoker) Exam alert and oriented x 3 Airway Submandibular: within normal limits Cervical ROM: within normal limits Mallampati: Class III Dentition: full (some missing) History/ROS No significant history except as noted Pulmonary Cough, Exertional Dyspnea and Shortness of Breath CV/HEM Coronary Artery Disease (CABG x4 2001, stents x2), Hypertension and Peripheral Vascular Disease (pt reports multiple stents in my legs ) pt states 1 kidney doesnt work Hepatic None reported GI Gastroesophageal Reflux Disease Metabolic Hyperlipidemia and Morbid Obesity [facility] None reported Neuropsych Cerebrovascular Accident (walks with cane/walker, but pt reports no deficits from stroke) Anesthetic Plan ASA status: 3 Anesthesia: Anesthesia Evaluation and MAC Medications/Allergies Home Medications Medication Instructions Recorded Confirmed Last Taken Type multivitamin 1 tab PO QAM 06/08/21 09/17/22 09/17/22 History sour alonso extract 1,000 mg 1,000 mg PO BEDTIME 06/23/21 09/17/22 09/16/22 History capsule (Tart Alonso Extract) alprazolam 0.5 mg tablet 0.5 mg PO DAILY PRN Anxiety 02/07/22 09/17/22 Unknown History isosorbide mononitrate 60 mg 60 mg PO QAM 03/24/22 09/17/22 09/17/22 History tablet,extended release 24 hr metoprolol tartrate 25 mg tablet 25 mg PO BID 03/24/22 09/17/22 09/17/22 History omega-3 fatty acids 1,000 mg 1,000 mg PO BID 03/24/22 09/17/22 09/17/22 History capsule potassium chloride 20 mEq 20 meq PO QAM 03/24/22 09/17/22 09/17/22 History tablet,extended release allopurinol 100 mg tablet 400 mg PO QAM #30 tabs 03/27/22 09/17/22 09/17/22 Rx aspirin 81 mg tablet,delayed 81 mg PO BEDTIME #120 tabs 03/27/22 09/17/22 09/16/22 Rx release (Adult Aspirin Regimen) atorvastatin 40 mg tablet 40 mg PO QAM #120 tabs 03/27/22 09/17/22 03/29/22 Rx furosemide 40 mg tablet 40 mg PO QAM #30 tabs 03/27/22 09/17/22 09/16/22 Rx tizanidine 4 mg capsule 4 mg PO Q6H PRN muscle spasticity 03/29/22 09/17/22 Unknown Rx #20 caps clopidogrel 75 mg tablet 75 mg PO BEDTIME #90 tabs 05/28/22 09/17/22 09/16/22 Rx pantoprazole 40 mg tablet,delayed 40 mg PO BID #60 tabs 07/14/22 09/17/22 09/17/22 Rx release pregabalin 75 mg capsule (Lyrica) 75 mg PO BID #60 caps 07/15/22 09/17/22 09/17/22 Rx albuterol sulfate 90 mcg/actuation 2 puff inhalation QID PRN 07/28/22 09/17/22 09/17/22 Rx aerosol inhaler Shortness Of Breath #6.7 grams nitroglycerin 0.4 mg sublingual 0.4 mg sublingual Q5M PRN Chest 08/24/22 09/17/22 Unknown Rx tablet (Nitrostat) Pain #14 tabs sertraline 100 mg tablet 100 mg PO QAM #90 tabs 08/24/22 09/17/22 09/17/22 Rx tramadol 100 mg tablet 50 mg PO DAILY PRN Pain #30 tabs 08/24/22 09/17/22 Unknown Rx cefuroxime axetil 500 mg tablet 500 mg PO BID PRN RUTIs #30 tabs 09/14/22 09/17/22 Unknown Rx acetaminophen 650 mg 1,300 mg PO BID 09/17/22 09/17/22 09/17/22 History tablet,extended release (Tylenol Arthritis Pain) diclofenac sodium 75 mg 75 mg PO Q12H PRN Pain 09/17/22 09/17/22 Unknown History tablet,delayed release lisinopril 20 mg tablet 20 mg PO BEDTIME 09/17/22 09/17/22 09/16/22 History magnesium chloride 71.5 mg 71.5 mg PO BID 09/17/22 09/17/22 09/17/22 History (magnesium chloride) tablet,delayed release (Slow-Mag) Allergies Allergy/AdvReac Type Severity Reaction Status Date / Time levofloxacin [From Levaquin] Allergy ALGY-Redness Verified 09/17/22 19:20 of Skin Sulfa (Sulfonamide Allergy hives Verified 09/17/22 13:54 Antibiotics) adhesive tape AdvReac Mild Unknown Verified 09/17/22 13:54 Current Medications Generic Name Dose Route Start Last Admin Trade Name Freq PRN Reason Stop Dose Admin Acetaminophen 650 mg 09/17/22 18:18 09/21/22 00:30 Acetaminophen 325 Mg Tablet PO 650 mg BID PRN Administration pain Allopurinol 400 mg 09/18/22 06:00 09/21/22 06:13 Allopurinol 100 Mg Tablet PO 400 mg QAM JEREMY Administration Apixaban 10 mg 09/18/22 09:00 09/21/22 09:02 Apixaban 5 Mg Tablet PO 10 mg BID@0900,2100 JEREMY Administration Atorvastatin Calcium 40 mg 09/18/22 06:00 09/21/22 06:12 Atorvastatin 40 Mg Tablet PO 40 mg QAM JEREMY Administration Clopidogrel Bisulfate 75 mg 09/17/22 21:00 09/20/22 21:36 Clopidogrel 75 Mg Tablet PO 75 mg BEDTIME JEREMY Administration Diphenhydramine HCl 25 mg 09/19/22 08:36 09/20/22 21:36 Diphenhydramine 25 Mg Capsule PO 25 mg Q4H PRN Administration ITCHING Furosemide 40 mg 09/20/22 09:00 09/20/22 09:09 Furosemide 10 Mg/Ml Sdv 4ml IVP 40 mg ONCE JEREMY Administration Cefepime HCl 2,000 mg/ Sodium 50 mls @ 100 mls/hr 09/17/22 18:30 09/21/22 07:35 Chloride IV Infused Q12H JEREMY Infusion Protocol Vancomycin/PEG/NADA/Lysine/Water 1,250 mg in 250 mls @ 250 mls/hr 09/17/22 19:30 09/20/22 20:11 Vancocin IV Infused Q24H JEREMY Infusion Lidocaine HCl 5 ml/ Potassium 105 mls @ 26.25 mls/hr 09/21/22 07:57 09/21/22 08:56 Chloride IV 09/21/22 11:56 26.25 mls/hr ONCE ONE Administration Sodium Chloride 1,000 mls @ 30 mls/hr 09/21/22 11:00 09/21/22 11:12 Sodium Chloride 0.9% IV 09/22/22 10:59 30 mls/hr .Q24H JEREMY Administration Magnesium Lactate 84 mg 09/18/22 09:00 09/21/22 08:58 Magnesium Lactate 84 Mg Tablet PO 84 mg BID JEREMY Administration Morphine Sulfate 1 mg 09/19/22 00:52 09/19/22 01:00 Morphine 4 Mg/Ml Sdv 1 Ml IVP 1 mg ONCE PRN Administration SEVERE PAIN Pantoprazole Sodium 40 mg 09/18/22 08:30 09/21/22 08:58 Pantoprazole 40 Mg Sdv IVP 40 mg Q12H JEREMY Administration Simethicone 80 mg 09/20/22 16:30 09/20/22 17:26 Simethicone 80 Mg Chew PO 80 mg BID PRN Administration FLATULENCE Sucralfate 1 gm 09/18/22 08:30 09/21/22 08:58 Sucralfate 1 Gm Tablet PO 1 gm Q12H JEREMY Administration [facility] Anesthesia Medical History (Updated 09/19/22 @ 14:19 by Ish Loya MD) Acute cystitis without hematuria Anticoagulant long-term use Atrial fibrillation Balance disorder Cardiac 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 therapy 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 Cardiomyopathy CHF (congestive heart failure) Chronic renal insufficiency, stage II (mild) Chronic tophaceous gout of both hands CKD (chronic kidney disease) stage 3, GFR 30-59 ml/min Cognitive impairment Elevated troponin I level GERD (gastroesophageal reflux disease) Gout HTN (hypertension) Hyperlipidemia Intracranial atherosclerosis Iron deficiency anemia Left bundle branch block MRSA carrier NSTEMI (non-ST elevated myocardial infarction) BASIA (obstructive sleep apnea) PAD (peripheral artery disease) Recurrent UTI Renal artery stenosis Right internal carotid artery aneurysm Sleep apnea Vertebral artery stenosis Vertebrobasilar insufficiency Surgical History H/O cardiac radiofrequency ablation S/P angioplasty with stent S/P appendectomy S/P CABG (coronary artery bypass graft) S/P section S/P hysterectomy S/P ICD (internal cardiac 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) procedure Status post aorto-coronary artery bypass graft Status post tubal ligation Family History Father , AT AGE 65 Hyperlipidemia CAD (coronary artery disease) Hypertension Rheumatoid arthritis Mother , AT AGE 65 Hyperlipidemia CAD (coronary artery disease) Hypertension Diabetes Sister Hyperlipidemia CAD (coronary artery disease) Hypertension Diabetes Other Cancer Social History Smoking and tobacco status: never smoked Second hand smoke exposure: No Alcohol intake: never Desire information about alcohol rehabilitation?: No Counseling given: No Substance/Drug Use: never Desire information about substance/drug rehabilitation?: No Counseling given: No Marital status: Current occupational status: retired Female Reproductive History Spontaneous abortions: No Data Anesthesia 09/21/22 03:12 09/21/22 03:12 Short CBC 09/20/22 09/21/22 Range/Units 03:38 03:12 WBC 16.7 H 13.3 H (4.0-10.0) 10^3/uL Hgb 9.7 L 10.3 L (11.5-15.3) g/dL Hct 30.7 L 33.5 L (37.0-47.0) % MCV 95.6 94.6 (81-99) fl Plt Count 181 206 (130-400) 10^3/cmm Neut % (Auto) 86.4 81.4 % Neut # (Auto) 14.39 H 10.83 H (1.8-7.7) 10^3/uL BMP 09/20/22 09/21/22 03:38 03:12 Sodium 141 137 Potassium 3.4 L 3.4 L Chloride 103 97 L Carbon Dioxide 23 24 BUN 25 H 15 Creatinine 0.8 0.7 Glucose 99 100 Calcium 8.8 9.4 Cardiac Enzymes 09/20/22 09/21/22 Range/Units 03:38 03:12 NT-Pro-B Natriuret Pep 03791 H 54846 H (0-125) pg/mL Liver Function 09/20/22 09/21/22 09/21/22 Range/Units 03:38 03:12 03:12 Total Bilirubin 1.0 1.4 H Cancelled (0.15-1.2) mg/dL Direct Bilirubin 0.40 H (0.00-0.30) mg/dL GGT 139 H (5-36) U/L AST 32 31 (0-32) U/L ALT 18 16 (0-33) U/L Alkaline Phosphatase 135 H 157 H (35-105) U/L Albumin 3.7 3.6 (3.5-5.2) g/dL Coags 09/20/22 09/21/22 03:38 03:12 C-Reactive Protein 160.6 H 166.1 H Microbiology 09/19/22 11:15 Catheter Tip Culture - Final Cvp 09/17/22 12:50 Blood Culture - Preliminary Blood Staphylococcus epidermidis 09/18/22 09:08 Gram Stain - Final Sputum - Expectorated Sputum Sputum Culture - Final 09/19/22 03:15 Blood Culture - Preliminary Blood NEGATIVE TO DATE 09/19/22 03:15 Blood Culture - Preliminary Blood NEGATIVE TO DATE 09/20/22 00:35 C.difficile Toxin B Gene (PCR) - Final Stool Routine Collection Cardiac Studies: Echocardiogram 02/08/22 Echocardiogram Limited Views 09/18/22 Sestamibi Stress Test (Cardiology) 08/12
--- NOTE | 2022-09-21 12:37 | PM.PN ---
Subjective Subjective: Patient is doing better. Patient had OLVIN today that does not show evidence of endocarditis. Vitals/I&O/Wt Last Vital Signs Temp 97.4 F L 09/21/22 12:24 Pulse 70 09/21/22 12:24 Resp 18 09/21/22 12:24 BP 127/66 09/21/22 12:24 Pulse Ox 96 09/21/22 12:24 O2 Del Method Room Air 09/21/22 12:24 O2 Flow Rate 2 09/19/22 17:13 09/20/22 09/21/22 09/21/22 22:59 06:59 14:59 Intake Total 1368 / 1658 550 / 550 Output Total 350 / 3950 650 / 4600 Balance 1018 / -2292 -650 / -2942 550 / 550 Physical Exam Narrative: GENERAL: Patient is alert, awake and oriented x3. [] NECK: No jugular vein distension. [] HEENT: No cyanosis. No icterus. No pallor. [] HEART: Regular S1 and S2. No murmur, rub or gallop. [] LUNGS: Clear to auscultate bilaterally. [] CENTRAL NERVOUS SYSTEM: Grossly nonfocal. [] EXTREMITIES: Lower extremities with no edema Urinary Catheter Management: Estes: Cath Placed During This Visit: yes Reason for Continuing Indwelling Catheter: Acute Urinary Retention or Obstruction Urinary Catheter Date of Insertion: 09/17/22 Urinary Catheter Time of Insertion: 17:20 Data 09/22/22 05:05 09/21/22 03:12 Micro: Microbiology 09/19/22 11:15 Catheter Tip Culture - Final Cvp 09/17/22 12:50 Blood Culture - Preliminary Blood Staphylococcus epidermidis 09/18/22 09:08 Gram Stain - Final Sputum - Expectorated Sputum Sputum Culture - Final 09/19/22 03:15 Blood Culture - Preliminary Blood NEGATIVE TO DATE 09/19/22 03:15 Blood Culture - Preliminary Blood NEGATIVE TO DATE A&P Assessment and plan (1) Systolic CHF: (2) Staphylococcus epidermidis bacteremia: (3) 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: (4) Pulmonary embolism: (5) HTN (hypertension): Qualifiers: Hypertension type: primary hypertension Qualified Code(s): I10 - Essential (primary) hypertension (6) Cardiac 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 therapy 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 (ENVIRONMENTAL COMPLIANCE TECHNICIAN-D) in place: Plan OLVIN does not show evidence of endocarditis. However can not completely rule out endocarditis. ID recommendations are important regarding when generator can be replaced.Repeat culture is negative so far. Antibiotic therapy per primary team. Thank you for involving us with care of this patient. We will continue to follow. Please call with questions Attestations Medical Necessity Statement*: Care expected to cross 2 midnights. Coding Level of Care Code Acute Code for g Fwd Diagnoses Systolic CHF I50.20 Staphylococcus epidermidis bacteremia R78.81; B95.7 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 Z45.010 Pulmonary embolism I26.99 HTN (hypertension) I10 Hypertension type: primary hypertension Cardiac 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 therapy 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 (ENVIRONMENTAL COMPLIANCE TECHNICIAN-D) in place Z95.810
[2022-09-21] MEDS: morphine 4 mg/mL SDV 1 mL 1 MG IVP ×2 (13:08→18:38)
[2022-09-21] MEDS: diphenhydrAMINE 25 mg Capsule PO ×2 (13:08→18:41)
--- NOTE | 2022-09-21 13:26 | PC.PHAR ---
PHARMACY TO DOSE - VANCOMYCIN With the patient's increase from baseline CrCl, the new calculated dose should be 1250mg every 12 hours versus the Q24h. The new predicted peak is 35.4 mcg/ml and a trough of 16.21 mcg/ml. We will draw a new trough prior to the 4th dose and continue to monitor the patient's function. Please let us know if there is anything else we can do for you. Thanks, Julio Cesar Sosa, Pharm.D
--- NOTE | 2022-09-21 13:39 | PC.OT ---
OT tx attempted earlier today and pt off the floor getting OLVIN. OT tx attempted again at this time, and pt states not today I've got the gout in my left foot . Pt apologizes for not participating and reports maybe tomorrow . Pt left in bed eating a sandwich visiting with family.
--- NOTE | 2022-09-21 14:02 | PC.NURSE ---
Pt's BP 188/96. Messaged Dr. Loya to inform him and see if he would like her to receive anything to bring it down.
[2022-09-21] MEDS: vancomycin 1,250 MG/250 ML PIGGYBACK 250 MG IV (14:49)
--- NOTE | 2022-09-21 14:50 | ANE.PACU2 ---
Inpatient post-anesthesia follow up: Airway intact: Yes Vital signs: Temperature 97.4 F Pulse Rate 70 Respiratory Rate 23 Blood Pressure 127/66 Pulse Oximetry 95 Oxygen Delivery Me thod Room Air Oxygen Flow Rate 2 Fraction of Inspir ed Oxygen Hydration adequate: Yes Nausea and vomiting: No Pain level: 1 Mental status: Baseline
--- NOTE | 2022-09-21 14:58 | PM.PN ---
Subjective Subjective: Patient was seen this morning, she denies any shortness of breath, she is awaiting her transesophageal echocardiogram, I spoke to infectious disease last night, consulting for Staph epidermidis bacteremia Vitals/I&O/Wt Last Vital Signs Temp 97.4 F L 09/21/22 12:24 Pulse 70 09/21/22 12:24 Resp 23 H 09/21/22 13:08 BP 127/66 09/21/22 12:24 Pulse Ox 95 09/21/22 13:08 O2 Del Method Room Air 09/21/22 12:24 O2 Flow Rate 2 09/19/22 17:13 09/20/22 09/21/22 09/21/22 22:59 06:59 14:59 Intake Total 1368 / 1658 600 / 600 Output Total 350 / 3950 650 / 4600 200 / 200 Balance 1018 / -2292 -650 / -2942 400 / 400 Physical Exam Const: COMMON NORMALS: no acute distress and patient oriented x3 Resp: COMMON NORMALS: normal respiratory effort, No retractions, No use of accessory muscles and clear to auscultation bilaterally AUSCULTATION: clear to auscultation bilaterally Cardio: COMMON NORMALS: regular rate, regular rhythm, S1 normal heart sound present and S2 normal heart sound present RATE: regular rate RHYTHM: regular rhythm HEART SOUNDS: S1 normal heart sound present and S2 normal heart sound present GI: COMMON NORMALS: Normal to inspection, nondistended, normoactive bowel sounds present and non-tender Extremity: COMMON NORMALS: no pedal edema Neuro: COMMON NORMALS: patient oriented x3 Psych: COMMON NORMALS: mental status grossly normal Urinary Catheter Management: Estes: Cath Placed During This Visit: yes Reason for Continuing Indwelling Catheter: Acute Urinary Retention or Obstruction Urinary Catheter Date of Insertion: 09/17/22 Urinary Catheter Time of Insertion: 17:20 Data 09/21/22 03:12 09/21/22 03:12 Micro: Microbiology 09/17/22 12:50 Blood Culture - Final Blood Staphylococcus epidermidis 09/19/22 11:15 Catheter Tip Culture - Final Cvp 09/18/22 09:08 Gram Stain - Final Sputum - Expectorated Sputum Sputum Culture - Final A&P Assessment and plan (1) Right internal carotid artery aneurysm: (2) HTN (hypertension): Qualifiers: Hypertension type: primary hypertension Qualified Code(s): I10 - Essential (primary) hypertension (3) BASIA (obstructive sleep apnea): (4) Cardiomyopathy: Qualifiers: Cardiomyopathy type: ischemic Qualified Code(s): I25.5 - Ischemic cardiomyopathy (5) Renal artery stenosis: (6) PAD (peripheral artery disease): (7) Vertebrobasilar insufficiency: (8) Status post aorto-coronary artery bypass graft: (9) Chronic diarrhea: (10) CKD (chronic kidney disease) stage 3, GFR 30-59 ml/min: Qualifiers: Chronic kidney disease stage 3 subtype: stage 3b (GFR 30-44) Qualified Code(s): N18.32 - Chronic kidney disease, stage 3b (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: (12) Septic shock: (13) Pneumonia: (14) GI bleed: (15) Acute anemia: (16) 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: (17) Staphylococcus epidermidis bacteremia: (18) NSTEMI (non-ST elevated myocardial infarction): (19) Acute exacerbation of CHF (congestive heart failure): (20) Systolic CHF: Plan Septic shock related to pneumonia, Staph epidermidis bacteremia Currently off Levophed Status post sepsis bolus Resolving White count, tachypnea and tachycardia with high lactic acid endorgan damage acute on chronic kidney disease Continue vancomycin, and cefepime Staph epidermidis bacteremia, 2 out of 4 blood cultures positive, penicillin resistant -Continue vancomycin -CRtD device in place, placed 3 years ago -Does have cardiac stents -Does have a right central line in place, which was removed, cultured tip so far negative -Source unclear s 2 out of 4 blood cultures are positive -Cardiology consulted for transesophageal echocardiogram today, to evaluate for endocarditis, evaluate pacemaker leads -She likely will need 6 weeks of IV antibiotics, infectious disease consulted -We will have to discuss with infectious disease if OLVIN is normal, she is going to need her pacemaker generator replaced or an entirely new pacemaker system, based upon recommendations, will have to discuss with electrophysiology -Repeat blood cultures so far negative Pacemaker at the end of battery life -SIMULATION TECH device placed due to ischemic cardiomyopathy -Pacemaker interrogation shows battery is nearly out of life -Spoke to cardiology, generator replacement versus entire pacemaker placement, depending on discussion with infectious disease, electrophysiology -We will continue to monitor if she does develop bradycardia, or AV block then she might require temporary pacing -We will continue cardiac monitoring Acute anemia, hemoglobin stable at 10.3 -Evidence of iron deficiency anemia, with iron levels at 12 -Possibly secondary to sepsis, possible slow GI bleed -Protonix, Carafate -Monitor hemoglobin closely -Hold off on IV Venofer infusions due to 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 assistant secretary concerns for infection elevated white count Bilateral PE, no significant elevation of troponin, right-sided pleuritic chest pain, currently on heparin drip, transition to oral Eliquis -We will monitor hemoglobin as above -Venous ultrasound negative for DVT -Cardiac echo, as below -If she develops further anemia she might require IVC filter placement Acute hypoxia secondary to PE and pneumonia, resolving DuoNeb treatment To decrease work of breathing she can be put on BiPAP overnight Systolic CHF exacerbation, has elevated BNP, complaints of shortness of breath, -We will diurese again today, 1 dose of Lasix with potassium -Monitor urine output NSTEMI -Likely type II NSTEMI related to supply/demand ischemia and related to sepsis, pneumonia, pulmonary emboli -However cannot rule out cardiac etiology Cardiac echo- -?Diffuse hypokinesia left ventricular ejection fraction of 41%. ?Mildly dilated LV cavityModerately increased left atrial size. ? Mildly increased right atrial size. ?Thickened mitral valve. Trace to mild mitral valve ?regurgitation. ?Thickened aortic valve. ?Mild pulmonary valve regurgitation. ?Mildly dilated IVC. ?There is no pericardial effusion. ?There are no intracardiac masses. ?Compared to the study from 02/08/2022, there is a drop in the LV ?systolic function.? In 2019, the LV ejection fraction was around ?25%. Lactic acidosis, resolved Hypomagnesemia, will replace History of CABG, stent placed in SVG last year, continue dual antiplatelet therapy patient has not missed of any of her medications -Continue Plavix -On Eliquis -Due to anemia hold aspirin Acute on chronic kidney disease stage III: Related to sepsis, antibiotics to be renally dosed History of chronic dizziness related to vertebral basilar insufficiency History of atrial fibrillation -Seen on pacemaker interrogation -Currently rate controlled -Beta-srikanth on hold due to hypotension, septic shock -Monitor -Anticoagulation above History of ablation Goals of care discussed with the patient and her they do not want any chest compressions, defibrillation or intubation in case of any cardiac or respiratory arrest okay with medical therapy and BiPAP, will change CODE STATUS to DNR/DNI Plan for today monitor hemoglobin closely, repeat blood cultures, monitor for fevers, up out of bed, hold off on Lasix, transesophageal echocardiogram Reviewed blood work, spoke to nursing staff, infectious disease, cardiology Attestations Medical Necessity Statement*: Patient requires hospitalization for pneumonia, PE, now with Staph epidermidis bacteremia Diagnoses Right internal carotid artery aneurysm I67.1 HTN (hypertension) I10 Hypertension type: primary hypertension BASIA (obstructive sleep apnea) G47.33 Cardiomyopathy I25.5 Cardiomyopathy type: ischemic Renal artery stenosis I70.1 PAD (peripheral artery disease) I73.9 Vertebrobasilar insufficiency G45.0 Status post aorto-coronary artery bypass graft Z95.1 Chronic diarrhea K52.9 CKD (chronic kidney disease) stage 3, GFR 30-59 ml/min N18.32 Chronic kidney disease stage 3 subtype: stage 3b (GFR 30-44) Chronic tophaceous gout of both hands [id number] Septic shock A41.9; R65.21 Pneumonia J18.9 GI bleed K92.2 Acute anemia D64.9 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
[2022-09-21] MEDS: metoprolol tartrate 25 mg Tablet 12.5 MG PO (15:05)
[2022-09-22] VITALS (69 sets, daily range): BP systolic 148–175; BP diastolic 74–93; PULSE 70–75; RESP 16–34; TEMP 37–37.7; O2SAT 90–98
[2022-09-22] MEDS: morphine 4 mg/mL SDV 1 mL 1 MG IVP ×2 (00:02→08:13)
[2022-09-22] MEDS: diphenhydrAMINE 25 mg Capsule PO ×3 (00:03→21:07)
--- NOTE | 2022-09-22 02:01 | PC.PHAR ---
Vancomycin Trough scheduled for 09/23 @ 0100, please hold 0200 dose until drawn. Thank you, Mari Rausch [facility]
[2022-09-22] MEDS: vancomycin 1,250 MG/250 ML PIGGYBACK 250 MG IV ×2 (02:56→15:29)
[2022-09-22] MEDS: metoprolol tartrate 25 mg Tablet 12.5 MG PO ×2 (02:57→15:28)
--- NOTE | 2022-09-22 05:00 | P.CONIM_ITS ---
Providers/Reason For Consult Consulting Physician/Specialty*: Cathleen Marquis MD/ Infectious Disease Reason for Consult*: CoNS bacteremia Requesting Physician: Ish Loya MD Attending Physician: Ish Loya MD Primary Care Provider: Derek Dowd DO History of Present Illness History of Present Illness Essie Alejandre is a 72 year old female with a past medical history of CAD status post CABG, A-fib, renal artery stenosis, ischemic cardiomyopathy, heart failure, AICD in place. She is currently admitted here since September 17, 2022 after presenting here with diarrhea lethargy and generalized weakness. Symptoms of been ongoing for about 4 weeks. She was admitted to the ICU due to septic shock thought to be related to pneumonia. She required pressor support upon admission. She was also found to have bilateral PEs. Her blood culture eventually returned positive for Staph epidermidis. Her AICD device is out of battery and is needing replacement soon. Central line placed upon admission was removed on September 19, 2022. TTE showed diffuse hypokinesia of the. Overall, LVEF of 41%. A OLVIN has been subsequently performed September 21 which did not show any obvious vegetations. Tmax during course of admission 99.8 Fahrenheit today. Previously afebrile. Review of Systems General: Reports: 10 or more systems reviewed and unremarkable except in HPI and below Const: Denies: fever(s), chills or body aches Eyes: Denies: change in vision, blurry vision or photophobia ENMT: Reports: hoarseness; Denies: throat pain, enlarged tonsils, odynophagia or nasal congestion Card: Denies: chest pain, palpitations, irregular heart rhythm, edema, swelling of feet/ankles, lightheadedness, pre-syncope, dyspnea on exertion or orthopnea Resp: Denies: dyspnea, productive cough, non-productive cough, wheezing, stridor, pain on inspiration, change in phlegm color, hemoptysis or chest congestion GI: Denies: abdominal pain, nausea, vomiting, hematemesis, coffee ground emesis, dysphagia, heartburn, diarrhea, constipation, GI cramping, change in stool character, hematochezia or melena : Denies: flank pain, difficulty voiding, dysuria, urinary frequency, urinary urgency, urinary hesitancy or hematuria Musc: Denies: neck pain, back pain, extremity pain, joint swelling, joint warmth or deformity Neuro: Denies: headache(s), numbness in extremities, weakness in extremities, sensory changes, difficulty walking, frequent falls, dizziness, vertigo, behavioral changes, Slurred speech present or seizure-like activity Psych: Denies: anxiety, depression, suicidal ideation or homicidal ideation Endo: Denies: polyuria, polydipsia, tired all the time, cold intolerance or hot flashes Jerardo/Lymph: Denies: easy bruising or easy bleeding Medications/Allergies Home Medications Medication Instructions Recorded Confirmed Last Taken Type multivitamin 1 tab PO QAM 06/08/21 09/17/22 09/17/22 History sour alonso extract 1,000 mg 1,000 mg PO BEDTIME 06/23/21 09/17/22 09/16/22 History capsule (Tart Alonso Extract) alprazolam 0.5 mg tablet 0.5 mg PO DAILY PRN Anxiety 02/07/22 09/17/22 Unknown History isosorbide mononitrate 60 mg 60 mg PO QAM 03/24/22 09/17/22 09/17/22 History tablet,extended release 24 hr metoprolol tartrate 25 mg tablet 25 mg PO BID 03/24/22 09/17/22 09/17/22 History omega-3 fatty acids 1,000 mg 1,000 mg PO BID 03/24/22 09/17/22 09/17/22 History capsule potassium chloride 20 mEq 20 meq PO QAM 03/24/22 09/17/22 09/17/22 History tablet,extended release allopurinol 100 mg tablet 400 mg PO QAM #30 tabs 03/27/22 09/17/22 09/17/22 Rx aspirin 81 mg tablet,delayed 81 mg PO BEDTIME #120 tabs 03/27/22 09/17/22 09/16/22 Rx release (Adult Aspirin Regimen) atorvastatin 40 mg tablet 40 mg PO QAM #120 tabs 03/27/22 09/17/22 03/29/22 Rx furosemide 40 mg tablet 40 mg PO QAM #30 tabs 03/27/22 09/17/22 09/16/22 Rx tizanidine 4 mg capsule 4 mg PO Q6H PRN muscle spasticity 03/29/22 09/17/22 Unknown Rx #20 caps clopidogrel 75 mg tablet 75 mg PO BEDTIME #90 tabs 05/28/22 09/17/22 09/16/22 Rx pantoprazole 40 mg tablet,delayed 40 mg PO BID #60 tabs 07/14/22 09/17/22 09/17/22 Rx release pregabalin 75 mg capsule (Lyrica) 75 mg PO BID #60 caps 07/15/22 09/17/22 09/17/22 Rx albuterol sulfate 90 mcg/actuation 2 puff inhalation QID PRN 07/28/22 09/17/22 09/17/22 Rx aerosol inhaler Shortness Of Breath #6.7 grams nitroglycerin 0.4 mg sublingual 0.4 mg sublingual Q5M PRN Chest 08/24/22 09/17/22 Unknown Rx tablet (Nitrostat) Pain #14 tabs sertraline 100 mg tablet 100 mg PO QAM #90 tabs 08/24/22 09/17/22 09/17/22 Rx tramadol 100 mg tablet 50 mg PO DAILY PRN Pain #30 tabs 08/24/22 09/17/22 Unknown Rx cefuroxime axetil 500 mg tablet 500 mg PO BID PRN RUTIs #30 tabs 09/14/22 09/17/22 Unknown Rx acetaminophen 650 mg 1,300 mg PO BID 09/17/22 09/17/22 09/17/22 History tablet,extended release (Tylenol Arthritis Pain) diclofenac sodium 75 mg 75 mg PO Q12H PRN Pain 09/17/22 09/17/22 Unknown History tablet,delayed release lisinopril 20 mg tablet 20 mg PO BEDTIME 09/17/22 09/17/22 09/16/22 History magnesium chloride 71.5 mg 71.5 mg PO BID 09/17/22 09/17/22 09/17/22 History (magnesium chloride) tablet,delayed release (Slow-Mag) Allergies Allergy/AdvReac Type Severity Reaction Status Date / Time levofloxacin [From Levaquin] Allergy ALGY-Redness Verified 09/17/22 19:20 of Skin Sulfa (Sulfonamide Allergy hives Verified 09/17/22 13:54 Antibiotics) adhesive tape AdvReac Mild Unknown Verified 09/17/22 13:54 Current Medications Generic Name Dose Route Start Last Admin Trade Name Freq PRN Reason Stop Dose Admin Acetaminophen 650 mg 09/17/22 18:18 09/21/22 00:30 Acetaminophen 325 Mg Tablet PO 650 mg BID PRN Administration pain Allopurinol 400 mg 09/18/22 06:00 09/21/22 06:13 Allopurinol 100 Mg Tablet PO 400 mg QAM JEREMY Administration Apixaban 10 mg 09/18/22 09:00 09/20/22 21:36 Apixaban 5 Mg Tablet PO 10 mg BID@0900,2100 JEREMY Administration Atorvastatin Calcium 40 mg 09/18/22 06:00 09/21/22 06:12 Atorvastatin 40 Mg Tablet PO 40 mg QAM JEREMY Administration Clopidogrel Bisulfate 75 mg 09/17/22 21:00 09/20/22 21:36 Clopidogrel 75 Mg Tablet PO 75 mg BEDTIME JEREMY Administration Diphenhydramine HCl 25 mg 09/19/22 08:36 09/20/22 21:36 Diphenhydramine 25 Mg Capsule PO 25 mg Q4H PRN Administration ITCHING Furosemide 40 mg 09/20/22 09:00 09/20/22 09:09 Furosemide 10 Mg/Ml Sdv 4ml IVP 40 mg ONCE JEREMY Administration Cefepime HCl 2,000 mg/ Sodium 50 mls @ 100 mls/hr 09/17/22 18:30 09/21/22 07:35 Chloride IV Infused Q12H JEREMY Infusion Protocol Vancomycin/PEG/NADA/Lysine/Water 1,250 mg in 250 mls @ 250 mls/hr 09/17/22 19:30 09/20/22 20:11 Vancocin IV Infused Q24H JEREMY Infusion Magnesium Lactate 84 mg 09/18/22 09:00 09/20/22 17:26 Magnesium Lactate 84 Mg Tablet PO 84 mg BID JEREMY Administration Morphine Sulfate 1 mg 09/19/22 00:52 09/19/22 01:00 Morphine 4 Mg/Ml Sdv 1 Ml IVP 1 mg ONCE PRN Administration SEVERE PAIN Pantoprazole Sodium 40 mg 09/18/22 08:30 09/20/22 21:35 Pantoprazole 40 Mg Sdv IVP 40 mg Q12H JEREMY Administration Simethicone 80 mg 09/20/22 16:30 09/20/22 17:26 Simethicone 80 Mg Chew PO 80 mg BID PRN Administration FLATULENCE Sucralfate 1 gm 09/18/22 08:30 09/20/22 21:35 Sucralfate 1 Gm Tablet PO 1 gm Q12H JEREMY Administration PFSH Acute PFSH: Medical History Acute cystitis without hematuria Anticoagulant long-term use Atrial fibrillation Balance disorder Cardiac 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 therapy 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 (RAILROAD TRACK REPAIR SUPERVISOR-D) in place Cardiomyopathy CHF (congestive heart failure) Chronic renal insufficiency, stage II (mild) Chronic tophaceous gout of both hands CKD (chronic kidney disease) stage 3, GFR 30-59 ml/min Cognitive impairment Elevated troponin I level GERD (gastroesophageal reflux disease) Gout HTN (hypertension) Hyperlipidemia Intracranial atherosclerosis Iron deficiency anemia Left bundle branch block MRSA carrier NSTEMI (non-ST elevated myocardial infarction) BASIA (obstructive sleep apnea) PAD (peripheral artery disease) Recurrent UTI Renal artery stenosis Right internal carotid artery aneurysm Sleep apnea Vertebral artery stenosis Vertebrobasilar insufficiency Surgical History H/O cardiac radiofrequency ablation S/P angioplasty with stent S/P appendectomy S/P CABG (coronary artery bypass graft) S/P section S/P hysterectomy S/P ICD (internal cardiac 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) procedure Status post aorto-coronary artery bypass graft Status post tubal ligation Family History Father , AT AGE 65 Hyperlipidemia CAD (coronary artery disease) Hypertension Rheumatoid arthritis Mother , AT AGE 65 Hyperlipidemia CAD (coronary artery disease) Hypertension Diabetes Sister Hyperlipidemia CAD (coronary artery disease) Hypertension Diabetes Other Cancer Social History Smoking and tobacco status: never smoked Second hand smoke exposure: No Alcohol intake: never Desire information about alcohol rehabilitation?: No Counseling given: No Substance/Drug Use: never Desire information about substance/drug rehabilitation?: No Counseling given: No Marital status: Current occupational status: retired Female Reproductive History: Spontaneous abortions: No Vitals/I&O/Wt Last Vital Signs Temp 97.9 F 09/20/22 12:00 Pulse 70 09/21/22 05:52 Resp 22 H 09/21/22 04:00 BP 169/73 09/21/22 04:00 Pulse Ox 96 09/21/22 04:00 O2 Del Method Room Air 09/21/22 04:00 O2 Flow Rate 2 09/19/22 17:13 09/20/22 09/21/22 09/21/22 22:59 06:59 14:59 Intake Total 1368 / 1658 50 / 50 Output Total 350 / 3950 650 / 4600 Balance 1018 / -2292 -650 / -2942 50 / 50 Physical Exam Narrative: General: No acute distress, AO x3 HEENT: PERRLA, pupils bilaterally equal and reactive, pallors not present Chest: Normal vesicular breath sounds, no added sounds, equal good air entry bilaterally CVS: S1-S2 regular, no murmurs, no tachycardia, no gallops, no rubs Abdomen: Soft, nontender, no organomegaly, bowel sounds present Neuro: No focal deficits, no facial deformity, AO x3, power 5/5 in all limbs Urinary Catheter Management: Estes: Cath Placed During This Visit: yes Reason for Continuing Indwelling Catheter: Acute Urinary Retention or Obstruction Urinary Catheter Date of Insertion: 09/17/22 Urinary Catheter Time of Insertion: 17:20 Data 09/22/22 05:05 09/22/22 05:05 Micro: Microbiology 09/17/22 12:50 Blood Culture - Preliminary Blood Staphylococcus epidermidis 09/18/22 09:08 Gram Stain - Final Sputum - Expectorated Sputum Sputum Culture - Final 09/19/22 11:15 Catheter Tip Culture - Preliminary Cvp 09/19/22 03:15 Blood Culture - Preliminary Blood NEGATIVE TO DATE 09/19/22 03:15 Blood Culture - Preliminary Blood NEGATIVE TO DATE 09/20/22 00:35 C.difficile Toxin B Gene (PCR) - Final Stool Routine Collection 09/20/2022: C. difficile PCR negative 09/19/2022: Central line tip culture: No growth to date 09/19/2022: Blood culture negative to date (2 sets) 09/17/2022: Blood culture: 12: 51: Negative to date 09/17/2022: Blood culture:12: 50: 2/4 bottles positive from same set : Staph epidermidis S epidermi M.I.C. RX --------- ------ * Ampicillin >8 R * Ciprofloxacin <=1 S * Clindamycin <=0.5 S * Erythromycin >4 R * Gentamicin <=4 S * Levofloxacin <=1 S * Linezolid 2 S * Oxacillin >2 R * Penicillin >8 R * Rifampin <=1 S * Tetracycline <=4 S * Trimethoprim/Sulfamethoxazole <=0.5/9.5 S Vancomycin 2 S Daptomycin <=0.5 S 09/18/2022: Sputum culture normal mindi 09/17/2022: MRSA nasal screen: Negative September 17, 2022: Bacterial antigen panel negative; urine Legionella antigen negative 09/17/2022: UA: Negative. Other data: 09/18/2022: Bilateral lower extremity duplex: No evidence of DVT September 17, 2022: Few small filling defects in the segmental and subsegmental pulmonary arteries and right upper lobe suspicious for PE. Diffuse hazy groundglass infiltrates throughout the right lung possible pneumonitis. 09/17/2022: COVID PCR: Negative A&P Assessment and plan (1) Staphylococcus epidermidis bacteremia: (2) 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: (3) Pneumonia: Plan 72-year-old female with multiple comorbidities as listed above, chiefly CAD, ischemic cardiomyopathy, A-fib, currently with RAILROAD TRACK REPAIR SUPERVISOR-D device in place which is nearing the end of battery life. Currently admitted since September 17, 2022 after presenting with symptoms of weakness lethargy, found to have pneumonia and PE upon evaluation. Blood cultures on day of admission returned positive for Staph epidermidis 2/4 b ottles in same set Patient with leukocytosis upon admission of 28.8, slowly trending down now to 13 .3. Required pressor support upon admission which has since been discontinued. She has been on treatment with cefepime and vancomycin since admission with clinical improvement. MRSA nasal screen negative, COVID PCR negative, sputum culture and Gram stain negative Recommend to complete 5 to 7 days treatment with cefepime for pneumonia. Source of staph epidermidis bacteremia not clearly evident,cannot rule out contamination. With regards to her Staph epidermidis bacteremia, given underlying RAILROAD TRACK REPAIR SUPERVISOR-D device and upcoming battery change, concern as to endocarditis versus device infection. Patient has had a TTE and subsequently a OLVIN performed yesterday which did not show any evidence of endocarditis (verbal report, unable to find resuts in system currently). Subsequent blood cultures collected on September 19, 2022 remain negative to date. Given that patient has had quick clearance of isolated bacteremia with no further positivity at 24 hours, she is without signs of metastatic infection, endocarditis ruled out with OLVIN, a treatment duration of 14 days is reasonable prior to undergoing procedure for RAILROAD TRACK REPAIR SUPERVISOR-D battery exchange. Coding Level of Care Code Acute Code for [facility] Fwd Diagnoses Staphylococcus epidermidis bacteremia R78.81; B95.7 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 Z45.010 Pneumonia J18.9
[2022-09-22 06:05] LABS: Basophils # 0.1 10^3/uL (0.0-0.1); Basophils % 0.4 %; Eosinophils # 0.2 10^3/uL (0.0-0.8); Eosinophils % 1.7 %; Hematocrit 32.1 % (37.0-47.0); Hemoglobin 9.9 g/dL (11.5-15.3); Lymphocytes # 0.9 10^3/uL (0.8-4.8); Lymphocytes % 6.1 %; Mean Corpuscular HGB Conc 30.8 g/dL (30.0-36.0); Mean Corpuscular Hemoglobin 29.6 pg (28.0-34.0); Mean Corpuscular Volume 95.8 fl (81-99); Mean Platelet Volume 10.6 fL (7.4-10.4); Monocytes % 7.1 %; Neutrophils % 83.2 %; Nucleated Red Blood Cells % 0.1 %; Platelet Count 205 10^3/cmm (130-400); Red Blood Count 3.35 10^6/uL (4.1-5.3); Red Cell Distribution Width 16.7 % (12.1-15.1); White Blood Count 13.8 10^3/uL (4.0-10.0)
[2022-09-22 06:33] LABS: C Reactive Protein 179.3 mg/L (0.0-4.9); Magnesium 1.8 mg/dL (1.7-2.3); Phosphorus 3.3 mg/dL (2.5-4.5)
[2022-09-22 06:44] LABS: NT Pro B Type Natriuretic Pept 13662 pg/mL (0-125)
--- NOTE | 2022-09-22 09:26 | PM.PN ---
Subjective Subjective: Patient is feeling better. No chest pain. Vitals/I&O/Wt Last Vital Signs Temp 98.7 F 09/22/22 08:00 Pulse 70 09/22/22 08:00 Resp 27 H 09/22/22 08:13 BP 170/91 09/22/22 08:00 Pulse Ox 95 09/22/22 08:13 O2 Del Method Room Air 09/22/22 08:00 O2 Flow Rate 2 09/19/22 17:13 09/21/22 09/22/22 09/22/22 22:59 06:59 14:59 Intake Total 450 / 1050 490 / 1540 Output Total 200 / 600 Balance 250 / 450 490 / 940 Physical Exam Narrative: GENERAL: Patient is alert, awake and oriented x3. [] NECK: No jugular vein distension. [] HEENT: No cyanosis. No icterus. No pallor. [] HEART: Regular S1 and S2. No murmur, rub or gallop. [] LUNGS: Clear to auscultate bilaterally. [] CENTRAL NERVOUS SYSTEM: Grossly nonfocal. [] EXTREMITIES: Lower extremities with no edema Urinary Catheter Management: Estes: Cath Placed During This Visit: yes Reason for Continuing Indwelling Catheter: Acute Urinary Retention or Obstruction Urinary Catheter Date of Insertion: 09/17/22 Urinary Catheter Time of Insertion: 17:20 Data 09/23/22 00:48 09/23/22 00:48 Micro: Microbiology 09/17/22 12:50 Blood Culture - Final Blood Staphylococcus epidermidis 09/19/22 11:15 Catheter Tip Culture - Final Cvp A&P Assessment and plan (1) Systolic CHF: (2) Staphylococcus epidermidis bacteremia: (3) 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: (4) Pulmonary embolism: (5) HTN (hypertension): Qualifiers: Hypertension type: primary hypertension Qualified Code(s): I10 - Essential (primary) hypertension (6) Cardiac 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 therapy 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 (ACCREDITATION COORDINATOR-D) in place: Plan Plan for pacemaker generator change out in 2 weeks per ID recommendations. PICC line placed. Can start gentle diuresis once stable. Thank you for involving us with care of this patient. We will continue to follow. Please call with questions Attestations Medical Necessity Statement*: Care expected to cross 2 midnights. Coding Level of Care Code Acute Code for [facility] Fwd Diagnoses Systolic CHF I50.20 Staphylococcus epidermidis bacteremia R78.81; B95.7 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 Z45.010 Pulmonary embolism I26.99 HTN (hypertension) I10 Hypertension type: primary hypertension Cardiac 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 therapy 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 (ACCREDITATION COORDINATOR-D) in place Z95.810
--- NOTE | 2022-09-22 09:36 | PC.SOCIAL ---
IMM Updated Updated pt on IMM. No questions voiced. Provided pt a copy. Initialed, dated, & timed copy in chart.
[2022-09-22] MEDS: TRAMadol 50 mg Tablet PO ×3 (09:52→21:00)
[2022-09-22] MEDS: magnesium lactate 84 mg Tablet PO ×2 (09:53→18:32)
[2022-09-22] MEDS: amlodipine 10 mg Tablet PO (09:53)
[2022-09-22] MEDS: apixaban 5 mg Tablet 10 MG PO ×2 (09:53→20:59)
[2022-09-22 10:27] LABS: Anion Gap 22.8 (5-19); Blood Urea Nitrogen 15 mg/dL (8-23); Calcium 8.8 mg/dL (8.5-10.5); Carbon Dioxide 17 mmol/L (22-29); Chloride 100 mmol/L (98-107); Creatinine Clr Calc Pharmacy 70.5633; Glomerular Filtration Rate 82.7 mL/min (90-130); Glucose 105 mg/dL (65-115); Osmolality Calculated 283 mOsm/kg (285-295); Potassium 3.8 mmol/L (3.5-5.1); Sodium 136 mmol/L (136-145)
[2022-09-22] MEDS: dexamethasone 10 mg/mL INJ IVP (10:52)
--- NOTE | 2022-09-22 11:00 | XR_ITS ---
WS: [id number] PORTABLE CHEST HISTORY: Post PICC insertion COMPARISON: 09/17/2022 Right-sided PICC line is been placed with tip in the distal SVC. RIGHT central line is been removed. Dual lead cardiac pacer is also present. Median sternotomy wires. Bilateral pulmonary opacifications probably due to pulmonary edema without improvement since 3. No pleural effusion or pneumothorax. Cardiac size: Mildly enlarged cardiac silhouette. Mediastinum/Aorta: Mild atherosclerosis aorta. No osseous abnormality seen. XR/XR chest 1V portable [id number] IMPRESSION: 1. Satisfactory placement RIGHT PICC line. 2. No pneumothorax. 3. Mild pulmonary edema.
--- NOTE | 2022-09-22 12:00 | PC.NURSE ---
Single lumen PICC placed to right basilic vein without difficulty. Informed consent obtained from pt spouse per patient request. Mid-arm circumference measured 10 cm from right AC 30 cm. Trimmed cath length 39 cm with 1 cm external length noted. CXR shows cath tip in distal SVC, in good position for use per radiologist. Dressing due to be changed 09/23/22. Report given to bedside nurse
--- NOTE | 2022-09-22 13:09 | PC.OT ---
Occupational therapy treatment was attempted. Patient states, I'm going home tomorrow so I'll just wait and do it (grooming tasks) when I get home. She also states that she cannot get on her feet due to pain from gout.
--- NOTE | 2022-09-22 17:42 | P.PN_ITS ---
Subjective Subjective: Patient was seen this morning, at bedside, had extensive discussion about her bacteremia which has cleared, plans on PICC line placement, and IV vancomycin for 2 weeks, thereafter as per discussion with infectious disease, and discussion with cardiology, generator replacement, patient is agreeable, this morning she is having a gouty flare, she is on allopurinol, she wants the colchicine but I recommended against its use, due to risk of immunocompromise state with her pneumonia and her bacteremia, agreeable to pain control, and steroids, will have PICC line placed today, arranging with IV antibiotics Vitals/I&O/Wt Last Vital Signs Temp 98.7 F 09/22/22 08:00 Pulse 70 09/22/22 08:00 Resp 27 H 09/22/22 08:13 BP 170/91 09/22/22 08:00 Pulse Ox 95 09/22/22 08:13 O2 Del Method Room Air 09/22/22 08:00 O2 Flow Rate 2 09/19/22 17:13 09/22/22 09/22/22 09/22/22 06:59 14:59 22:59 Intake Total 490 / 1540 716 / 716 250 / 966 Output Total 950 / 950 Balance 490 / 940 -234 / -234 250 / 16 Physical Exam Const: COMMON NORMALS: no acute distress and patient oriented x3 Resp: COMMON NORMALS: normal respiratory effort, No retractions, No use of accessory muscles and clear to auscultation bilaterally AUSCULTATION: clear to auscultation bilaterally Cardio: COMMON NORMALS: regular rate, regular rhythm, S1 normal heart sound present and S2 normal heart sound present RATE: regular rate RHYTHM: regular rhythm HEART SOUNDS: S1 normal heart sound present and S2 normal heart sound present GI: COMMON NORMALS: Normal to inspection, nondistended, normoactive bowel sounds present and non-tender Extremity: COMMON NORMALS: no pedal edema Neuro: COMMON NORMALS: patient oriented x3 Psych: COMMON NORMALS: mental status grossly normal Urinary Catheter Management: Estes: Cath Placed During This Visit: yes Reason for Continuing Indwelling Catheter: Acute Urinary Retention or Obstruction Urinary Catheter Date of Insertion: 09/17/22 Urinary Catheter Time of Insertion: 17:20 Data 09/22/22 05:05 09/22/22 05:05 Micro: Microbiology 09/17/22 12:51 Blood Culture - Final Blood NO GROWTH AFTER 5 DAYS 09/17/22 12:50 Blood Culture - Final Blood Staphylococcus epidermidis A&P Assessment and plan (1) Right internal carotid artery aneurysm: (2) HTN (hypertension): Qualifiers: Hypertension type: primary hypertension Qualified Code(s): I10 - Ess ential (primary) hypertension (3) BASIA (obstructive sleep apnea): (4) Cardiomyopathy: Qualifiers: Cardiomyopathy type: ischemic Qualified Code(s): I25.5 - Ischemic cardiomyopathy (5) Renal artery stenosis: (6) PAD (peripheral artery disease): (7) Vertebrobasilar insufficiency: (8) Status post aorto-coronary artery bypass graft: (9) Chronic diarrhea: (10) CKD (chronic kidney disease) stage 3, GFR 30-59 ml/min: Qualifiers: Chronic kidney disease stage 3 subtype: stage 3b (GFR 30-44) Qualified Code(s): N18.32 - Chronic kidney disease, stage 3b (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: (12) Septic shock: (13) Pneumonia: (14) GI bleed: (15) Acute anemia: (16) 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: (17) Staphylococcus epidermidis bacteremia: (18) NSTEMI (non-ST elevated myocardial infarction): (19) Acute exacerbation of CHF (congestive heart failure): (20) Systolic CHF: (21) Gout attack: Plan Septic shock related to pneumonia, Staph epidermidis bacteremia Currently off Levophed Status post sepsis bolus Resolving White count, tachypnea and tachycardia with high lactic acid endorgan damage acute on chronic kidney disease Continue vancomycin, and cefepime Staph epidermidis bacteremia, 2 out of 4 blood cultures positive, penicillin resistant -Continue vancomycin -CRtD device in place, placed 3 years ago -Does have cardiac stents -Does have a right central line in place, which was removed, cultured tip so far negative -Source unclear s 2 out of 4 blood cultures are positive -Cardiology consulted for transesophageal echocardiogram today, to evaluate for endocarditis, evaluate pacemaker leads, negative -She likely will need to to weeks of IV antibiotics, from negative blood culture PICC line to be placed today, likely discharge tomorrow infectious disease consulted -Hopefully can have generator replaced after 2 weeks of IV antibiotics -Repeat blood cultures so far negative Pacemaker at the end of battery life -[employer] device placed due to ischemic cardiomyopathy -Pacemaker interrogation shows battery is nearly out of life -Spoke to cardiology, generator replacement versus entire pacemaker placement, depending on discussion with infectious disease, electrophysiology -Can can have generator replaced after 2 weeks of IV antibiotics -We will continue to monitor if she does develop bradycardia, or AV block then she might require temporary pacing -We will continue cardiac monitoring Acute anemia, hemoglobin stable at 10.3 -Evidence of iron deficiency anemia, with iron levels at 12 -Possibly secondary to sepsis, possible slow GI bleed -Protonix, Carafate -Monitor hemoglobin closely -Hold off on IV Venofer infusions due to 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 for infection elevated white count Bilateral PE, no significant elevation of troponin, right-sided pleuritic chest pain, currently on heparin drip, transition to oral Eliquis -We will monitor hemoglobin as above -Venous ultrasound negative for DVT -Cardiac echo, as below -If she develops further anemia she might require IVC filter placement Acute hypoxia secondary to PE and pneumonia, resolving DuoNeb treatment To decrease work of breathing she can be put on BiPAP overnight Systolic CHF exacerbation, has elevated BNP, complaints of shortness of breath, -We will diurese again today, 1 dose of Lasix with potassium -Monitor urine output NSTEMI -Likely type II NSTEMI related to supply/demand ischemia and related to sepsis, pneumonia, pulmonary emboli -However cannot rule out cardiac etiology Cardiac echo- -?Diffuse hypokinesia left ventricular ejection fraction of 41%. ?Mildly dilated LV cavityModerately increased left atrial size. ? Mildly increased right atrial size. ?Thickened mitral valve. Trace to mild mitral valve ?regurgitation. ?Thickened aortic valve. ?Mild pulmonary valve regurgitation. ?Mildly dilated IVC. ?There is no pericardial effusion. ?There are no intracardiac masses. ?Compared to the study from 02/08/2022, there is a drop in the LV ?systolic function.? In 2019, the LV ejection fraction was around ?25%. Lactic acidosis, resolved Hypomagnesemia, will replace History of CABG, stent placed in SVG last year, continue dual antiplatelet therapy patient has not missed of any of her medications -Continue Plavix -On Eliquis -Due to anemia hold aspirin Acute on chronic kidney disease stage III: Related to sepsis, antibiotics to be renally dosed History of chronic dizziness related to vertebral basilar insufficiency History of atrial fibrillation -Seen on pacemaker interrogation -Currently rate controlled -Beta-srikanth on hold due to hypotension, septic shock -Monitor -Anticoagulation above History of ablation Goals of care discussed with the patient and her they do not want any chest compressions, defibrillation or intubation in case of any cardiac or respiratory arrest okay with medical therapy and BiPAP, will change CODE STATUS to DNR/DNI Plan for today monitor hemoglobin closely, repeat blood cultures, monitor for fevers, up out of bed, for gouty attack, will give her Ultram, steroids, spoke to infectious disease, spoke to cardiology, PICC line to be placed Reviewed blood work, spoke to nursing staff, infectious disease, cardiology Attestations Medical Necessity Statement*: Requires hospitalization for Staph epidermidis bacteremia, now with gouty attack Diagnoses Right internal carotid artery aneurysm I67.1 HTN (hypertension) I10 Hypertension type: primary hypertension BASIA (obstructive sleep apnea) G47.33 Cardiomyopathy I25.5 Cardiomyopathy type: ischemic Renal artery stenosis I70.1 PAD (peripheral artery disease) I73.9 Vertebrobasilar insufficiency G45.0 Status post aorto-coronary artery bypass graft Z95.1 Chronic diarrhea K52.9 CKD (chronic kidney disease) stage 3, GFR 30-59 ml/min N18.32 Chronic kidney disease stage 3 subtype: stage 3b (GFR 30-44) Chronic tophaceous gout of both hands [id number] Septic shock A41.9; R65.21 Pneumonia J18.9 GI bleed K92.2 Acute anemia D64.9 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
[2022-09-22] MEDS: cefepime 2,000 MG in sodium chloride 0.9% (plus) 50 ML 100 MG IV (18:32)
[2022-09-22] MEDS: clopidogrel 75 mg Tablet PO (20:59)
[2022-09-22] MEDS: sucralfate 1 gm Tablet PO (20:59)
[2022-09-23] VITALS (51 sets, daily range): BP systolic 123–159; BP diastolic 61–91; PULSE 69–77; RESP 9–29; TEMP 36.7–36.8; O2SAT 94–98
[2022-09-23 01:23] LABS: Basophils % 0.1 %; Hematocrit 31.7 % (37.0-47.0); Hemoglobin 9.7 g/dL (11.5-15.3); Lymphocytes # 0.5 10^3/uL (0.8-4.8); Lymphocytes % 3.7 %; Mean Corpuscular HGB Conc 30.6 g/dL (30.0-36.0); Mean Corpuscular Hemoglobin 29.2 pg (28.0-34.0); Mean Corpuscular Volume 95.5 fl (81-99); Mean Platelet Volume 10.9 fL (7.4-10.4); Monocytes # 0.4 10^3/uL (0.2-0.9); Monocytes % 2.8 %; Neutrophils # 13.16 10^3/uL (1.8-7.7); Neutrophils % 91.8 %; Nucleated Red Blood Cells % 0 %; Platelet Count 214 10^3/cmm (130-400); Red Blood Count 3.32 10^6/uL (4.1-5.3); Red Cell Distribution Width 16.2 % (12.1-15.1); White Blood Count 14.3 10^3/uL (4.0-10.0)
[2022-09-23 01:37] LABS: Vancomycin Trough 17.5 ug/mL (10-15)
[2022-09-23 01:38] LABS: Magnesium 1.9 mg/dL (1.7-2.3); Phosphorus 2.7 mg/dL (2.5-4.5)
[2022-09-23 01:48] LABS: Anion Gap 16.8 (5-19); Blood Urea Nitrogen 17 mg/dL (8-23); Calcium 9.1 mg/dL (8.5-10.5); Carbon Dioxide 21 mmol/L (22-29); Chloride 98 mmol/L (98-107); Creatinine Clr Calc Pharmacy 70.5633; Glomerular Filtration Rate 98.8 mL/min (90-130); Glucose 152 mg/dL (65-115); NT Pro B Type Natriuretic Pept 17780 pg/mL (0-125); Osmolality Calculated 279 mOsm/kg (285-295); Potassium 3.8 mmol/L (3.5-5.1); Sodium 132 mmol/L (136-145)
[2022-09-23] MEDS: vancomycin 1,250 MG/250 ML PIGGYBACK 166 MG IV (02:42)
[2022-09-23] MEDS: metoprolol tartrate 25 mg Tablet 12.5 MG PO (06:33)
[2022-09-23] MEDS: atorvastatin 40 mg Tablet PO (06:33)
[2022-09-23] MEDS: allopurinol 100 mg Tablet 400 MG PO (06:34)
[2022-09-23] MEDS: cefepime 2,000 MG in sodium chloride 0.9% (plus) 50 ML 100 MG IV (06:34)
[2022-09-23] MEDS: sucralfate 1 gm Tablet PO (07:55)
[2022-09-23] MEDS: TRAMadol 50 mg Tablet PO ×2 (07:55→14:12)
[2022-09-23] MEDS: magnesium lactate 84 mg Tablet PO (08:06)
[2022-09-23] MEDS: apixaban 5 mg Tablet 10 MG PO (08:06)
[2022-09-23] MEDS: amlodipine 10 mg Tablet PO (08:06)
--- NOTE | 2022-09-23 09:10 | PM.PN ---
Subjective Subjective: Patient is doing well. No chest pain. Vitals/I&O/Wt Last Vital Signs Temp 98.0 F 09/23/22 08:00 Pulse 70 09/23/22 08:00 Resp 17 09/23/22 08:00 BP 159/91 09/23/22 08:00 Pulse Ox 96 09/23/22 08:00 O2 Del Method Room Air 09/23/22 03:28 O2 Flow Rate 2 09/19/22 17:13 09/22/22 09/23/22 09/23/22 22:59 06:59 14:59 Intake Total 300 / 1016 300 / 300 Output Total 150 / 1100 325 / 1425 Balance 150 / -84 -325 / -409 300 / 300 Physical Exam Narrative: GENERAL: Patient is alert, awake and oriented x3. [] NECK: No jugular vein distension. [] HEENT: No cyanosis. No icterus. No pallor. [] HEART: Regular S1 and S2. No murmur, rub or gallop. [] LUNGS: Clear to auscultate bilaterally. [] CENTRAL NERVOUS SYSTEM: Grossly nonfocal. [] EXTREMITIES: Lower extremities with no edema Urinary Catheter Management: Estes: Cath Placed During This Visit: yes Reason for Continuing Indwelling Catheter: Acute Urinary Retention or Obstruction Urinary Catheter Date of Insertion: 09/17/22 Urinary Catheter Time of Insertion: 17:20 Data 09/23/22 00:48 09/23/22 00:48 Micro: Microbiology 09/17/22 12:51 Blood Culture - Final Blood NO GROWTH AFTER 5 DAYS A&P Assessment and plan (1) Systolic CHF: (2) Staphylococcus epidermidis bacteremia: (3) 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: (4) Pulmonary embolism: (5) HTN (hypertension): Qualifiers: Hypertension type: primary hypertension Qualified Code(s): I10 - Essential (primary) hypertension (6) Cardiac 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 therapy 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 (FICTION AND NONFICTION WRITER PROSE-D) in place: Plan Patient is doing well.Plan for pacemaker generator change out in 2 weeks per ID recommendations. Thank you for involving us with care of this patient. Patient is stable to be discharged from cardiology follow up. Please call with questions Attestations Medical Necessity Statement*: Care expected to cross 2 midnights. Coding Level of Care Code Acute Code for [facility] Diagnoses Systolic CHF I50.20 Staphylococcus epidermidis bacteremia R78.81; B95.7 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 Z45.010 Pulmonary embolism I26.99 HTN (hypertension) I10 Hypertension type: primary hypertension Cardiac 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 therapy 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 (FICTION AND NONFICTION WRITER PROSE-D) in place Z95.810
[2022-09-23] MEDS: isosorbide mononitrate ER 60 mg Tablet PO (09:23)
[2022-09-23] MEDS: predniSONE 20 mg Tablet PO (09:23)
[2022-09-23] MEDS: FUROsemide 10 mg/mL SDV 4mL 40 MG IVP (09:23)
[2022-09-23] MEDS: pregabalin 75 mg Capsule PO (09:26)
[2022-09-23] MEDS: colchicine 0.6 mg Tablet PO (11:35)
--- NOTE | 2022-09-23 11:57 | P.DS_ITS ---
Discharge Providers Date of Admission: 09/17/22 16:12 Date of Discharge: September 23, 2022 Attending Provider at Admission: Nevaeh Bates MD Attending Provider at Discharge: Ish Loya MD Primary Care Provider: Derek Dowd DO Diagnoses at Discharge Discharge Diagnosis (1) Systolic CHF: Status: Acute (2) Staphylococcus epidermidis bacteremia: Status: Acute (3) 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: Status: Acute (4) Pulmonary embolism: Status: Acute (5) HTN (hypertension): Status: Acute Qualifiers: Hypertension type: primary hypertension Qualified Code(s): I10 - Essential (primary) hypertension (6) Cardiac 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 therapy 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 (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 fib, renal artery stenosis, chronic kidney disease ischemic cardiomyopathy mixed heart failure, left bundle branch block, sleep apnea, went to the EP and had a 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 placed when she failed ablation for her A. fib.? She is not on any anticoagulating agent because of aneurysm? vessels she does have chronic dizziness presented to hospital with chief complaint of?shortness of breath, lethargy and loose stools.? Patient is stating that she could not sleep well last night because she was having diarrhea, she woke up twice, as per the who is at the bedside patient has been fatigued and lethargic for last 3 to 4 weeks, she has been seen by PCP multiple times, no recent use of antibiotics, patient is stating that her pacemaker battery is need to be changed in near future, she has not noticed any fever, vomiting but endorsing nausea.? She only experienced 2 episodes of diarrhea at home.? Around 6:30 AM she started noticing right-sided chest pain which was getting worse and taking deep breaths.? Patient is stating that it is not similar to the last time when she was in the hospital for venous graft stent last year. In the ER she was diagnosed with leukocytosis, acute on chronic kidney disease, small PE, she was hypotensive however awake and alert but lethargic she was put on Levophed after getting a central line in the ER Patient had an long and complicated hospital course But generally she was admitted to [facility] for septic shock secondary to pneumonia, Staph epidermidis bacteremia, bilateral pulmonary embolism, acute anemia, NSTEMI, CHF exacerbation, acute hypoxic respiratory failure, she was managed in the ICU, overall clinically improved, off BiPAP, onto room air, remained afebrile, blood cultures remain negative, discharged home with a close follow-up with primary care provider, follow-up with infectious disease, follow-up with cardiology For her pneumonia, she finished antibiotic treatments as inpatient, currently on room air For her Staph epidermidis bacteremia, 2 out of 4 blood cultures positive, penicillin resistant, infectious disease consulted, central line removed culture was negative, repeat blood cultures were negative, she will be discharged on 9 remaining days of IV vancomycin, 1250 mg twice daily for 9 remaining days, recheck vancomycin trough in 1 week, weekly CBCs and CMP, follow-up with infectious disease in [address] in [address], [employer] infusion company For her pacemaker at the end of battery life, she has a 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 device in place due to ischemic cardiomyopathy, on most recent pacemaker check, on 517, she has 2 months of battery life remaining, after discussion with infectious disease it was recommended to replace generator after at least 2 weeks of IV antibiotic therapy, follow-up with cardiology thereafter for generator replacement She had bilateral pulmonary embolism during hospitalization, initially managed with heparin drip, which was complicated with acute anemia, hemoglobin remained stable, transition to Eliquis, hemoglobin remained stable, no hemodynamic compromise, but hypoxia was, discharged on Eliquis therapy, follow-up with primary care as outpatient Hospitalization was complicated with systolic CHF exacerbation requiring diuretic therapy, discharged on home Lasix Hospitalization was complicated with NSTEMI, EF was 41%, cardiology was consulted, follow-up with cardiology as outpatient Patient had gouty attack managed with home colchicine, steroids, Ultram Physical Exam Const: COMMON NORMALS: no acute distress and patient oriented x3 Resp: COMMON NORMALS: normal respiratory effort, No retractions, No use of accessory muscles and clear to auscultation bilaterally AUSCULTATION: clear to auscultation bilaterally Cardio: COMMON NORMALS: regular rate, regular rhythm, S1 normal heart sound present and S2 normal heart sound present RATE: regular rate RHYTHM: regular rhythm HEART SOUNDS: S1 normal heart sound present and S2 normal heart sound present GI: COMMON NORMALS: Normal to inspection, nondistended, normoactive bowel sounds present and non-tender Extremity: COMMON NORMALS: no pedal edema Neuro: COMMON NORMALS: patient oriented x3 Psych: COMMON NORMALS: mental status grossly normal Urinary Catheter Management: Estes: Cath Placed During This Visit: yes Reason for Continuing Indwelling Catheter: Acute Urinary Retention or Obstruction Urinary Catheter Date of Insertion: 09/17/22 Urinary Catheter Time of Insertion: 17:20 Discharge Data Studies Completed and Pending Completed Studies During Hospitalization Category Date Time Status CTA chest [CT angio chest PE protcl [id number]] Stat Cat Scan 09/17/22 13:05 Completed CXRP [XR chest 1V portable [id number]] Routine Exams 09/22/22 11:00 Completed XR chest 1V portable [id number] Stat Exams 09/17/22 12:28 Completed XR chest 1V portable [id number] Stat Exams 09/17/22 16:28 [place] [id number] Routine Ultrasound 09/18/22 10:00 Completed CV. echo limited [id number] Routine Ultrasound 09/18/22 08:28 Completed Pending at discharge Category Date Time Status Basic Metabolic Panel AM LABS Lab 09/24/22 04:00 Ordered Basic Metabolic Panel AM LABS Lab 09/25/22 04:00 Ordered Blood Culture AM LABS Lab 09/19/22 03:15 Results C Reactive Protein AM LABS Lab 09/24/22 04:00 Ordered Complete Blood Count w/Auto AM LABS Lab 09/24/22 04:00 Ordered Fibrinogen Degradation Product Routine Lab 09/18/22 09:25 Received Magnesium AM LABS Lab 09/24/22 04:00 Ordered NT Pro B Type Natriuretic Pept QAM Lab 09/24/22 06:00 Ordered Phosphorus AM LABS Lab 09/24/22 04:00 Ordered CV. echo transesophageal [id number] Routine Ultrasound 09/21/22 11:30 Taken Radiology Impressions Chest CTA 09/17/22 13:05 IMPRESSION: 1. A few small filling defects in the segmental and subsegmental pulmonary arteries RIGHT upper lobe suspicious for pulmonary embolus. 2. Diffuse hazy groundglass infiltrates throughout the RIGHT lung worse about the hilum and RIGHT upper lobe. Recommend correlation for pneumonia including viral pneumonia. 3. LEFT lung is well aerated. 4. Cardiomegaly. 5. Prior sternotomy. 6. Small moderate esophageal hiatal hernia. Notified Vincent Tate DO at 09/17/2022 3:00 PM. Venous Duplex 09/18/22 10:00 IMPRESSION: No evidence of deep vein thrombosis. Chest X-Ray 09/22/22 11:00 IMPRESSION: 1. Satisfactory placement RIGHT PICC line. 2. No pneumothorax. 3. Mild pulmonary edema. Laboratory Results WBC 14.3 10^3/uL (4.0-10.0) H 09/23/22 00:48 RBC 3.32 10^6/uL (4.1-5.3) L 09/23/22 00:48 Hgb 9.7 g/dL (11.5-15.3) L 09/23/22 00:48 Hct 31.7 % (37.0-47.0) L 09/23/22 00:48 MCV 95.5 fl (81-99) 09/23/22 00:48 MCH 29.2 pg (28.0-34.0) 09/23/22 00:48 MCHC 30.6 g/dL (30.0-36.0) 09/23/22 00:48 RDW 16.2 % (12.1-15.1) H 09/23/22 00:48 Plt Count 214 10^3/cmm (130-400) 09/23/22 00:48 MPV 10.9 fL (7.4-10.4) H 09/23/22 00:48 Neut % (Auto) 91.8 % 09/23/22 00:48 Lymph % (Auto) 3.7 % 09/23/22 00:48 [place] % (Auto) 2.8 % 09/23/22 00:48 Eos % (Auto) 0.0 % 09/23/22 00:48 Baso % (Auto) 0.1 % 09/23/22 00:48 Neut # (Auto) 13.16 10^3/uL (1.8-7.7) H 09/23/22 00:48 Lymph # (Auto) 0.5 10^3/uL (0.8-4.8) L 09/23/22 00:48 [place] # (Auto) 0.4 10^3/uL (0.2-0.9) 09/23/22 00:48 Eos # (Auto) 0.0 10^3/uL (0.0-0.8) 09/23/22 00:48 Baso # (Auto) 0.0 10^3/uL (0.0-0.1) 09/23/22 00:48 Nucleated RBC % (auto) 0 % 09/23/22 00:48 Nucleated RBCs # 0.0 /100WBC 09/23/22 00:48 PT 16.50 SECONDS (12.1-14.9) H 09/18/22 09:08 INR 1.29 (0.8-1.2) H 09/18/22 09:08 APTT 53.3 SECONDS (23.9-36.7) H 09/18/22 09:08 Fibrinogen 539 mg/dL (174-498) H 09/18/22 09:08 Fibrin Degrad Products TNP 09/18/22 09:08 D-Dimer 3.00 ug/mIFEU (0-0.59) H 09/18/22 09:08 Specimen Type Arterial 09/17/22 12:43 Sample Site Radial, right 09/17/22 12:43 ABG pH 7.39 (7.35-7.45) 09/17/22 12:43 ABG pCO2 39.2 mmHg (35-45) 09/17/22 12:43 ABG pO2 62.0 mmHg (80.0-100.0) L 09/17/22 12:43 ABG HCO3 23.5 mmol/L (22-26) 09/17/22 12:43 ABG O2 Saturation 91.1 09/17/22 12:43 ABG Base Excess -1.4 mmol/L (-2.0-2.0) 09/17/22 12:43 Nitesh Test Pos 09/17/22 12:43 A-a O2 Gradient 5.1 mmHg (5-10) 09/17/22 12:43 Hematocrit 34.1 % (37-47) L 09/17/22 12:43 Hgb O2 Saturation 90.4 % (95-100) L 09/17/22 12:43 Carboxyhemoglobin 0.4 %THgb (0.4-20.1) 09/17/22 12:43 Methemoglobin 0.3 % (0.4-1.5) L 09/17/22 12:43 Total Hemoglobin 11.1 g/dL (12-16) L 09/17/22 12:43 Sodium 139.0 mmol/L (131-143) 09/17/22 12:43 Potassium 3.8 mmol/L (3.5-5.0) 09/17/22 12:43 Glucose 103.0 mg/dL (70-115) 09/17/22 12:43 Ionized Calcium 1.2 mmol/L (1.1-1.4) 09/17/22 12:43 O2 Delivery Device Room air 09/17/22 12:43 FiO2 21.0 % 09/17/22 12:43 Sagger Soak ID Cak 09/17/22 12:43 Sodium 132 mmol/L (136-145) L 09/23/22 00:48 Potassium 3.8 mmol/L (3.5-5.1) 09/23/22 00:48 Chloride 98 mmol/L (98-107) 09/23/22 00:48 Carbon Dioxide 21 mmol/L (22-29) L 09/23/22 00:48 Anion Gap 16.8 (5-19) 09/23/22 00:48 BUN 17 mg/dL (8-23) 09/23/22 00:48 Creatinine 0.6 mg/dL (0.5-0.9) 09/23/22 00:48 GFR Calculation 98.8 mL/min (90-130) 09/23/22 00:48 Glucose 152 mg/dL (65-115) H 09/23/22 00:48 Calculated Osmolality 279 mOsm/kg (285-295) L 09/23/22 00:48 Lactic Acid 1.5 mmol/L (0.5-2.2) 09/18/22 03:30 Lactic Acid (Sepsis) 3.1 mmol/L (0.5-2.2) H 09/17/22 15:57 Lactate 0.8 mmol/L (0.5-2.2) 09/20/22 03:38 Calcium 9.1 mg/dL (8.5-10.5) 09/23/22 00:48 Phosphorus 2.7 mg/dL (2.5-4.5) 09/23/22 00:48 Magnesium 1.9 mg/dL (1.7-2.3) 09/23/22 00:48 Iron 12 ug/dL (37-145) L 09/18/22 03:30 TIBC 285 mcg/dl 09/18/22 03:30 % Saturation 4.2 % (20-50) L 09/18/22 03:30 Unsat Iron Binding 273 ug/dL (112-347) 09/18/22 03:30 Ferritin 97 ng/mL (15-150) 09/18/22 03:30 Total Bilirubin 1.4 mg/dL (0.15-1.2) H 09/21/22 03:12 Total Bilirubin Cancelled 09/21/22 03:12 Direct Bilirubin 0.40 mg/dL (0.00-0.30) H 09/21/22 03:12 Indirect Bilirubin Cancelled 09/21/22 03:12 GGT 139 U/L (5-36) H 09/21/22 03:12 AST 31 U/L (0-32) 09/21/22 03:12 ALT 16 U/L (0-33) 09/21/22 03:12 Alkaline Phosphatase 157 U/L (35-105) H 09/21/22 03:12 Creatine Kinase 40 U/L (26-192) 09/17/22 12:50 Troponin T Baseline 28 ng/L (0-10) H 09/17/22 12:50 Troponin T 120 Minute 22.33 ng/L (0-10) H 09/17/22 14:46 Delta Troponin T -5.67 ABS# (0-10) L 09/17/22 14:46 Troponin T Hi Sens 6Hr 21.06 ng/L (0-10) H 09/17/22 18:45 Troponin T Hi Sens 6Hr Delta -6.94 ng/L (0-12) L 09/17/22 18:45 C-Reactive Protein 3.0 mg/L (0.0-4.9) 09/23/22 00:48 NT-Pro-B Natriuret Pep 62716 pg/mL (0-125) H 09/23/22 00:48 Total Protein 7.0 g/dL (6.6-8.7) 09/21/22 03:12 Albumin 3.6 g/dL (3.5-5.2) 09/21/22 03:12 Globulin 3.4 g/dL (1.3-4.6) 09/21/22 03:12 Lipase 20 U/L (13-60) 09/21/22 03:12 Vitamin B12 1347 pg/mL (232-1245) H 09/18/22 03:30 Folate > 20.0 ng/mL (4.8-37.3) 09/18/22 09:08 Procalcitonin 0.89 ng/mL (0-0.5) H 09/21/22 03:12 TSH 1.72 uIU/mL (0.27-4.20) 09/17/22 12:50 Urine Color Yellow (Yellow) 09/17/22 15:00 Urine Appearance Clear (CLEAR) 09/17/22 15:00 Urine pH 5 (5-7) 09/17/22 15:00 Ur Specific [place] 1.010 (1.005-1.030) 09/17/22 15:00 Urine Protein Neg (Negative) 09/17/22 15:00 Urine Glucose (UA) Norm (Normal) 09/17/22 15:00 Urine Ketones Negative (Negative) 09/17/22 15:00 Urine Blood Neg (Negative) 09/17/22 15:00 Urine Nitrate Negative (Negative) 09/17/22 15:00 Urine Bilirubin Neg (Negative) 09/17/22 15:00 Urine Urobilinogen Norm mg/dL (Negative) 09/17/22 15:00 Ur Leukocyte Esterase Negative (Negative) 09/17/22 15:00 Vancomycin Trough 17.5 ug/mL (10-15) H 09/23/22 00:48 Coronavirus 229E (PCR) Not detected (NOT DETECT) 09/17/22 13:11 SARS-CoV-2 (PCR) Not detected (NOT DETECT) 09/17/22 13:11 Vitals Last Vital Signs Temp 98.0 F 09/23/22 08:00 Pulse 72 09/23/22 08:00 Resp 18 09/23/22 08:00 BP 159/91 09/23/22 08:00 Pulse Ox 96 09/23/22 08:00 O2 Del Method Room Air 09/23/22 08:00 O2 Flow Rate 2 09/19/22 17:13 Discharge Plan Discharge Patient Disposition: Home Health Service Condition: Stable Prescriptions: New magnesium L-lactate [Magtab] 84 mg Tablet Extended Release 84 mg PO DAILY 30 Days Qty: 30 0RF vancomycin-diluent combo no.1 1.25 gram/250 mL Piggyback 1,250 mg continuous IV infusion Q12H 9 Days Qty: 4500 0RF prednisone 20 mg Tablet 20 mg PO BID 5 Days Qty: 10 0RF Eliquis 5 mg Tablet See Rx Instructions .ROUTE .COMPLEX Qty: 66 0RF Rx Instructions: 10 mg (2tabs) twice daily for 3 days, followed by 5 mg twice daily thereafter Continued multivitamin Tablet 1 tab PO QAM Tart Alonso Extract 1,000 mg capsule 1,000 mg PO BEDTIME nitroglycerin [Nitrostat] 0.4 mg tablet, sublingual 0.4 mg SUBLINGUAL Q5M PRN (Reason: Chest Pain) Qty: 14 2RF Rx Instructions: do not exceed 3 doses per episode tramadol 100 mg tablet 50 mg PO DAILY PRN (Reason: Pain) Qty: 30 2RF sertraline 100 mg tablet 100 mg PO QAM Qty: 90 3RF albuterol sulfate 90 mcg/actuation HFA aerosol inhaler 2 puff INHALATION QID PRN (Reason: Shortness Of Breath) Qty: 6.7 0RF clopidogrel 75 mg tablet 75 mg PO BEDTIME Qty: 90 3RF pantoprazole 40 mg tablet,delayed release (DR/EC) 40 mg PO BID Qty: 60 3RF pregabalin [Lyrica] 75 mg capsule 75 mg PO BID Qty: 60 3RF alprazolam 0.5 mg Tablet 0.5 mg PO DAILY PRN (Reason: Anxiety) tizanidine 4 mg capsule 4 mg PO Q6H PRN (Reason: muscle spasticity) Qty: 20 0RF Rx Instructions: do not exceed 3 doses per 24 hrs Tylenol Arthritis Pain 650 mg tablet extended release 1,300 mg PO BID Slow-Mag 71.5 mg Tablet,Delayed Release (Dr/Ec) 71.5 mg PO BID lisinopril 20 mg tablet 20 mg PO BEDTIME diclofenac sodium 75 mg tablet,delayed release (DR/EC) 75 mg PO Q12H PRN (Reason: Pain) omega-3 fatty acids 1,000 mg Capsule 1,000 mg PO BID isosorbide mononitrate 60 mg tablet extended release 24 hr 60 mg PO QAM metoprolol tartrate 25 mg tablet 25 mg PO BID potassium chloride 20 mEq tablet extended release 20 meq PO QAM atorvastatin 40 mg tablet 40 mg PO QAM Qty: 120 0RF allopurinol 100 mg tablet 400 mg PO QAM Qty: 30 0RF furosemide 40 mg tablet 40 mg PO QAM Qty: 30 0RF Discontinued cefuroxime axetil 500 mg tablet 500 mg PO BID PRN (Reason: RUTIs) Qty: 30 4RF aspirin [Adult Aspirin Regimen] 81 mg tablet,delayed release (DR/EC) 81 mg PO BEDTIME Qty: 120 0RF Discharge Orders: Discharge Order (Routine); Ordered 09/23/22 Ordered By: Ish Loya Referrals: [facility] [Outside] Derek Dowd DO [Primary Care Provider] - Kel Molina M.D [Physician] - 1 week Cathleen Marquis MD [Hospitalist] - 1 week Discharge Diet: Cardiac Discharge Activity: Resume usual activity Patient Instructions: Opioid Safety Activity Restrictions/Additional Instructions: - I have did surgery on vancomycin 1250 mg twice daily, at 8 AM and 8 PM, starting tomorrow, for 9 remaining days -Recheck vancomycin trough, and creatinine in 1 week, CBC and CMP in 1 week -Follow-up with infectious disease in 1 week -Take blood thinner as prescribed, take Eliquis as prescribed -If you develop bloody or black stools go to emergency room -See your primary care provider in 1 week -For your pacemaker, generator replacement, Discharge Attestations Time Spent in Discharge Care*: greater than 30 min Status at Discharge: Cognitive status at discharge: cognitively intact , B ehavioral status at discharge: cooperative , Quality Metrics Clinical Quality Measures [ Venous Thromboembolism { Contraindication to Overlap Therapy: Overlap treatment not indicated; VTE Discharge Education: Education about anticoagulant therapy/Care Notes given;}] Coding Level of Care Code 86331 Total time (in minutes) for Discharge: 60 Diagnoses Systolic CHF I50.20 Staphylococcus epidermidis bacteremia R78.81; B95.7 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 Z45.010 Pulmonary embolism I26.99 HTN (hypertension) I10 Hypertension type: primary hypertension Cardiac 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 therapy 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 (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
[2022-09-23] MEDS: vancomycin 1,250 MG/250 ML PIGGYBACK 250 MG IV (14:12)
--- NOTE | 2022-09-23 15:16 | PC.NURSE ---
jasbir ashford provided for pt
[2022-09-29 23:49] LABS: Fibrinogen Degradation Product <5 mcg/mL (LESS THAN 5)
== END 2022-09-23 16:22 | disposition home health service (06) | DRG 871 ==
LOC: ER 14:08 → ICU 16:13 → CSU 09-19 16:38
PROVIDERS: Internal Medicine; Admitting Provider Internal Medicine; Emergency Provider Family Medicine; PCP Family Medicine; Visit Provider Family Medicine
PROC: (CPT 93312; principal; 2022-09-21 11:30)
DX: A41.1 Sepsis due to other specified staphylococcus (principal); I21.A1 Myocardial infarction type 2; I26.99 Other pulmonary embolism without acute cor pulmonale; I50.23 Acute on chronic systolic (congestive) heart failure; R65.21 Severe sepsis with septic shock; J18.9 Pneumonia, unspecified organism; N17.9 Acute kidney failure, unspecified; I13.0 Hypertensive heart and chronic kidney disease with heart failure and stage 1 through stage 4 chronic kidney disease, or unspecified chronic kidney disease; G45.0 Vertebro-basilar artery syndrome; E87.20 Acidosis, unspecified; Z95.810 Presence of automatic (implantable) cardiac 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; Z45.010 Encounter for checking and testing of cardiac pacemaker pulse generator [battery]; I25.5 Ischemic cardiomyopathy; N18.32 Chronic kidney disease, stage 3b; M10.9 Gout, unspecified; K21.9 Gastro-esophageal reflux disease without esophagitis; E78.5 Hyperlipidemia, unspecified; I25.2 Old myocardial infarction; G47.33 Obstructive sleep apnea (adult) (pediatric); I73.9 Peripheral vascular disease, unspecified; I25.10 Atherosclerotic heart disease of native coronary artery without angina pectoris; Z95.1 Presence of aortocoronary bypass graft; Z95.5 Presence of coronary angioplasty implant and graft; I48.91 Unspecified atrial fibrillation; I44.7 Left bundle-branch block, unspecified; I67.1 Cerebral aneurysm, nonruptured; I70.1 Atherosclerosis of renal artery; K52.9 Noninfective gastroenteritis and colitis, unspecified; Z20.822 Contact with and (suspected) exposure to COVID-19; Z66 Do not resuscitate; Z82.49 Family history of ischemic heart disease and other diseases of the circulatory system; D50.9 Iron deficiency anemia, unspecified; E83.42 Hypomagnesemia; R09.02 Hypoxemia
CPT/HCPCS: 36415; 36556; 36569; 36592; 36600; 51702; 71045; 71275; 80048; 80051; 80053; 80202; 81003; 82248; 82274; 82330; 82550; 82607; 82728; 82746; 82805; 82977; 83540; 83550; 83605; 83690; 83735; 83880; 84100; 84145; 84443; 84484; 85014; 85018; 85025; 85362; 85378; 85384; 85610; 85730; 86140; 86403; 87040; 87070; 87075; 87077; 87150; 87186; 87205; 87449; 87493; 87635; 87641; 92523; 92610; 93005; 93308; 93312; 93320; 93325; 93970; 94640; 96365; 96366; 96367; 96375; 96376; 97110; 97161; 97165; 97530; 97535; 99213; 99291; 99292; C1751; C9113; J0692; J0713; J1100; J1200; J1644; J1940; J1956; J2270; J2704; J3370; J3475; J3480; J7030; J7060; J7512; Q9967

== ENCOUNTER 2022-09-30 07:30 | Outpatient (CLI) | payer BC, MEDICARE, SELFPAY ==
[2022-09-30 07:53] LABS: Basophils # 0.1 10^3/uL (0.0-0.1); Basophils % 0.4 %; Eosinophils % 0.1 %; Hematocrit 35.5 % (37.0-47.0); Hemoglobin 10.8 g/dL (11.5-15.3); Lymphocytes # 0.8 10^3/uL (0.8-4.8); Lymphocytes % 6.5 %; Mean Corpuscular HGB Conc 30.4 g/dL (30.0-36.0); Mean Corpuscular Hemoglobin 29.7 pg (28.0-34.0); Mean Corpuscular Volume 97.5 fl (81-99); Monocytes # 0.4 10^3/uL (0.2-0.9); Monocytes % 2.8 %; Neutrophils # 10.89 10^3/uL (1.8-7.7); Nucleated Red Blood Cells % 0 %; Platelet Count 358 10^3/cmm (130-400); Red Blood Count 3.64 10^6/uL (4.1-5.3); Red Cell Distribution Width 16.7 % (12.1-15.1); White Blood Count 12.4 10^3/uL (4.0-10.0)
[2022-09-30 08:13] LABS: Alanine Aminotransferase 24 U/L (0-33); Albumin Level 3.9 g/dL (3.5-5.2); Alkaline Phosphatase 189 U/L (35-105); Aspartate Amino Transferase 24 U/L (0-32); Blood Urea Nitrogen 25 mg/dL (8-23); Carbon Dioxide 24 mmol/L (22-29); Chloride 106 mmol/L (98-107); Globulin 3.1 g/dL (1.3-4.6); Glomerular Filtration Rate 70.9 mL/min (90-130); Glucose 122 mg/dL (65-115); Osmolality Calculated 300 mOsm/kg (285-295); Sodium 142 mmol/L (136-145); Total Bilirubin 0.6 mg/dL (0.15-1.2)
[2022-09-30 08:32] LABS: Vancomycin Trough 24.2 ug/mL (10-15)
== END 2022-09-30 07:31 | disposition home or self-care (01) ==
PROVIDERS: PCP Family Medicine; Referring Provider Internal Medicine; Visit Provider Nurse Practitioner Family
DX: I10 Essential (primary) hypertension (principal); Z45.010 Encounter for checking and testing of cardiac pacemaker pulse generator [battery]
CPT/HCPCS: 36415; 80053; 80202; 85025; 99214

== ENCOUNTER → 2022-10-05 15:20 | Outpatient (BNVA) | payer BC, MEDICARE, SELFPAY | PROVIDERS: PCP Family Medicine; Visit Provider Thoracic Surgery (Cardiothoracic Vascular Surgery) | DX: I48.91 Unspecified atrial fibrillation (principal); Z95.0 Presence of cardiac pacemaker | CPT/HCPCS: 99203 ==

== ENCOUNTER 2022-10-07 11:49 | Outpatient (CLI) | payer BC, MEDICARE, SELFPAY ==
[2022-10-07 12:50] LABS: Basophils # 0.1 10^3/uL (0.0-0.1); Basophils % 1.4 %; Eosinophils # 0.3 10^3/uL (0.0-0.8); Eosinophils % 3.3 %; Hematocrit 36.2 % (37.0-47.0); Hemoglobin 10.9 g/dL (11.5-15.3); Lymphocytes # 1.5 10^3/uL (0.8-4.8); Lymphocytes % 17.9 %; Mean Corpuscular HGB Conc 30.1 g/dL (30.0-36.0); Mean Corpuscular Hemoglobin 29.4 pg (28.0-34.0); Mean Corpuscular Volume 97.6 fl (81-99); Mean Platelet Volume 10.2 fL (7.4-10.4); Monocytes # 0.6 10^3/uL (0.2-0.9); Monocytes % 7.2 %; Neutrophils # 5.86 10^3/uL (1.8-7.7); Nucleated Red Blood Cells % 0 %; Platelet Count 210 10^3/cmm (130-400); Red Blood Count 3.71 10^6/uL (4.1-5.3); Red Cell Distribution Width 16.5 % (12.1-15.1); White Blood Count 8.4 10^3/uL (4.0-10.0)
== END 2022-10-07 11:50 | disposition home or self-care (01) ==
LOC: LAB 11:59
PROVIDERS: PCP Family Medicine; Visit Provider Nurse Practitioner Family
DX: R78.81 Bacteremia (principal); B95.7 Other staphylococcus as the cause of diseases classified elsewhere
CPT/HCPCS: 85025

== ENCOUNTER 2022-10-26 05:44 | Day surgery (SDC) | payer BC, MEDICARE, SELFPAY ==
[2022-10-21 10:38] LABS: Add Urine Microscopic? NO; Charge for UA Resulting for Rev
[2022-10-21 10:47] VITALS: BMI 28.9
[2022-10-21 10:49] LABS: Bilirubin Urine Neg (Negative); Blood Urine Neg (Negative); Glucose Urine UA Norm (Normal); Ketones Urine Negative (Negative); Leukocyte Esterase Urine Negative (Negative); Nitrate Urine Negative (Negative); Protein Urine Neg (Negative); Specific Gravity, Urine 1.015 (1.005-1.030); Urine Appearance Clear (CLEAR); Urine Color Light yellow (Yellow); Urobilinogen Urine Norm (Negative); pH Urine 6 (5-7)
[2022-10-21 10:59] LABS: Basophils # 0.1 10^3/uL (0.0-0.1); Basophils % 0.7 %; Eosinophils # 0.2 10^3/uL (0.0-0.8); Eosinophils % 3.3 %; Hematocrit 36.1 % (37.0-47.0); Hemoglobin 11.1 g/dL (11.5-15.3); Lymphocytes % 14.1 %; Mean Corpuscular HGB Conc 30.7 g/dL (30.0-36.0); Mean Corpuscular Hemoglobin 29.3 pg (28.0-34.0); Mean Corpuscular Volume 95.3 fl (81-99); Mean Platelet Volume 9.7 fL (7.4-10.4); Monocytes # 0.5 10^3/uL (0.2-0.9); Monocytes % 6.9 %; Neutrophils # 5.11 10^3/uL (1.8-7.7); Neutrophils % 73.7 %; Nucleated Red Blood Cells % 0 %; Platelet Count 387 10^3/cmm (130-400); Red Blood Count 3.79 10^6/uL (4.1-5.3); Red Cell Distribution Width 15.7 % (12.1-15.1); White Blood Count 6.9 10^3/uL (4.0-10.0)
[2022-10-21 11:14] LABS: Anion Gap 15.1 (5-19); Blood Urea Nitrogen 19 mg/dL (8-23); Calcium 9.7 mg/dL (8.5-10.5); Carbon Dioxide 25 mmol/L (22-29); Chloride 103 mmol/L (98-107); Glomerular Filtration Rate 98.8 mL/min (90-130); Glucose 109 mg/dL (65-115); Osmolality Calculated 291 mOsm/kg (285-295); Potassium 4.1 mmol/L (3.5-5.1); Sodium 139 mmol/L (136-145)
--- NOTE | 2022-10-21 14:32 | ANES.PREANE2 ---
Pre-Anesthetic Assessment Height/Weight: Height 1.65 m Weight 78.925 kg Operation Date: 10/26/22 07:00 Proposed Procedures p Defibillator Generator Exchange 09643 I50.20(Not Applicable) - Rayshawn Kam MD Familial anesthetic complications: none Was Beta Misa taken within 24 hours: Yes Was Clonidine taken within 24 hours: N/A Social No alcohol and No tobacco Exam alert, oriented x 3, clear to auscultation bilaterally and regular rate & rhythm Airway Submandibular: within normal limits Cervical ROM: within normal limits Mallampati: Class II Dentition: chipped Pulmonary Chronic Obstructive Pulmonary Disease and Sleep Apnea CV/HEM Anemia, Arrythmia, Coronary Artery Disease (CABG), Hypertension and Peripheral Vascular Disease Pacemaker CONCLUSIONS ?LV systolic function is mildly reduced with EF of 45 to 50%. ?Pacemaker lead is seen in RV and RA.? No evidence of vegetation. ?Valvular structures not for evidence of vegetation. ?Mild tricuspid regurgitation.? Mild mitral regurgitation. ?Mild to moderate aortic plaque ?Kel Molina MD ?(Electronically Signed) ?Final Date:? ? ? 29 Sep 2022 10:30 Chronic Renal Insufficiency GI Gastroesophageal Reflux Disease Metabolic Hyperlipidemia [facility] [place] Lower Back Pain and Osteoarthritis/DJD Neuropsych Anxiety and Depression Anesthetic Plan ASA status: 3 Anesthesia: Choice Medications/Allergies Home Medications Medication Instructions Recorded Confirmed Last Taken Type multivitamin 1 tab PO QAM 06/08/21 10/21/22 09/17/22 History sour sno extract 1,000 mg 1,000 mg PO BEDTIME 06/23/21 10/21/22 09/16/22 History capsule (Tart Son Extract) alprazolam 0.5 mg tablet 0.5 mg PO DAILY PRN Anxiety 02/07/22 10/21/22 Unknown History isosorbide mononitrate 60 mg 60 mg PO QAM 03/24/22 10/21/22 09/17/22 History tablet,extended release 24 hr metoprolol tartrate 25 mg tablet 25 mg PO BID 03/24/22 10/21/22 09/17/22 History omega-3 fatty acids 1,000 mg 1,000 mg PO BID 03/24/22 10/21/22 09/17/22 History capsule allopurinol 100 mg tablet 400 mg PO QAM #30 tabs 03/27/22 10/21/22 09/17/22 Rx atorvastatin 40 mg tablet 40 mg PO QAM #120 tabs 03/27/22 10/21/22 03/29/22 Rx furosemide 40 mg tablet 40 mg PO QAM #30 tabs 03/27/22 10/21/22 09/16/22 Rx clopidogrel 75 mg tablet 75 mg PO BEDTIME #90 tabs 05/28/22 10/21/22 09/16/22 Rx pantoprazole 40 mg tablet,delayed 40 mg PO BID #60 tabs 07/14/22 10/21/22 09/17/22 Rx release pregabalin 75 mg capsule (Lyrica) 75 mg PO BID #60 caps 07/15/22 10/21/22 09/17/22 Rx albuterol sulfate 90 mcg/actuation 2 puff inhalation QID PRN 07/28/22 10/21/22 09/17/22 Rx aerosol inhaler Shortness Of Breath #6.7 grams nitroglycerin 0.4 mg sublingual 0.4 mg sublingual Q5M PRN Chest 08/24/22 10/21/22 Unknown Rx tablet (Nitrostat) Pain #14 tabs sertraline 100 mg tablet 100 mg PO QAM #90 tabs 08/24/22 10/21/22 09/17/22 Rx tramadol 100 mg tablet 50 mg PO DAILY PRN Pain #30 tabs 08/24/22 10/21/22 Unknown Rx acetaminophen 650 mg 1,300 mg PO BID 09/17/22 10/05/22 09/17/22 History tablet,extended release (Tylenol Arthritis Pain) lisinopril 20 mg tablet 20 mg PO BEDTIME 09/17/22 10/21/22 09/16/22 History magnesium L-lactate 84 mg 84 mg PO DAILY 30 days #30 tabs 09/23/22 10/21/22 Unknown Rx tablet,extended release (Magtab) potassium chloride 20 mEq See Rx Instructions .Route 10/12/22 10/21/22 Unknown Rx tablet,extended release(part/cryst) .COMPLEX #60 tabs Eliquis 5 mg tablet (apixaban) 5 mg PO BID #60 tabs 10/21/22 Unknown Rx Allergies Allergy/AdvReac Type Severity Reaction Status Date / Time levofloxacin [From Levaquin] Allergy ALGY-Redness Verified 10/05/22 15:31 of Skin Sulfa (Sulfonamide Allergy hives Verified 10/05/22 15:31 Antibiotics) adhesive tape AdvReac Mild Unknown Verified 10/05/22 15:31 [facility] Anesthesia Medical History Acute cystitis without hematuria Anticoagulant long-term use Atrial fibrillation Balance disorder Cardiac 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 therapy 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 (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) in 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 Cardiomyopathy CHF (congestive heart failure) Chronic renal insufficiency, stage II (mild) Chronic tophaceous gout of both hands CKD (chronic kidney disease) stage 3, GFR 30-59 ml/min Cognitive impairment Elevated troponin I level GERD (gastroesophageal reflux disease) Gout HTN (hypertension) Hyperlipidemia Intracranial atherosclerosis Iron deficiency anemia Left bundle branch block MRSA carrier NSTEMI (non-ST elevated myocardial infarction) BASIA (obstructive sleep apnea) PAD (peripheral artery disease) Recurrent UTI Renal artery stenosis Right internal carotid artery aneurysm Sleep apnea Vertebral artery stenosis Vertebrobasilar insufficiency Surgical History H/O cardiac radiofrequency ablation S/P angioplasty with stent S/P appendectomy S/P CABG (coronary artery bypass graft) S/P section S/P hysterectomy S/P ICD (internal cardiac 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) procedure Status post aorto-coronary artery bypass graft Status post tubal ligation Family History Father , AT AGE 65 Hyperlipidemia CAD (coronary artery disease) Hypertension Rheumatoid arthritis Mother , AT AGE 65 Hyperlipidemia CAD (coronary artery disease) Hypertension Diabetes Sister Hyperlipidemia CAD (coronary artery disease) Hypertension Diabetes Other Cancer Social History Smoking and tobacco status: never smoked Second hand smoke exposure: No Alcohol intake: never Desire information about alcohol rehabilitation?: No Counseling given: No Substance/Drug Use: never Desire information about substance/drug rehabilitation?: No Counseling given: No Marital status: Current occupational status: retired Female Reproductive History Spontaneous abortions: No Data Anesthesia 10/21/22 10:35 10/21/22 10:35 Short CBC 10/21/22 Range/Units 10:35 WBC 6.9 (4.0-10.0) 10^3/uL Hgb 11.1 L (11.5-15.3) g/dL Hct 36.1 L (37.0-47.0) % MCV 95.3 (81-99) fl Plt Count 387 (130-400) 10^3/cmm Neut % (Auto) 73.7 % Neut # (Auto) 5.11 (1.8-7.7) 10^3/uL BMP 10/21/22 10:35 Sodium 139 Potassium 4.1 Chloride 103 Carbon Dioxide 25 BUN 19 Creatinine 0.6 Glucose 109 Calcium 9.7 Urine 10/21/22 Range/Units 10:30 Urine Color Light yellow (Yellow) Urine Appearance Clear (CLEAR) Urine pH 6 (5-7) Ur Specific [place] 1.015 (1.005-1.030) Urine Protein Neg (Negative) Urine Glucose (UA) Norm (Normal) Urine Ketones Negative (Negative) Urine Nitrate Negative (Negative) Urine Bilirubin Neg (Negative) Ur Leukocyte Esterase Negative (Negative) Cardiac Studies: Echocardiogram 02/08/22 Echocardiogram Limited Views 09/18/22 Transesophageal Echocardiogram 09/21/22 Sestamibi Stress Test (Cardiology) 08/12/22
[2022-10-26 06:23] VITALS: BP 105/71; PULSE 103; RESP 18; TEMP 36.5; O2SAT 95
--- NOTE | 2022-10-26 06:32 | PC.NURSE ---
cancelled per Dr Kam r/t abnormal ekg and chest pain
--- NOTE | 2022-10-26 07:12 | P.HPUD_ITS ---
Surgery/Procedure H&P Update DATE OF PROCEDURE: October 26, 2022 DATE H&P PERFORMED: 10/05/22 H&P UPDATE INFORMATION: I have reviewed H&P completed within last 30 days, I have examined patient prior to procedure and Changes to prior documentation as noted here (Ms. Alejandre reports 2 episodes of chest pain, 1 last night not associated with activity. She described pain in her precordium radiating through to her back. This resolved spontaneously. She states she developed an other episode this morning upon arrival to the hospital. At the time of my exam,.) CHANGES TO PREVIOUS DOCUMENTATION: She is pain-free. Cardiopulmonary exam is unremarkable. I believe, given the elective nature of this procedure, we should consider rescheduling. I have asked her to resume her Plavix and her Eliquis. Given her history of coronary stenting in May as well as her recent history for pulmonary emboli, I feel it prudent that we seek further cardiology evaluation and clearance, particular in light of her recent chest discomfort. EKG today reveals a electronic paced rhythm with no other acute findings. She is pain-free at present. I did discuss options for further evaluations. She states she will return home. I will contact her cardiology service later this morning and they will reach out to her for further instructions. Rationale for delay of surgery was carefully reviewed. She and her are in agreement. PREOP DIAGNOSIS: AICD end of service PLANNED PROCEDURE: Operation Date: 10/26/22 07:00 Proposed Procedures p Defibillator Generator Exchange 29855 I50.20(Not Applicable) - Rayshawn Kam MD
== END 2022-10-26 17:19 | disposition home or self-care (01) ==
LOC: OR 05:47
PROVIDERS: PCP Family Medicine; Visit Provider Thoracic Surgery (Cardiothoracic Vascular Surgery)
DX: Z45.02 Encounter for adjustment and management of automatic implantable cardiac 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 (principal); R07.89 Other chest pain; R94.31 Abnormal electrocardiogram [ECG] [EKG]; Z79.01 Long term (current) use of anticoagulants; Z79.02 Long term (current) use of antithrombotics/antiplatelets; Z95.5 Presence of coronary angioplasty implant and graft; Z86.711 Personal history of pulmonary embolism; Z53.8 Procedure and treatment not carried out for other reasons
CPT/HCPCS: 80048; 81003; 85025

== ENCOUNTER 2022-11-29 08:51 | Outpatient (CLI) | payer BC, MEDICARE, SELFPAY ==
[2022-11-26 09:38] VITALS: BMI 29.6
[2022-11-29] VITALS (33 sets, daily range): BP systolic 77–177; BP diastolic 47–124; PULSE 70–90; RESP 11–27; TEMP 36.8; O2SAT 92–100; BMI 29.6
--- NOTE | 2022-11-29 | XACV_ITS ---
Exam Room: [facility] Ht: 165 cm Wt: 81 kg BSA: 1.95 m2 Gender: Female : 1950 Any Known Allergies: Other Exam Priority: Routine Procedure(s): Procedure Description: Diagnostic procedure Procedure Description: PCI procedure Procedure Description: Venous Graft Catheterization Procedure Description: Drug Eluting Coronary Stent Procedure Description: PTCA Procedure Description: Miscellaneous Procedure Description: ACT Procedure Description: Coronary Angiography Diagnostic Cath Status: Elective Diagnostic Findings * INDICATION: 72-year-old woman with past medical history of CAD who has been having worsening chest pain symptoms. She was planned to undergo replacement of ICD battery however complained of chest pain and the procedure was postponed. She says now is getting daily chest pain symptoms. Plan was for coronary angiogram with possible PCI. * Left Main has no significant disease. * Right Coronary Artery has not injected. Known occluded. * Proximal Circumflex: moderate 50% stenosis, TERELL: 3 flow. OM is occluded. * BYPASS GRAFTS: * MONTE to LAD is not injected. It is known to be atretic. SVG to RCA is patent. Has mild to moderate distal graft disease. SVG to OM/diagonal: It is a jump graft. The graft limb to OM is patent. Graft limb to diagonal artery has critical 95% instent restenosis in prior stent. Proximal to prior stent there is another 70-80% stenosis. * Proximal Left Anterior Descending: mild 40% stenosis, TERELL: 3 flow. * Coronary angiography shows right dominance. PCI Status: Elective PCI Indication: Other Interventional Findings * INDICATION: We engaged SVG to OM/diagonal artery with a JR4 guide catheter. IV heparin was administered to maintain anticoagulation. 0.014 run-through guidewire was used to to cross the stenosis in the diagonal limb of the graft. We dilated the critical ISR of the prior stent with a [id number] compliant balloon. We then placed a [id number] resolute dennis REJI proximal to prior stent. At this time final angiogram was performed that showed excellent stent expansion and no residual stenosis. Guidewire and guide catheter were removed. Patient left the Clerk Of Works in a stable condition.. Conclusions 1. Critical in-stent restenosis of 2. SVG to diagonal artery prior stent. Status post successful revascularization with balloon angioplasty. Severe stenosis of SVG to diagonal artery proximal to prior stent. S/p successful revascularization with 1 stent.. 3. Patient has prior CABG. Recommendations * Continue plavix and eliquis. * High intensity statin therapy. * Outpatient cardiology follow up in 2-4 weeks. * Aggressive risk factor modification. Interventional RX Recommendation: PCI w/o planned CABG Diagnostic RX Recommendation: PCI w/o planned CABG Anticoagulation: Heparin Pressures Phase:Rest AO : 95 / 70 ( 82 ) @ 12:01:00 PM 131 / 62 ( 84 ) @ 12:05:00 PM Clinical Evaluation EBL: 5mL-10mL Procedural Details Pre-Procedure Time Out. Identified patient by full name and date of as verbalized by the patient/guarantor. Does the consent match the physician's order: Yes. Accurate & Complete Informed Consent: Yes. Inpatient/Outpatient History & Physical on Chart: Yes. If H&P is completed, is and addenduem needed: No. Visualize and Verify Site with Patient/Guarantor: N/A. Relevant Radiology Images available: Yes. Pre-op teaching completed and patient verbalized understanding. The risks, benefits, and alternatives of sedation and/or procedure were discussed by physician. The patient agrees to continue. Procedure started. [facility] Clinical Fraility Score: 4: Vulnerable. Clerk Of Works Indications: Worsening Angina. Chest Pain Symptom Assessment: Typical Angina Symptoms. Cardiovascular Instability: No. Correct patient, site and procedure confirmed by cath team. PERRLA. 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 Lungs clear x 5 lobes. Sumaya Dharmesh, RT(R) was relieved by Vianca Cuevas RN, TIP CUTTER as monitoring person. IV Site on Arrival: 20 gauge in the right anticubital. IV Fluids: 0.9% NaCl at KVO. 0 mL infused prior to clay processing labourer. Pre Procedural Pulses: bilateral dorsalis pedis was 1+. Pre Procedural Pulses: bilateral posterior tibial was 1+. Oxygen started at 2liters/min via nasal canula. bilateral groins was prepped with chloroprep then draped in the usual sterile fashion. Physician notified. Patient's family unavailable. Equipment: 6F - Femoral. Cardiac Cath Pack. ACIST Manifold Kit Model BT 2000. Heparinized Saline (2 units/mL), 1000 mL bag. Kit, Micropuncture. Physician arrived. Physician scrubbed in. Immediate Pre-Procedure Time Out. Correct Patient: Yes; Correct Procedure: Yes; Correct Site: Yes; Correct Patient Position: Yes; Correct Supplies: Yes; Dried Flammable Prep: Yes; Blood Products Available: N/A;. Lidocaine 1% infiltrated to the right groin. Arterial access obtained with micropuncture set. Micropuncture wire unable to advance. Wire and needle out. Dr. Molina holding manual pressure. Arterial access obtained with micropuncture set using ultrasound guidance. A 5 grenadian JL4 catheter in over the exchange glidewire. Multiple views taken of left coronary artery. Catheter removed over the exchange J wire. A 5 grenadian JR4 catheter in over the exchange J wire. SVG to RCA visualized. Jump graft to the OM and Diagonal visualized. Catheter removed over the exchange J wire. 6 grenadian JR 4 guide catheter was inserted over the exchange J wire. Runthrough guidewire was advanced through the guide catheter to lesion in the diaganol. Inflation number : 1 A AB TREK 3.00X12 RX BALLOON was prepped and advanced across the SVG-->Diagonal , then inflated to 8 CAMMIE for 0:07 seconds. Inflation number: 2 The AB TREK 3.00X12 RX BALLOON was reinflated across the SVG-->Diagonal, to 12 CAMMIE for 0:16 seconds. Inflation number: 3 The AB TREK 3.00X12 RX BALLOON was reinflated across the SVG-->Diagonal, to 12 CAMMIE for 0:08 seconds. Results checked. Inflation Number : 4 Tin Overton DENNIS 2.75X15 REJI -Lot Number# [id number] was prepped and advanced across the SVG-->Diagonal. The stent was deployed at 12 CAMMIE for 0:20 seconds. Exp 2024-04-02. Wire out. Results checked. Stent balloon out over wire. Guide catheter out over the exchange J wire. ACT drawn. Out of range high. Will redraw. Physician scrubbed out. A Suture was successful obtaining hemostatsis at the Right Femoral artery insertion site. Sheath(s) sutured into position with 2-0 silk and sterile 4x4's and Op-site applied over the site. No oozing or signs and symptoms of hematoma noted. Arterial sheath flushed and connected to tranducer and pressure bag with heparinized saline. Post Procedure: Pulses reassessed and unchanged. PERRLA. 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 No VTE prophylaxis required. Medication's Wasted: Heparin = 1000 Units. Medication's Wasted: Other = Versed 1 mg. Medication's Wasted: Other = Fentanyl 50mcg. Total IV fluids: 70 mL. Post-op diagnosis: POBA of the SVG-->Diagonal for ISR/PCI of the Proxiaml SVG-->Diagonal. Complications: none. Estimated blood loss: 5mL-10mL. Responsiveness - Normal response to verbal stimuli; alert and oriented, PERRLA. Airway - Unaffected, no intervention required; spontaneous ventilation. Circulation: W/N/L, pulses unchanged. ACT drawn. Results 282 seconds. Therapeutic limits - pre-heparin administration 90-150 seconds and monitoring heparin during a vascular procedure >250 seconds. Nausea/Vomiting: No. Procedure completed. Patient transferred by bed to CPRU. Vital chart was stopped. Access Site Site: Right Femoral artery Sheath Size: 6 Fr Hemostasis Method: Suture Hemostasis Success: Successful Procedure Medications Start: 10:48 AM Stop: 10:48 AM Medication: Versed Amount: 1 mg Route: I.V. Start: 10:48 AM Stop: 10:48 AM Medication: Fentanyl Amount: 50 mcg Route: I.V. Start: 11:03 AM Stop: 11:03 AM Medication: 0.9% Saline Amount: 100 ml Route: I.V. drip Start: 11:11 AM Stop: 11:11 AM Medication: Heparin Amount: 8000 units Route: I.V. Start: 11:30 AM Stop: 11:30 AM Medication: Plavix Amount: 300 mg Route: P.O. I, the attending physician, have reviewed and verified all procedure medications. Yes, all medications given per verbal order History/Risk Factors Hypertension: Yes Dyslipidemia: Yes Peripheral Arterial Disease (PAD): Yes Myocardial Infarction (PR): Yes Obesity: Yes Renal Disease: No Tobacco Use: Former Prior Interventions PCI: Yes CABG: Yes Valve Surgery: No Date of PCI: 03/26/2022 Report Signatures Finalized by Kel Molina MD on 12/07/2022 10:05 AM
[2022-11-29 09:56] LABS: Basophils # 0.1 10^3/uL (0.0-0.1); Basophils % 0.8 %; Eosinophils # 0.2 10^3/uL (0.0-0.8); Eosinophils % 2.9 %; Hematocrit 35.4 % (37.0-47.0); Hemoglobin 11.1 g/dL (11.5-15.3); Lymphocytes # 0.9 10^3/uL (0.8-4.8); Lymphocytes % 13.5 %; Mean Corpuscular HGB Conc 31.4 g/dL (30.0-36.0); Mean Corpuscular Hemoglobin 29.8 pg (28.0-34.0); Mean Corpuscular Volume 95.2 fl (81-99); Mean Platelet Volume 10.3 fL (7.4-10.4); Monocytes # 0.5 10^3/uL (0.2-0.9); Monocytes % 7.2 %; Neutrophils # 4.93 10^3/uL (1.8-7.7); Neutrophils % 75.3 %; Nucleated Red Blood Cells % 0 %; Platelet Count 204 10^3/cmm (130-400); Red Blood Count 3.72 10^6/uL (4.1-5.3); Red Cell Distribution Width 16.6 % (12.1-15.1); White Blood Count 6.5 10^3/uL (4.0-10.0)
[2022-11-29] MEDS: diphenhydrAMINE 50 mg Capsule PO (10:00)
[2022-11-29] MEDS: aspirin 325 mg Tablet PO (10:00)
[2022-11-29 10:14] LABS: Anion Gap 14.5 (5-19); Blood Urea Nitrogen 30 mg/dL (8-23); Calcium 9.2 mg/dL (8.5-10.5); Carbon Dioxide 23 mmol/L (22-29); Chloride 102 mmol/L (98-107); Glomerular Filtration Rate 40.5 mL/min (90-130); Glucose 101 mg/dL (65-115); Osmolality Calculated 286 mOsm/kg (285-295); Potassium 4.5 mmol/L (3.5-5.1); Sodium 135 mmol/L (136-145)
[2022-11-29 10:15] LABS: Creatinine Clr Calc Pharmacy 42.2702
--- NOTE | 2022-11-29 10:38 | P.HP_ITS ---
Same Day Surgery H&P Indication for Procedure/HPI DATE OF PROCEDURE: November 29, 2022 CHIEF COMPLAINT/INDICATIONFOR SURGICAL PROCEDURE: Worsening angina PREOP DIAGNOSIS: Worsening angina PLANNED PROCEDURE: Operation Date: 11/29/22 10:[address] [facility] W-W/o [address],I10,E78.2, I48.91,I42.9, I73.9(Left) - Kel Molina M.D Possible percutaneous coronary intervention 72-year-old woman with past medical history of CAD who has been having worsening chest pain symptoms. She was planned to undergo replacement of ICD battery however complained of chest pain and the procedure was postponed. She says now is getting daily chest pain symptoms. Plan was for coronary angiogram with possible PCI. Medications/Allergies* Home Medications Medication Instructions Recorded Confirmed Type multivitamin 1 tab PO QAM 06/08/21 11/26/22 History sour alonso extract 1,000 mg 1,000 mg PO BEDTIME 06/23/21 11/29/22 History capsule (Tart Alonso Extract) alprazolam 0.5 mg tablet 0.5 mg PO DAILY PRN Anxiety 02/07/22 11/26/22 History metoprolol tartrate 25 mg tablet 25 mg PO BID 03/24/22 11/26/22 History omega-3 fatty acids 1,000 mg 1,000 mg PO BID 03/24/22 11/26/22 History capsule acetaminophen 650 mg 1,300 mg PO BID 09/17/22 11/29/22 History tablet,extended release (Tylenol Arthritis Pain) lisinopril 20 mg tablet 20 mg PO BEDTIME 09/17/22 11/26/22 History Allergies/Adverse Reactions Allergy/AdvReac Type Severity Reaction Status Date / Time levofloxacin [From Levaquin] Allergy ALGY-Redness Verified 10/28/22 10:04 of Skin Sulfa (Sulfonamide Allergy hives Verified 10/28/22 10:04 Antibiotics) adhesive tape AdvReac Mild Unknown Verified 10/28/22 10:04 Pertinent History/Comorbid Conditions* Medical History (Updated 10/28/22 @ 14:59 by Ten Mcqueen MD) Acute cystitis without hematuria Anticoagulant long-term use Atrial fibrillation Balance disorder Cardiac 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 therapy 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 (TEENAGE BABYSITTER-D) in place Cardiomyopathy CHF (congestive heart failure) Chronic renal insufficiency, stage II (mild) Chronic tophaceous gout of both hands CKD (chronic kidney disease) stage 3, GFR 30-59 ml/min Cognitive impairment Elevated troponin I level GERD (gastroesophageal reflux disease) Gout HTN (hypertension) Hyperlipidemia Intracranial atherosclerosis Iron deficiency anemia Left bundle branch block MRSA carrier NSTEMI (non-ST elevated myocardial infarction) BASIA (obstructive sleep apnea) PAD (peripheral artery disease) Recurrent UTI Renal artery stenosis Right internal carotid artery aneurysm Sleep apnea Vertebral artery stenosis Vertebrobasilar insufficiency Surgical History (Updated 03/28/22 @ 00:01 by YESSENIA Casey) H/O cardiac radiofrequency ablation S/P angioplasty with stent S/P appendectomy S/P CABG (coronary artery bypass graft) S/P section S/P hysterectomy S/P ICD (internal cardiac 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) procedure Status post aorto-coronary artery bypass graft Status post tubal ligation Family History (Updated 06/28/19 @ 10:31 by Tori Prado RN) Father, AT AGE 65 Mother, AT AGE 65 Rheumatoid arthritis Father Diabetes Mother Sister CAD (coronary artery disease) Father Mother Sister Hyperlipidemia Father Mother Sister Cancer Hypertension Father Mother Sister Social History Smoking and tobacco status: never smoked Second hand smoke exposure: No Alcohol intake: never Desire information about alcohol rehabilitation?: No Counseling given: No Substance/Drug Use: never Desire information about substance/drug rehabilitation?: No Counseling given: No Marital status: Current occupational status: retired Pertinent Exam Findings alert, oriented x 3, clear to auscultation bilaterally and regular rate & rhythm Conscious Sedation Assessment PATIENT ASSESSED PRIOR TO SEDATION, WITH NO CHANGE NOTED: Yes AIRWAY EVAL/ANESTHESIA PLAN: normal airway, ASA III, Local Anesthesia, Risks, benefits & alternatives of sedation and/or procedure discussed and Patient agrees to continue as planned Recommendations Surgery/Procedure today (Left heart cath with possible percutaneous coronary intervention) Coding Level of Care Code Acute Code for Chg Fwd Diagnoses
--- NOTE | 2022-11-29 12:30 | PC.NURSE ---
Around 1230: Transfer orders received. Sheath in place to patient's right groin connected to pressure bag, site clean, dry, et intact, no drainage or hematoma noted. Vitals stable. No c/o pain or discomfort. Report given to FELIPE Manzo. Patient transferred from CPRU to CSU via hospital bed. All belongings sent with patient.
[2022-11-29 15:15] LABS: Partial Thromboplastin Time 145.8 SECONDS (23.9-36.7)
[2022-11-29] MEDS: metoprolol tartrate 25 mg Tablet PO (17:21)
[2022-11-29 17:22] LABS: Partial Thromboplastin Time 50.4 SECONDS (23.9-36.7)
[2022-11-29] MEDS: pregabalin 75 mg Capsule PO (17:22)
[2022-11-29] MEDS: omega-3 fatty acids 1,000 mg Capsule 1000 MG PO (17:22)
[2022-11-29] MEDS: sodium chloride 0.9% 1,000 ML 100 ML IV (17:24)
[2022-11-29] MEDS: clopidogrel 75 mg Tablet PO (20:00)
[2022-11-29] MEDS: ALPRAZolam 0.5 mg Tablet PO (20:00)
--- NOTE | 2022-11-29 20:14 | PC.NURSE ---
Patient is s/p [facility] with right femoral access. Dressing to site remains c,d,i with no s/s of bleeding or hematoma formation. Patient denies pain to site. Right lower extremity remains pink with palpable pulses. Will continue to monitor.
[2022-11-30 00:12] VITALS: BP 112/57; PULSE 70; RESP 17; TEMP 36.6; O2SAT 97
[2022-11-30 04:27] VITALS: BP 133/60; PULSE 70; RESP 18; TEMP 36.8; O2SAT 97
[2022-11-30] MEDS: atorvastatin 40 mg Tablet PO (04:35)
[2022-11-30] MEDS: isosorbide mononitrate ER 60 mg Tablet PO (04:35)
[2022-11-30] MEDS: allopurinol 100 mg Tablet 400 MG PO (04:35)
[2022-11-30] MEDS: FUROsemide 40 mg Tablet PO (04:35)
[2022-11-30] MEDS: sertraline 100 mg Tablet PO (04:35)
[2022-11-30 05:28] VITALS: PULSE 71
[2022-11-30 05:53] LABS: Basophils % 0.7 %; Eosinophils # 0.3 10^3/uL (0.0-0.8); Eosinophils % 4.5 %; Hematocrit 33.2 % (37.0-47.0); Hemoglobin 10.2 g/dL (11.5-15.3); Lymphocytes # 1.2 10^3/uL (0.8-4.8); Lymphocytes % 20.9 %; Mean Corpuscular HGB Conc 30.7 g/dL (30.0-36.0); Mean Corpuscular Hemoglobin 30.1 pg (28.0-34.0); Mean Corpuscular Volume 97.9 fl (81-99); Mean Platelet Volume 10.1 fL (7.4-10.4); Monocytes # 0.5 10^3/uL (0.2-0.9); Neutrophils # 3.75 10^3/uL (1.8-7.7); Neutrophils % 64.7 %; Nucleated Red Blood Cells % 0 %; Platelet Count 188 10^3/cmm (130-400); Red Blood Count 3.39 10^6/uL (4.1-5.3); White Blood Count 5.8 10^3/uL (4.0-10.0)
[2022-11-30 06:11] LABS: Anion Gap 13.6 (5-19); Blood Urea Nitrogen 29 mg/dL (8-23); Calcium 8.9 mg/dL (8.5-10.5); Carbon Dioxide 24 mmol/L (22-29); Chloride 107 mmol/L (98-107); Glomerular Filtration Rate 40.5 mL/min (90-130); Glucose 97 mg/dL (65-115); Osmolality Calculated 296 mOsm/kg (285-295); Potassium 4.6 mmol/L (3.5-5.1); Sodium 140 mmol/L (136-145)
[2022-11-30 06:13] LABS: Creatinine Clr Calc Pharmacy 42.2702
--- NOTE | 2022-11-30 07:03 | P.DS_ITS ---
Discharge Providers Date of Admission: 11/29/2022 Date of Discharge: November 30, 2022 Attending Provider at Admission: Kel Molina MD Attending Provider at Discharge: Kel Molina M.D Primary Care Provider: Derek Dowd DO Reason for Visit Reason for Visit: I10, E78.2, I48.91, I42.9, I73.9 Brief History: 72-year-old woman with past medical history of CAD who has been having worsening chest pain symptoms.? She was planned to undergo replacement of ICD battery however complained of chest pain and the procedure was postponed.? She says now is getting daily chest pain symptoms.? Plan was for coronary angiogram with possible PCI. Hospital Course Hospital Course Coronary angiogram demonstrated critical in-stent restenosis of SVG to diagonal artery and underwent successful revascularization with balloon angioplasty. Patient also had severe 70 to 80% stenosis in SVG to diagonal proximal to the prior stent. She underwent successful revascularization with 1 stent. Patient was observed overnight and then discharged home in a stable condition. She will be sent back to Dr. Kam's office for evaluation regarding ICD battery replacement. Physical Exam Narrative: GENERAL: Patient is alert, awake and oriented x3. [] NECK: No jugular vein distension. [] HEENT: No cyanosis. No icterus. No pallor. [] HEART: Regular S1 and S2. No murmur, rub or gallop. [] LUNGS: Clear to auscultate bilaterally. [] CENTRAL NERVOUS SYSTEM: Grossly nonfocal. [] EXTREMITIES: Lower extremities with no edema Urinary Catheter Management: Estes: Cath Placed During This Visit: no Discharge Data Studies Completed and Pending Pending at discharge Category Date Time Status CLERICAL AIDE request for service Routine Exams 11/29/22 10:36 Taken Laboratory Results WBC 5.8 10^3/uL (4.0-10.0) 11/30/22 04:57 RBC 3.39 10^6/uL (4.1-5.3) L 11/30/22 04:57 Hgb 10.2 g/dL (11.5-15.3) L 11/30/22 04:57 Hct 33.2 % (37.0-47.0) L 11/30/22 04:57 MCV 97.9 fl (81-99) 11/30/22 04:57 MCH 30.1 pg (28.0-34.0) 11/30/22 04:57 MCHC 30.7 g/dL (30.0-36.0) 11/30/22 04:57 RDW 17.0 % (12.1-15.1) H 11/30/22 04:57 Plt Count 188 10^3/cmm (130-400) 11/30/22 04:57 MPV 10.1 fL (7.4-10.4) 11/30/22 04:57 Neut % (Auto) 64.7 % 11/30/22 04:57 Lymph % (Auto) 20.9 % 11/30/22 04:57 Dillon % (Auto) 9.0 % 11/30/22 04:57 Eos % (Auto) 4.5 % 11/30/22 04:57 Baso % (Auto) 0.7 % 11/30/22 04:57 Neut # (Auto) 3.75 10^3/uL (1.8-7.7) 11/30/22 04:57 Lymph # (Auto) 1.2 10^3/uL (0.8-4.8) 11/30/22 04:57 Dillon # (Auto) 0.5 10^3/uL (0.2-0.9) 11/30/22 04:57 Eos # (Auto) 0.3 10^3/uL (0.0-0.8) 11/30/22 04:57 Baso # (Auto) 0.0 10^3/uL (0.0-0.1) 11/30/22 04:57 Nucleated RBC % (auto) 0 % 11/30/22 04:57 Nucleated RBCs # 0.0 /100WBC 11/30/22 04:57 APTT 50.4 SECONDS (23.9-36.7) H D 11/29/22 16:48 Sodium 140 mmol/L (136-145) 11/30/22 04:57 Potassium 4.6 mmol/L (3.5-5.1) 11/30/22 04:57 Chloride 107 mmol/L (98-107) 11/30/22 04:57 Carbon Dioxide 24 mmol/L (22-29) 11/30/22 04:57 Anion Gap 13.6 (5-19) 11/30/22 04:57 BUN 29 mg/dL (8-23) H 11/30/22 04:57 Creatinine 1.3 mg/dL (0.5-0.9) H 11/30/22 04:57 GFR Calculation 40.5 mL/min (90-130) L 11/30/22 04:57 Glucose 97 mg/dL (65-115) 11/30/22 04:57 Calculated Osmolality 296 mOsm/kg (285-295) H 11/30/22 04:57 Calcium 8.9 mg/dL (8.5-10.5) 11/30/22 04:57 Vitals Last Vital Signs Temp 98.3 F 11/30/22 04:27 Pulse 71 11/30/22 05:28 Resp 18 11/30/22 04:27 BP 133/60 11/30/22 04:27 Pulse Ox 97 11/30/22 04:27 O2 Del Method Room Air 11/30/22 04:27 Discharge Plan Discharge Patient Disposition: Home Prescriptions: Continued multivitamin Tablet 1 tab PO QAM Tart Alonso Extract 1,000 mg capsule 1,000 mg PO BEDTIME sertraline 100 mg tablet 100 mg PO QAM Qty: 90 3RF albuterol sulfate 90 mcg/actuation HFA aerosol inhaler 2 puff INHALATION QID PRN (Reason: Shortness Of Breath) Qty: 6.7 0RF clopidogrel 75 mg tablet 75 mg PO BEDTIME Qty: 90 3RF pregabalin [Lyrica] 75 mg capsule 75 mg PO BID Qty: 60 3RF potassium chloride 20 mEq tablet,ER particles/crystals See Rx Instructions .ROUTE .COMPLEX Qty: 60 0RF Dose Instruction: TAKE 1 TABLET BY MOUTH EVERY MORNING Rx Instructions: TAKE 1 TABLET BY MOUTH EVERY MORNING Eliquis 5 mg tablet 5 mg PO BID Qty: 60 2RF Rx Instructions: Take 1 tablet twice daily. pantoprazole 40 mg tablet,delayed release (DR/EC) See Rx Instructions .ROUTE .COMPLEX Qty: 180 0RF Dose Instruction: TAKE 1 TABLET BY MOUTH TWICE DAILY Rx Instructions: TAKE 1 TABLET BY MOUTH TWICE DAILY isosorbide mononitrate 60 mg tablet extended release 24 hr 60 mg PO QAM Qty: 90 0RF Rx Instructions: Take 1 tablet by mouth every night at bedtime. alprazolam 0.5 mg Tablet 0.5 mg PO DAILY PRN (Reason: Anxiety) acetaminophen [Tylenol Arthritis Pain] 650 mg tablet extended release 1,300 mg PO BID lisinopril 20 mg tablet 20 mg PO BEDTIME omega-3 fatty acids 1,000 mg Capsule 1,000 mg PO BID atorvastatin 40 mg tablet 40 mg PO QAM Qty: 120 0RF allopurinol 100 mg tablet 400 mg PO QAM Qty: 30 0RF furosemide 40 mg tablet 40 mg PO QAM Qty: 30 0RF Discontinued nitroglycerin [Nitrostat] 0.4 mg tablet, sublingual 0.4 mg SUBLINGUAL Q5M PRN (Reason: Chest Pain) Qty: 14 2RF Rx Instructions: do not exceed 3 doses per episode metoprolol tartrate 25 mg tablet 25 mg PO BID No Action metoprolol tartrate 25 mg tablet 25 mg PO BID Qty: 120 3RF Nitrostat 0.4 mg tablet, sublingual 0.4 mg SUBLINGUAL Q5M PRN (Reason: Chest Pain) Qty: 30 2RF Rx Instructions: do not exceed 3 doses per episode Discharge Orders: Discharge Order (Routine); Ordered 11/30/22 Ordered By: Kel Molina Other Ambulatory Orders: Basic Metabolic Panel (Routine) Timeframe: 20221203 Facility: [facility] - Location: Lab - Main Lab Ordered By: Kel Molina Referrals: Derek Dowd DO [Primary Care Provider] - 12/13/22 10:00 am Linda Webster FNP [Nurse Practitioner] - 12/06/22 10:15 am Diet: Cardiac Activity: Increase activity as tolerated Patient Instructions: Coronary Angioplasty (DC), Hypertension (DC), Post Angiogram Home Care Instructions, Obstructive Sleep Apnea Discharge Date/Time: 11/30/22 09:15 Discharge Attestations Time Spent in Discharge Care*: greater than 30 min Status at Discharge: Cognitive status at discharge: cognitively intact , Behavioral status at discharge: cooperative , Quality Metrics Clinical Quality Measures [ No reported AMI, CVA or VTE this stay] Coding Level of Care Code Acute Code for Chg Fwd Diagnoses
[2022-11-30 08:24] VITALS: PULSE 70; RESP 16; O2SAT 96
[2022-11-30] MEDS: omega-3 fatty acids 1,000 mg Capsule 1000 MG PO (08:29)
[2022-11-30] MEDS: metoprolol tartrate 25 mg Tablet PO (08:29)
[2022-11-30] MEDS: aspirin 81 mg EC Tablet PO (08:29)
[2022-11-30] MEDS: pregabalin 75 mg Capsule PO (08:30)
[2022-11-30 08:56] VITALS: BP 131/95; PULSE 79; RESP 18; TEMP 36.5; O2SAT 96
--- NOTE | 2022-11-30 10:55 | PC.NURSE ---
Discharge Note Patient discharged to [home] via [POV] accompanied by [spouse]. Discharge instructions reviewed with patient and/or patient account representative. Mobile pharmacy medications and/or prescriptions provided. Belongings/home medications returned.
== END 2022-11-30 09:15 | disposition home or self-care (01) ==
LOC: CCL 08:51 → CSU 22:14
PROVIDERS: PCP Family Medicine; Visit Provider Internal Medicine
DX: I25.10 Atherosclerotic heart disease of native coronary artery without angina pectoris (principal); T82.855A Stenosis of coronary artery stent, initial encounter; Y71.2 Prosthetic and other implants, materials and accessory cardiovascular devices associated with adverse incidents; Z79.02 Long term (current) use of antithrombotics/antiplatelets; Z79.01 Long term (current) use of anticoagulants; Z95.1 Presence of aortocoronary bypass graft; I10 Essential (primary) hypertension; E78.5 Hyperlipidemia, unspecified; I73.9 Peripheral vascular disease, unspecified; Z87.891 Personal history of nicotine dependence
CPT/HCPCS: 36415; 80048; 85025; 85347; 85730; 93455; 96361; 96365; 96367; 96376; 99152; 99153; C1725; C1769; C1874; C1887; C1894; C9600; J1644; J2250; J3010; J7030; Q0163; Q9967

== ENCOUNTER → 2022-12-06 11:26 | Outpatient (BNVA) | payer BC, MEDICARE, SELFPAY | PROVIDERS: PCP Family Medicine; Visit Provider Nurse Practitioner Family | DX: Z45.010 Encounter for checking and testing of cardiac pacemaker pulse generator [battery] (principal); I10 Essential (primary) hypertension | CPT/HCPCS: 80048; 85025 ==

== ENCOUNTER 2022-12-21 07:39 | Day surgery (SDC) | payer BC, MEDICARE, SELFPAY ==
[2022-12-16 10:27] VITALS: BMI 29.1
[2022-12-16 10:31] LABS: Add Urine Microscopic? NO; Charge for UA Resulting for Rev
[2022-12-16 10:39] LABS: Bilirubin Urine Neg (Negative); Blood Urine Neg (Negative); Glucose Urine UA Norm (Normal); Ketones Urine Negative (Negative); Leukocyte Esterase Urine Negative (Negative); Nitrate Urine Negative (Negative); Protein Urine Neg (Negative); Urine Appearance Clear (CLEAR); Urine Color Straw (Yellow); Urobilinogen Urine Norm (Negative); pH Urine 5 (5-7)
[2022-12-16 10:47] LABS: Basophils # 0.1 10^3/uL (0.0-0.1); Basophils % 0.6 %; Eosinophils # 0.2 10^3/uL (0.0-0.8); Eosinophils % 2.8 %; Hematocrit 35.7 % (37.0-47.0); Hemoglobin 11.3 g/dL (11.5-15.3); Mean Corpuscular HGB Conc 31.7 g/dL (30.0-36.0); Mean Corpuscular Hemoglobin 30.5 pg (28.0-34.0); Mean Corpuscular Volume 96.5 fl (81-99); Mean Platelet Volume 10.4 fL (7.4-10.4); Monocytes # 0.5 10^3/uL (0.2-0.9); Monocytes % 5.7 %; Neutrophils # 6.17 10^3/uL (1.8-7.7); Neutrophils % 77.5 %; Nucleated Red Blood Cells % 0 %; Platelet Count 236 10^3/cmm (130-400); Red Cell Distribution Width 16.3 % (12.1-15.1)
--- NOTE | 2022-12-16 10:48 | ANES.PREANE2 ---
Pre-Anesthetic Assessment Height/Weight: Height 1.65 m Weight 79.379 kg Preop Diagnosis: Defibrillator generator at end of service Operation Date: 12/21/22 09:15 Proposed Procedures p Defibillator Generator Exchange [id number],I50.20(Not Applicable) - Rayshawn Kam MD Familial anesthetic complications: none Social No alcohol and No tobacco Exam alert, oriented x 3, clear to auscultation bilaterally and regular rate & rhythm Airway Mallampati: Class II Dentition: chipped Pulmonary Sleep Apnea pneumonia in august CV/HEM Atrial Fibrillation, Coronary Artery Disease (recent stent - last week after attempted 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 change), Congestive Heart Failure, Hypertension and Myocardial Infarction Chronic Renal Insufficiency 1 functioning kidney - stent placed GI Gastroesophageal Reflux Disease Musc/skel Lower Back Pain Neuropsych Transient Ischemic Attack Anesthetic Plan ASA status: 4 Anesthesia: MAC Risk of > 500 ml blood loss (7ml/kg in children): Yes, adequate IV access and fluids planned Medications/Allergies Home Medications Medication Instructions Recorded Confirmed Last Taken Type multivitamin 1 tab PO QAM 06/08/21 12/16/22 12/16/22 History sour son extract 1,000 mg 1,000 mg PO BEDTIME 06/23/21 12/16/22 12/15/22 History capsule (Tart Son Extract) alprazolam 0.5 mg tablet 0.5 mg PO DAILY PRN Anxiety 02/07/22 12/16/22 Unknown History omega-3 fatty acids 1,000 mg 1,000 mg PO BID 03/24/22 12/16/22 12/16/22 History capsule furosemide 40 mg tablet 40 mg PO QAM #30 tabs 03/27/22 12/16/22 12/16/22 Rx albuterol sulfate 90 mcg/actuation 2 puff inhalation QID PRN 07/28/22 12/16/22 09/17/22 Rx aerosol inhaler Shortness Of Breath #6.7 grams acetaminophen 650 mg 1,300 mg PO BID 09/17/22 12/16/22 12/16/22 History tablet,extended release (Tylenol Arthritis Pain) metoprolol tartrate 25 mg tablet 25 mg PO BID #120 tabs 12/06/22 12/16/22 12/16/22 Rx nitroglycerin 0.4 mg sublingual 0.4 mg sublingual Q5M PRN Chest 12/06/22 12/16/22 Unknown Rx tablet (Nitrostat) Pain #30 tabs Eliquis 5 mg tablet (apixaban) 5 mg PO BID #60 tabs 12/13/22 12/16/22 12/16/22 Rx allopurinol 100 mg tablet 400 mg PO QAM #90 tabs 12/13/22 12/16/22 12/16/22 Rx atorvastatin 40 mg tablet 40 mg PO QAM #90 tabs 12/13/22 12/16/22 12/16/22 Rx clopidogrel 75 mg tablet 75 mg PO BEDTIME #90 tabs 12/13/22 12/16/22 12/15/22 Rx isosorbide mononitrate 60 mg 60 mg PO QAM #90 tabs 12/13/22 12/16/22 12/15/22 Rx tablet,extended release 24 hr lisinopril 20 mg tablet 20 mg PO BEDTIME #90 tabs 12/13/22 12/16/22 12/15/22 Rx pantoprazole 40 mg tablet,delayed See Rx Instructions .Route 12/13/22 12/16/22 12/16/22 Rx release .COMPLEX #180 tabs potassium chloride 20 mEq See Rx Instructions .Route 12/13/22 12/16/22 12/16/22 Rx tablet,extended release(part/cryst) .COMPLEX #180 tabs pregabalin 75 mg capsule (Lyrica) 75 mg PO BID #60 caps 12/13/22 12/16/22 12/16/22 Rx sertraline 100 mg tablet 100 mg PO QAM #90 tabs 12/13/22 12/16/22 12/16/22 Rx glucosamine sulfate 500 mg tablet 500 mg PO BID 12/16/22 12/16/22 12/16/22 History (Glucosamine) Allergies Allergy/AdvReac Type Severity Reaction Status Date / Time levofloxacin [From Levaquin] Allergy ALGY-Redness Verified 12/14/22 09:47 of Skin Sulfa (Sulfonamide Allergy hives Verified 12/14/22 09:47 Antibiotics) adhesive tape AdvReac Mild Unknown Verified 12/14/22 09:47 [facility] Anesthesia Medical History Acute cystitis without hematuria Anticoagulant long-term use Atrial fibrillation Balance disorder Cardiac 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 therapy 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 ([employer]-D) in place Cardiomyopathy CHF (congestive heart failure) Chronic renal insufficiency, stage II (mild) Chronic tophaceous gout of both hands CKD (chronic kidney disease) stage 3, GFR 30-59 ml/min Cognitive impairment Elevated troponin I level GERD (gastroesophageal reflux disease) Gout HTN (hypertension) Hyperlipidemia Intracranial atherosclerosis Iron deficiency anemia Left bundle branch block MRSA carrier NSTEMI (non-ST elevated myocardial infarction) BASIA (obstructive sleep apnea) PAD (peripheral artery disease) Recurrent UTI Renal artery stenosis Right internal carotid artery aneurysm Sleep apnea Vertebral artery stenosis Vertebrobasilar insufficiency Surgical History H/O cardiac radiofrequency ablation S/P angioplasty with stent S/P appendectomy S/P CABG (coronary artery bypass graft) S/P section S/P hysterectomy S/P ICD (internal cardiac 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) procedure Status post aorto-coronary artery bypass graft Status post tubal ligation Family History Father , AT AGE 65 Hyperlipidemia CAD (coronary artery disease) Hypertension Rheumatoid arthritis Mother , AT AGE 65 Hyperlipidemia CAD (coronary artery disease) Hypertension Diabetes Sister Hyperlipidemia CAD (coronary artery disease) Hypertension Diabetes Other Cancer Social History Smoking and tobacco status: never smoked Second hand smoke exposure: No Alcohol intake: never Desire information about alcohol rehabilitation?: No Counseling given: No Substance/Drug Use: never Desire information about substance/drug rehabilitation?: No Counseling given: No Marital status: Current occupational status: retired Female Reproductive History Spontaneous abortions: No Data Anesthesia 12/16/22 10:25 12/16/22 10:25 Short CBC 12/16/22 Range/Units 10:25 WBC 8.0 (4.0-10.0) 10^3/uL Hgb 11.3 L (11.5-15.3) g/dL Hct 35.7 L (37.0-47.0) % MCV 96.5 (81-99) fl Plt Count 236 (130-400) 10^3/cmm Neut % (Auto) 77.5 % Neut # (Auto) 6.17 (1.8-7.7) 10^3/uL Urine 12/16/22 Range/Units 10:15 Urine Color Straw (Yellow) Urine Appearance Clear (CLEAR) Urine pH 5 (5-7) Ur Specific [place] 1.010 (1.005-1.030) Urine Protein Neg (Negative) Urine Glucose (UA) Norm (Normal) Urine Ketones Negative (Negative) Urine Nitrate Negative (Negative) Urine Bilirubin Neg (Negative) Ur Leukocyte Esterase Negative (Negative) Cardiac Studies: Echocardiogram 02/08/22 Echocardiogram Limited Views 09/18/22 Transesophageal Echocardiogram 09/21/22 Sestamibi Stress Test (Cardiology) 08/12/22
--- NOTE | 2022-12-16 10:55 | ECG_ITS ---
[facility] Test Date: 2022-12-16 Pat Name: Essie Alejandre Department: Room: Gender: Female Impregnator [employer] Drier: : 1950 Requested By: Medina Gibson Order Number: [id number] [id number] MD: Kel Molina M.D. Measurements Intervals [place] Rate: 73 P: 0 AK: 0 QRS: -65 QRSD: 152 T: 97 QT: 460 QTc: 507 Interpretive Statements ELECTRONIC VENTRICULAR PACEMAKER ABNORMAL RHYTHM ECG Compared to ECG 09/17/2022 18:13:54 No significant changes Electronically Signed On 12-17-2022 9:31:09 CDT by Kel Molina M.D. [email or web address]
--- NOTE | 2022-12-16 10:56 | SUR.PREOP ---
Preoperative appointment New UA, CBC, & BMP obtained and sent to lab. New EKG ordered and performed per Dr. Gibson request. Pre-op instructions given and patient verbalized understanding with all including medication instruction. New CHG bottle and soap given with instructions on use.
[2022-12-16 11:09] LABS: Anion Gap 15.1 (5-19); Blood Urea Nitrogen 43 mg/dL (8-23); Calcium 9.6 mg/dL (8.5-10.5); Carbon Dioxide 24 mmol/L (22-29); Chloride 105 mmol/L (98-107); Glomerular Filtration Rate 49.1 mL/min (90-130); Glucose 98 mg/dL (65-115); Osmolality Calculated 301 mOsm/kg (285-295); Potassium 4.1 mmol/L (3.5-5.1); Sodium 140 mmol/L (136-145)
[2022-12-21 07:50] VITALS: BP 117/76; PULSE 81; RESP 18; TEMP 36.6; O2SAT 96
[2022-12-21] MEDS: sodium chloride 0.9% 1,000 ML 30 ML IV (08:08)
[2022-12-21] MEDS: vancomycin 1,500 MG/300 ML PIGGYBACK 200 MG IV (08:27)
--- NOTE | 2022-12-21 08:50 | W.PM.OPSUD ---
Surgery/Procedure H&P Update DATE OF PROCEDURE: December 21, 2022 DATE H&P PERFORMED: 12/09/22 H&P UPDATE INFORMATION: I have reviewed H&P completed within last 30 days, I have examined patient prior to procedure and Changes to prior documentation as noted here CHANGES TO PREVIOUS DOCUMENTATION: Ms. Alejandre remains pain-free status post interventions to restenosis in her diagonal SVG vein graft for prior history for CABG. Her chest pain has resolved and now she is rescheduled for planned AICD generator exchange due to current device at end of service. Details and risks of surgery again carefully discussed. was present during interview. Both are eager to proceed. Appropriate consents have been reviewed and signed. PREOP DIAGNOSIS: Defibrillator generator at end of service PLANNED PROCEDURE: Operation Date: 12/21/22 09:15 Proposed Procedures p Defibillator Generator Exchange 45542,I50.20(Not Applicable) - Rayshawn Kam MD
--- NOTE | 2022-12-21 09:56 | ANES.PAUD2 ---
Pre-Anesthetic Update Pre-Anesthetic Assessment: Date of Surgery/Procedure: 12/21/22 Preop Diagnosis: Defibrillator generator at end of service Proposed Procedure: Operation Date: 12/21/22 09:15 Proposed Procedures p Defibillator Generator Exchange [id number],I50.20(Not Applicable) - Rayshawn Kam MD Any changes to Pre-Anesthetic Assessment?: No Last Intake: Intake Last Liquid Date 12/20/22 Last Liquid Time 20:00 Last Solid Date 12/20/22 Last Solid Time 20:00 Vitals: Temperature 97.8 F 12/21/22 07:50 Pulse Rate 81 12/21/22 07:50 Pulse Rhythm Regular 12/21/22 07:55 Pulse Strength 3+ Normal 12/21/22 07:55 Respiratory Rate 18 12/21/22 07:50 Blood Pressure 117/76 12/21/22 07:50 Blood Pressure Noreen n 89 12/21/22 07:50 Pulse Oximetry 96 12/21/22 07:50 Oxygen Delivery Me thod Room Air 12/21/22 07:55 Exam: Pre-Anes Outpt Exam: alert, oriented x 3, clear to auscultation bilaterally and regular rate & rhythm Cardiac Studies: Echocardiogram 02/08/22 Echocardiogram Limited Views 09/18/22 Transesophageal Echocardiogram 09/21/22 Sestamibi Stress Test (Cardiology) 08/12/22
[2022-12-21] MEDS: lidocaine 1% INJ 10 mL (per mL) 20 ML XX (09:58)
[2022-12-21] MEDS: vancomycin 1,000 MG SDV 1000 MG IRRIGATION (09:59)
[2022-12-21 10:49] VITALS: BP 124/65; PULSE 72; RESP 18; TEMP 36.1; O2SAT 99
--- NOTE | 2022-12-21 10:49 | PM.OP ---
Operative Report Date of procedure: December 21, 2022 Pre-op diagnosis: Preop Diagnosis Defibrillator generator at end of service Post-op diagnosis: same Procedure done: AICD generator exchange Implants: Medtronic AICD generator Specimens removed/disposition: Old Medtronic generator delivered to [employer] quality assurance representative Pathology: none sent Surgeon: Rayshawn Kam Anesthesia: MAC and Local Complications: None Condition: stable Disposition: same day Brief History: Ms. Alejandre is a 72-year-old female with previous AICD generator in place secondary to cardiomyopathy and status postcardiac 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 therapy with original generator replacement. Current generator at end of service. Does have an increased threshold of the LV lead, but related to the substantial difficulties with initial placement, it was felt not prudent to attempt revision of this lead. She has a recent undergone cardiac catheterization and intervention to a diagonal vein graft from prior CABG. Therefore, she is currently on Plavix. She has also been on Eliquis for prior pulmonary embolism though this was held for 2 days prior to the procedure. Related to her recent intervention, her Plavix has continue, thereby increasing her risk for bleeding complications. As well, she has had a prior staphylococcal septicemia with MRSA and was hospitalized from September 17 through September 23 for bacteremia felt to be secondary to pneumonia. Therefore, she is at increased risk for an infection concerns as well as bleeding related to her recent past history. Details and risk of surgery were carefully and frankly discussed. Appropriate consents have been reviewed and signed. Procedure: Ms. Alejandre was appropriately positioned and sterilely prepped and draped. IV consicious sedation was given with anesthesia monitoring. 1% lidocaine was infiltrated through the prior insertion incision site. # 15 scalpel blade was used to incise the skin down to subcutaneous layer. Subsequently, using sharp and blunt dissection the pseudocapsule to the old generator was reached and opened with a scalpel blade. This area was then enhanced utilizing Metzenbaum scissors with care taken not to injure the leads. She is noted to be pacer dependent. Once the pocket was adequate opened, hemostats were utilized to deliver the old generator. Set screws were released and the leads were removed and inserted properly into the new generator with set screws then secured. The old generator was removed from the field. The incision was irrigated with antibiotic solution. Hemostasis was confirmed. The new generator was placed back into the old subcutaneous pocket. The wound was then closed in 2 layers of 3-0 Vicryl suture. Skin was closed in a subcuticular manner with 4-0 undyed Vicryl suture. A 2 layer pressure dressing was then applied. The entire system was interrogated and appropriate parameters obtained. Patient tolerated procedure well and was taken to the recovery room in stable condition. I did halfway house counselor with the family at the completion of the procedure. [employer] AICD Generator: Model: [id number] Serial # [id number]
[2022-12-21 10:55] VITALS: BP 125/89; PULSE 70; RESP 15; O2SAT 96
[2022-12-21 11:00] VITALS: BP 116/75; PULSE 71; RESP 17; O2SAT 95
[2022-12-21 11:05] VITALS: BP 120/84; PULSE 75; RESP 16; TEMP 36.2; O2SAT 96
[2022-12-21 11:42] VITALS: BP 151/86; PULSE 70; RESP 16; O2SAT 96
--- NOTE | 2022-12-21 15:23 | ANE.PACU2 ---
Inpatient post-anesthesia follow up: Airway intact: Yes Vital signs: Temperature 97.2 F Pulse Rate 70 Respiratory Rate 16 Blood Pressure 151/86 Pulse Oximetry 96 Oxygen Delivery Me thod Room Air Oxygen Flow Rate 8 Fraction of Inspir ed Oxygen Hydration adequate: Yes Nausea and vomiting: No Pain level: 2 Mental status: Baseline
== END 2022-12-21 12:07 | disposition home or self-care (01) ==
PROVIDERS: PCP Family Medicine; Visit Provider Thoracic Surgery (Cardiothoracic Vascular Surgery)
PROC: 0JPT0PZ Removal of Cardiac Rhythm Related Device from Trunk Subcutaneous Tissue and Fascia, Open Approach (ICD-10-PCS; CPT 33263; principal; 2022-12-21 08:55)
DX: Z45.02 Encounter for adjustment and management of automatic implantable cardiac 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 (principal); I13.0 Hypertensive heart and chronic kidney disease with heart failure and stage 1 through stage 4 chronic kidney disease, or unspecified chronic kidney disease; N18.30 Chronic kidney disease, stage 3 unspecified; I50.9 Heart failure, unspecified; I42.9 Cardiomyopathy, unspecified; I48.91 Unspecified atrial fibrillation; I25.10 Atherosclerotic heart disease of native coronary artery without angina pectoris; I25.2 Old myocardial infarction; G47.33 Obstructive sleep apnea (adult) (pediatric); K21.9 Gastro-esophageal reflux disease without esophagitis; I44.7 Left bundle-branch block, unspecified; Z79.01 Long term (current) use of anticoagulants; Z79.02 Long term (current) use of antithrombotics/antiplatelets; Z79.899 Other long term (current) drug therapy; Z86.711 Personal history of pulmonary embolism; Z86.73 Personal history of transient ischemic attack (TIA), and cerebral infarction without residual deficits; Z86.14 Personal history of Methicillin resistant Staphylococcus aureus infection; Z95.1 Presence of aortocoronary bypass graft; Z95.5 Presence of coronary angioplasty implant and graft; Z88.2 Allergy status to sulfonamides
CPT/HCPCS: 33263; 36415; 80048; 81003; 85025; 93005; C1722; J2704; J3010; J3370; J7030

== ENCOUNTER → 2022-12-30 09:36 | Outpatient (BNVA) | payer BC, MEDICARE, SELFPAY | PROVIDERS: PCP Family Medicine; Visit Provider Nurse Practitioner Family | DX: Z95.810 Presence of automatic (implantable) cardiac 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 (principal); R07.9 Chest pain, unspecified | CPT/HCPCS: 99214 ==

== ENCOUNTER → 2023-02-15 10:20 | Outpatient (BNVA) | payer BC, MEDICARE, SELFPAY | PROVIDERS: PCP Family Medicine; Visit Provider Physician Assistant | DX: M54.2 Cervicalgia (principal); R20.0 Anesthesia of skin | CPT/HCPCS: 99024; 99213 ==

== ENCOUNTER → 2023-04-05 10:02 | Outpatient (BNVA) | payer BC, MEDICARE, SELFPAY | PROVIDERS: PCP Family Medicine; Visit Provider Family Medicine | DX: N18.9 Chronic kidney disease, unspecified (principal); E83.42 Hypomagnesemia; E87.6 Hypokalemia; N18.30 Chronic kidney disease, stage 3 unspecified; M10.9 Gout, unspecified | CPT/HCPCS: 80053; 81003; 82306; 82310; 82607; 82728; 82746; 83540; 83735; 83883; 83970; 84100; 84155; 84165; 85025; 85045 ==

== ENCOUNTER 2023-04-15 10:52 | Outpatient (CLI) | payer BC, MEDICARE, SELFPAY ==
--- NOTE | 2023-04-15 11:15 | US_ITS ---
WS: [id number] RENAL ULTRASOUND HISTORY: CKD Stage 3 COMPARISON: 11/13/2019 TECHNIQUE: 2-D and color Doppler imaging of the kidney submitted. Right kidney: 7.1 cm x 3.8 cm x 4.2 cm. Cortex: 0.6 cm Small caliber atrophied RIGHT kidney. Diffuse cortical thinning. Very similar in appearance to the pr ior study. There is increased echogenicity throughout the kidney. No mass identified. Possible renal cyst from the mid kidney measuring 1.5 x 1.4 x 1.6 cm. If this is related to the kidney it is very po maritza visualized. Left kidney: 11.7 cm x 5.4 cm x 5.6 cm. Cortex: 1.5 cm Normal echogenicity with no hydronephrosis or mass. Aorta: Atherosclerosis aorta. No aneurysm. Urinary Bladder: Normal distention. IMPRESSION: 1. Marked atrophy and cortical medical renal disease RIGHT kidney. Very similar to the prior study fr om 11/13/2019. No progression by ultrasound identified. 2. Normal LEFT kidney.
== END 2023-04-15 10:53 | disposition home or self-care (01) ==
PROVIDERS: PCP Family Medicine; Visit Provider Family Medicine
DX: M10.9 Gout, unspecified (principal); N18.30 Chronic kidney disease, stage 3 unspecified; E83.42 Hypomagnesemia; E87.6 Hypokalemia; N26.1 Atrophy of kidney (terminal)
CPT/HCPCS: 76770

== ENCOUNTER 2023-04-23 12:46 | Emergency (ER) | payer BC, MEDICARE, SELFPAY ==
[2023-04-23 12:52] VITALS: BP 157/94; PULSE 92; RESP 17; TEMP 36.8; O2SAT 97
--- NOTE | 2023-04-23 13:32 | XRR_ITS ---
PROCEDURE INFORMATION: Exam: XR Chest Exam date and time: 04/23/2023 3:02 PM Age: 72 years old Clinical indication: Patient HX: Epigastric pain; Cough TECHNIQUE: Imaging protocol: Radiologic exam of the chest. Views: 1 view. COMPARISON: CR XR chest 2V* [id number] 02/01/2023 9:54 AM FINDINGS: Lungs: No focal consolidation. Pleural spaces: No pleural effusion. No pneumothorax. Heart/Mediastinum: Cardiomegaly. Left chest cardiac device. Bones/joints: No acute findings. XR/XR chest 1V portable [id number] IMPRESSION: No acute findings.
--- NOTE | 2023-04-23 13:32 | CTR_ITS ---
PROCEDURE INFORMATION: Exam: CT Abdomen And Pelvis With Contrast Exam date and time: 04/23/2023 3:42 PM Age: 72 years old Clinical indication: Abdominal pain; Localized; Lower; Additional info: Lower abd pain, n/v TECHNIQUE: Imaging protocol: Computed tomography of the abdomen and pelvis with contrast. Radiation optimization: All CT scans at this facility use at least one of these dose optimization techniques: automated exposure control; mA and/or kV adjustment per patient size (includes targeted exams where dose is matched to clinical indication); or iterative reconstruction. Contrast material: OMNI 350; Contrast volume: 100 ml; Contrast route: INTRAVENOUS (IV); REPORTING DATA: Count of CT and Cardiac NM exams in prior 12 months: This patient has received 2 known CTs and 0 known cardiac nuclear medicine studies in the 12 months prior to the current study. COMPARISON: CT abdomen pelvis w con* [id number] 04/13/2021 1:36 PM RADIATION DOSE METRICS: Total DLP (mGy-cm): 765.07 FINDINGS: Liver: Subtle nodular contour of the liver. Heterogeneity may be perfusional or fatty infiltration. Gallbladder and bile ducts: No calcified stones. Gallbladder is mildly distended with mild wall thickening and trace pericholecystic fluid and surrounding mild fat stranding. Common duct normal caliber. Pancreas: No ductal dilation. Spleen: No splenomegaly. Adrenal glands: No mass. Kidneys and ureters: Right renal atrophy. Unchanged renal cysts and other tiny hypodensities too small to characterize. Stomach and bowel: Small hiatal hernia. No obstruction. Colonic diverticulosis without evidence of acute diverticulitis. Appendix: No evidence of appendicitis. Intraperitoneal space: Small volume abdominopelvic free fluid/ascites. Vasculature: Extensive atherosclerotic changes without aneurysm. Right renal artery stent in place. Lymph nodes: No enlarged lymph nodes. Urinary bladder: Decompressed. Reproductive: Unremarkable as visualized. Bones/joints: Degenerative changes without acute findings. Soft tissues: Unremarkable. CT/CT abdomen pelvis w con* [id number] IMPRESSION: Gallbladder is mildly distended and inflamed but no calcified stones or common duct dilatation. Findings favor CHF related perfusional changes given appearance of the liver and cardiomegaly, however, acalculous cholecystitis is a consideration if there is clinical correlation.
--- NOTE | 2023-04-23 13:34 | W.ED.NAVMDI ---
HPI - Nausea/Vomiting/Diarrhea General: Chief complaint: Nausea/Vomiting/Diarrhea Stated complaint: Lower abd pain,N/V Time Seen by Provider: 04/23/23 13:24 History of Present Illness: 72-year-old female comes in today for complaints of lower abdominal pain with nausea and vomiting for the last 3 weeks. Patient has been evaluated by her primary care with blood work and ultrasound. Ultrasound noted a atrophied right kidney. Laboratory values noted anemia, low magnesium, and chronic kidney disease with a creatinine of 1.6. Patient is taken to COVID-19 test and they both were negative. Patient appears mildly unwell but not toxic. Patient appears in no pain. Patient has a history of pacemaker insertion, cardiac arrhythmia, chronic anticoagulation, gout, neuropathy, coronary artery disease, and CHF. Associated nausea: Yes Associated symtoms: Reports malaise and nausea; Denies chest pain or headache(s) Review of Systems General: Reports: 10 or more systems reviewed and unremarkable except in HPI and below Const: Reports: malaise ENMT: Denies: throat pain Card: Denies: chest pain Resp: Denies: dyspnea GI: Reports: nausea and vomiting; Denies: diarrhea or constipation : Denies: difficulty voiding Musc: Denies: neck pain or back pain Skin/Breast: Denies: rash Neuro: Denies: headache(s) PFSH ED PFSH: Medical History NSTEMI (non-ST elevated myocardial infarction) Elevated troponin I level Acute cystitis without hematuria Intracranial atherosclerosis Balance disorder Cognitive impairment Cardiac 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 Recurrent UTI CKD (chronic kidney disease) stage 3, GFR 30-59 ml/min 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 GERD (gastroesophageal reflux disease) Hyperlipidemia Iron deficiency anemia Gout Sleep apnea Vertebral artery stenosis Left bundle branch block Right internal carotid artery aneurysm Vertebrobasilar insufficiency Atrial fibrillation PAD (peripheral artery disease) Renal artery stenosis Cardiomyopathy CHF (congestive heart failure) Anticoagulant long-term use BASIA (obstructive sleep apnea) HTN (hypertension) Chronic renal insufficiency, stage II (mild) Surgical History S/P appendectomy S/P section S/P hysterectomy Status post tubal ligation Status post aorto-coronary artery bypass graft S/P CABG (coronary artery bypass graft) S/P angioplasty with stent S/P ICD (internal cardiac 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) procedure H/O cardiac radiofrequency ablation Family History Father , AT AGE 65 Hyperlipidemia CAD (coronary artery disease) Hypertension Rheumatoid arthritis Mother , AT AGE 65 Hyperlipidemia CAD (coronary artery disease) Hypertension Diabetes Sister Hyperlipidemia CAD (coronary artery disease) Hypertension Diabetes Other Cancer Social History Smoking and tobacco/nicotine status: never used tobacco/nicotine Second hand smoke exposure: No Alcohol intake: never Substance/Drug Use: never Marital status: Current occupational status: retired Female Reproductive History: Spontaneous abortions: No Physical Exam Const: COMMON NORMALS: alert HENMT: COMMON NORMALS: normocephalic HEAD & SCALP: normocephalic THROAT: posterior oropharynx normal Neck/C-Spine: COMMON NORMALS: full ROM Resp: COMMON NORMALS: normal respiratory effort and clear to auscultation bilaterally AUSCULTATION: clear to auscultation bilaterally Cardio: COMMON NORMALS: regular rate and regular rhythm RATE: regular rate RHYTHM: regular rhythm GI: COMMON NORMALS: Soft to palpation and non-tender PALPATION: Yes Soft to palpation : COMMON NORMALS: Yes no CVA tenderness BLADDER/KIDNEY EXAM: Yes no CVA tenderness Back/Pelvis: COMMON NORMALS: no CVA tenderness Extremity: COMMON NORMALS: full ROM and no pedal edema Neuro: SENSORIUM/ORIENTATION: Yes alert Skin: COMMON NORMALS: turgor normal GENERAL SKIN EXAM: turgor normal Course Vital Signs: Vital signs: Vital Signs Temperature 98.2 F 04/23/23 12:52 Pulse Rate 73 04/23/23 14:31 Respiratory Rate 16 04/23/23 15:28 Blood Pressure 175/97 04/23/23 14:31 Pulse Oximetry 95 04/23/23 14:31 Oxygen Delivery Me thod Room Air 04/23/23 14:31 MDM - Nausea/Vomiting/Diarrhea Medical Decision Making 72-year-old female comes in today for complaints of nausea and vomiting for the last 3 weeks. Patient has been seen by primary care and have labs and ultrasound done. On exam patient's abdomen soft with minimal to no guarding or rebound tenderness. Bowel sounds are present. No CVA tenderness. Vital signs are normal except for some mild elevation of blood pressure. Differential diagnosis includes but not limited to diverticulitis, gastroenteritis, dehydration, gastritis, colitis. CBC was normal except for some mild anemia. CMP noted some mild elevation in bilirubin and alkaline phosphatase. CT was performed and noted a distended gallbladder without signs of calcified stones or common duct dilation. Gallbladder ultrasound was performed and was unremarkable. I believe patient probably has some gallbladder disease which is causing her pain and nausea. I referred patient to surgeon for further evaluation and treatment. Patient was written a prescription for dicyclomine, Zofran, and hydrocodone for symptoms. Patient knows to return for worsening symptoms such as high fever, uncontrolled pain, or inability to hold fluids down. Case management was requested to help with follow-up appointment with surgeon. Lab Data 04/23/23 13:58 04/23/23 13:58 Radiology Impressions Abdomen/Pelvis CT 04/23/23 13:32 IMPRESSION: Gallbladder is mildly distended and inflamed but no calcified stones or common duct dilatation. Findings favor CHF related perfusional changes given appearance of the liver and cardiomegaly, however, acalculous cholecystitis is a consideration if there is clinical correlation. Chest X-Ray 04/23/23 13:32 IMPRESSION: No acute findings. Laboratory Results WBC 8.54 10^3/uL (3.29-11.43) 04/23/23 13:58 RBC 3.69 10^6/uL (3.85-5.65) L 04/23/23 13:58 Hgb 10.10 g/dL (11.27-16.99) L 04/23/23 13:58 Hct 34.4 % (36-47) L 04/23/23 13:58 MCV 93.2 fl (85-98) 04/23/23 13:58 MCH 27.4 pg (27-33) 04/23/23 13:58 MCHC 29.4 g/dL (30-55) L 04/23/23 13:58 RDW 16.3 % (12.1-15.1) H 04/23/23 13:58 Plt Count 241 10^3/cmm (157-399) 04/23/23 13:58 MPV 9.5 fL (7.4-10.4) 04/23/23 13:58 Neut % (Auto) 76.9 % 04/23/23 13:58 Lymph % (Auto) 14.1 % 04/23/23 13:58 [place] % (Auto) 7.6 % 04/23/23 13:58 Eos % (Auto) 0.1 % 04/23/23 13:58 Baso % (Auto) 1.1 % 04/23/23 13:58 Neut # (Auto) 6.57 10^3/uL (1.8-7.7) 04/23/23 13:58 Lymph # (Auto) 1.2 10^3/uL (0.8-4.8) 04/23/23 13:58 [place] # (Auto) 0.7 10^3/uL (0.2-0.9) 04/23/23 13:58 Eos # (Auto) 0.0 10^3/uL (0.0-0.8) 04/23/23 13:58 Baso # (Auto) 0.1 10^3/uL (0.0-0.1) 04/23/23 13:58 Nucleated RBC % (auto) 0 % 04/23/23 13:58 Nucleated RBCs # 0.0 /100WBC 04/23/23 13:58 Sodium 139 mmol/L (136-145) 04/23/23 13:58 Potassium 3.4 mmol/L (3.5-5.1) L 04/23/23 13:58 Chloride 99 mmol/L (98-107) 04/23/23 13:58 Carbon Dioxide 22 mmol/L (22-29) 04/23/23 13:58 Anion Gap 21.4 (5-19) H 04/23/23 13:58 BUN 14 mg/dL (8-23) 04/23/23 13:58 Creatinine 0.9 mg/dL (0.5-0.9) 04/23/23 13:58 GFR Calculation 61.9 mL/min (90-130) L 04/23/23 13:58 Glucose 120 mg/dL (65-115) H 04/23/23 13:58 Calculated Osmolality 290 mOsm/kg (285-295) 04/23/23 13:58 Calcium 9.6 mg/dL (8.5-10.5) 04/23/23 13:58 Total Bilirubin 1.6 mg/dL (0.15-1.2) H 04/23/23 13:58 AST 63 U/L (0-32) H 04/23/23 13:58 ALT 22 U/L (0-33) 04/23/23 13:58 Alkaline Phosphatase 151 U/L (35-105) H 04/23/23 13:58 Total Protein 7.2 g/dL (6.6-8.7) 04/23/23 13:58 Albumin 4.2 g/dL (3.5-5.2) 04/23/23 13:58 Globulin 3.0 g/dL (1.3-4.6) 04/23/23 13:58 Lipase 18 U/L (13-60) 04/23/23 13:58 Urine Color Dark yellow (Yellow) 04/23/23 14:41 Urine Appearance Clear (CLEAR) 04/23/23 14:41 Urine pH 5 (5-7) 04/23/23 14:41 Ur Specific [place] 1.020 (1.005-1.030) 04/23/23 14:41 Urine Protein 3+ (Negative) H 04/23/23 14:41 Urine Glucose (UA) Norm (Normal) 04/23/23 14:41 Urine Ketones Negative (Negative) 04/23/23 14:41 Urine Blood 3+ (Negative) H 04/23/23 14:41 Urine Nitrate Negative (Negative) 04/23/23 14:41 Urine Bilirubin Neg (Negative) 04/23/23 14:41 Urine Urobilinogen Norm mg/dL (Negative) 04/23/23 14:41 Ur Leukocyte Esterase Negative (Negative) 04/23/23 14:41 Urine RBC 5-10 /hpf (0-2) H 04/23/23 14:41 Urine WBC None /hpf (0-5) 04/23/23 14:41 Ur Squamous Epith Cells 15-25 /hpf (0-5) H 04/23/23 14:41 Amorphous Sediment Not Reportable 04/23/23 14:41 Urine Bacteria 1+ /hpf (NONE) H 04/23/23 14:41 All radiology interpretation(s) finalized by discharge Discharge Plan Discharge Patient Disposition: Home Clinical Impression: Gallbladder colic Condition: Stable Prescriptions: New dicyclomine 10 mg capsule 10 mg PO QID PRN (Reason: abdominal pain) Qty: 40 0RF ondansetron HCl 4 mg tablet 4 mg PO Q8H PRN (Reason: nausea and vomiting) Qty: 12 0RF hydrocodone-acetaminophen 5-325 mg tablet 1 tab PO Q6H PRN (Reason: pain (scale score 7-10)) Qty: 12 0RF No Action multivitamin Tablet 1 tab PO QAM Tart Alonso Extract 1,000 mg capsule 1,000 mg PO BEDTIME Slow-Mag 71.5 mg tablet,delayed release (DR/EC) 71.5 mg PO BID Qty: 60 5RF albuterol sulfate 90 mcg/actuation HFA aerosol inhaler 2 puff INHALATION QID PRN (Reason: Shortness Of Breath) Qty: 6.7 0RF Nitrostat 0.4 mg tablet, sublingual 0.4 mg SUBLINGUAL Q5M PRN (Reason: Chest Pain) Qty: 30 2RF Rx Instructions: do not exceed 3 doses per episode atorvastatin 40 mg tablet 40 mg PO QAM Qty: 90 3RF clopidogrel 75 mg tablet 75 mg PO BEDTIME Qty: 90 3RF lisinopril 20 mg tablet 20 mg PO BEDTIME Qty: 90 3RF sertraline 100 mg tablet 100 mg PO QAM Qty: 90 3RF furosemide 40 mg tablet 40 mg PO QAM Qty: 30 5RF metoprolol tartrate 25 mg tablet 25 mg PO BID Qty: 120 3RF pregabalin [Lyrica] 75 mg capsule 75 mg PO BID Qty: 60 5RF alprazolam 0.5 mg Tablet 0.5 mg PO DAILY PRN (Reason: Anxiety) acetaminophen [Tylenol Arthritis Pain] 650 mg tablet extended release 1,300 mg PO BID glucosamine sulfate [Glucosamine] 500 mg Tablet 500 mg PO BID allopurinol 100 mg tablet 400 mg PO DAILY isosorbide mononitrate 60 mg tablet extended release 24 hr 60 mg PO BID potassium chloride 20 mEq tablet,ER particles/crystals 20 meq PO QAM pantoprazole 40 mg tablet,delayed release (DR/EC) 10 mg PO BID Eliquis 5 mg tablet 5 mg PO BID omega-3 fatty acids 1,000 mg Capsule 1,000 mg PO BID Discharge Orders: Discharge ED (Routine); Ordered 04/23/23 Ordered By: Rayshawn Grigsby Referrals: Nile,Derek W, DO [Primary Care Provider] - Discharge Diet: Advance as tolerated Discharge Activity: Increase activity as tolerated Patient Instructions: Biliary Colic (ED) Activity Restrictions/Additional Instructions: Home and rest. Drink plenty water and fluids. Eat a diet with low-fat. Follow-up with primary care or surgeon. Case management will contact you regarding follow-up appointment. Use dicyclomine 10 mg 1 tablet 4 times a day 30 minutes before each meal to help prevent abdominal pain after eating. Use ondansetron 4 mg every 8 hours as needed for nausea. Use hydrocodone for severe pain. Return to ER for worsening symptoms such as inability to hold fluids down, fever greater than 100.4, or uncontrolled abdominal pain. Coding Level of Care Code ED Inspector [employer] for Dario Guzman
[2023-04-23 14:03] VITALS: BP 171/98; PULSE 74; RESP 16; O2SAT 95
[2023-04-23 14:10] LABS: Basophils # 0.1 10^3/uL (0.0-0.1); Basophils % 1.1 %; Eosinophils % 0.1 %; Hematocrit 34.4 % (36-47); Lymphocytes # 1.2 10^3/uL (0.8-4.8); Lymphocytes % 14.1 %; Mean Corpuscular HGB Conc 29.4 g/dL (30-55); Mean Corpuscular Hemoglobin 27.4 pg (27-33); Mean Corpuscular Volume 93.2 fl (85-98); Mean Platelet Volume 9.5 fL (7.4-10.4); Monocytes # 0.7 10^3/uL (0.2-0.9); Monocytes % 7.6 %; Neutrophils # 6.57 10^3/uL (1.8-7.7); Neutrophils % 76.9 %; Nucleated Red Blood Cells % 0 %; Platelet Count 241 10^3/cmm (157-399); Red Blood Count 3.69 10^6/uL (3.85-5.65); Red Cell Distribution Width 16.3 % (12.1-15.1); White Blood Count 8.54 10^3/uL (3.29-11.43)
[2023-04-23 14:31] VITALS: BP 175/97; PULSE 73; RESP 16; O2SAT 95
[2023-04-23] MEDS: metoclopramide 5 mg/mL SDV 2 mL 10 MG IVP (14:47)
[2023-04-23 15:28] VITALS: RESP 16
[2023-04-23] MEDS: morphine 4 mg/mL SDV 1 mL 2 MG IVP (15:28)
[2023-04-23] MEDS: diphenhydrAMINE 50 mg/mL SDV 1mL 12.5 MG IVP (15:28)
[2023-04-23 15:31] LABS: Alanine Aminotransferase 22 U/L (0-33); Albumin Level 4.2 g/dL (3.5-5.2); Alkaline Phosphatase 151 U/L (35-105); Anion Gap 21.4 (5-19); Aspartate Amino Transferase 63 U/L (0-32); Blood Urea Nitrogen 14 mg/dL (8-23); Calcium 9.6 mg/dL (8.5-10.5); Carbon Dioxide 22 mmol/L (22-29); Chloride 99 mmol/L (98-107); Glomerular Filtration Rate 61.9 mL/min (90-130); Glucose 120 mg/dL (65-115); Lipase 18 U/L (13-60); Osmolality Calculated 290 mOsm/kg (285-295); Potassium 3.4 mmol/L (3.5-5.1); Sodium 139 mmol/L (136-145); Total Bilirubin 1.6 mg/dL (0.15-1.2); Total Protein 7.2 g/dL (6.6-8.7)
[2023-04-23] MEDS: iohexol 350 mg/mL 500 mL Btl (per mL) IV (15:48)
[2023-04-23 16:03] LABS: Urine Color Dark Yellow (Yellow)
[2023-04-23 16:04] LABS: Add Urine Culture? No; Add Urine Microscopic? YES; Bacteria Urine 1+ /hpf; Bilirubin Urine Neg (Negative); Blood Urine 3+ (Negative); Glucose Urine UA Norm (Normal); Ketones Urine Negative (Negative); Leukocyte Esterase Urine Negative (Negative); Nitrate Urine Negative (Negative); Protein Urine 3+ (Negative); Squamous Epithelial Cell Urine 15-25 /hpf (0-5); Urine Appearance Clear (CLEAR); Urobilinogen Urine Norm (Negative); pH Urine 5 (5-7)
--- NOTE | 2023-04-23 16:07 | USR_ITS ---
PROCEDURE INFORMATION: Exam: US Abdomen, Limited; Right Upper Quadrant Exam date and time: 04/23/2023 4:43 PM Age: 72 years old Clinical indication: Abdominal pain; Generalized; Additional info: Abnormal liver enzymes, possible cbd obstruction TECHNIQUE: Imaging protocol: Real time ultrasound of the abdomen with image documentation. Limited exam focused on the right upper quadrant. COMPARISON: CT abdomen pelvis w con* [id number] 04/23/2023 3:42 PM FINDINGS: Liver: No acute findings. Pulsatile portal venous flow. Gallbladder: Gallbladder wall upper limits of normal at 3 mm. No stones. Biliary ducts: Common duct measures up to 4 mm, within normal limits. Pancreas: Visualized pancreas is unremarkable. Right kidney: Atrophic. No hydronephrosis. Small simple cysts measuring up to 1.9 cm. US/US gall bladder [id number] IMPRESSION: Findings in the liver and gallbladder most likely cardiogenic/CHF related.
== END 2023-04-23 17:48 | disposition home or self-care (01) ==
PROVIDERS: Emergency Medicine; Emergency Provider Nurse Practitioner Family; PCP Family Medicine
DX: K80.20 Calculus of gallbladder without cholecystitis without obstruction (principal); Z79.01 Long term (current) use of anticoagulants; Z79.02 Long term (current) use of antithrombotics/antiplatelets; I25.2 Old myocardial infarction; I13.0 Hypertensive heart and chronic kidney disease with heart failure and stage 1 through stage 4 chronic kidney disease, or unspecified chronic kidney disease; I43 Cardiomyopathy in diseases classified elsewhere; N18.30 Chronic kidney disease, stage 3 unspecified; I50.9 Heart failure, unspecified; E78.5 Hyperlipidemia, unspecified; Z95.1 Presence of aortocoronary bypass graft; Z95.810 Presence of automatic (implantable) cardiac 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
CPT/HCPCS: 71045; 74177; 76705; 80053; 81001; 83690; 85025; 96374; 96375; 99285; J1200; J2270; J2765; Q9967

== ENCOUNTER → 2023-05-10 11:09 | Outpatient (BNVA) | payer BC, MEDICARE, SELFPAY | PROVIDERS: PCP Family Medicine; Visit Provider Surgery | DX: K82.9 Disease of gallbladder, unspecified (principal); K21.9 Gastro-esophageal reflux disease without esophagitis; Z12.11 Encounter for screening for malignant neoplasm of colon; R10.9 Unspecified abdominal pain | CPT/HCPCS: 99204 ==

== ENCOUNTER 2023-05-28 18:16 | Emergency (ER) | payer BC, MEDICARE, SELFPAY ==
[2023-05-28 18:36] VITALS: BP 151/96; PULSE 71; RESP 18; TEMP 36.8; O2SAT 95
[2023-05-28 18:43] VITALS: BP 151/96; PULSE 71; O2SAT 94
--- NOTE | 2023-05-28 18:45 | XRR_ITS ---
PROCEDURE INFORMATION: Exam: XR Chest Exam date and time: 05/28/2023 6:50 PM Age: 72 years old Clinical indication: Cardiovascular condition or disease; Congestive heart failure (chf); Cause unknown; Type unknown; Prior surgery; Surgery date: 6+ months; Surgery type: Pacer, cabg TECHNIQUE: Imaging protocol: Radiologic exam of the chest. Views: 1 view. COMPARISON: CR (CHEST, ) 04/23/2023 3:02 PM FINDINGS: Lungs: No focal consolidation. Pleural spaces: No evidence of pneumothorax or pleural effusion. Heart/Mediastinum: Postsurgical changes of the mediastinum compatible with prior CABG. Left subclavian approach biventricular pacemaker ICD. Cardiomediastinal silhouette is otherwise within normal limits. Bones/joints: No evidence of acute osseous abnormality. XR/XR chest 1V portable [id number] IMPRESSION: 1. No acute cardiopulmonary abnormality.
--- NOTE | 2023-05-28 18:46 | ED_ITS ---
HPI - Abdominal Pain 2 General: Chief Complaint: Abdominal Pain Stated Complaint: LEFT BREAST AND ABD PAIN Time Seen by Provider: 05/28/23 18:35 Source: patient and EMS Mode of arrival: EMS Limitations: no limitations History of Present Illness: 72-year-old female who states she been h aving gallbladder pain for months and abdominal pain. She has been seen here she is followed up with Dr. Amaya she states she has a HIDA scan scheduled on Tuesday she believes. Patient states over last 5 days she has had some worsening pain in her upper abdomen. States pain is currently a 3 out of 10 denies any shortness of breath does have history of CHF states she feels like her left breast is swollen denies any redness or pain. Associated Symptoms: Denies chills, diarrhea, dysuria, fever(s), nausea and vomiting Review of Systems 2 Const: Denies: fever(s), chills, body aches or change in appetite ENMT: Denies: throat pain or dental pain Card: Denies: chest pain Resp: Denies: dyspnea GI: Reports: abdominal pain; Denies: nausea, vomiting or diarrhea : Denies: dysuria Musc: Denies: neck pain or back pain Skin/Breast: Denies: rash Neuro: Denies: headache(s) PFSH ED 2 PFSH: Medical History NSTEMI (non-ST elevated myocardial infarction) Elevated troponin I level Acute cystitis without hematuria Intracranial atherosclerosis Balance disorder Cognitive impairment Cardiac 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 therapy 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 Recurrent UTI CKD (chronic kidney disease) stage 3, GFR 30-59 ml/min 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 GERD (gastroesophageal reflux disease) Hyperlipidemia Iron deficiency anemia Gout Sleep apnea Vertebral artery stenosis Left bundle branch block Right internal carotid artery aneurysm Vertebrobasilar insufficiency Atrial fibrillation PAD (peripheral artery disease) Renal artery stenosis Cardiomyopathy CHF (congestive heart failure) Anticoagulant long-term use BASIA (obstructive sleep apnea) HTN (hypertension) Chronic renal insufficiency, stage II (mild) Surgical History S/P appendectomy S/P section S/P hysterectomy Status post tubal ligation Status post aorto-coronary artery bypass graft S/P CABG (coronary artery bypass graft) S/P angioplasty with stent S/P ICD (internal cardiac 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) procedure H/O cardiac radiofrequency ablation Family History Father , AT AGE 65 Hyperlipidemia CAD (coronary artery disease) Hypertension Rheumatoid arthritis Mother , AT AGE 65 Hyperlipidemia CAD (coronary artery disease) Hypertension Diabetes Sister Hyperlipidemia CAD (coronary artery disease) Hypertension Diabetes Other Cancer Social History Smoking and tobacco/nicotine status: never used tobacco/nicotine Second hand smoke exposure: No Alcohol intake: never Substance/Drug Use: never Marital status: Current occupational status: retired Female Reproductive History: Spontaneous abortions: No Physical Exam 2 Const: COMMON NORMALS: no acute distress, patient oriented x3 and healthy appearing HENMT: COMMON NORMALS: normocephalic and atraumatic HEAD & SCALP: n ormocephalic and atraumatic Eye: COMMON NORMALS: Equal, round and reactive pupils present and EOMs intact bilaterally PUPIL: Yes Equal, round and reactive pupils present Neck/C-Spine: COMMON NORMALS: full ROM and supple Chest: COMMONS NORMALS: normal inspection of the chest and normal palpation of entire chest wall OTHER: Left breast appears normal nontender no redness no mass palpated Resp: COMMON NORMALS: normal respiratory effort, No retractions, No use of accessory muscles and clear to auscultation bilaterally AUSCULTATION: clear to auscultation bilaterally Cardio: COMMON NORMALS: regular rate, regular rhythm and No murmurs present (Cardio) RATE: regular rate RHYTHM: regular rhythm GI: COMMON NORMALS: Normal to inspection, nondistended, normoactive bowel sounds present, Soft to palpation, non-tender and no masses PALPATION: Yes Soft to palpation Extremity: COMMON NORMALS: normal to inspection and full ROM Neuro: COMMON NORMALS: patient oriented x3, moves all extremities and no focal motor deficits Psych: COMMON NORMALS: mental status grossly normal, Normal thought process present and cooperative THOUGHT PROCESS: Normal thought process present Skin: COMMON NORMALS: no rashes or lesions noted and no wounds GENERAL SKIN EXAM: no rashes or lesions noted Course 2 Vital Signs: Vital signs: Vital Signs Temperature 98.2 F 05/28/23 18:36 Pulse Rate 72 05/28/23 20:24 Respiratory Rate 18 05/28/23 18:36 Blood Pressure 133/97 05/28/23 20:24 Pulse Oximetry 96 05/28/23 20:24 Oxygen Delivery Me thod Room Air 05/28/23 19:33 MDM - Abdominal Pain Medical Decision Making Patient presents here with abdominal pain's been chronic in nature blood work here is normal no signs of acute surgical abdomen breast exam is normal she is to follow-up with Dr. Amaya as scheduled return if worsening she understands agrees plan Medical Records I reviewed the patient's medical records. Lab Data I reviewed the patient's lab results. 05/28/23 17:29 05/28/23 17:29 Labs/Radiology: Radiology Impressions Chest X-Ray 05/28/23 18:45 IMPRESSION: 1. No acute cardiopulmonary abnormality. Laboratory Results WBC 5.96 10^3/uL (3.29-11.43) 05/28/23 17: RBC 4.01 10^6/uL (3.85-5.65) 05/28/23 17: Hgb 10.90 g/dL (11.27-16.99) L 05/28/23 17:29 Hct 37.7 % (36-47) 05/28/23 17:29 MCV 94.0 fl (85-98) 05/28/23 17:29 MCH 27.2 pg (27-33) 05/28/23 17: MCHC 28.9 g/dL (30-55) L 05/28/23 17:29 RDW 19.8 % (12.1-15.1) H 05/28/23 17:29 Plt Count 210 10^3/cmm (157-399) 05/28/23 17:29 MPV 11.2 fL (7.4-10.4) H 05/28/23 17:29 Neut % (Auto) 67.0 % 05/28/23 17: Lymph % (Auto) 22.5 % 05/28/23 17: [place] % (Auto) 8.9 % 05/28/23 17:29 Eos % (Auto) 0.3 % 05/28/23 17:29 Baso % (Auto) 1.0 % 05/28/23 17: Neut # (Auto) 3.99 10^3/uL (1.8-7.7) 05/28/23 17: Lymph # (Auto) 1.3 10^3/uL (0.8-4.8) 05/28/23 17:29 [place] # (Auto) 0.5 10^3/uL (0.2-0.9) 05/28/23 17:29 Eos # (Auto) 0.0 10^3/uL (0.0-0.8) 05/28/23 17: Baso # (Auto) 0.1 10^3/uL (0.0-0.1) 05/28/23 17: Nucleated RBC % (auto) 0 % 05/28/23 17: Nucleated RBCs # 0.0 /100WBC 05/28/23 17: Sodium 145 mmol/L (136-145) 05/28/23 17: Potassium 3.3 mmol/L (3.5-5.1) L 05/28/23 17: Chloride 105 mmol/L (98-107) 05/28/23 17: Carbon Dioxide 25 mmol/L (22-29) 05/28/23 17: Anion Gap 18.3 (5-19) 05/28/23 17:29 BUN 24 mg/dL (8-23) H 05/28/23 17:29 Creatinine 1.1 mg/dL (0.5-0.9) H 05/28/23 17:29 GFR Calculation 49.1 mL/min (90-130) L 05/28/23 17:29 Glucose 149 mg/dL (65-115) H 05/28/23 17:29 Calculated Osmolality 307 mOsm/kg (285-295) H 05/28/23 17:29 Calcium 9.3 mg/dL (8.5-10.5) 05/28/23 17:29 Total Bilirubin 1.0 mg/dL (0.15-1.2) 05/28/23 17: AST 34 U/L (0-32) H 05/28/23 17: ALT 15 U/L (0-33) 05/28/23 17:29 Alkaline Phosphatase 198 U/L (35-105) H 05/28/23 17:29 NT-Pro-B Natriuret Pep 7568 pg/mL (0-125) H 05/28/23 17:29 Total Protein 7.1 g/dL (6.6-8.7) 05/28/23 17:29 Albumin 4.0 g/dL (3.5-5.2) 05/28/23 17:29 Globulin 3.1 g/dL (1.3-4.6) 05/28/23 17:29 Lipase 42 U/L (13-60) 05/28/23 17:29 No radiology studies performed this visit Discharge Plan Discharge Patient Disposition: Home Clinical Impression: Abdominal pain Condition: Stable Prescriptions: New hydrocodone-acetaminophen 5-325 mg tablet 1 tab PO Q6H PRN (Reason: pain) Qty: 14 0RF ondansetron 4 mg tablet,disintegrating 4 mg PO Q6H PRN (Reason: nausea and vomiting) Qty: 14 0RF No Action multivitamin Tablet 1 tab PO QAM Tart Alonso Extract 1,000 mg capsule 1,000 mg PO BEDTIME lisinopril 10 mg tablet 10 mg PO DAILY Qty: 90 3RF Slow-Mag 71.5 mg tablet,delayed release (DR/EC) 71.5 mg PO BID Qty: 60 5RF allopurinol 100 mg tablet 400 mg PO DAILY Qty: 120 11RF ondansetron HCl 8 mg tablet 8 mg PO Q8H PRN (Reason: nausea and vomiting) Qty: 20 0RF albuterol sulfate 90 mcg/actuation HFA aerosol inhaler 2 puff INHALATION QID PRN (Reason: Shortness Of Breath) Qty: 6.7 0RF Nitrostat 0.4 mg tablet, sublingual 0.4 mg SUBLINGUAL Q5M PRN (Reason: Chest Pain) Qty: 30 2RF Rx Instructions: do not exceed 3 doses per episode atorvastatin 40 mg tablet 40 mg PO QAM Qty: 90 3RF clopidogrel 75 mg tablet 75 mg PO BEDTIME Qty: 90 3RF sertraline 100 mg tablet 100 mg PO QAM Qty: 90 3RF furosemide 40 mg tablet 40 mg PO QAM Qty: 30 5RF metoprolol tartrate 25 mg tablet 25 mg PO BID Qty: 120 3RF pregabalin [Lyrica] 75 mg capsule 75 mg PO BID Qty: 60 5RF Eliquis 5 mg tablet See Rx Instructions .ROUTE .COMPLEX Qty: 60 1RF Dose Instruction: TAKE ONE TABLET BY MOUTH TWICE DAILY Rx Instructions: TAKE ONE TABLET BY MOUTH TWICE DAILY alprazolam 0.5 mg Tablet 0.5 mg PO DAILY PRN (Reason: Anxiety) acetaminophen [Tylenol Arthritis Pain] 650 mg tablet extended release 1,300 mg PO BID glucosamine sulfate [Glucosamine] 500 mg Tablet 500 mg PO BID isosorbide mononitrate 60 mg tablet extended release 24 hr 60 mg PO BID potassium chloride 20 mEq tablet,ER particles/crystals 20 meq PO QAM pantoprazole 40 mg tablet,delayed release (DR/EC) 10 mg PO BID dicyclomine 10 mg capsule 10 mg PO QID PRN (Reason: abdominal pain) Qty: 40 0RF omega-3 fatty acids 1,000 mg Capsule 1,000 mg PO BID Discharge Orders: Discharge ED (Routine); Ordered 05/28/23 Ordered By: Adelaide Lomeli Referrals: Derek Dowd DO [Primary Care Provider] - Fran Amaya DO [Physician] - 1-3 days Discharge Diet: Advance as tolerated Discharge Activity: Resume usual activity Patient Instructions: Abdominal Pain (ED), Opioid Safety Coding Level of Care Code ED Simulation Analyst for Dario Guzman
[2023-05-28 18:53] LABS: Basophils # 0.1 10^3/uL (0.0-0.1); Eosinophils % 0.3 %; Hematocrit 37.7 % (36-47); Lymphocytes # 1.3 10^3/uL (0.8-4.8); Lymphocytes % 22.5 %; Mean Corpuscular HGB Conc 28.9 g/dL (30-55); Mean Corpuscular Hemoglobin 27.2 pg (27-33); Mean Platelet Volume 11.2 fL (7.4-10.4); Monocytes # 0.5 10^3/uL (0.2-0.9); Monocytes % 8.9 %; Neutrophils # 3.99 10^3/uL (1.8-7.7); Nucleated Red Blood Cells % 0 %; Platelet Count 210 10^3/cmm (157-399); Red Blood Count 4.01 10^6/uL (3.85-5.65); Red Cell Distribution Width 19.8 % (12.1-15.1); White Blood Count 5.96 10^3/uL (3.29-11.43)
[2023-05-28 19:27] LABS: Alanine Aminotransferase 15 U/L (0-33); Alkaline Phosphatase 198 U/L (35-105); Anion Gap 18.3 (5-19); Aspartate Amino Transferase 34 U/L (0-32); Blood Urea Nitrogen 24 mg/dL (8-23); Calcium 9.3 mg/dL (8.5-10.5); Carbon Dioxide 25 mmol/L (22-29); Chloride 105 mmol/L (98-107); Globulin 3.1 g/dL (1.3-4.6); Glomerular Filtration Rate 49.1 mL/min (90-130); Glucose 149 mg/dL (65-115); Lipase 42 U/L (13-60); NT Pro B Type Natriuretic Pept 7568 pg/mL (0-125); Osmolality Calculated 307 mOsm/kg (285-295); Potassium 3.3 mmol/L (3.5-5.1); Sodium 145 mmol/L (136-145); Total Protein 7.1 g/dL (6.6-8.7)
[2023-05-28 19:33] VITALS: BP 151/96; PULSE 69; O2SAT 95
[2023-05-28] MEDS: FUROsemide 10 mg/mL SDV 4mL 40 MG IVP (20:13)
[2023-05-28 20:24] VITALS: BP 133/97; PULSE 72; O2SAT 96
== END 2023-05-28 20:26 | disposition home or self-care (01) ==
PROVIDERS: Emergency Provider Emergency Medicine; PCP Family Medicine
DX: R10.10 Upper abdominal pain, unspecified (principal); I25.2 Old myocardial infarction; I13.0 Hypertensive heart and chronic kidney disease with heart failure and stage 1 through stage 4 chronic kidney disease, or unspecified chronic kidney disease; N18.30 Chronic kidney disease, stage 3 unspecified; I50.9 Heart failure, unspecified; I43 Cardiomyopathy in diseases classified elsewhere; E78.5 Hyperlipidemia, unspecified; Z95.1 Presence of aortocoronary bypass graft; Z95.810 Presence of automatic (implantable) cardiac 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
CPT/HCPCS: 71045; 80053; 83690; 83880; 85025; 96374; 99284; J1940

== ENCOUNTER 2023-05-30 08:48 | Outpatient (CLI) | payer BC, MEDICARE, SELFPAY ==
--- NOTE | 2023-05-30 10:00 | NM_ITS ---
WS: [id number] NUCLEAR MEDICINE HIDA SCAN CLINICAL INFORMATION: gallbladder problem TECHNIQUE: Following intravenous administration of 7.2 mCi of technetium 99m mebrofenin, images of th e abdomen were obtained over the course of 60 minutes. Next, gallbladder ejection fraction was determ ined by obtaining preprandial and one-hour postprandial images of the gallbladder following oral petros stion of Ensure. COMPARISON: Ultrasound 04/23/2023 FINDINGS: Normal hepatic uptake at 5 minutes. Normal hepatic excretion. Normal common bile duct and small bowel activity. Gallbladder is visualized by 20 minutes. No evidence of acute cholecystitis. Gallbladder ejection fraction 85% within normal limits. No evidence of chronic cholecystitis. IMPRESSION: 1. No evidence of acute or chronic cholecystitis. 2. Gallbladder ejection fraction 85% within normal limits.
== END 2023-05-30 08:49 | disposition home or self-care (01) ==
LOC: RAD 08:49
PROVIDERS: PCP Family Medicine; Visit Provider Surgery
DX: K82.9 Disease of gallbladder, unspecified (principal)
CPT/HCPCS: 78227; A9537

== ENCOUNTER → 2023-05-31 08:58 | Outpatient (BNVA) | payer BC, MEDICARE, SELFPAY | PROVIDERS: PCP Family Medicine; Visit Provider Surgery | DX: R10.9 Unspecified abdominal pain (principal); I50.33 Acute on chronic diastolic (congestive) heart failure; K82.9 Disease of gallbladder, unspecified | CPT/HCPCS: 99214 ==

== ENCOUNTER 2023-06-06 09:18 | Emergency (ER) | payer BC, MEDICARE, SELFPAY ==
--- NOTE | 2023-06-06 09:25 | ECG_ITS ---
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 Measurements Intervals [place] Rate: 79 P: 0 FL: 0 QRS: -64 QRSD: 165 T: 102 QT: 474 QTc: 544 Interpretive Statements ELECTRONIC VENTRICULAR PACEMAKER ABNORMAL RHYTHM ECG INTERPRETATION BASED ON A DEFAULT AGE OF 40 YEARS Compared to ECG 12/16/2022 10:59:48 No significant changes Electronically Signed On 06-06-2023 19:28:19 ADOLESCENT SPECIALIST by Ghulam Allen M.D. [id number]
[2023-06-06 09:27] VITALS: BP 158/94; PULSE 74; RESP 18; TEMP 36.8; O2SAT 98
--- NOTE | 2023-06-06 10:02 | XRR_ITS ---
PROCEDURE INFORMATION: Exam: XR Chest Exam date and time: 06/06/2023 10:06 AM Age: 72 years old Clinical indication: Pain; Angina pectoris; Additional info: Cxp TECHNIQUE: Imaging protocol: Radiologic exam of the chest. Views: 1 view. COMPARISON: CR (CHEST, ) 05/28/2023 6:50 PM FINDINGS: Tubes, catheters and devices: There is stable intact pacemaker/AICD hardware. Lungs: Unremarkable. No consolidation. Pleural spaces: Unremarkable. No pleural effusion. No pneumothorax. Heart/Mediastinum: Stable mild cardiomegaly. Bones/joints: Sternal sutures are again seen. No acute findings. XR/XR chest 1V portable [id number] IMPRESSION: No acute findings.
[2023-06-06 10:48] LABS: Basophils % 0.4 %; Eosinophils % 0.5 %; Lymphocytes # 0.8 10^3/uL (0.8-4.8); Lymphocytes % 10.4 %; Mean Corpuscular HGB Conc 29.4 g/dL (30-55); Mean Corpuscular Hemoglobin 27.2 pg (27-33); Mean Corpuscular Volume 92.5 fl (85-98); Mean Platelet Volume 10.2 fL (7.4-10.4); Monocytes # 0.5 10^3/uL (0.2-0.9); Monocytes % 7.3 %; Nucleated Red Blood Cells % 0 %; Platelet Count 181 10^3/cmm (157-399); Red Blood Count 3.89 10^6/uL (3.85-5.65); Red Cell Distribution Width 19.9 % (12.1-15.1); White Blood Count 7.41 10^3/uL (3.29-11.43)
[2023-06-06 10:59] LABS: INR 2.05 (0.8-1.2); Partial Thromboplastin Time 38.4 SECONDS (23.9-36.7)
[2023-06-06 11:02] VITALS: BP 161/111; PULSE 71; RESP 17; O2SAT 96
[2023-06-06 11:02] LABS: Troponin(5th) Baseline 90 ng/L (0-10)
[2023-06-06 11:10] LABS: Alanine Aminotransferase 23 U/L (0-33); Alkaline Phosphatase 199 U/L (35-105); Anion Gap 21.4 (5-19); Aspartate Amino Transferase 54 U/L (0-32); Blood Urea Nitrogen 27 mg/dL (8-23); Calcium 9.5 mg/dL (8.5-10.5); Carbon Dioxide 23 mmol/L (22-29); Chloride 99 mmol/L (98-107); Globulin 2.8 g/dL (1.3-4.6); Glomerular Filtration Rate 49.1 mL/min (90-130); Glucose 97 mg/dL (65-115); NT Pro B Type Natriuretic Pept 10213 pg/mL (0-125); Osmolality Calculated 295 mOsm/kg (285-295); Potassium 3.4 mmol/L (3.5-5.1); Sodium 140 mmol/L (136-145); Total Bilirubin 1.2 mg/dL (0.15-1.2); Total Protein 6.8 g/dL (6.6-8.7)
--- NOTE | 2023-06-06 11:25 | ED_ITS ---
HPI - Chest Pain 2 General: Chief Complaint: Chest Pain Stated Complaint: chest pain and tightness, sob, swelling Time Seen by Provider: 06/06/23 10:03 Source: patient Mode of arrival: ambulatory Limitations: no limitations History of Present Illness: 72-year-old female with a history of con gestive heart failure states that over the last 3 to 4 days she has been having increasing shortness of breath especially with exertion. She states that she feels like her legs are swelling and she is having fatigue as well. She denies any chest pain to me she says that her dyspnea is much worse with exertion. She is on Lasix at home typically takes 40 she states for the last 2 days she is taking 80 mg Associated symptoms: Reports dyspnea; Deny abdominal pain, fever(s), nausea or vomiting Review of Systems 2 Const: Denies: fever(s), chills, body aches or change in appetite ENMT: Denies: throat pain or dental pain Card: Denies: chest pain Resp: Reports: dyspnea GI: Denies: abdominal pain, nausea, vomiting or diarrhea Musc: Reports: extremity swelling; Denies: neck pain or back pain Skin/Breast: Denies: rash Neuro: Denies: headache(s) PFSH ED 2 PFSH: Medical History NSTEMI (non-ST elevated myocardial infarction) Elevated troponin I level Acute cystitis without hematuria Intracranial atherosclerosis Balance disorder Cognitive impairment Cardiac 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 therapy 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 (CAFE ASSOCIATE-D) in place Recurrent UTI CKD (chronic kidney disease) stage 3, GFR 30-59 ml/min 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 GERD (gastroesophageal reflux disease) Hyperlipidemia Iron deficiency anemia Gout Sleep apnea Vertebral artery stenosis Left bundle branch block Right internal carotid artery aneurysm Vertebrobasilar insufficiency Atrial fibrillation PAD (peripheral artery disease) Renal artery stenosis Cardiomyopathy CHF (congestive heart failure) Anticoagulant long-term use BASIA (obstructive sleep apnea) HTN (hypertension) Chronic renal insufficiency, stage II (mild) Surgical History S/P appendectomy S/P section S/P hysterectomy Status post tubal ligation Status post aorto-coronary artery bypass graft S/P CABG (coronary artery bypass graft) S/P angioplasty with stent S/P ICD (internal cardiac 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) procedure H/O cardiac radiofrequency ablation Family History Father , AT AGE 65 Hyperlipidemia CAD (coronary artery disease) Hypertension Rheumatoid arthritis Mother , AT AGE 65 Hyperlipidemia CAD (coronary artery disease) Hypertension Diabetes Sister Hyperlipidemia CAD (coronary artery disease) Hypertension Diabetes Other Cancer Social History Smoking and tobacco/nicotine status: never used tobacco/nicotine Second hand smoke exposure: No Alcohol intake: never Substance/Drug Use: never Marital status: Current occupational status: retired Female Reproductive History: Spontaneous abortions: No Physical Exam 2 Const: COMMON NORMALS: no acute distress, patient oriented x3 and healthy appearing HENMT: COMMON NORMALS: normocephalic and atraumatic HEAD & SCALP: n ormocephalic and atraumatic Eye: COMMON NORMALS: Equal, round and reactive pupils present and EOMs intact bilaterally PUPIL: Yes Equal, round and reactive pupils present Neck/C-Spine: COMMON NORMALS: full ROM and supple Chest: COMMONS NORMALS: normal inspection of the chest and normal palpation of entire chest wall Resp: COMMON NORMALS: normal respiratory effort, No retractions, No use of accessory muscles and clear to auscultation bilaterally AUSCULTATION: clear to auscultation bilaterally Cardio: COMMON NORMALS: regular rate, regular rhythm and No murmurs present (Cardio) RATE: regular rate RHYTHM: regular rhythm GI: COMMON NORMALS: Normal to inspection, nondistended, normoactive bowel sounds present, Soft to palpation, non-tender and no masses PALPATION: Yes Soft to palpation Extremity: COMMON NORMALS: normal to inspection and full ROM Neuro: COMMON NORMALS: patient oriented x3, moves all extremities and no focal motor deficits Psych: COMMON NORMALS: mental status grossly normal, Normal thought process present and cooperative THOUGHT PROCESS: Normal thought process present Skin: COMMON NORMALS: no rashes or lesions noted and no wounds GENERAL SKIN EXAM: no rashes or lesions noted Course 2 Vital Signs: Vital signs: Vital Signs Temperature 98.2 F 06/06/23 09:27 Pulse Rate 73 06/06/23 14:29 Respiratory Rate 17 06/06/23 14:29 Blood Pressure 170/98 06/06/23 14:29 Pulse Oximetry 96 06/06/23 14:29 Oxygen Delivery Me thod Room Air 06/06/23 09:27 MDM - Chest Pain Medical Decision Making Patient presents here with dyspnea along with swelling he is well-appearing here no severe distress did give her dose of Lasix here she is to double up her Lasix at home and follow-up with her sticker machine operator as scheduled on 15 June she is return if worsening she understands agrees to plan. Medical Records I reviewed the patient's medical records. Lab Data I reviewed the patient's lab results. 06/06/23 10:33 06/06/23 10:33 Radiology Impressions Chest X-Ray 06/06/23 10:02 IMPRESSION: No acute findings. Laboratory Results WBC 7.41 10^3/uL (3.29-11.43) 06/06/23 10:33 RBC 3.89 10^6/uL (3.85-5.65) 06/06/23 10:33 Hgb 10.60 g/dL (11.27-16.99) L 06/06/23 10:33 Hct 36.0 % (36-47) 06/06/23 10:33 MCV 92.5 fl (85-98) 06/06/23 10:33 MCH 27.2 pg (27-33) 06/06/23 10:33 MCHC 29.4 g/dL (30-55) L 06/06/23 10:33 RDW 19.9 % (12.1-15.1) H 06/06/23 10:33 Plt Count 181 10^3/cmm (157-399) 06/06/23 10:33 MPV 10.2 fL (7.4-10.4) 06/06/23 10:33 Neut % (Auto) 81.0 % 06/06/23 10:33 Lymph % (Auto) 10.4 % 06/06/23 10:33 Yell % (Auto) 7.3 % 06/06/23 10:33 Eos % (Auto) 0.5 % 06/06/23 10:33 Baso % (Auto) 0.4 % 06/06/23 10:33 Neut # (Auto) 6.00 10^3/uL (1.8-7.7) 06/06/23 10:33 Lymph # (Auto) 0.8 10^3/uL (0.8-4.8) 06/06/23 10:33 Yell # (Auto) 0.5 10^3/uL (0.2-0.9) 06/06/23 10:33 Eos # (Auto) 0.0 10^3/uL (0.0-0.8) 06/06/23 10:33 Baso # (Auto) 0.0 10^3/uL (0.0-0.1) 06/06/23 10:33 Nucleated RBC % (auto) 0 % 06/06/23 10:33 Nucleated RBCs # 0.0 /100WBC 06/06/23 10:33 PT 23.90 SECONDS (12.1-14.9) H 06/06/23 10:33 INR 2.05 (0.8-1.2) H 06/06/23 10:33 APTT 38.4 SECONDS (23.9-36.7) H 06/06/23 10:33 Sodium 140 mmol/L (136-145) 06/06/23 10:33 Potassium 3.4 mmol/L (3.5-5.1) L 06/06/23 10:33 Chloride 99 mmol/L (98-107) 06/06/23 10:33 Carbon Dioxide 23 mmol/L (22-29) 06/06/23 10:33 Anion Gap 21.4 (5-19) H 06/06/23 10:33 BUN 27 mg/dL (8-23) H 06/06/23 10:33 Creatinine 1.1 mg/dL (0.5-0.9) H 06/06/23 10:33 GFR Calculation 49.1 mL/min (90-130) L 06/06/23 10:33 Glucose 97 mg/dL (65-115) 06/06/23 10:33 Calculated Osmolality 295 mOsm/kg (285-295) 06/06/23 10:33 Calcium 9.5 mg/dL (8.5-10.5) 06/06/23 10:33 Total Bilirubin 1.2 mg/dL (0.15-1.2) 06/06/23 10:33 AST 54 U/L (0-32) H 06/06/23 10:33 ALT 23 U/L (0-33) 06/06/23 10:33 Alkaline Phosphatase 199 U/L (35-105) H 06/06/23 10:33 Troponin T Baseline 90 ng/L (0-10) H 06/06/23 10:33 Troponin T 120 Minute 78.23 ng/L (0-10) H 06/06/23 13:27 Delta Troponin T -11.77 ABS# (0-10) L 06/06/23 13:27 NT-Pro-B Natriuret Pep 20696 pg/mL (0-125) H 06/06/23 10:33 Total Protein 6.8 g/dL (6.6-8.7) 06/06/23 10:33 Albumin 4.0 g/dL (3.5-5.2) 06/06/23 10:33 Globulin 2.8 g/dL (1.3-4.6) 06/06/23 10:33 All radiology interpretation(s) finalized by discharge EKG Data EKG 1: I personally reviewed and interpreted this EKG as follows: EKG interpretation date: 06/06/23 EKG interpretation time: 12:02 Interpretation: paced hr [address] or t wave abnormalities qrs 168 qtc 523 Discharge Plan Discharge Patient Disposition: Home Clinical Impression: Dyspnea Congestive heart failure Qualifiers: Heart failure type: diastolic Heart failure chronicity: acute on chronic Q ualified Code(s): I50.33 - Acute on chronic diastolic (congestive) heart failure Condition: Stable Prescriptions: No Action multivitamin Tablet 1 tab PO QAM Tart Alonso Extract 1,000 mg capsule 1,000 mg PO BEDTIME lisinopril 10 mg tablet 10 mg PO DAILY Qty: 90 3RF Slow-Mag 71.5 mg tablet,delayed release (DR/EC) 71.5 mg PO BID Qty: 60 5RF allopurinol 100 mg tablet 400 mg PO DAILY Qty: 120 11RF albuterol sulfate 90 mcg/actuation HFA aerosol inhaler 2 puff INHALATION QID PRN (Reason: Shortness Of Breath) Qty: 6.7 0RF Nitrostat 0.4 mg tablet, sublingual 0.4 mg SUBLINGUAL Q5M PRN (Reason: Chest Pain) Qty: 30 2RF Rx Instructions: do not exceed 3 doses per episode atorvastatin 40 mg tablet 40 mg PO QAM Qty: 90 3RF clopidogrel 75 mg tablet 75 mg PO BEDTIME Qty: 90 3RF sertraline 100 mg tablet 100 mg PO QAM Qty: 90 3RF metoprolol tartrate 25 mg tablet 25 mg PO BID Qty: 120 3RF pregabalin [Lyrica] 75 mg capsule 75 mg PO BID Qty: 60 5RF alprazolam 0.5 mg Tablet 0.5 mg PO DAILY PRN (Reason: Anxiety) acetaminophen [Tylenol Arthritis Pain] 650 mg tablet extended release 1,300 mg PO BID glucosamine sulfate [Glucosamine] 500 mg Tablet 500 mg PO BID isosorbide mononitrate 60 mg tablet extended release 24 hr 60 mg PO BID potassium chloride 20 mEq tablet,ER particles/crystals 20 meq PO QAM pantoprazole 40 mg tablet,delayed release (DR/EC) 40 mg PO BID Vitamin C 500 mg Tablet See Rx Instructions .ROUTE .COMPLEX Rx Instructions: 500 mg orally ON TUESDAY-TUESDAY AND TUESDAY Iron (ferrous sulfate) 325 mg (65 mg iron) Tablet See Rx Instructions .ROUTE .COMPLEX Rx Instructions: 325 mg orally ON TUESDAY-TUESDAY AND TUESDAY Dulcolax (bisacodyl) 5 mg Tablet,Delayed Release (Dr/Ec) 5 mg PO DAILY furosemide 40 mg tablet 80 mg PO QAM omega-3 fatty acids 1,000 mg Capsule 1,000 mg PO DAILY Eliquis 5 mg tablet 5 mg PO BID Discharge Orders: Discharge ED (Routine); Ordered 06/06/23 Ordered By: Adelaide Lomeli Referrals: Derek Dowd DO [Primary Care Provider] - Kel Molina M.D [Physician] - 1-3 days Discharge Diet: Advance as tolerated Discharge Activity: Resume usual activity Patient Instructions: Heart Failure (ED) Coding Level of Care Code ED Plumbing And Heating Mechanic for Dario Guzman
[2023-06-06] MEDS: aspirin 81 mg Chew Tablet 324 MG PO (11:30)
--- NOTE | 2023-06-06 12:02 | ECG_ITS ---
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 Measurements Intervals [place] Rate: 71 P: 0 GA: 0 QRS: -68 QRSD: 168 T: 107 QT: 500 QTc: 546 Interpretive Statements ELECTRONIC VENTRICULAR PACEMAKER ABNORMAL RHYTHM ECG Compared to ECG 06/06/2023 09:25:36 No significant changes Electronically Signed On 06-06-2023 19:35:16 PAIL BAILER by Ghulam Allen M.D. [id number]
[2023-06-06] MEDS: FUROsemide 10 mg/mL SDV 10mL 60 MG IVP (13:23)
[2023-06-06 14:04] LABS: Troponin 5 2HR 78.23 ng/L (0-10)
[2023-06-06 14:29] VITALS: BP 170/98; PULSE 73; RESP 17; O2SAT 96
[2023-06-06 15:17] VITALS: BP 154/97; PULSE 71; O2SAT 97
== END 2023-06-06 15:18 | disposition home or self-care (01) ==
PROVIDERS: Internal Medicine; Emergency Provider Emergency Medicine; PCP Family Medicine
DX: R06.00 Dyspnea, unspecified (principal); Z79.02 Long term (current) use of antithrombotics/antiplatelets; Z79.01 Long term (current) use of anticoagulants; Z95.1 Presence of aortocoronary bypass graft; Z95.810 Presence of automatic (implantable) cardiac 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; I25.2 Old myocardial infarction; I13.0 Hypertensive heart and chronic kidney disease with heart failure and stage 1 through stage 4 chronic kidney disease, or unspecified chronic kidney disease; N18.30 Chronic kidney disease, stage 3 unspecified; I50.33 Acute on chronic diastolic (congestive) heart failure; E78.5 Hyperlipidemia, unspecified; I43 Cardiomyopathy in diseases classified elsewhere
CPT/HCPCS: 36415; 71045; 80053; 83880; 84484; 85025; 85610; 85730; 93005; 96374; 99285; J1940

== ENCOUNTER 2023-06-13 12:38 | Outpatient (CLI) | payer BC, MEDICARE, SELFPAY ==
--- NOTE | 2023-06-13 12:47 | US_ITS ---
WS: [id number] DIAGNOSTIC BILATERAL DIGITAL BREAST TOMOSYNTHESIS MAMMOGRAPHY WITH CAD Bilateral breast ultrasound, limited HISTORY: breast enlargement COMPARISON: 10/05/2017 TECHNIQUE: Bilateral craniocaudad, mediolateral oblique, and mediolateral views are submitted with to moslisa and SM. LEFT spot compression CC. Computer aided detection utilized. Breast composition: There are scattered areas of fibroglandular density. Bilateral marked trabecular thickening and marked skin thickening. Findings are most significant involving the LEFT breast. No fo karuna mass identified and no nipple retraction. These are new findings since the prior mammogram from 2 018. No adenopathy identified. Bilateral breast ultrasound, limited. There is significant skin thickening and edema identified surrounding the LEFT areola. Much more sign ificant as compared to the RIGHT. There is subcutaneous edema and also edema extending into the breas t parenchyma. There is no mass. Skin thickening on the LEFT measuring up to 5.0 mm. Skin thickening o n the RIGHT is 2.4 mm. IMPRESSION: US/US breast BI limited* [id number] BI-RADS: 4-Suspicious Finding-Biopsy Should Be Considered FOLLOW UP: See Report 1. There is bilateral trabecular thickening and overlying skin thickening with in each breast but much greater involving the LEFT breast. Suspect these findin gs are more likely related to a systemic process such as CHF or renal/heart robert lure. Less likely inflammatory breast cancer but that should be considered as a n etiology. 2. Consider punch biopsy of the soft tissue thickening within the LEFT breast. Most significant finding is around the areola.
--- NOTE | 2023-06-13 13:00 | MM_ITS ---
WS: [id number] DIAGNOSTIC BILATERAL DIGITAL BREAST TOMOSYNTHESIS MAMMOGRAPHY WITH CAD Bilateral breast ultrasound, limited HISTORY: breast enlargement COMPARISON: 10/05/2017 TECHNIQUE: Bilateral craniocaudad, mediolateral oblique, and mediolateral views are submitted with to moslisa and SM. LEFT spot compression CC. Computer aided detection utilized. Breast composition: There are scattered areas of fibroglandular density. Bilateral marked trabecular thickening and marked skin thickening. Findings are most significant involving the LEFT breast. No fo karuna mass identified and no nipple retraction. These are new findings since the prior mammogram from 2 018. No adenopathy identified. Bilateral breast ultrasound, limited. There is significant skin thickening and edema identified surrounding the LEFT areola. Much more sign ificant as compared to the RIGHT. There is subcutaneous edema and also edema extending into the breas t parenchyma. There is no mass. Skin thickening on the LEFT measuring up to 5.0 mm. Skin thickening o n the RIGHT is 2.4 mm. IMPRESSION: MM/[place] [id number] BI-RADS: 4-Suspicious Finding-Biopsy Should Be Considered FOLLOW UP: See Report 1. There is bilateral trabecular thickening and overlying skin thickening with in each breast but much greater involving the LEFT breast. Suspect these findin gs are more likely related to a systemic process such as CHF or renal/heart robert lure. Less likely inflammatory breast cancer but that should be considered as a n etiology. 2. Consider punch biopsy of the soft tissue thickening within the LEFT breast. Most significant finding is around the areola.
== END 2023-06-13 12:39 | disposition home or self-care (01) ==
LOC: RAD 12:40
PROVIDERS: PCP Family Medicine; Visit Provider Surgery
DX: N62 Hypertrophy of breast (principal); N64.59 Other signs and symptoms in breast; R92.323 Mammographic fibroglandular density, bilateral breasts; R23.4 Changes in skin texture
CPT/HCPCS: 76642; 77062; G0279

== ENCOUNTER → 2023-06-15 14:39 | Outpatient (BNVA) | payer BC, MEDICARE, SELFPAY | PROVIDERS: PCP Family Medicine; Visit Provider Internal Medicine | DX: I13.0 Hypertensive heart and chronic kidney disease with heart failure and stage 1 through stage 4 chronic kidney disease, or unspecified chronic kidney disease (principal); N18.30 Chronic kidney disease, stage 3 unspecified; I50.9 Heart failure, unspecified; I25.10 Atherosclerotic heart disease of native coronary artery without angina pectoris; Z95.1 Presence of aortocoronary bypass graft; E78.2 Mixed hyperlipidemia; I48.91 Unspecified atrial fibrillation; Z79.01 Long term (current) use of anticoagulants; Z95.810 Presence of automatic (implantable) cardiac 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 | CPT/HCPCS: 80048; 83880; 99214 ==

== ENCOUNTER 2023-06-21 12:37 | Outpatient (CLI) | payer BC, MEDICARE, SELFPAY ==
--- NOTE | 2023-06-21 13:00 | USCV_ITS ---
Essie Alejandre Age: 72 Gender: F : 1950 Exam Date: 06/21/2023 13:07 Ordering Phys: Kel Molina M.D ([email or web address]) Technologist: CRISTA Exam Location: [facility] [place] Indication: SOB BP: 158 / 98 HR: 0 Rhythm: Sinus Technical Quality: Adequate MEASUREMENTS (Male / Female) Normal Values 2D ECHO LVOT Diameter 1.9 cm Aorta at Sinotubular Diameter 2.1 cm IVC Diameter 2.8 cm DOPPLER AV Peak Velocity 178.0 cm/s AV Area Cont Eq vti 1.6 cm squared MV Area PHT 2.5 cm squared Mitral E to A Ratio 366.0 TV Peak Velocity 238.0 cm/s TR Peak Velocity 257.0 cm/s TR Peak Gradient 26.4 mmHg FINDINGS Left Ventricle Left ventricle is normal in size. LV systolic function is mildly reduced with EF of 40 to 45%. Mild global hypokinesis. Right Ventricle Grossly hypokinetic Right Atrium Normal in size. Pacemaker lead is seen Left Atrium Severely dilated Mitral Valve Structurally normal mitral valve. Mild mitral regurgitation. Aortic Valve Structurally normal aortic valve. No significant stenosis. Tricuspid Valve Mild tricuspid regurgitation. Pulmonary artery systolic pressure is normal. Pulmonic Valve Not well visualized. Mild pulmonic regurgitation Pericardium Normal Aorta Normal in size IVC Appear dilated CONCLUSIONS LV systolic function is mildly reduced with EF of 40 to 45%. Grossly hypokinetic Dilated left atrium Mild mitral regurgitation Mild tricuspid regurgitation Mild pulmonic regurgitation IVC appears dilated. Compared to prior echocardiogram from 09/2022, no significant changes are seen Kel Molina MD (Electronically Signed) Final Date: 30 June 2023 11:38 S
== END 2023-06-21 12:38 | disposition home or self-care (01) ==
LOC: RAD 12:38
PROVIDERS: PCP Family Medicine; Visit Provider Internal Medicine
DX: I08.8 Other rheumatic multiple valve diseases (principal)
CPT/HCPCS: 93306

== ENCOUNTER 2023-06-24 08:32 | Outpatient (CLI) | payer BC, MEDICARE, SELFPAY ==
[2023-06-24 08:49] VITALS: BMI 29.9
--- NOTE | 2023-06-24 08:52 | NMCV_ITS ---
NM shireen perf SPECT r/s* [id number] Essie Alejandre Age: 72 Gender: F : 1950 Exam Date: 06/24/2023 08:52 Ordering Phys: Kel Molina M.D ([email or web address]) Technologist: MARILYN Sneed Exam Location: [facility] Indications: CHEST PAIN STRESS TEST Please see separate stress test report in [facility] for full findings IMAGE PROTOCOL Rest/Stress 1 Lexiscan Day Radiopharmaceutical Dose (mCi) Administration Site Administered by Rest: Tc-99m 10.6 IV MARILYN Pozo Sestamibi Stress:Tc-99m 32.8 IV MARILYN Pozo Sestamibi Rest: 24-Jun-2023 60 Discovery 630 Stress: 24-Jun-2023 30 Discovery 630 0.4mg Lexiscan. Images obtained in supine and prone position. SPECT RESULTS Technical Quality: Excellent Raw Data Analysis: Normal Image Corrections: No attenuation or motion correction applied Summed Stress Score: 16 Summed Rest Score: 11 Summed Difference Score: 5 PERFUSION FINDINGS There is large sized area of fixed perfusion defect noted in the inferolateral and anterolateral kee. This is consistent with large area of prior infarct with no significant jodi-infarct ischemia in the left circumflex artery territory. Medium sized area of partially reversible perfusion defect is noted in the apical and anterior wall. This is consistent with medium sized area of prior infarct with small area of jodi-infarct ischemia in the LAD territory. Medium sized area of partially reversible perfusion defect noted in the inferior wall. This is consistent with medium sized area of prior infarct with small area of jodi-infarct ischemia in RCA territory. FUNCTIONAL RESULTS (calculated via Gated SPECT) Stress Image LV EF (%): 28 Stress EDV (mL):144 TID: 1.02 Stress ESV (mL):104 FUNCTIONAL FINDINGS: LV systolic function is severely reduced with EF of 28% IMPRESSIONS 1. Abnormal myocardial perfusion imaging with large area of prior infarct seen in left circumflex artery territory. 2. Medium sized areas of prior infarct with small areas of jodi-infarct ischemia are seen in RCA and LAD territories. 3. LV systolic function is severely reduced with EF of 28% Kel Molina MD (Electronically Signed) Final Date: 30 June 2023 11:51 S
--- NOTE | 2023-06-24 08:52 | ECG_ITS ---
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 Interpretive Statements NAME OF STUDY: LEXISCAN SESTAMIBI STRESS TEST INDICATION: [Chest Pain] Procedure: At the baseline, the blood pressure was 137/101 mmHg with a heart rate of 71 bpm. The electrocardiogram showed paced ventricular rhythm The Lexiscan was infused over a period of 20 seconds. A total of 0.4 mg of Lexiscan was infused. The stress phase was continued for a total of 5 minutes. Heart rate was at the end of stress phase was 71 bpm and a blood pressure of 138/91 mmHg. The EKG at the peak infusion revealed paced ryhthm with no significant ST-T wave changes. Sestamibi was injected 20 seconds after the Lexiscan infusion. Blood pressure at the end of recovery phase was 138/91 mmHg with a heart rate of 71 bpm. Conclusion: 1. Paced ventricular rhythm 2. No Lexiscan induced chest pain or cardiac arrhythmia. 3. Normal blood pressure and heart rate response. 4. Sestamibi/sestamibi perfusion scan pending; see separate report. Electronically Signed On 07-01-2023 12:19:34 JINRIKISHA DRIVER by Kel Molina M.D. [id number]
[2023-06-24] MEDS: regadenoson 0.4 Mg/5 ml Syringe 0.400000000000000022 MG IVP (10:04)
[2023-06-24 10:31] VITALS: BP 138/91; PULSE 70
== END 2023-06-24 08:33 | disposition home or self-care (01) ==
LOC: CDL 08:34
PROVIDERS: PCP Family Medicine; Visit Provider Internal Medicine
DX: R07.9 Chest pain, unspecified (principal); I25.2 Old myocardial infarction; R93.1 Abnormal findings on diagnostic imaging of heart and coronary circulation
CPT/HCPCS: 36415; 78452; 93017; 96374; A9500; J2785

== ENCOUNTER → 2023-06-30 10:06 | Outpatient (BNVA) | payer BC, MEDICARE, SELFPAY | PROVIDERS: PCP Family Medicine; Visit Provider Surgery | DX: Z86.010 Personal history of colon polyps (principal); R10.9 Unspecified abdominal pain; R11.14 Bilious vomiting; K21.9 Gastro-esophageal reflux disease without esophagitis; Z79.01 Long term (current) use of anticoagulants | CPT/HCPCS: 99214 ==

== ENCOUNTER → 2023-07-15 08:47 | Outpatient (BNVA) | payer BC, MEDICARE, SELFPAY | PROVIDERS: PCP Family Medicine; Referring Provider Internal Medicine; Visit Provider Specialist | DX: R25.1 Tremor, unspecified (principal); F03.A0 Unspecified dementia, mild, without behavioral disturbance, psychotic disturbance, mood disturbance, and anxiety | CPT/HCPCS: 99205 ==

== ENCOUNTER 2023-08-03 09:19 | Day surgery (SDC) | payer BC, MEDICARE, SELFPAY ==
[2023-08-03 09:31] VITALS: BP 120/79; PULSE 83; RESP 18; TEMP 36.6; O2SAT 96; BMI 26.6
[2023-08-03] MEDS: sodium chloride 0.9% 1,000 ML 30 ML IV (09:49)
--- NOTE | 2023-08-03 10:02 | ANES.PREANE2 ---
Pre-Anesthetic Assessment Height/Weight: Height 1.65 m Weight 72.575 kg Temp Pulse Resp BP Pulse Ox O2 Del Method 97.9 F 83 18 120/79 96 Room Air 08/03/23 09:31 08/03/23 09:31 08/03/23 09:31 08/03/23 09:31 08/03/23 09:31 08/03/23 09:31 Operation Date: 08/03/23 10:30 Proposed Procedures p [id number] egd [id number] colon G0105 screen colon H risk Z86.010, R10.9,R11.14,Z12.11(Not Applicable) - Fran Amaya DO s Colonoscopy(Not Applicable) - Fran Amaya DO Familial anesthetic complications: None Was Beta Misa taken within 24 hours: N/A Was Clonidine taken within 24 hours: N/A Last intake: Intake Last Liquid Date 08/02/23 Last Liquid Time 23:45 Last Solid Date 08/01/23 Social No alcohol and No tobacco Exam alert, oriented x 3, clear to auscultation bilaterally and regular rate & rhythm (Pace) Airway Submandibular: within normal limits Cervical ROM: within normal limits Mallampati: Class III Dentition: chipped and full Comments: Comments: Broken front tooth History/ROS No significant history except as noted and No significant complaints Pulmonary Exertional Dyspnea and Sleep Apnea CV/HEM Atrial Fibrillation, Anemia, Coronary Artery Disease, Congestive Heart Failure, Deep Vein Thrombosis, Hypertension, Myocardial Infarction (CABG x4 in 2001, 5+ stents) and Peripheral Vascular Disease Conclusion: 1. Paced ventricular rhythm 2. No Lexiscan induced chest pain or cardiac arrhythmia. 3. Normal blood pressure and heart rate response. 4. Sestamibi/sestamibi perfusion scan pending; see separate report. CONCLUSIONS LV systolic function is mildly reduced with EF of 40 to 45%. Grossly hypokinetic Dilated left atrium Mild mitral regurgitation Mild tricuspid regurgitation Mild pulmonic regurgitation IVC appears dilated. Compared to prior echocardiogram from 09/2022, no significant changes are seen Chronic Renal Insufficiency and Urinary Tract Infection Hepatic None reported GI Gastroesophageal Reflux Disease (Controlled with meds) Metabolic Hyperlipidemia Musc/skel Lower Back Pain and Osteoarthritis/DJD Neuropsych Anxiety, Depression and Transient Ischemic Attack Right sided weakness Anesthetic Plan ASA status: 4 Anesthesia: Anesthesia Evaluation, General and MAC Risk of > 500 ml blood loss (7ml/kg in children): No Medications/Allergies Home Medications Medication Instructions Recorded Confirmed Last Taken Type multivitamin 1 tab PO QAM 06/08/21 08/03/23 08/01/23 History sour alonso extract 1,000 mg 1,000 mg PO BEDTIME 06/23/21 08/03/23 07/31/23 History capsule (Tart Alonso Extract) omega-3 fatty acids 1,000 mg 1,000 mg PO DAILY 03/24/22 08/03/23 07/31/23 History capsule acetaminophen 650 mg 1,300 mg PO BID 09/17/22 08/03/23 08/01/23 History tablet,extended release (Tylenol Arthritis Pain) nitroglycerin 0.4 mg sublingual 0.4 mg sublingual Q5M PRN Chest 12/06/22 08/03/23 Unknown Rx tablet (Nitrostat) Pain #30 tabs atorvastatin 40 mg tablet 40 mg PO QAM #90 tabs 12/13/22 08/03/23 08/01/23 Rx sertraline 100 mg tablet 100 mg PO QAM #90 tabs 12/13/22 08/03/23 08/03/23 Rx glucosamine sulfate 500 mg tablet 500 mg PO BID 12/16/22 08/03/23 08/01/23 History (Glucosamine) magnesium chloride 71.5 mg 71.5 mg PO BID #60 tabs 04/18/23 08/03/23 08/01/23 Rx (magnesium chloride) tablet,delayed release (Slow-Mag) isosorbide mononitrate 60 mg 60 mg PO BID 04/23/23 08/03/23 08/01/23 History tablet,extended release 24 hr pantoprazole 40 mg tablet,delayed 40 mg PO BID 04/23/23 08/03/23 08/03/23 History release allopurinol 100 mg tablet 400 mg (4 x 100 mg) PO DAILY #120 04/27/23 08/03/23 08/03/23 Rx tabs lisinopril 10 mg tablet 10 mg PO DAILY #90 tabs 05/03/23 08/03/23 08/03/23 Rx ascorbic acid (vitamin C) 500 mg See Rx Instructions .Route .COMPLEX 06/06/23 08/03/23 08/01/23 History tablet (Vitamin C) bisacodyl 5 mg tablet,delayed 5 mg PO DAILY 06/06/23 08/03/23 08/01/23 History release (Dulcolax (bisacodyl)) ferrous sulfate 325 mg (65 mg See Rx Instructions .Route .COMPLEX 06/06/23 08/03/23 08/01/23 History iron) tablet (Iron (ferrous sulfate)) furosemide 40 mg tablet 80 mg PO QAM 06/06/23 08/03/23 08/01/23 History pregabalin 75 mg capsule (Lyrica) 75 mg PO BID #60 caps 06/27/23 08/03/23 08/01/23 Rx albuterol sulfate 90 mcg/actuation 2 puff inhalation QID PRN 06/29/23 08/03/23 Unknown Rx aerosol inhaler Shortness Of Breath #8.5 grams alprazolam 0.5 mg tablet 0.5 mg PO DAILY PRN Anxiety #20 06/29/23 08/03/23 Unknown Rx tabs galantamine 4 mg tablet 4 mg PO BID #60 tabs 07/15/23 08/03/23 08/01/23 Rx metoprolol tartrate 25 mg tablet 25 mg PO BID #120 tabs 07/19/23 08/03/23 08/03/23 Rx apixaban 5 mg tablet (Eliquis) 5 mg PO BID 08/01/23 08/03/23 07/29/23 History clopidogrel 75 mg tablet 75 mg PO BEDTIME 08/01/23 08/03/23 07/31/23 History doxycycline hyclate 100 mg capsule 100 mg PO DAILY PRN kidney 08/01/23 08/03/23 Unknown History infection potassium chloride 20 mEq 20 meq PO BID 08/01/23 08/03/23 08/01/23 History tablet,extended release(part/cryst) Allergies Allergy/AdvReac Type Severity Reaction Status Date / Time levofloxacin [From Levaquin] Allergy ALGY-Redness Verified 08/03/23 09:32 of Skin Sulfa (Sulfonamide Allergy hives Verified 08/03/23 09:32 Antibiotics) adhesive tape AdvReac Mild Unknown Verified 08/03/23 09:32 Current Medications Generic Name Dose Route Start Last Admin Trade Name Freq PRN Reason Stop Dose Admin Sodium Chloride 1,000 mls @ 30 mls/hr 08/03/23 09:30 08/03/23 09:49 Sodium Chloride 0.9% IV 08/04/23 09:29 30 mls/hr .Q24H JEREMY Administration PFSH Anesthesia Medical History Hearing loss associated with syndrome of both ears NSTEMI (non-ST elevated myocardial infarction) Elevated troponin I level Acute cystitis without hematuria Intracranial atherosclerosis Balance disorder Cognitive impairment Cardiac 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 therapy 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 (ASTHMA EDUCATOR-D) in place Recurrent UTI CKD (chronic kidney disease) stage 3, GFR 30-59 ml/min 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 GERD (gastroesophageal reflux disease) Hyperlipidemia Iron deficiency anemia Gout Sleep apnea Vertebral artery stenosis Left bundle branch block Right internal carotid artery aneurysm Vertebrobasilar insufficiency Atrial fibrillation PAD (peripheral artery disease) Renal artery stenosis Cardiomyopathy CHF (congestive heart failure) Anticoagulant long-term use BASIA (obstructive sleep apnea) HTN (hypertension) Chronic renal insufficiency, stage II (mild) Surgical History Hx of arthroscopy of right knee S/P appendectomy S/P section S/P hysterectomy Status post tubal ligation Status post aorto-coronary artery bypass graft S/P CABG (coronary artery bypass graft) S/P angioplasty with stent S/P ICD (internal cardiac 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) procedure H/O cardiac radiofrequency ablation Family History Father , AT AGE 65 Hyperlipidemia CAD (coronary artery disease) Hypertension Rheumatoid arthritis Mother , AT AGE 65 Hyperlipidemia CAD (coronary artery disease) Hypertension Diabetes Sister Hyperlipidemia CAD (coronary artery disease) Hypertension Diabetes Other Cancer Social History Smoking and tobacco/nicotine status: never used tobacco/nicotine Second hand smoke exposure: No Alcohol intake: never Substance/Drug Use: never Marital status: Current occupational status: retired Female Reproductive History Spontaneous abortions: No Data Anesthesia Cardiac Studies: Echocardiogram 06/21/23 Echocardiogram Limited Views 09/18/22 Transesophageal Echocardiogram 09/21/22 Sestamibi Stress Test (Cardiology) 06/24/23
--- NOTE | 2023-08-03 10:21 | PM.HP ---
Providers/Chief Complaint Primary Care Provider: Derek Dowd DO Chief Complaint: Z12.11 History of Present Illness Essie Alejandre is a 72 year old female Review of Systems General: Reports: 10 or more systems reviewed and unremarkable except in HPI and below Medications/Allergies Home Medications Medication Instructions Recorded Confirmed Last Taken Type multivitamin 1 tab PO QAM 06/08/21 08/03/23 08/01/23 History sour alonso extract 1,000 mg 1,000 mg PO BEDTIME 06/23/21 08/03/23 07/31/23 History capsule (Tart Alonso Extract) omega-3 fatty acids 1,000 mg 1,000 mg PO DAILY 03/24/22 08/03/23 07/31/23 History capsule acetaminophen 650 mg 1,300 mg PO BID 09/17/22 08/03/23 08/01/23 History tablet,extended release (Tylenol Arthritis Pain) nitroglycerin 0.4 mg sublingual 0.4 mg sublingual Q5M PRN Chest 12/06/22 08/03/23 Unknown Rx tablet (Nitrostat) Pain #30 tabs atorvastatin 40 mg tablet 40 mg PO QAM #90 tabs 12/13/22 08/03/23 08/01/23 Rx sertraline 100 mg tablet 100 mg PO QAM #90 tabs 12/13/22 08/03/23 08/03/23 Rx glucosamine sulfate 500 mg tablet 500 mg PO BID 12/16/22 08/03/23 08/01/23 History (Glucosamine) magnesium chloride 71.5 mg 71.5 mg PO BID #60 tabs 04/18/23 08/03/23 08/01/23 Rx (magnesium chloride) tablet,delayed release (Slow-Mag) isosorbide mononitrate 60 mg 60 mg PO BID 04/23/23 08/03/23 08/01/23 History tablet,extended release 24 hr pantoprazole 40 mg tablet,delayed 40 mg PO BID 04/23/23 08/03/23 08/03/23 History release allopurinol 100 mg tablet 400 mg (4 x 100 mg) PO DAILY #120 04/27/23 08/03/23 08/03/23 Rx tabs lisinopril 10 mg tablet 10 mg PO DAILY #90 tabs 05/03/23 08/03/23 08/03/23 Rx ascorbic acid (vitamin C) 500 mg See Rx Instructions .Route .COMPLEX 06/06/23 08/03/23 08/01/23 History tablet (Vitamin C) bisacodyl 5 mg tablet,delayed 5 mg PO DAILY 06/06/23 08/03/23 08/01/23 History release (Dulcolax (bisacodyl)) ferrous sulfate 325 mg (65 mg See Rx Instructions .Route .COMPLEX 06/06/23 08/03/23 08/01/23 History iron) tablet (Iron (ferrous sulfate)) furosemide 40 mg tablet 80 mg PO QAM 06/06/23 08/03/23 08/01/23 History pregabalin 75 mg capsule (Lyrica) 75 mg PO BID #60 caps 06/27/23 08/03/23 08/01/23 Rx albuterol sulfate 90 mcg/actuation 2 puff inhalation QID PRN 06/29/23 08/03/23 Unknown Rx aerosol inhaler Shortness Of Breath #8.5 grams alprazolam 0.5 mg tablet 0.5 mg PO DAILY PRN Anxiety #20 06/29/23 08/03/23 Unknown Rx tabs galantamine 4 mg tablet 4 mg PO BID #60 tabs 07/15/23 08/03/23 08/01/23 Rx metoprolol tartrate 25 mg tablet 25 mg PO BID #120 tabs 07/19/23 08/03/23 08/03/23 Rx apixaban 5 mg tablet (Eliquis) 5 mg PO BID 08/01/23 08/03/23 07/29/23 History clopidogrel 75 mg tablet 75 mg PO BEDTIME 08/01/23 08/03/23 07/31/23 History doxycycline hyclate 100 mg capsule 100 mg PO DAILY PRN kidney 08/01/23 08/03/23 Unknown History infection potassium chloride 20 mEq 20 meq PO BID 08/01/23 08/03/23 08/01/23 History tablet,extended release(part/cryst) Allergies Allergy/AdvReac Type Severity Reaction Status Date / Time levofloxacin [From Levaquin] Allergy ALGY-Redness Verified 08/03/23 09:32 of Skin Sulfa (Sulfonamide Allergy hives Verified 08/03/23 09:32 Antibiotics) adhesive tape AdvReac Mild Unknown Verified 08/03/23 09:32 PFSH Acute PFSH: Medical History Hearing loss associated with syndrome of both ears NSTEMI (non-ST elevated myocardial infarction) Elevated troponin I level Acute cystitis without hematuria Intracranial atherosclerosis Balance disorder Cognitive impairment Cardiac 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 therapy 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 (FIRER POWERHOUSE-D) in place Recurrent UTI CKD (chronic kidney disease) stage 3, GFR 30-59 ml/min 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 GERD (gastroesophageal reflux disease) Hyperlipidemia Iron deficiency anemia Gout Sleep apnea Vertebral artery stenosis Left bundle branch block Right internal carotid artery aneurysm Vertebrobasilar insufficiency Atrial fibrillation PAD (peripheral artery disease) Renal artery stenosis Cardiomyopathy CHF (congestive heart failure) Anticoagulant long-term use BASIA (obstructive sleep apnea) HTN (hypertension) Chronic renal insufficiency, stage II (mild) Surgical History Hx of arthroscopy of right knee S/P appendectomy S/P section S/P hysterectomy Status post tubal ligation Status post aorto-coronary artery bypass graft S/P CABG (coronary artery bypass graft) S/P angioplasty with stent S/P ICD (internal cardiac 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) procedure H/O cardiac radiofrequency ablation Family History Father , AT AGE 65 Hyperlipidemia CAD (coronary artery disease) Hypertension Rheumatoid arthritis Mother , AT AGE 65 Hyperlipidemia CAD (coronary artery disease) Hypertension Diabetes Sister Hyperlipidemia CAD (coronary artery disease) Hypertension Diabetes Other Cancer Social History Smoking and tobacco/nicotine status: never used tobacco/nicotine Second hand smoke exposure: No Alcohol intake: never Substance/Drug Use: never Marital status: Current occupational status: retired Female Reproductive History: Spontaneous abortions: No Vitals/I&O/Wt Last Vital Signs Temp 97.9 F 08/03/23 09:31 Pulse 83 08/03/23 09:31 Resp 18 08/03/23 09:31 BP 120/79 08/03/23 09:31 Pulse Ox 96 08/03/23 09:31 O2 Del Method Room Air 08/03/23 09:31 Weight last 48 hrs Weight 160 lb A&P Assessment and plan (1) GERD (gastroesophageal reflux disease): (2) Colon cancer screening: (3) Abdominal pain: Plan EGD and colonoscopy Attestations Medical Necessity Statement*: Home Coding Level of Care Code Acute Code for Chg Fwd Diagnoses GERD (gastroesophageal reflux disease) K21.9 Colon cancer screening Z12.11 Abdominal pain R10.9
[2023-08-03 10:50] VITALS: BP 107/57; PULSE 72; RESP 12; TEMP 36.2; O2SAT 99
[2023-08-03 11:01] VITALS: BP 123/59; PULSE 72; RESP 14; O2SAT 96
--- NOTE | 2023-08-03 11:40 | ANE.PACU2 ---
Inpatient post-anesthesia follow up: Airway intact: Yes Vital signs: Temperature 97.2 F Pulse Rate 72 Respiratory Rate 14 Blood Pressure 123/59 Pulse Oximetry 96 Oxygen Delivery Me thod Room Air Oxygen Flow Rate Fraction of Inspir ed Oxygen Hydration adequate: Yes Nausea and vomiting: No Pain level: 1 Mental status: Baseline
== END 2023-08-03 11:40 | disposition home or self-care (01) ==
PROVIDERS: PCP Family Medicine; Visit Provider Surgery
PROC: 0DJ08ZZ Inspection of Upper Intestinal Tract, Via Natural or Artificial Opening Endoscopic (ICD-10-PCS; CPT 43235; principal; 2023-08-03 10:30)
PROC: 0DJD8ZZ Inspection of Lower Intestinal Tract, Via Natural or Artificial Opening Endoscopic (ICD-10-PCS; CPT 45378; 2023-08-03 10:30)
DX: Z12.11 Encounter for screening for malignant neoplasm of colon (principal); I25.2 Old myocardial infarction; I13.0 Hypertensive heart and chronic kidney disease with heart failure and stage 1 through stage 4 chronic kidney disease, or unspecified chronic kidney disease; N18.30 Chronic kidney disease, stage 3 unspecified; I50.9 Heart failure, unspecified; E78.5 Hyperlipidemia, unspecified; I48.91 Unspecified atrial fibrillation; G47.33 Obstructive sleep apnea (adult) (pediatric); I25.10 Atherosclerotic heart disease of native coronary artery without angina pectoris; Z86.718 Personal history of other venous thrombosis and embolism; Z95.1 Presence of aortocoronary bypass graft
CPT/HCPCS: 43239; 43255; 88305; G0121; J2704; J7030

== ENCOUNTER 2023-08-25 05:40 | Day surgery (SDC) | payer BC, MEDICARE, SELFPAY ==
[2023-08-25] VITALS (7 sets, daily range): BP systolic 111–128; BP diastolic 53–81; PULSE 73–84; RESP 18; TEMP 36.3–36.6; O2SAT 90–100; BMI 28.3
--- NOTE | 2023-08-25 05:59 | PM.HP ---
Providers/Chief Complaint Primary Care Provider: Derek Dowd DO Chief Complaint: K80.50 History of Present Illness Essie Alejandre is a 72 year old female Review of Systems General: Reports: 10 or more systems reviewed and unremarkable except in HPI and below Medications/Allergies Home Medications Medication Instructions Recorded Confirmed Last Taken Type multivitamin 1 tab PO QAM 06/08/21 08/24/23 08/24/23 History sour alonso extract 1,000 mg 1,000 mg PO BEDTIME 06/23/21 08/24/23 08/24/23 History capsule (Tart Alonso Extract) omega-3 fatty acids 1,000 mg 1,000 mg PO DAILY 03/24/22 08/24/23 08/24/23 History capsule acetaminophen 650 mg 1,300 mg PO BID 09/17/22 08/24/23 08/24/23 History tablet,extended release (Tylenol Arthritis Pain) nitroglycerin 0.4 mg sublingual 0.4 mg sublingual Q5M PRN Chest 12/06/22 08/24/23 Unknown Rx tablet (Nitrostat) Pain #30 tabs atorvastatin 40 mg tablet 40 mg PO QAM #90 tabs 12/13/22 08/24/23 08/24/23 Rx sertraline 100 mg tablet 100 mg PO QAM #90 tabs 12/13/22 08/24/23 08/24/23 Rx glucosamine sulfate 500 mg tablet 500 mg PO BID 12/16/22 08/24/23 08/24/23 History (Glucosamine) magnesium chloride 71.5 mg 71.5 mg PO BID #60 tabs 04/18/23 08/24/23 08/01/23 Rx (magnesium chloride) tablet,delayed release (Slow-Mag) isosorbide mononitrate 60 mg 60 mg PO BID 04/23/23 08/24/23 08/25/23 History tablet,extended release 24 hr pantoprazole 40 mg tablet,delayed 40 mg PO BID 04/23/23 08/24/23 08/24/23 History release allopurinol 100 mg tablet 400 mg (4 x 100 mg) PO DAILY #120 04/27/23 08/24/23 08/24/23 Rx tabs lisinopril 10 mg tablet 10 mg PO DAILY #90 tabs 05/03/23 08/24/23 08/24/23 Rx ascorbic acid (vitamin C) 500 mg See Rx Instructions .Route .COMPLEX 06/06/23 08/24/23 08/24/23 History tablet (Vitamin C) bisacodyl 5 mg tablet,delayed 5 mg PO DAILY 06/06/23 08/24/23 08/24/23 History release (Dulcolax (bisacodyl)) ferrous sulfate 325 mg (65 mg See Rx Instructions .Route .COMPLEX 06/06/23 08/24/23 08/24/23 History iron) tablet (Iron (ferrous sulfate)) furosemide 40 mg tablet 80 mg PO QAM 06/06/23 08/24/23 08/24/23 History albuterol sulfate 90 mcg/actuation 2 puff inhalation QID PRN 06/29/23 08/25/23 08/25/23 Rx aerosol inhaler Shortness Of Breath #8.5 grams alprazolam 0.5 mg tablet 0.5 mg PO DAILY PRN Anxiety #20 06/29/23 08/24/23 Unknown Rx tabs galantamine 4 mg tablet 4 mg PO BID #60 tabs 07/15/23 08/03/23 08/01/23 Rx metoprolol tartrate 25 mg tablet 25 mg PO BID #120 tabs 07/19/23 08/24/23 08/24/23 Rx apixaban 5 mg tablet (Eliquis) 5 mg PO BID 08/01/23 08/24/23 08/20/23 History clopidogrel 75 mg tablet 75 mg PO BEDTIME 08/01/23 08/24/23 08/20/23 History doxycycline hyclate 100 mg capsule 100 mg PO DAILY PRN kidney 08/01/23 08/24/23 Unknown History infection potassium chloride 20 mEq 20 meq PO BID 08/01/23 08/24/23 08/24/23 History tablet,extended release(part/cryst) Allergies Allergy/AdvReac Type Severity Reaction Status Date / Time levofloxacin [From Levaquin] Allergy ALGY-Redness Verified 08/03/23 09:32 of Skin Sulfa (Sulfonamide Allergy hives Verified 08/03/23 09:32 Antibiotics) adhesive tape AdvReac Mild Unknown Verified 08/03/23 09:32 PFSH Acute PFSH: Medical History Hearing loss associated with syndrome of both ears NSTEMI (non-ST elevated myocardial infarction) Elevated troponin I level Acute cystitis without hematuria Intracranial atherosclerosis Balance disorder Cognitive impairment Cardiac 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 therapy 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 (RETORT KILN BURNER-D) in place Recurrent UTI CKD (chronic kidney disease) stage 3, GFR 30-59 ml/min 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 GERD (gastroesophageal reflux disease) Hyperlipidemia Iron deficiency anemia Gout Sleep apnea Vertebral artery stenosis Left bundle branch block Right internal carotid artery aneurysm Vertebrobasilar insufficiency Atrial fibrillation PAD (peripheral artery disease) Renal artery stenosis Cardiomyopathy CHF (congestive heart failure) Anticoagulant long-term use BASIA (obstructive sleep apnea) HTN (hypertension) Chronic renal insufficiency, stage II (mild) Surgical History Hx of arthroscopy of right knee S/P appendectomy S/P section S/P hysterectomy Status post tubal ligation Status post aorto-coronary artery bypass graft S/P CABG (coronary artery bypass graft) S/P angioplasty with stent S/P ICD (internal cardiac 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) procedure H/O cardiac radiofrequency ablation Family History Father , AT AGE 65 Hyperlipidemia CAD (coronary artery disease) Hypertension Rheumatoid arthritis Mother , AT AGE 65 Hyperlipidemia CAD (coronary artery disease) Hypertension Diabetes Sister Hyperlipidemia CAD (coronary artery disease) Hypertension Diabetes Other Cancer Social History Smoking and tobacco/nicotine status: never used tobacco/nicotine Second hand smoke exposure: No Alcohol intake: never Substance/Drug Use: never Marital status: Current occupational status: retired Female Reproductive History: Spontaneous abortions: No A&P Assessment and plan (1) Biliary colic: Also has biliary hyperkinesia Plan Laparoscopic cholecystectomy The risks and benefits of the procedure, including but not limited to, bleeding, infection, scar, numbness, pain, damage to surrounding structures, damage to common bile duct requiring additional surgery, conversion to an open procedure, possibility that cholecystectomy does not relieve all of her symptoms, were explained to the patient. He is understanding of the risks and wishes to proceed. Attestations Medical Necessity Statement*: Home Coding Level of Care Code Acute Code for [facility] Diagnoses Biliary colic K80.50
[2023-08-25] MEDS: sodium chloride 0.9% 1,000 ML 30 ML IV (06:30)
--- NOTE | 2023-08-25 06:43 | P.ANESASSM_ITS ---
Pre-Anesthetic Assessment Height/Weight: Height 1.65 m Weight 77.111 kg Temp Pulse Resp BP Pulse Ox O2 Del Method 97.8 F 84 18 121/72 94 Room Air 08/25/23 05:59 08/25/23 05:59 08/25/23 05:59 08/25/23 05:59 08/25/23 05:59 08/25/23 06:08 Operation Date: 08/25/23 07:00 Proposed Procedures p Laparoscopic Cholecystectomy(Not Applicable) - Fran Amaya DO Last intake: Intake Last Liquid Date 08/24/23 Last Liquid Time 23:55 Last Solid Date 08/24/23 Last Solid Time 17:00 Social No alcohol and No tobacco Exam alert, oriented x 3, clear to auscultation bilaterally and regular rate & rhythm Airway Submandibular: within normal limits Cervical ROM: within normal limits Mallampati: Class I Pulmonary None reported CV/HEM Coronary Artery Disease and Congestive Heart Failure pacer defib Chronic Renal Insufficiency Hepatic None reported Anesthetic Plan ASA status: 3 Anesthesia: General Other: recent negative cardiac stress with echo that showed LVEF 40-45% Medications/Allergies Home Medications Medication Instructions Recorded Confirmed Last Taken Type multivitamin 1 tab PO QAM 06/08/21 08/24/23 08/24/23 History sour alonso extract 1,000 mg 1,000 mg PO BEDTIME 06/23/21 08/24/23 08/24/23 History capsule (Tart Alonso Extract) omega-3 fatty acids 1,000 mg 1,000 mg PO DAILY 03/24/22 08/24/23 08/24/23 History capsule acetaminophen 650 mg 1,300 mg PO BID 09/17/22 08/24/23 08/24/23 History tablet,extended release (Tylenol Arthritis Pain) nitroglycerin 0.4 mg sublingual 0.4 mg sublingual Q5M PRN Chest 12/06/22 08/24/23 Unknown Rx tablet (Nitrostat) Pain #30 tabs atorvastatin 40 mg tablet 40 mg PO QAM #90 tabs 12/13/22 08/24/23 08/24/23 Rx sertraline 100 mg tablet 100 mg PO QAM #90 tabs 12/13/22 08/24/23 08/24/23 Rx glucosamine sulfate 500 mg tablet 500 mg PO BID 12/16/22 08/24/23 08/24/23 History (Glucosamine) magnesium chloride 71.5 mg 71.5 mg PO BID #60 tabs 04/18/23 08/24/23 08/01/23 Rx (magnesium chloride) tablet,delayed release (Slow-Mag) isosorbide mononitrate 60 mg 60 mg PO BID 04/23/23 08/24/23 08/25/23 History tablet,extended release 24 hr pantoprazole 40 mg tablet,delayed 40 mg PO BID 04/23/23 08/24/23 08/24/23 History release allopurinol 100 mg tablet 400 mg (4 x 100 mg) PO DAILY #120 04/27/23 08/24/23 08/24/23 Rx tabs lisinopril 10 mg tablet 10 mg PO DAILY #90 tabs 05/03/23 08/24/23 08/24/23 Rx ascorbic acid (vitamin C) 500 mg See Rx Instructions .Route .COMPLEX 06/06/23 08/24/23 08/24/23 History tablet (Vitamin C) bisacodyl 5 mg tablet,delayed 5 mg PO DAILY 06/06/23 08/24/23 08/24/23 History release (Dulcolax (bisacodyl)) ferrous sulfate 325 mg (65 mg See Rx Instructions .Route .COMPLEX 06/06/23 08/24/23 08/24/23 History iron) tablet (Iron (ferrous sulfate)) furosemide 40 mg tablet 80 mg PO QAM 06/06/23 08/24/23 08/24/23 History albuterol sulfate 90 mcg/actuation 2 puff inhalation QID PRN 06/29/23 08/25/23 08/25/23 Rx aerosol inhaler Shortness Of Breath #8.5 grams alprazolam 0.5 mg tablet 0.5 mg PO DAILY PRN Anxiety #20 06/29/23 08/24/23 Unknown Rx tabs galantamine 4 mg tablet 4 mg PO BID #60 tabs 07/15/23 08/03/23 08/01/23 Rx metoprolol tartrate 25 mg tablet 25 mg PO BID #120 tabs 07/19/23 08/24/23 08/24/23 Rx apixaban 5 mg tablet (Eliquis) 5 mg PO BID 08/01/23 08/24/23 08/20/23 History clopidogrel 75 mg tablet 75 mg PO BEDTIME 08/01/23 08/24/23 08/20/23 History doxycycline hyclate 100 mg capsule 100 mg PO DAILY PRN kidney 08/01/23 08/24/23 Unknown History infection potassium chloride 20 mEq 20 meq PO BID 08/01/23 08/24/23 08/24/23 History tablet,extended release(part/cryst) Allergies Allergy/AdvReac Type Severity Reaction Status Date / Time levofloxacin [From Levaquin] Allergy ALGY-Redness Verified 08/03/23 09:32 of Skin Sulfa (Sulfonamide Allergy hives Verified 08/03/23 09:32 Antibiotics) adhesive tape AdvReac Mild Unknown Verified 08/03/23 09:32 [facility] Anesthesia Medical History Hearing loss associated with syndrome of both ears NSTEMI (non-ST elevated myocardial infarction) Elevated troponin I level Acute cystitis without hematuria Intracranial atherosclerosis Balance disorder Cognitive impairment Cardiac 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 therapy 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 (FORENSIC SPECIALIST-D) in place Recurrent UTI CKD (chronic kidney disease) stage 3, GFR 30-59 ml/min 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 GERD (gastroesophageal reflux disease) Hyperlipidemia Iron deficiency anemia Gout Sleep apnea Vertebral artery stenosis Left bundle branch block Right internal carotid artery aneurysm Vertebrobasilar insufficiency Atrial fibrillation PAD (peripheral artery disease) Renal artery stenosis Cardiomyopathy CHF (congestive heart failure) Anticoagulant long-term use BASIA (obstructive sleep apnea) HTN (hypertension) Chronic renal insufficiency, stage II (mild) Surgical History Hx of arthroscopy of right knee S/P appendectomy S/P section S/P hysterectomy Status post tubal ligation Status post aorto-coronary artery bypass graft S/P CABG (coronary artery bypass graft) S/P angioplasty with stent S/P ICD (internal cardiac 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) procedure H/O cardiac radiofrequency ablation Family History Father , AT AGE 65 Hyperlipidemia CAD (coronary artery disease) Hypertension Rheumatoid arthritis Mother , AT AGE 65 Hyperlipidemia CAD (coronary artery disease) Hypertension Diabetes Sister Hyperlipidemia CAD (coronary artery disease) Hypertension Diabetes Other Cancer Social History Smoking and tobacco/nicotine status: never used tobacco/nicotine Second hand smoke exposure: No Alcohol intake: never Substance/Drug Use: never Marital status: Current occupational status: retired Female Reproductive History Spontaneous abortions: No Data Anesthesia 08/25/23 06:29 08/25/23 06:29 Cardiac Studies: 2 Echocardiogram 06/21/23 Echocardiogram Limited Views 09/18/22 Transesophageal Echocardiogram 09/21/22 Sestamibi Stress Test (Cardiology) 06/24
[2023-08-25 06:45] LABS: Basophils # 0.1 10^3/uL (0.0-0.1); Basophils % 0.7 %; Eosinophils # 0.1 10^3/uL (0.0-0.8); Eosinophils % 2.1 %; Hematocrit 34.1 % (36-47); Lymphocytes # 1.3 10^3/uL (0.8-4.8); Lymphocytes % 19.2 %; Mean Corpuscular HGB Conc 31.7 g/dL (30-55); Mean Corpuscular Hemoglobin 31.5 pg (27-33); Mean Corpuscular Volume 99.4 fl (85-98); Mean Platelet Volume 9.8 fL (7.4-10.4); Monocytes # 0.6 10^3/uL (0.2-0.9); Monocytes % 9.6 %; Neutrophils # 4.55 10^3/uL (1.8-7.7); Neutrophils % 68.1 %; Nucleated Red Blood Cells % 0 %; Platelet Count 151 10^3/cmm (157-399); Red Blood Count 3.43 10^6/uL (3.85-5.65); Red Cell Distribution Width 18.9 % (12.1-15.1); White Blood Count 6.68 10^3/uL (3.29-11.43)
[2023-08-25 06:59] LABS: Anion Gap 17.1 (5-19); Blood Urea Nitrogen 34 mg/dL (8-23); Carbon Dioxide 26 mmol/L (22-29); Chloride 102 mmol/L (98-107); Creatinine Clr Calc Pharmacy 48.8654; Glomerular Filtration Rate 49.1 mL/min (90-130); Glucose 107 mg/dL (65-115); Osmolality Calculated 302 mOsm/kg (285-295); Potassium 3.1 mmol/L (3.5-5.1); Sodium 142 mmol/L (136-145)
[2023-08-25] MEDS: ceFAZolin 2,000 MG in sodium chloride 0.9% (plus) 50 ML 100 MG IV (07:00)
[2023-08-25] MEDS: lidocaine-epi 2% PF 1:200,000 20 mL SDV XX (07:33)
--- NOTE | 2023-08-25 07:55 | P.OP_ITS ---
Operative Report Date of procedure: August 25, 2023 Surgeon: Fran Amaya DO Brief History: Patient presented to my office with abdominal pain. She was diagnosed with biliary colic and biliary hyperkinesia. Laparoscopic cholecystectomy is indicated. The risk and benefits were explained and documented. Procedure: Preoperative diagnosis: Biliary colic, biliary hyperkinesia Postoperative diagnosis: Same Procedure performed: Laparoscopic cholecystectomy Surgeon: Dr. Fran Amaya DO Estimated blood loss: 20 mL Specimens: Gallbladder to pathology Findings: There was ascites in the abdomen Complications: None apparent Description of procedure: Patient was wheeled into the operative room and placed on the OR table in a supine position. Abdomen was inspected prepped and draped in usual sterile fashion. Time-out was performed and all present were in agreement. A 15 blade scalp was used to make a stab incision in the left upper quadrant and intra- abdominal insufflation was achieved using a Veress needle. After localizing the tissue incisions were made and a 5 millimeter trocar was placed into the umbilicus as well as 2 in the right upper quadrant. A 12 millimeter trocar was placed in the epigastrium. Gallbladder was grasped and elevated. The triangle of Calot was carefully dissected using blunt dissection and electrocautery until the triangle of Calot clearly identified. The cystic duct was clipped proximally and double clipped distally. The duct was then ligated proximally. The cystic artery was doubly clipped and ligated. The gallbladder was then removed from the liver bed using electrocautery. The gallbladder was removed from the abdomen using an Endo-Catch bag through the epigastric incision. The liver bed was inspected and no bleeding was seen. The abdomen was irrigated and suctioned. All ports removed. Skin was washed and dried. Incisions were closed with 4-0 Monocryl in a subcuticular interrupted fashion. Skin glue was applied. Patient tolerated the procedure well.
--- NOTE | 2023-08-25 13:56 | ANE.PACU2 ---
Inpatient post-anesthesia follow up: Vital signs: Temperature 97.3 F Pulse Rate 76 Respiratory Rate 18 Blood Pressure 112/81 Pulse Oximetry 90 Oxygen Delivery Me thod Room Air Oxygen Flow Rate 6 Fraction of Inspir ed Oxygen Hydration adequate: Yes Nausea and vomiting: No Mental status: Baseline Additional Comments: no apparent anesthetic complications noted
== END 2023-08-25 09:35 | disposition home or self-care (01) ==
PROVIDERS: Anesthesiology; PCP Family Medicine; Visit Provider Surgery
PROC: 0FT44ZZ Resection of Gallbladder, Percutaneous Endoscopic Approach (ICD-10-PCS; CPT 47562; principal; 2023-08-25 07:00)
DX: K80.10 Calculus of gallbladder with chronic cholecystitis without obstruction (principal); I25.10 Atherosclerotic heart disease of native coronary artery without angina pectoris; I11.0 Hypertensive heart disease with heart failure; I50.9 Heart failure, unspecified; Z95.0 Presence of cardiac pacemaker; I25.2 Old myocardial infarction; N18.30 Chronic kidney disease, stage 3 unspecified; E78.5 Hyperlipidemia, unspecified; I48.91 Unspecified atrial fibrillation; G47.33 Obstructive sleep apnea (adult) (pediatric)
CPT/HCPCS: 47562; 36415; 80048; 85025; 88304; J0690; J1100; J1885; J2405; J2704; J2710; J3010; J3490; J7030

== ENCOUNTER 2023-08-30 11:09 | Observation (INO) | payer BC, MEDICARE, SELFPAY ==
[2023-08-30] VITALS (10 sets, daily range): BP systolic 112–144; BP diastolic 63–91; PULSE 70–85; RESP 16–18; TEMP 36.6–37; O2SAT 93–99; BMI 31.2; BMI 30.8
--- NOTE | 2023-08-30 11:19 | CT_ITS ---
WS: [id number] CT ABDOMEN AND PELVIS NONCONTRAST HISTORY: Abdominal pain. TECHNIQUE: Imaging performed through the abdomen and pelvis. Coronal and sagittal reformats are submi tted. All CT scans at [facility] use at least one of these dose optimization techniques: auto mated exposure control; mA and/or kV adjustment per patient size (includes targeted exams where dose is matched to clinical indication); or iterative reconstruction. DLP: 897.83 mGy.cm COMPARISON: 04/23/2023 Lower thorax: Moderately enlarged heart. Sternotomy and 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 wires are noted. Subsegmental a telectasis at the LEFT lung base. Small hiatal hernia. Liver: Normal size liver. No mass or bile duct dilatation. Gallbladder: Gallbladder has been recently removed. There is a tiny amount of air in the gallbladder fossa. There are adjacent clips. No developing fluid collection in the gallbladder fossa. The bile du ct appears appropriate. Pancreas: Normal size and attenuation. Normal pancreatic duct. No pancreatitis or mass. Spleen: Normal. Adrenal glands: Normal. No mass. Right kidney: Marked atrophy of the RIGHT kidney. No change. Left kidney: Normal size LEFT kidney with no obstruction. Aorta: Mild atherosclerosis abdominal aorta with no aneurysm. Heavy calcification into the iliac maurice ziggy. Small amount of free fluid in the pelvis. Free fluid is also noted on the prior CT from 04/23/2023. N o focal collections. There is mild mesenteric edema. No free air. No adenopathy. GI tract: Stomach is not distended. No small bowel obstruction. No colon obstruction. Scattered diver ticular disease in the sigmoid. Abdominal wall: Small ventral abdominal wall hernia. There is marked soft tissue anasarca throughout the abdomen and pelvis which is new since 04/23/2023. Pelvis: Free fluid in the pelvis. Urinary bladder is minimally distended. Prior hysterectomy. Osseous structures: Degenerative changes in the visualized thoracic and lumbar spines. IMPRESSION: 1. Status post recent cholecystectomy. 2. There is a tiny amount of air in the gallbladder fossa which may be appropriate for the recent ch olecystectomy. Surgical clips are also identified. There is no focal collection noted. 3. Extensive soft tissue anasarca throughout the abdomen and pelvis. 4. Mesenteric edema and a small amount of free fluid in the pelvis. Notified Vincent Tate DO at 08/30/2023 12:49 PM.
--- NOTE | 2023-08-30 11:19 | ECG_ITS ---
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 Measurements Intervals [place] Rate: 82 P: 0 OH: 0 QRS: -62 QRSD: 165 T: 115 QT: 463 QTc: 543 Interpretive Statements ELECTRONIC VENTRICULAR PACEMAKER ABNORMAL RHYTHM ECG Compared to ECG 06/06/2023 12:02:33 No significant changes Electronically Signed On 08-30-2023 21:41:06 CDT by Ghulam Allen M.D. [email or web address]
--- NOTE | 2023-08-30 11:19 | XRR_ITS ---
PROCEDURE INFORMATION: Exam: XR Chest Exam date and time: 08/30/2023 11:44 AM Age: 73 years old Clinical indication: Cough and dyspnea; Patient HX: AMS; Additional info: Dyspnea/cough TECHNIQUE: Imaging protocol: Radiologic exam of the chest. Views: 1 view. COMPARISON: CR XR chest 1V portable [id number] 06/06/2023 10:06 AM FINDINGS: Tubes, catheters and devices: Cardiac device left anterior chest Lungs: Unremarkable. No consolidation. Pleural spaces: Unremarkable. No pleural effusion. No pneumothorax. Heart/Mediastinum: Unremarkable. No cardiomegaly. Bones/joints: Metallic sternotomy wires are seen. XR/XR chest 1V portable [id number] IMPRESSION: 1. No acute findings. 2. Metallic sternotomy wires are present. 3. Cardiac device left anterior chest
--- NOTE | 2023-08-30 11:19 | CT_ITS ---
WS: [id number] CT HEAD NONCONTRAST HISTORY: ataxia TECHNIQUE: Contiguous axial imaging performed through the brain in 3.0 mm imaging. Bone and soft tiss ue windows. Sagittal and coronal reformats reviewed. All CT scans at [facility] use at least one of these dose optimization techniques: automated exposure control; mA and/or kV adjustment per pa tient size (includes targeted exams where dose is matched to clinical indication); or iterative recon struction. DLP: 1045.89 mGy.cm COMPARISON: 02/07/2022 No acute intracranial hemorrhage, midline shift or mass effect. Moderate atrophy. Symmetric frontal and temporal lobe atrophy. No acute infarcts. There is mild small vessel ischemic type disease. Small lacunar infarct external capsule on the LEFT. Ventricles: Normal size with no hydrocephalus. No inferior displacement of the cerebellar tonsils. Paranasal sinuses: As visualized are clear. Mastoid air cells: Well pneumatized. Calvarium and scalp: Skull is intact with no soft tissue edema or swelling. IMPRESSION: 1. No acute intracranial hemorrhage or edema. 2. Moderate atrophy predominant involving the frontal and temporal lobes. Mild small vessel ischemic disease. Remote lacunar infarct LEFT external capsule.
--- NOTE | 2023-08-30 11:21 | ED_ITS ---
HPI - General Adult 2 General: Chief complaint: Dizziness Stated complaint: stroke like symptoms Time Seen by Provider: 08/30/23 11:12 Source: patient Mode of arrival: ambulatory History of Present Illness: 73-year-old female presents emergency ro om complaining of generalized weakness difficulty walking. She had gallbladder surgery on 418 laparoscopic procedure she said since then she is felt like she has had has been a fog she does not any balance, her legs feel weak. She has a history of a previous stroke. She is also feeling some continued abdominal discomfort. No fever sweats chills no vomiting or diarrhea no dysuria urgency or frequency. She has noticed increased swelling and shortness of breath. Associated symptoms: Deny chest pain, dyspnea or rash Review of Systems 2 Const: Denies: fever(s) or chills Card: Denies: chest pain Resp: Denies: dyspnea GI: Denies: abdominal pain : Denies: dysuria, urinary frequency or urinary urgency Musc: Denies: neck pain or back pain Skin/Breast: Denies: rash PFSH ED 2 PFSH: Medical History Poor venous access Hearing loss associated with syndrome of both ears NSTEMI (non-ST elevated myocardial infarction) Elevated troponin I level Acute cystitis without hematuria Intracranial atherosclerosis Balance disorder Cognitive impairment Cardiac 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 therapy 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 (COAL HAULER OPERATOR-D) in place Recurrent UTI CKD (chronic kidney disease) stage 3, GFR 30-59 ml/min 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 GERD (gastroesophageal reflux disease) Hyperlipidemia Iron deficiency anemia Gout Sleep apnea Vertebral artery stenosis Left bundle branch block Right internal carotid artery aneurysm Vertebrobasilar insufficiency Atrial fibrillation PAD (peripheral artery disease) Renal artery stenosis Cardiomyopathy CHF (congestive heart failure) Anticoagulant long-term use BASIA (obstructive sleep apnea) HTN (hypertension) Chronic renal insufficiency, stage II (mild) Surgical History Status post cholecystectomy Hx of arthroscopy of right knee S/P appendectomy S/P section S/P hysterectomy Status post tubal ligation Status post aorto-coronary artery bypass graft S/P CABG (coronary artery bypass graft) S/P angioplasty with stent S/P ICD (internal cardiac 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) procedure H/O cardiac radiofrequency ablation Family History Father , AT AGE 65 Hyperlipidemia CAD (coronary artery disease) Hypertension Rheumatoid arthritis Mother , AT AGE 65 Hyperlipidemia CAD (coronary artery disease) Hypertension Diabetes Sister Hyperlipidemia CAD (coronary artery disease) Hypertension Diabetes Other Cancer Social History Smoking and tobacco/nicotine status: never used tobacco/nicotine Second hand smoke exposure: No Alcohol intake: never Substance/Drug Use: never Marital status: Current occupational status: retired Female Reproductive History: Spontaneous abortions: No Physical Exam 2 Narrative: EXAM NARRATIVE: 73-year-old female who presents to the e mergency room with complaints of generally not feeling well and having weakness and ataxia difficulty with balance this has been going on since she had a cholecystectomy 5 days ago she states since she got home she has been weak and having difficulty with balance. She is also been increasingly short of breath noticed more swelling. Const: COMMON NORMALS: no acute distress GENERAL APPEARANCE: cooperative and comfortable ORIENTATION/CONSCIOUSNESS: Yes awake, Yes oriented to person, Yes oriented to place and Yes oriented to time HENMT: COMMON NORMALS: normocephalic, atraumatic and hearing grossly normal bilaterally HEAD & SCALP: normocephalic and atraumatic Resp: COMMON NORMALS: normal respiratory effort, No retractions, No use of accessory muscles and clear to auscultation bilaterally AUSCULTATION: clear to auscultation bilaterally Cardio: COMMON NORMALS: regular rate, regular rhythm and No murmurs present (Cardio) RATE: regular rate RHYTHM: regular rhythm GI: COMMON NORMALS: Soft to palpation and No hepatosplenomegaly present A USCULTATION: Yes normoactive bowel sounds PALPATION: Yes Soft to palpation, No Tenderness to palpation present (GI), No Guarding due to palpation present (GI) and Yes No hepatosplenomegaly present Extremity: COMMON NORMALS: normal to inspection, capillary refill normal, no clubbing, cyanosis or edema, no calf tenderness and no pedal edema Neuro: SENSORIUM/ORIENTATION: Yes oriented to person, Yes oriented to place and Yes oriented to time Skin: COMMON NORMALS: no rashes or lesions noted GENERAL SKIN EXAM: no rashes or lesions noted Procedures EJ/Peripheral Line Neck R: Time Out Performed: Yes Skin Cleansed in Sterile Fashion: Yes Size (gauge): 18 IV Secured and Dressing Applied: Yes Patient Tolerated Procedure: well Additional Comments: Initial attempt right EJ. Patient was uncomfortable and the IV blew as the catheter was advanced over the needle. That site was abandoned the skin overlying the IJ was anesthetized and cleansed with ChloraPrep. 18-gauge placed without difficulty under ultrasound guidance secured which a loop and flushed Course 2 Vital Signs: Vital signs: Vital Signs Temperature 99.2 F 08/31/23 08:00 Pulse Rate 71 08/31/23 12:30 Respiratory Rate 23 H 08/31/23 12:30 Blood Pressure 120/56 08/31/23 12:40 Pulse Oximetry 94 08/31/23 12:05 Oxygen Delivery Me thod Room Air 08/31/23 09:47 MDM - General Adult Medical Decision Making Patient appears to be fluid overloaded. We had a very difficult time getting IV access ultimately an IJ was placed under ultrasound guidance. Patient is having some mild anemia as well. BNP elevated at 5075 increased cardiomegaly. Discussed with hospitalist orders written Lasix ordered. Patient given 80 of IV Lasix in the emergency room. Medical Records I reviewed the patient's medical records. Lab Data I reviewed the patient's lab results. 08/31/23 03:05 08/31/23 03:05 Radiology Impressions Chest X-Ray 08/30/23 11:19 IMPRESSION: 1. No acute findings. 2. Metallic sternotomy wires are present. 3. Cardiac device left anterior chest Laboratory Results WBC 7.35 10^3/uL (3.29-11.43) 08/30/23 12:00 RBC 3.44 10^6/uL (3.85-5.65) L 08/30/23 12:00 Hgb 10.90 g/dL (11.27-16.99) L 08/30/23 12:00 Hct 35.0 % (36-47) L 08/30/23 12:00 MCV 101.7 fl (85-98) H 08/30/23 12:00 MCH 31.7 pg (27-33) 08/30/23 12:00 MCHC 31.1 g/dL (30-55) 08/30/23 12:00 RDW 18.7 % (12.1-15.1) H 08/30/23 12:00 Plt Count 238 10^3/cmm (157-399) 08/30/23 12:00 MPV 11.5 fL (7.4-10.4) H 08/30/23 12:00 Neut % (Auto) 70.7 % 08/30/23 12:00 Lymph % (Auto) 12.5 % 08/30/23 12:00 [place] % (Auto) 8.7 % 08/30/23 12:00 Eos % (Auto) 7.3 % 08/30/23 12:00 Baso % (Auto) 0.4 % 08/30/23 12:00 Neut # (Auto) 5.19 10^3/uL (1.8-7.7) 08/30/23 12:00 Lymph # (Auto) 0.9 10^3/uL (0.8-4.8) 08/30/23 12:00 [place] # (Auto) 0.6 10^3/uL (0.2-0.9) 08/30/23 12:00 Eos # (Auto) 0.5 10^3/uL (0.0-0.8) 08/30/23 12:00 Baso # (Auto) 0.0 10^3/uL (0.0-0.1) 08/30/23 12:00 Nucleated RBC % (auto) 0 % 08/30/23 12:00 Nucleated RBCs # 0.0 /100WBC 08/30/23 12:00 Sodium 138 mmol/L (136-145) 08/30/23 11:40 Potassium 3.7 mmol/L (3.5-5.1) 08/30/23 11:40 Chloride 102 mmol/L (98-107) 08/30/23 11:40 Carbon Dioxide 24 mmol/L (22-29) 08/30/23 11:40 Anion Gap 15.7 (5-19) 08/30/23 11:40 BUN 48 mg/dL (8-23) H 08/30/23 11:40 Creatinine 1.1 mg/dL (0.5-0.9) H 08/30/23 11:40 GFR Calculation Not Reportable 08/30/23 11:40 Glucose 97 mg/dL (65-115) 08/30/23 11:40 Estimat Average Glucose 105 08/30/23 11:40 Hemoglobin A1c 5.3 % (4.0-6.0) 08/30/23 11:40 Calculated Osmolality 299 mOsm/kg (285-295) H 08/30/23 11:40 Calcium 9.3 mg/dL (8.5-10.5) 08/30/23 11:40 Total Bilirubin 1.1 mg/dL (0.15-1.2) 08/30/23 11:40 AST 50 U/L (0-32) H 08/30/23 11:40 ALT 19 U/L (0-33) 08/30/23 11:40 Alkaline Phosphatase 307 U/L (35-105) H 08/30/23 11:40 NT-Pro-B Natriuret Pep 5075 pg/mL (0-125) H 08/30/23 11:40 Total Protein 7.0 g/dL (6.6-8.7) 08/30/23 11:40 Albumin 3.7 g/dL (3.5-5.2) 08/30/23 11:40 Globulin 3.3 g/dL (1.3-4.6) 08/30/23 11:40 Triglycerides 77 mg/dL (0-150) 08/30/23 11:40 Cholesterol 154 mg/dL (0-200) 08/30/23 11:40 LDL Cholesterol, Calc 73 mg/dL (50-129) 08/30/23 11:40 HDL Cholesterol 66 mg/dL (60-100) 08/30/23 11:40 LDL/HDL Ratio 1.11 RATIO (0.00-3.22) 08/30/23 11:40 Cholesterol/HDL Ratio 2.33 mg/dL (0.0-4.40) 08/30/23 11:40 Vitamin B12 955 pg/mL (232-1245) 08/30/23 11:40 TSH 4.78 uIU/mL (0.27-4.20) H 08/30/23 11:40 Urine Color Yellow (Yellow) 08/30/23 12:23 Urine Appearance Sl hazy (CLEAR) A 08/30/23 12:23 Urine pH 5 (5-7) 08/30/23 12:23 Ur Specific [place] 1.010 (1.005-1.030) 08/30/23 12:23 Urine Protein Neg (Negative) 08/30/23 12:23 Urine Glucose (UA) Norm (Normal) 08/30/23 12:23 Urine Ketones Negative (Negative) 08/30/23 12:23 Urine Blood Neg (Negative) 08/30/23 12:23 Urine Nitrate Negative (Negative) 08/30/23 12:23 Urine Bilirubin Neg (Negative) 08/30/23 12:23 Urine Urobilinogen Norm mg/dL (Negative) 08/30/23 12:23 Ur Leukocyte Esterase Negative (Negative) 08/30/23 12:23 Urine RBC None /hpf (0-2) 08/30/23 12:23 Urine WBC 0-4 /hpf (0-5) H 08/30/23 12:23 Ur Squamous Epith Cells 0-4 /hpf (0-5) H 08/30/23 12:23 Amorphous Sediment Not Reportable 08/30/23 12:23 Urine Bacteria 3+ /hpf (NONE) H 08/30/23 12:23 All radiology interpretation(s) finalized by discharge Discharge Plan Discharge Patient Disposition: Placed in Observation Admit Provider: Ying Forman Clinical Impression: Congestive heart failure, Atrial fibrillation, Anemia, CKD (chronic kidney disease) stage 3, GFR 30-59 ml/min, CVA (cerebral vascular accident) Condition: Stable Discharge Diet: Cardiac Discharge Activity: Resume usual activity and Use walker/crutches as instructed Coding Level of Care Code ED Adjunct Teacher for Dario Guzman NIH stroke score NIHSS Level Of Consciousness - 1a: 0 Level Of Consciousness Questions - 1b: Both Correct Level Of Consciousness Commands - 1c: Both Correct Best Gaze - 2: Normal Visual Ta - 3: No Visual Loss Facial Palsy - 4: Normal Motor Arm Right - 5: No Drift Motor Arm Left - 5: No Drift Motor Leg Right - 6: No Drift Motor Leg Left - 6: No Drift Limb Ataxia - 7: Absent Sensory - 8: Normal Best Language - 9: No Aphasia Dysarthia - 10: Mild/Moderate Dysarthia Extinction And Inattention - 11: 0 Score Total Score: 1
[2023-08-30 12:05] LABS: Alanine Aminotransferase 19 U/L (0-33); Albumin Level 3.7 g/dL (3.5-5.2); Alkaline Phosphatase 307 U/L (35-105); Anion Gap 15.7 (5-19); Aspartate Amino Transferase 50 U/L (0-32); Blood Urea Nitrogen 48 mg/dL (8-23); Calcium 9.3 mg/dL (8.5-10.5); Carbon Dioxide 24 mmol/L (22-29); Chloride 102 mmol/L (98-107); Creatinine Clr Calc Pharmacy 50.5856; Globulin 3.3 g/dL (1.3-4.6); Glucose 97 mg/dL (65-115); Osmolality Calculated 299 mOsm/kg (285-295); Potassium 3.7 mmol/L (3.5-5.1); Sodium 138 mmol/L (136-145); Total Bilirubin 1.1 mg/dL (0.15-1.2)
[2023-08-30 12:12] LABS: Basophils % 0.4 %; Eosinophils # 0.5 10^3/uL (0.0-0.8); Eosinophils % 7.3 %; Lymphocytes # 0.9 10^3/uL (0.8-4.8); Lymphocytes % 12.5 %; Mean Corpuscular HGB Conc 31.1 g/dL (30-55); Mean Corpuscular Hemoglobin 31.7 pg (27-33); Mean Corpuscular Volume 101.7 fl (85-98); Mean Platelet Volume 11.5 fL (7.4-10.4); Monocytes # 0.6 10^3/uL (0.2-0.9); Monocytes % 8.7 %; Neutrophils # 5.19 10^3/uL (1.8-7.7); Neutrophils % 70.7 %; Nucleated Red Blood Cells % 0 %; Platelet Count 238 10^3/cmm (157-399); Red Blood Count 3.44 10^6/uL (3.85-5.65); Red Cell Distribution Width 18.7 % (12.1-15.1); White Blood Count 7.35 10^3/uL (3.29-11.43)
[2023-08-30 12:49] LABS: Add Urine Microscopic? YES; Bilirubin Urine Neg (Negative); Blood Urine Neg (Negative); Glucose Urine UA Norm (Normal); Ketones Urine Negative (Negative); Leukocyte Esterase Urine Negative (Negative); Nitrate Urine Negative (Negative); Protein Urine Neg (Negative); Urine Appearance SL Hazy (CLEAR); Urine Color Yellow (Yellow); Urobilinogen Urine Norm (Negative); pH Urine 5 (5-7)
[2023-08-30 12:59] LABS: Bacteria Urine 3+ /hpf; Squamous Epithelial Cell Urine 0-4 /hpf (0-5); WBC Urine 0-4 /hpf (0-5)
[2023-08-30 13:00] LABS: Add Urine Culture? No
[2023-08-30 13:31] LABS: NT Pro B Type Natriuretic Pept 5075 pg/mL (0-125)
[2023-08-30] MEDS: sodium chloride 0.9% 1,000 ML 999 ML IV (13:32)
--- NOTE | 2023-08-30 15:34 | P.HP_ITS ---
Providers/Chief Complaint 2 Admitting Physician: Ying Forman MD Primary Care Provider: Derek Dowd DO Chief Complaint: stroke like symptoms History of Present Illness Essie Alejandre is a 73 year old female Medications/Allergies Home Medications Medication Instructions Recorded Confirmed Last Taken Type multivitamin 1 tab PO QAM 06/08/21 08/24/23 08/24/23 History sour alonso extract 1,000 mg 1,000 mg PO BEDTIME 06/23/21 08/24/23 08/24/23 History capsule (Tart Alonso Extract) omega-3 fatty acids 1,000 mg 1,000 mg PO DAILY 03/24/22 08/24/23 08/24/23 History capsule acetaminophen 650 mg 1,300 mg PO BID 09/17/22 08/24/23 08/24/23 History tablet,extended release (Tylenol Arthritis Pain) nitroglycerin 0.4 mg sublingual 0.4 mg sublingual Q5M PRN Chest 12/06/22 08/24/23 Unknown Rx tablet (Nitrostat) Pain #30 tabs atorvastatin 40 mg tablet 40 mg PO QAM #90 tabs 12/13/22 08/24/23 08/24/23 Rx sertraline 100 mg tablet 100 mg PO QAM #90 tabs 12/13/22 08/24/23 08/24/23 Rx glucosamine sulfate 500 mg tablet 500 mg PO BID 12/16/22 08/24/23 08/24/23 History (Glucosamine) magnesium chloride 71.5 mg 71.5 mg PO BID #60 tabs 04/18/23 08/24/23 08/01/23 Rx (magnesium chloride) tablet,delayed release (Slow-Mag) isosorbide mononitrate 60 mg 60 mg PO BID 04/23/23 08/24/23 08/25/23 History tablet,extended release 24 hr pantoprazole 40 mg tablet,delayed 40 mg PO BID 04/23/23 08/24/23 08/24/23 History release allopurinol 100 mg tablet 400 mg (4 x 100 mg) PO DAILY #120 04/27/23 08/24/23 08/24/23 Rx tabs lisinopril 10 mg tablet 10 mg PO DAILY #90 tabs 05/03/23 08/24/23 08/24/23 Rx ascorbic acid (vitamin C) 500 mg See Rx Instructions .Route .COMPLEX 06/06/23 08/24/23 08/24/23 History tablet (Vitamin C) bisacodyl 5 mg tablet,delayed 5 mg PO DAILY 06/06/23 08/24/23 08/24/23 History release (Dulcolax (bisacodyl)) ferrous sulfate 325 mg (65 mg See Rx Instructions .Route .COMPLEX 06/06/23 08/24/23 08/24/23 History iron) tablet (Iron (ferrous sulfate)) furosemide 40 mg tablet 80 mg PO QAM 06/06/23 08/24/23 08/24/23 History albuterol sulfate 90 mcg/actuation 2 puff inhalation QID PRN 06/29/23 08/25/23 08/25/23 Rx aerosol inhaler Shortness Of Breath #8.5 grams alprazolam 0.5 mg tablet 0.5 mg PO DAILY PRN Anxiety #20 06/29/23 08/24/23 Unknown Rx tabs galantamine 4 mg tablet 4 mg PO BID #60 tabs 07/15/23 08/03/23 08/01/23 Rx metoprolol tartrate 25 mg tablet 25 mg PO BID #120 tabs 07/19/23 08/24/23 08/24/23 Rx apixaban 5 mg tablet (Eliquis) 5 mg PO BID 08/01/23 08/24/23 08/20/23 History clopidogrel 75 mg tablet 75 mg PO BEDTIME 08/01/23 08/24/23 08/20/23 History doxycycline hyclate 100 mg capsule 100 mg PO DAILY PRN kidney 08/01/23 08/24/23 Unknown History infection potassium chloride 20 mEq 20 meq PO BID 08/01/23 08/24/23 08/24/23 History tablet,extended release(part/cryst) docusate sodium 100 mg capsule 100 mg PO BID #14 caps 08/25/23 Unknown Rx (Colace) hydrocodone 7.5 mg-acetaminophen 1 tab PO Q6H PRN pain #20 tabs 08/25/23 Unknown Rx 325 mg tablet polyethylene glycol 3350 17 17 g PO DAILY 6 days #119 grams 08/25/23 Unknown Rx gram/dose oral powder (Miralax) Allergies Allergy/AdvReac Type Severity Reaction Status Date / Time levofloxacin [From Levaquin] Allergy ALGY-Redness Verified 08/30/23 11:18 of Skin Sulfa (Sulfonamide Allergy hives Verified 08/30/23 11:18 Antibiotics) adhesive tape AdvReac Mild Unknown Verified 08/30/23 11:18 PFSH Acute 2 PFSH: Medical History Hearing loss associated with syndrome of both ears NSTEMI (non-ST elevated myocardial infarction) Elevated troponin I level Acute cystitis without hematuria Intracranial atherosclerosis Balance disorder Cognitive impairment Cardiac 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 therapy 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 (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) in 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 Recurrent UTI CKD (chronic kidney disease) stage 3, GFR 30-59 ml/min 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 GERD (gastroesophageal reflux disease) Hyperlipidemia Iron deficiency anemia Gout Sleep apnea Vertebral artery stenosis Left bundle branch block Right internal carotid artery aneurysm Vertebrobasilar insufficiency Atrial fibrillation PAD (peripheral artery disease) Renal artery stenosis Cardiomyopathy CHF (congestive heart failure) Anticoagulant long-term use BASIA (obstructive sleep apnea) HTN (hypertension) Chronic renal insufficiency, stage II (mild) Surgical History Hx of arthroscopy of right knee S/P appendectomy S/P section S/P hysterectomy Status post tubal ligation Status post aorto-coronary artery bypass graft S/P CABG (coronary artery bypass graft) S/P angioplasty with stent S/P ICD (internal cardiac 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) procedure H/O cardiac radiofrequency ablation Family History Father , AT AGE 65 Hyperlipidemia CAD (coronary artery disease) Hypertension Rheumatoid arthritis Mother , AT AGE 65 Hyperlipidemia CAD (coronary artery disease) Hypertension Diabetes Sister Hyperlipidemia CAD (coronary artery disease) Hypertension Diabetes Other Cancer Social History Smoking and tobacco/nicotine status: never used tobacco/nicotine Second hand smoke exposure: No Alcohol intake: never Substance/Drug Use: never Marital status: Current occupational status: retired Female Reproductive History: Spontaneous abortions: No Vitals/I&O/Wt Last Vital Signs Pulse 81 08/30/23 14:58 Resp 18 08/30/23 14:58 BP 128/68 08/30/23 11:12 Pulse Ox 99 08/30/23 14:58 O2 Del Method Room Air 08/30/23 14:58 Weight last 48 hrs Weight 85.275 kg Physical Exam 2 Urinary Catheter Management: Estes: Cath Placed During This Visit: yes Urinary Catheter Date of Insertion: 08/30/23 Urinary Catheter Time of Insertion: 15:34 Data 08/30/23 12:00 08/30/23 11:40 Coding Level of Care Code Acute Code for Chg Fwd
[2023-08-30 16:15] LABS: Chol HDL Ratio 2.33 mg/dL (0.0-4.40); Cholesterol 154 mg/dL (0-200); HDL Cholesterol 66 mg/dL (60-100); LDL Cholesterol Calculated 73 mg/dL (50-129); LDL HDL Ratio 1.11 RATIO (0.00-3.22); Thyroid Stimulating Hormone 4.78 uIU/mL (0.27-4.20); Triglycerides 77 mg/dL (0-150)
--- NOTE | 2023-08-30 16:36 | PC.NURSE ---
LASIX NOT GIVEN IN ER DUE TO DIFFICULTIES IN OBTAINING IV. NURSE CALLED [facility] IN [facility] AND EXPLAINED IV DIFFICULTY AND REORDERED FOR CSU STAFF TO ADMIN.
[2023-08-30] MEDS: FUROsemide 10 mg/mL SDV 10mL 80 MG IVP (18:37)
[2023-08-30] MEDS: isosorbide mononitrate ER 60 mg Tablet PO (18:37)
[2023-08-30] MEDS: apixaban 5 mg Tablet PO (18:37)
--- NOTE | 2023-08-30 20:02 | PC.NURSE ---
Informed Dr Forman of inability to obtain CTA of head/neck due to current IV access located in the right EJ. Also patient passed bedside swallow eval without any difficulty. Received instructions to allow patient to eat tonight. Informed patient and family of dilemma. Both verbalized complete understanding.
[2023-08-30] MEDS: clopidogrel 75 mg Tablet PO (20:17)
--- NOTE | 2023-08-30 20:29 | PM.HP ---
Providers/Chief Complaint Admitting Physician: Ying Forman MD Primary Care Provider: Derek Dowd DO Chief Complaint: stroke like symptoms History of Present Illness Essie Alejandre is a 73 year old female with history of chronic dizziness, A-fib not continuing anticoagulation for risk of falls, follows up with neurologist at [place], pacemaker, at risk of falls, recently had gallbladder surgery since then has not been feeling well, present to the hospital for chief complaint of lower extremity weakness. was concerned about stroke. At the time of evaluation patient is eating fast food, she is able to maneuver at her ankle joint, she does not have typical stroke related symptoms, she is stating that she is under investigation by a neurologist in [place] for her chronic issues and they were told that there is some basilar artery lack of blood flow causing the symptoms but low extremity weakness has gotten worse that prompted her visit to the hospital. She does not want to go to rehab or alf, stating that she is okay with availing home health services. Recently she has not noticed any chest pain, shortness of breath, facial droop, hallucinations, fever or diarrhea or signs of UTI. She is not sure about her B12 level or hemoglobin A1c. She is not diabetic. Her BNP is extremely high on BMP done in the ER, TSH is slightly abnormal as well Review of Systems Const: Denies: fever(s) Eyes: Denies: change in vision ENMT: Denies: throat pain Card: Denies: chest pain Resp: Denies: dyspnea GI: Denies: abdominal pain : Denies: flank pain Musc: Reports: extremity pain Skin/Breast: Denies: rash Medications/Allergies Home Medications Medication Instructions Recorded Confirmed Last Taken Type multivitamin 1 tab PO QAM 06/08/21 08/30/23 08/30/23 History sour alonso extract 1,000 mg 1,000 mg PO BEDTIME 06/23/21 08/30/23 08/29/23 History capsule (Tart Alonso Extract) omega-3 fatty acids 1,000 mg 1,000 mg PO DAILY 03/24/22 08/30/23 08/30/23 History capsule acetaminophen 650 mg 1,300 mg PO BID 09/17/22 08/30/23 08/30/23 08:00 History tablet,extended release (Tylenol Arthritis Pain) nitroglycerin 0.4 mg sublingual 0.4 mg sublingual Q5M PRN Chest 12/06/22 08/30/23 Unknown Rx tablet (Nitrostat) Pain #30 tabs atorvastatin 40 mg tablet 40 mg PO QAM #90 tabs 12/13/22 08/30/23 08/30/23 Rx sertraline 100 mg tablet 100 mg PO QAM #90 tabs 12/13/22 08/30/23 08/30/23 Rx glucosamine sulfate 500 mg tablet 500 mg PO BID 12/16/22 08/30/23 08/24/23 History (Glucosamine) magnesium chloride 71.5 mg 71.5 mg PO BID #60 tabs 04/18/23 08/30/23 08/30/23 Rx (magnesium chloride) tablet,delayed release (Slow-Mag) isosorbide mononitrate 60 mg 60 mg PO BID 04/23/23 08/30/23 08/30/23 18:59 History tablet,extended release 24 hr pantoprazole 40 mg tablet,delayed 40 mg PO BID 04/23/23 08/30/23 08/30/23 History release allopurinol 100 mg tablet 400 mg (4 x 100 mg) PO DAILY #120 04/27/23 08/30/23 08/29/23 Rx tabs lisinopril 10 mg tablet 10 mg PO DAILY #90 tabs 05/03/23 08/30/23 08/30/23 08:00 Rx ascorbic acid (vitamin C) 500 mg See Rx Instructions .Route .COMPLEX 06/06/23 08/30/23 08/29/23 History tablet (Vitamin C) bisacodyl 5 mg tablet,delayed 5 mg PO DAILY 06/06/23 08/30/23 08/24/23 History release (Dulcolax (bisacodyl)) ferrous sulfate 325 mg (65 mg See Rx Instructions .Route .COMPLEX 06/06/23 08/30/23 08/30/23 History iron) tablet (Iron (ferrous sulfate)) furosemide 40 mg tablet 80 mg PO QAM 06/06/23 08/30/23 08/30/23 18:59 History albuterol sulfate 90 mcg/actuation 2 puff inhalation QID PRN 06/29/23 08/30/23 08/30/23 Rx aerosol inhaler Shortness Of Breath #8.5 grams alprazolam 0.5 mg tablet 0.5 mg PO DAILY PRN Anxiety #20 06/29/23 08/30/23 08/29/23 Rx tabs galantamine 4 mg tablet 4 mg PO BID #60 tabs 07/15/23 08/30/23 08/29/23 Rx metoprolol tartrate 25 mg tablet 25 mg PO BID #120 tabs 07/19/23 08/30/23 08/30/23 Rx apixaban 5 mg tablet (Eliquis) 5 mg PO BID 08/01/23 08/30/23 08/30/23 18:56 History clopidogrel 75 mg tablet 75 mg PO BEDTIME 08/01/23 08/30/23 08/30/23 History doxycycline hyclate 100 mg capsule 100 mg PO DAILY PRN kidney 08/01/23 08/30/23 08/30/23 History infection potassium chloride 20 mEq 20 meq PO BID 08/01/23 08/30/23 08/30/23 History tablet,extended release(part/cryst) docusate sodium 100 mg capsule 100 mg PO BID #14 caps 08/25/23 08/30/23 08/30/23 Rx (Colace) hydrocodone 7.5 mg-acetaminophen 1 tab PO Q6H PRN pain #20 tabs 08/25/23 08/30/23 08/29/23 Rx 325 mg tablet polyethylene glycol 3350 17 17 g PO DAILY 6 days #119 grams 08/25/23 08/30/23 08/30/23 Rx gram/dose oral powder (Miralax) Allergies Allergy/AdvReac Type Severity Reaction Status Date / Time levofloxacin [From Levaquin] Allergy ALGY-Redness Verified 08/30/23 11:18 of Skin Sulfa (Sulfonamide Allergy hives Verified 08/30/23 11:18 Antibiotics) adhesive tape AdvReac Mild Unknown Verified 08/30/23 11:18 PFSH Acute PFSH: Medical History Hearing loss associated with syndrome of both ears NSTEMI (non-ST elevated myocardial infarction) Elevated troponin I level Acute cystitis without hematuria Intracranial atherosclerosis Balance disorder Cognitive impairment Cardiac 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 therapy 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 ([employer]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 Recurrent UTI CKD (chronic kidney disease) stage 3, GFR 30-59 ml/min 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 GERD (gastroesophageal reflux disease) Hyperlipidemia Iron deficiency anemia Gout Sleep apnea Vertebral artery stenosis Left bundle branch block Right internal carotid artery aneurysm Vertebrobasilar insufficiency Atrial fibrillation PAD (peripheral artery disease) Renal artery stenosis Cardiomyopathy CHF (congestive heart failure) Anticoagulant long-term use BASIA (obstructive sleep apnea) HTN (hypertension) Chronic renal insufficiency, stage II (mild) Surgical History Hx of arthroscopy of right knee S/P appendectomy S/P section S/P hysterectomy Status post tubal ligation Status post aorto-coronary artery bypass graft S/P CABG (coronary artery bypass graft) S/P angioplasty with stent S/P ICD (internal cardiac 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) procedure H/O cardiac radiofrequency ablation Family History Father , AT AGE 65 Hyperlipidemia CAD (coronary artery disease) Hypertension Rheumatoid arthritis Mother , AT AGE 65 Hyperlipidemia CAD (coronary artery disease) Hypertension Diabetes Sister Hyperlipidemia CAD (coronary artery disease) Hypertension Diabetes Other Cancer Social History Smoking and tobacco/nicotine status: never used tobacco/nicotine Second hand smoke exposure: No Alcohol intake: never Substance/Drug Use: never Marital status: Current occupational status: retired Female Reproductive History: Spontaneous abortions: No Vitals/I&O/Wt Last Vital Signs Temp 97.9 F 08/30/23 19:28 Pulse 81 08/30/23 19:28 Resp 16 08/30/23 19:28 BP 131/73 08/30/23 19:28 Pulse Ox 93 08/30/23 19:28 O2 Del Method Room Air 08/30/23 19:28 08/30/23 08/30/23 08/30/23 06:59 14:59 22:59 Intake Total 100 / 100 Output Total 750 / 750 Balance -650 / -650 Weight last 48 hrs Weight 83.96 kg Weight 85.275 kg Physical Exam Narrative: Signs of fluid overload present Awake and alert NIH 0 GCS 15 Pleasant cough Currently on room air Hemodynamic stable is at the bedside No active signs of stroke S1, S2 No audible stridor or wheezing Urinary Catheter Management: Estes: Cath Placed During This Visit: yes Reason for Continuing Indwelling Catheter: Accurate Measurement of Urinary Output in Critically Ill Patients Urinary Catheter Date of Insertion: 08/30/23 Urinary Catheter Time of Insertion: 15:34 Data 08/30/23 12:00 08/30/23 11:40 A&P Assessment and plan (1) HTN (hypertension): Qualifiers: Hypertension type: primary hypertension Qualified Code(s): I10 - Essential (primary) hypertension (2) Renal artery stenosis: (3) Congestive heart failure: (4) Status post aorto-coronary artery bypass graft: (5) Atrial fibrillation: (6) Cardiac 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 therapy 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 ([employer]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: (7) Right internal carotid artery aneurysm: (8) Vertebrobasilar insufficiency: (9) Neuropathy: Plan Lower extremity weakness with underlying chronic ataxia Rule out B12 related neuropathy Check B12 TSH and hemoglobin A1c Patient is not diabetic No typical sign of proximal muscle weakness Request PT and OT Patient is already seeing a neurologist at [place] She has history of basilar artery insufficiency They are not able to get CTA head and neck because she did not have good IV access NIH 0 Able to eat without any culture Does not want to go to alf or rehab at this point agreeable for home health services Will continue Plavix, continue statin anticoagulating agent Eliquis should be discussed before discharge because patient is at risk of falls and she is planning vacation in [place] in summer, I have advised her to use wheelchair and avoid using a walker Essential hypertension Normotensive Hold nitrates for now continue lisinopril Acute CHF exacerbation Reduced ejection fraction heart exacerbation Would use Lasix 80 mg on daily basis DNR/DNI Currently on cardiac diet Attestations Medical Necessity Statement*: Anticipating discharge within 48 hours Diagnoses Primary hypertension I10 Hypertension type: primary hypertension Renal artery stenosis I70.1 Congestive heart failure I50.9 Status post aorto-coronary artery bypass graft Z95.1 Atrial fibrillation I48.91 Cardiac 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 therapy 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 ([employer]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
[2023-08-30 21:05] LABS: Estmated Average Glucose 105; Hemoglobin A1C 5.3 % (4.0-6.0)
[2023-08-30 23:57] LABS: Vitamin B12 955 pg/mL (232-1245)
[2023-08-31] VITALS (55 sets, daily range): BP systolic 120; BP diastolic 56–84; PULSE 67–81; RESP 16–33; TEMP 36.8–37.3; O2SAT 91–96; BMI 30.8
[2023-08-31 03:41] LABS: Basophils % 0.3 %; Eosinophils # 0.3 10^3/uL (0.0-0.8); Eosinophils % 4.3 %; Hematocrit 31.8 % (36-47); Lymphocytes # 0.8 10^3/uL (0.8-4.8); Lymphocytes % 11.4 %; Mean Corpuscular HGB Conc 30.8 g/dL (30-55); Mean Corpuscular Hemoglobin 31.7 pg (27-33); Mean Corpuscular Volume 102.9 fl (85-98); Mean Platelet Volume 10.4 fL (7.4-10.4); Monocytes # 0.7 10^3/uL (0.2-0.9); Monocytes % 9.7 %; Neutrophils # 5.14 10^3/uL (1.8-7.7); Neutrophils % 74.2 %; Nucleated Red Blood Cells % 0 %; Platelet Count 164 10^3/cmm (157-399); Red Blood Count 3.09 10^6/uL (3.85-5.65); Red Cell Distribution Width 18.8 % (12.1-15.1); White Blood Count 6.93 10^3/uL (3.29-11.43)
[2023-08-31 04:06] LABS: Alanine Aminotransferase 14 U/L (0-33); Albumin Level 3.2 g/dL (3.5-5.2); Alkaline Phosphatase 235 U/L (35-105); Anion Gap 13.2 (5-19); Aspartate Amino Transferase 34 U/L (0-32); Blood Urea Nitrogen 40 mg/dL (8-23); Carbon Dioxide 29 mmol/L (22-29); Chloride 104 mmol/L (98-107); Creatinine Clr Calc Pharmacy 61.3508; Globulin 2.8 g/dL (1.3-4.6); Glucose 104 mg/dL (65-115); Magnesium 1.5 mg/dL (1.7-2.3); Osmolality Calculated 306 mOsm/kg (285-295); Potassium 3.2 mmol/L (3.5-5.1); Sodium 143 mmol/L (136-145); Total Bilirubin 0.8 mg/dL (0.15-1.2)
[2023-08-31] MEDS: FUROsemide 40 mg Tablet 80 MG PO (05:11)
[2023-08-31] MEDS: atorvastatin 40 mg Tablet PO (05:11)
[2023-08-31] MEDS: sertraline 100 mg Tablet PO (05:11)
[2023-08-31] MEDS: magnesium sulfate premix 2 GM/50 ML PIGGYBACK IV (09:57)
[2023-08-31] MEDS: potassium chloride ER 20 mEq Tablet 40 MEQ PO (09:58)
[2023-08-31] MEDS: allopurinol 100 mg Tablet 400 MG PO (09:58)
[2023-08-31] MEDS: apixaban 5 mg Tablet PO (09:59)
[2023-08-31] MEDS: lisinopril 10 mg Tablet PO (09:59)
--- NOTE | 2023-08-31 11:06 | P.DS_ITS ---
Discharge Providers Date of Admission: 08/30/23 15:22 Date of Discharge: August 31, 2023 Attending Provider at Admission: Ying Forman MD Attending Provider at Discharge: Ying Forman MD Primary Care Provider: Derek Dowd DO Diagnoses at Discharge Discharge Diagnosis (1) HTN (hypertension): Status: Acute Qualifiers: Hypertension type: primary hypertension Qualified Code(s): I10 - Essential (primary) hypertension (2) Renal artery stenosis: Status: Acute (3) Congestive heart failure: Status: Acute (4) Status post aorto-coronary artery bypass graft: Status: Acute (5) Atrial fibrillation: Status: Acute (6) Cardiac 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 therapy 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 (FIRING PIN GAUGER-D) in place: Status: Acute (7) Right internal carotid artery aneurysm: Status: Acute (8) Vertebrobasilar insufficiency: Status: Acute (9) Neuropathy: Status: Acute Reason for Visit Reason for Visit: stroke like symptoms Physical Exam Urinary Catheter Management: Estes: Cath Placed During This Visit: yes Reason for Continuing Indwelling Catheter: Accurate Measurement of Urinary Output in Critically Ill Patients Urinary Catheter Date of Insertion: 08/30/23 Urinary Catheter Time of Insertion: 15:34 Discharge Data Studies Completed and Pending Completed Studies During Hospitalization Category Date Time Status CT abdomen pelvis wo con [id number] Stat Cat Scan 08/30/23 11:[address] head wo con* [id number] Stat Cat Scan 08/30/23 11:19 Completed XR chest 1V portable [id number] Stat Exams 08/30/23 11:19 Completed Radiology Impressions Chest X-Ray 08/30/23 11:19 IMPRESSION: 1. No acute findings. 2. Metallic sternotomy wires are present. 3. Cardiac device left anterior chest Laboratory Results WBC 6.93 10^3/uL (3.29-11.43) 08/31/23 03:05 RBC 3.09 10^6/uL (3.85-5.65) L 08/31/23 03:05 Hgb 9.80 g/dL (11.27-16.99) L 08/31/23 03:05 Hct 31.8 % (36-47) L 08/31/23 03:05 MCV 102.9 fl (85-98) H 08/31/23 03:05 MCH 31.7 pg (27-33) 08/31/23 03:05 MCHC 30.8 g/dL (30-55) 08/31/23 03:05 RDW 18.8 % (12.1-15.1) H 08/31/23 03:05 Plt Count 164 10^3/cmm (157-399) D 08/31/23 03:05 MPV 10.4 fL (7.4-10.4) 08/31/23 03:05 Neut % (Auto) 74.2 % 08/31/23 03:05 Lymph % (Auto) 11.4 % 08/31/23 03:05 [place] % (Auto) 9.7 % 08/31/23 03:05 Eos % (Auto) 4.3 % 08/31/23 03:05 Baso % (Auto) 0.3 % 08/31/23 03:05 Neut # (Auto) 5.14 10^3/uL (1.8-7.7) 08/31/23 03:05 Lymph # (Auto) 0.8 10^3/uL (0.8-4.8) 08/31/23 03:05 [place] # (Auto) 0.7 10^3/uL (0.2-0.9) 08/31/23 03:05 Eos # (Auto) 0.3 10^3/uL (0.0-0.8) 08/31/23 03:05 Baso # (Auto) 0.0 10^3/uL (0.0-0.1) 08/31/23 03:05 Nucleated RBC % (auto) 0 % 08/31/23 03:05 Nucleated RBCs # 0.0 /100WBC 08/31/23 03:05 Sodium 143 mmol/L (136-145) 08/31/23 03:05 Potassium 3.2 mmol/L (3.5-5.1) L 08/31/23 03:05 Chloride 104 mmol/L (98-107) 08/31/23 03:05 Carbon Dioxide 29 mmol/L (22-29) 08/31/23 03:05 Anion Gap 13.2 (5-19) 08/31/23 03:05 BUN 40 mg/dL (8-23) H 08/31/23 03:05 Creatinine 0.9 mg/dL (0.5-0.9) 08/31/23 03:05 GFR Calculation Not Reportable 08/31/23 03:05 Glucose 104 mg/dL (65-115) 08/31/23 03:05 Estimat Average Glucose 105 08/30/23 11:40 Hemoglobin A1c 5.3 % (4.0-6.0) 08/30/23 11:40 Calculated Osmolality 306 mOsm/kg (285-295) H 08/31/23 03:05 Calcium 9.0 mg/dL (8.5-10.5) 08/31/23 03:05 Magnesium 1.5 mg/dL (1.7-2.3) L 08/31/23 03:05 Total Bilirubin 0.8 mg/dL (0.15-1.2) 08/31/23 03:05 AST 34 U/L (0-32) H 08/31/23 03:05 ALT 14 U/L (0-33) 08/31/23 03:05 Alkaline Phosphatase 235 U/L (35-105) H 08/31/23 03:05 NT-Pro-B Natriuret Pep 5075 pg/mL (0-125) H 08/30/23 11:40 Total Protein 6.0 g/dL (6.6-8.7) L 08/31/23 03:05 Albumin 3.2 g/dL (3.5-5.2) L 08/31/23 03:05 Globulin 2.8 g/dL (1.3-4.6) 08/31/23 03:05 Triglycerides 77 mg/dL (0-150) 08/30/23 11:40 Cholesterol 154 mg/dL (0-200) 08/30/23 11:40 LDL Cholesterol, Calc 73 mg/dL (50-129) 08/30/23 11:40 HDL Cholesterol 66 mg/dL (60-100) 08/30/23 11:40 LDL/HDL Ratio 1.11 RATIO (0.00-3.22) 08/30/23 11:40 Cholesterol/HDL Ratio 2.33 mg/dL (0.0-4.40) 08/30/23 11:40 Vitamin B12 955 pg/mL (232-1245) 08/30/23 11:40 TSH 4.78 uIU/mL (0.27-4.20) H 08/30/23 11:40 Urine Color Yellow (Yellow) 08/30/23 12:23 Urine Appearance Sl hazy (CLEAR) A 08/30/23 12:23 Urine pH 5 (5-7) 08/30/23 12:23 Ur Specific [place] 1.010 (1.005-1.030) 08/30/23 12:23 Urine Protein Neg (Negative) 08/30/23 12:23 Urine Glucose (UA) Norm (Normal) 08/30/23 12:23 Urine Ketones Negative (Negative) 08/30/23 12:23 Urine Blood Neg (Negative) 08/30/23 12:23 Urine Nitrate Negative (Negative) 08/30/23 12:23 Urine Bilirubin Neg (Negative) 08/30/23 12:23 Urine Urobilinogen Norm mg/dL (Negative) 08/30/23 12:23 Ur Leukocyte Esterase Negative (Negative) 08/30/23 12:23 Urine RBC None /hpf (0-2) 08/30/23 12:23 Urine WBC 0-4 /hpf (0-5) H 08/30/23 12:23 Ur Squamous Epith Cells 0-4 /hpf (0-5) H 08/30/23 12:23 Amorphous Sediment Not Reportable 08/30/23 12:23 Urine Bacteria 3+ /hpf (NONE) H 08/30/23 12:23 Vitals Last Vital Signs Temp 99.2 F 08/31/23 08:00 Pulse 72 08/31/23 10:00 Resp 16 08/31/23 10:00 BP 120/56 08/31/23 08:00 Pulse Ox 94 08/31/23 09:47 O2 Del Method Room Air 08/31/23 09:47 Discharge Plan Discharge Patient Disposition: Home Condition: Stable Prescriptions: Continued multivitamin Tablet 1 tab PO QAM lisinopril 10 mg tablet 10 mg PO DAILY Qty: 90 3RF Slow-Mag 71.5 mg tablet,delayed release (DR/EC) 71.5 mg PO BID Qty: 60 5RF allopurinol 100 mg tablet 400 mg PO DAILY Qty: 120 11RF Nitrostat 0.4 mg tablet, sublingual 0.4 mg SUBLINGUAL Q5M PRN (Reason: Chest Pain) Qty: 30 2RF Rx Instructions: do not exceed 3 doses per episode atorvastatin 40 mg tablet 40 mg PO QAM Qty: 90 3RF sertraline 100 mg tablet 100 mg PO QAM Qty: 90 3RF alprazolam 0.5 mg tablet 0.5 mg PO DAILY PRN (Reason: Anxiety) Qty: 20 0RF albuterol sulfate 90 mcg/actuation HFA aerosol inhaler 2 puff INHALATION QID PRN (Reason: Shortness Of Breath) Qty: 8.5 2RF galantamine 4 mg tablet 4 mg PO BID Qty: 60 3RF Rx Instructions: administer with AM and PM meals metoprolol tartrate 25 mg tablet 25 mg PO BID Qty: 120 3RF acetaminophen [Tylenol Arthritis Pain] 650 mg tablet extended release 1,300 mg PO BID isosorbide mononitrate 60 mg tablet extended release 24 hr 60 mg PO BID pantoprazole 40 mg tablet,delayed release (DR/EC) 40 mg PO BID ascorbic acid (vitamin C) [Vitamin C] 500 mg Tablet See Rx Instructions .ROUTE .COMPLEX Rx Instructions: 500 mg orally ON TUESDAY, TUESDAY AND TUESDAY ferrous sulfate [Iron (ferrous sulfate)] 325 mg (65 mg iron) Tablet See Rx Instructions .ROUTE .COMPLEX Rx Instructions: 325 mg orally ON TUESDAY-TUESDAY AND TUESDAY bisacodyl [Dulcolax (bisacodyl)] 5 mg Tablet,Delayed Release (Dr/Ec) 5 mg PO DAILY furosemide 40 mg tablet 80 mg PO QAM omega-3 fatty acids 1,000 mg Capsule 1,000 mg PO DAILY clopidogrel 75 mg tablet 75 mg PO BEDTIME Hold Instructions: Resume on 08/05/23. Rx Instructions: TAKE ONE TABLET BY MOUTH at bedtime potassium chloride 20 mEq tablet,ER particles/crystals 20 meq PO BID Rx Instructions: take one tablet BY MOUTH TWICE DAILY while taking bumex Eliquis 5 mg tablet 5 mg PO BID Hold Instructions: Resume on 08/05/23. Rx Instructions: TAKE ONE TABLET BY MOUTH TWICE DAILY hydrocodone-acetaminophen 7.5-325 mg tablet 1 tab PO Q6H PRN (Reason: pain) Qty: 20 0RF docusate sodium [Colace] 100 mg capsule 100 mg PO BID Qty: 14 0RF Discontinued Tart Alonso Extract 1,000 mg capsule 1,000 mg PO BEDTIME glucosamine sulfate [Glucosamine] 500 mg Tablet 500 mg PO BID doxycycline hyclate 100 mg capsule 100 mg PO DAILY PRN (Reason: kidney infection) Rx Instructions: as needed Discharge Orders: Discharge Order (Routine); Ordered 08/31/23 Ordered By: Ying Forman Referrals: Derek Dowd DO [Primary Care Provider] - 09/06/23 9:30 am Discharge Diet: Cardiac Discharge Activity: Resume usual activity and Use walker/crutches as instructed Patient Instructions: Heart Failure (DC), Hypertension (DC), Stroke (DC), CHF Stoplight, Opioid Safety, Stroke Stoplight Activity Restrictions/Additional Instructions: Please follow up with neurology as previously scheduled in [place]. Discharge Attestations Time Spent in Discharge Care*: greater than 30 min Status at Discharge: Cognitive status at discharge: cognitively intact , Behavioral status at discharge: cooperative , Quality Metrics Clinical Quality Measures [ No reported AMI, CVA or VTE this stay] Coding Level of Care Code Acute Code for Chg Fwd Diagnoses Primary hypertension I10 Hypertension type: primary hypertension Renal artery stenosis I70.1 Congestive heart failure I50.9 Status post aorto-coronary artery bypass graft Z95.1 Atrial fibrillation I48.91 Cardiac 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 therapy 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 (FIRING PIN GAUGER-D) in place Z95.810 Right internal carotid artery aneurysm I67.1 Vertebrobasilar insufficiency G45.0 Neuropathy G62.9
--- NOTE | 2023-08-31 13:22 | PC.NURSE ---
Pt requewt new script for po potassium as she is out at home. Dr. Forman notified and ordered a 30 day supply to last until the pt sees her PCP.
--- NOTE | 2023-08-31 13:59 | PC.NURSE ---
Discharge Note Patient discharged to [home] via [w/c to POV] accompanied by [her ]. Discharge instructions reviewed with patient and/or contact representative. Pt taken to [facility] pharmacy for medications and/or prescriptions to be filled. Belongings went home with the pt.
== END 2023-08-31 13:59 | disposition home or self-care (01) ==
LOC: ER 12:03 → CSU 16:32
PROVIDERS: Internal Medicine; Admitting Provider Internal Medicine; Emergency Provider Family Medicine; PCP Family Medicine; Visit Provider Internal Medicine
DX: I13.0 Hypertensive heart and chronic kidney disease with heart failure and stage 1 through stage 4 chronic kidney disease, or unspecified chronic kidney disease (principal); I50.9 Heart failure, unspecified; N18.30 Chronic kidney disease, stage 3 unspecified; I70.1 Atherosclerosis of renal artery; Z95.1 Presence of aortocoronary bypass graft; I48.91 Unspecified atrial fibrillation; I67.1 Cerebral aneurysm, nonruptured; G45.0 Vertebro-basilar artery syndrome; G62.9 Polyneuropathy, unspecified; Z79.01 Long term (current) use of anticoagulants; Z91.81 History of falling; Z95.0 Presence of cardiac pacemaker; I25.2 Old myocardial infarction; Z86.14 Personal history of Methicillin resistant Staphylococcus aureus infection; K21.9 Gastro-esophageal reflux disease without esophagitis; E78.5 Hyperlipidemia, unspecified; G47.33 Obstructive sleep apnea (adult) (pediatric)
CPT/HCPCS: 36415; 51702; 70450; 71045; 74176; 80053; 80061; 81001; 82607; 83036; 83735; 83880; 84443; 85025; 93005; 94664; 96365; 96375; 96376; 99285; 99291; A9270; G0378; J1940; J3475; J7030

== ENCOUNTER → 2023-09-05 14:07 | Outpatient (BNVA) | payer BC, MEDICARE, SELFPAY | PROVIDERS: PCP Family Medicine; Visit Provider Surgery | DX: Z90.49 Acquired absence of other specified parts of digestive tract (principal); I87.8 Other specified disorders of veins; Z98.890 Other specified postprocedural states | CPT/HCPCS: 99214 ==

== ENCOUNTER 2023-09-27 06:43 | Day surgery (SDC) | payer BC, MEDICARE, SELFPAY ==
[2023-09-27] VITALS (7 sets, daily range): BP systolic 124–146; BP diastolic 61–84; PULSE 70–78; RESP 12–16; TEMP 36.4–36.9; O2SAT 95–98; BMI 29.2
--- NOTE | 2023-09-27 06:47 | SC_ITS ---
WS: [id number] C-ARM RADIOGRAPHS CHEST; 2 IMAGES HISTORY: Mediport placement COMPARISON: None available. Intraoperative imaging during RIGHT Mediport placement. Tip projects over the distal SVC. SC/C-arm FL for CVA [id number] IMPRESSION: Intraoperative imaging during Mediport placement.
--- NOTE | 2023-09-27 06:47 | XRR_ITS ---
PROCEDURE INFORMATION: Exam: XR Chest Exam date and time: 09/27/2023 9:04 AM Age: 73 years old Clinical indication: Device placement; Other: Mediport placement; Prior surgery; Surgery date: Post-operative (0-2 days); Additional info: Postop mediport placement TECHNIQUE: Imaging protocol: Radiologic exam of the chest. Views: 1 view. COMPARISON: CR XR chest 1V portable [id number] 30/08/2023 11:44 FINDINGS: Tubes, catheters and devices: There is a right subclavian vein approach MediPort with the distal tip of the MediPort tubing in good position in the SVC. There is a multi lead pacer 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 on the left side of the chest. Lungs: Unremarkable. No consolidation. Pleural spaces: Unremarkable. No pleural effusion. No pneumothorax. Heart/Mediastinum: Borderline cardiomegaly Bones/joints: Previous median sternotomy. XR/XR chest 1V portable [id number] IMPRESSION: The right subclavian MediPort is in good position and there is no pneumothorax
--- NOTE | 2023-09-27 07:07 | W.PM.OPSUD ---
Surgery/Procedure H&P Update DATE OF PROCEDURE: September 27, 2023 DATE H&P PERFORMED: 09/05/23 H&P UPDATE INFORMATION: I have reviewed H&P completed within last 30 days, I have examined patient prior to procedure and No changes to prior documentation PLANNED PROCEDURE: Operation Date: 09/27/23 08:15 Proposed Procedures p Portacath Placement [id number], I87.8(Not Applicable) - Fran Amaya DO
[2023-09-27] MEDS: sodium chloride 0.9% 1,000 ML 30 ML IV (07:09)
--- NOTE | 2023-09-27 08:12 | P.ANESASSM_ITS ---
Pre-Anesthetic Assessment Height/Weight: Height 1.65 m Weight 79.832 kg Temp Pulse Resp BP Pulse Ox O2 Del Method 97.8 F 73 16 137/84 97 Room Air 09/27/23 07:02 09/27/23 07:02 09/27/23 07:02 09/27/23 07:02 09/27/23 07:02 09/27/23 07:02 Operation Date: 09/27/23 08:15 Proposed Procedures p Portacath Placement [id number], I87.8(Not Applicable) - Fran Amaya DO Familial anesthetic complications: none Last intake: Intake Last Liquid Date 09/27/23 Last Liquid Time 00:00 Last Solid Date 09/26/23 Last Solid Time 22:00 Social No alcohol and No tobacco Exam alert, oriented x 3, clear to auscultation bilaterally and regular rate & rhythm Pulmonary Sleep Apnea CV/HEM Atrial Fibrillation (pacemaker), Coronary Artery Disease (stents), Congestive Heart Failure and Hypertension [facility] Gastroesophageal Reflux Disease Anesthetic Plan ASA status: 4 Anesthesia: MAC Risk of > 500 ml blood loss (7ml/kg in children): No Medications/Allergies Home Medications Medication Instructions Recorded Confirmed Last Taken Type multivitamin 1 tab PO QAM 06/08/21 09/26/23 09/26/23 History omega-3 fatty acids 1,000 mg 1,000 mg PO DAILY 03/24/22 09/26/23 08/30/23 History capsule acetaminophen 650 mg 1,300 mg PO BID 09/17/22 09/26/23 09/26/23 History tablet,extended release (Tylenol Arthritis Pain) nitroglycerin 0.4 mg sublingual 0.4 mg sublingual Q5M PRN Chest 12/06/22 09/26/23 Unknown Rx tablet (Nitrostat) Pain #30 tabs atorvastatin 40 mg tablet 40 mg PO QAM #90 tabs 12/13/22 09/26/23 09/26/23 Rx sertraline 100 mg tablet 100 mg PO QAM #90 tabs 12/13/22 09/26/23 09/26/23 Rx isosorbide mononitrate 60 mg 60 mg PO BID 04/23/23 09/27/23 09/27/23 06:00 History tablet,extended release 24 hr pantoprazole 40 mg tablet,delayed 40 mg PO BID 12/09/27/23 09/27/23 06:00 History release allopurinol 100 mg tablet 400 mg (4 x 100 mg) PO DAILY #120 04/27/23 09/27/23 09/26/23 Rx tabs lisinopril 10 mg tablet 10 mg PO DAILY #90 tabs 05/03/23 09/26/23 09/26/23 Rx ascorbic acid (vitamin C) 500 mg See Rx Instructions .Route .COMPLEX 06/06/23 09/26/23 09/26/23 History tablet (Vitamin C) bisacodyl 5 mg tablet,delayed 5 mg PO DAILY PRN Constipation 06/06/23 09/26/23 08/24/23 History release (Dulcolax (bisacodyl)) ferrous sulfate 325 mg (65 mg See Rx Instructions .Route .COMPLEX 06/06/23 09/26/23 09/26/23 History iron) tablet (Iron (ferrous sulfate)) furosemide 40 mg tablet 80 mg PO QAM 06/06/23 09/26/23 09/26/23 History albuterol sulfate 90 mcg/actuation 2 puff inhalation QID PRN 06/29/23 09/26/23 08/30/23 Rx aerosol inhaler Shortness Of Breath #8.5 grams alprazolam 0.5 mg tablet 0.5 mg PO DAILY PRN Anxiety #20 06/29/23 09/26/23 08/29/23 Rx tabs galantamine 4 mg tablet 4 mg PO BID #60 tabs 07/15/23 09/26/23 09/26/23 Rx metoprolol tartrate 25 mg tablet 25 mg PO BID #120 tabs 07/19/23 09/27/23 09/27/23 06:00 Rx apixaban 5 mg tablet (Eliquis) 5 mg PO BID 08/01/23 09/26/23 09/21/23 History clopidogrel 75 mg tablet 75 mg PO BEDTIME 08/01/23 09/26/23 09/21/23 History magnesium chloride 71.5 mg 71.5 mg PO BID #60 tabs 09/06/23 09/26/23 09/26/23 Rx (magnesium chloride) tablet,delayed release (Slow-Mag) potassium chloride 20 mEq 20 meq PO BID #60 tabs 09/06/23 09/26/23 09/26/23 Rx tablet,extended release(part/cryst) Allergies Allergy/AdvReac Type Severity Reaction Status Date / Time levofloxacin [From Levaquin] Allergy ALGY-Redness Verified 09/26/23 13:21 of Skin Sulfa (Sulfonamide Allergy hives Verified 09/26/23 13:21 Antibiotics) adhesive tape AdvReac Mild Unknown Verified 09/26/23 13:21 Current Medications Generic Name Dose Route Start Last Admin Trade Name Maurisioq PRN Reason Stop Dose Admin Sodium Chloride 1,000 mls @ 30 mls/hr 09/27/23 07:00 09/27/23 07:09 Sodium Chloride 0.9% IV 09/28/23 06:59 30 mls/hr .Q24H JEREMY Administration PFSH Anesthesia Medical History Poor venous access Hearing loss associated with syndrome of both ears NSTEMI (non-ST elevated myocardial infarction) Elevated troponin I level Acute cystitis without hematuria Intracranial atherosclerosis Balance disorder Cognitive impairment Cardiac 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 therapy 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 (TWISTING FRAME CHANGER-D) in place Recurrent UTI CKD (chronic kidney disease) stage 3, GFR 30-59 ml/min 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 GERD (gastroesophageal reflux disease) Hyperlipidemia Iron deficiency anemia Gout Sleep apnea Vertebral artery stenosis Left bundle branch block Right internal carotid artery aneurysm Vertebrobasilar insufficiency Atrial fibrillation PAD (peripheral artery disease) Renal artery stenosis Cardiomyopathy CHF (congestive heart failure) Anticoagulant long-term use BASIA (obstructive sleep apnea) HTN (hypertension) Chronic renal insufficiency, stage II (mild) Surgical History Status post cholecystectomy Hx of arthroscopy of right knee S/P appendectomy S/P section S/P hysterectomy Status post tubal ligation Status post aorto-coronary artery bypass graft S/P CABG (coronary artery bypass graft) S/P angioplasty with stent S/P ICD (internal cardiac 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) procedure H/O cardiac radiofrequency ablation Family History Father , AT AGE 65 Hyperlipidemia CAD (coronary artery disease) Hypertension Rheumatoid arthritis Mother , AT AGE 65 Hyperlipidemia CAD (coronary artery disease) Hypertension Diabetes Sister Hyperlipidemia CAD (coronary artery disease) Hypertension Diabetes Other Cancer Social History Smoking and tobacco/nicotine status: never used tobacco/nicotine Second hand smoke exposure: No Alcohol intake: never Substance/Drug Use: never Marital status: Current occupational status: retired Female Reproductive History Spontaneous abortions: No Data Anesthesia Cardiac Studies: Echocardiogram 06/21/23 Echocardiogram Limited Views 09/18/22 Transesophageal Echocardiogram 09/21/22 Sestamibi Stress Test (Cardiology) 06/24
[2023-09-27] MEDS: ceFAZolin 2,000 MG in sodium chloride 0.9% (plus) 50 ML 100 MG IV (08:13)
[2023-09-27] MEDS: lidocaine-epi 2% PF 1:200,000 20 mL SDV XX (08:30)
[2023-09-27] MEDS: heparin, porcine 1,000 unit/mL INJ 10 mL 10000 UNIT IRRIGATION (08:30)
--- NOTE | 2023-09-27 08:51 | PM.OP ---
Operative Report Date of procedure: September 27, 2023 Pre-op diagnosis: Poor venous access Post-op diagnosis: same Procedure done: Mediport insertion Intraoperative interpretation of fluoroscopy Implants: PowerPort Specimens removed/disposition: None Surgeon: Fran Amaya DO Anesthesia: MAC and Local Complications: None apparent Brief History: This is a very pleasant 73-year-old female with poor venous access. She requested Mediport placement for venous access. The risks and benefits were explained and documented. Procedure: The patient was taken to the operating room and placed supine on the operating room table. All bony prominences were padded. She was given IV sedation and monitored throughout the case by the anesthesia personnel. SCDs were placed and turned on. The arms were tucked to the side. Patient received Ancef 2 g preoperatively IV. The bilateral chest wall was prepped and draped in usual sterile fashion using chlorhexidine base prep. Sterile drapes were applied. We did procedure pause prior to beginning. An 18 gauge needle was placed in the right subclavian vein. Dark, nonpulsatile blood was aspirated. A guidewire was placed through the needle centrally toward the atrial/vena caval junction. Fluoroscopy visualized good placement. The needle was removed and the guidewire was clipped to the drape with a hemostat. Further local anesthetic was infiltrated in the soft tissues of the right chest wall and a #15 blade was used to make a horizontal skin incision. A subcutaneous Mediport pocket was created using Bovie cautery, dissecting down through the skin and subcutaneous tissues. Meticulous hemostasis was achieved. The Mediport was sutured in position using 3-0 vicryl suture x2 stitches. A #15 blade was used to make a small skin mayra around the guidewire insertion area. The Mediport tubing was tunneled through the subcutaneous tissues up to the needle insertion location. A dilator with a peel-away sheath was placed over the guidewire and placed centrally. After measuring the Mediport tubing was cut to length so that the tip would end at the atrial/vena caval junction. The inner cannula and the guidewire were removed, leaving the dilator sheath in place. The Mediport was flushed. The tip of the catheter was inserted through the peel-away sheath and the peel-away sheath removed in the standard fashion. The Mediport was accessed with a straight [place] needle and dark, nonpulsatile blood was aspirated and flushed using heparinized saline to hep-lock the Mediport. Final fluoroscopy visualization showed no kink in the catheter and the tip of the Mediport tubing near the atrial/vena caval junction. There was no obvious pneumothorax. Both skin incisions were thoroughly irrigated and suctioned dry. Meticulous hemostasis noted. The dermis was approximated with 3-0 Vicryl in an interrupted fashion. Skin was closed with Dermabond. Patient was awakened from anesthesia and transferred via her cart to the recovery room in stable condition. All needle, sponge, and instrument counts were correct per the operating personnel x2 counts.
--- NOTE | 2023-09-27 10:15 | ANE.PACU2 ---
Inpatient post-anesthesia follow up: Airway intact: Yes Vital signs: Temperature 97.5 F Pulse Rate 72 Respiratory Rate 16 Blood Pressure 136/83 Pulse Oximetry 96 Oxygen Delivery Me thod Room Air Oxygen Flow Rate Fraction of Inspir ed Oxygen Hydration adequate: Yes Nausea and vomiting: No Pain level: 1 Mental status: Baseline
== END 2023-09-27 10:15 | disposition home or self-care (01) ==
PROVIDERS: PCP Family Medicine; Visit Provider Surgery
PROC: (CPT 36561; principal; 2023-09-27 08:15)
DX: I87.8 Other specified disorders of veins (principal)
CPT/HCPCS: 36561; 71045; 76000; 77001; C1788; J0690; J1644; J2704; J3010; J7030

== ENCOUNTER → 2023-09-28 14:39 | Outpatient (BNVA) | payer BC, MEDICARE, SELFPAY | PROVIDERS: PCP Family Medicine; Visit Provider Internal Medicine | DX: I13.0 Hypertensive heart and chronic kidney disease with heart failure and stage 1 through stage 4 chronic kidney disease, or unspecified chronic kidney disease (principal); N18.30 Chronic kidney disease, stage 3 unspecified; I50.9 Heart failure, unspecified; Z87.891 Personal history of nicotine dependence; Z95.1 Presence of aortocoronary bypass graft; E78.2 Mixed hyperlipidemia; I48.91 Unspecified atrial fibrillation; I25.10 Atherosclerotic heart disease of native coronary artery without angina pectoris; Z95.810 Presence of automatic (implantable) cardiac 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 | CPT/HCPCS: 93280; 99214 ==

== ENCOUNTER 2023-10-05 13:26 | Inpatient (IN) | payer BC, MEDICARE, SELFPAY ==
[2023-10-05] VITALS (43 sets, daily range): BP systolic 134–148; BP diastolic 87–98; PULSE 70–85; RESP 15–38; O2SAT 86–99
--- NOTE | 2023-10-05 13:27 | XR_ITS ---
WS: [id number] Exam: XR chest 1V portable [id number] Date/Time of Exam: 10/05/2023 1:27 PM Reason For Exam: sob Comparison 09/27/2023. The lungs are fully inflated and clear. Heart size top limits normal. No pleural effusions. A permane nt cardiac pacer superimposes the LEFT chest. A RIGHT subclavian port ends in the lower one third of the SVC. Signs of previous CABG surgery. Bony structures are intact. XR/XR chest 1V portable [id number] IMPRESSION: 1. No acute cardiopulmonary finding. No change.
--- NOTE | 2023-10-05 13:28 | ECG_ITS ---
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 Measurements Intervals [place] Rate: 76 P: 0 SD: 0 QRS: -61 QRSD: 167 T: 116 QT: 480 QTc: 541 Interpretive Statements ELECTRONIC VENTRICULAR PACEMAKER Compared to ECG 08/30/2023 11:23:15 No significant changes Electronically Signed On 10-05-2023 13:56:02 CDT by Kel Molina M.D. [id number]
--- NOTE | 2023-10-05 15:49 | W.ED.GENADLT ---
HPI - General Adult General: Chief complaint: General Medical Stated complaint: fluid build up Time Seen by Provider: 10/05/23 15:32 Source: patient Mode of arrival: ambulatory History of Present Illness: 73-year-old female presents emergency room is a known history of congestive heart failure reports been off of her Lasix for the last several days she has had increasing orthopnea and exertional dyspnea no chest pain. Increased swelling in her legs as well. Onset (ago): day(s) (4) Pain Consistency: constant Associated symptoms: Reports dyspnea and short of breath; Deny chest pain, confusion, cough, diaphoresis, decreased appetite, fevers/chills, headache(s), malaise, nausea, rash, palpitations, seizures, syncope, vomiting, weakness or other Treatments prior to arrival: none Review of Systems Const: Denies: fever(s), chills, malaise or diaphoresis Card: Reports: edema, swelling of feet/ankles, dyspnea on exertion and orthopnea; Denies: chest pain, palpitations or syncope Resp: Reports: dyspnea GI: Denies: abdominal pain, nausea or vomiting : Denies: flank pain, dysuria, urinary frequency or urinary urgency Musc: Denies: neck pain or back pain Skin/Breast: Denies: rash Neuro: Denies: headache(s) or confusion PFSH ED PFSH: Medical History Poor venous access Hearing loss associated with syndrome of both ears NSTEMI (non-ST elevated myocardial infarction) Elevated troponin I level Acute cystitis without hematuria Intracranial atherosclerosis Balance disorder Cognitive impairment Cardiac 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 therapy 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 ([employer]-D) in place Recurrent UTI CKD (chronic kidney disease) stage 3, GFR 30-59 ml/min 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 GERD (gastroesophageal reflux disease) Hyperlipidemia Iron deficiency anemia Gout Sleep apnea Vertebral artery stenosis Left bundle branch block Right internal carotid artery aneurysm Vertebrobasilar insufficiency Atrial fibrillation PAD (peripheral artery disease) Renal artery stenosis Cardiomyopathy CHF (congestive heart failure) Anticoagulant long-term use BASIA (obstructive sleep apnea) HTN (hypertension) Chronic renal insufficiency, stage II (mild) Surgical History Status post cholecystectomy Hx of arthroscopy of right knee S/P appendectomy S/P section S/P hysterectomy Status post tubal ligation Status post aorto-coronary artery bypass graft S/P CABG (coronary artery bypass graft) S/P angioplasty with stent S/P ICD (internal cardiac 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) procedure H/O cardiac radiofrequency ablation Family History Father , AT AGE 65 Hyperlipidemia CAD (coronary artery disease) Hypertension Rheumatoid arthritis Mother , AT AGE 65 Hyperlipidemia CAD (coronary artery disease) Hypertension Diabetes Sister Hyperlipidemia CAD (coronary artery disease) Hypertension Diabetes Other Cancer Social History Smoking and tobacco/nicotine status: former use of tobacco/nicotine Second hand smoke exposure: No Alcohol intake: never Substance/Drug Use: never Marital status: Current occupational status: retired Female Reproductive History: Spontaneous abortions: No Physical Exam Const: GENERAL APPEARANCE: cooperative and comfortable ORIENTATION/CONSCIOUSNESS: Yes awake, Yes oriented to person, Yes oriented to place and Yes oriented to time HENMT: COMMON NORMALS: normocephalic, atraumatic and hearing grossly normal bilaterally HEAD & SCALP: normocephalic and atraumatic Resp: COMMON NORMALS: normal respiratory effort, No retractions and No use of accessory muscles AUSCULTATION: crackles Cardio: COMMON NORMALS: regular rate, regular rhythm and No murmurs present (Cardio) RATE: regular rate RHYTHM: regular rhythm GI: COMMON NORMALS: Soft to palpation and No hepatosplenomegaly present AUSCULTATION: Yes normoactive bowel sounds PALPATION: Yes Soft to palpation, No Tenderness to palpation present (GI), No Guarding due to palpation present (GI) and Yes No hepatosplenomegaly present Extremity: COMMON NORMALS: normal to inspection, capillary refill normal, no clubbing, cyanosis or edema, no calf tenderness and no pedal edema GENERAL: Yes edema Neuro: SENSORIUM/ORIENTATION: Yes oriented to person, Yes oriented to place and Yes oriented to time Skin: COMMON NORMALS: no rashes or lesions noted GENERAL SKIN EXAM: no rashes or lesions noted Course Vital Signs: Vital signs: Vital Signs Pulse Rate 85 10/05/23 16:42 Blood Pressure 134/87 10/05/23 16:42 Pulse Oximetry 93 10/05/23 16:42 Oxygen Delivery Me thod Room Air 10/05/23 13:29 MDM - General Adult Medical Decision Making Exacerbation CHF. She is borderline hypoxic at rest and is reporting significant worsening of orthopnea and exertional dyspnea without chest pain. She is given Lasix 60 mg in the ER discussed Dr. Marquis will admit placed on observation on CSU. Optimize medical management. Medical Records I reviewed the patient's medical records. Lab Data I reviewed the patient's lab results. 10/05/23 16:24 10/05/23 16:24 Radiology Impressions Chest X-Ray 10/05/23 13:27 IMPRESSION: 1. No acute cardiopulmonary finding. No change. Laboratory Results WBC 5.21 10^3/uL (3.29-11.43) 10/05/23 16: RBC 3.37 10^6/uL (3.85-5.65) L 10/05/23 16:24 Hgb 10.70 g/dL (11.27-16.99) L 10/05/23 16:24 Hct 33.7 % (36-47) L 10/05/23 16:24 MCV 100.0 fl (85-98) H 10/05/23 16:24 MCH 31.8 pg (27-33) 10/05/23 16:24 MCHC 31.8 g/dL (30-55) 10/05/23 16:24 RDW 17.1 % (12.1-15.1) H 10/05/23 16:24 Plt Count 193 10^3/cmm (157-399) 10/05/23 16:24 MPV 10.6 fL (7.4-10.4) H 10/05/23 16:24 Neut % (Auto) 67.9 % 10/05/23 16:24 Lymph % (Auto) 14.4 % 10/05/23 16:24 [place] % (Auto) 13.2 % 10/05/23 16:24 Eos % (Auto) 2.7 % 10/05/23 16:24 Baso % (Auto) 1.2 % 10/05/23 16:24 Neut # (Auto) 3.54 10^3/uL (1.8-7.7) 10/05/23 16:24 Lymph # (Auto) 0.8 10^3/uL (0.8-4.8) 10/05/23 16:24 [place] # (Auto) 0.7 10^3/uL (0.2-0.9) 10/05/23 16:24 Eos # (Auto) 0.1 10^3/uL (0.0-0.8) 10/05/23 16:24 Baso # (Auto) 0.1 10^3/uL (0.0-0.1) 10/05/23 16:24 Nucleated RBC % (auto) 0 % 10/05/23 16:24 Nucleated RBCs # 0.0 /100WBC 10/05/23 16:24 Sodium 135 mmol/L (136-145) L 10/05/23 16:24 Potassium 3.8 mmol/L (3.5-5.1) 10/05/23 16:24 Chloride 101 mmol/L (98-107) 10/05/23 16:24 Carbon Dioxide 24 mmol/L (22-29) 10/05/23 16:24 Anion Gap 13.8 (5-19) 10/05/23 16:24 BUN 30 mg/dL (8-23) H 10/05/23 16:24 Creatinine 1.2 mg/dL (0.5-0.9) H 10/05/23 16:24 GFR Calculation Not Reportable 10/05/23 16:24 Glucose 115 mg/dL (65-115) 10/05/23 16:24 Calculated Osmolality 287 mOsm/kg (285-295) 10/05/23 16:24 Calcium 9.1 mg/dL (8.5-10.5) 10/05/23 16:24 Total Bilirubin 2.0 mg/dL (0.15-1.2) H 10/05/23 16:24 AST 56 U/L (0-32) H 10/05/23 16:24 ALT 21 U/L (0-33) 10/05/23 16:24 Alkaline Phosphatase 331 U/L (35-105) H 10/05/23 16:24 NT-Pro-B Natriuret Pep 5443 pg/mL (0-125) H 10/05/23 16:24 Total Protein 6.4 g/dL (6.6-8.7) L 10/05/23 16:24 Albumin 3.8 g/dL (3.5-5.2) 10/05/23 16:24 Globulin 2.6 g/dL (1.3-4.6) 10/05/23 16:24 All radiology interpretation(s) finalized by discharge Discharge Plan Discharge Condition: Stable Prescriptions: No Action multivitamin Tablet 1 tab PO QAM lisinopril 10 mg tablet 10 mg PO DAILY Qty: 90 3RF allopurinol 100 mg tablet 400 mg PO DAILY Qty: 120 11RF Nitrostat 0.4 mg tablet, sublingual 0.4 mg SUBLINGUAL Q5M PRN (Reason: Chest Pain) Qty: 30 2RF Rx Instructions: do not exceed 3 doses per episode atorvastatin 40 mg tablet 40 mg PO QAM Qty: 90 3RF sertraline 100 mg tablet 100 mg PO QAM Qty: 90 3RF alprazolam 0.5 mg tablet 0.5 mg PO DAILY PRN (Reason: Anxiety) Qty: 20 0RF albuterol sulfate 90 mcg/actuation HFA aerosol inhaler 2 puff INHALATION QID PRN (Reason: Shortness Of Breath) Qty: 8.5 2RF potassium chloride 20 mEq tablet,ER particles/crystals 20 meq PO BID Qty: 60 2RF Rx Instructions: take one tablet BY MOUTH TWICE DAILY while taking bumex. Slow-Mag 71.5 mg tablet,delayed release (DR/EC) 71.5 mg PO BID Qty: 60 5RF galantamine 4 mg tablet 4 mg PO BID Qty: 60 3RF Rx Instructions: administer with AM and PM meals metoprolol tartrate 25 mg tablet 25 mg PO BID Qty: 120 3RF acetaminophen [Tylenol Arthritis Pain] 650 mg tablet extended release 1,300 mg PO BID isosorbide mononitrate 60 mg tablet extended release 24 hr 60 mg PO BID pantoprazole 40 mg tablet,delayed release (DR/EC) 40 mg PO BID ascorbic acid (vitamin C) [Vitamin C] 500 mg Tablet See Rx Instructions .ROUTE .COMPLEX Rx Instructions: 500 mg orally ON TUESDAY, TUESDAY AND TUESDAY ferrous sulfate [Iron (ferrous sulfate)] 325 mg (65 mg iron) Tablet See Rx Instructions .ROUTE .COMPLEX Rx Instructions: 325 mg orally ON TUESDAY-TUESDAY AND TUESDAY bisacodyl [Dulcolax (bisacodyl)] 5 mg Tablet,Delayed Release (Dr/Ec) 5 mg PO DAILY PRN (Reason: Constipation) furosemide 40 mg tablet 80 mg PO QAM omega-3 fatty acids 1,000 mg Capsule 1,000 mg PO DAILY clopidogrel 75 mg tablet 75 mg PO BEDTIME Hold Instructions: Resume on 09/29/23. Rx Instructions: TAKE ONE TABLET BY MOUTH at bedtime Eliquis 5 mg tablet 5 mg PO BID Hold Instructions: Resume on 09/29/23. Rx Instructions: TAKE ONE TABLET BY MOUTH TWICE DAILY Referrals: Derek Dowd DO [Primary Care Provider] - Coding Level of Care Code ED Supervisor Final for Tracyg Megan
[2023-10-05] MEDS: FUROsemide 10 mg/mL SDV 10mL 60 MG IVP (16:18)
[2023-10-05 16:30] LABS: Basophils # 0.1 10^3/uL (0.0-0.1); Basophils % 1.2 %; Eosinophils # 0.1 10^3/uL (0.0-0.8); Eosinophils % 2.7 %; Hematocrit 33.7 % (36-47); Lymphocytes # 0.8 10^3/uL (0.8-4.8); Lymphocytes % 14.4 %; Mean Corpuscular HGB Conc 31.8 g/dL (30-55); Mean Corpuscular Hemoglobin 31.8 pg (27-33); Mean Platelet Volume 10.6 fL (7.4-10.4); Monocytes # 0.7 10^3/uL (0.2-0.9); Monocytes % 13.2 %; Neutrophils # 3.54 10^3/uL (1.8-7.7); Neutrophils % 67.9 %; Nucleated Red Blood Cells % 0 %; Platelet Count 193 10^3/cmm (157-399); Red Blood Count 3.37 10^6/uL (3.85-5.65); Red Cell Distribution Width 17.1 % (12.1-15.1); White Blood Count 5.21 10^3/uL (3.29-11.43)
[2023-10-05 16:57] LABS: Alanine Aminotransferase 21 U/L (0-33); Albumin Level 3.8 g/dL (3.5-5.2); Alkaline Phosphatase 331 U/L (35-105); Anion Gap 13.8 (5-19); Aspartate Amino Transferase 56 U/L (0-32); Blood Urea Nitrogen 30 mg/dL (8-23); Calcium 9.1 mg/dL (8.5-10.5); Carbon Dioxide 24 mmol/L (22-29); Chloride 101 mmol/L (98-107); Creatinine Clr Calc Pharmacy 45.5081; Globulin 2.6 g/dL (1.3-4.6); Glucose 115 mg/dL (65-115); NT Pro B Type Natriuretic Pept 5443 pg/mL (0-125); Osmolality Calculated 287 mOsm/kg (285-295); Potassium 3.8 mmol/L (3.5-5.1); Sodium 135 mmol/L (136-145); Total Protein 6.4 g/dL (6.6-8.7)
--- NOTE | 2023-10-05 19:35 | USCV_ITS ---
Essie Alejandre Age: 73 Gender: F : 1950 Exam Date: 10/05/2023 19:57 Ordering Phys: Paul Manuel MD Technologist: ANDI Exam Location: [facility] [place] Indication: patient presenting with weakness, SAMUEL, was seen our ER last week for same symptoms. BP: 148 / 97 HR: 69 Rhythm: Paced rhythm with Atrial fibrillation Technical Quality: Adequate MEASUREMENTS (Male / Female) Normal Values 2D ECHO LV Diastolic Diameter PLAX 5.3 cm 4.2 - 5.9 / 3.9 - 5.3 cm IVS Diastolic Thickness 1.1 cm 0.6 - 1.0 / 0.6 - 0.9 cm IVS Systolic Thickness 1.3 cm LVPW Diastolic Thickness 1.2 cm 0.6 - 1.0 / 0.6 - 0.9 cm LVPW Systolic Thickness 1.2 cm LVOT Diameter 1.6 cm LV Ejection Fraction 2D Teich 24.9 % LV Ejection Fraction MOD 2C 27.9 % LV Ejection Fraction 2C AL 25.8 % LA Diameter 5.0 cm LA Sys Volume AL 97.6 cm cubed LA Sys Volume Index AL 49.6 cm cubed/m squared Aorta at Sinotubular Diameter 2.5 cm IVC Diameter 2.5 cm M-MODE LA Ao Ratio MM 1.9 AV Cusp Separation MM 1.3 cm DOPPLER AV Peak Velocity 128.0 cm/s LVOT Peak Velocity 46.0 cm/s AV Area Cont Eq vti 0.8 cm squared AV Area Cont Eq pk 0.7 cm squared MV Peak Velocity 137.0 cm/s MV Area PHT 4.6 cm squared Mitral E to A Ratio 0.0 TV Peak Velocity 265.7 cm/s TR Peak Velocity 290.0 cm/s TR Peak Gradient 33.6 mmHg TV Peak E Velocity 73.0 cm/s Right Atrial Pressure 15.0 mmHg Pulmonary Artery Systolic Pressu 48.6 mmHg PV Peak Velocity 77.0 cm/s FINDINGS Left Ventricle The ventricle is mildly to moderately enlarged. There is global left ventricular hypokinesis. This is severe in nature. The ejection fraction is probably in the 30% range at most. Diastolic function cannot be determined due to the irregular rhythm. Right Ventricle The right ventricle is mildly enlarged and there is mild right ventricular hypokinesis.mild pulmonary hypertension, RVSP 48.6 mmHg. Right Atrium Moderately increased right atrial size. Left Atrium Moderately increased left atrial size. Mitral Valve Structurally normal mitral valve. Mild-moderate mitral valve regurgitation. Aortic Valve Structurally normal trileaflet aortic valve. No aortic valve stenosis. Mild aortic valve regurgitation. Tricuspid Valve Structurally normal tricuspid valve. Moderate tricuspid valve regurgitation. Pulmonic Valve Pulmonic valve not well visualized. Mild pulmonary valve regurgitation. Pericardium Normal pericardium without effusion. Aorta Normal ascending aorta dimension. IVC Severely dilated IVC. Dilated IVC with decreased respiratory variation. Right atrial pressure 15 mmHg. CONCLUSIONS The ventricle is mildly to moderately enlarged. There is global left ventricular hypokinesis. This is severe in nature. The ejection fraction is probably in the 30% range at most. Diastolic function cannot be determined due to the irregular rhythm. The right ventricle is mildly enlarged and there is mild right ventricular hypokinesis.mild pulmonary hypertension, RVSP 48.6 mmHg. Moderately increased right atrial size. Moderately increased left atrial size. Structurally normal mitral valve. Mild-moderate mitral valve regurgitation. Structurally normal trileaflet aortic valve. No aortic valve stenosis. Mild aortic valve regurgitation. Severely dilated IVC. Dilated IVC with decreased respiratory variation. Right atrial pressure 15 mmHg. The previous study was done 3 months ago. There appears to be a slight reduction in the left ventricular ejection fraction since then, however there is difficulty in comparing the 2 studies due to the technical difficulties. Otherwise, no change. Dr. Maurisio Hammond MD (Electronically Signed) Final Date: 06 Oct 2023 08:42 S
--- NOTE | 2023-10-05 19:35 | ECG_ITS ---
[facility] Test Date: 2023-10-05 Pat Name: Essie Alejandre Department: Room: Gender: Female Quality Review Specialist: : 1950 Requested By: Paul Manuel Order Number: [id number] Jj MD: Maurisio Hammond M.D. Measurements Intervals [place] Rate: 75 P: 0 [place]: 0 QRS: -71 QRSD: 160 T: 105 QT: 480 QTc: 536 Interpretive Statements ELECTRONIC VENTRICULAR PACEMAKER ABNORMAL RHYTHM ECG Compared to ECG 10/05/2023 13:36:17 No significant changes Electronically Signed On 10-06-2023 15:45:03 CDT by Maurisio Hammond M.D. [id number]
--- NOTE | 2023-10-05 19:39 | PM.HP ---
Providers/Chief Complaint Primary Care Provider: Derek Dowd DO Chief Complaint: fluid build up History of Present Illness Essie Alejandre is a 73 year old female with past medical history of congestive heart failure with last known EF of 40 to 45%, post CABG, post angioplasty of in-stent restenosis of SVG to diagonal in 2022, pulmonary embolism chronically on Eliquis, hypertension who presents to the ER today because of worsening difficulty in breathing getting exacerbated on minimal ambulation, conversation or laying down flat getting worse over the last 3 to 4 weeks. As per patient she saw her health facilities surveyor 1 week ago when her dose of Lasix was increased. She will ran out of her medication since Tuesday. Today is Tuesday. She has not taken her Lasix since Tuesday. And has been getting worse so she presented to the ER. She has gained around 20 pounds of weight. Complaining of abdominal pain and decreased appetite along with nausea. Denies any chest pain, palpitations, fever or sick contacts. States she has been getting more drowsy and sleepy during the day. She feels sometimes her eyes are closing up in between during the day. She had 1 episode of nausea and belching earlier in the morning after which she developed redness in the left eye. Denies any changes in her vision. Review of Systems General: Reports: 10 or more systems reviewed and unremarkable except in HPI and below Const: Denies: fever(s), chills, body aches, change in appetite, change in weight, malaise, night sweats, diaphoresis, change in sleep pattern, daytime sleepiness or snoring Eyes: Denies: change in vision, blurry vision, photophobia, eye discomfort or eye discharge ENMT: Denies: throat pain, enlarged tonsils, hoarseness, mouth pain, oral sores, dry mouth, tinnitus, nasal congestion or post nasal drip Card: Denies: chest pain, palpitations, irregular heart rhythm, edema, swelling of feet/ankles, lightheadedness, syncope, pre-syncope, dyspnea on exertion, orthopnea, leg pain with exertion or acrocyanosis Resp: Denies: dyspnea, productive cough, non-productive cough, wheezing, stridor, pain on inspiration, change in phlegm color, hemoptysis or chest congestion GI: Denies: abdominal pain, nausea, vomiting, hematemesis, coffee ground emesis, dysphagia, heartburn, diarrhea, constipation, bloating, GI cramping, change in bowel habits, pain on defecation, hematochezia or melena : Denies: flank pain, dysuria, urinary frequency, urinary urgency, urinary hesitancy, nocturia or hematuria Musc: Denies: neck pain, back pain, extremity pain, joint pain, joint swelling, joint redness, joint stiffness or limited range of motion Neuro: Denies: headache(s), numbness in extremities, weakness in extremities, sensory changes, lack of coordination, difficulty walking, frequent falls, dizziness, vertigo, confusion, Slurred speech present, difficulty communicating thoughts or seizure-like activity Psych: Denies: anxiety, depression, mood swings, panic attacks, hopelessness or irritability Endo: Denies: polyuria, polydipsia, tired all the time, cold intolerance, excessive sweating, flushing or heat intolerance Jerardo/Lymph: Denies: easy bruising or easy bleeding All/Imm: Denies: tongue swelling, facial swelling or acute wheezing Medications/Allergies Home Medications Medication Instructions Recorded Confirmed Last Taken Type multivitamin 1 tab PO QAM 06/08/21 10/05/23 10/05/23 History omega-3 fatty acids 1,000 mg 1,000 mg PO DAILY 03/24/22 10/05/23 10/05/23 History capsule acetaminophen 650 mg 1,300 mg PO BID 09/17/22 10/05/23 10/05/23 History tablet,extended release (Tylenol Arthritis Pain) nitroglycerin 0.4 mg sublingual 0.4 mg sublingual Q5M PRN Chest 12/06/22 10/05/23 Unknown Rx tablet (Nitrostat) Pain #30 tabs atorvastatin 40 mg tablet 40 mg PO QAM #90 tabs 12/13/22 10/05/23 10/05/23 Rx sertraline 100 mg tablet 100 mg PO QAM #90 tabs 12/13/22 10/05/23 10/05/23 Rx isosorbide mononitrate 60 mg 60 mg PO BID 04/23/23 10/05/23 10/05/23 History tablet,extended release 24 hr pantoprazole 40 mg tablet,delayed 40 mg PO BID 04/23/23 10/05/23 10/05/23 History release allopurinol 100 mg tablet 400 mg (4 x 100 mg) PO DAILY #120 04/27/23 10/05/23 09/30/23 Rx tabs lisinopril 10 mg tablet 10 mg PO DAILY #90 tabs 05/03/23 10/05/23 09/30/23 Rx ascorbic acid (vitamin C) 500 mg See Rx Instructions .Route .COMPLEX 06/06/23 10/05/23 10/05/23 History tablet (Vitamin C) bisacodyl 5 mg tablet,delayed 5 mg PO DAILY PRN Constipation 06/06/23 10/05/23 08/24/23 History release (Dulcolax (bisacodyl)) ferrous sulfate 325 mg (65 mg See Rx Instructions .Route .COMPLEX 06/06/23 10/05/23 10/05/23 History iron) tablet (Iron (ferrous sulfate)) furosemide 40 mg tablet 80 mg PO QAM 06/06/23 10/05/23 10/05/23 History albuterol sulfate 90 mcg/actuation 2 puff inhalation QID PRN 06/29/23 10/05/23 08/30/23 Rx aerosol inhaler Shortness Of Breath #8.5 grams alprazolam 0.5 mg tablet 0.5 mg PO DAILY PRN Anxiety #20 06/29/23 10/05/23 08/29/23 Rx tabs galantamine 4 mg tablet 4 mg PO BID #60 tabs 07/15/23 10/05/23 10/05/23 Rx metoprolol tartrate 25 mg tablet 25 mg PO BID #120 tabs 07/19/23 10/05/23 10/05/23 Rx apixaban 5 mg tablet (Eliquis) 5 mg PO BID 08/01/23 10/05/23 10/05/23 History clopidogrel 75 mg tablet 75 mg PO BEDTIME 08/01/23 10/05/23 1 Day Ago History ~10/04/23 magnesium chloride 71.5 mg 71.5 mg PO BID #60 tabs 09/06/23 10/05/23 10/05/23 Rx (magnesium chloride) tablet,delayed release (Slow-Mag) potassium chloride 20 mEq 20 meq PO BID #60 tabs 09/06/23 10/05/23 10/05/23 Rx tablet,extended release(part/cryst) Allergies Allergy/AdvReac Type Severity Reaction Status Date / Time tizanidine Allergy Unknown ADR-Halluci Verified 10/05/23 13:36 nating levofloxacin [From Levaquin] Allergy ALGY-Redness Verified 10/05/23 13:36 of Skin Sulfa (Sulfonamide Allergy hives Verified 10/05/23 13:36 Antibiotics) adhesive tape AdvReac Mild Unknown Verified 10/05/23 13:36 PFSH Acute PFSH: Medical History Poor venous access Hearing loss associated with syndrome of both ears NSTEMI (non-ST elevated myocardial infarction) Elevated troponin I level Acute cystitis without hematuria Intracranial atherosclerosis Balance disorder Cognitive impairment Cardiac 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 therapy 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 ([employer]) in place Recurrent UTI CKD (chronic kidney disease) stage 3, GFR 30-59 ml/min 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 GERD (gastroesophageal reflux disease) Hyperlipidemia Iron deficiency anemia Gout Sleep apnea Vertebral artery stenosis Left bundle branch block Right internal carotid artery aneurysm Vertebrobasilar insufficiency Atrial fibrillation PAD (peripheral artery disease) Renal artery stenosis Cardiomyopathy CHF (congestive heart failure) Anticoagulant long-term use BASIA (obstructive sleep apnea) HTN (hypertension) Chronic renal insufficiency, stage II (mild) Surgical History Status post cholecystectomy Hx of arthroscopy of right knee S/P appendectomy S/P section S/P hysterectomy Status post tubal ligation Status post aorto-coronary artery bypass graft S/P CABG (coronary artery bypass graft) S/P angioplasty with stent S/P ICD (internal cardiac 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) procedure H/O cardiac radiofrequency ablation Family History Father , AT AGE 65 Hyperlipidemia CAD (coronary artery disease) Hypertension Rheumatoid arthritis Mother , AT AGE 65 Hyperlipidemia CAD (coronary artery disease) Hypertension Diabetes Sister Hyperlipidemia CAD (coronary artery disease) Hypertension Diabetes Other Cancer Social History Smoking and tobacco/nicotine status: former use of tobacco/nicotine Second hand smoke exposure: No Alcohol intake: never Substance/Drug Use: never Marital status: Current occupational status: retired Female Reproductive History: Spontaneous abortions: No Vitals/I&O/Wt Last Vital Signs Pulse 70 10/05/23 19:28 BP 148/97 10/05/23 19:28 Pulse Ox 97 10/05/23 19:28 O2 Del Method Room Air 10/05/23 19:28 10/05/23 10/05/23 10/05/23 06:59 14:59 22:59 Output Total 775 / 775 Balance -775 / -775 Weight last 48 hrs Weight 82.1 kg Physical Exam Narrative: General: No acute distress, AO x3, pleasant, short of breath HEENT: PERRLA, pupils bilaterally equal and reactive Chest: Normal vesicular breath sounds all over lung arriaga, fine crackles present up to mid chest bilaterally, good equal air entry CVS: S1-S2 regular, pansystolic murmur present at apex radiating to anterior axillary line, fourth intercostal space retrosternal on the left side radiating to pericardium, no tachycardia, S3 gallops, no rubs Abdomen: Soft, nontender, no organomegaly, bowel sounds present Neuro: No focal deficits, no facial deformity, AO x3, power 5/5 in all limbs Data 10/06/23 03:34 10/06/23 03:34 Other data: 11/29/22 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 1. Critical in-stent restenosis of SVG to diagonal artery prior stent.? Status post successful revascularization with balloon angioplasty. Severe stenosis of SVG to diagonal artery proximal to prior stent. S/p successful revascularization with 1 stent.. ? 3. Patient has prior CABG. Recommendations ? * Continue plavix and eliquis. ? * High intensity statin therapy. ? * Outpatient cardiology follow up in 2-4 weeks. ? * Aggressive risk factor modification. Interventional RX Recommendation: ? ? PCI w/o planned CABG Diagnostic RX Recommendation: ? ? PCI w/o planned CABG 09/21/22 OLVIN LV systolic function is mildly reduced with EF of 45 to 50%. ?Pacemaker lead is seen in RV and RA.? No evidence of vegetation. ?Valvular structures not for evidence of vegetation. ?Mild tricuspid regurgitation.? Mild mitral regurgitation. ?Mild to moderate aortic plaque 09/18/22 Echo limited Diffuse hypokinesia left ventricular ejection fraction of 41%. ?Mildly dilated LV cavityModerately increased left atrial size. ? Mildly increased right atrial size. ?Thickened mitral valve. Trace to mild mitral valve?regurgitation. ?Thickened aortic valve. ?Mild pulmonary valve regurgitation. ?Mildly dilated IVC. ?There is no pericardial effusion. ?There are no intracardiac masses. ?Compared to the study from 02/08/2022, there is a drop in the LV ?systolic function.? In 2019, the LV ejection fraction was around ?25%. A&P Assessment and plan (1) Congestive heart failure: Last echocardiogram from 09/28 showed an EF of 45 to 50%, mild TR, mild MR. Patient also had cardiac angiogram in September she was found to have a critical in-stent restenosis of SVG to diagonal in November which was after this previous echo. NYHA class III-IV currently. Fluid restriction up to 1500 cc. Estes catheterization. IV Lasix 60 mg twice daily. Daily weights, strict input output charting. Repeat echocardiogram. Qualifiers: Heart failure chronicity: acute on chronic Heart failure type: diastolic Qualified Code(s): I50.33 - Acute on chronic diastolic (congestive) heart failure (2) Cardiomyopathy: Qualifiers: Cardiomyopathy type: ischemic Qualified Code(s): I25.5 - Ischemic cardiomyopathy (3) Status post aorto-coronary artery bypass graft: No active chest pain. But heart failure has been getting worse. Echocardiogram as above. Depending on the echocardiogram we will plan for further assessment. Troponin cycle. Continue with home dose of clopidogrel and Eliquis. Appreciate recent A1c, lipid panel. (4) Cardiac 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 therapy 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 ([facility]) in place: Check EKG to monitor QRS (5) Atrial fibrillation: Heart rate controlled. Continue with home dose of metoprolol. (6) Pulmonary embolism: (7) Anticoagulant long-term use: Plan Hypertension: Goal blood pressure less than 140/90 mmHg. Hold off on antihypertensives for now including lisinopril and Imdur for maximum diuretic effect. Continue with home dose of metoprolol. CODE STATUS: will be the DPOA. Patient does not want any kind of intubation but would be okay for a short time of chest compression. Limited resuscitation. Cardiac diet Eliquis will be sufficient for DVT prophylaxis Protonix for PUD prophylaxis at home dose of twice daily. Admit to CSU. Attestations Medical Necessity Statement*: Admission for more than 2 midnights for management of congestive heart failure NYHA class IV in a patient with history of ischemic cardiomyopathy, post CABG Diagnoses Acute on chronic diastolic congestive heart failure I50.33 Heart failure chronicity: acute on chronic Heart failure type: diastolic Ischemic cardiomyopathy I25.5 Cardiomyopathy type: ischemic Status post aorto-coronary artery bypass graft Z95.1 Cardiac 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 therapy 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 ([facility]) in place Z95.810 Atrial fibrillation I48.91 Pulmonary embolism I26.99 Anticoagulant long-term use Z79.01
[2023-10-05 19:47] LABS: Add Urine Microscopic? NO; Charge for UA Resulting for Rev
[2023-10-05 19:49] LABS: Bilirubin Urine Neg (Negative); Blood Urine Neg (Negative); Glucose Urine UA Norm (Normal); Ketones Urine Negative (Negative); Leukocyte Esterase Urine Negative (Negative); Nitrate Urine Negative (Negative); Protein Urine Neg (Negative); Specific Gravity, Urine 1.015 (1.005-1.030); Urine Appearance Clear (CLEAR); Urine Color Yellow (Yellow); Urobilinogen Urine Norm (Negative); pH Urine 5 (5-7)
[2023-10-05 20:11] LABS: Troponin(5th) Baseline 37 ng/L (0-10)
[2023-10-05 20:20] LABS: Thyroid Stimulating Hormone 5.13 uIU/mL (0.27-4.20)
--- NOTE | 2023-10-05 21:23 | ECG_ITS ---
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 Measurements Intervals [place] Rate: 85 P: 0 MO: 0 QRS: -67 QRSD: 169 T: 89 QT: 469 QTc: 561 Interpretive Statements ELECTRONIC VENTRICULAR PACEMAKER Compared to ECG 10/05/2023 19:39:08 No significant changes Electronically Signed On 10-06-2023 7:58:13 CDT by Kel Molina M.D. [id number]
[2023-10-05] MEDS: clopidogrel 75 mg Tablet PO (21:36)
[2023-10-05 22:41] LABS: Troponin 5 2HR 36.55 ng/L (0-10)
[2023-10-05 22:44] LABS: Troponin 5 2HR Delta -0.45 ABS# (0-10)
[2023-10-06] VITALS (61 sets, daily range): BP systolic 97–144; BP diastolic 53–98; PULSE 69–82; RESP 15–41; TEMP 36.6–37.1; O2SAT 93–97
--- NOTE | 2023-10-06 01:34 | ECG_ITS ---
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 Measurements Intervals [place] Rate: 73 P: 0 TN: 0 QRS: -69 QRSD: 175 T: 107 QT: 489 QTc: 539 Interpretive Statements ELECTRONIC VENTRICULAR PACEMAKER ABNORMAL RHYTHM ECG Compared to ECG 10/05/2023 21:23:40 No significant changes Electronically Signed On 10-06-2023 15:53:32 CDT by Maurisio Hammond M.D. [id number]
[2023-10-06 04:29] LABS: Basophils # 0.1 10^3/uL (0.0-0.1); Eosinophils # 0.3 10^3/uL (0.0-0.8); Eosinophils % 6.7 %; Hematocrit 32.6 % (36-47); Lymphocytes # 1.2 10^3/uL (0.8-4.8); Lymphocytes % 23.6 %; Mean Corpuscular Hemoglobin 31.1 pg (27-33); Mean Corpuscular Volume 100.3 fl (85-98); Mean Platelet Volume 11.2 fL (7.4-10.4); Monocytes # 0.7 10^3/uL (0.2-0.9); Monocytes % 13.7 %; Neutrophils % 54.6 %; Nucleated Red Blood Cells % 0 %; Platelet Count 185 10^3/cmm (157-399); Red Blood Count 3.25 10^6/uL (3.85-5.65); Red Cell Distribution Width 16.9 % (12.1-15.1); White Blood Count 4.95 10^3/uL (3.29-11.43)
[2023-10-06 04:43] LABS: Troponin T (5th) Once 37 ng/L (0-10)
[2023-10-06] MEDS: FUROsemide 10 mg/mL SDV 10mL 60 MG IVP ×2 (04:45→19:07)
[2023-10-06] MEDS: atorvastatin 40 mg Tablet PO (04:47)
[2023-10-06] MEDS: sertraline 100 mg Tablet PO (04:48)
[2023-10-06 04:50] LABS: Alanine Aminotransferase 19 U/L (0-33); Albumin Level 3.6 g/dL (3.5-5.2); Alkaline Phosphatase 328 U/L (35-105); Anion Gap 15.5 (5-19); Aspartate Amino Transferase 49 U/L (0-32); Blood Urea Nitrogen 30 mg/dL (8-23); Calcium 9.2 mg/dL (8.5-10.5); Carbon Dioxide 26 mmol/L (22-29); Chloride 102 mmol/L (98-107); Globulin 2.3 g/dL (1.3-4.6); Glucose 103 mg/dL (65-115); Magnesium 1.5 mg/dL (1.7-2.3); Osmolality Calculated 296 mOsm/kg (285-295); Phosphorus 3.4 mg/dL (2.5-4.5); Potassium 3.5 mmol/L (3.5-5.1); Sodium 140 mmol/L (136-145); Total Bilirubin 1.7 mg/dL (0.15-1.2); Total Protein 5.9 g/dL (6.6-8.7)
[2023-10-06 04:53] LABS: Creatinine Clr Calc Pharmacy 45.6313
[2023-10-06] MEDS: allopurinol 100 mg Tablet 400 MG PO (10:08)
[2023-10-06] MEDS: apixaban 5 mg Tablet PO ×2 (10:09→19:06)
[2023-10-06] MEDS: metoprolol tartrate 25 mg Tablet PO ×2 (10:09→19:06)
[2023-10-06] MEDS: pantoprazole DR 40 mg Tablet PO ×2 (10:09→19:06)
[2023-10-06] MEDS: potassium chloride ER 20 mEq Tablet PO ×2 (10:09→19:06)
[2023-10-06 12:02] LABS: T3 Free 2.1 PG/ML (2.0-4.4)
--- NOTE | 2023-10-06 12:48 | ECG_ITS ---
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 Interpretive Statements NAME OF STUDY: LEXISCAN SESTAMIBI STRESS TEST INDICATION: [unstable angina , ] Procedure: At the baseline, the blood pressure was 129/74 mmHg with a heart rate of 74 bpm. The electrocardiogram showed sinus rhythm with intermittent paced rhythm and left bundle branch block. The Lexiscan was infused over a period of 20 seconds. A total of 0.4 mg of Lexiscan was infused. The stress phase was continued for a total of 5 minutes. Heart rate was at the end of stress phase was 70 bpm and a blood pressure of 108/83 mmHg. The EKG at the peak infusion revealed paced rhythm. Sestamibi was injected 20 seconds after the Lexiscan infusion. Blood pressure at the end of recovery phase was 115/80 mmHg with a heart rate of 72 bpm. Conclusion: 1. Normal EKG response to Lexiscan infusion 2. No Lexiscan induced chest pain or cardiac arrhythmia. 3. Normal blood pressure and heart rate response. 4. Sestamibi/sestamibi perfusion scan pending; see separate report. Electronically Signed On 10-24-2023 8:49:02 CDT by Kel Molina M.D. [id number]
--- NOTE | 2023-10-06 12:49 | PM.PN ---
Subjective Subjective: No acute events overnight. Patient laying comfortably in bed with head of the bed elevated up to 30 decrease on room air. Seen with at bedside. States she is feeling slightly better. But still getting out of breath on minimal ambulation. Vitals/I&O/Wt Last Vital Signs Temp 97.9 F 10/06/23 11:52 Pulse 75 10/06/23 11:52 Resp 21 H 10/06/23 11:52 BP 138/84 10/06/23 11:52 Pulse Ox 95 10/06/23 11:52 O2 Del Method Room Air 10/06/23 11:52 10/05/23 10/06/23 10/06/23 22:59 06:59 14:59 Intake Total 360 / 360 480 / 480 Output Total 775 / 775 2250 / 3025 1300 / 1300 Balance -415 / -415 -2250 / -2665 -820 / -820 Weight last 48 hrs Weight 83.733 kg Weight 82.554 kg Weight 82.554 kg Weight 82.1 kg Physical Exam Narrative: General: No acute distress, AO x3, HEENT: PERRLA, pupils bilaterally equal and reactive Chest: Normal vesicular breath sounds all over lung arriaga, fine crackles present up to lower zone chest bilaterally, good equal air entry CVS: S1-S2 regular, pansystolic murmur present at apex radiating to anterior axillary line, fourth intercostal space retrosternal on the left side radiating to pericardium, no tachycardia, S3 gallops, no rubs Abdomen: Soft, nontender, no organomegaly, bowel sounds present Neuro: No focal deficits, no facial deformity, AO x3, power 5/5 in all limbs Urinary Catheter Management: Estes: Cath Placed During This Visit: yes Reason for Continuing Indwelling Catheter: Accurate Measurement of Urinary Output in Critically Ill Patients Urinary Catheter Date of Insertion: 10/05/23 Urinary Catheter Time of Insertion: 19:42 Data 10/06/23 03:34 10/06/23 03:34 A&P Assessment and plan (1) Congestive heart failure: Last echocardiogram from 09/28 showed an EF of 45 to 50%, mild TR, mild MR. Patient also had cardiac angiogram in September she was found to have a critical in-stent restenosis of SVG to diagonal in November which was after this previous echo. Overall 2.5 to 3 L negative since admission. Fluid restriction up to 1500 cc. IV Lasix 60 mg twice daily. Daily weights, strict input output charting. Patient is on aggressive diuresis. Will monitor electrolytes. Replace potassium accordingly. Replace magnesium today. Monitor creatinine. Currently stable. Repeat echocardiogram shows EF down to 30%, severe global LV hypokinesia, diastolic dysfunction, mildly dilated right ventricular with mild right ventricular hypokinesis with pulmonary hypertension, RVSP of 48 mmHg, moderately increased LA and RA size, mild to moderate MR, severely dilated IVC. Qualifiers: Heart failure chronicity: acute on chronic Heart failure type: diastolic Qualified Code(s): I50.33 - Acute on chronic diastolic (congestive) heart failure (2) Cardiomyopathy: Qualifiers: Cardiomyopathy type: ischemic Qualified Code(s): I25.5 - Ischemic cardiomyopathy (3) Status post aorto-coronary artery bypass graft: No active chest pain. But heart failure has been getting worse. Appreciate echocardiogram as above. Troponin slightly flat. Patient denies any active chest pain. Because of refractory congestive heart failure will plan for Lexiscan stress test in AM. N.p.o. after midnight. Continue with home dose of clopidogrel and Eliquis. Appreciate recent A1c, lipid panel. 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 Will continue to monitor. (5) Atrial fibrillation: Heart rate controlled. Continue with home dose of metoprolol. (6) Pulmonary embolism: (7) Anticoagulant long-term use: Plan Hypertension: Goal blood pressure less than 140/90 mmHg. Hold off on antihypertensives for now including lisinopril and Imdur for maximum diuretic effect. Continue with home dose of metoprolol. Abdominal pain/nausea: Most likely in setting of congestive hepatomegaly along with congestive gastropathy. Continue with IV diuretics. Protonix, Zofran as needed. BERNADETTE: Baseline creatinine seems to be 0.9. Currently 1.2. Most likely in setting of cardiorenal syndrome. Will continue to monitor BMP as above. Check urine lites, urine creatinine, urine eosinophils. CODE STATUS: will be the DPOA. Patient does not want any kind of intubation but would be okay for a short time of chest compression. Limited resuscitation. Cardiac diet Eliquis will be sufficient for DVT prophylaxis Protonix for PUD prophylaxis at home dose of twice daily. Attestations Medical Necessity Statement*: Requires further hospitalization for management of NYHA class III-IV congestive heart failure in a patient with history of ischemic cardiomyopathy post CABG Diagnoses Acute on chronic diastolic congestive heart failure I50.33 Heart failure chronicity: acute on chronic Heart failure type: diastolic Ischemic cardiomyopathy I25.5 Cardiomyopathy type: ischemic Status post aorto-coronary artery bypass graft Z95.1 Cardiac 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 therapy 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 ([employer] M[employer] TE[employer]ER-D) in place Z95.810 Atrial fibrillation I48.91 Pulmonary embolism I26.99 Anticoagulant long-term use Z79.01
[2023-10-06] MEDS: magnesium sulfate premix 2 GM/50 ML PIGGYBACK IV (12:54)
[2023-10-06 17:16] LABS: Anion Gap 13.5 (5-19); Blood Urea Nitrogen 26 mg/dL (8-23); Calcium 8.4 mg/dL (8.5-10.5); Carbon Dioxide 28 mmol/L (22-29); Chloride 102 mmol/L (98-107); Creatinine Clr Calc Pharmacy 42.4167; Glucose 140 mg/dL (65-115); Osmolality Calculated 297 mOsm/kg (285-295); Potassium 3.5 mmol/L (3.5-5.1); Sodium 140 mmol/L (136-145)
[2023-10-06 17:33] LABS: Potassium, Radom Urine 21 mmol/L; Urine Creatinine 29 mg/dL (28-217); Urine Random Chloride 91 mmol/L; Urine Random Sodium 79 mmol/L
[2023-10-06] MEDS: ondansetron 2 mg/ML SDV 2 mL 4 MG IVP (19:19)
[2023-10-06 20:00] LABS: Eosinophil Urine No Eosinophils Seen
[2023-10-06] MEDS: clopidogrel 75 mg Tablet PO (21:14)
[2023-10-07] VITALS (10 sets, daily range): BP systolic 111–138; BP diastolic 58–86; PULSE 70–87; RESP 16–27; TEMP 36.6–36.9; O2SAT 93–95; BMI 29.6
[2023-10-07] MEDS: acetaminophen 325 mg Tablet 650 MG PO ×2 (03:16→15:06)
[2023-10-07] MEDS: ondansetron 2 mg/ML SDV 2 mL 4 MG IVP (03:16)
[2023-10-07 04:29] LABS: Basophils # 0.1 10^3/uL (0.0-0.1); Basophils % 1.1 %; Eosinophils # 0.4 10^3/uL (0.0-0.8); Eosinophils % 6.5 %; Hematocrit 33.5 % (36-47); Lymphocytes # 1.2 10^3/uL (0.8-4.8); Lymphocytes % 21.1 %; Mean Corpuscular HGB Conc 30.4 g/dL (30-55); Mean Corpuscular Hemoglobin 31.1 pg (27-33); Mean Corpuscular Volume 102.1 fl (85-98); Monocytes # 0.7 10^3/uL (0.2-0.9); Neutrophils % 58.1 %; Nucleated Red Blood Cells % 0 %; Platelet Count 174 10^3/cmm (157-399); Red Blood Count 3.28 10^6/uL (3.85-5.65); White Blood Count 5.68 10^3/uL (3.29-11.43)
[2023-10-07 04:57] LABS: Alanine Aminotransferase 18 U/L (0-33); Albumin Level 3.7 g/dL (3.5-5.2); Alkaline Phosphatase 325 U/L (35-105); Anion Gap 13.7 (5-19); Aspartate Amino Transferase 43 U/L (0-32); Blood Urea Nitrogen 28 mg/dL (8-23); Calcium 8.9 mg/dL (8.5-10.5); Carbon Dioxide 30 mmol/L (22-29); Chloride 101 mmol/L (98-107); Globulin 2.9 g/dL (1.3-4.6); Glucose 103 mg/dL (65-115); Osmolality Calculated 298 mOsm/kg (285-295); Potassium 3.7 mmol/L (3.5-5.1); Sodium 141 mmol/L (136-145); Total Bilirubin 1.7 mg/dL (0.15-1.2); Total Protein 6.6 g/dL (6.6-8.7)
[2023-10-07 04:59] LABS: Magnesium 1.4 mg/dL (1.7-2.3)
[2023-10-07 05:11] LABS: Creatinine Clr Calc Pharmacy 50.1289
[2023-10-07] MEDS: FUROsemide 10 mg/mL SDV 10mL 60 MG IVP ×2 (05:57→17:56)
[2023-10-07] MEDS: sertraline 100 mg Tablet PO (05:58)
[2023-10-07] MEDS: atorvastatin 40 mg Tablet PO (05:58)
[2023-10-07] MEDS: regadenoson 0.4 Mg/5 ml Syringe 0.400000000000000022 MG IVP (07:45)
--- NOTE | 2023-10-07 08:00 | NMCV_ITS ---
NM shireen perf SPECT r/s* [id number] Essie Alejandre Age: 73 Gender: F : 1950 Exam Date: 10/07/2023 08:00 Ordering Phys: Paul Manuel MD Technologist: MARILYN Sneed Exam Location: [facility] Indications: CHEST PAIN STRESS TEST Please see separate stress test report in [facility] for full findings IMAGE PROTOCOL Rest/Stress 1 Lexiscan Day Radiopharmaceutical Dose (mCi) Administration Site Administered by Rest: Tc-99m 10.7 IV MARILYN Pozo Sestamibi Stress:Tc-99m 32.4 IV MARILYN Pozo Sestamibi Rest: 07-Oct-2023 60 Discovery 630 Stress: 07-Oct-2023 30 Discovery 630 0.4mg Lexiscan. Images obtained in supine and prone position. SPECT RESULTS Technical Quality: Excellent Raw Data Analysis: Normal Image Corrections: No attenuation or motion correction applied Summed Stress Score: 21 Summed Rest Score: 20 Summed Difference Score: 3 PERFUSION FINDINGS Large areas of mostly fixed perfusion defects noted in the apical, anterior, inferolateral, anterolateral and inferior kee. This is consistent with large areas of prior infarct with minimal jodi-infarct ischemia all 3 coronary artery territories FUNCTIONAL RESULTS (calculated via Gated SPECT) Stress Image LV EF (%): 41 Stress EDV (mL):153 TID: 1 Stress ESV (mL):91 FUNCTIONAL FINDINGS: LV systolic function is moderately reduced with EF of 41% IMPRESSIONS 1. Abnormal myocardial perfusion imaging with large areas of prior infarct with minimal jodi-infarct ischemia seen in all 3 coronary artery territories. 2. LV systolic function is moderately reduced with EF of 41%. Kel Molina MD (Electronically Signed) Final Date: 07 Oct 2023 11:46 S
[2023-10-07] MEDS: allopurinol 100 mg Tablet 400 MG PO (09:01)
[2023-10-07] MEDS: metoprolol tartrate 25 mg Tablet PO ×2 (09:01→17:56)
[2023-10-07] MEDS: potassium chloride ER 20 mEq Tablet PO ×2 (09:01→17:57)
[2023-10-07] MEDS: pantoprazole DR 40 mg Tablet PO ×2 (09:01→17:56)
[2023-10-07] MEDS: apixaban 5 mg Tablet PO ×2 (09:01→17:56)
--- NOTE | 2023-10-07 09:39 | PC.SOCIAL ---
IMM Update pg 2 of IMM updated and reviewed w/ patient. Copy provided and copy dated, initialed and placed in chart.
--- NOTE | 2023-10-07 12:39 | P.PN_ITS ---
Subjective 2 Subjective: No acute events overnight. Patient has remained hemodynamically stable and afebrile. Event cardiac stress test today. On examination laying comfortably in bed with head of the bed completely flat. Denies of any difficulty in breathing. States feeling a lot better. Vitals/I&O/Wt Last Vital Signs Temp 98.0 F 10/07/23 11:45 Pulse 70 10/07/23 11:45 Resp 27 H 10/07/23 11:45 BP 111/60 10/07/23 11:45 Pulse Ox 95 10/07/23 11:45 O2 Del Method Room Air 10/07/23 11:45 10/06/23 10/07/23 10/07/23 22:59 06:59 14:59 Output Total 1250 / 2550 1575 / 4125 1330 / 1330 Balance -1250 / -2020 -1575 / -3595 -1330 / -1330 Weight last 48 hrs Weight 80.853 kg Weight 81.692 kg Weight 83.733 kg Weight 82.554 kg Weight 82.554 kg Weight 82.1 kg Physical Exam 2 Narrative: General: No acute distress, AO x3, HEENT: PERRLA, pupils bilaterally equal and reactive Chest: Normal vesicular breath sounds all over lung arriaga, minimal fine crackles bilaterally , good equal air entry CVS: S1-S2 regular, pansystolic murmur present at apex radiating to anterior axillary line, fourth intercostal space retrosternal on the left side radiating to pericardium, no tachycardia, S3 gallops, no rubs Abdomen: Soft, nontender, no organomegaly, bowel sounds present Neuro: No focal deficits, no facial deformity, AO x3, power 5/5 in all limbs Urinary Catheter Management: Estes: Cath Placed During This Visit: yes Reason for Continuing Indwelling Catheter: Acute Urinary Retention or Obstruction Urinary Catheter Date of Insertion: 10/05/23 Urinary Catheter Time of Insertion: 19:42 Data 10/07/23 04:07 10/07/23 04:07 A&P Assessment and plan (1) Congestive heart failure: Last echocardiogram from 09/28 showed an EF of 45 to 50%, mild TR, mild MR. Patient also had cardiac angiogram in September she was found to have a critical in- stent restenosis of SVG to diagonal in November which was after this previous echo. Overall 2.5 to 3 L negative since admission. Fluid restriction up to 1500 cc. IV Lasix 60 mg twice daily. Daily weights, strict input output charting. Patient is on aggressive diuresis. Will monitor electrolytes. Replace potassium accordingly. Replace magnesium today. Monitor creatinine. Currently stable. Repeat echocardiogram shows EF down to 30%, severe global LV hypokinesia, diastolic dysfunction, mildly dilated right ventricular with mild right ventricular hypokinesis with pulmonary hypertension, RVSP of 48 mmHg, moderately increased LA and RA size, mild to moderate MR, severely dilated IVC. Qualifiers: Heart failure chronicity: acute on chronic Heart failure type: d iastolic Qualified Code(s): I50.33 - Acute on chronic diastolic (congestive) heart failure (2) Cardiomyopathy: Qualifiers: Cardiomyopathy type: ischemic Qualified Code(s): I25.5 - Ischemic cardiomyopathy (3) Status post aorto-coronary artery bypass graft: No active chest pain. But heart failure has been getting worse. Appreciate echocardiogram as above. Troponin slightly flat. Patient denies any active chest pain. Because of refractory congestive heart failure will plan for Lexiscan stress test in AM. N.p.o. after midnight. Continue with home dose of clopidogrel and Eliquis. Appreciate recent A1c, lipid panel. (4) Cardiac 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 therapy 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 (CORRECTIONAL CASE MANAGER-D) in place: QRS found to be of 175 ms. Will continue to monitor. (5) Atrial fibrillation: Heart rate controlled. Continue with home dose of metoprolol. (6) Pulmonary embolism: (7) Anticoagulant long-term use: Plan Hypertension: Goal blood pressure less than 140/90 mmHg. Hold off on antihypertensives for now including lisinopril and Imdur for maximum diuretic effect. Continue with home dose of metoprolol. Abdominal pain/nausea: Most likely in setting of congestive hepatomegaly along with congestive gastropathy. Continue with IV diuretics. Protonix, Zofran as needed. BERNADETTE: Baseline creatinine seems to be 0.9. Currently 1.2. Most likely in setting of cardiorenal syndrome. Will continue to monitor BMP as above. Check urine lites, urine creatinine, urine eosinophils. Plan for the day: Continue with IV diuresis with 60 mg twice daily for 1 more day. Continue with fluid restriction. Plan to switch to oral Bumex tomorrow. Monitor electrolytes as patient is on aggressive IV diuresis. Overall 8 L negative since admission. Repeat BMP in afternoon. Replete potassium accordingly. 2 g IV magnesium. Repeat magnesium level in AM. Discussed in detail with the patient regarding lifestyle modification going forward. Appreciate Lexiscan stress test results which shows prior infarct area with a very minimal jodi-infarct ischemia in all 3 coronary territories. Will continue with medical management. BERNADETTE improving. Creatinine down to 1.1. Blood pressure stable. Continue to hold antihypertensives. Out of bed to chair. CODE STATUS: will be the DPOA. Patient does not want any kind of intubation but would be okay for a short time of chest compression. Limited resuscitation. Cardiac diet Eliquis will be sufficient for DVT prophylaxis Protonix for PUD prophylaxis at home dose of twice daily. Attestations 2 Medical Necessity Statement*: Requires further hospitalization for management of severe congestive heart failure with NYHA class III-IV as patient requires aggressive IV diuresis, monitoring electrolytes. Diagnoses Acute on chronic diastolic congestive heart failure I50.33 Heart failure chronicity: acute on chronic Heart failure type: diastolic Ischemic cardiomyopathy I25.5 Cardiomyopathy type: ischemic Status post aorto-coronary artery bypass graft Z95.1 Cardiac 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 therapy 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 (CORRECTIONAL CASE MANAGER-D) in place Z95.810 Atrial fibrillation I48.91 Pulmonary embolism I26.99 Anticoagulant long-term use Z79.01
[2023-10-07] MEDS: magnesium sulfate premix 2 GM/50 ML PIGGYBACK IV (12:40)
--- NOTE | 2023-10-07 15:32 | PC.NURSE ---
patient asked for tylenol for headache.
[2023-10-07 15:39] LABS: Anion Gap 12.4 (5-19); Blood Urea Nitrogen 26 mg/dL (8-23); Calcium 9.1 mg/dL (8.5-10.5); Carbon Dioxide 32 mmol/L (22-29); Chloride 98 mmol/L (98-107); Creatinine Clr Calc Pharmacy 49.2758; Glucose 134 mg/dL (65-115); Osmolality Calculated 295 mOsm/kg (285-295); Potassium 3.4 mmol/L (3.5-5.1); Sodium 139 mmol/L (136-145)
--- NOTE | 2023-10-07 20:18 | PC.NURSE ---
Spoke with regarding patients complaints of persistent headache, 8/10 pain. The patient denies any recent falls or head trauma, just states she gets headaches at times. The patient has been receiving tylenol 650mg here but it has not been helping with the headache. ordered one time dose IV tylenol and monitor response.
[2023-10-07] MEDS: acetaminophen 1,000 MG/100 ML PIGGYBACK 400 MG IV (20:43)
[2023-10-07] MEDS: clopidogrel 75 mg Tablet PO (20:47)
[2023-10-07] MEDS: bisacodyl 5 mg Tablet 10 MG PO (20:47)
--- NOTE | 2023-10-07 22:25 | CTR_ITS ---
PROCEDURE INFORMATION: Exam: CT Head Without Contrast Exam date and time: 10/07/2023 10:43 PM Age: 73 years old Clinical indication: Pain; Headache; Patient HX: C/O severe HERNANDEZ. Anticoagulated. ; Additional info: Persistent severe hearache, on ac TECHNIQUE: Imaging protocol: Computed tomography of the head without contrast. Radiation optimization: All CT scans at this facility use at least one of these dose optimization techniques: automated exposure control; mA and/or kV adjustment per patient size (includes targeted exams where dose is matched to clinical indication); or iterative reconstruction. COMPARISON: CT head wo con* [id number] 08/30/2023 12:24 PM RADIATION DOSE METRICS: Total DLP (mGy-cm): 1025.48 FINDINGS: Brain: Moderate diffuse white matter disease likely reflecting chronic microvascular ischemic changes. Cerebral ventricles: No ventriculomegaly. Paranasal sinuses: Visualized sinuses are unremarkable. No fluid levels. Mastoid air cells: Visualized mastoid air cells are well aerated. Bones: Unremarkable. No acute fracture. Soft tissues: Unremarkable. CT/CT head wo con* [id number] IMPRESSION: Negative for intracranial hemorrhage or mass effect.
[2023-10-07] MEDS: morphine 4 mg/mL SDV 1 mL 2 MG IVP (22:33)
--- NOTE | 2023-10-07 23:45 | PC.NURSE ---
Spoke with regarding patient continued complaint of headache, not relieved after IV tylenol. recommended give patient ordered morphine for headache and monitor response. ordered CT of head to rule out any bleed as patient is on blood thinners. PRN morphine did help alleviate headache pain to 3/[address] of head was negative for intracranial hemorrhage. made aware.
[2023-10-08 03:35] VITALS: BP 129/86; PULSE 71; RESP 12; TEMP 36.4; O2SAT 92
[2023-10-08 05:13] VITALS: PULSE 70
[2023-10-08 05:31] LABS: Basophils # 0.1 10^3/uL (0.0-0.1); Basophils % 0.9 %; Eosinophils # 0.4 10^3/uL (0.0-0.8); Eosinophils % 5.4 %; Lymphocytes # 1.2 10^3/uL (0.8-4.8); Lymphocytes % 18.1 %; Mean Corpuscular Hemoglobin 31.4 pg (27-33); Mean Corpuscular Volume 104.8 fl (85-98); Mean Platelet Volume 10.8 fL (7.4-10.4); Monocytes # 0.8 10^3/uL (0.2-0.9); Monocytes % 12.1 %; Neutrophils # 4.19 10^3/uL (1.8-7.7); Neutrophils % 63.3 %; Nucleated Red Blood Cells % 0 %; Platelet Count 146 10^3/cmm (157-399); Red Blood Count 3.15 10^6/uL (3.85-5.65); Red Cell Distribution Width 17.1 % (12.1-15.1); White Blood Count 6.62 10^3/uL (3.29-11.43)
[2023-10-08] MEDS: FUROsemide 10 mg/mL SDV 10mL 60 MG IVP (06:00)
[2023-10-08] MEDS: atorvastatin 40 mg Tablet PO (06:00)
[2023-10-08] MEDS: sertraline 100 mg Tablet PO (06:00)
[2023-10-08 06:06] LABS: Alanine Aminotransferase 16 U/L (0-33); Albumin Level 3.6 g/dL (3.5-5.2); Alkaline Phosphatase 298 U/L (35-105); Aspartate Amino Transferase 39 U/L (0-32); Blood Urea Nitrogen 25 mg/dL (8-23); Calcium 8.8 mg/dL (8.5-10.5); Carbon Dioxide 31 mmol/L (22-29); Chloride 99 mmol/L (98-107); Globulin 2.4 g/dL (1.3-4.6); Glucose 89 mg/dL (65-115); Osmolality Calculated 296 mOsm/kg (285-295); Sodium 141 mmol/L (136-145); Total Bilirubin 1.2 mg/dL (0.15-1.2)
[2023-10-08 06:07] LABS: Magnesium 1.4 mg/dL (1.7-2.3)
[2023-10-08 06:14] LABS: Creatinine Clr Calc Pharmacy 48.5299
[2023-10-08 07:55] VITALS: BP 127/70; PULSE 71; RESP 18; TEMP 36.6; O2SAT 94
[2023-10-08] MEDS: potassium chloride ER 20 mEq Tablet PO (08:44)
[2023-10-08] MEDS: metoprolol tartrate 25 mg Tablet PO (08:44)
[2023-10-08] MEDS: pantoprazole DR 40 mg Tablet PO (08:45)
[2023-10-08] MEDS: apixaban 5 mg Tablet PO (08:45)
[2023-10-08] MEDS: allopurinol 100 mg Tablet 400 MG PO (08:45)
--- NOTE | 2023-10-08 11:08 | PM.DCS ---
Discharge Providers Date of Admission: 10/05/23 19:54 Date of Discharge: October 08, 2023 Attending Provider at Admission: Cathleen Marquis MD Attending Provider at Discharge: Paul Manuel MD Primary Care Provider: Derek Dowd DO Diagnoses at Discharge Discharge Diagnosis (1) Congestive heart failure: Status: Acute Qualifiers: Heart failure chronicity: acute on chronic Heart failure type: diastolic Qualified Code(s): I50.33 - Acute on chronic diastolic (congestive) heart failure (2) Cardiomyopathy: Status: Acute Qualifiers: Cardiomyopathy type: ischemic Qualified Code(s): I25.5 - Ischemic cardiomyopathy (3) Status post aorto-coronary artery bypass graft: Status: Acute (4) Cardiac 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 therapy 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 (DISTRIBUTION OPERATIONS SUPERVISOR-D) in place: Status: Acute (5) Atrial fibrillation: Status: Acute (6) Pulmonary embolism: Status: Acute (7) Anticoagulant long-term use: Status: Acute Reason for Visit Reason for Visit: fluid build up Hospital Course Hospital Course Essie Alejandre is a 73 year old female with past medical history of congestive heart failure with last known EF of 40 to 45%, post CABG, post angioplasty of in-stent restenosis of SVG to diagonal in 2022, pulmonary embolism chronically on Eliquis, hypertension who presents to the ER today because of worsening difficulty in breathing getting exacerbated on minimal ambulation, conversation or laying down flat getting worse over the last 3 to 4 weeks. As per patient she saw her general car supervisor yard 1 week ago when her dose of Lasix was increased. She will ran out of her medication since Tuesday. Today is Tuesday. She has not taken her Lasix since Tuesday. And has been getting worse so she presented to the ER. She has gained around 20 pounds of weight. Complaining of abdominal pain and decreased appetite along with nausea. Denies any chest pain, palpitations, fever or sick contacts. States she has been getting more drowsy and sleepy during the day. She feels sometimes her eyes are closing up in between during the day. She had 1 episode of nausea and belching earlier in the morning after which she developed redness in the left eye. Denies any changes in her vision. Patient was admitted to the hospital further evaluation and management of congestive heart failure. She was started on aggressive IV diuresis. By the end of discharge patient was overall 7.5 L net negative. Patient underwent echocardiogram which showed EF of 30-35% with mildly dilated and hypokinetic RV, dilated IVC with elevated right atrial pressures with mild pulmonary hypertension. Given concerns of mild decrease in EF, persistent congestive heart failure she underwent Lexiscan stress test which showed infarction in all 3 coronary vessel disease area along with mild jodi-infarct ischemia. Patient was counseled about lifestyle modification congestive heart failure. She responded well to the treatment and is back to her baseline. She has been discharged in medically stable condition on oral Bumex 2 mg in morning and 1 mg in evening with advised to keep a close eye on her oral intake of liquid to less than 40 ounces a day, salt intake, daily weight checks. Patient verbalized understanding. Physical Exam Narrative: General: No acute distress, AO x3, HEENT: PERRLA, pupils bilaterally equal and reactive Chest: Normal vesicular breath sounds all over lung arriaga, minimal fine crackles bilaterally , good equal air entry CVS: S1-S2 regular, pansystolic murmur present at apex radiating to anterior axillary line, fourth intercostal space retrosternal on the left side radiating to pericardium, no tachycardia, S3 gallops, no rubs Abdomen: Soft, nontender, no organomegaly, bowel sounds present Neuro: No focal deficits, no facial deformity, AO x3, power 5/5 in all limbs Urinary Catheter Management: Estes: Cath Placed During This Visit: yes Reason for Continuing Indwelling Catheter: Acute Urinary Retention or Obstruction Urinary Catheter Date of Insertion: 10/05/23 Urinary Catheter Time of Insertion: 19:42 Discharge Data Studies Completed and Pending Completed Studies During Hospitalization Category Date Time Status CT head wo con* [id number] Urgent Cat Scan 10/07/23 22:25 Completed Sestamibi Stress Test Request Routine Exams 10/06/23 12:48 Draft XR chest 1V portable [id number] Stat Exams 10/05/23 13:27 Completed NM shireen perf SPECT r/s* [id number] Routine Nuc Med 10/07/23 08:00 Completed US echo limited [CV. echo limited [id number]] Stat Ultrasound 10/05/23 19:35 Completed Pending at discharge Category Date Time Status MAG [Magnesium] AM LABS Lab 10/09/23 04:00 Ordered Radiology Impressions Chest X-Ray 10/05/23 13:27 IMPRESSION: 1. No acute cardiopulmonary finding. No change. Head CT 10/07/23 22:25 IMPRESSION: Negative for intracranial hemorrhage or mass effect. Laboratory Results WBC 6.62 10^3/uL (3.29-11.43) 10/08/23 03:09 RBC 3.15 10^6/uL (3.85-5.65) L 10/08/23 03:09 Hgb 9.90 g/dL (11.27-16.99) L 10/08/23 03:09 Hct 33.0 % (36-47) L 10/08/23 03:09 MCV 104.8 fl (85-98) H 10/08/23 03:09 MCH 31.4 pg (27-33) 10/08/23 03:09 MCHC 30.0 g/dL (30-55) 10/08/23 03:09 RDW 17.1 % (12.1-15.1) H 10/08/23 03:09 Plt Count 146 10^3/cmm (157-399) L 10/08/23 03:09 MPV 10.8 fL (7.4-10.4) H 10/08/23 03:09 Neut % (Auto) 63.3 % 10/08/23 03:09 Lymph % (Auto) 18.1 % 10/08/23 03:09 [place] % (Auto) 12.1 % 10/08/23 03:09 Eos % (Auto) 5.4 % 10/08/23 03:09 Baso % (Auto) 0.9 % 10/08/23 03:09 Neut # (Auto) 4.19 10^3/uL (1.8-7.7) 10/08/23 03:09 Lymph # (Auto) 1.2 10^3/uL (0.8-4.8) 10/08/23 03:09 [place]at # (Auto) 0.8 10^3/uL (0.2-0.9) 10/08/23 03:09 Eos # (Auto) 0.4 10^3/uL (0.0-0.8) 10/08/23 03:09 Baso # (Auto) 0.1 10^3/uL (0.0-0.1) 10/08/23 03:09 Nucleated RBC % (auto) 0 % 10/08/23 03:09 Nucleated RBCs # 0.0 /100WBC 10/08/23 03:09 Sodium 141 mmol/L (136-145) 10/08/23 03:09 Potassium 4.0 mmol/L (3.5-5.1) 10/08/23 03:09 Chloride 99 mmol/L (98-107) 10/08/23 03:09 Carbon Dioxide 31 mmol/L (22-29) H 10/08/23 03:09 Anion Gap 15.0 (5-19) 10/08/23 03:09 BUN 25 mg/dL (8-23) H 10/08/23 03:09 Creatinine 1.1 mg/dL (0.5-0.9) H 10/08/23 03:09 GFR Calculation Not Reportable 10/08/23 03:09 Glucose 89 mg/dL (65-115) 10/08/23 03:09 Calculated Osmolality 296 mOsm/kg (285-295) H 10/08/23 03:09 Calcium 8.8 mg/dL (8.5-10.5) 10/08/23 03:09 Phosphorus 3.4 mg/dL (2.5-4.5) 10/06/23 03:34 Magnesium 1.4 mg/dL (1.7-2.3) L 10/08/23 03:09 Total Bilirubin 1.2 mg/dL (0.15-1.2) 10/08/23 03:09 AST 39 U/L (0-32) H 10/08/23 03:09 ALT 16 U/L (0-33) 10/08/23 03:09 Alkaline Phosphatase 298 U/L (35-105) H 10/08/23 03:09 Troponin T 5th Gen ng/L 37 ng/L (0-10) H 10/06/23 03:34 Troponin T Baseline 37 ng/L (0-10) H 10/05/23 16:24 Troponin T 120 Minute 36.55 ng/L (0-10) H 10/05/23 21:35 Delta Troponin T -0.45 ABS# (0-10) L 10/05/23 21:35 NT-Pro-B Natriuret Pep 5443 pg/mL (0-125) H 10/05/23 16:24 Total Protein 6.0 g/dL (6.6-8.7) L 10/08/23 03:09 Albumin 3.6 g/dL (3.5-5.2) 10/08/23 03:09 Globulin 2.4 g/dL (1.3-4.6) 10/08/23 03:09 TSH 5.13 uIU/mL (0.27-4.20) H 10/05/23 16:24 Free T4 1.20 ng/dL (0.82-1.77) 10/06/23 03:34 Free T3 2.1 PG/ML (2.0-4.4) 10/06/23 03:34 Urine Color Yellow (Yellow) 10/05/23 19:39 Urine Appearance Clear (CLEAR) 10/05/23 19:39 Urine pH 5 (5-7) 10/05/23 19:39 Ur Specific [place] 1.015 (1.005-1.030) 10/05/23 19:39 Urine Protein Neg (Negative) 10/05/23 19:39 Urine Glucose (UA) Norm (Normal) 10/05/23 19:39 Urine Ketones Negative (Negative) 10/05/23 19:39 Urine Blood Neg (Negative) 10/05/23 19:39 Urine Nitrate Negative (Negative) 10/05/23 19:39 Urine Bilirubin Neg (Negative) 10/05/23 19:39 Urine Urobilinogen Norm mg/dL (Negative) 10/05/23 19:39 Ur Leukocyte Esterase Negative (Negative) 10/05/23 19:39 Ur Eosinophil Smear Not Reportable 10/06/23 16:00 Urine Eosinophils No eosinophils seen 10/06/23 16:00 Ur Random Sodium 79 mmol/L 10/06/23 16:00 Ur Random Potassium 21 mmol/L 10/06/23 16:00 Ur Random Chloride 91 mmol/L 10/06/23 16:00 Urine Creatinine 29 mg/dL (28-217) 10/06/23 16:00 Vitals Last Vital Signs Temp 97.8 F 10/08/23 07:55 Pulse 71 10/08/23 07:55 Resp 18 10/08/23 07:55 BP 127/70 10/08/23 07:55 Pulse Ox 94 10/08/23 07:55 O2 Del Method Room Air 10/08/23 07:55 Discharge Plan Discharge Patient Disposition: Home Health Service Condition: Stable Prescriptions: New bumetanide 1 mg tablet See Rx Instructions .ROUTE .COMPLEX Qty: 90 0RF Rx Instructions: 2 mg every morning, 1 mg at 4 PM magnesium 200 mg tablet 200 mg PO DAILY Qty: 30 0RF Continued multivitamin Tablet 1 tab PO QAM allopurinol 100 mg tablet 400 mg PO DAILY Qty: 120 11RF Nitrostat 0.4 mg tablet, sublingual 0.4 mg SUBLINGUAL Q5M PRN (Reason: Chest Pain) Qty: 30 2RF Rx Instructions: do not exceed 3 doses per episode atorvastatin 40 mg tablet 40 mg PO QAM Qty: 90 3RF sertraline 100 mg tablet 100 mg PO QAM Qty: 90 3RF alprazolam 0.5 mg tablet 0.5 mg PO DAILY PRN (Reason: Anxiety) Qty: 20 0RF albuterol sulfate 90 mcg/actuation HFA aerosol inhaler 2 puff INHALATION QID PRN (Reason: Shortness Of Breath) Qty: 8.5 2RF potassium chloride 20 mEq tablet,ER particles/crystals 20 meq PO BID Qty: 60 2RF Rx Instructions: take one tablet BY MOUTH TWICE DAILY while taking bumex. Slow-Mag 71.5 mg tablet,delayed release (DR/EC) 71.5 mg PO BID Qty: 60 5RF galantamine 4 mg tablet 4 mg PO BID Qty: 60 3RF Rx Instructions: administer with AM and PM meals metoprolol tartrate 25 mg tablet 25 mg PO BID Qty: 120 3RF acetaminophen [Tylenol Arthritis Pain] 650 mg tablet extended release 1,300 mg PO BID pantoprazole 40 mg tablet,delayed release (DR/EC) 40 mg PO BID ascorbic acid (vitamin C) [Vitamin C] 500 mg Tablet See Rx Instructions .ROUTE .COMPLEX Rx Instructions: 500 mg orally ON TUESDAY, TUESDAY AND TUESDAY ferrous sulfate [Iron (ferrous sulfate)] 325 mg (65 mg iron) Tablet See Rx Instructions .ROUTE .COMPLEX Rx Instructions: 325 mg orally ON TUESDAY-TUESDAY AND TUESDAY bisacodyl [Dulcolax (bisacodyl)] 5 mg Tablet,Delayed Release (Dr/Ec) 5 mg PO DAILY PRN (Reason: Constipation) omega-3 fatty acids 1,000 mg Capsule 1,000 mg PO DAILY clopidogrel 75 mg tablet 75 mg PO BEDTIME Hold Instructions: Resume on 09/29/23. Rx Instructions: TAKE ONE TABLET BY MOUTH at bedtime Eliquis 5 mg tablet 5 mg PO BID Hold Instructions: Resume on 09/29/23. Rx Instructions: TAKE ONE TABLET BY MOUTH TWICE DAILY Changed lisinopril 10 mg tablet 5 mg PO DAILY Qty: 90 3RF Discontinued isosorbide mononitrate 60 mg tablet extended release 24 hr 60 mg PO BID furosemide 40 mg tablet 80 mg PO QAM Discharge Orders: Discharge Order (Routine); Ordered 10/08/23 Ordered By: Paul Manuel Referrals: [facility] [Outside] Derek Dowd DO [Primary Care Provider] - 7-10 days Discharge Diet: Cardiac Discharge Activity: Resume usual activity and Increase activity as tolerated Patient Instructions: Heart Failure (DC), CHF Stoplight, Opioid Safety Activity Restrictions/Additional Instructions: Restrict fluid intake to less than 1500 cc, salt intake to less than 2 g daily. Advised to check his weight daily at home. Is advised that weight today would be the dry weight and if body weight increases by around 5 pounds, patient is to take an extra dose of Bumex daily till body weight comes down to weight today. If not able to come down to dry body weight in 1 week, then is to call cardiology office for further recommendations. Patient was counseled in detail to take medications regularly as prescribed. Discharge Attestations Time Spent in Discharge Care*: greater than 30 min Specific Discharge Activities: educating patient, educating and/or supporting family/caregiver, discussing with pcp/other providers, discussing with bilingual case manager/social workers/dc planners, documenting/other paperwork and evaluating patient/reviewing data Status at Discharge: Cognitive status at discharge: cognitively intact, Behavioral status at discharge: cooperative, Functional status at discharge: independent ambulation, Overall status at discharge: patient is back to baseline Quality Metrics Clinical Quality Measures [ No reported AMI, CVA or VTE this stay] Coding Level of Care Code 54903 Total time (in minutes) for Discharge: 60 Diagnoses Acute on chronic diastolic congestive heart failure I50.33 Heart failure chronicity: acute on chronic Heart failure type: diastolic Ischemic cardiomyopathy I25.5 Cardiomyopathy type: ischemic Status post aorto-coronary artery bypass graft Z95.1 Cardiac 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 therapy 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 (DISTRIBUTION OPERATIONS SUPERVISOR-D) in place Z95.810 Atrial fibrillation I48.91 Pulmonary embolism I26.99 Anticoagulant long-term use Z79.01
[2023-10-08 12:00] VITALS: BP 113/65; PULSE 70; RESP 21; TEMP 36.7; O2SAT 93
[2023-10-08 13:19] VITALS: BP 113/65; PULSE 70; RESP 21; TEMP 36.7; O2SAT 93
--- NOTE | 2023-10-08 14:19 | PC.NURSE ---
pt d/c to home with home health, educ on all new medications, diet and fluid restriction. pt will call on tuesday to schedule hospital follow up appt with primary care physician.
== END 2023-10-08 14:00 | disposition home health service (06) | DRG 291 ==
LOC: ER 18:39 → CSU 19:54
PROVIDERS: Emergency Medicine; Admitting Provider Student in an Organized Health Care Education/Training Program; Emergency Provider Family Medicine; PCP Family Medicine; Visit Provider Student in an Organized Health Care Education/Training Program
DX: I13.0 Hypertensive heart and chronic kidney disease with heart failure and stage 1 through stage 4 chronic kidney disease, or unspecified chronic kidney disease (principal); I50.33 Acute on chronic diastolic (congestive) heart failure; I48.20 Chronic atrial fibrillation, unspecified; N17.9 Acute kidney failure, unspecified; K76.6 Portal hypertension; I25.5 Ischemic cardiomyopathy; Z86.711 Personal history of pulmonary embolism; Z79.01 Long term (current) use of anticoagulants; Z79.02 Long term (current) use of antithrombotics/antiplatelets; Z87.891 Personal history of nicotine dependence; E78.5 Hyperlipidemia, unspecified; K21.9 Gastro-esophageal reflux disease without esophagitis; K76.1 Chronic passive congestion of liver; R16.0 Hepatomegaly, not elsewhere classified; K31.89 Other diseases of stomach and duodenum
CPT/HCPCS: 36591; 36592; 51702; 70450; 71045; 78452; 80048; 80053; 81003; 82436; 82570; 83735; 83880; 84100; 84133; 84300; 84439; 84443; 84481; 84484; 85025; 85999; 93005; 93017; 93308; 94664; 96365; 96375; 96376; 99285; A9500; J0131; J1940; J2270; J2405; J2785; J3475

== ENCOUNTER 2023-10-13 22:17 | Inpatient (IN) | payer MEDICARE, BC, SELFPAY ==
[2023-10-13 22:17] VITALS: BP 102/56; PULSE 71; RESP 24; TEMP 36.8; O2SAT 96; BMI 27.9
[2023-10-13 22:28] VITALS: PULSE 70; O2SAT 96
--- NOTE | 2023-10-13 22:39 | W.ED.GENADLT ---
HPI - General Adult General: Chief complaint: General Medical Stated complaint: UTI- Body Pain Time Seen by Provider: 10/13/23 22:32 History of Present Illness: 73-year-old female with a history of coronary artery disease, recurrent urinary tract infections, chronic kidney disease, gout, left bundle branch block, hypertension, congestive heart failure, renal artery stenosis, peripheral artery disease, atrial fibrillation, and chronic anticoagulation on Eliquis and Plavix who presents the emergency room with weakness, malaise, back pain and urinary symptoms. She was diagnosed with a urinary tract infection Review of Systems Narrative: Constitutional symptoms: Negative except as documented in HPI. Skin symptoms: Negative except as documented in HPI. Eye symptoms: Negative except as documented in HPI. ENMT symptoms: Negative except as documented in HPI. Respiratory symptoms: Negative except as documented in HPI. Cardiovascular symptoms: Negative except as documented in HPI. Gastrointestinal symptoms: Negative except as documented in HPI. Genitourinary symptoms: Negative except as documented in HPI. Musculoskeletal symptoms: Negative except as documented in HPI. Neurologic symptoms: Negative except as documented in HPI. Psychiatric symptoms: Negative except as documented in HPI. Endocrine symptoms: Negative except as documented in HPI. PFS ED PFSH: Medical History (Updated 10/14/23 @ 02:17 by Radha Berry MD) Hospital discharge follow-up Leg swelling CVA (cerebral vascular accident) History of colon polyps Shortness of breath Mastitis Breast enlargement Cholecystitis Bacterial vaginosis Needs flu shot UTI (urinary tract infection) Degenerative disc disease, cervical Neuropathy Staphylococcus epidermidis bacteremia Pulmonary embolism Mixed incontinence urge and stress Facet arthritis, degenerative, cervical spine Cervical osteoarthritis Chronic neck pain Chest pain Follow-up exam Edema of all four extremities Abnormal laboratory test result Neutropenia Diuretic-induced hypokalemia Parainfluenza infection Acute exacerbation of chronic obstructive pulmonary disease Chronic headaches Acute alteration in mental status Essential hypertension Thrush, oral Dysphagia Hypokalemia Hypomagnesemia Mixed dyslipidemia Fatigue Allergic rhinitis Esophageal spasm GERD with esophagitis Lumbar disc disease with radiculopathy Facet arthropathy, lumbar GERD without esophagitis Establishing care with new doctor, encounter for Nausea & vomiting High risk medication use High risk medication use Thrush Cellulitis Anemia Port-A-Cath in place Poor venous access Hearing loss associated with syndrome of both ears NSTEMI (non-ST elevated myocardial infarction) Elevated troponin I level Acute cystitis without hematuria Intracranial atherosclerosis Balance disorder Cognitive impairment Cardiac 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 therapy 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 ([employer]ELOPER-D) in place Recurrent UTI CKD (chronic kidney disease) stage 3, GFR 30-59 ml/min 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 GERD (gastroesophageal reflux disease) Hyperlipidemia Iron deficiency anemia Gout Sleep apnea Vertebral artery stenosis Left bundle branch block Right internal carotid artery aneurysm Vertebrobasilar insufficiency Atrial fibrillation PAD (peripheral artery disease) Renal artery stenosis Cardiomyopathy CHF (congestive heart failure) Anticoagulant long-term use BASIA (obstructive sleep apnea) HTN (hypertension) Chronic renal insufficiency, stage II (mild) Surgical History (Updated 10/14/23 @ 01:30 by Dex Schmidt MD) Status post cholecystectomy Hx of arthroscopy of right knee S/P appendectomy S/P section S/P hysterectomy Status post tubal ligation Status post aorto-coronary artery bypass graft S/P CABG (coronary artery bypass graft) S/P angioplasty with stent S/P ICD (internal cardiac 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) procedure H/O cardiac radiofrequency ablation Family History Father , AT AGE 65 Hyperlipidemia CAD (coronary artery disease) Hypertension Rheumatoid arthritis Mother , AT AGE 65 Hyperlipidemia CAD (coronary artery disease) Hypertension Diabetes Sister Hyperlipidemia CAD (coronary artery disease) Hypertension Diabetes Other Cancer Social History Smoking and tobacco/nicotine status: former use of tobacco/nicotine Second hand smoke exposure: No Alcohol intake: never Substance/Drug Use: never Marital status: Current occupational status: retired Female Reproductive History: Spontaneous abortions: No Physical Exam Narrative: EXAM NARRATIVE: General: Alert, patient appears somewhat ill. Skin: Warm, dry. Sallow/jaundice Head: Normocephalic, atraumatic. Neck: Supple, trachea midline. Eye: Extraocular movements are intact. Ears, nose, mouth and throat: mucosa moist. Cardiovascular: Regular, Normal peripheral perfusion. Respiratory: Lungs are clear to auscultation, respirations are non-labored, breath sounds are equal, Symmetrical chest wall expansion. Gastrointestinal: Soft, Nontender, Non distended, Normal bowel sounds. Musculoskeletal: Normal ROM, no deformity. Neurological: Alert and oriented, No focal neurological deficit observed. Psychiatric: Cooperative, appropriate mood & affect. Course Vital Signs: Vital signs: Vital Signs Temperature 98.2 F 10/14/23 02:07 Pulse Rate 69 10/14/23 02:07 Respiratory Rate 22 H 10/14/23 02:07 Blood Pressure 112/60 10/14/23 02:07 Pulse Oximetry 92 10/14/23 02:07 Oxygen Delivery Me thod Room Air 10/14/23 02:07 MDM - General Adult Medical Decision Making Medical decision making: Differential diagnosis for patient presenting with generalized weakness including but not limited to and based on the above HPI, review of systems and physical exam: Sepsis. Dehydration. Renal failure. Electrolyte abnormalities. Anemia. Congestive heart failure. Hypotension. Coronary syndrome. Hepatitis. Cirrhosis. Infections such as pneumonia, urinary tract infection, [place] illness, Cellulitis, Viral infections including influenza and Covid-19. Workup: labwork and lab/exam driven imaging ordered to evaluate, rule in and rule out above pathologies. Lab Review: Laboratory results were reviewed and interpreted by myself the emergency room physician. Patient has leukocytosis with a white count of 18,000. BUN/creatinine are up quite a bit from her baseline at 40 and 2.0. Her urine does appear somewhat infected. Lactate is normal. I reviewed the patient's medical record. Reexamination: Patient has remained stable. Her blood pressure still kind of low after the first liter of fluids. I am given another liter and a half for sepsis. No focal motor deficits. No altered mental status. No increased work of breathing at this time. Consultation: I spoke with Dr. Schmidt who is on-call for the hospitalist who agrees with admission to observation. Requests CT of the abdomen without contrast to evaluate for obstructive uropathy or other intra-abdominal pathologies. CT of the abdomen pelvis without contrast: There is no acute pathology. This was reviewed and interpreted by myself the emergency room physician. I also reviewed the radiology report. Prolonged emergency room stay: Upon admission request, hospitalist has requested a CT of the abdomen pelvis to rule out obstructive uropathy. This prolonged patient stay in the ER. Also some delay initially because of time it took to get a urine Assessment and plan: Urinary tract infection Sepsis Acute on chronic renal insufficiency -2.5 L normal saline bolus. Fluid volumes based on ideal body weight. -IV Rocephin was given -Sepsis quality measures. -Lactic acid with a reflex was ordered. -Blood cultures were ordered. -I discussed the patient with the hospitalist on-call who is admitting the patient. - Discussed findings and plan with patient. Answered any questions. - All laboratory values were reviewed and interpreted personally by myself, the ER physician - All imaging was reviewed and interpreted personally by myself, the ER physician. - Evaluation and treatment of this problem were appropriate in the emergency setting Critical care: -I spent a total of >35 minutes of critical care time managing the patient, independent of any other practitioner. -The time involved in the performance of separately reportable procedures was not counted towards critical care time. Lab Data 10/13/23 22:05 10/13/23 22:05 Radiology Impressions Abdomen/Pelvis CT 10/14/23 00:36 IMPRESSION: 1. No definitive evidence of acute intra-abdominal or pelvic process. 2. Small ascites, trace effusions, and anasarca. Correlate with fluid status/CHF. Laboratory Results WBC 17.79 10^3/uL (3.29-11.43) H 10/13/23 22:05 RBC 3.55 10^6/uL (3.85-5.65) L 10/13/23 22:05 Hgb 11.00 g/dL (11.27-16.99) L 10/13/23 22:05 Hct 35.0 % (36-47) L 10/13/23 22:05 MCV 98.6 fl (85-98) H 10/13/23 22:05 MCH 31.0 pg (27-33) 10/13/23 22:05 MCHC 31.4 g/dL (30-55) 10/13/23 22:05 RDW 16.8 % (12.1-15.1) H 10/13/23 22:05 Plt Count 118 10^3/cmm (157-399) L 10/13/23 22:05 MPV 10.7 fL (7.4-10.4) H 10/13/23 22:05 Neut % (Auto) 95.5 % 10/13/23 22:05 Lymph % (Auto) 1.2 % 10/13/23 22:05 [place] % (Auto) 1.1 % 10/13/23 22:05 Eos % (Auto) 1.6 % 10/13/23 22:05 Baso % (Auto) 0.2 % 10/13/23 22:05 Neut # (Auto) 16.99 10^3/uL (1.8-7.7) H 10/13/23 22:05 Lymph # (Auto) 0.2 10^3/uL (0.8-4.8) L 10/13/23 22:05 [place] # (Auto) 0.2 10^3/uL (0.2-0.9) 10/13/23 22:05 Eos # (Auto) 0.3 10^3/uL (0.0-0.8) 10/13/23 22:05 Baso # (Auto) 0.0 10^3/uL (0.0-0.1) 10/13/23 22:05 Nucleated RBC % (auto) 0 % 10/13/23 22:05 Nucleated RBCs # 0.0 /100WBC 10/13/23 22:05 Sodium 132 mmol/L (136-145) L 10/13/23 22:05 Potassium 3.4 mmol/L (3.5-5.1) L 10/13/23 22:05 Chloride 94 mmol/L (98-107) L 10/13/23 22:05 Carbon Dioxide 27 mmol/L (22-29) 10/13/23 22:05 Anion Gap 14.4 (5-19) 10/13/23 22:05 BUN 40 mg/dL (8-23) H 10/13/23 22:05 Creatinine 2.0 mg/dL (0.5-0.9) H 10/13/23 22:05 GFR Calculation Not Reportable 10/13/23 22:05 Glucose 113 mg/dL (65-115) 10/13/23 22:05 Calculated Osmolality 285 mOsm/kg (285-295) 10/13/23 22:05 Lactic Acid 1.7 mmol/L (0.5-2.2) 10/13/23 23:14 Calcium 8.4 mg/dL (8.5-10.5) L 10/13/23 22:05 Total Bilirubin 4.1 mg/dL (0.15-1.2) H 10/13/23 22:05 AST 116 U/L (0-32) H 10/13/23 22:05 ALT 30 U/L (0-33) 10/13/23 22:05 Alkaline Phosphatase 222 U/L (35-105) H 10/13/23 22:05 C-Reactive Protein 126.3 mg/L (0.0-4.9) H 10/13/23 22:05 NT-Pro-B Natriuret Pep 94991 pg/mL (0-125) H 10/13/23 22:05 Total Protein 5.5 g/dL (6.6-8.7) L 10/13/23 22:05 Albumin 3.0 g/dL (3.5-5.2) L 10/13/23 22:05 Globulin 2.5 g/dL (1.3-4.6) 10/13/23 22:05 Procalcitonin 9.88 ng/mL (0-0.5) H 10/13/23 22:05 Urine Color Other (Yellow) A 10/13/23 23:37 Urine Appearance Cloudy (CLEAR) A 10/13/23 23:37 Urine pH 5 (5-7) 10/13/23 23:37 Ur Specific [place] 1.020 (1.005-1.030) 10/13/23 23:37 Urine Protein Trace (Negative) 10/13/23 23:37 Urine Glucose (UA) Norm (Normal) 10/13/23 23:37 Urine Ketones 1+ (Negative) H 10/13/23 23:37 Urine Blood 2+ (Negative) H 10/13/23 23:37 Urine Nitrate Negative (Negative) 10/13/23 23:37 Urine Bilirubin 2+ (Negative) H 10/13/23 23:37 Urine Urobilinogen 4 mg/dL (Negative) H 10/13/23 23:37 Ur Leukocyte Esterase 2+ (Negative) H 10/13/23 23:37 Urine RBC 0-4 /hpf (0-2) H 10/13/23 23:37 Urine WBC 25-40 /hpf (0-5) H 10/13/23 23:37 Ur Squamous Epith Cells 15-25 /hpf (0-5) H 10/13/23 23:37 Amorphous Sediment Not Reportable 10/13/23 23:37 Urine Bacteria 1+ /hpf (NONE) H 10/13/23 23:37 All radiology interpretation(s) finalized by discharge Discharge Plan Discharge Patient Disposition: Placed in Observation Admit Provider: Dex Schmidt Clinical Impression: Acute on chronic renal insufficiency Urinary tract infection Qualifiers: Urinary tract infection type: acute cystitis Hematuria presence: without hematuria Qualified Code(s): N30.00 - Acute cystitis without hematuria Sepsis Qualifiers: Sepsis type: sepsis due to unspecified organism Sepsis acute organ dysfunction status: with acute organ dysfunction Severe sepsis acute organ dysfunction type: acute renal failure Acute renal failure type: with other specified pathological lesion Severe sepsis shock status: without septic shock Qualified Code(s): A41.9 - Sepsis, unspecified organism Coding Level of Care Code ED [employer]veler for Dario Guzman
[2023-10-13] MEDS: sodium chloride 0.9% 1,000 ML 999 ML IV (22:53)
[2023-10-13] MEDS: cefTRIAXone 1,000 MG in sodium chloride 0.9% (plus) 50 ML 100 MG IV (22:53)
[2023-10-13 22:56] LABS: Basophils % 0.2 %; Eosinophils # 0.3 10^3/uL (0.0-0.8); Eosinophils % 1.6 %; Lymphocytes # 0.2 10^3/uL (0.8-4.8); Lymphocytes % 1.2 %; Mean Corpuscular HGB Conc 31.4 g/dL (30-55); Mean Corpuscular Volume 98.6 fl (85-98); Mean Platelet Volume 10.7 fL (7.4-10.4); Monocytes # 0.2 10^3/uL (0.2-0.9); Monocytes % 1.1 %; Neutrophils # 16.99 10^3/uL (1.8-7.7); Neutrophils % 95.5 %; Nucleated Red Blood Cells % 0 %; Platelet Count 118 10^3/cmm (157-399); Red Blood Count 3.55 10^6/uL (3.85-5.65); Red Cell Distribution Width 16.8 % (12.1-15.1); White Blood Count 17.79 10^3/uL (3.29-11.43)
[2023-10-13 23:14] LABS: Alanine Aminotransferase 30 U/L (0-33); Alkaline Phosphatase 222 U/L (35-105); Anion Gap 14.4 (5-19); Aspartate Amino Transferase 116 U/L (0-32); Blood Urea Nitrogen 40 mg/dL (8-23); C Reactive Protein 126.3 mg/L (0.0-4.9); Calcium 8.4 mg/dL (8.5-10.5); Carbon Dioxide 27 mmol/L (22-29); Chloride 94 mmol/L (98-107); Creatinine Clr Calc Pharmacy 26.3443; Globulin 2.5 g/dL (1.3-4.6); Glucose 113 mg/dL (65-115); Osmolality Calculated 285 mOsm/kg (285-295); Potassium 3.4 mmol/L (3.5-5.1); Sodium 132 mmol/L (136-145); Total Bilirubin 4.1 mg/dL (0.15-1.2); Total Protein 5.5 g/dL (6.6-8.7)
[2023-10-13 23:44] LABS: Lactic Sepsis W/Reflex 1.7 mmol/L (0.5-2.2)
[2023-10-14] VITALS (56 sets, daily range): BP systolic 78–130; BP diastolic 34–74; PULSE 69–78; RESP 17–42; TEMP 36.7–36.9; O2SAT 79–100
[2023-10-14 00:12] LABS: Urine Appearance Cloudy (CLEAR); Urine Color Other (Yellow)
[2023-10-14 00:13] LABS: Bilirubin Urine 2+ (Negative); Blood Urine 2+ (Negative); Glucose Urine UA Norm (Normal); Ketones Urine 1+ (Negative); Leukocyte Esterase Urine 2+ (Negative); Nitrate Urine Negative (Negative); Protein Urine Trace (Negative); Urobilinogen Urine 4 mg/dL (Negative); pH Urine 5 (5-7)
[2023-10-14 00:14] LABS: RBC Urine 0-4 /hpf (0-2); Squamous Epithelial Cell Urine 15-25 /hpf (0-5); WBC Urine 25-40 /hpf (0-5)
[2023-10-14 00:15] LABS: Bacteria Urine 1+ /hpf
[2023-10-14 00:17] LABS: Add Urine Culture? No
--- NOTE | 2023-10-14 00:36 | CTR_ITS ---
PROCEDURE INFORMATION: Exam: CT Abdomen And Pelvis Without Contrast Exam date and time: 10/14/2023 12:49 AM Age: 73 years old Clinical indication: Other: See exam info; Prior surgery; Surgery date: 6+ months; Surgery type: Stent, appy, cabg, hyst, gb; Additional info: Renal failure, R/O obstructive uropathy per hospitalist TECHNIQUE: Imaging protocol: Computed tomography of the abdomen and pelvis without contrast. Radiation optimization: All CT scans at this facility use at least one of these dose optimization techniques: automated exposure control; mA and/or kV adjustment per patient size (includes targeted exams where dose is matched to clinical indication); or iterative reconstruction. COMPARISON: CT abdomen pelvis wo con [id number] 08/30/2023 12:26 PM RADIATION DOSE METRICS: Total DLP (mGy-cm): 728.1 FINDINGS: Pleural spaces: Trace bilateral pleural effusions. Heart: Moderate cardiomegaly. No pericardial effusion or pericardial thickening. Liver: The liver is normal. No hepatic masses are identified. Gallbladder and bile ducts: The gallbladder is surgically absent. There is no ductal dilatation. Pancreas: The pancreas is atrophic without obvious abnormality. Spleen: Calcified splenic granulomata are noted. The spleen is otherwise normal. Adrenal glands: The adrenal glands are normal. Kidneys and ureters: No renal calcification or hydronephrosis. Stable severe atrophy of the right kidney. Stomach and bowel: Mild colonic diverticulosis without diverticulitis. There is no large or small bowel obstruction. There is no evidence of bowel wall thickening. Appendix: A normal appendix is not identified. There is no secondary evidence of acute appendicitis. Intraperitoneal space: Mild ascites. No obvious inflammatory change though ascites limits evaluation. No pneumoperitoneum. Vasculature: Atherosclerotic calcifications of the aorta are present. No aneurysm is identified. Dense iliac arterial calcifications are present. Lymph nodes: There are no enlarged retroperitoneal or mesenteric lymph nodes. Urinary bladder: The bladder is decompressed and collapsed. No abnormality identified. Reproductive: The uterus is absent. Bones/joints: No acute osseous abnormalities are seen. Soft tissues: There is a small left inguinal hernia containing only fat. Small periumbilical hernia containing only fat. Moderate diffuse subcutaneous edema consistent with anasarca. CT/CT abdomen pelvis wo con [id number] IMPRESSION: 1. No definitive evidence of acute intra-abdominal or pelvic process. 2. Small ascites, trace effusions, and anasarca. Correlate with fluid status/CHF.
--- NOTE | 2023-10-14 00:37 | PM.HP ---
Providers/Chief Complaint Primary Care Provider: Derek Dowd DO Chief Complaint: UTI- Body Pain History of Present Illness Essie Alejandre is a 73 year old female with a past medical history significant for congestive heart failure, coronary artery disease with history of CABG and PCI, pulmonary embolism, hypertension, sleep apnea, atrial fibrillation, chronic kidney disease stage II, peripheral arterial disease, and multiple other comorbidities who presents emergency department with diffuse body pains. Patient reports she was in her usual state of health until this past Tuesday. She reports she did a sleep study which did not go well. She endorses associated symptoms of diffuse abdominal pains, diarrhea, fatigue, subjective fevers and chills. Exertion worsens symptoms. Rest improves. She describes her diarrhea as watery loose stools, reporting 1 episode per day for the last several days. Denies bright red blood per rectum or melena. Denies constipation. However per chart review, she was evaluated prior and the day at urgent care clinic where she complained of constipation and suspected UTI. She was prescribed antibiotics but never started them. Of note, patient has been seen multiple times this year for abdominal pains. She underwent an EGD and colonoscopy on August 03, 2023. At that time, she was noted to have a small hiatal hernia. Stomach and duodenum were examined and no abnormalities were seen. Colonoscopy revealed medium size hemorrhoids. She underwent laparoscopic cholecystectomy for biliary colic and biliary hyperkinesia on August 25, 2023. Pathology showed chronic cholecystitis with cholesterolosis. She did then underwent Port-A-Cath placement for history of poor venous access on September 27, 2023. She most recently followed up in general surgery clinic on October 09 at that time she continued to complain of abdominal pains; per documentation they were suprapubic without radiation; crampy in nature. She was offered gastroenterology referral for persistent abdominal pains but declined at that time. Patient does have a cardiac history. She follows in cardiology clinic. She was admitted on 10/05/2023 to 10/08/2023 for acute on chronic with reduced ejection fraction exacerbation. During that admission, she was treated with IV diuresis. Echocardiogram revealed LVEF of 30 to 35% with mildly dilated and hypokinetic right ventricle, dilated IVC with elevated right atrial pressures consistent with mild pulmonary hypertension. She underwent a Marianela scan which showed infarction in all 3 coronary vessel areas with mild jodi-infarct ischemia. She was discharged on Bulax 2 mg in a.m. and 1 mg in p.m. Review of Systems Narrative: A complete review of systems was obtained and is negative except as stated in HPI. Medications/Allergies Home Medications Medication Instructions Recorded Confirmed Last Taken Type multivitamin 1 tab PO QAM 06/08/21 10/13/23 10/05/23 History omega-3 fatty acids 1,000 mg 1,000 mg PO DAILY 03/24/22 10/13/23 10/05/23 History capsule acetaminophen 650 mg 1,300 mg PO BID 09/17/22 10/13/23 10/05/23 History tablet,extended release (Tylenol Arthritis Pain) nitroglycerin 0.4 mg sublingual 0.4 mg sublingual Q5M PRN Chest 12/06/22 10/13/23 Unknown Rx tablet (Nitrostat) Pain #30 tabs atorvastatin 40 mg tablet 40 mg PO QAM #90 tabs 12/13/22 10/13/23 10/05/23 Rx sertraline 100 mg tablet 100 mg PO QAM #90 tabs 12/13/22 10/13/23 10/05/23 Rx pantoprazole 40 mg tablet,delayed 40 mg PO BID 04/23/23 10/13/23 10/05/23 History release allopurinol 100 mg tablet 400 mg (4 x 100 mg) PO DAILY #120 04/27/23 10/13/23 09/30/23 Rx tabs ascorbic acid (vitamin C) 500 mg See Rx Instructions .Route .COMPLEX 06/06/23 10/13/23 10/05/23 History tablet (Vitamin C) bisacodyl 5 mg tablet,delayed 5 mg PO DAILY PRN Constipation 06/06/23 10/13/23 08/24/23 History release (Dulcolax (bisacodyl)) ferrous sulfate 325 mg (65 mg See Rx Instructions .Route .COMPLEX 06/06/23 10/13/23 10/05/23 History iron) tablet (Iron (ferrous sulfate)) albuterol sulfate 90 mcg/actuation 2 puff inhalation QID PRN 06/29/23 10/13/23 08/30/23 Rx aerosol inhaler Shortness Of Breath #8.5 grams alprazolam 0.5 mg tablet 0.5 mg PO DAILY PRN Anxiety #20 06/29/23 10/13/23 08/29/23 Rx tabs galantamine 4 mg tablet 4 mg PO BID #60 tabs 07/15/23 10/13/23 10/05/23 Rx metoprolol tartrate 25 mg tablet 25 mg PO BID #120 tabs 07/19/23 10/13/23 10/05/23 Rx apixaban 5 mg tablet (Eliquis) 5 mg PO BID 08/01/23 10/13/23 10/05/23 History clopidogrel 75 mg tablet 75 mg PO BEDTIME 08/01/23 10/13/23 1 Day Ago History ~10/04/23 magnesium chloride 71.5 mg 71.5 mg PO BID #60 tabs 09/06/23 10/13/23 10/05/23 Rx (magnesium chloride) tablet,delayed release (Slow-Mag) potassium chloride 20 mEq 20 meq PO BID #60 tabs 09/06/23 10/13/23 10/05/23 Rx tablet,extended release(part/cryst) bumetanide 1 mg tablet See Rx Instructions .Route 10/08/23 10/13/23 Unknown Rx .COMPLEX #90 tabs lisinopril 10 mg tablet 5 mg (1/2 x 10 mg) PO DAILY #90 10/08/23 10/13/23 09/30/23 Rx tabs magnesium 200 mg tablet 200 mg PO DAILY #30 tabs 10/08/23 10/13/23 Unknown Rx amoxicillin 875 mg-potassium 1 tab PO BID 7 days #14 tabs 10/13/23 10/13/23 Unknown Rx clavulanate 125 mg tablet Allergies Allergy/AdvReac Type Severity Reaction Status Date / Time tizanidine Allergy Unknown ADR-Halluci Verified 10/13/23 10:10 nating levofloxacin [From Levaquin] Allergy ALGY-Redness Verified 10/13/23 10:10 of Skin Sulfa (Sulfonamide Allergy hives Verified 10/13/23 10:10 Antibiotics) adhesive tape AdvReac Mild Unknown Verified 10/13/23 10:10 PFSH Acute PFSH: Medical History (Updated 10/14/23 @ 01:31 by Dex Schmidt MD) Hospital discharge follow-up Leg swelling CVA (cerebral vascular accident) History of colon polyps Shortness of breath Mastitis Breast enlargement Cholecystitis Bacterial vaginosis Needs flu shot UTI (urinary tract infection) Degenerative disc disease, cervical Neuropathy Staphylococcus epidermidis bacteremia Pulmonary embolism Mixed incontinence urge and stress Facet arthritis, degenerative, cervical spine Cervical osteoarthritis Chronic neck pain Chest pain Follow-up exam Edema of all four extremities Abnormal laboratory test result Neutropenia Diuretic-induced hypokalemia Parainfluenza infection Acute exacerbation of chronic obstructive pulmonary disease Chronic headaches Acute alteration in mental status Essential hypertension Thrush, oral Dysphagia Hypokalemia Hypomagnesemia Mixed dyslipidemia Fatigue Allergic rhinitis Esophageal spasm GERD with esophagitis Lumbar disc disease with radiculopathy Facet arthropathy, lumbar GERD without esophagitis Establishing care with new doctor, encounter for Nausea & vomiting High risk medication use High risk medication use Thrush Cellulitis Anemia Port-A-Cath in place Poor venous access Hearing loss associated with syndrome of both ears NSTEMI (non-ST elevated myocardial infarction) Elevated troponin I level Acute cystitis without hematuria Intracranial atherosclerosis Balance disorder Cognitive impairment Cardiac 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 therapy 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 (RECORDING STUDIO INTERN-D) in place Recurrent UTI CKD (chronic kidney disease) stage 3, GFR 30-59 ml/min 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 GERD (gastroesophageal reflux disease) Hyperlipidemia Iron deficiency anemia Gout Sleep apnea Vertebral artery stenosis Left bundle branch block Right internal carotid artery aneurysm Vertebrobasilar insufficiency Atrial fibrillation PAD (peripheral artery disease) Renal artery stenosis Cardiomyopathy CHF (congestive heart failure) Anticoagulant long-term use BASIA (obstructive sleep apnea) HTN (hypertension) Chronic renal insufficiency, stage II (mild) Surgical History (Updated 10/14/23 @ 01:30 by Dex Schmidt MD) Status post cholecystectomy Hx of arthroscopy of right knee S/P appendectomy S/P section S/P hysterectomy Status post tubal ligation Status post aorto-coronary artery bypass graft S/P CABG (coronary artery bypass graft) S/P angioplasty with stent S/P ICD (internal cardiac 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) procedure H/O cardiac radiofrequency ablation Family History Father , AT AGE 65 Hyperlipidemia CAD (coronary artery disease) Hypertension Rheumatoid arthritis Mother , AT AGE 65 Hyperlipidemia CAD (coronary artery disease) Hypertension Diabetes Sister Hyperlipidemia CAD (coronary artery disease) Hypertension Diabetes Other Cancer Social History Smoking and tobacco/nicotine status: former use of tobacco/nicotine Second hand smoke exposure: No Alcohol intake: never Substance/Drug Use: never Marital status: Current occupational status: retired Female Reproductive History: Spontaneous abortions: No Vitals/I&O/Wt Last Vital Signs Temp 98.2 F 10/13/23 22:17 Pulse 70 10/13/23 22:28 Resp 24 H 10/13/23 22:17 BP 102/56 10/13/23 22:17 Pulse Ox 96 10/13/23 22:28 O2 Del Method Room Air 10/13/23 22:28 Weight last 48 hrs Weight 76.204 kg Physical Exam Narrative: General: Patient is awake. Ill-appearing. Head: Normocephalic. Atraumatic. EOM intact. Neck: No JVD. Cardiovascular: RRR. No gallops. No murmurs. Port is placed in chest and accessed. Lungs: Breath sounds diminished bilateral bases, no use of accessory muscles, no crackles or wheezes. On room air. Skin: No jaundice. No rashes. Abdomen: Normal bowel sounds, abdomen soft. Tenderness palpation all 4 quadrants. No guarding. Extremities: No cyanosis or clubbing. Musculoskeletal: No swollen or erythematous joints. Neurological: Moves all 4 extremities. No myoclonus. Data 10/13/23 22:05 10/13/23 22:05 Micro: Microbiology 10/13/23 23:14 Blood Culture - Preliminary Blood SPECIMEN COLLECTED 10/13/23 23:10 Blood Culture - Preliminary Blood SPECIMEN COLLECTED A&P Assessment and plan (1) Sepsis: Severe sepsis SIRS: Tachypneic with respiratory rate of 24, leukocytosis with WBC 17 Source: Possible urinary tract infection versus other occult infection Repeating urinalysis due to squamous cells Continue monitor for existence of other infection Endorgan damage: BERNADETTE on CKD Blood cultures x 2 Check procalcitonin Multiple recent hospitalizations noted Start cefepime for broad coverage Start vancomycin; MRSA screen ordered Continue telemetry monitoring Supportive care (2) BERNADETTE (acute kidney injury): BERNADETTE on CKD stage II Suspect secondary to sepsis Hold lisinopril and Bumex for tonight Strict I&O Daily weights Renally dose medications (3) Congestive heart failure: Heart failure with reduced ejection Status post IV fluid boluses in ED, she is very high risk for CHF exacerbation Continue beta srikanth Hold Bumex for tonight, reassess volume status and labs in AM NT proBNP backordered Telemetry monitoring Qualifiers: Heart failure chronicity: acute on chronic Heart failure type: diastolic Qualified Code(s): I50.33 - Acute on chronic diastolic (congestive) heart failure (4) Abdominal pain: Etiology of her abdominal pain is unclear Status post cholecystectomy earlier in the year Recently offered gastroenterology referral to general surgery clinic (5) Recurrent UTI: Hx of recurrent UTI Current urinalysis with squamous cells c/w contamination We will proceed to repeat the urinalysis with hopefully a clean-catch (6) HTN (hypertension): Hold lisinopril and Bumex due to soft blood pressure and BERNADETTE Qualifiers: Hypertension type: primary hypertension Qualified Code(s): I10 - Essential (primary) hypertension (7) CAD (coronary artery disease): Continue Plavix (8) Atrial fibrillation: Continue metoprolol for rate control Continue apixaban for stroke prophylaxis (9) Gout: Hold allopurinol for tonight, consider reinitiating at lower dose in a.m. pending renal function Qualifiers: Gout site: ankle Gout etiology: due to renal impairment Chronicity: chronic Laterality: unspecified laterality Presence of tophus: without tophus Qualified Code(s): 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, unspecified ankle and foot, without tophus (tophi) (10) GERD (gastroesophageal reflux disease): Continue pending preop result (11) Anxiety: Continue home Xanax Continue home SSRI Plan DVT prophylaxis: Apixaban CODE STATUS: Full code Attestations Medical Necessity Statement*: Patient presents with multiple complaints, found to have severe sepsis with expected hospitalization to cross 2 midnights for IV antibiotics, cultures, serial exams, and supportive care. Coding Level of Care Code Acute Code for [facility] Fwd Diagnoses Sepsis A41.9 BERNADETTE (acute kidney injury) N17.9 Acute on chronic diastolic congestive heart failure I50.33 Heart failure chronicity: acute on chronic Heart failure type: diastolic Abdominal pain R10.9 Recurrent UTI N39.0 Primary hypertension I10 Hypertension type: primary hypertension CAD (coronary artery disease) I25.10 Atrial fibrillation I48.91 Chronic gout due to renal impairment involving ankle without tophus, unspecified laterality M1A.3790 Gout site: ankle Gout etiology: due to renal impairment Chronicity: chronic Laterality: unspecified laterality Presence of tophus: without tophus GERD (gastroesophageal reflux disease) K21.9 Anxiety F41.9
[2023-10-14] MEDS: sodium chloride 0.9% 500 ML 999 ML IV (01:25)
[2023-10-14] MEDS: sodium chloride 0.9% 1,000 ML 999 ML IV (01:26)
--- NOTE | 2023-10-14 01:42 | PC.NURSE ---
Report was called to Laurie WANG in CSU; all questions and concerns were addressed at time of report. Pt was transferred with all paperwork and belongings.
[2023-10-14 01:57] LABS: NT Pro B Type Natriuretic Pept 28252 pg/mL (0-125); Procalcitonin 9.88 ng/mL (0-0.5)
[2023-10-14 02:29] LABS: Magnesium 1.3 mg/dL (1.7-2.3)
[2023-10-14] MEDS: HYDROmorphone 1 mg/mL INJ 1 mL 0.200000000000000011 MG IVP (03:00)
[2023-10-14] MEDS: cefepime 1,000 MG in sodium chloride 0.9% (plus) 50 ML 100 MG IV ×2 (03:01→15:00)
[2023-10-14] MEDS: vancomycin 1,250 MG/250 ML PIGGYBACK 250 MG IV (03:26)
[2023-10-14] MEDS: magnesium sulfate premix 2 GM/50 ML PIGGYBACK IV (05:07)
[2023-10-14] MEDS: sertraline 100 mg Tablet PO (05:08)
[2023-10-14] MEDS: atorvastatin 40 mg Tablet PO (05:08)
--- NOTE | 2023-10-14 05:26 | PC.NURSE ---
called report to Serina WANG in ICU called and inform pt's of transfer
[2023-10-14] MEDS: norepinephrine 4 MG/250 ML BAG 15 MG IV ×2 (05:38→20:33)
--- NOTE | 2023-10-14 05:41 | PC.NURSE ---
Received patient from [facility] via bed. Blood pressure 55/33, levophed started as ordered. Patient reports generalize pain all over body. 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 No acute distress noted, O2 sat 87%, place on 2L NC.
[2023-10-14 07:11] LABS: Basophils % 0.1 %; Hematocrit 36.9 % (36-47); Lymphocytes # 0.3 10^3/uL (0.8-4.8); Lymphocytes % 1.2 %; Mean Corpuscular HGB Conc 31.2 g/dL (30-55); Mean Corpuscular Volume 99.5 fl (85-98); Monocytes # 0.7 10^3/uL (0.2-0.9); Monocytes % 3.2 %; Neutrophils # 20.45 10^3/uL (1.8-7.7); Neutrophils % 94.5 %; Nucleated Red Blood Cells % 0 %; Platelet Count 140 10^3/cmm (157-399); Red Blood Count 3.71 10^6/uL (3.85-5.65); Red Cell Distribution Width 17.2 % (12.1-15.1); White Blood Count 21.66 10^3/uL (3.29-11.43)
[2023-10-14 07:38] LABS: Alanine Aminotransferase 32 U/L (0-33); Albumin Level 3.1 g/dL (3.5-5.2); Alkaline Phosphatase 248 U/L (35-105); Anion Gap 16.4 (5-19); Aspartate Amino Transferase 110 U/L (0-32); Blood Urea Nitrogen 41 mg/dL (8-23); Calcium 8.2 mg/dL (8.5-10.5); Carbon Dioxide 25 mmol/L (22-29); Chloride 94 mmol/L (98-107); Creatinine Clr Calc Pharmacy 28.1818; Globulin 2.4 g/dL (1.3-4.6); Glucose 103 mg/dL (65-115); Magnesium 1.7 mg/dL (1.7-2.3); Osmolality Calculated 284 mOsm/kg (285-295); Phosphorus 2.4 mg/dL (2.5-4.5); Potassium 3.4 mmol/L (3.5-5.1); Sodium 132 mmol/L (136-145); Total Bilirubin 4.6 mg/dL (0.15-1.2); Total Protein 5.5 g/dL (6.6-8.7)
[2023-10-14] MEDS: pantoprazole DR 40 mg Tablet PO (09:10)
[2023-10-14] MEDS: apixaban 5 mg Tablet PO ×2 (09:10→18:03)
[2023-10-14 12:01] LABS: Adenovirus Not Detected (NOT DETECT); Chlamydia Pneumoniae Not Detected (NOT DETECT); Coronavirus 229E,HKU1,NL63,OC4 Not Detected (NOT DETECT); Human Metapneumovirus Not Detected (NOT DETECT); Human Rhinovirus/Enterovirus Not Detected (NOT DETECT); Influenza A Not Detected (NOT DETECT); Influenza A H1 Not Detected (NOT DETECT); Influenza A H1-2009 Not Detected (NOT DETECT); Influenza A H3 Not Detected (NOT DETECT); Influenza B Not Detected (NOT DETECT); Mycoplasma Pneumoniae Not Detected (NOT DETECT); Parainfluenza Virus Type 1 Not Detected (NOT DETECT); Parainfluenza Virus Type 2 Not Detected (NOT DETECT); Parainfluenza Virus Type 3 Not Detected (NOT DETECT); Parainfluenza Virus Type 4 Not Detected (NOT DETECT); Respiratory Syncytial Virus A Not Detected (NOT DETECT); Respiratory Syncytial Virus B Not Detected (NOT DETECT); SARS-COV-2 Not Detected (NOT DETECT)
[2023-10-14 13:32] LABS: Protein Urine Trace (Negative); Specific Gravity, Urine 1.015 (1.005-1.030); Urine Appearance Clear (CLEAR); Urine Color Dark yellow (Yellow); pH Urine 5 (5-7)
[2023-10-14 13:33] LABS: Bilirubin Urine 1+ (Negative); Blood Urine Trace (Negative); Glucose Urine UA Norm (Normal); Ketones Urine Negative (Negative); Leukocyte Esterase Urine 1+ (Negative); Nitrate Urine Negative (Negative); Urobilinogen Urine Norm (Negative)
[2023-10-14 13:35] LABS: Add Urine Culture? No; Bacteria Urine 1+ /hpf
--- NOTE | 2023-10-14 14:17 | P.PN_ITS ---
Subjective 2 Subjective: She is a new admission from overnight. Seen her at bedside this morning, she is alert awake and oriented x 3. She denied any localizing pain or shortness of breath or chest discomfort. She reports she was brought in by to the hospital by an ambulance. She was recently admitted to the hospital a week ago for CHF exacerbation Medications: Reviewed: Yes Vitals/I&O/Wt Last Vital Signs Temp 98.2 F 10/14/23 07:57 Pulse 70 10/14/23 14:00 Resp 23 H 10/14/23 13:00 BP 119/64 10/14/23 13:00 Pulse Ox 94 10/14/23 13:00 O2 Del Method Nasal Cannula 10/14/23 13:00 O2 Flow Rate 2 10/14/23 13:00 10/13/23 10/14/23 10/14/23 22:59 06:59 14:59 Intake Total 2990 / 2990 219.5 / 219.5 Output Total 350 / 350 Balance 2990 / 2990 -130.5 / -130.5 Weight last 48 hrs Weight 78.834 kg Weight 80.711 kg Weight 76.204 kg Physical Exam 2 Narrative: General: Patient is awake. Ill-appearing. Head: Normocephalic. Atraumatic. EOM intact. Neck: No JVD. Cardiovascular: RRR. No gallops. No murmurs. mediPort for vascular access is placed in chest Lungs: Breath sounds diminished bilateral bases, no use of accessory muscles, no crackles or wheezes. On room air. Skin: No jaundice. No rashes. Abdomen: Normal bowel sounds, abdomen soft. Tenderness palpation all 4 quadrants. No guarding. Extremities: No cyanosis or clubbing. Musculoskeletal: No swollen or erythematous joints. Neurological: Moves all 4 extremities. No myoclonus. Data 10/14/23 07:05 10/14/23 07:05 Micro: Microbiology 10/13/23 23:14 Blood Culture - Preliminary Blood SPECIMEN COLLECTED 10/13/23 23:10 Blood Culture - Preliminary Blood SPECIMEN COLLECTED A&P Assessment and plan (1) Sepsis: Severe sepsis leukocytosis with WBC 21 Source: Possible urinary tract infection versus other occult infection Continue IV vancomycin and cefepime for now Continue Levophed to keep MAP more than 65 Multiple recent hospitalizations noted Continue telemetry monitoring Supportive care (2) BERNADETTE (acute kidney injury): BERNADETTE on CKD stage II, creatinine at 1.9 Will start on IV lactated Ringer at 50 MLS per hour Suspect secondary to sepsis Hold lisinopril and Bumex for tonight Strict I&O Daily weights Renally dose medications (3) Congestive heart failure: Heart failure with reduced ejection Status post IV fluid boluses in ED, she is very high risk for CHF exacerbation Continue beta srikanth Last 2D echo showed EF of 41%, with global hypokinesia Hold Bumex for tonight, reassess volume status and labs in AM Telemetry monitoring Qualifiers: Heart failure chronicity: acute on chronic Heart failure type: d iastolic Qualified Code(s): I50.33 - Acute on chronic diastolic (congestive) heart failure (4) Abdominal pain: Etiology of her abdominal pain is unclear Will check ultrasound abdomen to evaluate for any acute pathology given elevated bilirubin and alkaline phosphatase Status post cholecystectomy earlier in the year (5) Recurrent UTI: Hx of recurrent UTI Current urinalysis with squamous cells c/w contamination We will proceed to repeat the urinalysis with hopefully a clean-catch (6) HTN (hypertension): Hold lisinopril and Bumex due to soft blood pressure and BERNADETTE Qualifiers: Hypertension type: primary hypertension Qualified Code(s): I10 - Essential (primary) hypertension (7) CAD (coronary artery disease): Continue Plavix (8) Atrial fibrillation: Continue metoprolol for rate control Continue apixaban for stroke prophylaxis (9) Gout: Hold allopurinol for now Qualifiers: Gout site: ankle Gout etiology: due to renal impairment Chronicity: c hronic Laterality: unspecified laterality Presence of tophus: without tophus Qualified Code(s): 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 twice daily (11) Anxiety: Continue home Xanax Continue home SSRI Plan DVT prophylaxis: Apixaban CODE STATUS: Full code Attestations 2 Medical Necessity Statement*: Patient presents with multiple complaints, found to have severe sepsis with expected hospitalization to cross 2 midnights for IV antibiotics, cultures, serial exams, and supportive care. Time Spent in Patient Care: 35 minutes Coding Level of Care Code Critical Care >/= 30 minutes Diagnoses Sepsis A41.9 BERNADETTE (acute kidney injury) N17.9 Acute on chronic diastolic congestive heart failure I50.33 Heart failure chronicity: acute on chronic Heart failure type: diastolic Abdominal pain R10.9 Recurrent UTI N39.0 Primary hypertension I10 Hypertension type: primary hypertension CAD (coronary artery disease) I25.10 Atrial fibrillation I48.91 Chronic gout due to renal impairment involving ankle without tophus, unspecified laterality M1A.3790 Gout site: ankle Gout etiology: due to renal impairment Chronicity: chronic Laterality: unspecified laterality Presence of tophus: without tophus GERD (gastroesophageal reflux disease) K21.9 Anxiety F41.9 Time Spent (min) 35
--- NOTE | 2023-10-14 14:25 | USR_ITS ---
PROCEDURE INFORMATION: Exam: US Abdomen Complete Exam date and time: 10/14/2023 4:22 PM Age: 73 years old Clinical indication: Abnormal findings; Abnormal lab test; Other: Elevated bili and alk phos, prior surgery; Surgery date: 6+ months; Surgery type: Gb removed; Additional info: Suspecting acute cholecystitis, elevated bili and alk phos, PT npo- for the most part TECHNIQUE: Imaging protocol: Real-time ultrasound of the abdomen with image documentation. Complete exam. COMPARISON: US renal BI* [id number] 04/15/2023 11:20 AM FINDINGS: Liver: Somewhat lobular hepatic contour, suggesting cirrhosis. Gallbladder: Surgically absent. Biliary ducts: Common bile duct dilatation to approximately 1.1 cm, likely postsurgical. No stones. Pancreas: Unremarkable as visualized. Right kidney: Mildly atrophic and echogenic. 1.5 x 1.4 x 1.6 cm upper pole cyst. No solid mass. No definite stones. No hydronephrosis. Left kidney: No mass. No definite stones. No hydronephrosis. Spleen: Unremarkable. Intraperitoneal space: Small ascites. Aorta: Unremarkable as visualized. No aneurysm. Inferior vena cava: Unremarkable as visualized. US/US abdomen complete* [id number] IMPRESSION: 1. Somewhat lobular hepatic contour, suggesting cirrhosis. 2. Small ascites. 3. Atrophic, echogenic right kidney. 4. Additional findings, as above.
[2023-10-14] MEDS: pantoprazole 40 mg SDV IVP (15:00)
[2023-10-14] MEDS: lactated ringers 1,000 ML 50 ML IV (15:00)
[2023-10-14] MEDS: acetaminophen 325 mg Tablet 650 MG PO (18:03)
[2023-10-14] MEDS: clopidogrel 75 mg Tablet PO (20:32)
--- NOTE | 2023-10-14 21:32 | ECG_ITS ---
[facility] Test Date: 2023-10-14 Pat Name: Essie Alejandre Department: Room: ICU10 Gender: Female Doors Prefitter: : 1950 Requested By: Dex Verde Order Number: [id number] Jj MD: Ghulam Allen M.D. Measurements Intervals [place] Rate: 71 P: 0 WA: 0 QRS: -66 QRSD: 164 T: 107 QT: 464 QTc: 506 Interpretive Statements ELECTRONIC VENTRICULAR PACEMAKER ABNORMAL RHYTHM ECG Compared to ECG 10/06/2023 01:57:03 No significant changes Electronically Signed On 10-16-2023 20:13:30 CDT by Ghulam Allen M.D. [id number]
[2023-10-14 22:10] LABS: Troponin T (5th) Once 129 ng/L (0-10)
[2023-10-14 22:51] LABS: Add Urine Microscopic? YES; Bilirubin Urine 1+ (Negative); Blood Urine Neg (Negative); Glucose Urine UA Norm (Normal); Ketones Urine 1+ (Negative); Leukocyte Esterase Urine Negative (Negative); Nitrate Urine Negative (Negative); Protein Urine Trace (Negative); Specific Gravity, Urine 1.015 (1.005-1.030); Urine Appearance Cloudy (CLEAR); Urine Color Yellow (Yellow); Urobilinogen Urine 1 mg/dL (Negative); pH Urine 5 (5-7)
[2023-10-14 22:52] LABS: Bacteria Urine 2+ /hpf; Mucus Urine TRACE /hpf; RBC Urine 0-4 /hpf (0-2); Squamous Epithelial Cell Urine 15-25 /hpf (0-5)
--- NOTE | 2023-10-14 23:13 | PC.NURSE ---
EKG paced rhythm rate 71. Troponin 129.
[2023-10-15] VITALS (55 sets, daily range): BP systolic 86–136; BP diastolic 44–102; PULSE 63–79; RESP 18–30; TEMP 36.3–37.5; O2SAT 92–100
--- NOTE | 2023-10-15 03:53 | PC.NURSE ---
Called into patient's room, stated I pulled by dressing off my iv site by accident. Noted clear dressing to be loose around mediport needle access device, but still stuck to device itself. Attempted to remove sticky dressing from access device, but device activated safety mechanism removing device. Site with 1/2 inch scab noted, site cleansed to re-access when noted purulent drainage out of previous access site and scab. Culture obtained, dry sterile non occlusive dressing applied to site. Dr. Schmidt notified of drainage - ordered culture to be sent to lab and site to remain un-accessed.
[2023-10-15 04:46] LABS: Basophils % 0.3 %; Eosinophils % 0.1 %; Hematocrit 37.6 % (36-47); Lymphocytes # 0.4 10^3/uL (0.8-4.8); Lymphocytes % 2.6 %; Mean Corpuscular HGB Conc 31.1 g/dL (30-55); Mean Corpuscular Hemoglobin 30.8 pg (27-33); Mean Corpuscular Volume 98.9 fl (85-98); Monocytes # 0.7 10^3/uL (0.2-0.9); Monocytes % 5.4 %; Neutrophils # 12.14 10^3/uL (1.8-7.7); Nucleated Red Blood Cells % 0 %; Platelet Count 130 10^3/cmm (157-399); Red Cell Distribution Width 17.2 % (12.1-15.1); White Blood Count 13.34 10^3/uL (3.29-11.43)
[2023-10-15 05:09] LABS: Alanine Aminotransferase 35 U/L (0-33); Alkaline Phosphatase 331 U/L (35-105); Anion Gap 14.3 (5-19); Aspartate Amino Transferase 101 U/L (0-32); Blood Urea Nitrogen 44 mg/dL (8-23); C Reactive Protein 163.2 mg/L (0.0-4.9); Calcium 8.5 mg/dL (8.5-10.5); Carbon Dioxide 27 mmol/L (22-29); Chloride 94 mmol/L (98-107); Globulin 2.8 g/dL (1.3-4.6); Glucose 119 mg/dL (65-115); Osmolality Calculated 286 mOsm/kg (285-295); Potassium 3.3 mmol/L (3.5-5.1); Sodium 132 mmol/L (136-145); Total Bilirubin 4.5 mg/dL (0.15-1.2); Total Protein 5.8 g/dL (6.6-8.7)
[2023-10-15 05:10] LABS: Procalcitonin 4.07 ng/mL (0-0.5); Troponin T (5th) Once 115 ng/L (0-10)
[2023-10-15] MEDS: pantoprazole 40 mg SDV IVP ×2 (05:54→15:30)
[2023-10-15] MEDS: sertraline 100 mg Tablet PO (05:54)
[2023-10-15] MEDS: atorvastatin 40 mg Tablet PO (05:54)
--- NOTE | 2023-10-15 06:00 | XRR_ITS ---
PROCEDURE INFORMATION: Exam: XR Chest Exam date and time: 10/15/2023 6:00 AM Age: 73 years old Clinical indication: Prior surgery; Surgery date: 6+ months; Surgery type: Open heart. Pacer; Patient HX: F/u for chf. TECHNIQUE: Imaging protocol: Radiologic exam of the chest. Views: 1 view. COMPARISON: CR XR chest 1V portable [id number] 10/05/2023 1:40 PM FINDINGS: Tubes, catheters and devices: Multilead pacemaker/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. Lungs: Increasing density in the left lower lobe representing developing atelectasis or consolidation. Pleural spaces: Unremarkable. No pleural effusion. No pneumothorax. Heart/Mediastinum: Unremarkable. No cardiomegaly. Bones/joints: Status post median sternotomy. XR/XR chest 1V portable [id number] IMPRESSION: No acute findings.
[2023-10-15] MEDS: cyclobenzaprine 10 mg Tablet 5 MG PO (06:43)
--- NOTE | 2023-10-15 09:17 | PC.NURSE ---
Family Patient's , Dex, called and notified of plan for surgery this afternoon to remove her port. He is traveling through [facility] headed this way.
--- NOTE | 2023-10-15 09:24 | P.ANESASSM_ITS ---
Pre-Anesthetic Assessment Height/Weight: Height 1.65 m Weight 82 kg Temp Pulse Resp BP Pulse Ox O2 Del Method O2 Flow Rate 99.5 F 72 25 H 122/54 100 Nasal Cannula 2 10/15/23 04:00 10/15/23 09:00 10/15/23 09:00 10/15/23 09:00 10/15/23 09:00 10/15/23 09:00 10/15/23 09:00 Operation Date: 10/15/23 12:15 Proposed Procedures p Portacath Removal(Not Applicable) - Anthony Stoner MD Familial anesthetic complications: NOne Was Beta Misa taken within 24 hours: N/A Was Clonidine taken within 24 hours: N/A Last intake: > 8hrs Social No alcohol and No tobacco Exam alert, oriented x 3, clear to auscultation bilaterally and regular rate & rhythm Airway Mallampati: Class II Dentition: chipped Pulmonary Sleep Apnea CV/HEM Atrial Fibrillation, Coronary Artery Disease and Congestive Heart Failure echo CONCLUSIONS The ventricle is mildly to moderately enlarged. There is global left ventricular hypokinesis. This is severe in nature. The ejection fraction is probably in the 30% range at most. Diastolic function cannot be determined due to the irregular rhythm. The right ventricle is mildly enlarged and there is mild right ventricular hypokinesis.mild pulmonary hypertension, RVSP 48.6 mmHg. Moderately increased right atrial size. Moderately increased left atrial size. Structurally normal mitral valve. Mild-moderate mitral valve regurgitation. Structurally normal trileaflet aortic valve. No aortic valve stenosis. Mild aortic valve regurgitation. Severely dilated IVC. Dilated IVC with decreased respiratory variation. Right atrial pressure 15 mmHg. The previous study was done 3 months ago. There appears to be a slight reduction in the left ventricular ejection fraction since then, however there is difficulty in comparing the 2 studies due to the technical difficulties. Otherwise, no change. Chronic Renal Insufficiency GI Gastroesophageal Reflux Disease Anesthetic Plan ASA status: 4 Anesthesia: MAC Other: fluid restriction Risk of > 500 ml blood loss (7ml/kg in children): No Medications/Allergies Home Medications Medication Instructions Recorded Confirmed Last Taken Type multivitamin 1 tab PO QAM 06/08/21 10/14/23 1 Day Ago History ~10/13/23 omega-3 fatty acids 1,000 mg 1,000 mg PO DAILY 03/24/22 10/14/23 1 Day Ago History capsule ~10/13/23 acetaminophen 650 mg 1,300 mg PO BID 09/17/22 10/14/23 1 Day Ago History tablet,extended release (Tylenol ~10/13/23 Arthritis Pain) nitroglycerin 0.4 mg sublingual 0.4 mg sublingual Q5M PRN Chest 12/06/22 10/14/23 Unknown Rx tablet (Nitrostat) Pain #30 tabs atorvastatin 40 mg tablet 40 mg PO QAM #90 tabs 12/13/22 10/14/23 1 Day Ago Rx ~10/13/23 sertraline 100 mg tablet 100 mg PO QAM #90 tabs 12/13/22 10/14/23 1 Day Ago Rx ~10/13/23 pantoprazole 40 mg tablet,delayed 40 mg PO BID 04/23/23 10/14/23 1 Day Ago History release ~10/13/23 allopurinol 100 mg tablet 400 mg (4 x 100 mg) PO DAILY #120 04/27/23 10/14/23 1 Day Ago Rx tabs ~10/13/23 ascorbic acid (vitamin C) 500 mg See Rx Instructions .Route .COMPLEX 06/06/23 10/14/23 2 Days Ago History tablet (Vitamin C) ~10/12/23 bisacodyl 5 mg tablet,delayed 5 mg PO DAILY PRN Constipation 06/06/23 10/14/23 08/24/23 History release (Dulcolax (bisacodyl)) ferrous sulfate 325 mg (65 mg See Rx Instructions .Route .COMPLEX 06/06/23 10/14/23 2 Days Ago History iron) tablet (Iron (ferrous ~10/12/23 sulfate)) albuterol sulfate 90 mcg/actuation 2 puff inhalation QID PRN 06/29/23 10/14/23 1 Day Ago Rx aerosol inhaler Shortness Of Breath #8.5 grams ~10/13/23 alprazolam 0.5 mg tablet 0.5 mg PO DAILY PRN Anxiety #20 06/29/23 10/14/23 08/29/23 Rx tabs galantamine 4 mg tablet 4 mg PO BID #60 tabs 07/15/23 10/14/23 1 Day Ago Rx ~10/13/23 metoprolol tartrate 25 mg tablet 25 mg PO BID #120 tabs 07/19/23 10/14/23 1 Day Ago Rx ~10/13/23 apixaban 5 mg tablet (Eliquis) 5 mg PO BID 08/01/23 10/14/23 1 Day Ago History ~10/13/23 clopidogrel 75 mg tablet 75 mg PO BEDTIME 08/01/23 10/14/23 1 Day Ago History ~10/13/23 magnesium chloride 71.5 mg 71.5 mg PO BID #60 tabs 09/06/23 10/14/23 1 Day Ago Rx (magnesium chloride) ~10/13/23 tablet,delayed release (Slow-Mag) potassium chloride 20 mEq 20 meq PO BID #60 tabs 09/06/23 10/14/23 1 Day Ago Rx tablet,extended release(part/cryst) ~10/13/23 bumetanide 1 mg tablet See Rx Instructions .Route 10/08/23 10/14/23 1 Day Ago Rx .COMPLEX #90 tabs ~10/13/23 lisinopril 10 mg tablet 5 mg (1/2 x 10 mg) PO DAILY #90 10/08/23 10/14/23 1 Day Ago Rx tabs ~10/13/23 magnesium 200 mg tablet 200 mg PO DAILY #30 tabs 10/08/23 10/14/23 1 Day Ago Rx ~10/13/23 amoxicillin 875 mg-potassium 1 tab PO BID 7 days #14 tabs 10/13/23 10/14/23 Unknown Rx clavulanate 125 mg tablet Allergies Allergy/AdvReac Type Severity Reaction Status Date / Time tizanidine Allergy Unknown ADR-Halluci Verified 10/13/23 10:10 nating levofloxacin [From Levaquin] Allergy ALGY-Redness Verified 10/13/23 10:10 of Skin Sulfa (Sulfonamide Allergy hives Verified 10/13/23 10:10 Antibiotics) adhesive tape AdvReac Mild Unknown Verified 10/13/23 10:10 Current Medications Generic Name Dose Route Start Last Admin Trade Name Freq PRN Reason Stop Dose Admin Acetaminophen 650 mg 10/14/23 02:07 10/14/23 18:03 Acetaminophen 325 Mg Tablet PO 650 mg Q6H PRN Administration Mild/Mod Pain Or Temp >/= 101 Apixaban 5 mg 10/14/23 09:00 10/15/23 09:14 Apixaban 5 Mg Tablet PO Not Given BID JEREMY Atorvastatin Calcium 40 mg 10/14/23 06:00 10/15/23 05:54 Atorvastatin 40 Mg Tablet PO 40 mg QAM JEREMY Administration Clopidogrel Bisulfate 75 mg 10/14/23 21:00 10/14/23 20:32 Clopidogrel 75 Mg Tablet PO 75 mg BEDTIME JEREMY Administration Vancomycin/PEG/NADA/Lysine/Water 1,250 mg in 250 mls @ 250 mls/hr 10/14/23 02:30 10/14/23 04:44 Vancocin IV Infused Q48H JEREMY Infusion Norepinephrine Bitartrate 4 mg in 250 mls @ 0 mls/hr 10/14/23 05:45 10/15/23 05:25 Levophed IV 2 mcg/min .Q0M JEREMY 7.5 mls/hr Titration Protocol Per Protocol Lactated Ringer's 1,000 mls @ 50 mls/hr 10/14/23 14:30 10/14/23 15:00 Lactated Ringers IV 50 mls/hr .Q20H JEREMY Administration Pantoprazole Sodium 40 mg 10/14/23 16:00 10/15/23 05:54 Pantoprazole 40 Mg Sdv IVP 40 mg Q12H JEREMY Administration Sertraline HCl 100 mg 10/14/23 06:00 10/15/23 05:54 Sertraline 100 Mg Tablet PO 100 mg QAM JEREMY Administration PFSH Anesthesia Medical History (Updated 10/14/23 @ 02:17 by Radha Berry MD) Hospital discharge follow-up Leg swelling CVA (cerebral vascular accident) History of colon polyps Shortness of breath Mastitis Breast enlargement Cholecystitis Bacterial vaginosis Needs flu shot UTI (urinary tract infection) Degenerative disc disease, cervical Neuropathy Staphylococcus epidermidis bacteremia Pulmonary embolism Mixed incontinence urge and stress Facet arthritis, degenerative, cervical spine Cervical osteoarthritis Chronic neck pain Chest pain Follow-up exam Edema of all four extremities Abnormal laboratory test result Neutropenia Diuretic-induced hypokalemia Parainfluenza infection Acute exacerbation of chronic obstructive pulmonary disease Chronic headaches Acute alteration in mental status Essential hypertension Thrush, oral Dysphagia Hypokalemia Hypomagnesemia Mixed dyslipidemia Fatigue Allergic rhinitis Esophageal spasm GERD with esophagitis Lumbar disc disease with radiculopathy Facet arthropathy, lumbar GERD without esophagitis Establishing care with new doctor, encounter for Nausea & vomiting High risk medication use High risk medication use Thrush Cellulitis Anemia Port-A-Cath in place Poor venous access Hearing loss associated with syndrome of both ears NSTEMI (non-ST elevated myocardial infarction) Elevated troponin I level Acute cystitis without hematuria Intracranial atherosclerosis Balance disorder Cognitive impairment Cardiac 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 therapy 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 ([employer]-D) in place Recurrent UTI CKD (chronic kidney disease) stage 3, GFR 30-59 ml/min 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 GERD (gastroesophageal reflux disease) Hyperlipidemia Iron deficiency anemia Gout Sleep apnea Vertebral artery stenosis Left bundle branch block Right internal carotid artery aneurysm Vertebrobasilar insufficiency Atrial fibrillation PAD (peripheral artery disease) Renal artery stenosis Cardiomyopathy CHF (congestive heart failure) Anticoagulant long-term use BASIA (obstructive sleep apnea) HTN (hypertension) Chronic renal insufficiency, stage II (mild) Surgical History (Updated 10/14/23 @ 01:30 by Dex Schmidt MD) Status post cholecystectomy Hx of arthroscopy of right knee S/P appendectomy S/P section S/P hysterectomy Status post tubal ligation Status post aorto-coronary artery bypass graft S/P CABG (coronary artery bypass graft) S/P angioplasty with stent S/P ICD (internal cardiac 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) procedure H/O cardiac radiofrequency ablation Family History Father , AT AGE 65 Hyperlipidemia CAD (coronary artery disease) Hypertension Rheumatoid arthritis Mother , AT AGE 65 Hyperlipidemia CAD (coronary artery disease) Hypertension Diabetes Sister Hyperlipidemia CAD (coronary artery disease) Hypertension Diabetes Other Cancer Social History Smoking and tobacco/nicotine status: former use of tobacco/nicotine Second hand smoke exposure: No Alcohol intake: never Substance/Drug Use: never Marital status: Current occupational status: retired Female Reproductive History Spontaneous abortions: No Data Anesthesia 10/15/23 04:00 10/15/23 04:00 Short CBC 10/13/23 10/14/23 10/15/23 Range/Units 22:05 07:05 04:00 WBC 17.79 H 21.66 H 13.34 H (3.29-11.43) 10^3/uL Hgb 11.00 L 11.50 11.70 (11.27-16.99) g/dL Hct 35.0 L 36.9 37.6 (36-47) % MCV 98.6 H 99.5 H 98.9 H (85-98) fl Plt Count 118 L 140 L 130 L (157-399) 10^3/cmm Neut % (Auto) 95.5 94.5 91.0 % Neut # (Auto) 16.99 H 20.45 H 12.14 H (1.8-7.7) 10^3/uL BMP 10/13/23 10/14/23 10/15/23 22:05 07:05 04:00 Sodium 132 L 132 L 132 L Potassium 3.4 L 3.4 L 3.3 L Chloride 94 L 94 L 94 L Carbon Dioxide 27 25 27 BUN 40 H 41 H 44 H Creatinine 2.0 H 1.9 H 1.5 H Glucose 113 103 119 H Calcium 8.4 L 8.2 L 8.5 Cardiac Enzymes 10/13/23 10/14/23 10/15/23 Range/Units 22:05 21:41 04:00 Troponin T 5th Gen ng/L 129 H* 115 H* (0-10) ng/L NT-Pro-B Natriuret Pep [id number] H (0-125) pg/mL Liver Function 10/13/23 10/14/23 10/15/23 Range/Units 22:05 07:05 04:00 Total Bilirubin 4.1 H 4.6 H 4.5 H (0.15-1.2) mg/dL AST 116 H 110 H 101 H (0-32) U/L ALT 30 32 35 H (0-33) U/L Alkaline Phosphatase 222 H 248 H 331 H (35-105) U/L Albumin 3.0 L 3.1 L 3.0 L (3.5-5.2) g/dL Urine 10/13/23 10/14/23 10/14/23 Range/Units 23:37 13:05 22:15 Urine Color Other A Dark yellow Yellow (Yellow) Urine Appearance Cloudy A Clear Cloudy A (CLEAR) Urine pH 5 5 5 (5-7) Ur Specific Bryce 1.020 1.015 1.015 (1.005-1.030) Urine Protein Trace Trace Trace (Negative) Urine Glucose (UA) Norm Norm Norm (Normal) Urine Ketones 1+ H Negative 1+ H (Negative) Urine Nitrate Negative Negative Negative (Negative) Urine Bilirubin 2+ H 1+ H 1+ H (Negative) Ur Leukocyte Esterase 2+ H 1+ H Negative (Negative) Urine RBC 0-4 H None 0-4 H (0-2) /hpf Urine WBC 25-40 H 5-10 H 5-10 H (0-5) /hpf COVID Results 10/14/23 09:15 Coronavirus 229E (PCR) Not detected SARS-CoV-2 (PCR) Not detected Coags 10/13/23 10/15/23 22:05 04:00 C-Reactive Protein 126.3 H 163.2 H Microbiology 10/13/23 23:14 Blood Culture - Preliminary Blood NEGATIVE TO DATE 10/13/23 23:10 Blood Culture - Preliminary Blood NEGATIVE TO DATE Cardiac Studies: 2 Echocardiogram 06/21/23 Echocardiogram Limited Views 10/05/23 Transesophageal Echocardiogram 09/21/22 Sestamibi Stress Test (Cardiology) 10/05
--- NOTE | 2023-10-15 09:59 | PM.CONSULT ---
Providers/Reason For Consult Consulting Physician/Specialty*: General surgery Reason for Consult*: port site infection Attending Physician: Susanne Vincent MD Primary Care Provider: Derek Dowd DO History of Present Illness History of Present Illness Essie Alejandre is a 73 year old female with history of Mediport placement at the end of September who presents to the hospital with bodyaches subjective fever and malaise. She was noted to have elevated well white count and acute on chronic kidney injury with clinical picture consistent of sepsis. Initial evaluation did not show a source of infection but over the last 24 hours it has been noted that the port site in the right upper chest was noted to be erythematous and started to have seropurulent drainage. Review of Systems General: Reports: 10 or more systems reviewed and unremarkable except in HPI and below Medications/Allergies Home Medications Medication Instructions Recorded Confirmed Last Taken Type multivitamin 1 tab PO QAM 06/08/21 10/14/23 1 Day Ago History ~10/13/23 omega-3 fatty acids 1,000 mg 1,000 mg PO DAILY 03/24/22 10/14/23 1 Day Ago History capsule ~10/13/23 acetaminophen 650 mg 1,300 mg PO BID 09/17/22 10/14/23 1 Day Ago History tablet,extended release (Tylenol ~10/13/23 Arthritis Pain) nitroglycerin 0.4 mg sublingual 0.4 mg sublingual Q5M PRN Chest 12/06/22 10/14/23 Unknown Rx tablet (Nitrostat) Pain #30 tabs atorvastatin 40 mg tablet 40 mg PO QAM #90 tabs 12/13/22 10/14/23 1 Day Ago Rx ~10/13/23 sertraline 100 mg tablet 100 mg PO QAM #90 tabs 12/13/22 10/14/23 1 Day Ago Rx ~10/13/23 pantoprazole 40 mg tablet,delayed 40 mg PO BID 04/23/23 10/14/23 1 Day Ago History release ~10/13/23 allopurinol 100 mg tablet 400 mg (4 x 100 mg) PO DAILY #120 04/27/23 10/14/23 1 Day Ago Rx tabs ~10/13/23 ascorbic acid (vitamin C) 500 mg See Rx Instructions .Route .COMPLEX 06/06/23 10/14/23 2 Days Ago History tablet (Vitamin C) ~10/12/23 bisacodyl 5 mg tablet,delayed 5 mg PO DAILY PRN Constipation 06/06/23 10/14/23 08/24/23 History release (Dulcolax (bisacodyl)) ferrous sulfate 325 mg (65 mg See Rx Instructions .Route .COMPLEX 06/06/23 10/14/23 2 Days Ago History iron) tablet (Iron (ferrous ~10/12/23 sulfate)) albuterol sulfate 90 mcg/actuation 2 puff inhalation QID PRN 06/29/23 10/14/23 1 Day Ago Rx aerosol inhaler Shortness Of Breath #8.5 grams ~10/13/23 alprazolam 0.5 mg tablet 0.5 mg PO DAILY PRN Anxiety #20 06/29/23 10/14/23 08/29/23 Rx tabs galantamine 4 mg tablet 4 mg PO BID #60 tabs 07/15/23 10/14/23 1 Day Ago Rx ~10/13/23 metoprolol tartrate 25 mg tablet 25 mg PO BID #120 tabs 07/19/23 10/14/23 1 Day Ago Rx ~10/13/23 apixaban 5 mg tablet (Eliquis) 5 mg PO BID 08/01/23 10/14/23 1 Day Ago History ~10/13/23 clopidogrel 75 mg tablet 75 mg PO BEDTIME 08/01/23 10/14/23 1 Day Ago History ~10/13/23 magnesium chloride 71.5 mg 71.5 mg PO BID #60 tabs 09/06/23 10/14/23 1 Day Ago Rx (magnesium chloride) ~10/13/23 tablet,delayed release (Slow-Mag) potassium chloride 20 mEq 20 meq PO BID #60 tabs 09/06/23 10/14/23 1 Day Ago Rx tablet,extended release(part/cryst) ~10/13/23 bumetanide 1 mg tablet See Rx Instructions .Route 10/08/23 10/14/23 1 Day Ago Rx .COMPLEX #90 tabs ~10/13/23 lisinopril 10 mg tablet 5 mg (1/2 x 10 mg) PO DAILY #90 10/08/23 10/14/23 1 Day Ago Rx tabs ~10/13/23 magnesium 200 mg tablet 200 mg PO DAILY #30 tabs 10/08/23 10/14/23 1 Day Ago Rx ~10/13/23 amoxicillin 875 mg-potassium 1 tab PO BID 7 days #14 tabs 10/13/23 10/14/23 Unknown Rx clavulanate 125 mg tablet Allergies Allergy/AdvReac Type Severity Reaction Status Date / Time tizanidine Allergy Unknown ADR-Halluci Verified 10/13/23 10:10 nating levofloxacin [From Levaquin] Allergy ALGY-Redness Verified 10/13/23 10:10 of Skin Sulfa (Sulfonamide Allergy hives Verified 10/13/23 10:10 Antibiotics) adhesive tape AdvReac Mild Unknown Verified 10/13/23 10:10 Current Medications Generic Name Dose Route Start Last Admin Trade Name Freq PRN Reason Stop Dose Admin Acetaminophen 650 mg 10/14/23 02:07 10/14/23 18:03 Acetaminophen 325 Mg Tablet PO 650 mg Q6H PRN Administration Mild/Mod Pain Or Temp >/= 101 Apixaban 5 mg 10/14/23 09:00 10/15/23 09:14 Apixaban 5 Mg Tablet PO Not Given BID JEREMY Atorvastatin Calcium 40 mg 10/14/23 06:00 10/15/23 05:54 Atorvastatin 40 Mg Tablet PO 40 mg QAM JEREMY Administration Clopidogrel Bisulfate 75 mg 10/14/23 21:00 10/14/23 20:32 Clopidogrel 75 Mg Tablet PO 75 mg BEDTIME JEREMY Administration Vancomycin/PEG/NADA/Lysine/Water 1,250 mg in 250 mls @ 250 mls/hr 10/14/23 02:30 10/14/23 04:44 Vancocin IV Infused Q48H JEREMY Infusion Norepinephrine Bitartrate 4 mg in 250 mls @ 0 mls/hr 10/14/23 05:45 10/15/23 05:25 Levophed IV 2 mcg/min .Q0M JEREMY 7.5 mls/hr Titration Protocol Per Protocol Lactated Ringer's 1,000 mls @ 50 mls/hr 10/14/23 14:30 10/14/23 15:00 Lactated Ringers IV 50 mls/hr .Q20H JEREMY Administration Pantoprazole Sodium 40 mg 10/14/23 16:00 10/15/23 05:54 Pantoprazole 40 Mg Sdv IVP 40 mg Q12H JEREMY Administration Sertraline HCl 100 mg 10/14/23 06:00 10/15/23 05:54 Sertraline 100 Mg Tablet PO 100 mg QAM JEREMY Administration PFSH Acute PFSH: Medical History (Updated 10/15/23 @ 10:04 by Anthony Stoner MD) Hospital discharge follow-up Leg swelling CVA (cerebral vascular accident) History of colon polyps Shortness of breath Mastitis Breast enlargement Cholecystitis Bacterial vaginosis Needs flu shot UTI (urinary tract infection) Degenerative disc disease, cervical Neuropathy Staphylococcus epidermidis bacteremia Pulmonary embolism Mixed incontinence urge and stress Facet arthritis, degenerative, cervical spine Cervical osteoarthritis Chronic neck pain Chest pain Follow-up exam Edema of all four extremities Abnormal laboratory test result Neutropenia Diuretic-induced hypokalemia Parainfluenza infection Acute exacerbation of chronic obstructive pulmonary disease Chronic headaches Acute alteration in mental status Essential hypertension Thrush, oral Dysphagia Hypokalemia Hypomagnesemia Mixed dyslipidemia Fatigue Allergic rhinitis Esophageal spasm GERD with esophagitis Lumbar disc disease with radiculopathy Facet arthropathy, lumbar GERD without esophagitis Establishing care with new doctor, encounter for Nausea & vomiting High risk medication use High risk medication use Thrush Cellulitis Anemia Port-A-Cath in place Poor venous access Hearing loss associated with syndrome of both ears NSTEMI (non-ST elevated myocardial infarction) Elevated troponin I level Acute cystitis without hematuria Intracranial atherosclerosis Balance disorder Cognitive impairment Cardiac 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 therapy 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 ([employer]D) in place Recurrent UTI CKD (chronic kidney disease) stage 3, GFR 30-59 ml/min 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 GERD (gastroesophageal reflux disease) Hyperlipidemia Iron deficiency anemia Gout Sleep apnea Vertebral artery stenosis Left bundle branch block Right internal carotid artery aneurysm Vertebrobasilar insufficiency Atrial fibrillation PAD (peripheral artery disease) Renal artery stenosis Cardiomyopathy CHF (congestive heart failure) Anticoagulant long-term use BASIA (obstructive sleep apnea) HTN (hypertension) Chronic renal insufficiency, stage II (mild) Surgical History (Updated 10/14/23 @ 01:30 by Dex Schmidt MD) Status post cholecystectomy Hx of arthroscopy of right knee S/P appendectomy S/P section S/P hysterectomy Status post tubal ligation Status post aorto-coronary artery bypass graft S/P CABG (coronary artery bypass graft) S/P angioplasty with stent S/P ICD (internal cardiac 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) procedure H/O cardiac radiofrequency ablation Family History Father , AT AGE 65 Hyperlipidemia CAD (coronary artery disease) Hypertension Rheumatoid arthritis Mother , AT AGE 65 Hyperlipidemia CAD (coronary artery disease) Hypertension Diabetes Sister Hyperlipidemia CAD (coronary artery disease) Hypertension Diabetes Other Cancer Social History Smoking and tobacco/nicotine status: former use of tobacco/nicotine Second hand smoke exposure: No Alcohol intake: never Substance/Drug Use: never Marital status: Current occupational status: retired Female Reproductive History: Spontaneous abortions: No Vitals/I&O/Wt Last Vital Signs Temp 99.5 F 10/15/23 04:00 Pulse 72 10/15/23 09:00 Resp 25 H 10/15/23 09:00 BP 122/54 10/15/23 09:00 Pulse Ox 100 10/15/23 09:00 O2 Del Method Nasal Cannula 10/15/23 09:00 O2 Flow Rate 2 10/15/23 09:00 10/14/23 10/15/23 10/15/23 22:59 06:59 14:59 Intake Total 510.500 / 730.000 215.5 / 945.500 0 / 0 Output Total 250 / 600 300 / 900 Balance 260.500 / 130.000 -84.5 / 45.500 0 / 0 Weight last 48 hrs Weight 180 lb 12.465 oz Weight 173 lb 12.8 oz Weight 177 lb 15 oz Weight 168 lb Physical Exam Chest: OTHER: Right upper chest port site was evaluated, there is erythematous but on the port site and the needle insertion site in the subclavicular region. Upon pressure there is seropurulent drainage from an area of previous access of the port. GI: OTHER: Abdomen is soft, nontender, nondistended. Urinary Catheter Management: Estes: Cath Placed During This Visit: yes Reason for Continuing Indwelling Catheter: Accurate Measurement of Urinary Output in Critically Ill Patients Urinary Catheter Date of Insertion: 10/14/23 Urinary Catheter Time of Insertion: 22:15 Data 10/15/23 04:00 10/15/23 04:00 Micro: Microbiology 10/13/23 23:14 Blood Culture - Preliminary Blood NEGATIVE TO DATE 10/13/23 23:10 Blood Culture - Preliminary Blood NEGATIVE TO DATE A&P Assessment and plan (1) Postprocedural puncture site infection: (2) Sepsis: Plan After a complete history, physical examination and review of all available clinical data the following is my assessment. This is a patient with multiple medical comorbidities and who is on chronic anticoagulation who presents with sepsis and a possible port site infection. Port will need to be excised in order to have source control of her sepsis. Due to the chronic anticoagulation the patient is very high risk for bleeding during the procedure. I explained to the patient that she is high risk of bleeding during and after the procedure, she has resolved persistent infection, has risk of needing additional interventions and she is agreeable with this and wishes to proceed. We will take the patient to the OR today for excision of the port. All other management per primary team. Coding Level of Care Code 39207 Diagnoses Postprocedural puncture site infection T81.49XA Sepsis A41.9
--- NOTE | 2023-10-15 11:27 | P.PN_ITS ---
Subjective 2 Subjective: Seen at bedside this morning, she complained of right upper chest pain at the site of Mediport but reports improved abdominal pain. She was found to have serosanguineous discharge at the Mediport site overnight and culture sent. Medications: Reviewed: Yes Vitals/I&O/Wt Last Vital Signs Temp 99.5 F 10/15/23 04:00 Pulse 72 10/15/23 09:00 Resp 25 H 10/15/23 09:00 BP 122/54 10/15/23 09:00 Pulse Ox 100 10/15/23 09:00 O2 Del Method Nasal Cannula 10/15/23 09:00 O2 Flow Rate 2 10/15/23 09:00 10/14/23 10/15/23 10/15/23 22:59 06:59 14:59 Intake Total 510.500 / 730.000 215.5 / 945.500 0 / 0 Output Total 250 / 600 300 / 900 Balance 260.500 / 130.000 -84.5 / 45.500 0 / 0 Weight last 48 hrs Weight 82 kg Weight 78.834 kg Weight 80.711 kg Weight 76.204 kg Physical Exam 2 Narrative: General: Patient is awake, alert and oriented x 3 There is erythema present at the Mediport and needle site in the infraclavicular region, with serosanguineous discharge present. Head: Normocephalic. Atraumatic. EOM intact. Neck: No JVD. Cardiovascular: RRR. No gallops. No murmurs. Lungs: Breath sounds diminished bilateral bases, no use of accessory muscles, no crackles or wheezes. On room air. Skin: No jaundice. No rashes. Abdomen: Normal bowel sounds, abdomen soft. Tenderness palpation all 4 quadrants. No guarding. Extremities: No cyanosis or clubbing. Musculoskeletal: No swollen or erythematous joints. Neurological: Moves all 4 extremities. No myoclonus. Urinary Catheter Management: Estes: Cath Placed During This Visit: yes Reason for Continuing Indwelling Catheter: Accurate Measurement of Urinary Output in Critically Ill Patients Urinary Catheter Date of Insertion: 10/14/23 Urinary Catheter Time of Insertion: 22:15 Data 10/15/23 04:00 10/15/23 04:00 Micro: Microbiology 10/13/23 23:14 Blood Culture - Preliminary Blood NEGATIVE TO DATE 10/13/23 23:10 Blood Culture - Preliminary Blood NEGATIVE TO DATE A&P Assessment and plan (1) Sepsis: Severe sepsis leukocytosis improving with WBCs 13.3 Source: Likely secondary to Mediport site infection Continue IV vancomycin and cefepime for now Follow-up surgery post removal of Mediport. Off Levophed, maintaining systolic blood pressure in 120s Continue telemetry monitoring Supportive care (2) BERNADETTE (acute kidney injury): BERNADETTE on CKD stage II, creatinine at 1.5 today from 1.9 Continue IV lactated Ringer at 50 MLS per hour Suspect secondary to sepsis Hold lisinopril and Bumex for tonight Strict I&O Daily weights Renally dose medications (3) Congestive heart failure: Heart failure with reduced ejection Status post IV fluid boluses in ED, she is very high risk for CHF exacerbation Continue beta srikanth Last 2D echo showed EF of 41%, with global hypokinesia Chest x-ray negative for any acute pathology Hold Bumex for tonight, reassess volume status and labs in AM Telemetry monitoring Qualifiers: Heart failure chronicity: acute on chronic Heart failure type: d iastolic Qualified Code(s): I50.33 - Acute on chronic diastolic (congestive) heart failure (4) Abdominal pain: Abdominal pain improving, ultrasound abdomen negative for any acute pathology Status post cholecystectomy earlier in the year (5) Recurrent UTI: Repeat UA consistent with UTI but improving as compared to admission. Will continue current antibiotics IV vancomycin and IV cefepime (6) HTN (hypertension): Hold lisinopril and Bumex due to soft blood pressure and BERNADETTE Qualifiers: Hypertension type: primary hypertension Qualified Code(s): I10 - Essential (primary) hypertension (7) CAD (coronary artery disease): Continue Plavix (8) Atrial fibrillation: Continue metoprolol for rate control Continue apixaban for stroke prophylaxis (9) Gout: Hold allopurinol for now Qualifiers: Gout site: ankle Gout etiology: due to renal impairment Chronicity: c hronic Laterality: unspecified laterality Presence of tophus: without tophus Qualified Code(s): 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 twice daily (11) Anxiety: Continue home Xanax Continue home SSRI Plan DVT prophylaxis: Apixaban CODE STATUS: Full code Attestations 2 Medical Necessity Statement*: Patient presents with multiple complaints, found to have severe sepsis with expected hospitalization to cross 2 midnights for IV antibiotics, cultures, serial exams, and supportive care. Time Spent in Patient Care: 20minutes Coding Level of Care Code Acute Code for Chg Fwd Diagnoses Sepsis A41.9 BERNADETTE (acute kidney injury) N17.9 Acute on chronic diastolic congestive heart failure I50.33 Heart failure chronicity: acute on chronic Heart failure type: diastolic Abdominal pain R10.9 Recurrent UTI N39.0 Primary hypertension I10 Hypertension type: primary hypertension CAD (coronary artery disease) I25.10 Atrial fibrillation I48.91 Chronic gout due to renal impairment involving ankle without tophus, unspecified laterality M1A.3790 Gout site: ankle Gout etiology: due to renal impairment Chronicity: chronic Laterality: unspecified laterality Presence of tophus: without tophus GERD (gastroesophageal reflux disease) K21.9 Anxiety F41.9 Time Spent (min) 20
[2023-10-15] MEDS: lactated ringers 1,000 ML 50 ML IV (12:36)
--- NOTE | 2023-10-15 13:57 | PC.NURSE ---
To OR at 1345 via bed by OR staff. Patient is AAOx4, GCS 15, VSS, 2 LNC.
[2023-10-15] MEDS: lidocaine-epi 1% 20 mL INJ INJECTION (14:10)
[2023-10-15] MEDS: BUPivacaine 0.25% INJ 10 mL INJECTION (14:10)
--- NOTE | 2023-10-15 14:31 | PM.OP ---
Operative Report Date of procedure: October 15, 2023 Pre-op diagnosis: Port site infection and sepsis Post-op diagnosis: Same Post-op findings: Area of the right chest port was noted to be erythematous, immediately upon entry of the skin moderate amount of seropurulent fluid draining. Cultures were taken. Procedure done: Excision of Port-A-Cath Specimens removed/disposition: Port-A-Cath and cultures Surgeon: Anthony Stoner MD Slubber Machine Operator: SEDRICK OR Staff Estimated blood loss: 10 Complications: none Brief History: 73-year-old female admitted with sepsis and noted to have discharged from a right chest port. After discussion of all risk and benefits as documented in my preop note we decided to proceed with excision of Port-A-Cath. Procedure: Patient was brought into the OR, she was placed in a supine position. Moderate anesthesia sedation was given. A timeout was conducted after the upper chest was prepped and draped in the usual sterile fashion. Local anesthesia was infiltrated. There was crusting of the rare to the previous surgical incision, this area was opened with a scalpel and upon entry immediate evacuation moderate amount of seropurulent fluid was noted, cultures were taken of this fluid. I then proceeded to circumferentially dissect the port from the anchor points to the soft tissue I did this with or Núñez scissor. The port and the catheter were then removed pressure was At the level of the insertion site in the subclavian vein to prevent bleeding. Some backbleeding was noted from the track of the catheter and therefore I used a [id number] 3-0 Vicryl to close the tract. Hemostasis was then verified. The wound was irrigated with saline. I then proceeded to pack the wound with healthy inch iodoform packing and a compressive dressing was applied. At the end of the procedure all counts were correct, the patient tolerated well the procedure and was transferred to the PACU in stable condition.
--- NOTE | 2023-10-15 14:50 | ANE.PACU2 ---
Inpatient post-anesthesia follow up: Airway intact: Yes Vital signs: Temperature 97.9 F Pulse Rate 70 Respiratory Rate 19 Blood Pressure 128/65 Pulse Oximetry 100 Oxygen Delivery Me thod [ Nasal Cannula Current Rate & Del yocasta] Oxygen Delivery Me thod Nasal Cannula Oxygen Flow Rate [ Current Rate 2 & Delivery] Oxygen Flow Rate 2 Fraction of Inspir ed Oxygen Hydration adequate: Yes Nausea and vomiting: No Pain level: 1 Mental status: Baseline
[2023-10-15 15:20] LABS: Methicillin-Resist S.aureu PCR NOT DETECTED (NOT DETECTED)
[2023-10-15] MEDS: cefepime 1,000 MG in sodium chloride 0.9% (plus) 50 ML 100 MG IV (15:29)
[2023-10-15] MEDS: acetaminophen 325 mg Tablet 650 MG PO ×2 (15:30→22:32)
[2023-10-15] MEDS: clopidogrel 75 mg Tablet PO (21:01)
[2023-10-15] MEDS: ALPRAZolam 0.5 mg Tablet PO (22:32)
[2023-10-16] VITALS (23 sets, daily range): BP systolic 94–144; BP diastolic 47–90; PULSE 61–74; RESP 14–34; TEMP 36.4–36.6; O2SAT 93–100
[2023-10-16] MEDS: vancomycin 1,250 MG/250 ML PIGGYBACK 250 MG IV ×2 (01:43→20:39)
[2023-10-16] MEDS: pantoprazole 40 mg SDV IVP ×2 (03:09→15:40)
[2023-10-16] MEDS: sertraline 100 mg Tablet PO (05:01)
[2023-10-16] MEDS: atorvastatin 40 mg Tablet PO (05:01)
[2023-10-16 05:50] LABS: Basophils % 0.2 %; Eosinophils # 0.1 10^3/uL (0.0-0.8); Eosinophils % 1.4 %; Hematocrit 32.4 % (36-47); Lymphocytes # 0.5 10^3/uL (0.8-4.8); Lymphocytes % 5.5 %; Mean Corpuscular HGB Conc 32.7 g/dL (30-55); Mean Corpuscular Hemoglobin 31.5 pg (27-33); Mean Corpuscular Volume 96.1 fl (85-98); Monocytes # 0.8 10^3/uL (0.2-0.9); Monocytes % 8.8 %; Neutrophils # 7.31 10^3/uL (1.8-7.7); Neutrophils % 83.5 %; Nucleated Red Blood Cells % 0 %; Platelet Count 220 10^3/cmm (157-399); Red Blood Count 3.37 10^6/uL (3.85-5.65); Red Cell Distribution Width 17.4 % (12.1-15.1); White Blood Count 8.75 10^3/uL (3.29-11.43)
[2023-10-16] MEDS: lactated ringers 1,000 ML 50 ML IV (06:37)
[2023-10-16 06:40] LABS: Alanine Aminotransferase 12 U/L (0-33); Albumin Level 2.8 g/dL (3.5-5.2); Alkaline Phosphatase 61 U/L (35-105); Anion Gap 15.3 (5-19); Aspartate Amino Transferase 16 U/L (0-32); Blood Urea Nitrogen 19 mg/dL (8-23); Calcium 7.7 mg/dL (8.5-10.5); Carbon Dioxide 27 mmol/L (22-29); Chloride 101 mmol/L (98-107); Glucose 113 mg/dL (65-115); Osmolality Calculated 293 mOsm/kg (285-295); Potassium 3.3 mmol/L (3.5-5.1); Sodium 140 mmol/L (136-145); Total Protein 5.8 g/dL (6.6-8.7)
[2023-10-16 06:46] LABS: Creatinine Clr Calc Pharmacy 41.4811
[2023-10-16] MEDS: apixaban 5 mg Tablet PO ×2 (08:18→17:06)
--- NOTE | 2023-10-16 10:20 | P.PN_ITS ---
Subjective 2 Subjective: No acute overnight events noted. Seen at bedside today, she looks more comfortable and awake. Denies any complaint of pain but was trying to scratch at the site of Mediport. She is s/p Mediport removal yesterday. Medications: Reviewed: Yes Vitals/I&O/Wt Last Vital Signs Temp 97.6 F 10/16/23 08:00 Pulse 70 10/16/23 08:00 Resp 27 H 10/16/23 08:00 BP 117/57 10/16/23 08:00 Pulse Ox 99 10/16/23 08:00 O2 Del Method Nasal Cannula 10/16/23 08:00 O2 Flow Rate 2 10/16/23 08:00 10/15/23 10/16/23 10/16/23 22:59 06:59 14:59 Intake Total 710 / 1710 1240.833 / 2950.833 50 / 50 Output Total 1175 / 1175 400 / 1575 Balance -465 / 535 840.833 / 1375.833 50 / 50 Weight last 48 hrs Weight 80 kg Weight 82 kg Physical Exam 2 Narrative: General: Patient is awake, alert and oriented x 3 She is s/p Mediport removal and dressing present in the infraclavicular region Head: Normocephalic. Atraumatic. EOM intact. Neck: No JVD. Cardiovascular: RRR. No gallops. No murmurs. Lungs: Breath sounds diminished bilateral bases, no use of accessory muscles, no crackles or wheezes. On room air. Skin: No jaundice. No rashes. Abdomen: Normal bowel sounds, abdomen soft. Tenderness palpation all 4 quadrants. No guarding. Extremities: No cyanosis or clubbing. Musculoskeletal: No swollen or erythematous joints. Neurological: Moves all 4 extremities. No myoclonus. Urinary Catheter Management: Estes: Cath Placed During This Visit: yes Reason for Continuing Indwelling Catheter: Accurate Measurement of Urinary Output in Critically Ill Patients Urinary Catheter Date of Insertion: 10/14/23 Urinary Catheter Time of Insertion: 22:15 Data 10/16/23 04:03 10/16/23 06:15 Micro: Microbiology 10/15/23 14:20 Gram Stain - Final Other Source A&P Assessment and plan (1) Congestive heart failure: Qualifiers: Heart failure chronicity: acute on chronic Heart failure type: d iastolic Qualified Code(s): I50.33 - Acute on chronic diastolic (congestive) heart failure (2) Abdominal pain: (3) Recurrent UTI: (4) HTN (hypertension): Qualifiers: Hypertension type: primary hypertension Qualified Code(s): I10 - Essential (primary) hypertension (5) CAD (coronary artery disease): (6) Atrial fibrillation: (7) Gout: Qualifiers: Gout site: ankle Gout etiology: due to renal impairment Chronicity: c hronic Laterality: unspecified laterality Presence of tophus: without tophus Qualified Code(s): 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, unspecified ankle and foot, without tophus (tophi) (8) GERD (gastroesophageal reflux disease): (9) Anxiety: (10) Sepsis: Qualifiers: Acute renal failure type: with other specified pathological lesion S epsis acute organ dysfunction status: with acute organ dysfunction Sepsis type: sepsis due to unspecified organism Severe sepsis acute organ dysfunction type: acute renal failure Severe sepsis shock status: without septic shock Qualified Code(s): A41.9 - Sepsis, unspecified organism; R65.20 - Severe sepsis without septic shock; N17.8 - Other acute kidney failure (11) Acute on chronic renal insufficiency: Plan (1) Sepsis: Severe sepsis leukocytosis resolved Clinically improving and looks much better as compared to admission Source: Likely secondary to Mediport site infection s/p Mediport removal Continue IV vancomycin and cefepime for now Off Levophed, maintaining systolic blood pressure in 120s Continue telemetry monitoring Supportive care Follow-up wound culture, catheter tip culture. Blood cultures are negative so far (2) BERNADETTE (acute kidney injury): BERNADETTE on CKD stage II, creatinine improving at 1.3 today from 1.5 Continue IV lactated Ringer at 50 MLS per hour Suspect secondary to sepsis Hold lisinopril and Bumex for tonight Strict I&O Daily weights Renally dose medications (3) Congestive heart failure: Heart failure with reduced ejection Status post IV fluid boluses in ED, she is very high risk for CHF exacerbation Continue beta srikanth Last 2D echo showed EF of 41%, with global hypokinesia Chest x-ray negative for any acute pathology Hold Bumex Telemetry monitoring (4) Abdominal pain: Resolved (5) Recurrent UTI: Repeat UA consistent with UTI but improving as compared to admission. Will continue current antibiotics IV vancomycin and IV cefepime (6) HTN (hypertension): Hold lisinopril and Bumex due to soft blood pressure and BERNADETTE (7) CAD (coronary artery disease): Continue Plavix (8) Atrial fibrillation: Continue metoprolol for rate control Continue apixaban for stroke prophylaxis (9) Gout: Hold allopurinol for now (10) GERD (gastroesophageal reflux disease): Continue Protonix 40 mg IV. twice daily (11) Anxiety: Continue home Xanax Continue home SSRI DVT prophylaxis: Apixaban CODE STATUS: Full code Attestations 2 Medical Necessity Statement*: Patient presents with multiple complaints, found to have severe sepsis improving but with expected hospitalization to cross 2 midnights for IV antibiotics, cultures, serial exams, and supportive care. Time Spent in Patient Care: 15minutes Coding Level of Care Code Acute Code for Chg Fwd Diagnoses Acute on chronic diastolic congestive heart failure I50.33 Heart failure chronicity: acute on chronic Heart failure type: diastolic Abdominal pain R10.9 Recurrent UTI N39.0 Primary hypertension I10 Hypertension type: primary hypertension CAD (coronary artery disease) I25.10 Atrial fibrillation I48.91 Chronic gout due to renal impairment involving ankle without tophus, unspecified laterality M1A.3790 Gout site: ankle Gout etiology: due to renal impairment Chronicity: chronic Laterality: unspecified laterality Presence of tophus: without tophus GERD (gastroesophageal reflux disease) K21.9 Anxiety F41.9 Sepsis A41.9; R65.20; N17.8 Acute renal failure type: with other specified pathological lesion Sepsis acute organ dysfunction status: with acute organ dysfunction Sepsis type: sepsis due to unspecified organism Severe sepsis acute organ dysfunction type: acute renal failure Severe sepsis shock status: without septic shock Acute on chronic renal insufficiency N28.9; N18.9 Time Spent (min) 15
--- NOTE | 2023-10-16 10:59 | P.PN_ITS ---
Subjective 2 Subjective: Postoperative day 1 status post excision of Port-A-Cath. Patient doing much better this morning, mental status has significantly improved, pain on the right upper chest has decreased. No other significant findings. Vitals/I&O/Wt Last Vital Signs Temp 97.6 F 10/16/23 08:00 Pulse 70 10/16/23 08:00 Resp 27 H 10/16/23 08:00 BP 117/57 10/16/23 08:00 Pulse Ox 99 10/16/23 08:00 O2 Del Method Nasal Cannula 10/16/23 08:00 O2 Flow Rate 2 10/16/23 08:00 10/15/23 10/16/23 10/16/23 22:59 06:59 14:59 Intake Total 710 / 1710 1240.833 / 2950.833 50 / 50 Output Total 1175 / 1175 400 / 1575 Balance -465 / 535 840.833 / 1375.833 50 / 50 Weight last 48 hrs Weight 176 lb 5.917 oz Weight 180 lb 12.465 oz Physical Exam 2 Chest: OTHER: Packing was removed from the surgical incision, no active bleeding noted, no purulence noted at this time packing was replaced. Urinary Catheter Management: Estes: Cath Placed During This Visit: yes Reason for Continuing Indwelling Catheter: Accurate Measurement of Urinary Output in Critically Ill Patients Urinary Catheter Date of Insertion: 10/14/23 Urinary Catheter Time of Insertion: 22:15 Data 10/16/23 04:03 10/16/23 06:15 Micro: Microbiology 10/15/23 14:20 Gram Stain - Final Other Source A&P Assessment and plan (1) Sepsis: Qualifiers: Acute renal failure type: with other specified pathological lesion S epsis acute organ dysfunction status: with acute organ dysfunction Sepsis type: sepsis due to unspecified organism Severe sepsis acute organ dysfunction type: acute renal failure Severe sepsis shock status: without septic shock Qualified Code(s): A41.9 - Sepsis, unspecified organism; R65.20 - Severe sepsis without septic shock; N17.8 - Other acute kidney failure (2) Postprocedural puncture site infection: Plan Patient is doing very well after excision of Port-A-Cath. Mental status has improved, white count has normalized, no further purulence or evidence of infection at the surgical site. We will continue with daily packing and once patient is discharged, she will require follow-up at the wound care clinic or your urgent care for daily packing. Please call anticoagulation until tomorrow as patient is still very high risk for bleeding. No other surgical intervention is indicated at this time. Attestations 2 Medical Necessity Statement*: Per medical team Coding Level of Care Code Acute Code for Chg Fwd Diagnoses Sepsis A41.9; R65.20; N17.8 Acute renal failure type: with other specified pathological lesion Sepsis acute organ dysfunction status: with acute organ dysfunction Sepsis type: sepsis due to unspecified organism Severe sepsis acute organ dysfunction type: acute renal failure Severe sepsis shock status: without septic shock Postprocedural puncture site infection T81.49XA
[2023-10-16] MEDS: cefepime 1,000 MG in sodium chloride 0.9% (plus) 100 ML 200 MG IV (15:40)
[2023-10-16] MEDS: acetaminophen 325 mg Tablet 650 MG PO (17:06)
[2023-10-16] MEDS: clopidogrel 75 mg Tablet PO (20:39)
[2023-10-16] MEDS: ALPRAZolam 0.5 mg Tablet PO (20:44)
[2023-10-17] VITALS (20 sets, daily range): BP systolic 116–146; BP diastolic 53–95; PULSE 69–72; RESP 13–32; TEMP 36.4–36.7; O2SAT 88–99
[2023-10-17] MEDS: lactated ringers 1,000 ML 50 ML IV ×2 (03:34→22:26)
[2023-10-17] MEDS: pantoprazole 40 mg SDV IVP ×2 (04:58→15:55)
[2023-10-17] MEDS: atorvastatin 40 mg Tablet PO (05:02)
[2023-10-17] MEDS: sertraline 100 mg Tablet PO (05:02)
[2023-10-17 07:34] LABS: Basophils % 0.2 %; Eosinophils # 0.1 10^3/uL (0.0-0.8); Eosinophils % 0.6 %; Hematocrit 34.2 % (36-47); Lymphocytes # 0.8 10^3/uL (0.8-4.8); Lymphocytes % 7.3 %; Mean Corpuscular HGB Conc 31.3 g/dL (30-55); Mean Corpuscular Hemoglobin 30.4 pg (27-33); Mean Corpuscular Volume 97.2 fl (85-98); Monocytes % 9.5 %; Neutrophils # 8.69 10^3/uL (1.8-7.7); Neutrophils % 81.4 %; Nucleated Red Blood Cells % 0 %; Platelet Count 91 10^3/cmm (157-399); Red Blood Count 3.52 10^6/uL (3.85-5.65); Red Cell Distribution Width 17.3 % (12.1-15.1); White Blood Count 10.67 10^3/uL (3.29-11.43)
[2023-10-17 07:54] LABS: Anion Gap 15.3 (5-19); Blood Urea Nitrogen 23 mg/dL (8-23); Calcium 8.4 mg/dL (8.5-10.5); Carbon Dioxide 25 mmol/L (22-29); Chloride 97 mmol/L (98-107); Creatinine Clr Calc Pharmacy 69.2396; Glucose 86 mg/dL (65-115); Osmolality Calculated 281 mOsm/kg (285-295); Potassium 3.3 mmol/L (3.5-5.1); Sodium 134 mmol/L (136-145)
[2023-10-17] MEDS: apixaban 5 mg Tablet PO ×2 (08:18→17:16)
--- NOTE | 2023-10-17 09:35 | PC.CHAP ---
Pastoral Care Encounter/Spiritual Assessment Type of Contact [] Declined supervisor fish bait processing visit [] Patient/Family/Request visit [] Outpatient visit [] Follow-up visit [] Physician referral [] Code/Alert [x] Routine visit [] Staff referral [] Actively dying [] Patient sleeping [] Family support [] [] Out of room [] Palliative care [] [] Receiving care in room [] Pre-surgical visit [] Trauma [] Long length of stay [x] ICU visit [] Other: Relational/Emotional Strength [] Patient feels connected with others/family/visitors/staff [] Distress [] Loneliness/isolation [] Abandonment Spirituality of Patient [] Person of Sailaja [] Attends Buddhism of their Sailaja [] Believes in Prayer [] Reads Bible or Restorationism materials [] There are Spiritual issues to be addressed Client Finance Analyst Interventions [x] Prayer [] Active listening [] Non-anxious presence [] Spiritual/emotional support [] Crisis/trauma care [] Spiritual counseling [] Bereavement support [] Provided bereavement packet [] Provided Bible/devotional materials [] Provided toy/stuffed animal, coloring book to patient or family member [] Provided Communion [] Anointing/[place] [] Salvation [] Completed spiritual assessment [] Other: Impact on Illness or Injury [] Angry [] Fearful [] Anxious [] Often cries [] Exhaustion [] Unable to work [] Unable to attend baptist [] Unable to walk/stand [] Unable to read [] Unable to drive [] Unable to eat/drink [] Unable to sleep [] Unable to be with family [] Patient intubated [] Other: Summary patient resting... family present Time spent with patient
--- NOTE | 2023-10-17 10:32 | P.PN_ITS ---
Subjective 2 Subjective: She is s/p day 2 of Mediport removal. Patient doing much better this morning, mental status has significantly improved, pain on the right upper chest has decreased. States her abdominal pain has resolved no other significant findings. Medications: Reviewed: Yes Vitals/I&O/Wt Last Vital Signs Temp 98.1 F 10/17/23 07:00 Pulse 70 10/17/23 08:00 Resp 20 H 10/17/23 08:00 BP 134/76 10/17/23 08:00 Pulse Ox 99 10/17/23 08:00 O2 Del Method Nasal Cannula 10/17/23 07:40 O2 Flow Rate 2 10/17/23 07:40 10/16/23 10/17/23 10/17/23 22:59 06:59 14:59 Intake Total 650 / 750 1350 / 2100 200 / 200 Output Total 1000 / 1700 800 / 2500 Balance -350 / -950 550 / -400 200 / 200 Weight last 48 hrs Weight 84.5 kg Weight 80 kg Physical Exam 2 Narrative: General: Patient is awake, alert and oriented x 3 She is s/p Mediport removal and dressing present in the infraclavicular region Head: Normocephalic. Atraumatic. EOM intact. Neck: No JVD. Cardiovascular: RRR. No gallops. No murmurs. Lungs: Breath sounds diminished bilateral bases, no use of accessory muscles, no crackles or wheezes. On room air. Skin: No jaundice. No rashes. Abdomen: Normal bowel sounds, abdomen soft, nontender nondistended. No guarding. Extremities: No cyanosis or clubbing. Musculoskeletal: No swollen or erythematous joints. Neurological: Moves all 4 extremities. No myoclonus. Urinary Catheter Management: Estes: Cath Placed During This Visit: yes Reason for Continuing Indwelling Catheter: Accurate Measurement of Urinary Output in Critically Ill Patients Urinary Catheter Date of Insertion: 10/14/23 Urinary Catheter Time of Insertion: 22:15 Data 10/17/23 07:22 10/17/23 07:22 Micro: Microbiology 10/13/23 23:14 Blood Culture - Preliminary Blood 10/13/23 23:10 Blood Culture - Preliminary Blood Staphylococcus aureus 10/15/23 14:20 Gram Stain - Final Other Source Anaerobic Culture - Preliminary Wound Culture - Preliminary Coag positive Staphylococcus 10/15/23 14:20 Catheter Tip Culture - Preliminary Other Source Coag positive Staphylococcus 10/15/23 03:05 Wound Culture - Preliminary Chest Coag positive Staphylococcus A&P Assessment and plan (1) Congestive heart failure: Qualifiers: Heart failure chronicity: acute on chronic Heart failure type: d iastolic Qualified Code(s): I50.33 - Acute on chronic diastolic (congestive) heart failure (2) Abdominal pain: (3) Recurrent UTI: (4) HTN (hypertension): Qualifiers: Hypertension type: primary hypertension Qualified Code(s): I10 - Essential (primary) hypertension (5) CAD (coronary artery disease): (6) Atrial fibrillation: (7) Gout: Qualifiers: Gout site: ankle Gout etiology: due to renal impairment Chronicity: c hronic Laterality: unspecified laterality Presence of tophus: without tophus Qualified Code(s): 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, unspecified ankle and foot, without tophus (tophi) (8) GERD (gastroesophageal reflux disease): (9) Anxiety: (10) Sepsis: Qualifiers: Acute renal failure type: with other specified pathological lesion S epsis acute organ dysfunction status: with acute organ dysfunction Sepsis type: sepsis due to unspecified organism Severe sepsis acute organ dysfunction type: acute renal failure Severe sepsis shock status: without septic shock Qualified Code(s): A41.9 - Sepsis, unspecified organism; R65.20 - Severe sepsis without septic shock; N17.8 - Other acute kidney failure (11) Acute on chronic renal insufficiency: Plan (1) Sepsis: Severe sepsis leukocytosis resolved Clinically improving and looks much better as compared to admission Source: Likely secondary to Mediport site infection s/p Mediport removal Continue IV vancomycin and cefepime for now Off Levophed, maintaining systolic blood pressure in 120s Supportive care Follow-up wound culture, catheter tip culture and blood culture showed coagulase positive staph Will continue with IV vancomycin and cefepime for now given her septic shock on admission, will follow-up final cultures and sensitivities and adjust antibiotics accordingly (2) BERNADETTE (acute kidney injury): BERNADETTE on CKD stage II, creatinine improving at 1.3 today from 1.5 Continue IV lactated Ringer at 50 MLS per hour Suspect secondary to sepsis Hold lisinopril and Bumex for tonight Strict I&O Daily weights Renally dose medications (3) Congestive heart failure: Heart failure with reduced ejection Status post IV fluid boluses in ED, she is very high risk for CHF exacerbation Continue beta srikanth Last 2D echo showed EF of 41%, with global hypokinesia Chest x-ray negative for any acute pathology Hold Bumex (4) Abdominal pain: Resolved (5) Recurrent UTI: Repeat UA consistent with UTI but improving as compared to admission. Will continue current antibiotics IV vancomycin and IV cefepime (6) HTN (hypertension): Hold lisinopril and Bumex due to soft blood pressure and BERNADETTE (7) CAD (coronary artery disease): Continue Plavix (8) Atrial fibrillation: Continue metoprolol for rate control Continue apixaban for stroke prophylaxis (9) Gout: Hold allopurinol for now (10) GERD (gastroesophageal reflux disease): Continue Protonix 40 mg IV. twice daily (11) Anxiety: Continue home Xanax Continue home SSRI Cardiac diet DVT prophylaxis: Apixaban CODE STATUS: Full code Attestations 2 Medical Necessity Statement*: Patient presents with multiple complaints, found to have severe sepsis improving but with expected hospitalization to cross 2 midnights for IV antibiotics, cultures, serial exams, and supportive care. Time Spent in Patient Care: 15minutes Coding Level of Care Code Acute Code for Chg Fwd Diagnoses Acute on chronic diastolic congestive heart failure I50.33 Heart failure chronicity: acute on chronic Heart failure type: diastolic Abdominal pain R10.9 Recurrent UTI N39.0 Primary hypertension I10 Hypertension type: primary hypertension CAD (coronary artery disease) I25.10 Atrial fibrillation I48.91 Chronic gout due to renal impairment involving ankle without tophus, unspecified laterality M1A.3790 Gout site: ankle Gout etiology: due to renal impairment Chronicity: chronic Laterality: unspecified laterality Presence of tophus: without tophus GERD (gastroesophageal reflux disease) K21.9 Anxiety F41.9 Sepsis A41.9; R65.20; N17.8 Acute renal failure type: with other specified pathological lesion Sepsis acute organ dysfunction status: with acute organ dysfunction Sepsis type: sepsis due to unspecified organism Severe sepsis acute organ dysfunction type: acute renal failure Severe sepsis shock status: without septic shock Acute on chronic renal insufficiency N28.9; N18.9 Time Spent (min) 15
[2023-10-17] MEDS: potassium chloride ER 20 mEq Tablet 40 MEQ PO ×2 (11:46→16:04)
[2023-10-17] MEDS: cefepime 1,000 MG in sodium chloride 0.9% (plus) 100 ML 200 MG IV ×2 (11:46→22:26)
--- NOTE | 2023-10-17 12:09 | PC.SOCIAL ---
IMM Update Pg. 2 of IMM updated and reviewed with patient and her . Copy provided.
--- NOTE | 2023-10-17 12:18 | P.PN_ITS ---
Subjective 2 Subjective: She is s/p day 3 of Mediport removal. Patient doing much better this morning, mental status has significantly improved, pain on the right upper chest has decreased. Medications: Reviewed: Yes Vitals/I&O/Wt Last Vital Signs Temp 98.1 F 10/17/23 07:00 Pulse 70 10/17/23 08:00 Resp 20 H 10/17/23 08:00 BP 134/76 10/17/23 08:00 Pulse Ox 99 10/17/23 08:00 O2 Del Method Nasal Cannula 10/17/23 07:40 O2 Flow Rate 2 10/17/23 07:40 10/16/23 10/17/23 10/17/23 22:59 06:59 14:59 Intake Total 650 / 750 1350 / 2100 200 / 200 Output Total 1000 / 1700 800 / 2500 Balance -350 / -950 550 / -400 200 / 200 Weight last 48 hrs Weight 186 lb 4.65 oz Weight 176 lb 5.917 oz Physical Exam 2 Chest: OTHER: Packing was removed from the wound no evidence of active bleeding, no evidence of purulence at this time there is minimal amount of stopping the needle insertion site in the supraclavicular area some Betadine was placed in this level. Packing was replaced. Urinary Catheter Management: Estes: Cath Placed During This Visit: yes Reason for Continuing Indwelling Catheter: Accurate Measurement of Urinary Output in Critically Ill Patients Urinary Catheter Date of Insertion: 10/14/23 Urinary Catheter Time of Insertion: 22:15 Data 10/17/23 07:22 10/17/23 07:22 Micro: Microbiology 10/15/23 14:20 Catheter Tip Culture - Final Other Source Staphylococcus aureus 10/13/23 23:14 Blood Culture - Preliminary Blood 10/13/23 23:10 Blood Culture - Preliminary Blood Staphylococcus aureus 10/15/23 14:20 Gram Stain - Final Other Source Anaerobic Culture - Preliminary Wound Culture - Preliminary Coag positive Staphylococcus 10/15/23 03:05 Wound Culture - Preliminary Chest Coag positive Staphylococcus A&P Assessment and plan (1) Sepsis: Qualifiers: Acute renal failure type: with other specified pathological lesion S epsis acute organ dysfunction status: with acute organ dysfunction Sepsis type: sepsis due to unspecified organism Severe sepsis acute organ dysfunction type: acute renal failure Severe sepsis shock status: without septic shock Qualified Code(s): A41.9 - Sepsis, unspecified organism; R65.20 - Severe sepsis without septic shock; N17.8 - Other acute kidney failure (2) Postprocedural puncture site infection: Plan Adequate progression after excision of Mediport. Patient will require daily wound care. I will continue to the wound care while patient is in the hospital when she transitions to a rehab facility she can have once a day packing placement by nursing staff. Attestations 2 Medical Necessity Statement*: Per medical team Coding Level of Care Code Acute Code for [facility] Fwd Diagnoses Sepsis A41.9; R65.20; N17.8 Acute renal failure type: with other specified pathological lesion Sepsis acute organ dysfunction status: with acute organ dysfunction Sepsis type: sepsis due to unspecified organism Severe sepsis acute organ dysfunction type: acute renal failure Severe sepsis shock status: without septic shock Postprocedural puncture site infection T81.49XA
[2023-10-17] MEDS: vancomycin 1,250 MG/250 ML PIGGYBACK 250 MG IV (14:07)
--- NOTE | 2023-10-17 17:17 | PC.NURSE ---
Patient transferred upstairs to [facility] at 1717. Report called to Dayne WANG
[2023-10-17] MEDS: acetaminophen 325 mg Tablet 650 MG PO (18:06)
[2023-10-17] MEDS: ALPRAZolam 0.5 mg Tablet PO (22:26)
[2023-10-17] MEDS: clopidogrel 75 mg Tablet PO (22:26)
[2023-10-18] VITALS (10 sets, daily range): BP systolic 123–150; BP diastolic 64–77; PULSE 69–76; RESP 16–21; TEMP 36.4–37.2; O2SAT 94–97
--- NOTE | 2023-10-18 03:28 | PC.NURSE ---
Addendum entered by Cheri Pool RN 10/18/23 04:36: Patient also had nosebleed, however this resolved quickly without intervention. Addendum entered by Cheri Pool RN 10/18/23 03:45: Dr. Marquis ordered to hold Eliquis. Original Note: Dr. Marquis notified of the following: Patient had bloody urine in her crespo upon shift change/bedside report. The day shift nurse said that it was a new finding and that the catheter might have gotten pulled on. I emptied to crespo to see if the urine new urine coming through it was any clearer, but it is still bloody. She is on PO Eliquis and PO Plavix. Her vital signs are stable.
--- NOTE | 2023-10-18 03:35 | PC.NURSE ---
Upon shift assessment, I noticed that the patient had difficulty turning her head to the right. Patient states that her neck has been stiff since she got sick.
[2023-10-18] MEDS: pantoprazole 40 mg SDV IVP (05:46)
[2023-10-18] MEDS: atorvastatin 40 mg Tablet PO (05:46)
[2023-10-18] MEDS: sertraline 100 mg Tablet PO (05:46)
[2023-10-18] MEDS: acetaminophen 325 mg Tablet 650 MG PO (05:49)
[2023-10-18] MEDS: vancomycin 1,000 MG in sodium chloride 0.9% 250 ML 250 MG IV ×2 (08:20→20:19)
[2023-10-18 10:21] LABS: Basophils % 0.2 %; Eosinophils # 0.1 10^3/uL (0.0-0.8); Eosinophils % 0.4 %; Hematocrit 32.6 % (36-47); Lymphocytes # 1.3 10^3/uL (0.8-4.8); Lymphocytes % 10.1 %; Mean Corpuscular HGB Conc 32.5 g/dL (30-55); Mean Corpuscular Hemoglobin 30.6 pg (27-33); Mean Corpuscular Volume 94.2 fl (85-98); Mean Platelet Volume 13.2 fL (7.4-10.4); Monocytes # 1.1 10^3/uL (0.2-0.9); Monocytes % 8.5 %; Neutrophils # 9.68 10^3/uL (1.8-7.7); Neutrophils % 77.1 %; Nucleated Red Blood Cells % 0 %; Platelet Count 93 10^3/cmm (157-399); Red Blood Count 3.46 10^6/uL (3.85-5.65); Red Cell Distribution Width 17.2 % (12.1-15.1); White Blood Count 12.55 10^3/uL (3.29-11.43)
[2023-10-18 10:36] LABS: Anion Gap 15.3 (5-19); Blood Urea Nitrogen 20 mg/dL (8-23); Calcium 8.7 mg/dL (8.5-10.5); Carbon Dioxide 23 mmol/L (22-29); Chloride 97 mmol/L (98-107); Creatinine Clr Calc Pharmacy 70.4606; Glucose 104 mg/dL (65-115); Osmolality Calculated 275 mOsm/kg (285-295); Potassium 4.3 mmol/L (3.5-5.1); Sodium 131 mmol/L (136-145)
[2023-10-18] MEDS: FUROsemide 10 mg/mL SDV 4mL 40 MG IVP (10:52)
--- NOTE | 2023-10-18 12:19 | P.PN_ITS ---
Subjective 2 Subjective: No acute overnight events noted. She has been hemodynamically stable and afebrile, transferred to floor for further care. She complained of generalized body ache and back pain and was unable to participate with PT. Vitals/I&O/Wt Last Vital Signs Temp 97.5 F L 10/18/23 11:27 Pulse 70 10/18/23 11:27 Resp 17 10/18/23 11:27 BP 147/68 10/18/23 11:27 Pulse Ox 96 10/18/23 11:27 O2 Del Method Room Air 10/18/23 11:27 O2 Flow Rate 2 10/17/23 07:40 10/17/23 10/18/23 10/18/23 22:59 06:59 14:59 Intake Total 1993.333 / 2893.333 150 / 3043.333 695 / 695 Output Total 950 / 950 450 / 1400 Balance 1043.333 / 1943.333 -300 / 1643.333 695 / 695 Weight last 48 hrs Weight 87.498 kg Weight 84.5 kg Physical Exam 2 Narrative: General: Patient is awake, alert and oriented x 3 She is s/p Mediport removal and dressing present in the infraclavicular region, no new discharge or erythema noted Head: Normocephalic. Atraumatic. EOM intact. Neck: No JVD. Cardiovascular: RRR. No gallops. No murmurs. Lungs: Breath sounds diminished bilateral bases, no use of accessory muscles, no crackles or wheezes. On room air. Skin: No jaundice. No rashes. Abdomen: Normal bowel sounds, abdomen soft, nontender nondistended. No guarding. Extremities: No cyanosis or clubbing. Musculoskeletal: No swollen or erythematous joints. Neurological: Moves all 4 extremities. No myoclonus. Urinary Catheter Management: Estes: Cath Placed During This Visit: yes Reason for Continuing Indwelling Catheter: Accurate Measurement of Urinary Output in Critically Ill Patients Urinary Catheter Date of Insertion: 10/14/23 Urinary Catheter Time of Insertion: 22:15 Data 10/18/23 09:59 10/18/23 09:59 Micro: Microbiology 10/13/23 23:14 Blood Culture - Final Blood Staphylococcus aureus 10/13/23 23:10 Blood Culture - Final Blood Staphylococcus aureus 10/15/23 14:20 Gram Stain - Final Other Source Anaerobic Culture - Preliminary Wound Culture - Final Staphylococcus aureus 10/15/23 03:05 Wound Culture - Final Chest Staphylococcus aureus 10/15/23 14:20 Catheter Tip Culture - Final Other Source Staphylococcus aureus A&P Assessment and plan (1) Congestive heart failure: Qualifiers: Heart failure chronicity: acute on chronic Heart failure type: d iastolic Qualified Code(s): I50.33 - Acute on chronic diastolic (congestive) heart failure (2) Abdominal pain: (3) Recurrent UTI: (4) HTN (hypertension): Qualifiers: Hypertension type: primary hypertension Qualified Code(s): I10 - Essential (primary) hypertension (5) CAD (coronary artery disease): (6) Atrial fibrillation: (7) Gout: Qualifiers: Gout site: ankle Gout etiology: due to renal impairment Chronicity: c hronic Laterality: unspecified laterality Presence of tophus: without tophus Qualified Code(s): 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, unspecified ankle and foot, without tophus (tophi) (8) GERD (gastroesophageal reflux disease): (9) Anxiety: (10) Sepsis: Qualifiers: Acute renal failure type: with other specified pathological lesion S epsis acute organ dysfunction status: with acute organ dysfunction Sepsis type: sepsis due to unspecified organism Severe sepsis acute organ dysfunction type: acute renal failure Severe sepsis shock status: without septic shock Qualified Code(s): A41.9 - Sepsis, unspecified organism; R65.20 - Severe sepsis without septic shock; N17.8 - Other acute kidney failure (11) Acute on chronic renal insufficiency: Plan => New onset thrombocytopenia-likely thought to be due to sepsis initially but platelets trending down to 91 today. She is not on any heparin like products. Will discontinue IV Protonix for now Check CBC in a.m. (1) Sepsis: Severe sepsis leukocytosis resolved Clinically improving and looks much better as compared to admission Source: Likely secondary to Mediport site infection s/p Mediport removal Continue IV vancomycin since blood cultures, catheter report culture and wound culture showed coagulase positive Staph aureus Off Levophed, maintaining systolic blood pressure in 120s Supportive care and wound care (2) BERNADETTE (acute kidney injury): BERNADETTE on CKD stage II, creatinine 0.5 today Discontinue lactated Ringer (3) Congestive heart failure: Heart failure with reduced ejection Status post IV fluid boluses in ED, she is very high risk for CHF exacerbation Continue beta srikanth Last 2D echo showed EF of 41%, with global hypokinesia Will resume home dose of Bumex (4) HTN (hypertension): Hold lisinopril and Bumex due to soft blood pressure and BERNADETTE (5) CAD (coronary artery disease): Continue Plavix (6) Atrial fibrillation: Continue metoprolol for rate control Continue apixaban for stroke prophylaxis (7) Gout: Hold allopurinol for now (8) GERD (gastroesophageal reflux disease): Will do Maalox 30 mL every 6 hours as needed (9) Anxiety: Continue home Xanax Continue home SSRI Cardiac diet DVT prophylaxis: Apixaban CODE STATUS: Full code Attestations 2 Medical Necessity Statement*: Patient presents with multiple complaints, found to have severe sepsis improving but with expected hospitalization to cross 2 midnights for IV antibiotics, cultures, serial exams, and supportive care. Sepsis resolving but blood cultures wound, wound cultures, catheter tip cultures came positive for coagulase positive Staph aureus and antibiotics changed to IV vancomycin 1 g every 12 hours Time Spent in Patient Care: 15minutes Coding Level of Care Code Acute Code for Chg Fwd Diagnoses Acute on chronic diastolic congestive heart failure I50.33 Heart failure chronicity: acute on chronic Heart failure type: diastolic Abdominal pain R10.9 Recurrent UTI N39.0 Primary hypertension I10 Hypertension type: primary hypertension CAD (coronary artery disease) I25.10 Atrial fibrillation I48.91 Chronic gout due to renal impairment involving ankle without tophus, unspecified laterality M1A.3790 Gout site: ankle Gout etiology: due to renal impairment Chronicity: chronic Laterality: unspecified laterality Presence of tophus: without tophus GERD (gastroesophageal reflux disease) K21.9 Anxiety F41.9 Sepsis A41.9; R65.20; N17.8 Acute renal failure type: with other specified pathological lesion Sepsis acute organ dysfunction status: with acute organ dysfunction Sepsis type: sepsis due to unspecified organism Severe sepsis acute organ dysfunction type: acute renal failure Severe sepsis shock status: without septic shock Acute on chronic renal insufficiency N28.9; N18.9 Time Spent (min) 15
--- NOTE | 2023-10-18 13:07 | P.PN_ITS ---
Subjective 2 Subjective: Evaluated at the bedside, no clinical changes from the surgical standpoint Vitals/I&O/Wt Last Vital Signs Temp 97.5 F L 10/18/23 11:27 Pulse 70 10/18/23 11:27 Resp 17 10/18/23 11:27 BP 147/68 10/18/23 11:27 Pulse Ox 96 10/18/23 11:27 O2 Del Method Room Air 10/18/23 11:27 O2 Flow Rate 2 10/17/23 07:40 10/17/23 10/18/23 10/18/23 22:59 06:59 14:59 Intake Total 1993.333 / 2893.333 150 / 3043.333 695 / 695 Output Total 950 / 950 450 / 1400 Balance 1043.333 / 1943.333 -300 / 1643.333 695 / 695 Weight last 48 hrs Weight 192 lb 14.4 oz Weight 186 lb 4.65 oz Physical Exam 2 Chest: OTHER: In the right upper chest surgical wound is healing properly, packing was removed and replaced. Urinary Catheter Management: Estes: Cath Placed During This Visit: yes Reason for Continuing Indwelling Catheter: Accurate Measurement of Urinary Output in Critically Ill Patients Urinary Catheter Date of Insertion: 10/14/23 Urinary Catheter Time of Insertion: 22:15 Data 10/18/23 09:59 10/18/23 09:59 Micro: Microbiology 10/13/23 23:14 Blood Culture - Final Blood Staphylococcus aureus 10/13/23 23:10 Blood Culture - Final Blood Staphylococcus aureus 10/15/23 14:20 Gram Stain - Final Other Source Anaerobic Culture - Preliminary Wound Culture - Final Staphylococcus aureus 10/15/23 03:05 Wound Culture - Final Chest Staphylococcus aureus 10/15/23 14:20 Catheter Tip Culture - Final Other Source Staphylococcus aureus A&P Assessment and plan (1) Postprocedural puncture site infection: Plan Good progression of surgical wound after Mediport removal. Patient can continue with daily packing changes by nursing staff for the remainder of the hospital stay and after that he can transition to home care versus wound care clinic. I will see her in 2 weeks in the clinic to ensure healing. Attestations 2 Medical Necessity Statement*: Per medical team Coding Level of Care Code Acute Code for Chg Fwd Diagnoses Postprocedural puncture site infection T81.49XA
[2023-10-18] MEDS: clopidogrel 75 mg Tablet PO (20:20)
[2023-10-19] VITALS (10 sets, daily range): BP systolic 149–158; BP diastolic 73–85; PULSE 69–81; RESP 16–19; TEMP 36.4–37.1; O2SAT 94–96
[2023-10-19] MEDS: atorvastatin 40 mg Tablet PO (05:57)
[2023-10-19] MEDS: sertraline 100 mg Tablet PO (05:57)
[2023-10-19 07:28] LABS: Basophils % 0.2 %; Eosinophils % 0.2 %; Hematocrit 32.2 % (36-47); Lymphocytes # 1.3 10^3/uL (0.8-4.8); Lymphocytes % 9.8 %; Mean Corpuscular HGB Conc 32.9 g/dL (30-55); Mean Corpuscular Hemoglobin 31.1 pg (27-33); Mean Corpuscular Volume 94.4 fl (85-98); Mean Platelet Volume 11.6 fL (7.4-10.4); Monocytes # 0.9 10^3/uL (0.2-0.9); Monocytes % 7.2 %; Neutrophils # 10.12 10^3/uL (1.8-7.7); Neutrophils % 78.3 %; Nucleated Red Blood Cells % 0 %; Platelet Count 121 10^3/cmm (157-399); Red Blood Count 3.41 10^6/uL (3.85-5.65); Red Cell Distribution Width 17.2 % (12.1-15.1); White Blood Count 12.94 10^3/uL (3.29-11.43)
[2023-10-19 07:40] LABS: Vancomycin Trough 19.3 ug/mL (10-15)
[2023-10-19] MEDS: ketorolac 30 mg/mL INJ IVP (08:45)
[2023-10-19] MEDS: vancomycin 1,000 MG in sodium chloride 0.9% 250 ML 250 MG IV ×2 (08:48→20:07)
--- NOTE | 2023-10-19 09:24 | PC.SOCIAL ---
IMM Update pg 2 of IMM updated and reviewed w/ patient and her . Copy provided and copy dated, initialed and placed in chart.
[2023-10-19 13:09] LABS: Urine Appearance Cloudy (CLEAR); Urine Color Yellow (Yellow); pH Urine 5 (5-7)
[2023-10-19 13:10] LABS: Add Urine Microscopic? YES; Bilirubin Urine 2+ (Negative); Blood Urine 3+ (Negative); Glucose Urine UA Norm (Normal); Ketones Urine 1+ (Negative); Leukocyte Esterase Urine 1+ (Negative); Nitrate Urine Positive (Negative); Protein Urine 2+ (Negative); Specific Gravity, Urine 1.005 (1.005-1.030); Urobilinogen Urine Neg (Negative)
[2023-10-19 13:11] LABS: Add Urine Culture? Yes; Bacteria Urine 4+ /hpf; Mucus Urine TRACE /hpf; RBC Urine TOO NUMEROUS TO CNT /hpf (0-2); Squamous Epithelial Cell Urine 0-4 /hpf (0-5)
--- NOTE | 2023-10-19 13:24 | P.PN_ITS ---
Subjective 2 Subjective: No acute overnight events noted. Seen her at bedside this morning, explained the importance of participating in PT, getting out of bed to chair and as needed pain medications to help with recovery. She is afebrile and hemodynamically stable. Estes and bag seem to be containing red-colored urine. Vitals/I&O/Wt Last Vital Signs Temp 97.6 F 10/19/23 11:32 Pulse 79 10/19/23 11:32 Resp 18 10/19/23 11:32 BP 154/74 10/19/23 11:32 Pulse Ox 94 10/19/23 11:32 O2 Del Method Room Air 10/19/23 11:32 O2 Flow Rate 2 10/17/23 07:40 10/18/23 10/19/23 10/19/23 22:59 06:59 14:59 Intake Total 310 / 1005 200 / 1205 250 / 250 Output Total 1500 / 3250 700 / 3950 750 / 750 Balance -1190 / -2245 -500 / -2745 -500 / -500 Weight last 48 hrs Weight 84.867 kg Weight 87.498 kg Physical Exam 2 Narrative: General: Patient is awake, alert and oriented x 3 She is s/p Mediport removal and dressing present in the infraclavicular region, no new discharge or erythema noted Head: Normocephalic. Atraumatic. EOM intact. Neck: No JVD. Cardiovascular: RRR. No gallops. No murmurs. Lungs: Breath sounds equal on both sides, no use of accessory muscles, no crackles or wheezes. On room air. Skin: No jaundice. No rashes. Abdomen: Normal bowel sounds, abdomen soft, nontender nondistended. No guarding. Extremities: No cyanosis or clubbing. Musculoskeletal: No swollen or erythematous joints. Neurological: Moves all 4 extremities. No myoclonus. Urinary Catheter Management: Estes: Cath Placed During This Visit: yes Reason for Continuing Indwelling Catheter: Acute Urinary Retention or Obstruction Urinary Catheter Date of Insertion: 10/14/23 Urinary Catheter Time of Insertion: 22:15 Data 10/19/23 07:12 10/18/23 09:59 Micro: Microbiology 10/15/23 14:20 Gram Stain - Final Other Source Anaerobic Culture - Preliminary Wound Culture - Final Staphylococcus aureus 10/13/23 23:14 Blood Culture - Final Blood Staphylococcus aureus 10/13/23 23:10 Blood Culture - Final Blood Staphylococcus aureus A&P Assessment and plan (1) Congestive heart failure: Qualifiers: Heart failure chronicity: acute on chronic Heart failure type: d iastolic Qualified Code(s): I50.33 - Acute on chronic diastolic (congestive) heart failure (2) Abdominal pain: (3) Recurrent UTI: (4) HTN (hypertension): Qualifiers: Hypertension type: primary hypertension Qualified Code(s): I10 - Essential (primary) hypertension (5) CAD (coronary artery disease): (6) Atrial fibrillation: (7) Gout: Qualifiers: Gout site: ankle Gout etiology: due to renal impairment Chronicity: c hronic Laterality: unspecified laterality Presence of tophus: without tophus Qualified Code(s): 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, unspecified ankle and foot, without tophus (tophi) (8) GERD (gastroesophageal reflux disease): (9) Anxiety: (10) Sepsis: Qualifiers: Acute renal failure type: with other specified pathological lesion S epsis acute organ dysfunction status: with acute organ dysfunction Sepsis type: sepsis due to unspecified organism Severe sepsis acute organ dysfunction type: acute renal failure Severe sepsis shock status: without septic shock Qualified Code(s): A41.9 - Sepsis, unspecified organism; R65.20 - Severe sepsis without septic shock; N17.8 - Other acute kidney failure (11) Acute on chronic renal insufficiency: Plan ==> New onset hematuria in spite of improved platelet-likely UTI, has Estes catheter in place Will check UA Hold Plavix and Eliquis for now. Will monitor ==> New onset thrombocytopenia-likely thought to be due to sepsis initially but platelets trending down to 91 today. She is not on any heparin like products. Will discontinue IV Protonix for now Thrombocytopenia likely secondary to Protonix. Platelets improved to 121 today (1) Sepsis: Severe sepsis leukocytosis resolved Clinically improving and looks much better as compared to admission Source: Likely secondary to Mediport site infection s/p Mediport removal Continue IV vancomycin since blood cultures, catheter report culture and wound culture showed coagulase positive Staph aureus, will discharge on possibly p.o. Augmentin. Off Levophed, maintaining systolic blood pressure in 120s Supportive care and wound care (2) BERNADETTE (acute kidney injury): BERNADETTE on CKD stage II, creatinine 0.5 today Discontinue lactated Ringer (3) Congestive heart failure: Heart failure with reduced ejection Status post IV fluid boluses in ED, she is very high risk for CHF exacerbation Continue beta srikanth Last 2D echo showed EF of 41%, with global hypokinesia Will resume home dose of Bumex (4) HTN (hypertension): Hold lisinopril and Bumex due to soft blood pressure and BERNADETTE (5) CAD (coronary artery disease): Held plavix (6) Atrial fibrillation: Continue metoprolol for rate control Held apixaban (7) Gout: Start allopurinol for now (8) GERD (gastroesophageal reflux disease): Will do Maalox 30 mL every 6 hours as needed (9) Anxiety: Continue home Xanax Continue home SSRI Cardiac diet DVT prophylaxis: Apixaban CODE STATUS: Full code Attestations 2 Medical Necessity Statement*: She needs continued hospitalization for new onset hematuria, if resolves patient to be discharged to subacute facility for PT. will follow-up case management Time Spent in Patient Care: 15minutes Coding Level of Care Code Acute Code for Chg Fwd Diagnoses Acute on chronic diastolic congestive heart failure I50.33 Heart failure chronicity: acute on chronic Heart failure type: diastolic Abdominal pain R10.9 Recurrent UTI N39.0 Primary hypertension I10 Hypertension type: primary hypertension CAD (coronary artery disease) I25.10 Atrial fibrillation I48.91 Chronic gout due to renal impairment involving ankle without tophus, unspecified laterality [id number] Gout site: ankle Gout etiology: due to renal impairment Chronicity: chronic Laterality: unspecified laterality Presence of tophus: without tophus GERD (gastroesophageal reflux disease) K21.9 Anxiety F41.9 Sepsis A41.9; R65.20; N17.8 Acute renal failure type: with other specified pathological lesion Sepsis acute organ dysfunction status: with acute organ dysfunction Sepsis type: sepsis due to unspecified organism Severe sepsis acute organ dysfunction type: acute renal failure Severe sepsis shock status: without septic shock Acute on chronic renal insufficiency N28.9; N18.9 Time Spent (min) 15
[2023-10-19] MEDS: HYDROcodone-acetaminophen 5-325 mg Tablet 1 TAB PO (14:18)
[2023-10-20] VITALS (10 sets, daily range): BP systolic 105–155; BP diastolic 65–80; PULSE 68–79; RESP 17–19; TEMP 36.6–37.1; O2SAT 94–96
[2023-10-20] MEDS: sertraline 100 mg Tablet PO (05:52)
[2023-10-20] MEDS: atorvastatin 40 mg Tablet PO (05:52)
[2023-10-20 06:06] LABS: Basophils % 0.3 %; Eosinophils # 0.1 10^3/uL (0.0-0.8); Eosinophils % 0.8 %; Hematocrit 32.1 % (36-47); Lymphocytes # 1.4 10^3/uL (0.8-4.8); Lymphocytes % 11.6 %; Mean Corpuscular HGB Conc 32.4 g/dL (30-55); Mean Corpuscular Hemoglobin 30.1 pg (27-33); Mean Platelet Volume 12.1 fL (7.4-10.4); Monocytes # 0.9 10^3/uL (0.2-0.9); Monocytes % 7.2 %; Neutrophils # 9.04 10^3/uL (1.8-7.7); Neutrophils % 76.1 %; Nucleated Red Blood Cells % 0 %; Platelet Count 148 10^3/cmm (157-399); Red Blood Count 3.45 10^6/uL (3.85-5.65); Red Cell Distribution Width 17.3 % (12.1-15.1); White Blood Count 11.86 10^3/uL (3.29-11.43)
[2023-10-20] MEDS: HYDROcodone-acetaminophen 5-325 mg Tablet 1 TAB PO ×2 (07:24→19:41)
[2023-10-20] MEDS: lisinopril 10 mg Tablet 5 MG PO (08:55)
[2023-10-20] MEDS: allopurinol 100 mg Tablet 400 MG PO (08:55)
[2023-10-20] MEDS: vancomycin 1,000 MG in sodium chloride 0.9% 250 ML 250 MG IV ×2 (08:57→19:41)
[2023-10-20] MEDS: apixaban 5 mg Tablet PO ×2 (08:57→19:41)
[2023-10-20] MEDS: cefTRIAXone 1,000 MG in sodium chloride 0.9% (plus) 50 ML 100 MG IV (10:27)
--- NOTE | 2023-10-20 11:14 | XRR_ITS ---
PROCEDURE INFORMATION: Exam: XR Lumbosacral Spine Exam date and time: 10/20/2023 2:03 PM Age: 73 years old Clinical indication: Low back pain; Prior surgery; Surgery date: 6+ months; Surgery type: Open heart/pacer TECHNIQUE: Imaging protocol: Radiologic exam of the lumbosacral spine. Views: 2 or 3 views. COMPARISON: CT abdomen pelvis wo con [id number] 10/14/2023 12:49 AM FINDINGS: Bones/joints: Mild broad-based convex left curvature of the lumbar spine centered at L2. Spinal alignment is normal in the sagittal plane. There is moderate diffuse lumbar disc degeneration. There is moderate lower lumbar facet spondylosis. The visible portion of the pelvis and sacrum is intact. Visible portions of the ribs are intact. Soft tissues: Visible soft tissues are unremarkable. Vasculature: Vascular stents are visible in the upper and lower abdomen. There is severe aortic atherosclerotic disease. XR/XR lumbar spine 2-3V* [id number] IMPRESSION: 1. No acute findings. 2. Moderate lower lumbar disc and facet degeneration. 3. Mild convex left lumbar scoliosis centered at L2.
--- NOTE | 2023-10-20 11:14 | XRR_ITS ---
PROCEDURE INFORMATION: Exam: XR Thoracic Spine Exam date and time: 10/20/2023 2:06 PM Age: 73 years old Clinical indication: Pain in thoracic spine; Prior surgery; Surgery date: 6+ months; Surgery type: Open heart/pacer; Additional info: Back pain TECHNIQUE: Imaging protocol: Radiologic exam of the thoracic spine. Views: 3 views. COMPARISON: CR XR lumbar spine 2-3V* [id number] 10/20/2023 2:03 PM FINDINGS: Tubes, catheters and devices: Sternal wires are visible. Bones/joints: Spinal alignment is normal. Vertebral body height is maintained. Mild diffuse thoracic disc degeneration. No large posterior osteophytes. No acute fracture. Soft tissues: Visible soft tissues are unremarkable. XR/XR thoracic spine 3V* [id number] IMPRESSION: No acute findings.
[2023-10-20] MEDS: bumetanide 0.25 mg/mL SDV 4 mL 1 MG IVP ×2 (13:31→20:52)
--- NOTE | 2023-10-20 13:38 | P.PN_ITS ---
Subjective 2 Subjective: Patient was seen this morning, she sitting up in a chair, at bedside, does report significant weakness, fatigue with minimal ambulation, denies any fevers, no chills, does have a poor appetite, does have lower extremity edema, had a detailed discussion with her about her Mediport infection with her bacteremia, admitted consult infectious disease, I think patient is likely going to need IV antibiotics, he will get infectious disease recommendations, she does also have evidence of a UTI, she has a Estes catheter in place, I added on Rocephin, she is too weak to ambulate to use the bathroom she tells me, will keep in the the Estes catheter for now, she does appear a bit jaundiced, we discussed ordering liver function studies, she does complain of back pain, we discussed x-ray of her lumbar and thoracic spine, she did denies any fevers overnight, she does feel better compared to yesterday, denies any hematuria in her Estes catheter bag, will resume her Eliquis Vitals/I&O/Wt Last Vital Signs Temp 97.9 F 10/20/23 12:00 Pulse 69 10/20/23 12:00 Resp 18 10/20/23 12:00 BP 138/73 10/20/23 12:00 Pulse Ox 94 10/20/23 12:00 O2 Del Method Room Air 10/20/23 08:23 O2 Flow Rate 2 10/17/23 07:40 10/19/23 10/20/23 10/20/23 22:59 06:59 14:59 Intake Total 310 / 560 120 / 680 780 / 780 Output Total 900 / 1650 300 / 1950 Balance -590 / -1090 -180 / -1270 780 / 780 Weight last 48 hrs Weight 84.776 kg Weight 84.867 kg Physical Exam 2 Const: COMMON NORMALS: no acute distress and patient oriented x3 GENERAL APPEARANCE: frail appearing NUTRITIONAL APPEARANCE: thin OTHER: Evidence of temporal muscle wasting Resp: COMMON NORMALS: normal respiratory effort, No retractions, No use of accessory muscles and clear to auscultation bilaterally AUSCULTATION: clear to auscultation bilaterally Cardio: COMMON NORMALS: regular rate, regular rhythm, S1 normal heart sound present and S2 normal heart sound present RATE: regular rate RHYTHM: r egular rhythm HEART SOUNDS: S1 normal heart sound present and S2 normal heart sound present GI: COMMON NORMALS: Normal to inspection, nondistended, normoactive bowel sounds present and non-tender Extremity: COMMON NORMALS: no pedal edema Neuro: COMMON NORMALS: patient oriented x3 Psych: COMMON NORMALS: mental status grossly normal Urinary Catheter Management: Estes: Cath Placed During This Visit: yes Reason for Continuing Indwelling Catheter: Acute Urinary Retention or Obstruction Urinary Catheter Date of Insertion: 10/14/23 Urinary Catheter Time of Insertion: 22:15 Data 10/20/23 05:28 10/18/23 09:59 Micro: Microbiology 10/20/23 12:45 Blood Culture - Preliminary Blood SPECIMEN COLLECTED 10/20/23 12:20 Blood Culture - Preliminary Blood SPECIMEN COLLECTED 10/15/23 14:20 Gram Stain - Final Other Source Anaerobic Culture - Preliminary Wound Culture - Final Staphylococcus aureus A&P Assessment and plan (1) Congestive heart failure: Qualifiers: Heart failure chronicity: acute on chronic Heart failure type: d iastolic Qualified Code(s): I50.33 - Acute on chronic diastolic (congestive) heart failure (2) Abdominal pain: (3) Recurrent UTI: (4) HTN (hypertension): Qualifiers: Hypertension type: primary hypertension Qualified Code(s): I10 - Essential (primary) hypertension (5) CAD (coronary artery disease): (6) Atrial fibrillation: (7) Gout: Qualifiers: Chronicity: chronic Gout etiology: due to renal impairment Gout site: ankle Laterality: unspecified laterality Presence of tophus: without tophus Qualified Code(s): 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, unspecified ankle and foot, without tophus (tophi) (8) GERD (gastroesophageal reflux disease): (9) Anxiety: (10) Sepsis: Qualifiers: Acute renal failure type: with other specified pathological lesion S epsis acute organ dysfunction status: with acute organ dysfunction Sepsis type: sepsis due to unspecified organism Severe sepsis acute organ dysfunction type: acute renal failure Severe sepsis shock status: without septic shock Qualified Code(s): A41.9 - Sepsis, unspecified organism; R65.20 - Severe sepsis without septic shock; N17.8 - Other acute kidney failure (11) Acute on chronic renal insufficiency: (12) Staphylococcus aureus bacteremia: (13) Bloodstream infection due to Port-A-Cath: (14) Physical deconditioning: (15) History of pacemaker: Plan Staph aureus bacteremia, Mediport staph infection ? Initial set of blood cultures positive for Staph aureus -catheter tip culture positive for Staph aureus ? Chest wound cultures positive for Staph aureus ? Status post Mediport removal ? Plan ? Repeat blood cultures are pending ? Currently on vancomycin, Rocephin ? Infectious disease consulted ? Patient does have a pacemaker in place, if patient remains bacteremic we will consider OLVIN New onset hematuria in spite of improved platelet-likely UTI, has Estes catheter in place Resolved UA with evidence of UTI Hold Plavix Resume Eliquis for now. Will monitor Thrombocytopenia Associate with Protonix, ? Monitor Jaundice, scleral icterus - liver function studies Physical deconditioning, protein calorie malnutrition ? PT OT ? Protein shakes twice daily Back pain ? X-ray thoracic and lumbar spine (1) Sepsis: Resolved leukocytosis resolved Clinically improving and looks much better as compared to admission Source: Likely secondary to Mediport site infection s/p Mediport removal Continue IV vancomycin since blood cultures, catheter report culture and wound culture showed coagulase positive Staph aureus Off Levophed, maintaining systolic blood pressure in 120s Supportive care and wound care (2) BERNADETTE (acute kidney injury): BERNADETTE on CKD stage II, creatinine 0.5 today Discontinue lactated Ringer (3) Congestive heart failure: Currently in exacerbation Heart failure with reduced ejection Status post IV fluid boluses in ED, she is very high risk for CHF exacerbation Continue beta srikanth Last 2D echo showed EF of 41%, with global hypokinesia Has evidence of fluid overload 2+ pitting edema Bumex 1 mg twice daily today, for 2 doses, monitor urine output, monitor creatinine (4) HTN (hypertension): (5) CAD (coronary artery disease): Held plavix (6) Atrial fibrillation: apixaban (7) Gout: Start allopurinol for now (8) GERD (gastroesophageal reflux disease): Will do Maalox 30 mL every 6 hours as needed (9) Anxiety: Continue home Xanax Continue home SSRI Cardiac diet DVT prophylaxis: Apixaban CODE STATUS: Full code Will require [facility] placement Attestations 2 Medical Necessity Statement*: Patient requires hospitalization for Mediport infection Staph aureus bacteremia requiring IV antibiotics, with fluid overload requiring IV diuresis, hematuria Diagnoses Acute on chronic diastolic congestive heart failure I50.33 Heart failure chronicity: acute on chronic Heart failure type: diastolic Abdominal pain R10.9 Recurrent UTI N39.0 Primary hypertension I10 Hypertension type: primary hypertension CAD (coronary artery disease) I25.10 Atrial fibrillation I48.91 Chronic gout due to renal impairment involving ankle without tophus, unspecified laterality [id number] Chronicity: chronic Gout etiology: due to renal impairment Gout site: ankle Laterality: unspecified laterality Presence of tophus: without tophus GERD (gastroesophageal reflux disease) K21.9 Anxiety F41.9 Sepsis A41.9; R65.20; N17.8 Acute renal failure type: with other specified pathological lesion Sepsis acute organ dysfunction status: with acute organ dysfunction Sepsis type: sepsis due to unspecified organism Severe sepsis acute organ dysfunction type: acute renal failure Severe sepsis shock status: without septic shock Acute on chronic renal insufficiency N28.9; N18.9 Staphylococcus aureus bacteremia R78.81; B95.61 Bloodstream infection due to Port-A-Cath T80.211A Physical deconditioning R53.81 History of pacemaker Z95.0
[2023-10-20 14:21] LABS: Alanine Aminotransferase 53 U/L (0-33); Albumin Level 2.8 g/dL (3.5-5.2); Alkaline Phosphatase 706 U/L (35-105); Anion Gap 13.7 (5-19); Aspartate Amino Transferase 133 U/L (0-32); Blood Urea Nitrogen 23 mg/dL (8-23); C Reactive Protein 106.9 mg/L (0.0-4.9); Calcium 8.8 mg/dL (8.5-10.5); Carbon Dioxide 26 mmol/L (22-29); Chloride 94 mmol/L (98-107); Creatinine Clr Calc Pharmacy 61.6462; Gamma Glutamyl Transferase 351 U/L (5-36); Globulin 3.2 g/dL (1.3-4.6); Glucose 106 mg/dL (65-115); Lipase 108 U/L (13-60); Osmolality Calculated 274 mOsm/kg (285-295); Potassium 3.7 mmol/L (3.5-5.1); Sodium 130 mmol/L (136-145); Total Bilirubin 5.1 mg/dL (0.15-1.2)
[2023-10-20 14:26] LABS: Total Bilirubin 5.1 mg/dL (0.15-1.2)
--- NOTE | 2023-10-20 15:38 | USR_ITS ---
PROCEDURE INFORMATION: Exam: US Abdomen, Limited; Right Upper Quadrant Exam date and time: 10/20/2023 4:51 PM Age: 73 years old Clinical indication: Abnormal findings; Abnormal lab test; Abnormal function test of other organs/systems; Patient HX: PT stated gb removed. Gb is not actually removed. PT unable to roll for decub gb imaging. ; Additional info: Hyperbilirubienmia TECHNIQUE: Imaging protocol: Real time ultrasound of the abdomen with image documentation. Limited exam focused on the right upper quadrant. COMPARISON: US abdomen complete* [id number] 10/14/2023 4:22 PM FINDINGS: Liver: The liver has a diffusely lobulated contour. No liver mass. Gallbladder: Gallbladder is decompressed. Wall thickness measures 3 mm. No visible gallstones. Biliary ducts: The common bile duct is nondilated measuring 5 mm. Pancreas: The pancreas is largely obscured by overlying bowel gas. The visible portion of the pancreas is unremarkable. Right kidney: Small right kidney demonstrates diffusely thin cortex and no hydronephrosis. Right renal length is 9.5 cm. There is a 2 cm simple cyst exophytic from the upper pole of the right kidney. Aorta: The upper abdominal aorta is unremarkable. Inferior vena cava: The upper IVC is unremarkable. Portal venous: The main portal vein demonstrates hepatopetal flow. There is a pulsatile waveform in the main portal vein. US/US liver [id number] IMPRESSION: 1. Decompressed gallbladder. No visible stones. No biliary dilation. 2. Moderately atrophic right kidney. 3. Morphologic features of the liver suggest cirrhosis.
[2023-10-20 17:17] LABS: Lipase 98 U/L (13-60)
[2023-10-20 18:15] LABS: Hepatitis A Antibody IgM Non-Reactive (Nonreactive)
[2023-10-21] VITALS (9 sets, daily range): BP systolic 143–151; BP diastolic 64–75; PULSE 69–85; RESP 16–19; TEMP 36.6–36.9; O2SAT 92–95
[2023-10-21 01:16] LABS: Hepatitis B Core IgM Non-Reactive (Nonreactive); Hepatitis B Surface Antigen Non-Reactive (Nonreactive); Hepatitis C Virus Antibody Non-Reactive (Nonreactive)
[2023-10-21] MEDS: ceFAZolin 2,000 MG in sodium chloride 0.9% (plus) 50 ML 100 MG IV ×3 (04:43→21:30)
[2023-10-21] MEDS: HYDROcodone-acetaminophen 5-325 mg Tablet 1 TAB PO ×2 (04:43→21:29)
[2023-10-21 05:44] LABS: Basophils # 0.1 10^3/uL (0.0-0.1); Basophils % 0.4 %; Eosinophils # 0.1 10^3/uL (0.0-0.8); Eosinophils % 0.9 %; Hematocrit 30.5 % (36-47); Lymphocytes # 1.1 10^3/uL (0.8-4.8); Lymphocytes % 8.5 %; Mean Corpuscular HGB Conc 31.8 g/dL (30-55); Mean Corpuscular Hemoglobin 30.8 pg (27-33); Mean Corpuscular Volume 96.8 fl (85-98); Monocytes # 0.9 10^3/uL (0.2-0.9); Monocytes % 6.8 %; Neutrophils # 10.37 10^3/uL (1.8-7.7); Neutrophils % 80.7 %; Nucleated Red Blood Cells % 0 %; Platelet Count 147 10^3/cmm (157-399); Red Blood Count 3.15 10^6/uL (3.85-5.65); Red Cell Distribution Width 17.8 % (12.1-15.1); White Blood Count 12.85 10^3/uL (3.29-11.43)
[2023-10-21 06:08] LABS: Alanine Aminotransferase 44 U/L (0-33); Albumin Level 2.4 g/dL (3.5-5.2); Alkaline Phosphatase 673 U/L (35-105); Anion Gap 16.6 (5-19); Aspartate Amino Transferase 116 U/L (0-32); Blood Urea Nitrogen 24 mg/dL (8-23); Calcium 8.3 mg/dL (8.5-10.5); Carbon Dioxide 23 mmol/L (22-29); Chloride 96 mmol/L (98-107); Globulin 3.1 g/dL (1.3-4.6); Glucose 88 mg/dL (65-115); Osmolality Calculated 277 mOsm/kg (285-295); Potassium 3.6 mmol/L (3.5-5.1); Sodium 132 mmol/L (136-145); Total Bilirubin 4.2 mg/dL (0.15-1.2); Total Protein 5.5 g/dL (6.6-8.7)
[2023-10-21 06:13] LABS: Creatinine Clr Calc Pharmacy 50.4378
[2023-10-21 06:29] LABS: NT Pro B Type Natriuretic Pept 18593 pg/mL (0-125)
--- NOTE | 2023-10-21 07:48 | PM.CONSULT ---
Providers/Reason For Consult Consulting Physician/Specialty*: Cathleen Marquis MD/ infectious disease Reason for Consult*: MSSA bacteremia Requesting Physician: Ish Loya MD Attending Physician: Ish Loya MD Primary Care Provider: Derek Dowd DO History of Present Illness History of Present Illness Essie Alejandre is a 73 year old female with past medical history of congestive heart failure with last known EF of 30 to 35%, post CABG, post angioplasty of in-stent restenosis of SVG to diagonal in 2022, pulmonary embolism chronically on Eliquis, hypertension. Patient had a port placed in September 2023 due to difficulty with IV access. Patient reports a history of recurrent hospital admissions related to multiple comorbidities, recently had cholecystectomy in August 2023. she has had difficulties with IV access on all of her admissions therefore report was recommended. A right chest wall port was placed on September 27, 2023. She was most recently admitted here until October 08, 2023 for CHF exacerbation. He presented to the hospital again on October 14, 2023 with abdominal pain, diarrhea,'s fever and chills. Blood cultures were found to be positive for MSSA and her port site was warm swollen and erythematous. There was some discharge. Port was removed on October 15, 2023. Hospital course has also been complicated by persisting leukocytosis, acute kidney injury, deranged LFTs. She has underlying pacemaker. No other orthopedic hardware Review of Systems General: Reports: 10 or more systems reviewed and unremarkable except in HPI and below Const: Denies: fever(s), chills or body aches Eyes: Denies: change in vision, blurry vision or photophobia ENMT: Reports: hoarseness; Denies: throat pain, enlarged tonsils, odynophagia or nasal congestion Card: Denies: chest pain, palpitations, irregular heart rhythm, edema, swelling of feet/ankles, lightheadedness, pre-syncope, dyspnea on exertion or orthopnea Resp: Denies: dyspnea, productive cough, non-productive cough, wheezing, stridor, pain on inspiration, change in phlegm color, hemoptysis or chest congestion GI: Denies: abdominal pain, nausea, vomiting, hematemesis, coffee ground emesis, dysphagia, heartburn, diarrhea, constipation, GI cramping, change in stool character, hematochezia or melena : Denies: flank pain, difficulty voiding, dysuria, urinary frequency, urinary urgency, urinary hesitancy or hematuria Musc: Denies: neck pain, back pain, extremity pain, joint swelling, joint warmth or deformity Neuro: Denies: headache(s), numbness in extremities, weakness in extremities, sensory changes, difficulty walking, frequent falls, dizziness, vertigo, behavioral changes, Slurred speech present or seizure-like activity Psych: Denies: anxiety, depression, suicidal ideation or homicidal ideation Endo: Denies: polyuria, polydipsia, tired all the time, cold intolerance or hot flashes Jerardo/Lymph: Denies: easy bruising or easy bleeding Medications/Allergies Home Medications Medication Instructions Recorded Confirmed Last Taken Type multivitamin 1 tab PO QAM 06/08/21 10/14/23 1 Day Ago History ~10/13/23 omega-3 fatty acids 1,000 mg 1,000 mg PO DAILY 03/24/22 10/14/23 1 Day Ago History capsule ~10/13/23 acetaminophen 650 mg 1,300 mg PO BID 09/17/22 10/14/23 1 Day Ago History tablet,extended release (Tylenol ~10/13/23 Arthritis Pain) nitroglycerin 0.4 mg sublingual 0.4 mg sublingual Q5M PRN Chest 12/06/22 10/14/23 Unknown Rx tablet (Nitrostat) Pain #30 tabs atorvastatin 40 mg tablet 40 mg PO QAM #90 tabs 12/13/22 10/14/23 1 Day Ago Rx ~10/13/23 sertraline 100 mg tablet 100 mg PO QAM #90 tabs 12/13/22 10/14/23 1 Day Ago Rx ~10/13/23 pantoprazole 40 mg tablet,delayed 40 mg PO BID 04/23/23 10/14/23 1 Day Ago History release ~10/13/23 allopurinol 100 mg tablet 400 mg (4 x 100 mg) PO DAILY #120 04/27/23 10/14/23 1 Day Ago Rx tabs ~10/13/23 ascorbic acid (vitamin C) 500 mg See Rx Instructions .Route .COMPLEX 06/06/23 10/14/23 2 Days Ago History tablet (Vitamin C) ~10/12/23 bisacodyl 5 mg tablet,delayed 5 mg PO DAILY PRN Constipation 06/06/23 10/14/23 08/24/23 History release (Dulcolax (bisacodyl)) ferrous sulfate 325 mg (65 mg See Rx Instructions .Route .COMPLEX 06/06/23 10/14/23 2 Days Ago History iron) tablet (Iron (ferrous ~10/12/23 sulfate)) albuterol sulfate 90 mcg/actuation 2 puff inhalation QID PRN 06/29/23 10/14/23 1 Day Ago Rx aerosol inhaler Shortness Of Breath #8.5 grams ~10/13/23 alprazolam 0.5 mg tablet 0.5 mg PO DAILY PRN Anxiety #20 06/29/23 10/14/23 08/29/23 Rx tabs galantamine 4 mg tablet 4 mg PO BID #60 tabs 07/15/23 10/14/23 1 Day Ago Rx ~10/13/23 metoprolol tartrate 25 mg tablet 25 mg PO BID #120 tabs 07/19/23 10/14/23 1 Day Ago Rx ~10/13/23 apixaban 5 mg tablet (Eliquis) 5 mg PO BID 08/01/23 10/14/23 1 Day Ago History ~10/13/23 clopidogrel 75 mg tablet 75 mg PO BEDTIME 08/01/23 10/14/23 1 Day Ago History ~10/13/23 magnesium chloride 71.5 mg 71.5 mg PO BID #60 tabs 09/06/23 10/14/23 1 Day Ago Rx (magnesium chloride) ~10/13/23 tablet,delayed release (Slow-Mag) potassium chloride 20 mEq 20 meq PO BID #60 tabs 09/06/23 10/14/23 1 Day Ago Rx tablet,extended release(part/cryst) ~10/13/23 bumetanide 1 mg tablet See Rx Instructions .Route 10/08/23 10/14/23 1 Day Ago Rx .COMPLEX #90 tabs ~10/13/23 lisinopril 10 mg tablet 5 mg (1/2 x 10 mg) PO DAILY #90 10/08/23 10/14/23 1 Day Ago Rx tabs ~10/13/23 magnesium 200 mg tablet 200 mg PO DAILY #30 tabs 10/08/23 10/14/23 1 Day Ago Rx ~10/13/23 amoxicillin 875 mg-potassium 1 tab PO BID 7 days #14 tabs 10/13/23 10/14/23 Unknown Rx clavulanate 125 mg tablet Allergies Allergy/AdvReac Type Severity Reaction Status Date / Time tizanidine Allergy Unknown ADR-Halluci Verified 10/13/23 10:10 nating levofloxacin [From Levaquin] Allergy ALGY-Redness Verified 10/13/23 10:10 of Skin Sulfa (Sulfonamide Allergy hives Verified 10/13/23 10:10 Antibiotics) adhesive tape AdvReac Mild Unknown Verified 10/13/23 10:10 Current Medications Generic Name Dose Route Start Last Admin Trade Name Freq PRN Reason Stop Dose Admin Acetaminophen 650 mg 10/14/23 02:07 10/18/23 05:49 Acetaminophen 325 Mg Tablet PO 650 mg Q6H PRN Administration Mild/Mod Pain Or Temp >/= 101 Hydrocodone Bitart/Acetaminophen 1 tab 10/19/23 12:28 10/21/23 04:43 Hydrocodone-Acetaminophen 5-325 Mg Tablet PO 1 tab Q6H PRN Administration MODERATE PAIN Allopurinol 400 mg 10/20/23 09:00 10/20/23 08:55 Allopurinol 100 Mg Tablet PO 400 mg DAILY JEREMY Administration Alprazolam 0.5 mg 10/14/23 02:07 10/17/23 22:26 Alprazolam 0.5 Mg Tablet PO 0.5 mg DAILY PRN Administration Anxiety Apixaban 5 mg 10/20/23 09:00 10/20/23 19:41 Apixaban 5 Mg Tablet PO 5 mg BID@0900,2100 JEREMY Administration Cefazolin Sodium 2,000 mg/ 50 mls @ 100 mls/hr 10/21/23 03:15 10/21/23 05:06 Sodium Chloride IV Infused Q8H JEREMY Infusion Protocol Lisinopril 5 mg 10/20/23 09:00 10/20/23 08:55 Lisinopril 10 Mg Tablet PO 5 mg DAILY JEREMY Administration PFSH Acute PFSH: Medical History (Updated 10/23/23 @ 06:51 by Cathleen Marquis MD) NSTEMI (non-ST elevated myocardial infarction) Hospital discharge follow-up Leg swelling CVA (cerebral vascular accident) History of colon polyps Shortness of breath Mastitis Breast enlargement Cholecystitis Bacterial vaginosis Needs flu shot UTI (urinary tract infection) Degenerative disc disease, cervical Neuropathy Staphylococcus epidermidis bacteremia Pulmonary embolism Mixed incontinence urge and stress Facet arthritis, degenerative, cervical spine Cervical osteoarthritis Chronic neck pain Chest pain Follow-up exam Edema of all four extremities Abnormal laboratory test result Neutropenia Diuretic-induced hypokalemia Parainfluenza infection Acute exacerbation of chronic obstructive pulmonary disease Chronic headaches Acute alteration in mental status Essential hypertension Thrush, oral Dysphagia Hypokalemia Hypomagnesemia Mixed dyslipidemia Fatigue Allergic rhinitis Esophageal spasm GERD with esophagitis Lumbar disc disease with radiculopathy Facet arthropathy, lumbar GERD without esophagitis Establishing care with new doctor, encounter for Nausea & vomiting High risk medication use High risk medication use Thrush Cellulitis Anemia Port-A-Cath in place Poor venous access Hearing loss associated with syndrome of both ears Elevated troponin I level Acute cystitis without hematuria Intracranial atherosclerosis Balance disorder Cognitive impairment Cardiac 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 therapy 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 (LUMP ROOM SUPERVISOR-D) in place Recurrent UTI CKD (chronic kidney disease) stage 3, GFR 30-59 ml/min 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 GERD (gastroesophageal reflux disease) Hyperlipidemia Iron deficiency anemia Gout Sleep apnea Vertebral artery stenosis Left bundle branch block Right internal carotid artery aneurysm Vertebrobasilar insufficiency Atrial fibrillation PAD (peripheral artery disease) Renal artery stenosis Cardiomyopathy CHF (congestive heart failure) Anticoagulant long-term use BASIA (obstructive sleep apnea) HTN (hypertension) Chronic renal insufficiency, stage II (mild) Surgical History Status post cholecystectomy Hx of arthroscopy of right knee S/P appendectomy S/P section S/P hysterectomy Status post tubal ligation Status post aorto-coronary artery bypass graft S/P CABG (coronary artery bypass graft) S/P angioplasty with stent S/P ICD (internal cardiac 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) procedure H/O cardiac radiofrequency ablation Family History Father , AT AGE 65 Hyperlipidemia CAD (coronary artery disease) Hypertension Rheumatoid arthritis Mother , AT AGE 65 Hyperlipidemia CAD (coronary artery disease) Hypertension Diabetes Sister Hyperlipidemia CAD (coronary artery disease) Hypertension Diabetes Other Cancer Social History Smoking and tobacco/nicotine status: former use of tobacco/nicotine Second hand smoke exposure: No Alcohol intake: never Substance/Drug Use: never Marital status: Current occupational status: retired Female Reproductive History: Spontaneous abortions: No Vitals/I&O/Wt Last Vital Signs Temp 98.5 F 10/21/23 07:43 Pulse 69 10/21/23 07:43 Resp 16 10/21/23 07:43 BP 150/72 10/21/23 07:43 Pulse Ox 94 10/21/23 07:43 O2 Del Method Room Air 10/21/23 07:43 O2 Flow Rate 2 10/17/23 07:40 10/20/23 10/21/23 10/21/23 22:59 06:59 14:59 Intake Total 730 / 1510 290 / 1800 Output Total 800 / 800 600 / 1400 Balance -70 / 710 -310 / 400 Weight last 48 hrs Weight 87.135 kg Weight 84.776 kg Physical Exam Narrative: General: Chronically ill lady lying in bed, slightly tachypneic HEENT: PERRLA, pupils bilaterally equal and reactive, pallors not present, scleral icterus present Chest: Normal vesicular breath sounds, no added sounds, equal good air entry bilaterally CVS: S1-S2 regular, no murmurs, no tachycardia, no gallops, no rubs Abdomen: Soft, nontender, no organomegaly, bowel sounds present Neuro: No focal deficits, no facial deformity, AO x3, power 5/5 in all limbs Urinary Catheter Management: Estes: Cath Placed During This Visit: yes Reason for Continuing Indwelling Catheter: Other Urinary Catheter Date of Insertion: 10/14/23 Urinary Catheter Time of Insertion: 22:15 Data 10/23/23 05:29 10/23/23 05:29 Micro: Microbiology 10/20/23 12:45 Blood Culture - Preliminary Blood SPECIMEN COLLECTED 10/20/23 12:20 Blood Culture - Preliminary Blood SPECIMEN COLLECTED 10/15/23 14:20 Gram Stain - Final Other Source Anaerobic Culture - Preliminary Wound Culture - Final Staphylococcus aureus NAME: AlejandreEssie [facility] #: [id number] AGE/SX: 73/F ROOM: [facility] RE10/14/[address]: Ish Loya MD : 1950 BED: 1 DIS: FAX #: STATUS: ADM IN TLOC: Spec #: [id number] Bruno: 10/13/23 Status: COMP Req #: [id number] Recd: 10/13/[address]: Radha Berry MD Src: Blood SpDesc: Ordered: Bcult Procedure Result Verified Site Blood Culture Final 10/18/23-1216 3 OF 4 BOTTTLES POSITIVE DIRECT GRAM STAIN: GRAM POSITIVE COCCI IN CLUSTERS IDENTIFICATION BY DIRECT PCR TESTING Organism 1 Staphylococcus aureus Growth 3 BOTTLES Gram Stain Charge Charge for Gram Stain CRITICAL RESULT YES/NO: YES CRITICAL CALLED BY: CLINTON TO AND READ BACK BY: KARTIK DATE: 10/16/23 TIME: 1425 S aureus M.I.C. RX --------- ------ * Amoxicillin/Clavulanate <=4/2 S * Ampicillin >8 R * Ampicillin/Sulbactam <=8/4 S * Ceftriaxone <=8 S * Ciprofloxacin <=1 S * Clindamycin <=0.5 S * Erythromycin <=0.5 S * Gentamicin <=4 S * Levofloxacin <=1 S * Linezolid 4 S * Oxacillin 0.5 S * Penicillin >8 R * Rifampin <=1 S * Tetracycline <=4 S * Trimethoprim/Sulfamethoxazole <=0.5/9.5 S Vancomycin 2 S Daptomycin 1 S Blood Culture Preliminary (changed) 10/16/23-172 2 OF 4 BOTTTLES POSITIVE DIRECT GRAM STAIN: GRAM POSITIVE COCCI IN CLUSTERS IDENTIFICATION BY DIRECT PCR TESTING RESULTS TO FOLLOW Organism 1 Staphylococcus aureus Growth 1 BOTTLE Gram Stain Charge Charge for Gram Stain CRITICAL RESULT YES/NO: YES CRITICAL CALLED BY: CLINTON TO AND READ BACK BY: KARTIK DATE: 10/16/23 TIME: 1425 Blood Culture Preliminary (changed) 10/16/23-1426 1 OF 4 BOTTTLES POSITIVE DIRECT GRAM STAIN: GRAM POSITIVE COCCI IN CLUSTERS IDENTIFICATION BY DIRECT PCR TESTING RESULTS TO FOLLOW Organism 1 Staphylococcus aureus Growth 1 BOTTLE Gram Stain Charge Charge for Gram Stain CRITICAL RESULT YES/NO: YES CRITICAL CALLED BY: CLINTON TO AND READ BACK BY: KARTIK DATE: 10/16/23 TIME: 1425 Blood Culture Preliminary (changed) 10/14/23-2318 NEGATIVE TO DATE Blood Culture Preliminary (changed) 10/13/23-2324 SPECIMEN COLLECTED [facility] [address] [place] [id number] RENETTA SOLORZANO, COMPUTER NETWORK SPECIALIST NAME: [facility]: [id number] LOC: [facility] U #: [id number] AGE/SX: 73/F ROOM: [facility] RE10/14/[address]: Ish Loya MD : 1950 BED: 1 DIS: FAX #: STATUS: ADM IN TLOC: Spec #: [id number] Bruno: 10/13/23-2313 Status: COMP Req #: [id number] Recd: 10/13/[address]: Radha Berry MD Src: Blood SpDesc: Ordered: Bcult Procedure Result Verified Site Blood Culture Final 10/18/23-1218 3 OF 4 BOTTLES POSITIVE DIRECT GRAM STAIN: GRAM POSITIVE COCCI IN CLUSTERS SENSITIVITIES ON [id number] Organism 1 Staphylococcus aureus Growth 3 BOTTLES Gram Stain Charge Charge for Gram Stain CRITICAL RESULT YES/NO: YES CRITICAL CALLED BY: CLINTON TO AND READ BACK BY: KARTIK DATE: 10/16/23 TIME: 1425 Blood Culture Preliminary (changed) 10/16/23-172 2 OF 4 BOTTLES POSITIVE DIRECT GRAM STAIN: GRAM POSITIVE COCCI IN CLUSTERS RESULTS TO FOLLOW Gram Stain Charge Charge for Gram Stain CRITICAL RESULT YES/NO: YES CRITICAL CALLED BY: CLINTON TO AND READ BACK BY: KARTIK DATE: 10/16/23 TIME: 1425 Blood Culture Preliminary (changed) 10/14/23-2318 NEGATIVE TO DATE Blood Culture Preliminary (changed) 10/13/23-2324 SPECIMEN COLLECTED [facility] [address] [place] [id number] RENETTA SOLORZANO, COMPUTER NETWORK SPECIALIST NAME: [facility]jandre [facility] [id number] LOC: [facility] U #: [id number] AGE/SX: 73/F ROOM: 258 RE10/14/[address]: Ish Loya MD : 1950 BED: 1 DIS: FAX #: STATUS: ADM IN TLOC: Spec #: [id number] Bruno: 10/15/23-1419 Status: RES Req #: [id number] Recd: 10/15/[address]: Anthony Rodriguez Src: Other Sour SpDesc: Ordered: WC and GS, Anaer Comments: Comment port Procedure Result Verified Site Gram Stain Final 10/15/23-1649 Result FEW WHITE BLOOD CELLS FEW POLYMORPHONUCLEAR NEUTROPHILS FEW GRAM POSITIVE COCCI IN PAIRS IN CLUSTERS Anaerobic Culture Preliminary 10/21/23-161 NO ANAEROBES ISOLATED ON DAY 6 Anaerobic Culture Preliminary (changed) 10/20/23-1209 NO ANAEROBES ISOLATED ON DAY 5 Anaerobic Culture Preliminary (changed) 10/19/23-161 NO ANAEROBES ISOLATED ON DAY 4 Anaerobic Culture Preliminary (changed) 10/18/23-164 NO ANAEROBES ISOLATED ON DAY 3 Anaerobic Culture Preliminary (changed) 10/17/23-155 NO ANAEROBES ISOLATED ON DAY 2 Anaerobic Culture Preliminary (changed) 10/16/23-1618 NO ANAEROBES ISOLATED ON DAY 1 Wound Culture Final 10/17/23-1537 Organism 1 Staphylococcus aureus Growth MODERATE DAY 2 CRITICAL RESULT YES/NO: YES CRITICAL CALLED BY: CLINTON LAZO AND READ BACK BY: JOSSELIN DATE: 10/17/23 TIME: 1158 S aureus M.I.C. RX --------- ------ * Amoxicillin/Clavulanate <=4/2 S * Ampicillin >8 R * Ampicillin/Sulbactam <=8/4 S * Ceftriaxone <=8 S * Ciprofloxacin <=1 S * Clindamycin <=0.5 S * Erythromycin <=0.5 S * Gentamicin <=4 S * Levofloxacin <=1 S * Linezolid 4 S * Oxacillin 0.5 S * Penicillin >8 R * Rifampin <=1 S * Tetracycline <=4 S * Trimethoprim/Sulfamethoxazole <=0.5/9.5 S Vancomycin 2 S Daptomycin 1 S Wound Culture Preliminary (changed) 10/16/23-1321 Organism 1 Coag positive Staphylococcus Growth MODERATE Other data: [address] [address] Ultrasound Report Signed Patient: Essie Alejandre Unit #: [id number] : 1950 Age/Sex: 73 / F ADM Date: 10/14/23 Loc: [facility] Room/Bed: [facility] Attending Dr: Ish Loya MD Ordering Provider/Ordering MD: Ish Loya MD Date of Service: 10/20/23 Procedure(s): US liver 19250 Accession Number(s): [id number] Report Number: [id number] PROCEDURE INFORMATION: Exam: US Abdomen, Limited; Right Upper Quadrant Exam date and time: 10/20/2023 4:51 PM Age: 73 years old Clinical indication: Abnormal findings; Abnormal lab test; Abnormal function test of other organs/systems; Patient HX: PT stated gb removed. Gb is not actually removed. PT unable to roll for decub gb imaging. ; Additional info: Hyperbilirubienmia TECHNIQUE: Imaging protocol: Real time ultrasound of the abdomen with image documentation. Limited exam focused on the right upper quadrant. COMPARISON: US abdomen complete* [id number] 10/14/2023 4:22 PM FINDINGS: Liver: The liver has a diffusely lobulated contour. No liver mass. Gallbladder: Gallbladder is decompressed. Wall thickness measures 3 mm. No visible gallstones. Biliary ducts: The common bile duct is nondilated measuring 5 mm. Pancreas: The pancreas is largely obscured by overlying bowel gas. The visible portion of the pancreas is unremarkable. Right kidney: Small right kidney demonstrates diffusely thin cortex and no hydronephrosis. Right renal length is 9.5 cm. There is a 2 cm simple cyst exophytic from the upper pole of the right kidney. Aorta: The upper abdominal aorta is unremarkable. Inferior vena cava: The upper IVC is unremarkable. Portal venous: The main portal vein demonstrates hepatopetal flow. There is a pulsatile waveform in the main portal vein. US/US liver 70050 IMPRESSION: 1. Decompressed gallbladder. No visible stones. No biliary dilation. 2. Moderately atrophic right kidney. 3. Morphologic features of the liver suggest cirrhosis. [address] [address] XRay Report Signed Patient: Essie Alejandre Unit #: [id number] : 1950 Age/Sex: 73 / F ADM Date: 10/14/23 Loc: [facility] Room/Bed: 258-[address]: Ish Loya MD Ordering Provider/Ordering MD: Ish Loya MD Date of Service: 10/20/23 Procedure(s): XR thoracic spine 3V* 30711 Accession Number(s): [id number] Report Number: [id number] PROCEDURE INFORMATION: Exam: XR Thoracic Spine Exam date and time: 10/20/2023 2:06 PM Age: 73 years old Clinical indication: Pain in thoracic spine; Prior surgery; Surgery date: 6+ months; Surgery type: Open heart/pacer; Additional info: Back pain TECHNIQUE: Imaging protocol: Radiologic exam of the thoracic spine. Views: 3 views. COMPARISON: CR XR lumbar spine 2-3V* [id number] 10/20/2023 2:03 PM FINDINGS: Tubes, catheters and devices: Sternal wires are visible. Bones/joints: Spinal alignment is normal. Vertebral body height is maintained. Mild diffuse thoracic disc degeneration. No large posterior osteophytes. No acute fracture. Soft tissues: Visible soft tissues are unremarkable. XR/XR thoracic spine 3V* [id number] IMPRESSION: No acute findings. [address] [address] XRay Report Signed Patient: Essie Alejandre Unit #: [id number] : 1950 Age/Sex: 73 / F ADM Date: 10/14/23 Loc: [facility] Room/Bed: [facility] Attending Dr: Ish Loya MD Ordering Provider/Ordering MD: Ish Loya MD Date of Service: 10/20/23 Procedure(s): XR lumbar spine 2-3V* [id number] Accession Number(s): [id number] Report Number: [id number] PROCEDURE INFORMATION: Exam: XR Lumbosacral Spine Exam date and time: 10/20/2023 2:03 PM Age: 73 years old Clinical indication: Low back pain; Prior surgery; Surgery date: 6+ months; Surgery type: Open heart/pacer TECHNIQUE: Imaging protocol: Radiologic exam of the lumbosacral spine. Views: 2 or 3 views. COMPARISON: CT abdomen pelvis wo con [id number] 10/14/2023 12:49 AM FINDINGS: Bones/joints: Mild broad-based convex left curvature of the lumbar spine centered at L2. Spinal alignment is normal in the sagittal plane. There is moderate diffuse lumbar disc degeneration. There is moderate lower lumbar facet spondylosis. The visible portion of the pelvis and sacrum is intact. Visible portions of the ribs are intact. Soft tissues: Visible soft tissues are unremarkable. Vasculature: Vascular stents are visible in the upper and lower abdomen. There is severe aortic atherosclerotic disease. XR/XR lumbar spine 2-3V* 73831 IMPRESSION: 1. No acute findings. 2. Moderate lower lumbar disc and facet degeneration. 3. Mild convex left lumbar scoliosis centered at L2. XR/XR chest 1V portable [id number] IMPRESSION: No acute findings. CT/CT abdomen pelvis wo con [id number] IMPRESSION: 1. No definitive evidence of acute intra-abdominal or pelvic process. 2. Small ascites, trace effusions, and anasarca. Correlate with fluid status/CHF. [address] [address] Ultrasound Report Signed Patient: Essie Alejandre Unit #: [id number] : 1950 Age/Sex: 73 / F ADM Date: 10/05/23 Loc: [facility] Room/Bed: [facility] Attending Dr: Paul Manuel MD Ordering Provider/Ordering MD: Paul Manuel MD Date of Service: 10/05/23 Procedure(s): CV. echo limited 70646 Accession Number(s): [id number] Report Number: [id number] Essie Alejandre Age: 73 Gender: F : 1950 Exam Date: 10/05/2023 19:57 Ordering Phys: Paul Manuel MD Technologist: ANDI [place] [facility] [place] patient presenting with weakness, SAMUEL, was seen our ER last week for same symptoms. BP: 148 / 97 HR: 69 Rhythm: Paced rhythm with Atrial fibrillation Technical Quality: Adequate MEASUREMENTS (Male / Female) Normal Values 2D ECHO LV Diastolic Diameter PLAX 5.3 cm 4.2 - 5.9 / 3.9 - 5.3 cm IVS Diastolic Thickness 1.1 cm 0.6 - 1.0 / 0.6 - 0.9 cm IVS Systolic Thickness 1.3 cm LVPW Diastolic Thickness 1.2 cm 0.6 - 1.0 / 0.6 - 0.9 cm LVPW Systolic Thickness 1.2 cm LVOT Diameter 1.6 cm LV Ejection Fraction 2D Teich 24.9 % LV Ejection Fraction MOD 2C 27.9 % LV Ejection Fraction 2C AL 25.8 % LA Diameter 5.0 cm LA Sys Volume AL 97.6 cm cubed LA Sys Volume Index AL 49.6 cm cubed/m squared Aorta at Sinotubular Diameter 2.5 cm IVC Diameter 2.5 cm M-MODE LA Ao Ratio MM 1.9 AV Cusp Separation MM 1.3 cm DOPPLER AV Peak Velocity 128.0 cm/s LVOT Peak Velocity 46.0 cm/s AV Area Cont Eq vti 0.8 cm squared AV Area Cont Eq pk 0.7 cm squared MV Peak Velocity 137.0 cm/s MV Area PHT 4.6 cm squared Mitral E to A Ratio 0.0 TV Peak Velocity 265.7 cm/s TR Peak Velocity 290.0 cm/s TR Peak Gradient 33.6 mmHg TV Peak E Velocity 73.0 cm/s Right Atrial Pressure 15.0 mmHg Pulmonary Artery Systolic Pressu 48.6 mmHg PV Peak Velocity 77.0 cm/s FINDINGS Left Ventricle The ventricle is mildly to moderately enlarged. There is global left ventricular hypokinesis. This is severe in nature. The ejection fraction is probably in the 30% range at most. Diastolic function cannot be determined due to the irregular rhythm. Right Ventricle The right ventricle is mildly enlarged and there is mild right ventricular hypokinesis.mild pulmonary hypertension, RVSP 48.6 mmHg. Right Atrium Moderately increased right atrial size. Left Atrium Moderately increased left atrial size. Mitral Valve Structurally normal mitral valve. Mild-moderate mitral valve regurgitation. Aortic Valve Structurally normal trileaflet aortic valve. No aortic valve stenosis. Mild aortic valve regurgitation. Tricuspid Valve Structurally normal tricuspid valve. Moderate tricuspid valve regurgitation. Pulmonic Valve Pulmonic valve not well visualized. Mild pulmonary valve regurgitation. Pericardium Normal pericardium without effusion. Aorta Normal ascending aorta dimension. IVC Severely dilated IVC. Dilated IVC with decreased respiratory variation. Right atrial pressure 15 mmHg. CONCLUSIONS The ventricle is mildly to moderately enlarged. There is global left ventricular hypokinesis. This is severe in nature. The ejection fraction is probably in the 30% range at most. Diastolic function cannot be determined due to the irregular rhythm. The right ventricle is mildly enlarged and there is mild right ventricular hypokinesis.mild pulmonary hypertension, RVSP 48.6 mmHg. Moderately increased right atrial size. Moderately increased left atrial size. Structurally normal mitral valve. Mild-moderate mitral valve regurgitation. Structurally normal trileaflet aortic valve. No aortic valve stenosis. Mild aortic valve regurgitation. Severely dilated IVC. Dilated IVC with decreased respiratory variation. Right atrial pressure 15 mmHg. The previous study was done 3 months ago. There appears to be a slight reduction in the left ventricular ejection fraction since then, however there is difficulty in comparing the 2 studies due to the technical difficulties. Otherwise, no change. A&P Assessment and plan (1) Staphylococcus aureus bacteremia: 73-year-old lady with multiple comorbidities as listed above currently admitted with Port-A-Cath infection, resulting MSSA bacteremia. Blood culture positive from October 12, eventually underwent port removal on October 15, 2023. No interval blood cultures available until October 20, 2023. These are thus far preliminarily negative to date. Discontinue ceftriaxone and vancomycin Change treatment to cefazolin 2 g IV every 8 hours for MSSA directed therapy. Total duration of antibiotics anticipated to be at least 6 weeks. Recommend to obtain TTE to evaluate for any vegetations. Most recent echocardiogram is from October 05, 2023 when patient was admitted for CHF exacerbation. She was noted to have global hypokinesia at that time with an EF of 30%. Valves were grossly noted to be structurally normal, mild to moderate mitral valve regurgitation was noted. Wait blood cultures to be clear for at least 48 to 72 hours prior to placement of PICC line. (2) Bloodstream infection due to Port-A-Cath: (3) Transaminitis: Increasing liver enzymes during course of admission. T. bili 5.1, AST 133, ALT 53, alkaline phosphatase 700. Liver enzymes have been uptrending during course of admission. Recommend to obtain CT of the abdomen and pelvis to assess for any interval development of hepatic abscess/secondary embolization from the bacteremia. Additionally patient has a recent history of cholecystectomy. CT will help assess for any surgical bed abscess which may potentially be an alternate source with MSSA bacteremia Consult Attestations Medical Necessity Statement: Per admitting attending Coding Level of Care Code Acute Code for Chg Fwd High MDM includes number and complexity of problems actively addressed during encounter, amount and/or complexity of data reviewed/ordered and described risk of complication, morbidity or mortality of management as documented Diagnoses Staphylococcus aureus bacteremia R78.81; B95.61 Bloodstream infection due to Port-A-Cath T80.211A Transaminitis R74.01
--- NOTE | 2023-10-21 07:49 | USCV_ITS ---
Essie Alejandre Age: 73 Gender: F : 1950 Exam Date: 10/21/2023 13:31 Ordering Phys: Cathleen Marquis MD Technologist: [place] [facility] [place]: poss vegetation BP: 132 / 82 HR: Rhythm: Sinus Technical Quality: Adequate MEASUREMENTS (Male / Female) Normal Values 2D ECHO LVOT Diameter 1.9 cm LV Ejection Fraction MOD 2C 19.0 % LV Ejection Fraction 2C AL 19.6 % LA Diameter 5.2 cm LA Sys Volume AL 87.2 cm cubed LA Sys Volume Index AL 43.2 cm cubed/m squared Aorta at Sinotubular Diameter 1.8 cm M-MODE LA Ao Ratio MM 2.1 AV Cusp Separation MM 1.7 cm FINDINGS Left Ventricle Severe diffuse hypokinesia of the left ventricule with an ejection fraction of 20% Right Ventricle Defibrillator/pacemaker wire on the right ventricle. Normal RV size with the slightly diminished ejection fraction Right Atrium Moderately increased right atrial size. Left Atrium Moderately increased left atrial size. Mitral Valve Thickened mitral valve. Aortic Valve Thickened aortic valve. Tricuspid Valve No gross abnormalities noted Pulmonic Valve No gross abnormalities noted Pericardium No pericardial effusion. Aorta Normal aortic annulus size. IVC Inferior vena cava not visualized. CONCLUSIONS Severe diffuse hypokinesia of the left ventricule with an ejection fraction of 20%. Moderate biatrial enlargement. Defibrillator/pacemaker wire in the event right atrium and ventricle Minimally thickened aortic and mitral valves. There is no pericardial effusion. No intracardiac or vegetations were noted . Compared to the study from 10/05/2023, the ejection fraction has decreased from 30% to 20% Dr Guhlam Allen MD [facility] (Electronically Signed) Final Date: 21 October 2023 20:43 S
--- NOTE | 2023-10-21 08:08 | CT_ITS ---
WS: [id number] CT ABDOMEN PELVIS TECHNIQUE: Contrast-enhanced CT of the abdomen and pelvis with coronal and sagittal reformatted image s. CLINICAL INFORMATION: elevated lft/bili/ r/o liver abscess, biliary stone COMPARISON: None. DLP: 658.[address] scans at [facility] use at least one of these dose optimization techniques: automated e xposure control; mA and/or kV adjustment per patient size (includes targeted exams where dose is matc hed to clinical indication); or iterative reconstruction. FINDINGS: Diffuse body wall anasarca. Estes catheter. Cardiomegaly. AICD. Sternotomy. Small bilateral pleural e ffusions with compressive atelectasis in the lung bases. Cirrhotic configuration to the liver with fatty infiltration. Normal GE junction. Adrenal glands are normal. Atrophic RIGHT kidney. No hydronephrosis in either kidney. Normal portal vein and splenic vei n. Pancreas appears normal. Adrenal glands are normal. Dense aortic calcification. Slightly aneurysma l distal abdominal aorta measuring 1.9 x 1.7 cm. Dense iliac calcification. Small amount of perihepatic and pelvic ascites. Sigmoid diverticulosis. No evidence of acute divertic ulitis. No evidence of small or large bowel obstruction. Disc osteophyte complex L4-5 with moderate c entral canal stenosis. CT/CT abdomen pelvis w con* [id number] IMPRESSION: 1. No evidence of liver abscess. 2. Prior cholecystectomy. 3. No intrahepatic biliary ductal dilatation. 4. Slightly cirrhotic configuration to the liver with fatty infiltration. 5. Diffuse body wall anasarca with mild pelvic ascites. Slight perihepatic asc ites. 6. Small bilateral pleural effusions with compressive atelectasis in the lung bases. 7. Atrophic RIGHT kidney.
--- NOTE | 2023-10-21 08:30 | P.PN_ITS ---
Subjective 2 Subjective: Is a 73-year-old female who is postoperative day 6 status post excision of Mediport for suspected wound infection. Patient is doing much better, no significant pain at the area of surgery, mental status has significantly improved. Continues to feel weak and has had minimal mobilization during hospital stay. Vitals/I&O/Wt Last Vital Signs Temp 98.5 F 10/21/23 07:43 Pulse 70 10/21/23 08:29 Resp 18 10/21/23 08:29 BP 150/72 10/21/23 07:43 Pulse Ox 95 10/21/23 08:29 O2 Del Method Room Air 10/21/23 08:29 O2 Flow Rate 2 10/17/23 07:40 10/20/23 10/21/23 10/21/23 22:59 06:59 14:59 Intake Total 730 / 1510 290 / 1800 Output Total 800 / 800 600 / 1400 Balance -70 / 710 -310 / 400 Weight last 48 hrs Weight 192 lb 1.6 oz Weight 186 lb 14.4 oz Physical Exam 2 Chest: OTHER: In the right upper chest surgical incision appears to be healing well, wound is dry there is no evidence of drainage or purulence both at the level of the wound or the needle insertion site in the supraclavicular region. Packing was replaced this morning. Urinary Catheter Management: Estes: Cath Placed During This Visit: yes Reason for Continuing Indwelling Catheter: Other Urinary Catheter Date of Insertion: 10/14/23 Urinary Catheter Time of Insertion: 22:15 Data 10/21/23 05:23 10/21/23 05:23 Micro: Microbiology 10/20/23 12:45 Blood Culture - Preliminary Blood SPECIMEN COLLECTED 10/20/23 12:20 Blood Culture - Preliminary Blood SPECIMEN COLLECTED 10/15/23 14:20 Gram Stain - Final Other Source Anaerobic Culture - Preliminary Wound Culture - Final Staphylococcus aureus A&P Assessment and plan (1) Sepsis: Qualifiers: Acute renal failure type: with other specified pathological lesion S epsis acute organ dysfunction status: with acute organ dysfunction Sepsis type: sepsis due to unspecified organism Severe sepsis acute organ dysfunction type: acute renal failure Severe sepsis shock status: without septic shock Qualified Code(s): A41.9 - Sepsis, unspecified organism; R65.20 - Severe sepsis without septic shock; N17.8 - Other acute kidney failure (2) Bloodstream infection due to Port-A-Cath: Plan Patient is showing good progression after excision of Medpor due to wound infection and sepsis. Wound is healing fine, wound care was done today. Wound care can be continued on a daily basis by nursing staff as instructed. Upon discharge patient can follow-up in the wound care clinic or can have home health do the daily dressing and 2 weeks after discharge she can follow in my office to ensure complete healing. Catheter tip cultures as well as wound cultures were consistent with a staph auris, patient is receiving guided antibiotic therapy by ID. Only consideration at this moment is that patient does have a pacemaker, medical team may continue investigation with the echocardiogram if blood cultures remain positive or if there is changes in the white count. From the general surgery standpoint, no additional intervention is recommended, we will sign off at this time but will remain available as needed. Attestations 2 Medical Necessity Statement*: Per medical team Coding Level of Care [facility] Diagn[facility] Sepsis A41.9; R65.20; N17.8 Acute renal failure type: with other specified pathological lesion Sepsis acute organ dysfunction status: with acute organ dysfunction Sepsis type: sepsis due to unspecified organism Severe sepsis acute organ dysfunction type: acute renal failure Severe sepsis shock status: without septic shock Bloodstream infection due to Port-A-Cath T80.211A
--- NOTE | 2023-10-21 09:25 | PC.SOCIAL ---
IMM Update pg 2 of IMM updated and reviewed w/ patient and her . Copy provided and copy dated, initialed and placed in chart.
[2023-10-21 09:33] LABS: Free T4 Free Thyroxine 1.53 ng/dL (0.82-1.77); T3 Free 2.1 PG/ML (2.0-4.4); Thyroid Stimulating Hormone 8.03 uIU/mL (0.27-4.20)
[2023-10-21] MEDS: iohexol 350 mg/mL 500 mL Btl (per mL) IV (09:43)
[2023-10-21] MEDS: atorvastatin 40 mg Tablet PO (10:20)
[2023-10-21] MEDS: allopurinol 100 mg Tablet 400 MG PO (10:20)
[2023-10-21] MEDS: apixaban 5 mg Tablet PO ×2 (10:20→21:29)
[2023-10-21] MEDS: lisinopril 10 mg Tablet 5 MG PO (10:20)
[2023-10-21] MEDS: ascorbic acid 500 mg Tablet PO (10:20)
[2023-10-21] MEDS: sertraline 100 mg Tablet PO (10:38)
[2023-10-21] MEDS: potassium chloride ER 20 mEq Tablet PO ×2 (10:48→21:29)
[2023-10-21] MEDS: bumetanide 0.25 mg/mL SDV 4 mL 1 MG IVP ×2 (10:55→21:30)
--- NOTE | 2023-10-21 18:45 | P.PN_ITS ---
Subjective 2 Subjective: Patient was seen this morning, she does report abdominal pain, but not more than the her usual abdominal pain, she does not appear jaundiced, scleral icterus, we discussed her hyperbilirubinemia, will order CT scan abdomen pelvis with IV contrast after discussion with infectious disease, based upon findings, will discuss with general surgery, and potentially GI at outside facility, patient and voiced understanding, all questions answered Vitals/I&O/Wt Last Vital Signs Temp 97.8 F 10/21/23 16:00 Pulse 83 10/21/23 16:00 Resp 16 10/21/23 16:00 BP 148/75 10/21/23 11:49 Pulse Ox 94 10/21/23 16:00 O2 Del Method Room Air 10/21/23 16:00 O2 Flow Rate 2 10/17/23 07:40 10/21/23 10/21/23 10/21/23 06:59 14:59 22:59 Intake Total 290 / 1800 410 / 410 Output Total 600 / 1400 Balance -310 / 400 410 / 410 Weight last 48 hrs Weight 87.135 kg Weight 84.776 kg Physical Exam 2 Const: COMMON NORMALS: no acute distress and patient oriented x3 Resp: COMMON NORMALS: normal respiratory effort, No retractions, No use of accessory muscles and clear to auscultation bilaterally AUSCULTATION: clear to auscultation bilaterally Cardio: COMMON NORMALS: regular rate, regular rhythm, S1 normal heart sound present and S2 normal heart sound present RATE: regular rate RHYTHM: r egular rhythm HEART SOUNDS: S1 normal heart sound present and S2 normal heart sound present GI: COMMON NORMALS: Normal to inspection, nondistended, normoactive bowel sounds present and non-tender Extremity: COMMON NORMALS: no pedal edema Neuro: COMMON NORMALS: patient oriented x3 Psych: COMMON NORMALS: mental status grossly normal Skin: NARRATIVE SKIN EXAM: Jaundice, scleral icterus Urinary Catheter Management: Estes: Cath Placed During This Visit: yes Reason for Continuing Indwelling Catheter: Other Urinary Catheter Date of Insertion: 10/14/23 Urinary Catheter Time of Insertion: 22:15 Data 10/21/23 05:23 10/21/23 05:23 Micro: Microbiology 10/15/23 14:20 Gram Stain - Final Other Source Anaerobic Culture - Preliminary Wound Culture - Final Staphylococcus aureus 10/20/23 12:45 Blood Culture - Preliminary Blood NEGATIVE TO DATE 10/20/23 12:20 Blood Culture - Preliminary Blood NEGATIVE TO DATE A&P Assessment and plan (1) Congestive heart failure: Qualifiers: Heart failure chronicity: acute on chronic Heart failure type: d iastolic Qualified Code(s): I50.33 - Acute on chronic diastolic (congestive) heart failure (2) Abdominal pain: (3) Recurrent UTI: (4) HTN (hypertension): Qualifiers: Hypertension type: primary hypertension Qualified Code(s): I10 - Essential (primary) hypertension (5) CAD (coronary artery disease): (6) Atrial fibrillation: (7) Gout: Qualifiers: Gout site: ankle Gout etiology: due to renal impairment Chronicity: c hronic Laterality: unspecified laterality Presence of tophus: without tophus Qualified Code(s): 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, unspecified ankle and foot, without tophus (tophi) (8) GERD (gastroesophageal reflux disease): (9) Anxiety: (10) Sepsis: Qualifiers: Acute renal failure type: with other specified pathological lesion S epsis acute organ dysfunction status: with acute organ dysfunction Sepsis type: sepsis due to unspecified organism Severe sepsis acute organ dysfunction type: acute renal failure Severe sepsis shock status: without septic shock Qualified Code(s): A41.9 - Sepsis, unspecified organism; R65.20 - Severe sepsis without septic shock; N17.8 - Other acute kidney failure (11) Acute on chronic renal insufficiency: (12) Staphylococcus aureus bacteremia: (13) Bloodstream infection due to Port-A-Cath: (14) Physical deconditioning: (15) History of pacemaker: Plan Staph aureus bacteremia, Mediport staph infection ? Initial set of blood cultures positive for Staph aureus -catheter tip culture positive for Staph aureus ? Chest wound cultures positive for Staph aureus ? Status post Mediport removal ? Plan ? Repeat blood cultures are pending, negative so far ? Antibiotic therapy has been tailored to cefazolin, will need a total of 6 weeks from negative blood culture ? Infectious disease consulted ? Patient does have a pacemaker in place, limited echo ordered New onset hematuria in spite of improved platelet-likely UTI, has Estes catheter in place Resolved UA with evidence of UTI Hold Plavix Resume Eliquis for now. Will monitor Thrombocytopenia Associated with Protonix, ? Monitor Jaundice, scleral icterus, with hyperbilirubinemia, elevated LFTs, elevated alk phos -Liver ultrasound shows morphologic features suggesting liver cirrhosis - liver function studies my monitoring ? Order CT scan abdomen pelvis with IV contrast ? CT/CT abdomen pelvis w con* [id number] IMPRESSION: 1. No evidence of liver abscess. 2. Prior cholecystectomy. 3. No intrahepatic biliary ductal dilatation. 4. Slightly cirrhotic configuration to the liver with fatty infiltration. 5. Diffuse body wall anasarca with mild pelvic ascites. Slight perihepatic ascites. 6. Small bilateral pleural effusions with compressive atelectasis in the lung bases. 7. Atrophic RIGHT kidney -cannot do mrcp given pacemaker -Given patient's persistent hyperbilirubinemia, elevated alk phos, LFTs, and recent cholecystectomy, etiology concerning for biliary injury vs biliary stricture vs ampula federica dysfunction vs cholestatic jaundice ? Spoke to general surgery, Dr. Amaya, patient in August had a cholecystectomy, recommended consultation with GI ? Spoke to hepatobiliary at [facility], recommended medical management, with out patient follow up Physical deconditioning, protein calorie malnutrition ? PT OT ? Protein shakes twice daily Back pain ? X-ray thoracic and lumbar spine (1) Sepsis: Resolved leukocytosis resolved Clinically improving and looks much better as compared to admission Source: Likely secondary to Mediport site infection s/p Mediport removal Continue IV vancomycin since blood cultures, catheter report culture and wound culture showed coagulase positive Staph aureus Off Levophed, maintaining systolic blood pressure in 120s Supportive care and wound care (2) BERNADETTE (acute kidney injury): BERNADETTE on CKD stage II, creatinine 0.5 today Discontinue lactated Ringer (3) Congestive heart failure: Currently in exacerbation Heart failure with reduced ejection Status post IV fluid boluses in ED, she is very high risk for CHF exacerbation Continue beta srikanth Last 2D echo showed EF of 41%, with global hypokinesia Has evidence of fluid overload 2+ pitting edema Bumex 1 mg twice daily today, for 2 doses, monitor urine output, monitor creatinine (4) HTN (hypertension): (5) CAD (coronary artery disease): Held plavix (6) Atrial fibrillation: apixaban (7) Gout: Start allopurinol for now (8) GERD (gastroesophageal reflux disease): Will do Maalox 30 mL every 6 hours as needed (9) Anxiety: Continue home Xanax Continue home SSRI Cardiac diet DVT prophylaxis: Apixaban CODE STATUS: Full code Will require halfway placement Attestations 2 Medical Necessity Statement*: Patient requires hospitalization for Staph aureus bacteremia, with jaundice, hyperbilirubinemia, spoke to patient, spoke to nursing staff, spoke to general surgery, spoke to hepatobiliary at [place] Diagnoses Acute on chronic diastolic congestive heart failure I50.33 Heart failure chronicity: acute on chronic Heart failure type: diastolic Abdominal pain R10.9 Recurrent UTI N39.0 Primary hypertension I10 Hypertension type: primary hypertension CAD (coronary artery disease) I25.10 Atrial fibrillation I48.91 Chronic gout due to renal impairment involving ankle without tophus, unspecified laterality M1A.3790 Gout site: ankle Gout etiology: due to renal impairment Chronicity: chronic Laterality: unspecified laterality Presence of tophus: without tophus GERD (gastroesophageal reflux disease) K21.9 Anxiety F41.9 Sepsis A41.9; R65.20; N17.8 Acute renal failure type: with other specified pathological lesion Sepsis acute organ dysfunction status: with acute organ dysfunction Sepsis type: sepsis due to unspecified organism Severe sepsis acute organ dysfunction type: acute renal failure Severe sepsis shock status: without septic shock Acute on chronic renal insufficiency N28.9; N18.9 Staphylococcus aureus bacteremia R78.81; B95.61 Bloodstream infection due to Port-A-Cath T80.211A Physical deconditioning R53.81 History of pacemaker Z95.0
[2023-10-21] MEDS: ALPRAZolam 0.5 mg Tablet PO (21:29)
[2023-10-22] VITALS (8 sets, daily range): BP systolic 125–153; BP diastolic 66–77; PULSE 67–71; RESP 19–26; TEMP 36.3–36.7; O2SAT 93–96
[2023-10-22] MEDS: ceFAZolin 2,000 MG in sodium chloride 0.9% (plus) 50 ML 100 MG IV ×3 (04:00→19:44)
[2023-10-22] MEDS: HYDROcodone-acetaminophen 5-325 mg Tablet 1 TAB PO ×2 (04:07→19:44)
[2023-10-22 05:54] LABS: Basophils # 0.1 10^3/uL (0.0-0.1); Basophils % 0.4 %; Eosinophils # 0.1 10^3/uL (0.0-0.8); Eosinophils % 0.7 %; Hematocrit 33.3 % (36-47); Lymphocytes # 1.1 10^3/uL (0.8-4.8); Lymphocytes % 6.5 %; Mean Corpuscular HGB Conc 31.2 g/dL (30-55); Mean Corpuscular Hemoglobin 30.7 pg (27-33); Mean Corpuscular Volume 98.2 fl (85-98); Mean Platelet Volume 11.6 fL (7.4-10.4); Monocytes # 0.8 10^3/uL (0.2-0.9); Neutrophils # 14.37 10^3/uL (1.8-7.7); Neutrophils % 85.4 %; Nucleated Red Blood Cells % 0 %; Platelet Count 180 10^3/cmm (157-399); Red Blood Count 3.39 10^6/uL (3.85-5.65); Red Cell Distribution Width 18.3 % (12.1-15.1); White Blood Count 16.81 10^3/uL (3.29-11.43)
[2023-10-22 06:15] LABS: Alanine Aminotransferase 31 U/L (0-33); Albumin Level 2.7 g/dL (3.5-5.2); Alkaline Phosphatase 640 U/L (35-105); Aspartate Amino Transferase 91 U/L (0-32); Blood Urea Nitrogen 28 mg/dL (8-23); C Reactive Protein 99.2 mg/L (0.0-4.9); Calcium 8.5 mg/dL (8.5-10.5); Carbon Dioxide 22 mmol/L (22-29); Chloride 100 mmol/L (98-107); Creatinine Clr Calc Pharmacy 39.5243; Globulin 3.3 g/dL (1.3-4.6); Glucose 99 mg/dL (65-115); NT Pro B Type Natriuretic Pept 30091 pg/mL (0-125); Osmolality Calculated 286 mOsm/kg (285-295); Sodium 135 mmol/L (136-145); Total Bilirubin 3.6 mg/dL (0.15-1.2)
--- NOTE | 2023-10-22 08:03 | ECG_ITS ---
[facility] Test Date: 2023-10-22 Pat Name: Essie Alejandre Department: Room: 258 Gender: Female Pattern Weaver: : 1950 Requested By: Ish Loya Order Number: [id number] Jj MD: Kel Molina M.D. Measurements Intervals [place] Rate: 71 P: 0 CO: 0 QRS: -71 QRSD: 149 T: 113 QT: 484 QTc: 527 Interpretive Statements ELECTRONIC VENTRICULAR PACEMAKER Compared to ECG 10/14/2023 22:04:04 No significant changes Electronically Signed On 10-22-2023 21:33:24 CDT by Kel Molina M.D. [id number]
[2023-10-22] MEDS: sertraline 100 mg Tablet PO (09:09)
[2023-10-22] MEDS: allopurinol 100 mg Tablet 400 MG PO (09:09)
[2023-10-22] MEDS: apixaban 5 mg Tablet PO ×2 (09:10→20:29)
[2023-10-22] MEDS: lisinopril 10 mg Tablet 5 MG PO (09:10)
[2023-10-22] MEDS: clopidogrel 75 mg Tablet PO (09:10)
[2023-10-22] MEDS: atorvastatin 40 mg Tablet PO (09:10)
--- NOTE | 2023-10-22 10:03 | ECG_ITS ---
[facility] Test Date: 2023-10-22 Pat Name: Essie Alejandre Department: Room: 258 Gender: Female Medication Manager: : 1950 Requested By: Ish Loya Order Number: [id number] Jj MD: Kel Molina M.D. Measurements Intervals [place] Rate: 73 P: 0 IA: 0 QRS: -67 QRSD: 159 T: 102 QT: 469 QTc: 519 Interpretive Statements ELECTRONIC VENTRICULAR PACEMAKER Compared to ECG 10/14/2023 22:04:04 No significant changes Electronically Signed On 10-22-2023 21:36:48 CDT by Kel Molina M.D. [id number]
[2023-10-22 10:38] LABS: Troponin(5th) Baseline 101 ng/L (0-10)
--- NOTE | 2023-10-22 10:39 | PC.PT ---
Patient refused x3. I kept attempting to treat patinet but patient continued to say that she needed to eat. On the 3rd attempt, she did not have a bowl of food in hand but then picked on up and said Im eating and I need a reprieve. She refused therapy again despite education.
[2023-10-22] MEDS: bumetanide 0.25 mg/mL SDV 4 mL 1 MG IVP (12:18)
[2023-10-22 13:20] LABS: Troponin 5 2HR Delta 0.9 ABS# (0-10)
[2023-10-22 13:23] LABS: Troponin 5 2HR 101.9 ng/L (0-10)
--- NOTE | 2023-10-22 14:14 | ECG_ITS ---
[facility] Test Date: 2023-10-22 Pat Name: Essie Alejandre Department: Room: 258 Gender: Female Access Analyst: : 1950 Requested By: Ish Loya Order Number: [id number] Gardner MD: Kel Molina M.D. Measurements Intervals [place] Rate: 70 P: 0 MD: 0 QRS: -67 QRSD: 154 T: 93 QT: 465 QTc: 505 Interpretive Statements ELECTRONIC VENTRICULAR PACEMAKER Compared to ECG 10/22/2023 11:07:52 No significant changes Electronically Signed On 10-22-2023 21:36:09 CDT by Kel Molina M.D. [id number]
--- NOTE | 2023-10-22 14:30 | P.PN_ITS ---
Subjective 2 Subjective: Patient was seen this morning, I also spoke to patient's on speaker phone while patient was present, she tells me that she did not sleep get much sleep overnight, denies any chest pain, no shortness of breath does report fatigue, malaise, currently on room air, normotensive, I had a detailed discussion with her about her CT abdomen findings, no liver abscess, no evidence of intra extrahepatic biliary dilatation, I discussed my discussion with general surgery and then hepatobiliary Hernandez, they recommended medical management for now monitoring her liver function and having her follow-up with GI as outpatient, I also had a detailed discussion with her about her echocardiogram findings and her diminished ejection fraction down to 20%, she denies any chest pain, will continue to monitor, she will need to follow-up with cardiology as outpatient, she recently had a stress test, she has had a CABG, she had a cath in 2022, we discussed all the findings, agreed male for medical management Vitals/I&O/Wt Last Vital Signs Temp 97.5 F L 10/22/23 12:00 Pulse 70 10/22/23 12:00 Resp 22 H 10/22/23 08:57 BP 125/68 10/22/23 12:00 Pulse Ox 94 10/22/23 12:00 O2 Del Method Room Air 10/22/23 12:00 O2 Flow Rate 2 10/17/23 07:40 10/21/23 10/22/23 10/22/23 22:59 06:59 14:59 Intake Total 50 / 460 50 / 510 220 / 220 Output Total 1150 / 1150 Balance 50 / 460 -1100 / -640 220 / 220 Weight last 48 hrs Weight 84.323 kg Weight 87.135 kg Physical Exam 2 Const: COMMON NORMALS: no acute distress and patient oriented x3 Resp: COMMON NORMALS: normal respiratory effort, No retractions, No use of accessory muscles and clear to auscultation bilaterally AUSCULTATION: clear to auscultation bilaterally Cardio: COMMON NORMALS: regular rate, regular rhythm, S1 normal heart sound present and S2 normal heart sound present RATE: regular rate RHYTHM: r egular rhythm HEART SOUNDS: S1 normal heart sound present and S2 normal heart sound present GI: COMMON NORMALS: Normal to inspection, nondistended, normoactive bowel sounds present and non-tender Extremity: COMMON NORMALS: no pedal edema Neuro: COMMON NORMALS: patient oriented x3 Psych: COMMON NORMALS: mental status grossly normal Urinary Catheter Management: Estes: Cath Placed During This Visit: yes Reason for Continuing Indwelling Catheter: Other Urinary Catheter Date of Insertion: 10/14/23 Urinary Catheter Time of Insertion: 22:15 Data 10/22/23 05:34 10/22/23 05:34 Micro: Microbiology 10/15/23 14:20 Gram Stain - Final Other Source Anaerobic Culture - Final Wound Culture - Final Staphylococcus aureus 10/20/23 17:15 Urine Culture - Preliminary Urine,Clean Catch 10/20/23 12:45 Blood Culture - Preliminary Blood NEGATIVE TO DATE 10/20/23 12:20 Blood Culture - Preliminary Blood NEGATIVE TO DATE A&P Assessment and plan (1) Congestive heart failure: Qualifiers: Heart failure chronicity: acute on chronic Heart failure type: d iastolic Qualified Code(s): I50.33 - Acute on chronic diastolic (congestive) heart failure (2) Abdominal pain: (3) Recurrent UTI: (4) HTN (hypertension): Qualifiers: Hypertension type: primary hypertension Qualified Code(s): I10 - Essential (primary) hypertension (5) CAD (coronary artery disease): (6) Atrial fibrillation: (7) Gout: Qualifiers: Gout site: ankle Gout etiology: due to renal impairment Chronicity: c hronic Laterality: unspecified laterality Presence of tophus: without tophus Qualified Code(s): 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, unspecified ankle and foot, without tophus (tophi) (8) GERD (gastroesophageal reflux disease): (9) Anxiety: (10) Sepsis: Qualifiers: Acute renal failure type: with other specified pathological lesion S epsis acute organ dysfunction status: with acute organ dysfunction Sepsis type: sepsis due to unspecified organism Severe sepsis acute organ dysfunction type: acute renal failure Severe sepsis shock status: without septic shock Qualified Code(s): A41.9 - Sepsis, unspecified organism; R65.20 - Severe sepsis without septic shock; N17.8 - Other acute kidney failure (11) Acute on chronic renal insufficiency: (12) Staphylococcus aureus bacteremia: (13) Bloodstream infection due to Port-A-Cath: (14) Physical deconditioning: (15) History of pacemaker: (16) NSTEMI (non-ST elevated myocardial infarction): Plan Staph aureus bacteremia, Mediport staph infection ? Initial set of blood cultures positive for Staph aureus -catheter tip culture positive for Staph aureus ? Chest wound cultures positive for Staph aureus ? Status post Mediport removal ? Plan ? Repeat blood cultures are pending, negative so far ? Antibiotic therapy has been tailored to cefazolin, will need a total of 6 weeks from negative blood culture ? Infectious disease consulted ? Patient does have a pacemaker in place, limited echo ordered New onset hematuria in spite of improved platelet-likely UTI, has Estes catheter in place Resolved UA with evidence of UTI Resume Eliquis and Plavix for now. Will monitor Thrombocytopenia Associated with Protonix, ? Monitor Jaundice, scleral icterus, with hyperbilirubinemia, elevated LFTs, elevated alk phos -Liver ultrasound shows morphologic features suggesting liver cirrhosis - liver function studies my monitoring ? Ordere CT scan abdomen pelvis with IV contrast ? CT/CT abdomen pelvis w con* [id number] IMPRESSION: 1. No evidence of liver abscess. 2. Prior cholecystectomy. 3. No intrahepatic biliary ductal dilatation. 4. Slightly cirrhotic configuration to the liver with fatty infiltration. 5. Diffuse body wall anasarca with mild pelvic ascites. Slight perihepatic ascites. 6. Small bilateral pleural effusions with compressive atelectasis in the lung bases. 7. Atrophic RIGHT kidney -cannot do mrcp given pacemaker -Given patient's persistent hyperbilirubinemia, elevated alk phos, LFTs, and recent cholecystectomy, etiology concerning for biliary injury vs biliary stricture vs ampula federica dysfunction vs cholestatic jaundice ? Spoke to general surgery, Dr. Amaya, patient in August had a cholecystectomy, recommended consultation with GI ? Spoke to hepatobiliary at [facility] in [place], recommended medical management, no acute interventions, with out patient follow up NSTEMI ? Type I versus type II ? No chest pain complaints, ? Cath in 2022 showed ?Conclusions 1. Critical in-stent restenosis of 2. SVG to diagonal artery prior stent. Status post successful revascularization with balloon angioplasty. Severe stenosis of SVG to diagonal artery proximal to prior stent. S/p successful revascularization with 1 stent.. 3. Patient has prior CABG. ? Stress test in September 2023 IMPRESSIONS 1. Abnormal myocardial perfusion imaging with large areas of prior infarct with minimal jodi-infarct ischemia seen in all 3 coronary artery territories. 2. LV systolic function is moderately reduced with EF of 41%. ? Echocardiogram CONCLUSIONS Severe diffuse hypokinesia of the left ventricule with an ejection fraction of 20%. Moderate biatrial enlargement. Defibrillator/pacemaker wire in the event right atrium and ventricle Minimally thickened aortic and mitral valves. There is no pericardial effusion. No intracardiac or vegetations were noted . Compared to the study from 10/05/2023, the ejection fraction has decreased from 30% to 20% ? Plan ? Spoke to cardiology, recommended medical management ? Continue Plavix ? Continue Eliquis, ? Continue telemetry monitoring ? Monitor for chest pain Physical deconditioning, protein calorie malnutrition ? PT OT ? Protein shakes twice daily Sepsis: Resolved leukocytosis resolved Clinically improving and looks much better as compared to admission Source: Likely secondary to Mediport site infection s/p Mediport removal Continue IV vancomycin since blood cultures, catheter report culture and wound culture showed coagulase positive Staph aureus Off Levophed, maintaining systolic blood pressure in 120s Supportive care and wound care (2) BERNADETTE (acute kidney injury): BERNADETTE on CKD stage II, creatinine 0.5 today Discontinue lactated Ringer (3) Congestive heart failure: Currently in exacerbation Heart failure with reduced ejection Status post IV fluid boluses in ED, she is very high risk for CHF exacerbation Continue beta srikanth Echocardiogram shows EF of 20% 1+ pitting edema 1 dose of Bumex today (4) HTN (hypertension): (5) CAD (coronary artery disease): Held plavix (6) Atrial fibrillation: apixaban (7) Gout: Start allopurinol for now (8) GERD (gastroesophageal reflux disease): Will do Maalox 30 mL every 6 hours as needed (9) Anxiety: Continue home Xanax Continue home SSRI Cardiac diet DVT prophylaxis: Apixaban CODE STATUS: Full code Will require usp placement Spoke to cardiology, 1 dose of Bumex, monitor for chest pain, continue cefazolin follow repeat blood cultures, monitor liver function studies Attestations 2 Medical Necessity Statement*: Patient requires hospitalization, for NSTEMI, hyperbilirubinemia, Staph aureus bacteremia Diagnoses Acute on chronic diastolic congestive heart failure I50.33 Heart failure chronicity: acute on chronic Heart failure type: diastolic Abdominal pain R10.9 Recurrent UTI N39.0 Primary hypertension I10 Hypertension type: primary hypertension CAD (coronary artery disease) I25.10 Atrial fibrillation I48.91 Chronic gout due to renal impairment involving ankle without tophus, unspecified laterality M1A.3790 Gout site: ankle Gout etiology: due to renal impairment Chronicity: chronic Laterality: unspecified laterality Presence of tophus: without tophus GERD (gastroesophageal reflux disease) K21.9 Anxiety F41.9 Sepsis A41.9; R65.20; N17.8 Acute renal failure type: with other specified pathological lesion Sepsis acute organ dysfunction status: with acute organ dysfunction Sepsis type: sepsis due to unspecified organism Severe sepsis acute organ dysfunction type: acute renal failure Severe sepsis shock status: without septic shock Acute on chronic renal insufficiency N28.9; N18.9 Staphylococcus aureus bacteremia R78.81; B95.61 Bloodstream infection due to Port-A-Cath T80.211A Physical deconditioning R53.81 History of pacemaker Z95.0 NSTEMI (non-ST elevated myocardial infarction) I21.4
[2023-10-22 15:00] LABS: C.Diff PCR (Lab) NEGATIVE (Negative)
[2023-10-22 16:09] LABS: Troponin 5 6HR Delta 3.9 ng/L (0-12)
[2023-10-22 16:52] LABS: Troponin 5 6HR 104.9 ng/L (0-10)
[2023-10-23] VITALS (9 sets, daily range): BP systolic 122–160; BP diastolic 7–82; PULSE 69–78; RESP 17–19; TEMP 36.4–36.7; O2SAT 93–95
[2023-10-23] MEDS: ceFAZolin 2,000 MG in sodium chloride 0.9% (plus) 50 ML 100 MG IV ×2 (04:29→20:24)
[2023-10-23 05:42] LABS: Basophils # 0.1 10^3/uL (0.0-0.1); Basophils % 0.5 %; Eosinophils # 0.2 10^3/uL (0.0-0.8); Eosinophils % 1.2 %; Hematocrit 32.4 % (36-47); Lymphocytes # 1.2 10^3/uL (0.8-4.8); Mean Corpuscular HGB Conc 31.5 g/dL (30-55); Mean Corpuscular Hemoglobin 30.9 pg (27-33); Mean Corpuscular Volume 98.2 fl (85-98); Mean Platelet Volume 11.2 fL (7.4-10.4); Monocytes % 6.1 %; Neutrophils # 14.19 10^3/uL (1.8-7.7); Neutrophils % 83.8 %; Nucleated Red Blood Cells % 0 %; Platelet Count 176 10^3/cmm (157-399); Red Cell Distribution Width 18.4 % (12.1-15.1); White Blood Count 16.94 10^3/uL (3.29-11.43)
[2023-10-23 06:16] LABS: Alanine Aminotransferase 7 U/L (0-33); Albumin Level 2.5 g/dL (3.5-5.2); Alkaline Phosphatase 583 U/L (35-105); Aspartate Amino Transferase 74 U/L (0-32); Blood Urea Nitrogen 30 mg/dL (8-23); C Reactive Protein 91.2 mg/L (0.0-4.9); Calcium 8.2 mg/dL (8.5-10.5); Carbon Dioxide 22 mmol/L (22-29); Chloride 97 mmol/L (98-107); Creatinine Clr Calc Pharmacy 32.4712; Globulin 3.3 g/dL (1.3-4.6); Glucose 96 mg/dL (65-115); Osmolality Calculated 286 mOsm/kg (285-295); Sodium 135 mmol/L (136-145); Total Bilirubin 2.6 mg/dL (0.15-1.2); Total Protein 5.8 g/dL (6.6-8.7)
[2023-10-23 06:17] LABS: NT Pro B Type Natriuretic Pept 33306 pg/mL (0-125)
--- NOTE | 2023-10-23 06:51 | USR_ITS ---
PROCEDURE INFORMATION: Exam: US Duplex Right upper Extremity Veins, Limited Exam date and time: 10/23/2023 8:35 AM Age: 73 years old Clinical indication: Screening exam; Additional info: Evaluate for dvt TECHNIQUE: Imaging protocol: Real-time duplex ultrasound of the right extremity with 2-D david scale, color Doppler flow and spectral waveform analysis including responses to compression and other maneuvers (when performed) with image documentation. Limited exam was focused on the right lower extremity veins. COMPARISON: US renal BI* [id number] 04/15/2023 11:20 AM FINDINGS: Right deep veins: Unremarkable. The common femoral, femoral, proximal profunda femoral and popliteal veins are patent without thrombus. Normal Doppler waveforms. Normal compressibility and/or augmentation response. Superficial veins: Right cephalic vein occlusive thrombus Soft tissues: Unremarkable. US/[place] [id number] IMPRESSION: 1. No findings of right upper extremity deep venous thrombosis 2. Right cephalic vein occlusive thrombosis.
[2023-10-23] MEDS: atorvastatin 40 mg Tablet PO (09:03)
[2023-10-23] MEDS: sertraline 100 mg Tablet PO (09:03)
[2023-10-23] MEDS: lisinopril 10 mg Tablet 5 MG PO (09:03)
[2023-10-23] MEDS: allopurinol 100 mg Tablet 400 MG PO (09:03)
[2023-10-23] MEDS: clopidogrel 75 mg Tablet PO (09:03)
[2023-10-23 10:11] LABS: Partial Thromboplastin Time 56.2 SECONDS (23.9-36.7)
[2023-10-23] MEDS: heparin drip 25,000 UNIT/500 ML PREMIX 23.5 UNIT IV (10:37)
[2023-10-23] MEDS: heparin 5,000 unit/mL INJ 1 mL IV (10:39)
[2023-10-23] MEDS: metoprolol tartrate 25 mg Tablet 12.5 MG PO ×2 (13:56→23:56)
--- NOTE | 2023-10-23 14:06 | PM.PN ---
Subjective Subjective: Patient was seen this morning, she denies any fevers, no chills, no lightheadedness, no dizziness, she had an episode of nonsustained V. tach overnight, denies any chest pain or any palpitations this morning, she does complain of right upper extremity swelling, she is receiving a venous ultrasound Vitals/I&O/Wt Last Vital Signs Temp 97.6 F 10/23/23 11:54 Pulse 78 10/23/23 11:54 Resp 18 10/23/23 11:54 BP 160/82 10/23/23 11:54 Pulse Ox 95 10/23/23 11:54 O2 Del Method Room Air 10/23/23 11:54 O2 Flow Rate 2 10/17/23 07:40 10/22/23 10/23/23 10/23/23 22:59 06:59 14:59 Intake Total 90 / 310 50 / 360 Output Total 30 / 30 200 / 230 Balance 60 / 280 -150 / 130 Weight last 48 hrs Weight 83.915 kg Weight 84.323 kg Physical Exam Const: COMMON NORMALS: no acute distress and patient oriented x3 Resp: COMMON NORMALS: normal respiratory effort, No retractions, No use of accessory muscles and clear to auscultation bilaterally AUSCULTATION: clear to auscultation bilaterally Cardio: COMMON NORMALS: regular rate, regular rhythm, S1 normal heart sound present and S2 normal heart sound present RATE: regular rate RHYTHM: regular rhythm HEART SOUNDS: S1 normal heart sound present and S2 normal heart sound present GI: COMMON NORMALS: Normal to inspection, nondistended, normoactive bowel sounds present and non-tender Extremity: COMMON NORMALS: no pedal edema Neuro: COMMON NORMALS: patient oriented x3 Psych: COMMON NORMALS: mental status grossly normal Urinary Catheter Management: Estes: Cath Placed During This Visit: yes Reason for Continuing Indwelling Catheter: Accurate Measurement of Urinary Output in Critically Ill Patients Urinary Catheter Date of Insertion: 10/14/23 Urinary Catheter Time of Insertion: 22:15 Data 10/23/23 05:29 10/23/23 05:29 Micro: Microbiology 10/20/23 17:15 Urine Culture - Final Urine,Clean Catch 10/15/23 14:20 Gram Stain - Final Other Source Anaerobic Culture - Final Wound Culture - Final Staphylococcus aureus A&P Assessment and plan (1) Congestive heart failure: Qualifiers: Heart failure chronicity: acute on chronic Heart failure type: diastolic Qualified Code(s): I50.33 - Acute on chronic diastolic (congestive) heart failure (2) Abdominal pain: (3) Recurrent UTI: (4) HTN (hypertension): Qualifiers: Hypertension type: primary hypertension Qualified Code(s): I10 - Essential (primary) hypertension (5) CAD (coronary artery disease): (6) Atrial fibrillation: (7) Gout: Qualifiers: Gout site: ankle Gout etiology: due to renal impairment Chronicity: chronic Laterality: unspecified laterality Presence of tophus: without tophus Qualified Code(s): 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, unspecified ankle and foot, without tophus (tophi) (8) GERD (gastroesophageal reflux disease): (9) Anxiety: (10) Sepsis: Qualifiers: Acute renal failure type: with other specified pathological lesion Sepsis acute organ dysfunction status: with acute organ dysfunction Sepsis type: sepsis due to unspecified organism Severe sepsis acute organ dysfunction type: acute renal failure Severe sepsis shock status: without septic shock Qualified Code(s): A41.9 - Sepsis, unspecified organism; R65.20 - Severe sepsis without septic shock; N17.8 - Other acute kidney failure (11) Acute on chronic renal insufficiency: (12) Staphylococcus aureus bacteremia: (13) Bloodstream infection due to Port-A-Cath: (14) Physical deconditioning: (15) History of pacemaker: (16) NSTEMI (non-ST elevated myocardial infarction): Plan Staph aureus bacteremia, Mediport staph infection ? Initial set of blood cultures positive for Staph aureus -catheter tip culture positive for Staph aureus ? Chest wound cultures positive for Staph aureus ? Status post Mediport removal ? Plan ? Repeat blood cultures are pending, negative so far ? Antibiotic therapy has been tailored to cefazolin, will need a total of 6 weeks from negative blood culture ? Infectious disease consulted ? Patient does have a pacemaker in place, limited echo ordered New onset hematuria in spite of improved platelet-likely UTI, has Estes catheter in place Resolved UA with evidence of UTI Resume Eliquis and Plavix for now. Will monitor Thrombocytopenia Associated with Protonix, ? Monitor Jaundice, scleral icterus, with hyperbilirubinemia, elevated LFTs, elevated alk phos -Liver ultrasound shows morphologic features suggesting liver cirrhosis - liver function studies my monitoring ? Ordere CT scan abdomen pelvis with IV contrast ? CT/CT abdomen pelvis w con* [id number] IMPRESSION: 1. No evidence of liver abscess. 2. Prior cholecystectomy. 3. No intrahepatic biliary ductal dilatation. 4. Slightly cirrhotic configuration to the liver with fatty infiltration. 5. Diffuse body wall anasarca with mild pelvic ascites. Slight perihepatic ascites. 6. Small bilateral pleural effusions with compressive atelectasis in the lung bases. 7. Atrophic RIGHT kidney -cannot do mrcp given pacemaker -Given patient's persistent hyperbilirubinemia, elevated alk phos, LFTs, and recent cholecystectomy, etiology concerning for biliary injury vs biliary stricture vs ampula federica dysfunction vs cholestatic jaundice ? Spoke to general surgery, Dr. Amaya, patient in August had a cholecystectomy, recommended consultation with GI ? Spoke to hepatobiliary at [facility] in [place], recommended medical management, no acute interventions, with out patient follow up NSTEMI ? Type I versus type II ? No chest pain complaints, ? Cath in 2022 showed ?Conclusions 1. Critical in-stent restenosis of 2. SVG to diagonal artery prior stent. Status post successful revascularization with balloon angioplasty. Severe stenosis of SVG to diagonal artery proximal to prior stent. S/p successful revascularization with 1 stent.. 3. Patient has prior CABG. ? Stress test in September 2023 IMPRESSIONS 1. Abnormal myocardial perfusion imaging with large areas of prior infarct with minimal jodi-infarct ischemia seen in all 3 coronary artery territories. 2. LV systolic function is moderately reduced with EF of 41%. ? Echocardiogram CONCLUSIONS Severe diffuse hypokinesia of the left ventricule with an ejection fraction of 20%. Moderate biatrial enlargement. Defibrillator/pacemaker wire in the event right atrium and ventricle Minimally thickened aortic and mitral valves. There is no pericardial effusion. No intracardiac or vegetations were noted . Compared to the study from 10/05/2023, the ejection fraction has decreased from 30% to 20% ? Plan ? Spoke to cardiology, recommended medical management ? Continue Plavix ? Continue Eliquis, ? Continue telemetry monitoring ? Monitor for chest pain Physical deconditioning, protein calorie malnutrition ? PT OT ? Protein shakes twice daily Sepsis: Resolved leukocytosis resolved Clinically improving and looks much better as compared to admission Source: Likely secondary to Mediport site infection s/p Mediport removal Continue IV vancomycin since blood cultures, catheter report culture and wound culture showed coagulase positive Staph aureus Off Levophed, maintaining systolic blood pressure in 120s Supportive care and wound care (2) BERNADETTE (acute kidney injury): BERNADETTE on CKD stage II, creatinine 1.7 today, hold off on diuresis Discontinue lactated Ringer (3) Congestive heart failure: Currently in exacerbation Heart failure with reduced ejection Status post IV fluid boluses in ED, she is very high risk for CHF exacerbation Continue beta srikanth Echocardiogram shows EF of 20% Nonpitting edema Hold off on Lasix (4) HTN (hypertension): (5) CAD (coronary artery disease): Held plavix (6) Atrial fibrillation: apixaban (7) Gout: Start allopurinol for now (8) GERD (gastroesophageal reflux disease): Will do Maalox 30 mL every 6 hours as needed (9) Anxiety: Continue home Xanax Continue home SSRI Cardiac diet DVT prophylaxis: Apixaban CODE STATUS: Full code Will require longterm placement Spoke to cardiology hold off on Lasix, right upper extremity ultrasound continue IV antibiotics, creatinine up to 1 point 7 repeat kidney function this afternoon Attestations Medical Necessity Statement*: Patient requires hospitalization for Staph aureus bacteremia, BERNADETTE Diagnoses Acute on chronic diastolic congestive heart failure I50.33 Heart failure chronicity: acute on chronic Heart failure type: diastolic Abdominal pain R10.9 Recurrent UTI N39.0 Primary hypertension I10 Hypertension type: primary hypertension CAD (coronary artery disease) I25.10 Atrial fibrillation I48.91 Chronic gout due to renal impairment involving ankle without tophus, unspecified laterality M1A.3790 Gout site: ankle Gout etiology: due to renal impairment Chronicity: chronic Laterality: unspecified laterality Presence of tophus: without tophus GERD (gastroesophageal reflux disease) K21.9 Anxiety F41.9 Sepsis A41.9; R65.20; N17.8 Acute renal failure type: with other specified pathological lesion Sepsis acute organ dysfunction status: with acute organ dysfunction Sepsis type: sepsis due to unspecified organism Severe sepsis acute organ dysfunction type: acute renal failure Severe sepsis shock status: without septic shock Acute on chronic renal insufficiency N28.9; N18.9 Staphylococcus aureus bacteremia R78.81; B95.61 Bloodstream infection due to Port-A-Cath T80.211A Physical deconditioning R53.81 History of pacemaker Z95.0 NSTEMI (non-ST elevated myocardial infarction) I21.4
[2023-10-23] MEDS: HYDROcodone-acetaminophen 5-325 mg Tablet 1 TAB PO ×2 (14:15→20:27)
[2023-10-23 14:51] LABS: Blood Urea Nitrogen 31 mg/dL (8-23); Calcium 8.3 mg/dL (8.5-10.5); Carbon Dioxide 21 mmol/L (22-29); Chloride 93 mmol/L (98-107); Creatinine Clr Calc Pharmacy 32.4712; Glucose 100 mg/dL (65-115); Osmolality Calculated 275 mOsm/kg (285-295); Sodium 129 mmol/L (136-145)
[2023-10-23 14:52] LABS: Anion Gap 19.2 (5-19); Potassium 4.2 mmol/L (3.5-5.1)
[2023-10-23 18:50] LABS: Partial Thromboplastin Time > 250.0 SECONDS (23.9-36.7)
[2023-10-23 22:44] LABS: Partial Thromboplastin Time 123.7 SECONDS (23.9-36.7)
[2023-10-23] MEDS: heparin drip 25,000 UNIT/500 ML PREMIX 12 UNIT IV (23:12)
[2023-10-24] VITALS (9 sets, daily range): BP systolic 123–165; BP diastolic 66–84; PULSE 69–78; RESP 16–19; TEMP 36.4–36.7; O2SAT 93–95
--- NOTE | 2023-10-24 02:58 | PC.NURSE ---
During shift change lab called to report a critcal ptt of greater than 250; I paused the heparin drip and called Dr. Manuel; he advised to keep the heparin drip paused for 3 hours and then redraw her ptt and then restart the pump at half of the infusion rate that it was at before. At 2300 her ptt came back at 123.7 and I restarted the pump at 12 mL/hour and scheduled her next ptt to be drawn at 0500.
[2023-10-24] MEDS: ceFAZolin 2,000 MG in sodium chloride 0.9% (plus) 50 ML 100 MG IV ×3 (04:24→20:24)
[2023-10-24 06:10] LABS: Partial Thromboplastin Time 217.1 SECONDS (23.9-36.7)
--- NOTE | 2023-10-24 06:16 | PC.NURSE ---
at 0612 ptt came back at 217.1. Dr Marquis instructed to put heparin drip on hold for for hours and then redraw the ptt. Orders were placed to draw ptt at 1000.
[2023-10-24] MEDS: lisinopril 10 mg Tablet 5 MG PO (08:08)
[2023-10-24] MEDS: allopurinol 100 mg Tablet 400 MG PO (08:08)
[2023-10-24] MEDS: sertraline 100 mg Tablet PO (08:08)
[2023-10-24] MEDS: clopidogrel 75 mg Tablet PO (08:09)
[2023-10-24] MEDS: ascorbic acid 500 mg Tablet PO (08:09)
[2023-10-24] MEDS: atorvastatin 40 mg Tablet PO (08:09)
--- NOTE | 2023-10-24 09:06 | XR_ITS ---
WS: [id number] PORTABLE CHEST HISTORY: Post PICC insertion COMPARISON: 10/15/2023 RIGHT sided PICC line at the cavoatrial junction in good position. No complications. Mild hazy attenuation in pulmonary edema. No dense consolidations. Small LEFT pleural effusion. Cardiac size: Mildly enlarged cardiac silhouette. Mediastinum/Aorta: Prior median sternotomy and LEFT subclavian pacer. No osseous abnormality seen. XR/XR chest 1V portable [id number] IMPRESSION: 1. Interval placement right-sided PICC line in good position. 2. Mild CHF.
--- NOTE | 2023-10-24 10:00 | PICC.NOTE ---
Single lumen PICC placed to right basilic vein. Referred to vascular access nurse for PICC placement due to need for IV antibiotics x 6 weeks. Risks and benefits discussed and informed consent obtained from patient. Left arm assessed and noted to have bruised area to upper left arm, apparently from an infiltrated ultrasound guided IV. Left arm swollen and ultrasound assessment showed no viable veins. Right arm assessed with right basilic vein measuring 4.2 mm, straight, and apparent best choice for placement. Recent US shows right basilic vein free of clot. Using sterile technique and MST, right basilic vein accessed x 1 stick. Mid-arm circumference measured 10 cm from right AC 31 cm. Trimmed cath 41 cm with 2 cm external length noted. CXR shows tip in cavoatrial junction, in good position for use per radiologist. Line secured with stat-lock. Insertion site covered with Biopatch, gauze, and TSM. Pressure held for approximately 2 minutes. Report given to bedside nurse, FELIPE Cowan. Bedside nurse instructed to observe site frequently due to patient's increased PTT.
--- NOTE | 2023-10-24 10:18 | P.PN_ITS ---
Subjective 2 Subjective: Infectious disease progress note no acute events Liver function is improving CT chest without any discrete collections. RUE duplex with superficial thrombophlebitis Vitals/I&O/Wt Last Vital Signs Temp 97.5 F L 10/26/23 08:38 Pulse 70 10/26/23 09:51 Resp 16 10/26/23 09:51 BP 131/74 10/26/23 08:38 Pulse Ox 96 10/26/23 09:51 O2 Del Method Room Air 10/26/23 09:51 O2 Flow Rate 2 10/17/23 07:40 10/25/23 10/26/23 10/26/23 22:59 06:59 14:59 Intake Total 170 / 460 350 / 810 Output Total 400 / 400 1250 / 1650 Balance -230 / 60 -900 / -840 Weight last 48 hrs Weight 86.636 kg Weight 85.956 kg Physical Exam 2 Narrative: General: chronically ill appearing , frail Not examined, currently on the commode Urinary Catheter Management: Estes: Cath Placed During This Visit: yes Reason for Continuing Indwelling Catheter: Other Urinary Catheter Date of Insertion: 10/14/23 Urinary Catheter Time of Insertion: 22:15 Data 10/26/23 06:00 10/26/23 06:00 Micro: Microbiology 10/20/23 12:20 Blood Culture - Final Blood NO GROWTH AFTER 5 DAYS 10/20/23 12:45 Blood Culture - Final Blood NO GROWTH AFTER 5 DAYS A&P Assessment and plan (1) Staphylococcus aureus bacteremia: 73-year-old lady with multiple comorbidities currently admitted with Port-A-Cath infection, resulting MSSA bacteremia. Blood culture positive from October 12, eventually underwent port removal on October 15, 2023. f/up blood cx from October 19 negative Continue cefazolin 2 g IV every 8 hours for MSSA directed therapy. TTE without gross vegetations ; EF reduced to 20% now , severe diffuse hypokinesia leukocytosis stable, closely monitor, if persistently uptrending, will need OLVIN, can defer for now given blood cx clear, alternate explanation for bacteremia Total duration of antibiotics 6 weeks from clearance of bacteremia (10/19-11/30) RUE with superficial thrombophlebitis without DVT While on above abx, obtain weekly CBC, LFT, creat and fax to ID clinic for review (2) Bloodstream infection due to Port-A-Cath: s/p port removal (3) Transaminitis: now improving CT abdomen without any biliary tree obstruction Un[place]ale to get MRCP due to pacemaker Plan acute on chronic CHF: management per hospitalist Thank you for this consult. Please call with any further questions or concerns Attestations 2 Medical Necessity Statement*: per admitting Coding Level of Care Code Acute Code for g Fwd Diagnoses Staphylococcus aureus bacteremia R78.81; B95.61 Bloodstream infection due to Port-A-Cath T80.211A Transaminitis R74.01
--- NOTE | 2023-10-24 11:16 | PC.NURSE ---
PTT not resulted yet. Lab states they do not have the sample from Blanca Kim RN yet. This RN draws from [facility] for new sample. Labeled and sent to lab through tube system.
[2023-10-24 11:28] LABS: Basophils # 0.1 10^3/uL (0.0-0.1); Basophils % 0.7 %; Eosinophils # 0.1 10^3/uL (0.0-0.8); Eosinophils % 0.8 %; Hematocrit 32.7 % (36-47); Lymphocytes # 1.1 10^3/uL (0.8-4.8); Lymphocytes % 6.4 %; Mean Corpuscular HGB Conc 32.7 g/dL (30-55); Mean Corpuscular Hemoglobin 31.1 pg (27-33); Mean Corpuscular Volume 95.1 fl (85-98); Mean Platelet Volume 11.1 fL (7.4-10.4); Monocytes # 0.7 10^3/uL (0.2-0.9); Monocytes % 4.3 %; Neutrophils # 14.57 10^3/uL (1.8-7.7); Neutrophils % 86.8 %; Nucleated Red Blood Cells % 0 %; Platelet Count 213 10^3/cmm (157-399); Red Blood Count 3.44 10^6/uL (3.85-5.65); Red Cell Distribution Width 18.7 % (12.1-15.1); White Blood Count 16.78 10^3/uL (3.29-11.43)
[2023-10-24] MEDS: FUROsemide 10 mg/mL SDV 4mL 40 MG IVP (12:17)
[2023-10-24] MEDS: metoprolol tartrate 25 mg Tablet 12.5 MG PO (12:17)
[2023-10-24 13:06] LABS: Partial Thromboplastin Time 66.1 SECONDS (23.9-36.7); SARS Covid-2 Antigen negative (Negative)
--- NOTE | 2023-10-24 15:34 | PC.SOCIAL ---
IMM Update IMM updated, copy given to patient and placed in chart.
--- NOTE | 2023-10-24 16:00 | P.PN_ITS ---
Subjective 2 Subjective: Patient was seen this morning, sitting up in the chair, on room air, does report shortness of breath, does report lower extremity edema, no fevers, no chills Vitals/I&O/Wt Last Vital Signs Temp 97.6 F 10/24/23 12:00 Pulse 70 10/24/23 12:00 Resp 18 10/24/23 12:00 BP 135/68 10/24/23 12:00 Pulse Ox 95 10/24/23 12:00 O2 Del Method Room Air 10/24/23 12:00 O2 Flow Rate 2 10/17/23 07:40 10/24/23 10/24/23 10/24/23 06:59 14:59 22:59 Intake Total 134 / 379.833 770 / 770 Output Total 200 / 600 Balance -66 / -220.167 770 / 770 Weight last 48 hrs Weight 85.814 kg Weight 83.915 kg Physical Exam 2 Const: COMMON NORMALS: no acute distress and patient oriented x3 Neck/C-Spine: COMMON NORMALS: no JVD Resp: COMMON NORMALS: normal respiratory effort, No retractions and No use of accessory muscles AUSCULTATION: crackles Cardio: COMMON NORMALS: no JVD, regular rate, regular rhythm, S1 normal heart sound present and S2 normal heart sound present RATE: regular rate RHYTHM: regular rhythm HEART SOUNDS: S1 normal heart sound present and S2 normal heart sound present GI: COMMON NORMALS: Normal to inspection, nondistended, normoactive bowel sounds present and non-tender Extremity: NARRATIVE EXTREMITY EXAM: 2+ pitting edema bilateral extremity Neuro: COMMON NORMALS: patient oriented x3 Psych: COMMON NORMALS: mental status grossly normal Urinary Catheter Management: Estes: Cath Placed During This Visit: yes Reason for Continuing Indwelling Catheter: Accurate Measurement of Urinary Output in Critically Ill Patients Urinary Catheter Date of Insertion: 10/14/23 Urinary Catheter Time of Insertion: 22:15 Data 10/24/23 10:42 10/23/23 14:25 A&P Assessment and plan (1) Congestive heart failure: Qualifiers: Heart failure chronicity: acute on chronic Heart failure type: d iastolic Qualified Code(s): I50.33 - Acute on chronic diastolic (congestive) heart failure (2) Abdominal pain: (3) Recurrent UTI: (4) HTN (hypertension): Qualifiers: Hypertension type: primary hypertension Qualified Code(s): I10 - Essential (primary) hypertension (5) CAD (coronary artery disease): (6) Atrial fibrillation: (7) Gout: Qualifiers: Gout site: ankle Gout etiology: due to renal impairment Chronicity: c hronic Laterality: unspecified laterality Presence of tophus: without tophus Qualified Code(s): 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, unspecified ankle and foot, without tophus (tophi) (8) GERD (gastroesophageal reflux disease): (9) Anxiety: (10) Sepsis: Qualifiers: Acute renal failure type: with other specified pathological lesion S epsis acute organ dysfunction status: with acute organ dysfunction Sepsis type: sepsis due to unspecified organism Severe sepsis acute organ dysfunction type: acute renal failure Severe sepsis shock status: without septic shock Qualified Code(s): A41.9 - Sepsis, unspecified organism; R65.20 - Severe sepsis without septic shock; N17.8 - Other acute kidney failure (11) Acute on chronic renal insufficiency: (12) Staphylococcus aureus bacteremia: (13) Bloodstream infection due to Port-A-Cath: (14) Physical deconditioning: (15) History of pacemaker: (16) NSTEMI (non-ST elevated myocardial infarction): Plan Staph aureus bacteremia, Mediport staph infection ? Initial set of blood cultures positive for Staph aureus -catheter tip culture positive for Staph aureus ? Chest wound cultures positive for Staph aureus ? Status post Mediport removal ? Plan ? Repeat blood cultures are pending, negative so far ? PICC line to be placed ? Antibiotic therapy has been tailored to cefazolin, will need a total of 6 weeks from negative blood culture ? Infectious disease consulted ? Patient does have a pacemaker in place, if patient develops worsening leukocytosis, fevers, recurrent bacteremia, will have to consider transesophageal echocardiogram New onset hematuria in spite of improved platelet-likely UTI, has Estes catheter in place Resolved UA with evidence of UTI Resume Eliquis and Plavix for now. Will monitor Right cephalic vein occlusive thrombosis ? I do not believe this is a failure of anticoagulation, as patient's Eliquis and Plavix was on hold for at least 48 hours due to hematuria ? Patient was monitored on heparin drip for 24 hours ? Will switch her to Eliquis 10 mg twice daily for 7 days followed by 5 mg twice daily Thrombocytopenia Associated with Protonix, ? Monitor Jaundice, scleral icterus, with hyperbilirubinemia, elevated LFTs, elevated alk phos -Liver ultrasound shows morphologic features suggesting liver cirrhosis - liver function studies monitoring ? Ordere CT scan abdomen pelvis with IV contrast ? CT/CT abdomen pelvis w con* [id number] IMPRESSION: 1. No evidence of liver abscess. 2. Prior cholecystectomy. 3. No intrahepatic biliary ductal dilatation. 4. Slightly cirrhotic configuration to the liver with fatty infiltration. 5. Diffuse body wall anasarca with mild pelvic ascites. Slight perihepatic ascites. 6. Small bilateral pleural effusions with compressive atelectasis in the lung bases. 7. Atrophic RIGHT kidney -cannot do mrcp given pacemaker -Given patient's persistent hyperbilirubinemia, elevated alk phos, LFTs, and recent cholecystectomy, etiology concerning for biliary injury vs biliary stricture vs ampula fedreica dysfunction vs cholestatic jaundice ? Spoke to general surgery, Dr. Amaya, patient in August had a cholecystectomy, recommended consultation with GI ? Spoke to hepatobiliary at [facility] in [place], recommended medical management, no acute interventions, with out patient follow up NSTEMI ? Type I versus type II ? No chest pain complaints, ? Cath in 2022 showed ?Conclusions 1. Critical in-stent restenosis of 2. SVG to diagonal artery prior stent. Status post successful revascularization with balloon angioplasty. Severe stenosis of SVG to diagonal artery proximal to prior stent. S/p successful revascularization with 1 stent.. 3. Patient has prior CABG. ? Stress test in September 2023 IMPRESSIONS 1. Abnormal myocardial perfusion imaging with large areas of prior infarct with minimal jodi-infarct ischemia seen in all 3 coronary artery territories. 2. LV systolic function is moderately reduced with EF of 41%. ? Echocardiogram CONCLUSIONS Severe diffuse hypokinesia of the left ventricule with an ejection fraction of 20%. Moderate biatrial enlargement. Defibrillator/pacemaker wire in the event right atrium and ventricle Minimally thickened aortic and mitral valves. There is no pericardial effusion. No intracardiac or vegetations were noted . Compared to the study from 10/05/2023, the ejection fraction has decreased from 30% to 20% ? Plan ? Spoke to cardiology, recommended medical management ? Continue Plavix ? Continue Eliquis, ? Continue telemetry monitoring ? Monitor for chest pain Physical deconditioning, protein calorie malnutrition ? PT OT ? Protein shakes twice daily Sepsis: Resolved leukocytosis resolved Clinically improving and looks much better as compared to admission Source: Likely secondary to Mediport site infection s/p Mediport removal Continue IV vancomycin since blood cultures, catheter report culture and wound culture showed coagulase positive Staph aureus Off Levophed, maintaining systolic blood pressure in 120s Supportive care and wound care (2) BERNADETTE (acute kidney injury): BERNADETTE on CKD stage II, creatinine 1.7 today, hold off on diuresis Discontinue lactated Ringer (3) Congestive heart failure: Currently in exacerbation Heart failure with reduced ejection Status post IV fluid boluses in ED, she is very high risk for CHF exacerbation Continue beta srikanth Echocardiogram shows EF of 20% (4) HTN (hypertension): (5) CAD (coronary artery disease): plavix (6) Atrial fibrillation: apixaban (7) Gout: allopurinol for now (8) GERD (gastroesophageal reflux disease): (9) Anxiety: Continue home Xanax Continue home SSRI Cardiac diet DVT prophylaxis: Apixaban CODE STATUS: Full code Will require retirement placement Today patient has CHF exacerbation, with 2+ pitting edema, crackles on examination, will give her a dose of Lasix awaiting for BMP, further doses of Lasix based on clinical progress and creatinine, follow potassium, stop heparin drip switched to Eliquis, continue IV cefazolin, Attestations 2 Medical Necessity Statement*: Patient requires hospitalization for Staph aureus bacteremia Mediport infection, now with CHF exacerbation Diagnoses Acute on chronic diastolic congestive heart failure I50.33 Heart failure chronicity: acute on chronic Heart failure type: diastolic Abdominal pain R10.9 Recurrent UTI N39.0 Primary hypertension I10 Hypertension type: primary hypertension CAD (coronary artery disease) I25.10 Atrial fibrillation I48.91 Chronic gout due to renal impairment involving ankle without tophus, unspecified laterality M1A.3790 Gout site: ankle Gout etiology: due to renal impairment Chronicity: chronic Laterality: unspecified laterality Presence of tophus: without tophus GERD (gastroesophageal reflux disease) K21.9 Anxiety F41.9 Sepsis A41.9; R65.20; N17.8 Acute renal failure type: with other specified pathological lesion Sepsis acute organ dysfunction status: with acute organ dysfunction Sepsis type: sepsis due to unspecified organism Severe sepsis acute organ dysfunction type: acute renal failure Severe sepsis shock status: without septic shock Acute on chronic renal insufficiency N28.9; N18.9 Staphylococcus aureus bacteremia R78.81; B95.61 Bloodstream infection due to Port-A-Cath T80.211A Physical deconditioning R53.81 History of pacemaker Z95.0 NSTEMI (non-ST elevated myocardial infarction) I21.4
[2023-10-24] MEDS: apixaban 5 mg Tablet 10 MG PO (17:27)
[2023-10-24] MEDS: HYDROcodone-acetaminophen 5-325 mg Tablet 1 TAB PO (17:32)
--- NOTE | 2023-10-24 19:43 | PC.NURSE ---
Dressing to PICC line changed per nursing protocol. Sterile technique used. Previous dressing saturated with blood. No active bleeding noted.
--- NOTE | 2023-10-24 20:52 | ECG_ITS ---
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 Measurements Intervals [place] Rate: 72 P: 0 DC: 0 QRS: -61 QRSD: 161 T: 111 QT: 496 QTc: 546 Interpretive Statements ELECTRONIC VENTRICULAR PACEMAKER ABNORMAL RHYTHM ECG Compared to ECG 10/22/2023 14:14:38 No significant changes Electronically Signed On 10-28-2023 13:20:30 CDT by Maurisio Hammond M.D. [email or web address] centerSage [facility] [id number]
[2023-10-24 21:35] LABS: Alanine Aminotransferase < 5 U/L (0-33); Albumin Level 2.3 g/dL (3.5-5.2); Alkaline Phosphatase 507 U/L (35-105); Chloride 94 mmol/L (98-107); Potassium 3.7 mmol/L (3.5-5.1); Sodium 131 mmol/L (136-145)
[2023-10-24 21:52] LABS: Anion Gap 19.7 (5-19); Aspartate Amino Transferase 55 U/L (0-32); Blood Urea Nitrogen 35 mg/dL (8-23); Carbon Dioxide 21 mmol/L (22-29); Creatinine Clr Calc Pharmacy 29.3788; Globulin 3.3 g/dL (1.3-4.6); Glucose 92 mg/dL (65-115); Osmolality Calculated 280 mOsm/kg (285-295); Total Protein 5.6 g/dL (6.6-8.7)
--- NOTE | 2023-10-24 23:01 | PC.NURSE ---
At 19:26, patient had short run of tachycardia on telemetry. Patient asymptomatic. VSS. EKG taken.
[2023-10-25] VITALS (9 sets, daily range): BP systolic 121–158; BP diastolic 63–81; PULSE 68–87; RESP 16–18; TEMP 36.5–37; O2SAT 93–95
[2023-10-25] MEDS: ceFAZolin 2,000 MG in sodium chloride 0.9% (plus) 50 ML 100 MG IV ×3 (04:24→21:10)
[2023-10-25] MEDS: apixaban 5 mg Tablet 10 MG PO ×2 (04:24→17:12)
[2023-10-25] MEDS: metoprolol tartrate 25 mg Tablet 12.5 MG PO (04:24)
[2023-10-25] MEDS: HYDROcodone-acetaminophen 5-325 mg Tablet 1 TAB PO ×2 (04:24→22:06)
--- NOTE | 2023-10-25 06:20 | PC.NURSE ---
Very small amount of blood oozed from PICC line insertion site throughout shift. PICC dressing change completed at this time and gauze placed under dressing due to slow ooze.
[2023-10-25] MEDS: lisinopril 10 mg Tablet 5 MG PO (08:16)
[2023-10-25] MEDS: sertraline 100 mg Tablet PO (08:16)
[2023-10-25] MEDS: clopidogrel 75 mg Tablet PO (08:16)
[2023-10-25] MEDS: atorvastatin 40 mg Tablet PO (08:16)
[2023-10-25] MEDS: allopurinol 100 mg Tablet 400 MG PO (08:17)
[2023-10-25 09:44] LABS: Basophils # 0.1 10^3/uL (0.0-0.1); Basophils % 0.6 %; Eosinophils # 0.1 10^3/uL (0.0-0.8); Eosinophils % 0.8 %; Lymphocytes # 1.5 10^3/uL (0.8-4.8); Lymphocytes % 9.7 %; Mean Corpuscular HGB Conc 32.5 g/dL (30-55); Mean Corpuscular Volume 95.5 fl (85-98); Mean Platelet Volume 10.7 fL (7.4-10.4); Monocytes % 6.3 %; Neutrophils # 12.91 10^3/uL (1.8-7.7); Neutrophils % 81.8 %; Nucleated Red Blood Cells % 0 %; Platelet Count 239 10^3/cmm (157-399); Red Blood Count 3.35 10^6/uL (3.85-5.65); Red Cell Distribution Width 18.6 % (12.1-15.1)
[2023-10-25 13:47] LABS: NT Pro B Type Natriuretic Pept 38809 pg/mL (0-125)
--- NOTE | 2023-10-25 14:19 | P.PN_ITS ---
Subjective 2 Subjective: Patient was seen this morning, she does complain of shortness of breath, she has bilateral extremity edema, she received Lasix yesterday, we discussed her BERNADETTE creatinine up to 1.9 however she has significant fluid overload her EF of 20%, repeat blood work this morning pending, Vitals/I&O/Wt Last Vital Signs Temp 98.1 F 10/25/23 07:52 Pulse 74 10/25/23 11:39 Resp 16 10/25/23 11:39 BP 148/81 10/25/23 11:39 Pulse Ox 94 10/25/23 11:39 O2 Del Method Room Air 10/25/23 11:39 O2 Flow Rate 2 10/17/23 07:40 10/24/23 10/25/23 10/25/23 22:59 06:59 14:59 Intake Total 770 / 1540 170 / 1710 290 / 290 Output Total 1250 / 1250 300 / 1550 Balance -480 / 290 -130 / 160 290 / 290 Weight last 48 hrs Weight 85.956 kg Weight 85.814 kg Physical Exam 2 Const: COMMON NORMALS: no acute distress and patient oriented x3 Resp: COMMON NORMALS: normal respiratory effort, No retractions and No use of accessory muscles AUSCULTATION: crackles Cardio: COMMON NORMALS: regular rate, regular rhythm, S1 normal heart sound present and S2 normal heart sound present RATE: regular rate RHYTHM: r egular rhythm HEART SOUNDS: S1 normal heart sound present and S2 normal heart sound present GI: COMMON NORMALS: Normal to inspection, nondistended, normoactive bowel sounds present and non-tender Extremity: COMMON NORMALS: no pedal edema Neuro: COMMON NORMALS: patient oriented x3 Psych: COMMON NORMALS: mental status grossly normal Urinary Catheter Management: Estes: Cath Placed During This Visit: yes Reason for Continuing Indwelling Catheter: Other Urinary Catheter Date of Insertion: 10/14/23 Urinary Catheter Time of Insertion: 22:15 Data 10/25/23 09:05 10/24/23 21:07 Micro: Microbiology 10/20/23 12:20 Blood Culture - Final Blood NO GROWTH AFTER 5 DAYS 10/20/23 12:45 Blood Culture - Final Blood NO GROWTH AFTER 5 DAYS A&P Assessment and plan (1) Congestive heart failure: Qualifiers: Heart failure chronicity: acute on chronic Heart failure type: d iastolic Qualified Code(s): I50.33 - Acute on chronic diastolic (congestive) heart failure (2) Abdominal pain: (3) Recurrent UTI: (4) HTN (hypertension): Qualifiers: Hypertension type: primary hypertension Qualified Code(s): I10 - Essential (primary) hypertension (5) CAD (coronary artery disease): (6) Atrial fibrillation: (7) Gout: Qualifiers: Gout site: ankle Gout etiology: due to renal impairment Chronicity: c hronic Laterality: unspecified laterality Presence of tophus: without tophus Qualified Code(s): 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, unspecified ankle and foot, without tophus (tophi) (8) GERD (gastroesophageal reflux disease): (9) Anxiety: (10) Sepsis: Qualifiers: Acute renal failure type: with other specified pathological lesion S epsis acute organ dysfunction status: with acute organ dysfunction Sepsis type: sepsis due to unspecified organism Severe sepsis acute organ dysfunction type: acute renal failure Severe sepsis shock status: without septic shock Qualified Code(s): A41.9 - Sepsis, unspecified organism; R65.20 - Severe sepsis without septic shock; N17.8 - Other acute kidney failure (11) Acute on chronic renal insufficiency: (12) Staphylococcus aureus bacteremia: (13) Bloodstream infection due to Port-A-Cath: (14) Physical deconditioning: (15) History of pacemaker: (16) NSTEMI (non-ST elevated myocardial infarction): Plan Staph aureus bacteremia, Mediport staph infection ? Initial set of blood cultures positive for Staph aureus -catheter tip culture positive for Staph aureus ? Chest wound cultures positive for Staph aureus ? Status post Mediport removal ? Plan ? Repeat blood cultures are pending, negative so far ? PICC line to be placed ? Antibiotic therapy has been tailored to cefazolin, will need a total of 6 weeks from negative blood culture ? Infectious disease consulted ? Patient does have a pacemaker in place, if patient develops worsening leukocytosis, fevers, recurrent bacteremia, will have to consider transesophageal echocardiogram New onset hematuria in spite of improved platelet-likely UTI, has Estes catheter in place Resolved UA with evidence of UTI Resume Eliquis and Plavix for now. Will monitor Right cephalic vein occlusive thrombosis ? I do not believe this is a failure of anticoagulation, as patient's Eliquis and Plavix was on hold for at least 48 hours due to hematuria ? Patient was monitored on heparin drip for 24 hours ? Will switch her to Eliquis 10 mg twice daily for 7 days followed by 5 mg twice daily Thrombocytopenia Associated with Protonix, ? Monitor Jaundice, scleral icterus, with hyperbilirubinemia, elevated LFTs, elevated alk phos -Liver ultrasound shows morphologic features suggesting liver cirrhosis - liver function studies monitoring ? Ordere CT scan abdomen pelvis with IV contrast ? CT/CT abdomen pelvis w con* [id number] IMPRESSION: 1. No evidence of liver abscess. 2. Prior cholecystectomy. 3. No intrahepatic biliary ductal dilatation. 4. Slightly cirrhotic configuration to the liver with fatty infiltration. 5. Diffuse body wall anasarca with mild pelvic ascites. Slight perihepatic ascites. 6. Small bilateral pleural effusions with compressive atelectasis in the lung bases. 7. Atrophic RIGHT kidney -cannot do mrcp given pacemaker -Given patient's persistent hyperbilirubinemia, elevated alk phos, LFTs, and recent cholecystectomy, etiology concerning for biliary injury vs biliary stricture vs ampula federica dysfunction vs cholestatic jaundice ? Spoke to general surgery, Dr. Amaya, patient in August had a cholecystectomy, recommended consultation with GI ? Spoke to hepatobiliary at [facility] in [place], recommended medical management, no acute interventions, with out patient follow up NSTEMI ? Type I versus type II ? No chest pain complaints, ? Cath in 2022 showed ?Conclusions 1. Critical in-stent restenosis of 2. SVG to diagonal artery prior stent. Status post successful revascularization with balloon angioplasty. Severe stenosis of SVG to diagonal artery proximal to prior stent. S/p successful revascularization with 1 stent.. 3. Patient has prior CABG. ? Stress test in September 2023 IMPRESSIONS 1. Abnormal myocardial perfusion imaging with large areas of prior infarct with minimal jodi-infarct ischemia seen in all 3 coronary artery territories. 2. LV systolic function is moderately reduced with EF of 41%. ? Echocardiogram CONCLUSIONS Severe diffuse hypokinesia of the left ventricule with an ejection fraction of 20%. Moderate biatrial enlargement. Defibrillator/pacemaker wire in the event right atrium and ventricle Minimally thickened aortic and mitral valves. There is no pericardial effusion. No intracardiac or vegetations were noted . Compared to the study from 10/05/2023, the ejection fraction has decreased from 30% to 20% ? Plan ? Spoke to cardiology, recommended medical management ? Continue Plavix ? Continue Eliquis, ? Continue telemetry monitoring ? Monitor for chest pain Physical deconditioning, protein calorie malnutrition ? PT OT ? Protein shakes twice daily Sepsis: Resolved leukocytosis resolved Clinically improving and looks much better as compared to admission Source: Likely secondary to Mediport site infection s/p Mediport removal Continue IV vancomycin since blood cultures, catheter report culture and wound culture showed coagulase positive Staph aureus Off Levophed, maintaining systolic blood pressure in 120s Supportive care and wound care (2) BERNADETTE (acute kidney injury): BERNADETTE on CKD stage II, creatinine 1.7 today, hold off on diuresis Discontinue lactated Ringer (3) Congestive heart failure: Currently in exacerbation Heart failure with reduced ejection Status post IV fluid boluses in ED, she is very high risk for CHF exacerbation Continue beta srikanth Echocardiogram shows EF of 20% (4) HTN (hypertension): (5) CAD (coronary artery disease): plavix (6) Atrial fibrillation: apixaban (7) Gout: allopurinol for now (8) GERD (gastroesophageal reflux disease): (9) Anxiety: Continue home Xanax Continue home SSRI Cardiac diet DVT prophylaxis: Apixaban CODE STATUS: Full code Will require penitentiary placement Today continues to have evidence of severe fluid overload 2+ pitting edema, BNP over 38,000, creatinine 1.9, could be cardiorenal syndrome, will diurese with Lasix, still waiting on BMP, to decide if she needs more Lasix, will give 40 mg of Lasix with potassium replacement therapy further diuresis based on what BMP results show, Attestations 2 Medical Necessity Statement*: Patient requires hospitalization for CHF exacerbation requiring IV diuresis, Coding Level of Care Code Acute Code for Chg Fwd Diagnoses Acute on chronic diastolic congestive heart failure I50.33 Heart failure chronicity: acute on chronic Heart failure type: diastolic Abdominal pain R10.9 Recurrent UTI N39.0 Primary hypertension I10 Hypertension type: primary hypertension CAD (coronary artery disease) I25.10 Atrial fibrillation I48.91 Chronic gout due to renal impairment involving ankle without tophus, unspecified laterality M1A.3790 Gout site: ankle Gout etiology: due to renal impairment Chronicity: chronic Laterality: unspecified laterality Presence of tophus: without tophus GERD (gastroesophageal reflux disease) K21.9 Anxiety F41.9 Sepsis A41.9; R65.20; N17.8 Acute renal failure type: with other specified pathological lesion Sepsis acute organ dysfunction status: with acute organ dysfunction Sepsis type: sepsis due to unspecified organism Severe sepsis acute organ dysfunction type: acute renal failure Severe sepsis shock status: without septic shock Acute on chronic renal insufficiency N28.9; N18.9 Staphylococcus aureus bacteremia R78.81; B95.61 Bloodstream infection due to Port-A-Cath T80.211A Physical deconditioning R53.81 History of pacemaker Z95.0 NSTEMI (non-ST elevated myocardial infarction) I21.4
[2023-10-25] MEDS: potassium chloride ER 20 mEq Tablet 40 MEQ PO (14:46)
[2023-10-25 15:13] LABS: Alanine Aminotransferase < 5 U/L (0-33); Albumin Level 2.7 g/dL (3.5-5.2); Alkaline Phosphatase 530 U/L (35-105); Aspartate Amino Transferase 63 U/L (0-32); Blood Urea Nitrogen 34 mg/dL (8-23); Calcium 8.7 mg/dL (8.5-10.5); Carbon Dioxide 24 mmol/L (22-29); Chloride 93 mmol/L (98-107); Globulin 3.6 g/dL (1.3-4.6); Glucose 109 mg/dL (65-115); Osmolality Calculated 280 mOsm/kg (285-295); Sodium 131 mmol/L (136-145); Total Bilirubin 2.1 mg/dL (0.15-1.2); Total Protein 6.3 g/dL (6.6-8.7)
[2023-10-25 15:18] LABS: Anion Gap 17.6 (5-19); Potassium 3.6 mmol/L (3.5-5.1)
[2023-10-25] MEDS: FUROsemide 10 mg/mL SDV 4mL 40 MG IVP ×2 (15:28→21:10)
[2023-10-25 15:35] LABS: NT Pro B Type Natriuretic Pept 40311 pg/mL (0-125)
[2023-10-25] MEDS: metoprolol tartrate 25 mg Tablet PO (17:12)
[2023-10-25] MEDS: ALPRAZolam 0.5 mg Tablet PO (22:06)
[2023-10-26] VITALS (10 sets, daily range): BP systolic 103–131; BP diastolic 60–74; PULSE 69–84; RESP 16–18; TEMP 36.3–37; O2SAT 92–97
[2023-10-26 06:09] LABS: Basophils # 0.1 10^3/uL (0.0-0.1); Basophils % 0.9 %; Eosinophils # 0.2 10^3/uL (0.0-0.8); Eosinophils % 1.2 %; Hematocrit 29.1 % (36-47); Lymphocytes # 1.2 10^3/uL (0.8-4.8); Lymphocytes % 9.3 %; Mean Corpuscular HGB Conc 31.6 g/dL (30-55); Mean Corpuscular Volume 94.8 fl (85-98); Monocytes # 0.9 10^3/uL (0.2-0.9); Monocytes % 6.6 %; Neutrophils # 10.78 10^3/uL (1.8-7.7); Neutrophils % 81.5 %; Nucleated Red Blood Cells % 0 %; Platelet Count 184 10^3/cmm (157-399); Red Blood Count 3.07 10^6/uL (3.85-5.65); Red Cell Distribution Width 18.5 % (12.1-15.1); White Blood Count 13.22 10^3/uL (3.29-11.43)
[2023-10-26] MEDS: metoprolol tartrate 25 mg Tablet PO ×2 (06:14→18:27)
[2023-10-26] MEDS: HYDROcodone-acetaminophen 5-325 mg Tablet 1 TAB PO (06:14)
[2023-10-26] MEDS: ceFAZolin 2,000 MG in sodium chloride 0.9% (plus) 50 ML 100 MG IV ×3 (06:14→21:41)
[2023-10-26] MEDS: apixaban 5 mg Tablet 10 MG PO ×2 (06:14→18:26)
[2023-10-26 06:33] LABS: Alanine Aminotransferase < 5 U/L (0-33); Albumin Level 2.5 g/dL (3.5-5.2); Alkaline Phosphatase 469 U/L (35-105); Blood Urea Nitrogen 34 mg/dL (8-23); Calcium 8.4 mg/dL (8.5-10.5); Carbon Dioxide 24 mmol/L (22-29); Chloride 94 mmol/L (98-107); Creatinine Clr Calc Pharmacy 28.0438; Globulin 3.4 g/dL (1.3-4.6); Glucose 90 mg/dL (65-115); Osmolality Calculated 281 mOsm/kg (285-295); Sodium 132 mmol/L (136-145); Total Bilirubin 1.9 mg/dL (0.15-1.2); Total Protein 5.9 g/dL (6.6-8.7)
[2023-10-26 07:06] LABS: Anion Gap 18.2 (5-19); Potassium 4.2 mmol/L (3.5-5.1)
[2023-10-26 07:07] LABS: Aspartate Amino Transferase 62 U/L (0-32)
[2023-10-26 07:08] LABS: NT Pro B Type Natriuretic Pept 35548 pg/mL (0-125)
[2023-10-26] MEDS: albumin 25 G/100 ML BAG 60 G IV ×2 (09:10→18:26)
[2023-10-26] MEDS: FUROsemide 10 mg/mL SDV 4mL 40 MG IVP (09:11)
[2023-10-26] MEDS: allopurinol 100 mg Tablet 400 MG PO (09:11)
[2023-10-26] MEDS: potassium chloride ER 20 mEq Tablet PO ×2 (09:11→18:28)
[2023-10-26] MEDS: sertraline 100 mg Tablet PO (09:12)
[2023-10-26] MEDS: clopidogrel 75 mg Tablet PO (09:12)
[2023-10-26] MEDS: ascorbic acid 500 mg Tablet PO (09:12)
[2023-10-26] MEDS: atorvastatin 40 mg Tablet PO (09:12)
--- NOTE | 2023-10-26 10:22 | PC.NURSE ---
Patient had blood on hands and gown. Patient has been picking nose. Explained to patient the risk of bleeding on some of the medications taking which would increase the risk of bleeding.
[2023-10-26] MEDS: metOLazone 5 MG Tablet PO (13:39)
--- NOTE | 2023-10-26 15:13 | PC.SOCIAL ---
IMM updated IMM dated and copy given to patient and placed in chart
--- NOTE | 2023-10-26 16:51 | PC.NURSE ---
Patient has been picking at different places on body. One on right harrell and right cheek.
--- NOTE | 2023-10-26 17:19 | P.PN_ITS ---
Subjective 2 Subjective: Patient was seen this morning, she overall feels better is on room air continues to have lower extremity edema, she is worried about persistent edema, is at bedside Vitals/I&O/Wt Last Vital Signs Temp 97.4 F L 10/26/23 16:39 Pulse 72 10/26/23 16:39 Resp 17 10/26/23 16:39 BP 126/60 10/26/23 16:39 Pulse Ox 97 10/26/23 16:39 O2 Del Method Room Air 10/26/23 16:39 O2 Flow Rate 2 10/17/23 07:40 10/26/23 10/26/23 10/26/23 06:59 14:59 22:59 Intake Total 350 / 810 960 / 960 Output Total 1250 / 1650 Balance -900 / -840 960 / 960 Weight last 48 hrs Weight 86.636 kg Weight 85.956 kg Physical Exam 2 Const: COMMON NORMALS: no acute distress and patient oriented x3 Resp: COMMON NORMALS: normal respiratory effort, No retractions, No use of accessory muscles and clear to auscultation bilaterally AUSCULTATION: clear to auscultation bilaterally Cardio: COMMON NORMALS: regular rate, regular rhythm, S1 normal heart sound present and S2 normal heart sound present RATE: regular rate RHYTHM: r egular rhythm HEART SOUNDS: S1 normal heart sound present and S2 normal heart sound present GI: COMMON NORMALS: Normal to inspection, nondistended, normoactive bowel sounds present and non-tender Extremity: NARRATIVE EXTREMITY EXAM: 4+ pitting edema bilateral lower extremi ty Neuro: COMMON NORMALS: patient oriented x3 Psych: COMMON NORMALS: mental status grossly normal Urinary Catheter Management: Estes: Cath Placed During This Visit: yes Reason for Continuing Indwelling Catheter: Other Urinary Catheter Date of Insertion: 10/14/23 Urinary Catheter Time of Insertion: 22:15 Data 10/26/23 06:00 10/26/23 06:00 Micro: Microbiology 10/20/23 12:20 Blood Culture - Final Blood NO GROWTH AFTER 5 DAYS 10/20/23 12:45 Blood Culture - Final Blood NO GROWTH AFTER 5 DAYS A&P Assessment and plan (1) Congestive heart failure: Qualifiers: Heart failure chronicity: acute on chronic Heart failure type: d iastolic Qualified Code(s): I50.33 - Acute on chronic diastolic (congestive) heart failure (2) Abdominal pain: (3) Recurrent UTI: (4) HTN (hypertension): Qualifiers: Hypertension type: primary hypertension Qualified Code(s): I10 - Essential (primary) hypertension (5) CAD (coronary artery disease): (6) Atrial fibrillation: (7) Gout: Qualifiers: Gout site: ankle Gout etiology: due to renal impairment Chronicity: c hronic Laterality: unspecified laterality Presence of tophus: without tophus Qualified Code(s): 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, unspecified ankle and foot, without tophus (tophi) (8) GERD (gastroesophageal reflux disease): (9) Anxiety: (10) Sepsis: Qualifiers: Acute renal failure type: with other specified pathological lesion S epsis acute organ dysfunction status: with acute organ dysfunction Sepsis type: sepsis due to unspecified organism Severe sepsis acute organ dysfunction type: acute renal failure Severe sepsis shock status: without septic shock Qualified Code(s): A41.9 - Sepsis, unspecified organism; R65.20 - Severe sepsis without septic shock; N17.8 - Other acute kidney failure (11) Acute on chronic renal insufficiency: (12) Staphylococcus aureus bacteremia: (13) Bloodstream infection due to Port-A-Cath: (14) Physical deconditioning: (15) History of pacemaker: (16) NSTEMI (non-ST elevated myocardial infarction): Plan Staph aureus bacteremia, Mediport staph infection ? Initial set of blood cultures positive for Staph aureus -catheter tip culture positive for Staph aureus ? Chest wound cultures positive for Staph aureus ? Status post Mediport removal ? Plan ? Repeat blood cultures are pending, negative so far ? PICC line to be placed ? Antibiotic therapy has been tailored to cefazolin, will need a total of 6 weeks from negative blood culture ? Infectious disease consulted ? Patient does have a pacemaker in place, if patient develops worsening leukocytosis, fevers, recurrent bacteremia, will have to consider transesophageal echocardiogram New onset hematuria in spite of improved platelet-likely UTI, has Estes catheter in place Resolved UA with evidence of UTI Resume Eliquis and Plavix for now. Will monitor Right cephalic vein occlusive thrombosis ? I do not believe this is a failure of anticoagulation, as patient's Eliquis and Plavix was on hold for at least 48 hours due to hematuria ? Patient was monitored on heparin drip for 24 hours ? Will switch her to Eliquis 10 mg twice daily for 7 days followed by 5 mg twice daily Thrombocytopenia Associated with Protonix, ? Monitor Jaundice, scleral icterus, with hyperbilirubinemia, elevated LFTs, elevated alk phos -Liver ultrasound shows morphologic features suggesting liver cirrhosis - liver function studies monitoring ? Ordere CT scan abdomen pelvis with IV contrast ? CT/CT abdomen pelvis w con* [id number] IMPRESSION: 1. No evidence of liver abscess. 2. Prior cholecystectomy. 3. No intrahepatic biliary ductal dilatation. 4. Slightly cirrhotic configuration to the liver with fatty infiltration. 5. Diffuse body wall anasarca with mild pelvic ascites. Slight perihepatic ascites. 6. Small bilateral pleural effusions with compressive atelectasis in the lung bases. 7. Atrophic RIGHT kidney -cannot do mrcp given pacemaker -Given patient's persistent hyperbilirubinemia, elevated alk phos, LFTs, and recent cholecystectomy, etiology concerning for biliary injury vs biliary stricture vs ampula federica dysfunction vs cholestatic jaundice ? Spoke to general surgery, Dr. Amaya, patient in August had a cholecystectomy, recommended consultation with GI ? Spoke to hepatobiliary at [facility] in [place], recommended medical management, no acute interventions, with out patient follow up NSTEMI ? Type I versus type II ? No chest pain complaints, ? Cath in 2022 showed ?Conclusions 1. Critical in-stent restenosis of 2. SVG to diagonal artery prior stent. Status post successful revascularization with balloon angioplasty. Severe stenosis of SVG to diagonal artery proximal to prior stent. S/p successful revascularization with 1 stent.. 3. Patient has prior CABG. ? Stress test in September 2023 IMPRESSIONS 1. Abnormal myocardial perfusion imaging with large areas of prior infarct with minimal jodi-infarct ischemia seen in all 3 coronary artery territories. 2. LV systolic function is moderately reduced with EF of 41%. ? Echocardiogram CONCLUSIONS Severe diffuse hypokinesia of the left ventricule with an ejection fraction of 20%. Moderate biatrial enlargement. Defibrillator/pacemaker wire in the event right atrium and ventricle Minimally thickened aortic and mitral valves. There is no pericardial effusion. No intracardiac or vegetations were noted . Compared to the study from 10/05/2023, the ejection fraction has decreased from 30% to 20% ? Plan ? Spoke to cardiology, recommended medical management ? Continue Plavix ? Continue Eliquis, ? Continue telemetry monitoring ? Monitor for chest pain Physical deconditioning, protein calorie malnutrition ? PT OT ? Protein shakes twice daily Sepsis: Resolved leukocytosis resolved Clinically improving and looks much better as compared to admission Source: Likely secondary to Mediport site infection s/p Mediport removal Continue IV vancomycin since blood cultures, catheter report culture and wound culture showed coagulase positive Staph aureus Off Levophed, maintaining systolic blood pressure in 120s Supportive care and wound care (2) BERNADETTE (acute kidney injury): BERNADETTE on CKD stage II, creatinine 1.7 today, hold off on diuresis Discontinue lactated Ringer (3) Congestive heart failure: Currently in exacerbation Heart failure with reduced ejection Status post IV fluid boluses in ED, she is very high risk for CHF exacerbation Continue beta srikanth Echocardiogram shows EF of 20% (4) HTN (hypertension): (5) CAD (coronary artery disease): plavix (6) Atrial fibrillation: apixaban (7) Gout: allopurinol for now (8) GERD (gastroesophageal reflux disease): (9) Anxiety: Continue home Xanax Continue home SSRI Cardiac diet DVT prophylaxis: Apixaban CODE STATUS: Full code Will require prison placement Now with acute CHF exacerbation, BNP over 35,000, 4+ pitting edema, urine output with diuresis has been lackluster, switch to Bumex 1 mg IV every 8 hours with albumin for hypoalbuminemia 1 dose of metolazone, monitoring output monitor creatinine, Attestations 2 Medical Necessity Statement*: Patient requires hospitalization for CHF exacerbation, requiring IV diuresis, Diagnoses Acute on chronic diastolic congestive heart failure I50.33 Heart failure chronicity: acute on chronic Heart failure type: diastolic Abdominal pain R10.9 Recurrent UTI N39.0 Primary hypertension I10 Hypertension type: primary hypertension CAD (coronary artery disease) I25.10 Atrial fibrillation I48.91 Chronic gout due to renal impairment involving ankle without tophus, unspecified laterality M1A.3790 Gout site: ankle Gout etiology: due to renal impairment Chronicity: chronic Laterality: unspecified laterality Presence of tophus: without tophus GERD (gastroesophageal reflux disease) K21.9 Anxiety F41.9 Sepsis A41.9; R65.20; N17.8 Acute renal failure type: with other specified pathological lesion Sepsis acute organ dysfunction status: with acute organ dysfunction Sepsis type: sepsis due to unspecified organism Severe sepsis acute organ dysfunction type: acute renal failure Severe sepsis shock status: without septic shock Acute on chronic renal insufficiency N28.9; N18.9 Staphylococcus aureus bacteremia R78.81; B95.61 Bloodstream infection due to Port-A-Cath T80.211A Physical deconditioning R53.81 History of pacemaker Z95.0 NSTEMI (non-ST elevated myocardial infarction) I21.4
[2023-10-26] MEDS: bumetanide 0.25 mg/mL SDV 4 mL 1 MG IVP (18:28)
[2023-10-27] VITALS (8 sets, daily range): BP systolic 113–134; BP diastolic 50–75; PULSE 10–72; RESP 16–17; TEMP 36.4–37.2; O2SAT 90–95
[2023-10-27] MEDS: bumetanide 0.25 mg/mL SDV 4 mL 1 MG IVP ×3 (03:10→20:06)
[2023-10-27] MEDS: albumin 25 G/100 ML BAG 60 G IV ×3 (03:10→20:05)
[2023-10-27] MEDS: ceFAZolin 2,000 MG in sodium chloride 0.9% (plus) 50 ML 100 MG IV ×3 (05:03→23:37)
[2023-10-27] MEDS: metoprolol tartrate 25 mg Tablet PO ×2 (05:06→18:12)
[2023-10-27] MEDS: potassium chloride ER 20 mEq Tablet PO ×2 (05:06→18:12)
[2023-10-27] MEDS: apixaban 5 mg Tablet 10 MG PO ×2 (05:06→18:12)
[2023-10-27 06:39] LABS: Basophils # 0.1 10^3/uL (0.0-0.1); Basophils % 0.9 %; Eosinophils # 0.1 10^3/uL (0.0-0.8); Hematocrit 26.3 % (36-47); Lymphocytes # 0.9 10^3/uL (0.8-4.8); Lymphocytes % 9.4 %; Mean Corpuscular HGB Conc 31.6 g/dL (30-55); Mean Corpuscular Hemoglobin 30.5 pg (27-33); Mean Corpuscular Volume 96.7 fl (85-98); Mean Platelet Volume 10.5 fL (7.4-10.4); Monocytes # 0.7 10^3/uL (0.2-0.9); Monocytes % 7.5 %; Neutrophils # 7.47 10^3/uL (1.8-7.7); Neutrophils % 80.9 %; Nucleated Red Blood Cells % 0 %; Platelet Count 159 10^3/cmm (157-399); Red Blood Count 2.72 10^6/uL (3.85-5.65); Red Cell Distribution Width 18.5 % (12.1-15.1); White Blood Count 9.23 10^3/uL (3.29-11.43)
[2023-10-27 07:04] LABS: Alanine Aminotransferase < 5 U/L (0-33); Albumin Level 3.6 g/dL (3.5-5.2); Alkaline Phosphatase 408 U/L (35-105); Anion Gap 19.7 (5-19); Aspartate Amino Transferase 48 U/L (0-32); Blood Urea Nitrogen 34 mg/dL (8-23); Calcium 8.9 mg/dL (8.5-10.5); Carbon Dioxide 24 mmol/L (22-29); Chloride 93 mmol/L (98-107); Creatinine Clr Calc Pharmacy 25.6456; Glucose 89 mg/dL (65-115); Osmolality Calculated 283 mOsm/kg (285-295); Potassium 3.7 mmol/L (3.5-5.1); Sodium 133 mmol/L (136-145); Total Protein 6.6 g/dL (6.6-8.7)
[2023-10-27 08:00] LABS: NT Pro B Type Natriuretic Pept 34785 pg/mL (0-125)
[2023-10-27] MEDS: sertraline 100 mg Tablet PO (08:57)
[2023-10-27] MEDS: atorvastatin 40 mg Tablet PO (08:57)
[2023-10-27] MEDS: metOLazone 5 MG Tablet PO (08:57)
[2023-10-27] MEDS: bisacodyl 5 mg Tablet PO (08:57)
[2023-10-27] MEDS: allopurinol 100 mg Tablet 400 MG PO (08:58)
[2023-10-27] MEDS: clopidogrel 75 mg Tablet PO (08:58)
--- NOTE | 2023-10-27 10:52 | PC.NURSE ---
Patient had two large bowel movements which were soft in form.
[2023-10-27] MEDS: ondansetron 4 MG Tablet PO (12:59)
[2023-10-27 13:08] LABS: Blood Urea Nitrogen 34 mg/dL (8-23); Calcium 9.3 mg/dL (8.5-10.5); Carbon Dioxide 22 mmol/L (22-29); Chloride 93 mmol/L (98-107); Creatinine Clr Calc Pharmacy 26.8668; Glucose 103 mg/dL (65-115); Osmolality Calculated 280 mOsm/kg (285-295); Sodium 131 mmol/L (136-145)
[2023-10-27 13:12] LABS: Anion Gap 20.1 (5-19); Potassium 4.1 mmol/L (3.5-5.1)
--- NOTE | 2023-10-27 13:42 | P.PN_ITS ---
Subjective 2 Subjective: Patient was seen this morning, she is reporting constipation, she does report some shortness of breath this morning, persistent lower extremity edema, diuresis has been lackluster, Vitals/I&O/Wt Last Vital Signs Temp 98.3 F 10/27/23 08:00 Pulse 70 10/27/23 08:00 Resp 17 10/27/23 08:00 BP 119/63 10/27/23 08:00 Pulse Ox 95 10/27/23 08:00 O2 Del Method Room Air 10/27/23 07:58 O2 Flow Rate 2 10/17/23 07:40 10/26/23 10/27/23 10/27/23 22:59 06:59 14:59 Intake Total 750 / 1860 390 / 2250 240 / 240 Output Total 600 / 600 1450 / 2050 Balance 150 / 1260 -1060 / 200 240 / 240 Weight last 48 hrs Weight 87.657 kg Weight 86.636 kg Physical Exam 2 Const: COMMON NORMALS: no acute distress and patient oriented x3 Resp: COMMON NORMALS: normal respiratory effort, No retractions and No use of accessory muscles Cardio: COMMON NORMALS: regular rate, regular rhythm, S1 normal heart sound present and S2 normal heart sound present RATE: regular rate RHYTHM: r egular rhythm HEART SOUNDS: S1 normal heart sound present and S2 normal heart sound present GI: COMMON NORMALS: Normal to inspection, nondistended, normoactive bowel sounds present and non-tender Extremity: NARRATIVE EXTREMITY EXAM: 2+ pitting edema Neuro: COMMON NORMALS: patient oriented x3 Psych: COMMON NORMALS: mental status grossly normal Urinary Catheter Management: Estes: Cath Placed During This Visit: yes Reason for Continuing Indwelling Catheter: Other Urinary Catheter Date of Insertion: 10/14/23 Urinary Catheter Time of Insertion: 22:15 Data 10/27/23 05:18 10/27/23 12:34 A&P Assessment and plan (1) Congestive heart failure: Qualifiers: Heart failure chronicity: acute on chronic Heart failure type: d iastolic Qualified Code(s): I50.33 - Acute on chronic diastolic (congestive) heart failure (2) Abdominal pain: (3) Recurrent UTI: (4) HTN (hypertension): Qualifiers: Hypertension type: primary hypertension Qualified Code(s): I10 - Essential (primary) hypertension (5) CAD (coronary artery disease): (6) Atrial fibrillation: (7) Gout: Qualifiers: Gout site: ankle Gout etiology: due to renal impairment Chronicity: c hronic Laterality: unspecified laterality Presence of tophus: without tophus Qualified Code(s): 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, unspecified ankle and foot, without tophus (tophi) (8) GERD (gastroesophageal reflux disease): (9) Anxiety: (10) Sepsis: Qualifiers: Acute renal failure type: with other specified pathological lesion S epsis acute organ dysfunction status: with acute organ dysfunction Sepsis type: sepsis due to unspecified organism Severe sepsis acute organ dysfunction type: acute renal failure Severe sepsis shock status: without septic shock Qualified Code(s): A41.9 - Sepsis, unspecified organism; R65.20 - Severe sepsis without septic shock; N17.8 - Other acute kidney failure (11) Acute on chronic renal insufficiency: (12) Staphylococcus aureus bacteremia: (13) Bloodstream infection due to Port-A-Cath: (14) Physical deconditioning: (15) History of pacemaker: (16) NSTEMI (non-ST elevated myocardial infarction): Plan Staph aureus bacteremia, Mediport staph infection ? Initial set of blood cultures positive for Staph aureus -catheter tip culture positive for Staph aureus ? Chest wound cultures positive for Staph aureus ? Status post Mediport removal ? Plan ? Repeat blood cultures are pending, negative so far ? PICC line to be placed ? Antibiotic therapy has been tailored to cefazolin, will need a total of 6 weeks from negative blood culture ? Infectious disease consulted ? Patient does have a pacemaker in place, if patient develops worsening leukocytosis, fevers, recurrent bacteremia, will have to consider transesophageal echocardiogram New onset hematuria in spite of improved platelet-likely UTI, has Estes catheter in place Resolved UA with evidence of UTI Resume Eliquis and Plavix for now. Will monitor Right cephalic vein occlusive thrombosis ? I do not believe this is a failure of anticoagulation, as patient's Eliquis and Plavix was on hold for at least 48 hours due to hematuria ? Patient was monitored on heparin drip for 24 hours ? Will switch her to Eliquis 10 mg twice daily for 7 days followed by 5 mg twice daily Thrombocytopenia Associated with Protonix, ? Monitor Jaundice, scleral icterus, with hyperbilirubinemia, elevated LFTs, elevated alk phos -Liver ultrasound shows morphologic features suggesting liver cirrhosis - liver function studies monitoring ? Ordere CT scan abdomen pelvis with IV contrast ? CT/CT abdomen pelvis w con* [id number] IMPRESSION: 1. No evidence of liver abscess. 2. Prior cholecystectomy. 3. No intrahepatic biliary ductal dilatation. 4. Slightly cirrhotic configuration to the liver with fatty infiltration. 5. Diffuse body wall anasarca with mild pelvic ascites. Slight perihepatic ascites. 6. Small bilateral pleural effusions with compressive atelectasis in the lung bases. 7. Atrophic RIGHT kidney -cannot do mrcp given pacemaker -Given patient's persistent hyperbilirubinemia, elevated alk phos, LFTs, and recent cholecystectomy, etiology concerning for biliary injury vs biliary stricture vs ampula federica dysfunction vs cholestatic jaundice ? Spoke to general surgery, Dr. Amaya, patient in August had a cholecystectomy, recommended consultation with GI ? Spoke to hepatobiliary at [facility] in [place], recommended medical management, no acute interventions, with out patient follow up NSTEMI ? Type I versus type II ? No chest pain complaints, ? Cath in 2022 showed ?Conclusions 1. Critical in-stent restenosis of 2. SVG to diagonal artery prior stent. Status post successful revascularization with balloon angioplasty. Severe stenosis of SVG to diagonal artery proximal to prior stent. S/p successful revascularization with 1 stent.. 3. Patient has prior CABG. ? Stress test in September 2023 IMPRESSIONS 1. Abnormal myocardial perfusion imaging with large areas of prior infarct with minimal jodi-infarct ischemia seen in all 3 coronary artery territories. 2. LV systolic function is moderately reduced with EF of 41%. ? Echocardiogram CONCLUSIONS Severe diffuse hypokinesia of the left ventricule with an ejection fraction of 20%. Moderate biatrial enlargement. Defibrillator/pacemaker wire in the event right atrium and ventricle Minimally thickened aortic and mitral valves. There is no pericardial effusion. No intracardiac or vegetations were noted . Compared to the study from 10/05/2023, the ejection fraction has decreased from 30% to 20% ? Plan ? Spoke to cardiology, recommended medical management ? Continue Plavix ? Continue Eliquis, ? Continue telemetry monitoring ? Monitor for chest pain Physical deconditioning, protein calorie malnutrition ? PT OT ? Protein shakes twice daily Sepsis: Resolved leukocytosis resolved Clinically improving and looks much better as compared to admission Source: Likely secondary to Mediport site infection s/p Mediport removal Continue IV vancomycin since blood cultures, catheter report culture and wound culture showed coagulase positive Staph aureus Off Levophed, maintaining systolic blood pressure in 120s Supportive care and wound care (2) BERNADETTE (acute kidney injury): BERNADETTE on CKD stage II, creatinine 1.7 today, hold off on diuresis Discontinue lactated Ringer (3) Congestive heart failure: Currently in exacerbation Heart failure with reduced ejection Status post IV fluid boluses in ED, she is very high risk for CHF exacerbation Continue beta srikanth Echocardiogram shows EF of 20% (4) HTN (hypertension): (5) CAD (coronary artery disease): plavix (6) Atrial fibrillation: apixaban (7) Gout: allopurinol for now (8) GERD (gastroesophageal reflux disease): (9) Anxiety: Continue home Xanax Continue home SSRI Cardiac diet DVT prophylaxis: Apixaban CODE STATUS: Full code Will require correction placement Now with acute CHF exacerbation, BNP over 35,000, 4+ pitting edema, urine output with diuresis has been lackluster, switch to Bumex 1 mg IV every 8 hours with albumin for hypoalbuminemia 1 dose of metolazone, monitoring output monitor creatinine, Attestations 2 Medical Necessity Statement*: Patient requires hospitalization for further diuresis, urine output has been lackluster, BNP over 34,000 continues to have pitting edema, complains of shortness of breath will continue to diurese Diagnoses Acute on chronic diastolic congestive heart failure I50.33 Heart failure chronicity: acute on chronic Heart failure type: diastolic Abdominal pain R10.9 Recurrent UTI N39.0 Primary hypertension I10 Hypertension type: primary hypertension CAD (coronary artery disease) I25.10 Atrial fibrillation I48.91 Chronic gout due to renal impairment involving ankle without tophus, unspecified laterality M1A.3790 Gout site: ankle Gout etiology: due to renal impairment Chronicity: chronic Laterality: unspecified laterality Presence of tophus: without tophus GERD (gastroesophageal reflux disease) K21.9 Anxiety F41.9 Sepsis A41.9; R65.20; N17.8 Acute renal failure type: with other specified pathological lesion Sepsis acute organ dysfunction status: with acute organ dysfunction Sepsis type: sepsis due to unspecified organism Severe sepsis acute organ dysfunction type: acute renal failure Severe sepsis shock status: without septic shock Acute on chronic renal insufficiency N28.9; N18.9 Staphylococcus aureus bacteremia R78.81; B95.61 Bloodstream infection due to Port-A-Cath T80.211A Physical deconditioning R53.81 History of pacemaker Z95.0 NSTEMI (non-ST elevated myocardial infarction) I21.4
--- NOTE | 2023-10-27 17:46 | PC.NURSE ---
Contact Tori Robles when patient is discharged. Patient's is out of town working.
[2023-10-27 22:12] LABS: Blood Urea Nitrogen 34 mg/dL (8-23); Calcium 9.3 mg/dL (8.5-10.5); Carbon Dioxide 26 mmol/L (22-29); Chloride 92 mmol/L (98-107); Creatinine Clr Calc Pharmacy 28.2102; Glucose 119 mg/dL (65-115); Osmolality Calculated 283 mOsm/kg (285-295); Sodium 132 mmol/L (136-145)
[2023-10-27 22:19] LABS: Anion Gap 18.2 (5-19); Potassium 4.2 mmol/L (3.5-5.1)
[2023-10-28 00:33] VITALS: BP 119/71; PULSE 70; RESP 16; TEMP 37.1; O2SAT 92
[2023-10-28] MEDS: bumetanide 0.25 mg/mL SDV 4 mL 1 MG IVP ×3 (03:50→19:59)
[2023-10-28 05:20] LABS: Basophils # 0.1 10^3/uL (0.0-0.1); Basophils % 1.4 %; Eosinophils # 0.1 10^3/uL (0.0-0.8); Eosinophils % 0.6 %; Lymphocytes % 11.5 %; Mean Corpuscular HGB Conc 32.3 g/dL (30-55); Mean Corpuscular Hemoglobin 31.5 pg (27-33); Mean Corpuscular Volume 97.4 fl (85-98); Mean Platelet Volume 10.1 fL (7.4-10.4); Monocytes # 0.8 10^3/uL (0.2-0.9); Monocytes % 8.3 %; Neutrophils # 7.04 10^3/uL (1.8-7.7); Neutrophils % 77.4 %; Nucleated Red Blood Cells % 0 %; Platelet Count 159 10^3/cmm (157-399); Red Blood Count 2.67 10^6/uL (3.85-5.65); Red Cell Distribution Width 18.7 % (12.1-15.1); White Blood Count 9.08 10^3/uL (3.29-11.43)
[2023-10-28 05:27] VITALS: BP 123/65; PULSE 70; RESP 16; TEMP 36.4; O2SAT 92
[2023-10-28] MEDS: albumin 25 G/100 ML BAG 60 G IV ×3 (05:47→20:49)
[2023-10-28] MEDS: potassium chloride ER 20 mEq Tablet PO ×2 (05:51→17:35)
[2023-10-28] MEDS: apixaban 5 mg Tablet 10 MG PO ×2 (05:51→17:35)
[2023-10-28] MEDS: metoprolol tartrate 25 mg Tablet PO ×2 (05:51→17:35)
[2023-10-28 06:55] LABS: Albumin Level 3.8 g/dL (3.5-5.2); Potassium 4.3 mmol/L (3.5-5.1)
[2023-10-28] MEDS: ceFAZolin 2,000 MG in sodium chloride 0.9% (plus) 50 ML 100 MG IV ×3 (07:32→22:33)
[2023-10-28 07:40] LABS: Calcium 9.1 mg/dL (8.5-10.5); Carbon Dioxide 23 mmol/L (22-29); Globulin 2.4 g/dL (1.3-4.6); Glucose 103 mg/dL (65-115)
[2023-10-28 07:53] LABS: Anion Gap 22.3 (5-19); Blood Urea Nitrogen 35 mg/dL (8-23); Chloride 92 mmol/L (98-107); Osmolality Calculated 284 mOsm/kg (285-295); Sodium 133 mmol/L (136-145)
[2023-10-28 07:54] LABS: Alkaline Phosphatase 403 U/L (35-105); Creatinine Clr Calc Pharmacy 25.6456; Total Bilirubin 2.3 mg/dL (0.15-1.2); Total Protein 6.2 g/dL (6.6-8.7)
[2023-10-28 07:58] LABS: Aspartate Amino Transferase 53 U/L (0-32)
[2023-10-28 08:00] VITALS: BP 134/61; PULSE 72; RESP 15; TEMP 36.7; O2SAT 95
[2023-10-28 08:09] LABS: NT Pro B Type Natriuretic Pept 40336 pg/mL (0-125)
[2023-10-28] MEDS: metOLazone 5 MG Tablet 10 MG PO (09:11)
[2023-10-28] MEDS: allopurinol 100 mg Tablet 400 MG PO (09:11)
[2023-10-28] MEDS: clopidogrel 75 mg Tablet PO (09:12)
[2023-10-28] MEDS: sertraline 100 mg Tablet PO (09:12)
[2023-10-28] MEDS: ascorbic acid 500 mg Tablet PO (09:12)
[2023-10-28] MEDS: atorvastatin 40 mg Tablet PO (09:12)
[2023-10-28 09:19] LABS: Alanine Aminotransferase < 5 U/L (0-33)
[2023-10-28] MEDS: HYDROcodone-acetaminophen 5-325 mg Tablet 1 TAB PO (09:24)
[2023-10-28 12:00] VITALS: PULSE 76; RESP 16; TEMP 36.8; O2SAT 96
[2023-10-28 13:24] LABS: SARS Covid-2 Antigen negative (Negative)
--- NOTE | 2023-10-28 14:00 | PM.PN ---
Subjective Subjective: Patient was seen this morning, her edema is improving, her shortness of breath is improving, still reports feeling weak and fatigued Vitals/I&O/Wt Last Vital Signs Temp 98.1 F 10/28/23 08:00 Pulse 72 10/28/23 08:00 Resp 15 10/28/23 08:00 BP 134/61 10/28/23 08:00 Pulse Ox 95 10/28/23 08:00 O2 Del Method Room Air 10/28/23 08:00 O2 Flow Rate 2 10/17/23 07:40 10/27/23 10/28/23 10/28/23 22:59 06:59 14:59 Intake Total 340 / 970 170 / 1140 150 / 150 Output Total 1800 / 1800 550 / 550 Balance 340 / 970 -1630 / -660 -400 / -400 Weight last 48 hrs Weight 87.657 kg Weight 87.657 kg Physical Exam Const: COMMON NORMALS: no acute distress and patient oriented x3 Resp: COMMON NORMALS: normal respiratory effort, No retractions, No use of accessory muscles and clear to auscultation bilaterally AUSCULTATION: clear to auscultation bilaterally Cardio: COMMON NORMALS: regular rate, regular rhythm, S1 normal heart sound present and S2 normal heart sound present RATE: regular rate RHYTHM: regular rhythm HEART SOUNDS: S1 normal heart sound present and S2 normal heart sound present GI: COMMON NORMALS: Normal to inspection, nondistended, normoactive bowel sounds present and non-tender Extremity: NARRATIVE EXTREMITY EXAM: 1+ pitting edema Neuro: COMMON NORMALS: patient oriented x3 Psych: COMMON NORMALS: mental status grossly normal Urinary Catheter Management: Estes: Cath Placed During This Visit: yes Reason for Continuing Indwelling Catheter: Other Urinary Catheter Date of Insertion: 10/14/23 Urinary Catheter Time of Insertion: 22:15 Data 10/28/23 04:46 10/28/23 06:08 A&P Assessment and plan (1) Congestive heart failure: Qualifiers: Heart failure chronicity: acute on chronic Heart failure type: diastolic Qualified Code(s): I50.33 - Acute on chronic diastolic (congestive) heart failure (2) Abdominal pain: (3) Recurrent UTI: (4) HTN (hypertension): Qualifiers: Hypertension type: primary hypertension Qualified Code(s): I10 - Essential (primary) hypertension (5) CAD (coronary artery disease): (6) Atrial fibrillation: (7) Gout: Qualifiers: Gout site: ankle Gout etiology: due to renal impairment Chronicity: chronic Laterality: unspecified laterality Presence of tophus: without tophus Qualified Code(s): 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, unspecified ankle and foot, without tophus (tophi) (8) GERD (gastroesophageal reflux disease): (9) Anxiety: (10) Sepsis: Qualifiers: Acute renal failure type: with other specified pathological lesion Sepsis acute organ dysfunction status: with acute organ dysfunction Sepsis type: sepsis due to unspecified organism Severe sepsis acute organ dysfunction type: acute renal failure Severe sepsis shock status: without septic shock Qualified Code(s): A41.9 - Sepsis, unspecified organism; R65.20 - Severe sepsis without septic shock; N17.8 - Other acute kidney failure (11) Acute on chronic renal insufficiency: (12) Staphylococcus aureus bacteremia: (13) Bloodstream infection due to Port-A-Cath: (14) Physical deconditioning: (15) History of pacemaker: (16) NSTEMI (non-ST elevated myocardial infarction): (17) Acute exacerbation of CHF (congestive heart failure): Plan Staph aureus bacteremia, Mediport staph infection ? Initial set of blood cultures positive for Staph aureus -catheter tip culture positive for Staph aureus ? Chest wound cultures positive for Staph aureus ? Status post Mediport removal ? Plan ? Repeat blood cultures are pending, negative so far ? PICC line to be placed ? Antibiotic therapy has been tailored to cefazolin, will need a total of 6 weeks from negative blood culture ? Infectious disease consulted ? Patient does have a pacemaker in place, if patient develops worsening leukocytosis, fevers, recurrent bacteremia, will have to consider transesophageal echocardiogram New onset hematuria in spite of improved platelet-likely UTI, has Estes catheter in place Resolved UA with evidence of UTI Resume Eliquis and Plavix for now. Will monitor Right cephalic vein occlusive thrombosis ? I do not believe this is a failure of anticoagulation, as patient's Eliquis and Plavix was on hold for at least 48 hours due to hematuria ? Patient was monitored on heparin drip for 24 hours ? Will switch her to Eliquis 10 mg twice daily for 7 days followed by 5 mg twice daily Thrombocytopenia Associated with Protonix, ? Monitor Jaundice, scleral icterus, with hyperbilirubinemia, elevated LFTs, elevated alk phos -Liver ultrasound shows morphologic features suggesting liver cirrhosis - liver function studies monitoring ? Ordere CT scan abdomen pelvis with IV contrast ? CT/CT abdomen pelvis w con* [id number] IMPRESSION: 1. No evidence of liver abscess. 2. Prior cholecystectomy. 3. No intrahepatic biliary ductal dilatation. 4. Slightly cirrhotic configuration to the liver with fatty infiltration. 5. Diffuse body wall anasarca with mild pelvic ascites. Slight perihepatic ascites. 6. Small bilateral pleural effusions with compressive atelectasis in the lung bases. 7. Atrophic RIGHT kidney -cannot do mrcp given pacemaker -Given patient's persistent hyperbilirubinemia, elevated alk phos, LFTs, and recent cholecystectomy, etiology concerning for biliary injury vs biliary stricture vs ampula federica dysfunction vs cholestatic jaundice ? Spoke to general surgery, Dr. Amaya, patient in August had a cholecystectomy, recommended consultation with GI ? Spoke to hepatobiliary at [facility] in [place], recommended medical management, no acute interventions, with out patient follow up NSTEMI ? Type I versus type II ? No chest pain complaints, ? Cath in 2022 showed ?Conclusions 1. Critical in-stent restenosis of 2. SVG to diagonal artery prior stent. Status post successful revascularization with balloon angioplasty. Severe stenosis of SVG to diagonal artery proximal to prior stent. S/p successful revascularization with 1 stent.. 3. Patient has prior CABG. ? Stress test in September 2023 IMPRESSIONS 1. Abnormal myocardial perfusion imaging with large areas of prior infarct with minimal jodi-infarct ischemia seen in all 3 coronary artery territories. 2. LV systolic function is moderately reduced with EF of 41%. ? Echocardiogram CONCLUSIONS Severe diffuse hypokinesia of the left ventricule with an ejection fraction of 20%. Moderate biatrial enlargement. Defibrillator/pacemaker wire in the event right atrium and ventricle Minimally thickened aortic and mitral valves. There is no pericardial effusion. No intracardiac or vegetations were noted . Compared to the study from 10/05/2023, the ejection fraction has decreased from 30% to 20% ? Plan ? Spoke to cardiology, recommended medical management ? Continue Plavix ? Continue Eliquis, ? Continue telemetry monitoring ? Monitor for chest pain Physical deconditioning, protein calorie malnutrition ? PT OT ? Protein shakes twice daily Sepsis: Resolved leukocytosis resolved Clinically improving and looks much better as compared to admission Source: Likely secondary to Mediport site infection s/p Mediport removal Continue IV vancomycin since blood cultures, catheter report culture and wound culture showed coagulase positive Staph aureus Off Levophed, maintaining systolic blood pressure in 120s Supportive care and wound care (2) BERNADETTE (acute kidney injury): BERNADETTE on CKD stage II, creatinine 1.7 today, hold off on diuresis Discontinue lactated Ringer (3) Congestive heart failure: Currently in exacerbation Heart failure with reduced ejection Status post IV fluid boluses in ED, she is very high risk for CHF exacerbation Continue beta srikanth Echocardiogram shows EF of 20% (4) HTN (hypertension): (5) CAD (coronary artery disease): plavix (6) Atrial fibrillation: apixaban (7) Gout: allopurinol for now (8) GERD (gastroesophageal reflux disease): (9) Anxiety: Continue home Xanax Continue home SSRI Cardiac diet DVT prophylaxis: Apixaban CODE STATUS: Full code Will require group home placement Now with acute CHF exacerbation, 2+ pitting edema 1 dose of p.o. metolazone 10 mg, Bumex 1 mg every 8 hours, monitor urine output monitor creatinine Attestations Medical Necessity Statement*: Patient requires hospitalization for acute CHF exacerbation Diagnoses Acute on chronic diastolic congestive heart failure I50.33 Heart failure chronicity: acute on chronic Heart failure type: diastolic Abdominal pain R10.9 Recurrent UTI N39.0 Primary hypertension I10 Hypertension type: primary hypertension CAD (coronary artery disease) I25.10 Atrial fibrillation I48.91 Chronic gout due to renal impairment involving ankle without tophus, unspecified laterality M1A.3790 Gout site: ankle Gout etiology: due to renal impairment Chronicity: chronic Laterality: unspecified laterality Presence of tophus: without tophus GERD (gastroesophageal reflux disease) K21.9 Anxiety F41.9 Sepsis A41.9; R65.20; N17.8 Acute renal failure type: with other specified pathological lesion Sepsis acute organ dysfunction status: with acute organ dysfunction Sepsis type: sepsis due to unspecified organism Severe sepsis acute organ dysfunction type: acute renal failure Severe sepsis shock status: without septic shock Acute on chronic renal insufficiency N28.9; N18.9 Staphylococcus aureus bacteremia R78.81; B95.61 Bloodstream infection due to Port-A-Cath T80.211A Physical deconditioning R53.81 History of pacemaker Z95.0 NSTEMI (non-ST elevated myocardial infarction) I21.4 Acute exacerbation of CHF (congestive heart failure) I50.9
[2023-10-28 14:33] LABS: Blood Urea Nitrogen 36 mg/dL (8-23); Calcium 9.5 mg/dL (8.5-10.5); Carbon Dioxide 27 mmol/L (22-29); Chloride 92 mmol/L (98-107); Creatinine Clr Calc Pharmacy 26.8668; Glucose 97 mg/dL (65-115); Osmolality Calculated 282 mOsm/kg (285-295); Sodium 132 mmol/L (136-145)
[2023-10-28 14:37] LABS: Anion Gap 17.5 (5-19); Potassium 4.5 mmol/L (3.5-5.1)
[2023-10-28] MEDS: polyethylene glycol 3350 Pkt 17 gm PO (15:30)
[2023-10-28 16:00] VITALS: BP 137/50; PULSE 70; RESP 16; TEMP 36.4; O2SAT 91
[2023-10-28 20:00] VITALS: BP 145/70; PULSE 69; RESP 18; TEMP 36.4; O2SAT 95
[2023-10-28] MEDS: bisacodyl 5 mg Tablet PO (20:48)
[2023-10-29] VITALS (7 sets, daily range): BP systolic 126–136; BP diastolic 53–72; PULSE 69–73; RESP 15–18; TEMP 36.4–36.8; O2SAT 91–94
[2023-10-29] MEDS: bumetanide 0.25 mg/mL SDV 4 mL 1 MG IVP (04:10)
[2023-10-29] MEDS: metoprolol tartrate 25 mg Tablet PO ×2 (05:23→17:16)
[2023-10-29] MEDS: apixaban 5 mg Tablet 10 MG PO ×2 (05:23→17:16)
[2023-10-29] MEDS: potassium chloride ER 20 mEq Tablet PO ×2 (05:23→17:15)
[2023-10-29] MEDS: albumin 25 G/100 ML BAG 60 G IV ×2 (05:37→12:46)
[2023-10-29 06:07] LABS: Basophils # 0.1 10^3/uL (0.0-0.1); Basophils % 1.2 %; Eosinophils # 0.1 10^3/uL (0.0-0.8); Hematocrit 26.3 % (36-47); Lymphocytes # 1.1 10^3/uL (0.8-4.8); Lymphocytes % 11.6 %; Mean Corpuscular HGB Conc 31.2 g/dL (30-55); Mean Corpuscular Hemoglobin 30.7 pg (27-33); Mean Corpuscular Volume 98.5 fl (85-98); Mean Platelet Volume 11.3 fL (7.4-10.4); Monocytes # 0.8 10^3/uL (0.2-0.9); Neutrophils # 7.28 10^3/uL (1.8-7.7); Neutrophils % 77.5 %; Nucleated Red Blood Cells % 0 %; Platelet Count 193 10^3/cmm (157-399); Red Blood Count 2.67 10^6/uL (3.85-5.65); Red Cell Distribution Width 19.2 % (12.1-15.1); White Blood Count 9.39 10^3/uL (3.29-11.43)
[2023-10-29 06:40] LABS: Blood Urea Nitrogen 37 mg/dL (8-23); Calcium 9.5 mg/dL (8.5-10.5); Carbon Dioxide 25 mmol/L (22-29); Chloride 91 mmol/L (98-107); Glucose 106 mg/dL (65-115); Osmolality Calculated 283 mOsm/kg (285-295); Sodium 132 mmol/L (136-145)
[2023-10-29 06:45] LABS: Creatinine Clr Calc Pharmacy 26.1595
[2023-10-29 06:46] LABS: Anion Gap 20.3 (5-19); Potassium 4.3 mmol/L (3.5-5.1)
[2023-10-29 07:04] LABS: NT Pro B Type Natriuretic Pept 43072 pg/mL (0-125)
[2023-10-29] MEDS: ceFAZolin 2,000 MG in sodium chloride 0.9% (plus) 50 ML 100 MG IV ×3 (08:05→23:17)
[2023-10-29] MEDS: clopidogrel 75 mg Tablet PO (08:06)
[2023-10-29] MEDS: allopurinol 100 mg Tablet 400 MG PO (08:06)
[2023-10-29] MEDS: sertraline 100 mg Tablet PO (08:06)
[2023-10-29] MEDS: atorvastatin 40 mg Tablet PO (08:06)
[2023-10-29] MEDS: metOLazone 5 MG Tablet 10 MG PO (10:50)
--- NOTE | 2023-10-29 12:44 | P.PN_ITS ---
Subjective 2 Subjective: Patient was seen this morning, she tells me her edema is improving shortness of breath is improving, no nausea, no vomiting Vitals/I&O/Wt Last Vital Signs Temp 97.5 F L 10/29/23 08:00 Pulse 70 10/29/23 09:00 Resp 16 10/29/23 09:00 BP 136/71 10/29/23 08:00 Pulse Ox 94 10/29/23 09:00 O2 Del Method Room Air 10/29/23 09:00 O2 Flow Rate 2 10/17/23 07:40 10/28/23 10/29/23 10/29/23 22:59 06:59 14:59 Intake Total 370 / 760 530 / 1290 150 / 150 Output Total 700 / 1250 500 / 1750 700 / 700 Balance -330 / -490 30 / -460 -550 / -550 Weight last 48 hrs Weight 83.098 kg Weight 87.657 kg Physical Exam 2 Const: COMMON NORMALS: no acute distress and patient oriented x3 Resp: COMMON NORMALS: normal respiratory effort, No retractions, No use of accessory muscles and clear to auscultation bilaterally AUSCULTATION: clear to auscultation bilaterally Cardio: COMMON NORMALS: regular rate, regular rhythm, S1 normal heart sound present and S2 normal heart sound present RATE: regular rate RHYTHM: r egular rhythm HEART SOUNDS: S1 normal heart sound present and S2 normal heart sound present GI: COMMON NORMALS: Normal to inspection, nondistended, normoactive bowel sounds present and non-tender Extremity: NARRATIVE EXTREMITY EXAM: 1+ edema Neuro: COMMON NORMALS: patient oriented x3 Psych: COMMON NORMALS: mental status grossly normal Urinary Catheter Management: Estes: Cath Placed During This Visit: yes Reason for Continuing Indwelling Catheter: Accurate Measurement of Urinary Output in Critically Ill Patients Urinary Catheter Date of Insertion: 10/14/23 Urinary Catheter Time of Insertion: 22:15 Data 10/29/23 05:51 10/29/23 05:51 A&P Assessment and plan (1) Congestive heart failure: Qualifiers: Heart failure chronicity: acute on chronic Heart failure type: d iastolic Qualified Code(s): I50.33 - Acute on chronic diastolic (congestive) heart failure (2) Abdominal pain: (3) Recurrent UTI: (4) HTN (hypertension): Qualifiers: Hypertension type: primary hypertension Qualified Code(s): I10 - Essential (primary) hypertension (5) CAD (coronary artery disease): (6) Atrial fibrillation: (7) Gout: Qualifiers: Gout site: ankle Gout etiology: due to renal impairment Chronicity: c hronic Laterality: unspecified laterality Presence of tophus: without tophus Qualified Code(s): 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, unspecified ankle and foot, without tophus (tophi) (8) GERD (gastroesophageal reflux disease): (9) Anxiety: (10) Sepsis: Qualifiers: Acute renal failure type: with other specified pathological lesion S epsis acute organ dysfunction status: with acute organ dysfunction Sepsis type: sepsis due to unspecified organism Severe sepsis acute organ dysfunction type: acute renal failure Severe sepsis shock status: without septic shock Qualified Code(s): A41.9 - Sepsis, unspecified organism; R65.20 - Severe sepsis without septic shock; N17.8 - Other acute kidney failure (11) Acute on chronic renal insufficiency: (12) Staphylococcus aureus bacteremia: (13) Bloodstream infection due to Port-A-Cath: (14) Physical deconditioning: (15) History of pacemaker: (16) NSTEMI (non-ST elevated myocardial infarction): (17) Acute exacerbation of CHF (congestive heart failure): Plan Staph aureus bacteremia, Mediport staph infection ? Initial set of blood cultures positive for Staph aureus -catheter tip culture positive for Staph aureus ? Chest wound cultures positive for Staph aureus ? Status post Mediport removal ? Plan ? Repeat blood cultures are pending, negative so far ? PICC line to be placed ? Antibiotic therapy has been tailored to cefazolin, will need a total of 6 weeks from negative blood culture ? Infectious disease consulted ? Patient does have a pacemaker in place, if patient develops worsening leukocytosis, fevers, recurrent bacteremia, will have to consider transesophageal echocardiogram New onset hematuria in spite of improved platelet-likely UTI, has Estes catheter in place Resolved UA with evidence of UTI Resume Eliquis and Plavix for now. Will monitor Right cephalic vein occlusive thrombosis ? I do not believe this is a failure of anticoagulation, as patient's Eliquis and Plavix was on hold for at least 48 hours due to hematuria ? Patient was monitored on heparin drip for 24 hours ? Will switch her to Eliquis 10 mg twice daily for 7 days followed by 5 mg twice daily Thrombocytopenia Associated with Protonix, ? Monitor Jaundice, scleral icterus, with hyperbilirubinemia, elevated LFTs, elevated alk phos -Liver ultrasound shows morphologic features suggesting liver cirrhosis - liver function studies monitoring ? Ordere CT scan abdomen pelvis with IV contrast ? CT/CT abdomen pelvis w con* [id number] IMPRESSION: 1. No evidence of liver abscess. 2. Prior cholecystectomy. 3. No intrahepatic biliary ductal dilatation. 4. Slightly cirrhotic configuration to the liver with fatty infiltration. 5. Diffuse body wall anasarca with mild pelvic ascites. Slight perihepatic ascites. 6. Small bilateral pleural effusions with compressive atelectasis in the lung bases. 7. Atrophic RIGHT kidney -cannot do mrcp given pacemaker -Given patient's persistent hyperbilirubinemia, elevated alk phos, LFTs, and recent cholecystectomy, etiology concerning for biliary injury vs biliary stricture vs ampula federica dysfunction vs cholestatic jaundice ? Spoke to general surgery, Dr. Amaya, patient in August had a cholecystectomy, recommended consultation with GI ? Spoke to hepatobiliary at [facility] in [place], recommended medical management, no acute interventions, with out patient follow up NSTEMI ? Type I versus type II ? No chest pain complaints, ? Cath in 2022 showed ?Conclusions 1. Critical in-stent restenosis of 2. SVG to diagonal artery prior stent. Status post successful revascularization with balloon angioplasty. Severe stenosis of SVG to diagonal artery proximal to prior stent. S/p successful revascularization with 1 stent.. 3. Patient has prior CABG. ? Stress test in September 2023 IMPRESSIONS 1. Abnormal myocardial perfusion imaging with large areas of prior infarct with minimal jodi-infarct ischemia seen in all 3 coronary artery territories. 2. LV systolic function is moderately reduced with EF of 41%. ? Echocardiogram CONCLUSIONS Severe diffuse hypokinesia of the left ventricule with an ejection fraction of 20%. Moderate biatrial enlargement. Defibrillator/pacemaker wire in the event right atrium and ventricle Minimally thickened aortic and mitral valves. There is no pericardial effusion. No intracardiac or vegetations were noted . Compared to the study from 10/05/2023, the ejection fraction has decreased from 30% to 20% ? Plan ? Spoke to cardiology, recommended medical management ? Continue Plavix ? Continue Eliquis, ? Continue telemetry monitoring ? Monitor for chest pain Physical deconditioning, protein calorie malnutrition ? PT OT ? Protein shakes twice daily Sepsis: Resolved leukocytosis resolved Clinically improving and looks much better as compared to admission Source: Likely secondary to Mediport site infection s/p Mediport removal Continue IV vancomycin since blood cultures, catheter report culture and wound culture showed coagulase positive Staph aureus Off Levophed, maintaining systolic blood pressure in 120s Supportive care and wound care (2) BERNADETTE (acute kidney injury): BERNADETTE on CKD stage II, creatinine 1.7 today, hold off on diuresis Discontinue lactated Ringer (3) Congestive heart failure: Currently in exacerbation Heart failure with reduced ejection Status post IV fluid boluses in ED, she is very high risk for CHF exacerbation Continue beta srikanth Echocardiogram shows EF of 20% (4) HTN (hypertension): (5) CAD (coronary artery disease): plavix (6) Atrial fibrillation: apixaban (7) Gout: allopurinol for now (8) GERD (gastroesophageal reflux disease): (9) Anxiety: Continue home Xanax Continue home SSRI Cardiac diet DVT prophylaxis: Apixaban CODE STATUS: Full code Will require fci placement Now with acute CHF exacerbation, 1+ pitting edema 1 dose of p.o. metolazone 10 mg, Bumex 2 mg every 12 hours, monitor urine output monitor creatinine, bnp>40,000 Attestations 2 Medical Necessity Statement*: patient requires hopitalization for acute chf exacerbation Diagnoses Acute on chronic diastolic congestive heart failure I50.33 Heart failure chronicity: acute on chronic Heart failure type: diastolic Abdominal pain R10.9 Recurrent UTI N39.0 Primary hypertension I10 Hypertension type: primary hypertension CAD (coronary artery disease) I25.10 Atrial fibrillation I48.91 Chronic gout due to renal impairment involving ankle without tophus, unspecified laterality M1A.3790 Gout site: ankle Gout etiology: due to renal impairment Chronicity: chronic Laterality: unspecified laterality Presence of tophus: without tophus GERD (gastroesophageal reflux disease) K21.9 Anxiety F41.9 Sepsis A41.9; R65.20; N17.8 Acute renal failure type: with other specified pathological lesion Sepsis acute organ dysfunction status: with acute organ dysfunction Sepsis type: sepsis due to unspecified organism Severe sepsis acute organ dysfunction type: acute renal failure Severe sepsis shock status: without septic shock Acute on chronic renal insufficiency N28.9; N18.9 Staphylococcus aureus bacteremia R78.81; B95.61 Bloodstream infection due to Port-A-Cath T80.211A Physical deconditioning R53.81 History of pacemaker Z95.0 NSTEMI (non-ST elevated myocardial infarction) I21.4 Acute exacerbation of CHF (congestive heart failure) I50.9
[2023-10-29 15:05] LABS: Blood Urea Nitrogen 36 mg/dL (8-23); Carbon Dioxide 26 mmol/L (22-29); Chloride 88 mmol/L (98-107); Glucose 111 mg/dL (65-115); Osmolality Calculated 281 mOsm/kg (285-295); Sodium 131 mmol/L (136-145)
[2023-10-29 15:06] LABS: Anion Gap 21.1 (5-19); Creatinine Clr Calc Pharmacy 26.1595; Potassium 4.1 mmol/L (3.5-5.1)
[2023-10-29] MEDS: bumetanide 0.25 mg/mL SDV 10 mL 2 MG IVP (15:28)
--- NOTE | 2023-10-29 16:58 | ECG_ITS ---
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 Measurements Intervals [place] Rate: 71 P: 0 NM: 0 QRS: -71 QRSD: 184 T: 108 QT: 517 QTc: 564 Interpretive Statements ELECTRONIC VENTRICULAR PACEMAKER ABNORMAL RHYTHM ECG Compared to ECG 10/24/2023 20:52:34 No significant changes Electronically Signed On 10-30-2023 9:54:13 CDT by Maurisio Hammond M.D. [email or web address] hospitalClarityAd/store/[id number] f
--- NOTE | 2023-10-29 17:07 | PC.NURSE ---
Patient started to complain of chest pain 6/10. Vitals were stable and no shortness of breath. Provider is notified. Ordered EKG and troponin series.
[2023-10-29 17:34] LABS: Troponin(5th) Baseline 121 ng/L (0-10)
--- NOTE | 2023-10-29 17:38 | PC.NURSE ---
Provider is updated with patients EKG and he ordered a mag level for now also. Order entered. Patient is feeling better with no symptoms at this time.
[2023-10-29 17:55] LABS: Magnesium 1.3 mg/dL (1.7-2.3)
[2023-10-29] MEDS: magnesium sulfate premix 2 GM/50 ML PIGGYBACK IV (18:45)
[2023-10-29] MEDS: isosorbide mononitrate ER 30 mg Tablet PO (18:45)
--- NOTE | 2023-10-29 18:59 | ECG_ITS ---
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 Measurements Intervals [place] Rate: 74 P: 0 [place]: 0 QRS: -64 QRSD: 177 T: 110 QT: 515 QTc: 574 Interpretive Statements ELECTRONIC VENTRICULAR PACEMAKER ABNORMAL RHYTHM ECG Compared to ECG 10/29/2023 17:06:15 No significant changes Electronically Signed On 10-30-2023 9:58:01 CDT by Maurisio Hammond M.D. [email or web address]/[id number]
[2023-10-29 19:36] LABS: Troponin 5 2HR 110.5 ng/L (0-10); Troponin 5 2HR Delta -10.5 ABS# (0-10)
--- NOTE | 2023-10-29 22:59 | ECG_ITS ---
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 Measurements Intervals [place] Rate: 70 P: 0 [place]: 0 QRS: -68 QRSD: 174 T: 105 QT: 521 QTc: 565 Interpretive Statements ELECTRONIC VENTRICULAR PACEMAKER ABNORMAL RHYTHM ECG Compared to ECG 10/29/2023 19:44:21 No significant changes Electronically Signed On 10-30-2023 9:59:11 CDT by Maurisio Hammond M.D. [email or web address] medical [facility] shawHospitality Leaders/store/OM/[id number]/[id number]
[2023-10-29 23:23] LABS: Troponin 5 6HR 116.8 ng/L (0-10); Troponin 5 6HR Delta -4.2 ng/L (0-12)
--- NOTE | 2023-10-29 23:26 | PC.NURSE ---
Addendum entered by Cheri Pool RN 10/29/23 23:35: Dressing change to PICC also completed due to oozing blood. Original Note: Patient had small spots that were oozing blood to right shoulder and right forearm. Guaze and coverderm applied.
[2023-10-30] VITALS (22 sets, daily range): BP systolic 93–144; BP diastolic 51–77; PULSE 68–92; RESP 16–18; TEMP 36.2–36.8; O2SAT 69–98
[2023-10-30] MEDS: bumetanide 0.25 mg/mL SDV 10 mL 2 MG IVP ×2 (04:22→13:10)
[2023-10-30] MEDS: metoprolol tartrate 25 mg Tablet PO ×2 (04:22→16:56)
[2023-10-30] MEDS: potassium chloride ER 20 mEq Tablet PO ×2 (04:22→16:56)
[2023-10-30] MEDS: apixaban 5 mg Tablet 10 MG PO (04:22)
[2023-10-30 05:34] LABS: Basophils # 0.1 10^3/uL (0.0-0.1); Basophils % 1.3 %; Eosinophils # 0.1 10^3/uL (0.0-0.8); Eosinophils % 0.9 %; Hematocrit 24.8 % (36-47); Lymphocytes # 1.1 10^3/uL (0.8-4.8); Lymphocytes % 12.2 %; Mean Corpuscular HGB Conc 32.3 g/dL (30-55); Mean Corpuscular Hemoglobin 31.5 pg (27-33); Mean Corpuscular Volume 97.6 fl (85-98); Mean Platelet Volume 10.8 fL (7.4-10.4); Monocytes # 0.6 10^3/uL (0.2-0.9); Monocytes % 7.1 %; Neutrophils # 6.96 10^3/uL (1.8-7.7); Neutrophils % 78.1 %; Nucleated Red Blood Cells % 0 %; Platelet Count 209 10^3/cmm (157-399); Red Blood Count 2.54 10^6/uL (3.85-5.65); Red Cell Distribution Width 19.6 % (12.1-15.1); White Blood Count 8.92 10^3/uL (3.29-11.43)
[2023-10-30 05:54] LABS: C Reactive Protein 44.1 mg/L (0.0-4.9); Magnesium 1.6 mg/dL (1.7-2.3); Phosphorus 3.5 mg/dL (2.5-4.5)
[2023-10-30 05:59] LABS: Prothrombin Time > 120.00 SECONDS (12.1-14.9)
[2023-10-30 06:00] LABS: Blood Urea Nitrogen 37 mg/dL (8-23); Calcium 9.8 mg/dL (8.5-10.5); Carbon Dioxide 25 mmol/L (22-29); Chloride 89 mmol/L (98-107); Creatine Phosphokinase 43 U/L (26-192); Glucose 87 mg/dL (65-115); Osmolality Calculated 278 mOsm/kg (285-295); Sodium 130 mmol/L (136-145)
[2023-10-30 06:02] LABS: Anion Gap 20.3 (5-19); Potassium 4.3 mmol/L (3.5-5.1)
[2023-10-30 06:04] LABS: Troponin T (5th) Once 125 ng/L (0-10)
[2023-10-30 06:27] LABS: NT Pro B Type Natriuretic Pept 41026 pg/mL (0-125)
[2023-10-30 06:33] LABS: INR > 20.00 (0.8-1.2)
[2023-10-30] MEDS: isosorbide mononitrate ER 30 mg Tablet PO (08:11)
[2023-10-30] MEDS: allopurinol 100 mg Tablet 400 MG PO (08:11)
[2023-10-30] MEDS: ceFAZolin 2,000 MG in sodium chloride 0.9% (plus) 50 ML 100 MG IV ×3 (08:11→23:04)
[2023-10-30] MEDS: atorvastatin 40 mg Tablet PO (08:11)
[2023-10-30] MEDS: sertraline 100 mg Tablet PO (08:12)
[2023-10-30 08:18] LABS: Reflex FDPQ test REFLEX FDP QUEST TES
[2023-10-30 08:36] LABS: Fibrinogen 244 mg/dL (174-498)
[2023-10-30 08:42] LABS: Prothrombin Time > 120.00 SECONDS (12.1-14.9)
[2023-10-30 08:44] LABS: Partial Thromboplastin Time 125.9 SECONDS (23.9-36.7)
[2023-10-30 08:45] LABS: D Dimer 7.75 ug/mLFEU (0-0.59)
[2023-10-30 08:48] LABS: INR > 20.00 (0.8-1.2)
[2023-10-30] MEDS: magnesium sulfate premix 2 GM/50 ML PIGGYBACK IV (08:56)
[2023-10-30] MEDS: phytonadione (ADULT) 10 mg/mL Ampule 1 mL SUBCUT (09:49)
[2023-10-30] MEDS: HYDROcodone-acetaminophen 5-325 mg Tablet 1 TAB PO ×2 (11:14→20:10)
[2023-10-30] MEDS: sodium chloride 0.9% (100 ml) 100 ML ×3 (11:55→20:07)
--- NOTE | 2023-10-30 12:33 | P.PN_ITS ---
Subjective 2 Subjective: - Patient was seen this morning, she is sitting up in a chair, denies any fevers, chills no headache, blurry vision, -We discussed her INR greater than 20, r epeat INR shows that it remains greater than 20, discussed it with her history of DVT, her upper extremity blood clot, her NSTEMI, given that her INR is significant elevated, will give her 2 units of FFP, vitamin K monitor INR for now, repeated at noon, will ensure that INR improves, will hold her Plavix, her Eliquis until INR improves, due to her significant bleeding risk, morbidity mortality associated, she voiced understanding, all questions answered, agreed to proceed -Discussed patient creatinine being 2.2, will will give her 1 dose of Bumex today, to help with fluid overload that to some degree persist, but overall improved, she is -3 L, Vitals/I&O/Wt Last Vital Signs Temp 98 F 10/30/23 12:29 Pulse 73 10/30/23 12:29 Resp 18 10/30/23 12:29 BP 118/58 10/30/23 12:29 Pulse Ox 91 10/30/23 12:29 O2 Del Method Room Air 10/30/23 12:29 O2 Flow Rate 2 10/17/23 07:40 10/29/23 10/30/23 10/30/23 22:59 06:59 14:59 Intake Total 200 / 590 290 / 880 740 / 740 Output Total 1000 / 1700 1100 / 2800 Balance -800 / -1110 -810 / -1920 740 / 740 Weight last 48 hrs Weight 84.459 kg Weight 83.098 kg Physical Exam 2 Const: COMMON NORMALS: no acute distress and patient oriented x3 Resp: COMMON NORMALS: normal respiratory effort, No retractions, No use of accessory muscles and clear to auscultation bilaterally AUSCULTATION: clear to auscultation bilaterally Cardio: COMMON NORMALS: regular rate, regular rhythm, S1 normal heart sound present and S2 normal heart sound present RATE: regular rate RHYTHM: r egular rhythm HEART SOUNDS: S1 normal heart sound present and S2 normal heart sound present GI: COMMON NORMALS: Normal to inspection, nondistended, normoactive bowel sounds present and non-tender Extremity: NARRATIVE EXTREMITY EXAM: 1+ edema Neuro: COMMON NORMALS: patient oriented x3 Psych: COMMON NORMALS: mental status grossly normal Urinary Catheter Management: Estes: Cath Placed During This Visit: yes Reason for Continuing Indwelling Catheter: Other Urinary Catheter Date of Insertion: 10/14/23 Urinary Catheter Time of Insertion: 22:15 Data 10/30/23 05:22 10/30/23 05:22 A&P Assessment and plan (1) Congestive heart failure: Qualifiers: Heart failure chronicity: acute on chronic Heart failure type: d iastolic Qualified Code(s): I50.33 - Acute on chronic diastolic (congestive) heart failure (2) Abdominal pain: (3) Recurrent UTI: (4) HTN (hypertension): Qualifiers: Hypertension type: primary hypertension Qualified Code(s): I10 - Essential (primary) hypertension (5) CAD (coronary artery disease): (6) Atrial fibrillation: (7) Gout: Qualifiers: Gout site: ankle Gout etiology: due to renal impairment Chronicity: c hronic Laterality: unspecified laterality Presence of tophus: without tophus Qualified Code(s): 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, unspecified ankle and foot, without tophus (tophi) (8) GERD (gastroesophageal reflux disease): (9) Anxiety: (10) Sepsis: Qualifiers: Acute renal failure type: with other specified pathological lesion S epsis acute organ dysfunction status: with acute organ dysfunction Sepsis type: sepsis due to unspecified organism Severe sepsis acute organ dysfunction type: acute renal failure Severe sepsis shock status: without septic shock Qualified Code(s): A41.9 - Sepsis, unspecified organism; R65.20 - Severe sepsis without septic shock; N17.8 - Other acute kidney failure (11) Acute on chronic renal insufficiency: (12) Staphylococcus aureus bacteremia: (13) Bloodstream infection due to Port-A-Cath: (14) Physical deconditioning: (15) History of pacemaker: (16) NSTEMI (non-ST elevated myocardial infarction): (17) Acute exacerbation of CHF (congestive heart failure): (18) Supratherapeutic INR: (19) Hypomagnesemia: Plan Staph aureus bacteremia, Mediport staph infection ? Initial set of blood cultures positive for Staph aureus -catheter tip culture positive for Staph aureus ? Chest wound cultures positive for Staph aureus ? Status post Mediport removal ? Plan ? Repeat blood cultures are pending, negative so far ? PICC line to be placed ? Antibiotic therapy has been tailored to cefazolin, will need a total of 6 weeks from negative blood culture ? Infectious disease consulted ? Patient does have a pacemaker in place, if patient develops worsening leukocytosis, fevers, recurrent bacteremia, will have to consider transesophageal echocardiogram New onset hematuria in spite of improved platelet-likely UTI, has Estes catheter in place Resolved UA with evidence of UTI Resume Eliquis and Plavix for now. Will monitor Right cephalic vein occlusive thrombosis ? I do not believe this is a failure of anticoagulation, as patient's Eliquis and Plavix was on hold for at least 48 hours due to hematuria ? Patient was monitored on heparin drip for 24 hours ? Will switch her to Eliquis 10 mg twice daily for 7 days followed by 5 mg twice daily Thrombocytopenia Associated with Protonix, ? Monitor Jaundice, scleral icterus, with hyperbilirubinemia, elevated LFTs, elevated alk phos -Liver ultrasound shows morphologic features suggesting liver cirrhosis - liver function studies monitoring ? Ordere CT scan abdomen pelvis with IV contrast ? CT/CT abdomen pelvis w con* [id number] IMPRESSION: 1. No evidence of liver abscess. 2. Prior cholecystectomy. 3. No intrahepatic biliary ductal dilatation. 4. Slightly cirrhotic configuration to the liver with fatty infiltration. 5. Diffuse body wall anasarca with mild pelvic ascites. Slight perihepatic ascites. 6. Small bilateral pleural effusions with compressive atelectasis in the lung bases. 7. Atrophic RIGHT kidney -cannot do mrcp given pacemaker -Given patient's persistent hyperbilirubinemia, elevated alk phos, LFTs, and recent cholecystectomy, etiology concerning for biliary injury vs biliary stricture vs ampula federica dysfunction vs cholestatic jaundice ? Spoke to general surgery, Dr. Amaya, patient in August had a cholecystectomy, recommended consultation with GI ? Spoke to hepatobiliary at [facility] in [place], recommended medical management, no acute interventions, with out patient follow up NSTEMI ? Type I versus type II ? Has had intermittent chest pain complaints, positive delta troponin, with troponin as high as 125 ? Cath in 2022 showed ?Conclusions 1. Critical in-stent restenosis of 2. SVG to diagonal artery prior stent. Status post successful revascularization with balloon angioplasty. Severe stenosis of SVG to diagonal artery proximal to prior stent. S/p successful revascularization with 1 stent.. 3. Patient has prior CABG. ? Stress test in September 2023 IMPRESSIONS 1. Abnormal myocardial perfusion imaging with large areas of prior infarct with minimal jodi-infarct ischemia seen in all 3 coronary artery territories. 2. LV systolic function is moderately reduced with EF of 41%. ? Echocardiogram CONCLUSIONS Severe diffuse hypokinesia of the left ventricule with an ejection fraction of 20%. Moderate biatrial enlargement. Defibrillator/pacemaker wire in the event right atrium and ventricle Minimally thickened aortic and mitral valves. There is no pericardial effusion. No intracardiac or vegetations were noted . Compared to the study from 10/05/2023, the ejection fraction has decreased from 30% to 20% ? Plan ? Spoke to cardiology, recommended medical management given her multiple comorbidities, during this hospitalization, elevated creatinine ? Continue metoprolol next ?added Imdur ? Continue Plavix, if INR reduction allows ? Continue Eliquis,, if INR reduction allows ? Continue telemetry monitoring ? Monitor for chest pain Physical deconditioning, protein calorie malnutrition ? PT OT ? Protein shakes twice daily Sepsis: Resolved leukocytosis resolved Clinically improving and looks much better as compared to admission Source: Likely secondary to Mediport site infection s/p Mediport removal Continue IV vancomycin since blood cultures, catheter report culture and wound culture showed coagulase positive Staph aureus Off Levophed, maintaining systolic blood pressure in 120s Supportive care and wound care (2) BERNADETTE (acute kidney injury): BERNADETTE on CKD stage II, creatinine 2.2 (3) Congestive heart failure: Currently in exacerbation Heart failure with reduced ejection Echocardiogram shows EF of 20% (4) HTN (hypertension): (5) CAD (coronary artery disease): plavix (6) Atrial fibrillation: apixaban (7) Gout: allopurinol for now (8) GERD (gastroesophageal reflux disease): (9) Anxiety: Continue home Xanax Continue home SSRI Cardiac diet DVT prophylaxis: Apixaban CODE STATUS: Full code Will require half-way placement 10/30/2023 -She is status post Bumex 2 mg IV push every 12 hours with metolazone 10 mg daily, creatinine up to 2.2, urine output -3 L ? For now we will back down to Bumex 2 mg IV push once ? Monitor creatinine hypomagnesemia will place 2 g IV ? Supratherapeutic INR, holding Plavix holding Eliquis until INR improves ? 2 units of FFP and 1 dose of 10 mg IV push vitamin K ? Recheck INR at noon ? Further dosing of Eliquis and Plavix based upon INR trend ? Monitor for bleeding, monitor for fluid overload -Had complaints of chest pain yesterday, troponins high as 125, no acute ST-T wave changes, added Imdur, will need to resume Plavix and Eliquis at some point given elevated troponins, echo with EF down to 20%, difficult situation given her therapeutic INR, Attestations 2 Medical Necessity Statement*: Patient requires hospitalization due to supratherapeutic INR, hypomagnesemia, fluid overload, NSTEMI, chest pain Diagnoses Acute on chronic diastolic congestive heart failure I50.33 Heart failure chronicity: acute on chronic Heart failure type: diastolic Abdominal pain R10.9 Recurrent UTI N39.0 Primary hypertension I10 Hypertension type: primary hypertension CAD (coronary artery disease) I25.10 Atrial fibrillation I48.91 Chronic gout due to renal impairment involving ankle without tophus, unspecified laterality M1A.3790 Gout site: ankle Gout etiology: due to renal impairment Chronicity: chronic Laterality: unspecified laterality Presence of tophus: without tophus GERD (gastroesophageal reflux disease) K21.9 Anxiety F41.9 Sepsis A41.9; R65.20; N17.8 Acute renal failure type: with other specified pathological lesion Sepsis acute organ dysfunction status: with acute organ dysfunction Sepsis type: sepsis due to unspecified organism Severe sepsis acute organ dysfunction type: acute renal failure Severe sepsis shock status: without septic shock Acute on chronic renal insufficiency N28.9; N18.9 Staphylococcus aureus bacteremia R78.81; B95.61 Bloodstream infection due to Port-A-Cath T80.211A Physical deconditioning R53.81 History of pacemaker Z95.0 NSTEMI (non-ST elevated myocardial infarction) I21.4 Acute exacerbation of CHF (congestive heart failure) I50.9 Supratherapeutic INR R79.1 Hypomagnesemia E83.42
[2023-10-30 13:36] LABS: Prothrombin Time > 120.00 SECONDS (12.1-14.9)
[2023-10-30 13:41] LABS: INR > 20.00 (0.8-1.2)
[2023-10-30 18:36] LABS: INR 13.16 (0.8-1.2)
[2023-10-30] MEDS: bumetanide 0.25 mg/mL SDV 4 mL 1 MG IVP (19:21)
[2023-10-31] VITALS (10 sets, daily range): BP systolic 104–151; BP diastolic 56–75; PULSE 68–73; RESP 16–18; TEMP 36.3–37; O2SAT 92–100
[2023-10-31] MEDS: metoprolol tartrate 25 mg Tablet PO ×2 (05:51→17:26)
[2023-10-31] MEDS: potassium chloride ER 20 mEq Tablet PO ×2 (05:51→17:26)
[2023-10-31] MEDS: ceFAZolin 2,000 MG in sodium chloride 0.9% (plus) 50 ML 100 MG IV ×2 (06:30→17:25)
[2023-10-31 07:07] LABS: Basophils # 0.1 10^3/uL (0.0-0.1); Basophils % 1.1 %; Eosinophils # 0.1 10^3/uL (0.0-0.8); Eosinophils % 1.5 %; Hematocrit 22.9 % (36-47); Lymphocytes # 0.9 10^3/uL (0.8-4.8); Lymphocytes % 11.2 %; Mean Corpuscular HGB Conc 31.9 g/dL (30-55); Mean Corpuscular Hemoglobin 31.5 pg (27-33); Mean Corpuscular Volume 98.7 fl (85-98); Mean Platelet Volume 10.8 fL (7.4-10.4); Monocytes # 0.8 10^3/uL (0.2-0.9); Monocytes % 10.3 %; Neutrophils # 5.96 10^3/uL (1.8-7.7); Neutrophils % 75.6 %; Nucleated Red Blood Cells % 0 %; Platelet Count 195 10^3/cmm (157-399); Red Blood Count 2.32 10^6/uL (3.85-5.65); Red Cell Distribution Width 20.1 % (12.1-15.1); White Blood Count 7.88 10^3/uL (3.29-11.43)
[2023-10-31 07:26] LABS: C Reactive Protein 30.8 mg/L (0.0-4.9); Magnesium 1.9 mg/dL (1.7-2.3); Phosphorus 3.1 mg/dL (2.5-4.5)
[2023-10-31 07:35] LABS: Blood Urea Nitrogen 35 mg/dL (8-23); Carbon Dioxide 29 mmol/L (22-29); Chloride 87 mmol/L (98-107); Creatinine Clr Calc Pharmacy 26.8352; Glucose 95 mg/dL (65-115); Osmolality Calculated 276 mOsm/kg (285-295); Sodium 129 mmol/L (136-145)
[2023-10-31 07:36] LABS: Anion Gap 16.9 (5-19); Potassium 3.9 mmol/L (3.5-5.1)
[2023-10-31 07:39] LABS: INR 4.47 (0.8-1.2)
[2023-10-31 07:55] LABS: NT Pro B Type Natriuretic Pept 31913 pg/mL (0-125)
[2023-10-31] MEDS: sertraline 100 mg Tablet PO (08:18)
[2023-10-31] MEDS: ascorbic acid 500 mg Tablet PO (08:18)
[2023-10-31] MEDS: atorvastatin 40 mg Tablet PO (08:18)
[2023-10-31] MEDS: isosorbide mononitrate ER 30 mg Tablet PO (08:19)
[2023-10-31] MEDS: allopurinol 100 mg Tablet 400 MG PO (08:24)
--- NOTE | 2023-10-31 15:43 | PC.SOCIAL ---
IMM Updated Updated pt on IMM. No questions voiced. Provided pt a copy. Initialed, dated, & timed copy in chart.
[2023-10-31 18:51] LABS: INR 2.88 (0.8-1.2)
--- NOTE | 2023-10-31 20:52 | PM.PN ---
Subjective Subjective: Denies any complaints apart from still having some lower abdominal discomfort. States she has been having constipation as per discussion with prior hospitalist. Denies any worsening. No diarrhea or vomiting. Vitals/I&O/Wt Last Vital Signs Temp 98.3 F 10/31/23 19:38 Pulse 69 10/31/23 19:38 Resp 17 10/31/23 19:38 BP 104/65 10/31/23 19:38 Pulse Ox 92 10/31/23 19:38 O2 Del Method Room Air 10/31/23 16:17 O2 Flow Rate 2 10/17/23 07:40 10/31/23 10/31/23 10/31/23 06:59 14:59 22:59 Intake Total 150 / 1900 410 / 410 360 / 770 Output Total 700 / 1750 400 / 400 450 / 850 Balance -550 / 150 -90 / -80 Weight last 48 hrs Weight 87.453 kg Weight 84.459 kg Physical Exam Const: COMMON NORMALS: patient oriented x3 and alert GENERAL APPEARANCE: cooperative ORIENTATION/CONSCIOUSNESS: Yes awake HENMT: COMMON NORMALS: oropharynx normal Neck/C-Spine: COMMON NORMALS: no JVD Resp: COMMON NORMALS: normal respiratory effort and clear to auscultation bilaterally AUSCULTATION: clear to auscultation bilaterally Cardio: COMMON NORMALS: no JVD, regular rhythm, S1 normal heart sound present, S2 normal heart sound present and No murmurs present (Cardio) RHYTHM: regular rhythm HEART SOUNDS: S1 normal heart sound present and S2 normal heart sound present GI: COMMON NORMALS: Normal to inspection, nondistended, normoactive bowel sounds present and Soft to palpation PALPATION: Yes Soft to palpation Extremity: COMMON NORMALS: no joint enlargement and no pedal edema Neuro: COMMON NORMALS: patient oriented x3 and moves all extremities SENSORIUM/ORIENTATION: Yes alert Skin: COMMON NORMALS: no rashes or lesions noted GENERAL SKIN EXAM: no rashes or lesions noted Urinary Catheter Management: Estes: Cath Placed During This Visit: yes Reason for Continuing Indwelling Catheter: Other Urinary Catheter Date of Insertion: 10/14/23 Urinary Catheter Time of Insertion: 22:15 Data 10/31/23 06:30 10/31/23 06:30 A&P Assessment and plan (1) Congestive heart failure: Qualifiers: Heart failure chronicity: acute on chronic Heart failure type: diastolic Qualified Code(s): I50.33 - Acute on chronic diastolic (congestive) heart failure (2) Abdominal pain: (3) Recurrent UTI: (4) HTN (hypertension): Qualifiers: Hypertension type: primary hypertension Qualified Code(s): I10 - Essential (primary) hypertension (5) CAD (coronary artery disease): (6) Atrial fibrillation: (7) Gout: Qualifiers: Gout site: ankle Gout etiology: due to renal impairment Chronicity: chronic Laterality: unspecified laterality Presence of tophus: without tophus Qualified Code(s): 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, unspecified ankle and foot, without tophus (tophi) (8) GERD (gastroesophageal reflux disease): (9) Anxiety: (10) Sepsis: Qualifiers: Acute renal failure type: with other specified pathological lesion Sepsis acute organ dysfunction status: with acute organ dysfunction Sepsis type: sepsis due to unspecified organism Severe sepsis acute organ dysfunction type: acute renal failure Severe sepsis shock status: without septic shock Qualified Code(s): A41.9 - Sepsis, unspecified organism; R65.20 - Severe sepsis without septic shock; N17.8 - Other acute kidney failure (11) Acute on chronic renal insufficiency: (12) Staphylococcus aureus bacteremia: (13) Bloodstream infection due to Port-A-Cath: (14) Physical deconditioning: (15) History of pacemaker: (16) NSTEMI (non-ST elevated myocardial infarction): (17) Acute exacerbation of CHF (congestive heart failure): (18) Supratherapeutic INR: (19) Hypomagnesemia: Plan Supratherapeutic INR with risk of bleeding, INR was up over 22, Eliquis was held as well as her Plavix, received a dose of vitamin K, FFP. INR rechecked today was down to 4.47. Small amount of bleeding at an excoriated lesion below the right chest catheter. Additional recheck INR requested. Continue to decrease down to 2.88. Resume Plavix. At risk of bleeding, reassess for any bleeding. At risk of thrombosis. Reviewed vitals, CBC, noted anemia hemoglobin 7.3, recheck blood counts, Eliquis on hold, reviewed INR, platelets 195. Reviewed BMP. Discussed with nursing, correctional case records supervisor. Staph aureus bacteremia, Mediport staph infection Discussed with nursing, case management, continue cefazolin therapy and complete course of IV antibiotic. ? Initial set of blood cultures positive for Staph aureus -catheter tip culture positive for Staph aureus ? Chest wound cultures positive for Staph aureus ? Status post Mediport removal ? Repeat blood cultures are pending, negative so far ? PICC line to be placed ? Antibiotic therapy has been tailored to cefazolin, will need a total of 6 weeks from negative blood culture ? Infectious disease consulted ? Patient does have a pacemaker in place, if patient develops worsening leukocytosis, fevers, recurrent bacteremia, will have to consider transesophageal echocardiogram New onset hematuria in spite of improved platelet-likely UTI, has Estes catheter in place Resolved. Still having lower abdominal discomfort, unclear if related to UTI or constipation. Reassess. Abdomen is soft, bowel sounds present. UA with evidence of UTI Resume Plavix for now. Reassess for recurrence of hematuria. Right cephalic vein occlusive thrombosis ? I do not believe this is a failure of anticoagulation, as patient's Eliquis and Plavix was on hold for at least 48 hours due to hematuria ? Patient was monitored on heparin drip for 24 hours ? Will switch her to Eliquis 10 mg twice daily for 7 days followed by 5 mg twice daily Thrombocytopenia Associated with Protonix, ? Monitor Jaundice, scleral icterus, with hyperbilirubinemia, elevated LFTs, elevated alk phos -Liver ultrasound shows morphologic features suggesting liver cirrhosis - liver function studies monitoring ? Ordere CT scan abdomen pelvis with IV contrast ? CT/CT abdomen pelvis w con* [id number] IMPRESSION: 1. No evidence of liver abscess. 2. Prior cholecystectomy. 3. No intrahepatic biliary ductal dilatation. 4. Slightly cirrhotic configuration to the liver with fatty infiltration. 5. Diffuse body wall anasarca with mild pelvic ascites. Slight perihepatic ascites. 6. Small bilateral pleural effusions with compressive atelectasis in the lung bases. 7. Atrophic RIGHT kidney -cannot do mrcp given pacemaker -Given patient's persistent hyperbilirubinemia, elevated alk phos, LFTs, and recent cholecystectomy, etiology concerning for biliary injury vs biliary stricture vs ampula federica dysfunction vs cholestatic jaundice ? Spoke to general surgery, Dr. Amaya, patient in August had a cholecystectomy, recommended consultation with GI ? Spoke to hepatobiliary at [facility] in [place], recommended medical management, no acute interventions, with out patient follow up NSTEMI ? Type I versus type II ? Has had intermittent chest pain complaints, positive delta troponin, with troponin as high as 125 ? Cath in 2022 showed ?Conclusions 1. Critical in-stent restenosis of 2. SVG to diagonal artery prior stent. Status post successful revascularization with balloon angioplasty. Severe stenosis of SVG to diagonal artery proximal to prior stent. S/p successful revascularization with 1 stent.. 3. Patient has prior CABG. ? Stress test in September 2023 IMPRESSIONS 1. Abnormal myocardial perfusion imaging with large areas of prior infarct with minimal jodi-infarct ischemia seen in all 3 coronary artery territories. 2. LV systolic function is moderately reduced with EF of 41%. ? Echocardiogram CONCLUSIONS Severe diffuse hypokinesia of the left ventricule with an ejection fraction of 20%. Moderate biatrial enlargement. Defibrillator/pacemaker wire in the event right atrium and ventricle Minimally thickened aortic and mitral valves. There is no pericardial effusion. No intracardiac or vegetations were noted . Compared to the study from 10/05/2023, the ejection fraction has decreased from 30% to 20% ? Plan ? Spoke to cardiology, recommended medical management given her multiple comorbidities, during this hospitalization, elevated creatinine ? Continue metoprolol next ?added Imdur ? Continue Plavix, if INR reduction allows ? Continue Eliquis,, if INR reduction allows ? Continue telemetry monitoring ? Monitor for chest pain Physical deconditioning, protein calorie malnutrition ? PT OT ? Protein shakes twice daily Sepsis: Resolved leukocytosis resolved Clinically improving and looks much better as compared to admission Source: Likely secondary to Mediport site infection s/p Mediport removal Continue IV vancomycin since blood cultures, catheter report culture and wound culture showed coagulase positive Staph aureus Off Levophed, maintaining systolic blood pressure in 120s Supportive care and wound care (2) BERNADETTE (acute kidney injury): BERNADETTE on CKD stage II, creatinine 2.2 (3) Congestive heart failure: Currently in exacerbation Heart failure with reduced ejection Echocardiogram shows EF of 20% (4) HTN (hypertension): (5) CAD (coronary artery disease): plavix (6) Atrial fibrillation: apixaban (7) Gout: allopurinol for now (8) GERD (gastroesophageal reflux disease): (9) Anxiety: Continue home Xanax Continue home SSRI Cardiac diet DVT prophylaxis: Apixaban CODE STATUS: Full code Will require care home placement hypomagnesemia: Recheck magnesium ? Monitor for bleeding, monitor for fluid overload -Prior complaints of chest pain, troponins high as 125, no acute ST-T wave changes, Imdur, resume Plavix given elevated troponins, echo with EF down to 20%, difficult situation given her therapeutic INR, Attestations Medical Necessity Statement*: Continue admission for assessment of management of supratherapeutic INR, resumption of Plavix, at risk of bleeding, thrombosis, treatment of bacteremia and close discharge planning and arrangements. and High MDM includes amount and/or complexity of data reviewed/ordered [ resulted lab(s)/test(s), ordered lab(s)/test(s) and other healthcare professional discussion] and described risk of complication, morbidity or mortality of management as documented Diagnoses Acute on chronic diastolic congestive heart failure I50.33 Heart failure chronicity: acute on chronic Heart failure type: diastolic Abdominal pain R10.9 Recurrent UTI N39.0 Primary hypertension I10 Hypertension type: primary hypertension CAD (coronary artery disease) I25.10 Atrial fibrillation I48.91 Chronic gout due to renal impairment involving ankle without tophus, unspecified laterality M1A.3790 Gout site: ankle Gout etiology: due to renal impairment Chronicity: chronic Laterality: unspecified laterality Presence of tophus: without tophus GERD (gastroesophageal reflux disease) K21.9 Anxiety F41.9 Sepsis A41.9; R65.20; N17.8 Acute renal failure type: with other specified pathological lesion Sepsis acute organ dysfunction status: with acute organ dysfunction Sepsis type: sepsis due to unspecified organism Severe sepsis acute organ dysfunction type: acute renal failure Severe sepsis shock status: without septic shock Acute on chronic renal insufficiency N28.9; N18.9 Staphylococcus aureus bacteremia R78.81; B95.61 Bloodstream infection due to Port-A-Cath T80.211A Physical deconditioning R53.81 History of pacemaker Z95.0 NSTEMI (non-ST elevated myocardial infarction) I21.4 Acute exacerbation of CHF (congestive heart failure) I50.9 Supratherapeutic INR R79.1 Hypomagnesemia E83.42
[2023-10-31] MEDS: HYDROcodone-acetaminophen 5-325 mg Tablet 1 TAB PO (21:42)
[2023-11-01] VITALS (7 sets, daily range): BP systolic 108–141; BP diastolic 57–87; PULSE 69–72; RESP 16–18; TEMP 36.4–36.6; O2SAT 93–96
[2023-11-01] MEDS: ceFAZolin 2,000 MG in sodium chloride 0.9% (plus) 50 ML 100 MG IV ×2 (00:15→08:43)
[2023-11-01] MEDS: potassium chloride ER 20 mEq Tablet PO (05:08)
[2023-11-01] MEDS: metoprolol tartrate 25 mg Tablet PO (05:08)
[2023-11-01 05:53] LABS: Basophils # 0.1 10^3/uL (0.0-0.1); Basophils % 1.5 %; Eosinophils # 0.1 10^3/uL (0.0-0.8); Eosinophils % 1.6 %; Hematocrit 23.8 % (36-47); Lymphocytes # 0.8 10^3/uL (0.8-4.8); Lymphocytes % 12.2 %; Mean Corpuscular HGB Conc 31.1 g/dL (30-55); Mean Corpuscular Hemoglobin 31.5 pg (27-33); Mean Corpuscular Volume 101.3 fl (85-98); Mean Platelet Volume 10.5 fL (7.4-10.4); Monocytes # 0.8 10^3/uL (0.2-0.9); Monocytes % 12.3 %; Neutrophils # 4.83 10^3/uL (1.8-7.7); Neutrophils % 71.8 %; Nucleated Red Blood Cells % 0.3 %; Platelet Count 190 10^3/cmm (157-399); Red Blood Count 2.35 10^6/uL (3.85-5.65); Red Cell Distribution Width 20.3 % (12.1-15.1); White Blood Count 6.73 10^3/uL (3.29-11.43)
[2023-11-01 06:20] LABS: C Reactive Protein 32.3 mg/L (0.0-4.9); Magnesium 1.7 mg/dL (1.7-2.3); Phosphorus 3.3 mg/dL (2.5-4.5)
[2023-11-01 06:32] LABS: INR 2.26 (0.8-1.2)
[2023-11-01 08:00] LABS: NT Pro B Type Natriuretic Pept 30670 pg/mL (0-125)
[2023-11-01] MEDS: isosorbide mononitrate ER 30 mg Tablet PO (08:44)
[2023-11-01] MEDS: clopidogrel 75 mg Tablet PO (08:44)
[2023-11-01] MEDS: atorvastatin 40 mg Tablet PO (08:44)
[2023-11-01] MEDS: allopurinol 100 mg Tablet 400 MG PO (08:44)
[2023-11-01] MEDS: sertraline 100 mg Tablet PO (08:46)
[2023-11-01] MEDS: magnesium sulfate premix 2 GM/50 ML PIGGYBACK IV (09:46)
--- NOTE | 2023-11-01 11:13 | P.DS_ITS ---
Discharge Providers Date of Admission: 10/14/23 01:33 Date of Discharge: November 01, 2023 Attending Provider at Admission: Dex Schmidt MD Attending Provider at Discharge: Joseph Mckinnon Primary Care Provider: Derek Dowd DO Diagnoses at Discharge Discharge Diagnosis (1) Congestive heart failure: Status: Acute Qualifiers: Heart failure chronicity: acute on chronic Heart failure type: diastolic Qualified Code(s): I50.33 - Acute on chronic diastolic (congestive) heart failure (2) Abdominal pain: Status: Acute (3) Recurrent UTI: Status: Acute (4) HTN (hypertension): Status: Acute Qualifiers: Hypertension type: primary hypertension Qualified Code(s): I10 - Essential (primary) hypertension (5) CAD (coronary artery disease): Status: Acute (6) Atrial fibrillation: Status: Acute (7) Gout: Status: Acute Qualifiers: Chronicity: chronic Gout etiology: due to renal impairment Gout site: ankle Laterality: unspecified laterality Presence of tophus: without tophus Qualified Code(s): 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, unspecified ankle and foot, without tophus (tophi) (8) GERD (gastroesophageal reflux disease): Status: Acute (9) Anxiety: Status: Acute (10) Sepsis: Status: Acute Qualifiers: Acute renal failure type: with other specified pathological lesion Sepsis acute organ dysfunction status: with acute organ dysfunction Sepsis type: sepsis due to unspecified organism Severe sepsis acute organ dysfunction type: acute renal failure Severe sepsis shock status: without septic shock Qualified Code(s): A41.9 - Sepsis, unspecified organism; R65.20 - Severe sepsis without septic shock; N17.8 - Other acute kidney failure (11) Acute on chronic renal insufficiency: Status: Acute (12) Staphylococcus aureus bacteremia: Status: Acute (13) Bloodstream infection due to Port-A-Cath: Status: Acute (14) Physical deconditioning: Status: Acute (15) History of pacemaker: Status: Acute (16) NSTEMI (non-ST elevated myocardial infarction): Status: Acute (17) Acute exacerbation of CHF (congestive heart failure): Status: Resolved (18) Supratherapeutic INR: Status: Acute (19) Hypomagnesemia: Status: Chronic Reason for Visit Reason for Visit: UTI- Body Pain Hospital Course Hospital Course Presenting with sepsis, BERNADETTE, CHF, UTI, BERNADETTE on CKD, was treated with IV antibiotics, was found to have Staphylococcus aureus bacteremia. Port-A-Cath was removed, blood cultures cleared on follow-up, was assessed also by infectious disease and PICC line was placed to complete 6 weeks of antibiotic therapy with cefazolin target stop date 11/30. On admission also found to have NSTEMI with troponin elevation, ejection fraction decreased down to 20% on echocardiogram reassessment. This was discussed with cardiology and given renal function, overall condition, recommendation was to continue medical therapy at current time, she was continued on Plavix, initially continue Eliquis, beta- srikanth, Imdur was added. However, subsequently with significant rise in INR over 20 with renal dysfunction, some cirrhotic appearance of liver on CT, anticoagulation and antiplatelets were held due to increased risk of bleeding. She received FFP, vitamin K. INR has been gradually decreasing, with noted anemia, hemoglobin is down to 7.3-7.4 today, but without further decrease. Plavix have been resumed. INR is down as low as 2.26. Please reassess INR, consider resumption of Eliquis if continuing to normalize which she takes for history of atrial fibrillation, also was found to have superficial thrombophlebitis of right cephalic vein. Has history of possible PE, although not definitive, small filling defects in segmental and subsegmental pulmonary arteries or right upper lobe on CT angiogram back in September 2022 with negative venous duplex. We discussed with her regarding consideration of resumption of anticoagulation currently, but with elevated risk of bleeding recent significant INR increase with Eliquis concern is for increased risk of bleeding, with a nemia, and she would like to be on the safer side and confirmed the her coagulation values are continuing to normalize before considering resumption of Eliquis possibly at a lower dose. Discussed risk of VTE. Lower risk of VTE with superficial thrombophlebitis. Please reassess coagulation studies at next visit, consider resumption of anticoagulation. With significant decrease in ejection fraction, cardiomyopathy, we discussed risk of recurrence of congestive heart failure exacerbation, congestive heart failure related complications, risk of comorbidity and mortality, they understand that she is at high risk of readmission and note to notify in case of worsening condition, worsening edema, dyspnea, or any other congestive changes, or other concerning symptoms. She already has a 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 as per her . She is asked to follow-up with cardiology for additional assessment and please reassess renal function, consider further risk stratification, versus appropriateness of angiography. She was treated with diuresis during hospitalization, including IV Bumex and metolazone. Came into negative balance, and is currently compensated in terms of congestive heart failure. At discharge Bumex dose was increased to 3 mg, continue as needed with monitoring for signs of congestion/fluid overload, daily weights. She is asked to restrict fluid intake to 1 L total per day. Follow-up with cardiology for further reassessment and optimization as well as consideration of assessment for coronary disease as above. With hyperbilirubinemia during hospitalization also suspected secondary to congestive changes, without stones in hepatobiliary system, as discussed also with hepatology at [facility] with recommendation for continued medical management. She has been bothered by lower abdominal pain, please reassess, this has been somewhat persistent. CT abdomen pelvis with contrast was nonrevealing, although incidentally did show slightly cirrhotic configuration of the liver with fatty infiltration. Please follow-up. Urine culture was eventfully unrevealing without growth. She is having some constipation, and bowel regimen is somewhat escalated. Abdomen is otherwise soft, nontender to palpation and with good bowel sounds. She knows to seek attention in case of any worsening. Please follow-up also noted elevated TSH although with normal free free T4 and free T3. Physical Exam Narrative: During the visit discussion took place with her as well as her over the speaker phone. Const: COMMON NORMALS: patient oriented x3 and alert GENERAL APPEARANCE: cooperative ORIENTATION/CONSCIOUSNESS: Yes awake HENMT: COMMON NORMALS: oropharynx normal Neck/C-Spine: COMMON NORMALS: no JVD Resp: COMMON NORMALS: normal respiratory effort and clear to auscultation bilaterally AUSCULTATION: clear to auscultation bilaterally Cardio: COMMON NORMALS: no JVD, regular rhythm, S1 normal heart sound present, S2 normal heart sound present and No murmurs present (Cardio) RHYTHM: regular rhythm HEART SOUNDS: S1 normal heart sound present and S2 normal heart sound present GI: COMMON NORMALS: Normal to inspection, nondistended, normoactive bowel sounds present, Soft to palpation and non-tender PALPATION: Yes Soft to palpation Extremity: COMMON NORMALS: no joint enlargement and no pedal edema Neuro: COMMON NORMALS: patient oriented x3 and moves all extremities SENSORIUM/ORIENTATION: Yes alert Skin: COMMON NORMALS: no rashes or lesions noted GENERAL SKIN EXAM: no rashes or lesions noted Urinary Catheter Management: Estes: Cath Placed During This Visit: yes Reason for Continuing Indwelling Catheter: Other Urinary Catheter Date of Insertion: 10/14/23 Urinary Catheter Time of Insertion: 22:15 Discharge Data Studies Completed and Pending Completed Studies During Hospitalization Category Date Time Status CT abdomen pelvis w con* [id number] Stat Cat Scan 10/21/23 08:[address] abdomen pelvis wo con [id number] Stat Cat Scan 10/14/23 00:36 Completed CXRP [XR chest 1V portable [id number]] Routine Exams 10/24/23 09:06 Completed XR chest 1V portable [id number] Routine Exams 10/15/23 06:00 Completed XR lumbar spine 2-3V* [id number] Routine Exams 10/20/23 11:14 Completed XR thoracic spine 3V* [id number] Routine Exams 10/20/23 11:14 [place] [id number] Routine Ultrasound 10/23/23 06:51 Completed CV. echo limited [id number] Routine Ultrasound 10/21/23 07:49 Completed US abdomen complete* [id number] Stat Ultrasound 10/14/23 14:25 Completed [place] liver [id number] Stat Ultrasound 10/20/23 15:38 Completed Pending at discharge Category Date Time Status Complete Blood Count w/Auto AM LABS Lab 11/02/23 04:00 Ordered Complete Blood Count w/Auto AM LABS Lab 11/03/23 04:00 Ordered Complete Blood Count w/Auto AM LABS Lab 11/04/23 04:00 Ordered Fibrinogen Degradation Product Routine Lab 10/31/23 10:36 Received Magnesium AM LABS Lab 11/02/23 04:00 Ordered Prothrombin Time INR AM LABS Lab 11/02/23 04:00 Ordered Prothrombin Time INR AM LABS Lab 11/03/23 04:00 Ordered Prothrombin Time INR AM LABS Lab 11/04/23 04:00 Ordered Radiology Impressions Abdomen Ultrasound 10/14/23 14:25 IMPRESSION: 1. Somewhat lobular hepatic contour, suggesting cirrhosis. 2. Small ascites. 3. Atrophic, echogenic right kidney. 4. Additional findings, as above. Lumbar Spine X-Ray 10/20/23 11:14 IMPRESSION: 1. No acute findings. 2. Moderate lower lumbar disc and facet degeneration. 3. Mild convex left lumbar scoliosis centered at L2. Thoracic Spine X-Ray 10/20/23 11:14 IMPRESSION: No acute findings. Liver Ultrasound 10/20/23 15:38 IMPRESSION: 1. Decompressed gallbladder. No visible stones. No biliary dilation. 2. Moderately atrophic right kidney. 3. Morphologic features of the liver suggest cirrhosis. Abdomen/Pelvis CT 10/21/23 08:08 IMPRESSION: 1. No evidence of liver abscess. 2. Prior cholecystectomy. 3. No intrahepatic biliary ductal dilatation. 4. Slightly cirrhotic configuration to the liver with fatty infiltration. 5. Diffuse body wall anasarca with mild pelvic ascites. Slight perihepatic ascites. 6. Small bilateral pleural effusions with compressive atelectasis in the lung bases. 7. Atrophic RIGHT kidney. Venous Duplex 10/23/23 06:51 IMPRESSION: 1. No findings of right upper extremity deep venous thrombosis 2. Right cephalic vein occlusive thrombosis. ADDENDUM: 10/23/23 1042 IMPRESSION: 1. No findings of right upper extremity deep venous thrombosis 2. Right cephalic vein occlusive thrombosis as above Chest X-Ray 10/24/23 09:06 IMPRESSION: 1. Interval placement right-sided PICC line in good position. 2. Mild CHF. Laboratory Results WBC 6.73 10^3/uL (3.29-11.43) 11/01/23 05:16 RBC 2.35 10^6/uL (3.85-5.65) L 11/01/23 05:16 Hgb 7.40 g/dL (11.27-16.99) L 11/01/23 05:16 Hct 23.8 % (36-47) L 11/01/23 05:16 MCV 101.3 fl (85-98) H 11/01/23 05:16 MCH 31.5 pg (27-33) 11/01/23 05:16 MCHC 31.1 g/dL (30-55) 11/01/23 05:16 RDW 20.3 % (12.1-15.1) H 11/01/23 05:16 Plt Count 190 10^3/cmm (157-399) 11/01/23 05:16 MPV 10.5 fL (7.4-10.4) H 11/01/23 05:16 Neut % (Auto) 71.8 % 11/01/23 05:16 Lymph % (Auto) 12.2 % 11/01/23 05:16 [place] % (Auto) 12.3 % 11/01/23 05:16 Eos % (Auto) 1.6 % 11/01/23 05:16 Baso % (Auto) 1.5 % 11/01/23 05:16 Neut # (Auto) 4.83 10^3/uL (1.8-7.7) 11/01/23 05:16 Lymph # (Auto) 0.8 10^3/uL (0.8-4.8) 11/01/23 05:16 [place] # (Auto) 0.8 10^3/uL (0.2-0.9) 11/01/23 05:16 Eos # (Auto) 0.1 10^3/uL (0.0-0.8) 11/01/23 05:16 Baso # (Auto) 0.1 10^3/uL (0.0-0.1) 11/01/23 05:16 Nucleated RBC % (auto) 0.3 % 11/01/23 05:16 Nucleated RBCs # 0.0 /100WBC 11/01/23 05:16 PT 25.80 SECONDS (12.1-14.9) H 11/01/23 05:16 INR 2.26 (0.8-1.2) H 11/01/23 05:16 APTT 125.9 SECONDS (23.9-36.7) H 10/30/23 08:07 Fibrinogen 244 mg/dL (174-498) 10/30/23 08:07 Fibrin Degrad Products Cancelled 10/30/23 08:18 D-Dimer 7.75 ug/mLFEU (0-0.59) H 10/30/23 08:07 Sodium 129 mmol/L (136-145) L 10/31/23 06:30 Potassium 3.9 mmol/L (3.5-5.1) 10/31/23 06:30 Chloride 87 mmol/L (98-107) L 10/31/23 06:30 Carbon Dioxide 29 mmol/L (22-29) 10/31/23 06:30 Anion Gap 16.9 (5-19) 10/31/23 06:30 BUN 35 mg/dL (8-23) H 10/31/23 06:30 Creatinine 2.1 mg/dL (0.5-0.9) H 10/31/23 06:30 GFR Calculation Not Reportable 10/31/23 06:30 Glucose 95 mg/dL (65-115) 10/31/23 06:30 Calculated Osmolality 276 mOsm/kg (285-295) L 10/31/23 06:30 Lactic Acid 1.7 mmol/L (0.5-2.2) 10/13/23 23:14 Calcium 10.0 mg/dL (8.5-10.5) 10/31/23 06:30 Phosphorus 3.3 mg/dL (2.5-4.5) 11/01/23 05:16 Magnesium 1.7 mg/dL (1.7-2.3) 11/01/23 05:16 Total Bilirubin 2.3 mg/dL (0.15-1.2) H 10/28/23 06:08 Direct Bilirubin 4.00 mg/dL (0.00-0.30) H 10/20/23 13:40 Indirect Bilirubin 1.10 10/20/23 13:40 GGT 351 U/L (5-36) H 10/20/23 13:40 AST 53 U/L (0-32) H 10/28/23 06:08 ALT < 5 U/L (0-33) 10/28/23 06:08 Alkaline Phosphatase 403 U/L (35-105) H 10/28/23 06:08 Creatine Kinase 43 U/L (26-192) 10/30/23 05:22 Troponin T 5th Gen ng/L 125 ng/L (0-10) H* 10/30/23 05:22 Troponin T Baseline 121 ng/L (0-10) H* 10/29/23 17:02 Troponin T 120 Minute 110.5 ng/L (0-10) H 10/29/23 19:05 Delta Troponin T -10.5 ABS# (0-10) L 10/29/23 19:05 Troponin T Hi Sens 6Hr 116.8 ng/L (0-10) H 10/29/23 22:40 Troponin T Hi Sens 6Hr Delta -4.2 ng/L (0-12) L 10/29/23 22:40 C-Reactive Protein 32.3 mg/L (0.0-4.9) H 11/01/23 05:16 NT-Pro-B Natriuret Pep 14963 pg/mL (0-125) H 11/01/23 05:16 Total Protein 6.2 g/dL (6.6-8.7) L 10/28/23 06:08 Albumin 3.8 g/dL (3.5-5.2) 10/28/23 06:08 Globulin 2.4 g/dL (1.3-4.6) 10/28/23 06:08 Lipase 98 U/L (13-60) H 10/20/23 16:43 Procalcitonin 4.07 ng/mL (0-0.5) H 10/15/23 04:00 TSH 8.03 uIU/mL (0.27-4.20) H 10/21/23 05:23 Free T4 1.53 ng/dL (0.82-1.77) 10/21/23 05:23 Free T3 2.1 PG/ML (2.0-4.4) 10/21/23 05:23 Urine Color Yellow (Yellow) 10/19/23 12:40 Urine Appearance Cloudy (CLEAR) A 10/19/23 12:40 Urine pH 5 (5-7) 10/19/23 12:40 Ur Specific [place] 1.005 (1.005-1.030) 10/19/23 12:40 Urine Protein 2+ (Negative) H 10/19/23 12:40 Urine Glucose (UA) Norm (Normal) 10/19/23 12:40 Urine Ketones 1+ (Negative) H 10/19/23 12:40 Urine Blood 3+ (Negative) H 10/19/23 12:40 Urine Nitrate Positive (Negative) H 10/19/23 12:40 Urine Bilirubin 2+ (Negative) H 10/19/23 12:40 Urine Urobilinogen Neg mg/dL (Negative) 10/19/23 12:40 Ur Leukocyte Esterase 1+ (Negative) H 10/19/23 12:40 Urine RBC Too numerous to cnt /hpf (0-2) H 10/19/23 12:40 Urine WBC 10-15 /hpf (0-5) H 10/19/23 12:40 Ur Squamous Epith Cells 0-4 /hpf (0-5) H 10/19/23 12:40 Amorphous Sediment Not Reportable 10/19/23 12:40 Urine Bacteria 4+ /hpf (NONE) H 10/19/23 12:40 Urine Mucus Trace /hpf 10/19/23 12:40 Vancomycin Trough 19.3 ug/mL (10-15) H 10/19/23 07:12 Adenovirus (PCR) Not detected (NOT DETECT) 10/14/23 09:15 C. pneumoniae DNA (PCR) Not detected (NOT DETECT) 10/14/23 09:15 C. difficile (PCR) Negative (Negative) 10/22/23 11:58 Coronavirus 229E (PCR) Not detected (NOT DETECT) 10/14/23 09:15 Hepatitis A IgM Ab Non-reactive (Nonreactive) 10/20/23 16:43 Hep Bs Antigen Non-reactive (Nonreactive) 10/20/23 16:43 Hep B Core IgM Ab Non-reactive (Nonreactive) 10/20/23 16:43 Hepatitis C Antibody Non-reactive (Nonreactive) 10/20/23 16:43 Human Metapneumovir PCR Not detected (NOT DETECT) 10/14/23 09:15 Influenza A (H1) PCR Not detected (NOT DETECT) 10/14/23 09:15 Influ A (H1/09) PCR Not detected (NOT DETECT) 10/14/23 09:15 Influenza A (H3) PCR Not detected (NOT DETECT) 10/14/23 09:15 Influenza Type A (PCR) Not detected (NOT DETECT) 10/14/23 09:15 Influenza Type B (PCR) Not detected (NOT DETECT) 10/14/23 09:15 M. pneumoniae (PCR) Not detected (NOT DETECT) 10/14/23 09:15 Parainfluenza 1 (PCR) Not detected (NOT DETECT) 10/14/23 09:15 Parainfluenza 2 (PCR) Not detected (NOT DETECT) 10/14/23 09:15 Parainfluenza 3 (PCR) Not detected (NOT DETECT) 10/14/23 09:15 Parainfluenza 4 (PCR) Not detected (NOT DETECT) 10/14/23 09:15 RSV Type A (PCR) Not detected (NOT DETECT) 10/14/23 09:15 RSV Type B (PCR) Not detected (NOT DETECT) 10/14/23 09:15 Entero/Rhino (PCR) Not detected (NOT DETECT) 10/14/23 09:15 SARS-CoV-2 (PCR) Not detected (NOT DETECT) 10/14/23 09:15 SARS-CoV-2 Ag (Rapid) negative (Negative) 10/28/23 04:49 MRSA (PCR) Not detected (NOT DETECTED) 10/14/23 03:56 Blood Type O Positive 10/30/23 08:07 Rho(D) Type Rh positive 10/30/23 08:07 Vitals Last Vital Signs Temp 97.9 F 11/01/23 08:00 Pulse 72 11/01/23 08:02 Resp 18 11/01/23 08:02 BP 123/67 11/01/23 08:00 Pulse Ox 96 11/01/23 08:02 O2 Del Method Room Air 11/01/23 08:02 O2 Flow Rate 2 10/17/23 07:40 Discharge Plan Discharge Patient Disposition: Xfer SNF Condition: Stable Prescriptions: New cefazolin 2 gram recon soln 2 g IV Q8H 30 Days isosorbide mononitrate 30 mg Tablet Extended Release 24 Hr 30 mg PO DAILY Qty: 90 0RF Miralax 17 gram powder in packet 17 g PO BID Qty: 100 0RF famotidine 10 mg tablet 10 mg PO DAILY Qty: 90 0RF Continued multivitamin Tablet 1 tab PO QAM allopurinol 100 mg tablet 400 mg PO DAILY Qty: 120 11RF Nitrostat 0.4 mg tablet, sublingual 0.4 mg SUBLINGUAL Q5M PRN (Reason: Chest Pain) Qty: 30 2RF Rx Instructions: do not exceed 3 doses per episode atorvastatin 40 mg tablet 40 mg PO QAM Qty: 90 3RF sertraline 100 mg tablet 100 mg PO QAM Qty: 90 3RF alprazolam 0.5 mg tablet 0.5 mg PO DAILY PRN (Reason: Anxiety) Qty: 20 0RF albuterol sulfate 90 mcg/actuation HFA aerosol inhaler 2 puff INHALATION QID PRN (Reason: Shortness Of Breath) Qty: 8.5 2RF potassium chloride 20 mEq tablet,ER particles/crystals 20 meq PO BID Qty: 60 2RF Rx Instructions: take one tablet BY MOUTH TWICE DAILY while taking bumex. Slow-Mag 71.5 mg tablet,delayed release (DR/EC) 71.5 mg PO BID Qty: 60 5RF galantamine 4 mg tablet 4 mg PO BID Qty: 60 3RF Rx Instructions: administer with AM and PM meals metoprolol tartrate 25 mg tablet 25 mg PO BID Qty: 120 3RF acetaminophen [Tylenol Arthritis Pain] 650 mg tablet extended release 1,300 mg PO BID ascorbic acid (vitamin C) [Vitamin C] 500 mg Tablet See Rx Instructions .ROUTE .COMPLEX Rx Instructions: 500 mg orally ON TUESDAY, TUESDAY AND TUESDAY ferrous sulfate [Iron (ferrous sulfate)] 325 mg (65 mg iron) Tablet See Rx Instructions .ROUTE .COMPLEX Rx Instructions: 325 mg orally ON TUESDAY-TUESDAY AND TUESDAY bisacodyl [Dulcolax (bisacodyl)] 5 mg Tablet,Delayed Release (Dr/Ec) 5 mg PO DAILY PRN (Reason: Constipation) omega-3 fatty acids 1,000 mg Capsule 1,000 mg PO DAILY clopidogrel 75 mg tablet 75 mg PO BEDTIME Hold Instructions: Resume on 08/05/23. Rx Instructions: TAKE ONE TABLET BY MOUTH at bedtime magnesium 200 mg tablet 200 mg PO DAILY Qty: 30 0RF Changed bumetanide 1 mg tablet 3 mg PO DAILY PRN (Reason: Edema) Qty: 90 0RF Rx Instructions: 2 mg orally PRN; Discontinued amoxicillin-pot clavulanate 875-125 mg tablet 1 tab PO BID 7 Days Qty: 14 0RF pantoprazole 40 mg tablet,delayed release (DR/EC) 40 mg PO BID Eliquis 5 mg tablet 5 mg PO BID Hold Instructions: Resume on 08/05/23. Rx Instructions: TAKE ONE TABLET BY MOUTH TWICE DAILY lisinopril 10 mg tablet 5 mg PO DAILY Qty: 90 3RF Discharge Orders: Discharge Order (Routine); Ordered 11/01/23 Ordered By: Joseph Mckinnon Referrals: [facility] [Outside] Anthony Stoner MD [Physician] - 11/04/23 8:35 am Kel Molina M.D [Physician] - 1 week (We have notified your physician's clinic of the need for a follow-up appointment to be scheduled. If you have not heard from them within the next 2 business days, please call them directly. ) Cathleen Marquis MD [Hospitalist] - 1 month (We have notified your physician's clinic of the need for a follow-up appointment to be scheduled. If you have not heard from them within the next 2 business days, please call them directly. ) Discharge Diet: Cardiac Discharge Activity: Increase activity as tolerated and As per PT/OT instructions Patient Instructions: Cefazolin (By injection), Heart Failure (GEN), Anemia (GEN), Bacteremia (GEN), PICC (Peripherally Inserted Central Catheter) (GEN), Opioid Safety Activity Restrictions/Additional Instructions: Follow-up with your primary provider as well as with infectious disease for reassessment after staphylococcal bacteremia. Continue cefazolin 2 g IV every 8 hours until 11/30. Continue Plavix, follow-up with cardiology in office for reassessment of coronary artery disease and congestive heart failure with decreased in ejection fraction from 30 to 20%. Limit total fluid intake to 1000mL in a day. Monitor weights daily. In case of lower extremity edema and/or rapid weight gain example 3 pounds in 2 days, give Bumex 3 mg. Reassess kidney function after acute kidney dysfunction on chronic kidney disease. In case kidney function remained stable consider addition of Entresto, spironolactone. Reassess renal function if may allow for initiation of Farxiga. Follow-up with your primary provider and discuss resumption of Eliquis, follow- up INR and anemia, if continuing to trend towards normal, consider resumption at lower dose. Follow-up elevated TSH with normal free T4 and free T3. Follow-up with your primary provider for further evaluation of your liver, concern for progression to liver fibrosis and possibly cirrhosis. Discharge Attestations Time Spent in Discharge Care*: greater than 30 min Status at Discharge: Cognitive status at discharge: cognitively intact , Behavioral status at discharge: cooperative , Quality Metrics Clinical Quality Measures [ No reported AMI, CVA or VTE this stay] Coding Level of Care Code 53126 Total time (in minutes) for Discharge: 65 Diagnoses Acute on chronic diastolic congestive heart failure I50.33 Heart failure chronicity: acute on chronic Heart failure type: diastolic Abdominal pain R10.9 Recurrent UTI N39.0 Primary hypertension I10 Hypertension type: primary hypertension CAD (coronary artery disease) I25.10 Atrial fibrillation I48.91 Chronic gout due to renal impairment involving ankle without tophus, unspecified laterality M1A.3790 Chronicity: chronic Gout etiology: due to renal impairment Gout site: ankle Laterality: unspecified laterality Presence of tophus: without tophus GERD (gastroesophageal reflux disease) K21.9 Anxiety F41.9 Sepsis A41.9; R65.20; N17.8 Acute renal failure type: with other specified pathological lesion Sepsis acute organ dysfunction status: with acute organ dysfunction Sepsis type: sepsis due to unspecified organism Severe sepsis acute organ dysfunction type: acute renal failure Severe sepsis shock status: without septic shock Acute on chronic renal insufficiency N28.9; N18.9 Staphylococcus aureus bacteremia R78.81; B95.61 Bloodstream infection due to Port-A-Cath T80.211A Physical deconditioning R53.81 History of pacemaker Z95.0 NSTEMI (non-ST elevated myocardial infarction) I21.4 Acute exacerbation of CHF (congestive heart failure) I50.9 Supratherapeutic INR R79.1 Hypomagnesemia E83.42
[2023-11-03 07:45] LABS: Fibrinogen Degradation Product 5 mcg/mL (LESS THAN 5)
== END 2023-11-01 14:23 | disposition skilled nursing facility (03) | DRG 280 ==
LOC: ER 22:54 → CSU 10-14 01:34 → ICU 10-14 05:34 → MEDSURG 10-17 17:17
PROVIDERS: Family Medicine; Internal Medicine; Student in an Organized Health Care Education/Training Program; Surgery; Admitting Provider Internal Medicine; Emergency Provider Emergency Medicine; PCP Family Medicine; Visit Provider Internal Medicine
PROC: 0JPT0WZ Removal of Totally Implantable Vascular Access Device from Trunk Subcutaneous Tissue and Fascia, Open Approach (ICD-10-PCS; CPT 36589; principal; 2023-10-15 12:05)
DX: T80.211A Bloodstream infection due to central venous catheter, initial encounter (principal); A41.01 Sepsis due to Methicillin susceptible Staphylococcus aureus; I21.4 Non-ST elevation (NSTEMI) myocardial infarction; R65.20 Severe sepsis without septic shock; I50.33 Acute on chronic diastolic (congestive) heart failure; I13.0 Hypertensive heart and chronic kidney disease with heart failure and stage 1 through stage 4 chronic kidney disease, or unspecified chronic kidney disease; N39.0 Urinary tract infection, site not specified; I82.611 Acute embolism and thrombosis of superficial veins of right upper extremity; R17 Unspecified jaundice; N17.9 Acute kidney failure, unspecified; Y81.8 Miscellaneous general- and plastic-surgery devices associated with adverse incidents, not elsewhere classified; N18.2 Chronic kidney disease, stage 2 (mild); I25.10 Atherosclerotic heart disease of native coronary artery without angina pectoris; G47.30 Sleep apnea, unspecified; I48.91 Unspecified atrial fibrillation; I73.9 Peripheral vascular disease, unspecified; K44.9 Diaphragmatic hernia without obstruction or gangrene; I27.20 Pulmonary hypertension, unspecified; I80.8 Phlebitis and thrombophlebitis of other sites; K59.00 Constipation, unspecified; E80.6 Other disorders of bilirubin metabolism; F41.9 Anxiety disorder, unspecified; R31.9 Hematuria, unspecified; D69.6 Thrombocytopenia, unspecified; M10.479 Other secondary gout, unspecified ankle and foot; G47.33 Obstructive sleep apnea (adult) (pediatric); D63.1 Anemia in chronic kidney disease; K21.9 Gastro-esophageal reflux disease without esophagitis; E78.2 Mixed hyperlipidemia; G62.9 Polyneuropathy, unspecified; Z79.02 Long term (current) use of antithrombotics/antiplatelets; Z11.52 Encounter for screening for COVID-19; Z22.322 Carrier or suspected carrier of Methicillin resistant Staphylococcus aureus; Z95.1 Presence of aortocoronary bypass graft; Z95.5 Presence of coronary angioplasty implant and graft; Z86.711 Personal history of pulmonary embolism; Z86.73 Personal history of transient ischemic attack (TIA), and cerebral infarction without residual deficits; Z86.010 Personal history of colon polyps; Z87.891 Personal history of nicotine dependence; Z87.440 Personal history of urinary (tract) infections; Z95.810 Presence of automatic (implantable) cardiac 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
CPT/HCPCS: 36415; 36430; 36573; 36591; 36592; 51702; 71045; 72072; 72100; 74176; 74177; 76700; 76705; 80048; 80053; 80074; 80202; 81001; 82247; 82248; 82550; 82977; 83605; 83690; 83735; 83880; 84100; 84145; 84439; 84443; 84481; 84484; 85025; 85362; 85378; 85384; 85610; 85730; 86140; 86900; 86927; 87040; 87070; 87075; 87077; 87086; 87150; 87186; 87205; 87426; 87486; 87493; 87581; 87633; 87641; 93005; 93308; 93971; 96365; 96367; 96372; 96374; 96375; 96376; 97110; 97116; 97162; 97530; 99285; C9113; J0690; J0692; J0696; J1170; J1644; J1885; J1940; J2704; J3370; J3430; J3475; J3490; J7030; J7040; J7050; J7120; P9017; P9046; Q0162; Q9967

== ENCOUNTER → 2023-11-04 08:35 | Outpatient (BNVA) | payer MEDICARE, BC, SELFPAY | PROVIDERS: PCP Family Medicine; Visit Provider Surgery | DX: T80.211A Bloodstream infection due to central venous catheter, initial encounter (principal); X58.XXXA Exposure to other specified factors, initial encounter | CPT/HCPCS: 99214 ==

== ENCOUNTER 2023-11-19 17:12 | Inpatient (IN) | payer BC, MEDICARE, SELFPAY ==
[2023-11-19] VITALS (24 sets, daily range): BP systolic 81–141; BP diastolic 44–83; PULSE 70–108; RESP 20–29; TEMP 36.3–36.7; O2SAT 98–100; BMI 28.0
--- NOTE | 2023-11-19 17:15 | CTR_ITS ---
PROCEDURE INFORMATION: Exam: CT Abdomen And Pelvis With Contrast Exam date and time: 11/19/2023 6:08 PM Age: 73 years old Clinical indication: Abdominal pain; Generalized; Prior surgery; Surgery date: 6+ months; Surgery type: Pacer. Node ablation. Cabg. Coronary stents. Gb. Appy. Hysterectomy. Tubal. Patient HX: Diffuse abd pain with tarry stool. TECHNIQUE: Imaging protocol: Computed tomography of the abdomen and pelvis with contrast. Radiation optimization: All CT scans at this facility use at least one of these dose optimization techniques: automated exposure control; mA and/or kV adjustment per patient size (includes targeted exams where dose is matched to clinical indication); or iterative reconstruction. Contrast material: OMNI 350; Contrast volume: 75 ml; Contrast route: INTRAVENOUS (IV); COMPARISON: CT abdomen pelvis w con* [id number] 10/21/2023 9:18 AM RADIATION DOSE METRICS: Total DLP (mGy-cm): 665.18 FINDINGS: Lungs: There is subpleural atelectasis of the dependent portions of the lungs. Pleural spaces: There are small bilateral pleural effusions decreased compared to the prior exam. Heart: The heart is enlarged. Coronary arteries: There is severe atherosclerotic calcification of the coronary arteries. Diaphragm: A small hiatal hernia is present. Liver: The liver has a nodular contour and there is relative hypertrophy of the caudate lobe, consistent with cirrhosis. Gallbladder and biliary ducts: There has been a cholecystectomy. There is no common bile duct dilation. Pancreas: The pancreas is normal. Spleen: The spleen is normal. Adrenal glands: The adrenal glands are normal. Kidneys and ureters: There is unchanged atrophy of the right kidney with diffuse cortical thinning. There is a 1.7 cm lower pole and 1.4 cm upper pole simple cyst in the right kidney. No follow-up is necessary. There is no evidence of hydronephrosis. There is no evidence of renal calcifications. Stomach and bowel: Mild diverticulosis is present in the distal colon. There is no evidence of colitis/diverticulitis. The colon is decompressed. There is no evidence of intestinal perforation or obstruction. Appendix: There has been an appendectomy. Intraperitoneal space: There is a moderate amount of free intraperitoneal fluid present. Vasculature: No abdominal aortic aneurysm. Severe abdominal aortic atherosclerotic changes. There is a right renal artery stent. Lymph nodes: Unremarkable.No enlarged lymph nodes. Urinary bladder: There is nonspecific bladder wall thickening. This may be related to incomplete distention. Reproductive: There has been a hysterectomy. Bones/joints: No acute bony abnormality. There is levo scoliosis with severe diffuse degenerative changes in the spine. No acute bony abnormality. Soft tissues: There is mild interval increase in diffuse induration of the subcutaneous fat and mesenteric fat compatible with anasarca type changes. CT/CT abdomen pelvis w con* [id number] IMPRESSION: 1. Unchanged exam. No acute abnormality. 2. Cirrhotic liver morphology with small to moderate volume of ascites increased compared to prior exam. 3. There is mild interval increase diffuse induration of the subcutaneous fat and mesenteric fat compatible with anasarca type changes. Smaller bilateral pleural effusions. COMMENTS: Consistent with the [employer]'s Incidental Findings Committee white paper (J Am Bruno Radiol 2018): Any incidental renal lesion less than 1 cm or classified as too small to characterize, or any incidental cystic renal lesion characterized as simple-appearing, is likely benign. No follow-up imaging is recommended for these lesions per consensus recommendations based on imaging criteria.
--- NOTE | 2023-11-19 17:32 | ED_ITS ---
Documented by User: Vincent Tate DO 11/19/23 17:57 HPI - Nausea/Vomiting/Diarrhea 2 General: Chief complaint: Nausea/Vomiting/Diarrhea Stated complaint: LOWER GI BLEED Time Seen by Provider: 11/19/23 17:15 Source: patient and old records reviewed Mode of arrival: EMS History of Present Illness: 73-year-old female [facility] she has dementia. She is currently on cefazolin via [facility]ICC line at the [facility] for 1 month and data supposed to be due by 29. She began having dark tarry stools for the last 2 days. She is not really able to give any history because of her dementia and the only thing she is able to tell me is that she has some lower abdominal pain. Patient admitted last month as he had an NSTEMI she also has congestive heart failure atrial fibrillation was on Eliquis. She has an ejection fraction of 20% she was found to have Staphylococcus auris bacteremia and was started on the cefazolin. During that hospitalization she developed a GI bleed and the Eliquis was stopped and has remained stopped. She is on Plavix. MD elicited complaint: diarrhea and abdominal pain Onset (ago): day(s) (2) Description of diarrhea: black tarry Associated abdominal pain: Yes Location of pain: Suprapubic Associated symtoms: Denies chest pain Review of Systems 2 Card: Denies: chest pain Resp: Denies: dyspnea GI: Reports: abdominal pain PFSH ED 2 PFSH: Medical History (Updated 11/20/23 @ 04:35 by Cristhian Caldera DO) GI bleed NSTEMI (non-ST elevated myocardial infarction) Hospital discharge follow-up Leg swelling CVA (cerebral vascular accident) History of colon polyps Shortness of breath Mastitis Breast enlargement Cholecystitis Bacterial vaginosis Needs flu shot UTI (urinary tract infection) Degenerative disc disease, cervical Neuropathy Staphylococcus epidermidis bacteremia Pulmonary embolism Mixed incontinence urge and stress Facet arthritis, degenerative, cervical spine Cervical osteoarthritis Chronic neck pain Chest pain Follow-up exam Edema of all four extremities Abnormal laboratory test result Neutropenia Diuretic-induced hypokalemia Parainfluenza infection Acute exacerbation of chronic obstructive pulmonary disease Chronic headaches Acute alteration in mental status Essential hypertension Thrush, oral Dysphagia Hypokalemia Hypomagnesemia Mixed dyslipidemia Fatigue Allergic rhinitis Esophageal spasm GERD with esophagitis Lumbar disc disease with radiculopathy Facet arthropathy, lumbar GERD without esophagitis Establishing care with new doctor, encounter for Nausea & vomiting High risk medication use High risk medication use Thrush Cellulitis Anemia Port-A-Cath in place Poor venous access Hearing loss associated with syndrome of both ears Elevated troponin I level Acute cystitis without hematuria Intracranial atherosclerosis Balance disorder Cognitive impairment Cardiac 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 therapy 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 (RN PHYSICIAN OFFICE-D) in place Recurrent UTI CKD (chronic kidney disease) stage 3, GFR 30-59 ml/min 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 GERD (gastroesophageal reflux disease) Hyperlipidemia Iron deficiency anemia Gout Sleep apnea Vertebral artery stenosis Left bundle branch block Right internal carotid artery aneurysm Vertebrobasilar insufficiency Atrial fibrillation PAD (peripheral artery disease) Renal artery stenosis Cardiomyopathy CHF (congestive heart failure) Anticoagulant long-term use BASIA (obstructive sleep apnea) HTN (hypertension) Chronic renal insufficiency, stage II (mild) Surgical History Status post cholecystectomy Hx of arthroscopy of right knee S/P appendectomy S/P section S/P hysterectomy Status post tubal ligation Status post aorto-coronary artery bypass graft S/P CABG (coronary artery bypass graft) S/P angioplasty with stent S/P ICD (internal cardiac 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) procedure H/O cardiac radiofrequency ablation Family History Father , AT AGE 65 Hyperlipidemia CAD (coronary artery disease) Hypertension Rheumatoid arthritis Mother , AT AGE 65 Hyperlipidemia CAD (coronary artery disease) Hypertension Diabetes Sister Hyperlipidemia CAD (coronary artery disease) Hypertension Diabetes Other Cancer Social History Smoking and tobacco/nicotine status: former use of tobacco/nicotine Second hand smoke exposure: No Alcohol intake: never Substance/Drug Use: never Marital status: Current occupational status: retired Female Reproductive History: Spontaneous abortions: No Physical Exam 2 Const: GENERAL APPEARANCE: cooperative ORIENTATION/CONSCIOUSNESS: Yes awake and Yes confused HENMT: COMMON NORMALS: normocephalic, atraumatic and hearing grossly normal bilaterally HEAD & SCALP: normocephalic and atraumatic Resp: COMMON NORMALS: normal respiratory effort, No retractions, No use of accessory muscles and clear to auscultation bilaterally AUSCULTATION: clear to auscultation bilaterally Cardio: COMMON NORMALS: regular rate, regular rhythm and No murmurs present (Cardio) RATE: regular rate RHYTHM: regular rhythm GI: COMMON NORMALS: No hepatosplenomegaly present AUSCULTATION: Yes Hypoactive bowel sounds present PALPATION: Yes Tenderness to palpation present (GI), No Guarding due to palpation present (GI) and Yes No hepatosplenomegaly present Extremity: COMMON NORMALS: normal to inspection, capillary refill normal, no clubbing, cyanosis or edema, no calf tenderness and no pedal edema Skin: COMMON NORMALS: no rashes or lesions noted GENERAL SKIN EXAM: no rashes or lesions noted Course 2 Vital Signs: Vital signs: Vital Signs Temperature 98.2 F 11/20/23 04:17 Pulse Rate 74 11/20/23 04:17 Respiratory Rate 19 H 11/20/23 04:17 Blood Pressure 119/57 11/20/23 04:17 Pulse Oximetry 99 11/20/23 04:17 Oxygen Delivery Me thod Room Air 11/19/23 23:10 MDM - Nausea/Vomiting/Diarrhea Medical Decision Making Care signed out to Dr. Caldera at change of shift. See final notes for diagnosis and disposition. Lab Data 11/19/23 17:50 11/19/23 17:50 Radiology Impressions Abdomen/Pelvis CT 11/19/23 17:15 IMPRESSION: 1. Unchanged exam. No acute abnormality. 2. Cirrhotic liver morphology with small to moderate volume of ascites increased compared to prior exam. 3. There is mild interval increase diffuse induration of the subcutaneous fat and mesenteric fat compatible with anasarca type changes. Smaller bilateral pleural effusions. COMMENTS: Consistent with the [employer]'s Incidental Findings Committee white paper (J Am Bruno Radiol 2018): Any incidental renal lesion less than 1 cm or classified as too small to characterize, or any incidental cystic renal lesion characterized as simple-appearing, is likely benign. No follow-up imaging is recommended for these lesions per consensus recommendations based on imaging criteria. Chest X-Ray 11/19/23 22:17 IMPRESSION: Findings compatible with congestive heart failure. Infection cannot be excluded. Recommend clinical correlation. Laboratory Results WBC 10.03 10^3/uL (3.29-11.43) 11/19/23 17:50 RBC 1.61 10^6/uL (3.85-5.65) L 11/19/23 17:50 Hgb 5.40 g/dL (11.27-16.99) L* 11/19/23 17:50 Hct 16.8 % (36-47) L* 11/19/23 17:50 MCV 104.3 fl (85-98) H 11/19/23 17:50 MCH 33.5 pg (27-33) H 11/19/23 17:50 MCHC 32.1 g/dL (30-55) 11/19/23 17:50 RDW 26.5 % (12.1-15.1) H 11/19/23 17:50 Plt Count 146 10^3/cmm (157-399) L 11/19/23 17:50 MPV 10.5 fL (7.4-10.4) H 11/19/23 17:50 Neut % (Auto) 81.3 % 11/19/23 17:50 Lymph % (Auto) 11.8 % 11/19/23 17:50 [place] % (Auto) 5.5 % 11/19/23 17:50 Eos % (Auto) 0.1 % 11/19/23 17:50 Baso % (Auto) 0.4 % 11/19/23 17:50 Neut # (Auto) 8.16 10^3/uL (1.8-7.7) H 11/19/23 17:50 Lymph # (Auto) 1.2 10^3/uL (0.8-4.8) 11/19/23 17:50 [place] # (Auto) 0.6 10^3/uL (0.2-0.9) 11/19/23 17:50 Eos # (Auto) 0.0 10^3/uL (0.0-0.8) 11/19/23 17:50 Baso # (Auto) 0.0 10^3/uL (0.0-0.1) 11/19/23 17:50 Nucleated RBC % (auto) 0.4 % 11/19/23 17:50 Nucleated RBCs # 0.0 /100WBC 11/19/23 17:50 PT 69.90 SECONDS (12.1-14.9) H 11/19/23 17:50 INR 7.93 (0.8-1.2) H* 11/19/23 17:50 APTT 176.1 SECONDS (23.9-36.7) H* 11/19/23 17:50 Sodium 130 mmol/L (136-145) L 11/19/23 17:50 Potassium 5.3 mmol/L (3.5-5.1) H 11/19/23 17:50 Chloride 92 mmol/L (98-107) L 11/19/23 17:50 Carbon Dioxide 17 mmol/L (22-29) L 11/19/23 17:50 Anion Gap 26.3 (5-19) H 11/19/23 17:50 BUN 97 mg/dL (8-23) H* D 11/19/23 17:50 Creatinine 4.9 mg/dL (0.5-0.9) H 11/19/23 17:50 GFR Calculation Not Reportable 11/19/23 17:50 Glucose 91 mg/dL (65-115) 11/19/23 17:50 Calculated Osmolality 300 mOsm/kg (285-295) H 11/19/23 17:50 Lactic Acid 2.5 mmol/L (0.5-2.2) H 11/19/23 17:50 Calcium 8.6 mg/dL (8.5-10.5) 11/19/23 17:50 Total Bilirubin 1.3 mg/dL (0.15-1.2) H 11/19/23 17:50 AST 38 U/L (0-32) H 11/19/23 17:50 ALT < 5 U/L (0-33) 11/19/23 17:50 Alkaline Phosphatase 184 U/L (35-105) H 11/19/23 17:50 Total Protein 5.9 g/dL (6.6-8.7) L 11/19/23 17:50 Albumin 3.2 g/dL (3.5-5.2) L 11/19/23 17:50 Globulin 2.7 g/dL (1.3-4.6) 11/19/23 17:50 Procalcitonin 0.31 ng/mL (0-0.5) 11/19/23 17:50 Urine Color Yellow (Yellow) 11/19/23 19:00 Urine Appearance Cloudy (CLEAR) A 11/19/23 19:00 Urine pH 5 (5-7) 11/19/23 19:00 Ur Specific [place] 1.005 (1.005-1.030) 11/19/23 19:00 Urine Protein 1+ (Negative) H 11/19/23 19:00 Urine Glucose (UA) Norm (Normal) 11/19/23 19:00 Urine Ketones 1+ (Negative) H 11/19/23 19:00 Urine Blood 3+ (Negative) H 11/19/23 19:00 Urine Nitrate Negative (Negative) 11/19/23 19:00 Urine Bilirubin Neg (Negative) 11/19/23 19:00 Urine Urobilinogen Neg mg/dL (Negative) 11/19/23 19:00 Ur Leukocyte Esterase 2+ (Negative) H 11/19/23 19:00 Urine RBC 5-10 /hpf (0-2) H 11/19/23 19:00 Urine WBC 25-40 /hpf (0-5) H 11/19/23 19:00 Ur Squamous Epith Cells 5-10 /hpf (0-5) H 11/19/23 19:00 Amorphous Sediment 1+ /hpf 11/19/23 19:00 Urine Bacteria 1+ /hpf (NONE) H 11/19/23 19:00 Hyaline Casts 0-4 /lpf H 11/19/23 19:00 Coarse Granular Casts 5-10 /lpf H 11/19/23 19:00 Blood Type O Positive 11/19/23 17:50 Rho(D) Type Rh positive 11/19/23 17:50 Antibody Screen Negative 11/19/23 17:50 Crossmatch See Detail 11/19/23 17:50 XR interpretation done by ED provider, pending radiology final review Discharge Plan Discharge Patient Disposition: Admitted As Inpatient Admit Provider: Ying Forman Clinical Impression: Cardiomyopathy, Acute on chronic renal insufficiency, Acute upper GI bleed Condition: Serious Coding Level of Care Code ED Adobe Layer Helper for Chg Fwd Documented by User: Cristhian Caldera DO 11/20/23 04:35 HPI - Nausea/Vomiting/Diarrhea 2 General: Chief complaint: Nausea/Vomiting/Diarrhea Stated complaint: LOWER GI BLEED Time Seen by Provider: 11/19/23 17:15 [facility] ED 2 PFSH: Medical History (Updated 11/20/23 @ 04:35 by Cristhian Caldera DO) GI bleed NSTEMI (non-ST elevated myocardial infarction) Hospital discharge follow-up Leg swelling CVA (cerebral vascular accident) History of colon polyps Shortness of breath Mastitis Breast enlargement Cholecystitis Bacterial vaginosis Needs flu shot UTI (urinary tract infection) Degenerative disc disease, cervical Neuropathy Staphylococcus epidermidis bacteremia Pulmonary embolism Mixed incontinence urge and stress Facet arthritis, degenerative, cervical spine Cervical osteoarthritis Chronic neck pain Chest pain Follow-up exam Edema of all four extremities Abnormal laboratory test result Neutropenia Diuretic-induced hypokalemia Parainfluenza infection Acute exacerbation of chronic obstructive pulmonary disease Chronic headaches Acute alteration in mental status Essential hypertension Thrush, oral Dysphagia Hypokalemia Hypomagnesemia Mixed dyslipidemia Fatigue Allergic rhinitis Esophageal spasm GERD with esophagitis Lumbar disc disease with radiculopathy Facet arthropathy, lumbar GERD without esophagitis Establishing care with new doctor, encounter for Nausea & vomiting High risk medication use High risk medication use Thrush Cellulitis Anemia Port-A-Cath in place Poor venous access Hearing loss associated with syndrome of both ears Elevated troponin I level Acute cystitis without hematuria Intracranial atherosclerosis Balance disorder Cognitive impairment Cardiac 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 therapy 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 (RN PHYSICIAN OFFICE-D) in place Recurrent UTI CKD (chronic kidney disease) stage 3, GFR 30-59 ml/min 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 GERD (gastroesophageal reflux disease) Hyperlipidemia Iron deficiency anemia Gout Sleep apnea Vertebral artery stenosis Left bundle branch block Right internal carotid artery aneurysm Vertebrobasilar insufficiency Atrial fibrillation PAD (peripheral artery disease) Renal artery stenosis Cardiomyopathy CHF (congestive heart failure) Anticoagulant long-term use BASIA (obstructive sleep apnea) HTN (hypertension) Chronic renal insufficiency, stage II (mild) Surgical History Status post cholecystectomy Hx of arthroscopy of right knee S/P appendectomy S/P section S/P hysterectomy Status post tubal ligation Status post aorto-coronary artery bypass graft S/P CABG (coronary artery bypass graft) S/P angioplasty with stent S/P ICD (internal cardiac 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) procedure H/O cardiac radiofrequency ablation Family History Father , AT AGE 65 Hyperlipidemia CAD (coronary artery disease) Hypertension Rheumatoid arthritis Mother , AT AGE 65 Hyperlipidemia CAD (coronary artery disease) Hypertension Diabetes Sister Hyperlipidemia CAD (coronary artery disease) Hypertension Diabetes Other Cancer Social History Smoking and tobacco/nicotine status: former use of tobacco/nicotine Second hand smoke exposure: No Alcohol intake: never Substance/Drug Use: never Marital status: Current occupational status: retired Course 2 Vital Signs: Vital signs: Vital Signs Temperature 98.2 F 11/20/23 04:17 Pulse Rate 74 11/20/23 04:17 Respiratory Rate 19 H 11/20/23 04:17 Blood Pressure 119/57 11/20/23 04:17 Pulse Oximetry 99 11/20/23 04:17 Oxygen Delivery Me thod Room Air 11/19/23 23:10 MDM - Nausea/Vomiting/Diarrhea Medical Decision Making Care signed out to Dr. Caldera at change of shift. See final notes for diagnosis and disposition. Patient checked out at shift change. She has a hemoglobin of 5.4. Platelet count is 146. Her INR is significantly elevated without being on anticoagulants. CT does not reveal a definite source of hemorrhage. Chest x- ray shows some pulmonary edema. She is crossmatched for 2 units of packed cells, and transfusion has begun in the ER. She is also getting 2 units of FFP for coagulopathy. She is given IV vitamin K.Has spoken with family. The patient is a DNR. She will go to the ICU for continued monitoring. Surgery has been consulted in case EGD is needed. Lab Data 11/19/23 17:50 11/19/23 17:50 Radiology Impressions Abdomen/Pelvis CT 11/19/23 17:15 IMPRESSION: 1. Unchanged exam. No acute abnormality. 2. Cirrhotic liver morphology with small to moderate volume of ascites increased compared to prior exam. 3. There is mild interval increase diffuse induration of the subcutaneous fat and mesenteric fat compatible with anasarca type changes. Smaller bilateral pleural effusions. COMMENTS: Consistent with the [place] [employer]'s Incidental Findings Committee white paper (J Am Bruno Radiol 2018): Any incidental renal lesion less than 1 cm or classified as too small to characterize, or any incidental cystic renal lesion characterized as simple-appearing, is likely benign. No follow-up imaging is recommended for these lesions per consensus recommendations based on imaging criteria. Chest X-Ray 11/19/23 22:17 IMPRESSION: Findings compatible with congestive heart failure. Infection cannot be excluded. Recommend clinical correlation. Laboratory Results WBC 10.03 10^3/uL (3.29-11.43) 11/19/23 17:50 RBC 1.61 10^6/uL (3.85-5.65) L 11/19/23 17:50 Hgb 5.40 g/dL (11.27-16.99) L* 11/19/23 17:50 Hct 16.8 % (36-47) L* 11/19/23 17:50 MCV 104.3 fl (85-98) H 11/19/23 17:50 MCH 33.5 pg (27-33) H 11/19/23 17:50 MCHC 32.1 g/dL (30-55) 11/19/23 17:50 RDW 26.5 % (12.1-15.1) H 11/19/23 17:50 Plt Count 146 10^3/cmm (157-399) L 11/19/23 17:50 MPV 10.5 fL (7.4-10.4) H 11/19/23 17:50 Neut % (Auto) 81.3 % 11/19/23 17:50 Lymph % (Auto) 11.8 % 11/19/23 17:50 [place] % (Auto) 5.5 % 11/19/23 17:50 Eos % (Auto) 0.1 % 11/19/23 17:50 Baso % (Auto) 0.4 % 11/19/23 17:50 Neut # (Auto) 8.16 10^3/uL (1.8-7.7) H 11/19/23 17:50 Lymph # (Auto) 1.2 10^3/uL (0.8-4.8) 11/19/23 17:50 [place] # (Auto) 0.6 10^3/uL (0.2-0.9) 11/19/23 17:50 Eos # (Auto) 0.0 10^3/uL (0.0-0.8) 11/19/23 17:50 Baso # (Auto) 0.0 10^3/uL (0.0-0.1) 11/19/23 17:50 Nucleated RBC % (auto) 0.4 % 11/19/23 17:50 Nucleated RBCs # 0.0 /100WBC 11/19/23 17:50 PT 69.90 SECONDS (12.1-14.9) H 11/19/23 17:50 INR 7.93 (0.8-1.2) H* 11/19/23 17:50 APTT 176.1 SECONDS (23.9-36.7) H* 11/19/23 17:50 Sodium 130 mmol/L (136-145) L 11/19/23 17:50 Potassium 5.3 mmol/L (3.5-5.1) H 11/19/23 17:50 Chloride 92 mmol/L (98-107) L 11/19/23 17:50 Carbon Dioxide 17 mmol/L (22-29) L 11/19/23 17:50 Anion Gap 26.3 (5-19) H 11/19/23 17:50 BUN 97 mg/dL (8-23) H* D 11/19/23 17:50 Creatinine 4.9 mg/dL (0.5-0.9) H 11/19/23 17:50 GFR Calculation Not Reportable 11/19/23 17:50 Glucose 91 mg/dL (65-115) 11/19/23 17:50 Calculated Osmolality 300 mOsm/kg (285-295) H 11/19/23 17:50 Lactic Acid 2.5 mmol/L (0.5-2.2) H 11/19/23 17:50 Calcium 8.6 mg/dL (8.5-10.5) 11/19/23 17:50 Total Bilirubin 1.3 mg/dL (0.15-1.2) H 11/19/23 17:50 AST 38 U/L (0-32) H 11/19/23 17:50 ALT < 5 U/L (0-33) 11/19/23 17:50 Alkaline Phosphatase 184 U/L (35-105) H 11/19/23 17:50 Total Protein 5.9 g/dL (6.6-8.7) L 11/19/23 17:50 Albumin 3.2 g/dL (3.5-5.2) L 11/19/23 17:50 Globulin 2.7 g/dL (1.3-4.6) 11/19/23 17:50 Procalcitonin 0.31 ng/mL (0-0.5) 11/19/23 17:50 Urine Color Yellow (Yellow) 11/19/23 19:00 Urine Appearance Cloudy (CLEAR) A 11/19/23 19:00 Urine pH 5 (5-7) 11/19/23 19:00 Ur Specific [place] 1.005 (1.005-1.030) 11/19/23 19:00 Urine Protein 1+ (Negative) H 11/19/23 19:00 Urine Glucose (UA) Norm (Normal) 11/19/23 19:00 Urine Ketones 1+ (Negative) H 11/19/23 19:00 Urine Blood 3+ (Negative) H 11/19/23 19:00 Urine Nitrate Negative (Negative) 11/19/23 19:00 Urine Bilirubin Neg (Negative) 11/19/23 19:00 Urine Urobilinogen Neg mg/dL (Negative) 11/19/23 19:00 Ur Leukocyte Esterase 2+ (Negative) H 11/19/23 19:00 Urine RBC 5-10 /hpf (0-2) H 11/19/23 19:00 Urine WBC 25-40 /hpf (0-5) H 11/19/23 19:00 Ur Squamous Epith Cells 5-10 /hpf (0-5) H 11/19/23 19:00 Amorphous Sediment 1+ /hpf 11/19/23 19:00 Urine Bacteria 1+ /hpf (NONE) H 11/19/23 19:00 Hyaline Casts 0-4 /lpf H 11/19/23 19:00 Coarse Granular Casts 5-10 /lpf H 11/19/23 19:00 Blood Type O Positive 11/19/23 17:50 Rho(D) Type Rh positive 11/19/23 17:50 Antibody Screen Negative 11/19/23 17:50 Crossmatch See Detail 11/19/23 17:50 All radiology interpretation(s) finalized by discharge Critical Care Time 2 Critical Care Time: Critical Care Time: Yes Total Critical Care Time: 40 Attestation: This case had a high probability of a clinically significant, sudden, or life threatening deterioration of this patient's condition which required my full and direct attention, intervention and personal management. Time is independent of any procedures performed Discharge Plan Discharge Patient Disposition: Admitted As Inpatient Admit Provider: Ying Forman Clinical Impression: Cardiomyopathy, Acute on chronic renal insufficiency, Acute upper GI bleed Condition: Serious Coding Level of Care Code ED Adobe Layer Helper for Dario Guzman
[2023-11-19 17:54] LABS: Basophils % 0.4 %; Eosinophils % 0.1 %; Lymphocytes # 1.2 10^3/uL (0.8-4.8); Lymphocytes % 11.8 %; Mean Corpuscular HGB Conc 32.1 g/dL (30-55); Mean Corpuscular Hemoglobin 33.5 pg (27-33); Mean Corpuscular Volume 104.3 fl (85-98); Mean Platelet Volume 10.5 fL (7.4-10.4); Monocytes # 0.6 10^3/uL (0.2-0.9); Monocytes % 5.5 %; Neutrophils # 8.16 10^3/uL (1.8-7.7); Neutrophils % 81.3 %; Nucleated Red Blood Cells % 0.4 %; Platelet Count 146 10^3/cmm (157-399); Red Blood Count 1.61 10^6/uL (3.85-5.65); Red Cell Distribution Width 26.5 % (12.1-15.1); White Blood Count 10.03 10^3/uL (3.29-11.43)
[2023-11-19 18:06] LABS: Hematocrit 16.8 % (36-47)
[2023-11-19 18:11] LABS: Alanine Aminotransferase < 5 U/L (0-33); Albumin Level 3.2 g/dL (3.5-5.2); Alkaline Phosphatase 184 U/L (35-105); Aspartate Amino Transferase 38 U/L (0-32); Calcium 8.6 mg/dL (8.5-10.5); Carbon Dioxide 17 mmol/L (22-29); Chloride 92 mmol/L (98-107); Globulin 2.7 g/dL (1.3-4.6); Glucose 91 mg/dL (65-115); Osmolality Calculated 300 mOsm/kg (285-295); Sodium 130 mmol/L (136-145); Total Bilirubin 1.3 mg/dL (0.15-1.2); Total Protein 5.9 g/dL (6.6-8.7)
[2023-11-19] MEDS: iohexol 350 mg/mL 500 mL Btl (per mL) IV (18:11)
[2023-11-19 18:18] LABS: Anion Gap 26.3 (5-19); Potassium 5.3 mmol/L (3.5-5.1)
[2023-11-19 18:19] LABS: Blood Urea Nitrogen 97 mg/dL (8-23)
[2023-11-19 18:29] LABS: INR 7.93 (0.8-1.2); Partial Thromboplastin Time 176.1 SECONDS (23.9-36.7)
[2023-11-19] MEDS: acetaminophen 325 mg Tablet 650 MG PO (18:29)
[2023-11-19] MEDS: diphenhydrAMINE 50 mg/mL SDV 1mL 12.5 MG IVP (18:30)
[2023-11-19] MEDS: pantoprazole 40 mg SDV 80 MG IVP (18:32)
--- NOTE | 2023-11-19 19:03 | PC.NURSE ---
PT CLEANED, SOILED BEDDING REMOVED, AND CLEAN CHUCKS PLACED UNDER PT.
[2023-11-19 19:41] LABS: Glucose Urine UA Norm (Normal); Protein Urine 1+ (Negative); Specific Gravity, Urine 1.005 (1.005-1.030); Urine Appearance Cloudy (CLEAR); Urine Color Yellow (Yellow); pH Urine 5 (5-7)
[2023-11-19 19:42] LABS: Add Urine Microscopic? YES; Amorphous Sediment Urine 1+ /hpf; Bacteria Urine 1+ /hpf; Bilirubin Urine Neg (Negative); Blood Urine 3+ (Negative); Hyaline Casts Urine 0-4 /lpf; Ketones Urine 1+ (Negative); Leukocyte Esterase Urine 2+ (Negative); Nitrate Urine Negative (Negative); Urobilinogen Urine Neg (Negative); WBC Urine 25-40 /hpf (0-5)
[2023-11-19 19:43] LABS: Add Urine Culture? Yes
[2023-11-19] MEDS: phytonadione (ADULT) 5 MG in sodium chloride 0.9% 50 ML 151.5 MG IV (20:11)
[2023-11-19] MEDS: sodium chloride 0.9% 250 ML IV (21:30)
[2023-11-19 21:32] LABS: Lactic Sepsis W/Reflex 2.5 mmol/L (0.5-2.2)
[2023-11-19 21:40] LABS: Procalcitonin 0.31 ng/mL (0-0.5)
--- NOTE | 2023-11-19 22:02 | P.HP_ITS ---
Providers/Chief Complaint 2 Admitting Physician: Ying Forman MD Primary Care Provider: Derek Dowd DO Chief Complaint: LOWER GI BLEED History of Present Illness Essie Alejandre is a 73 year old female With past medical history of congestive heart failure, coronary disease with history of CABG PCI, PE, hypertension, sleep apnea, atrial fibrillation, CKD stage II, peripheral arterial disease, liver cirrhosis, recent staph coccus aureus bacteremia secondary to port infection who presented to the hospital today with complaint of black tarry stools that have been going on for last few days. Most of the history obtained from family who was present at bedside states that she has been having abdominal pain since her discharge 20 days ago. She has had mild shortness of breath. Patient is on soft bite sized food consistency and normally does vomit if she has trouble swallowing and yesterday had another episode of the same and ended up aspirating. Family states she has a very bad gag reflex and therefore she will tend to vomit during eating or taking her medications. She also has a baseline tremor in her hands and a head tremor which has been worsening in the last few weeks. Patient has been taking cefazolin 2 g every 8 hours to complete antibiotic which is going to end of December 04. Patient did have supratherapeutic INR last admission at which time she received FFP, vitamin K. Hemoglobin did trend down to 7.37.4. Eliquis was stopped. Patient unable to provide much history at this time except she says will be okay. She does have a DNR/DNI in place which patient and family both agreed to. Patient is somewhat confused and is very hard of hearing. She was discharged on Bumex 3 mg daily. In ER today blood pressure 127/83, respiratory 20, pulse 73, saturating 99% on room air. Patient has had another large BM which was black and tarry appearing. Patient's blood pressure low and she was ordered 250 cc normal saline bolus. Currently wanting first unit of packed RBC with second 1 pending. Hemoglobin on arrival 5.6. FOBT positive. INR 7.9 today. BUN 97, creatinine 4.9, lactic acid 2.5. She was given vitamin K, 80 of Protonix 1 L normal saline bolus in ER. UA shows 25-40 WBCs, 1+ bacteria. Medications/Allergies Home Medications Medication Instructions Recorded Confirmed Last Taken Type multivitamin 1 tab PO QAM 06/08/21 11/04/23 1 Day Ago History ~10/13/23 omega-3 fatty acids 1,000 mg 1,000 mg PO DAILY 03/24/22 11/04/23 1 Day Ago History capsule ~10/13/23 acetaminophen 650 mg 1,300 mg PO BID 09/17/22 11/04/23 1 Day Ago History tablet,extended release (Tylenol ~10/13/23 Arthritis Pain) nitroglycerin 0.4 mg sublingual 0.4 mg sublingual Q5M PRN Chest 12/06/22 11/04/23 Unknown Rx tablet (Nitrostat) Pain #30 tabs atorvastatin 40 mg tablet 40 mg PO QAM #90 tabs 12/13/22 11/04/23 1 Day Ago Rx ~10/13/23 sertraline 100 mg tablet 100 mg PO QAM #90 tabs 12/13/22 11/04/23 1 Day Ago Rx ~10/13/23 allopurinol 100 mg tablet 400 mg (4 x 100 mg) PO DAILY #120 04/27/23 11/04/23 1 Day Ago Rx tabs ~10/13/23 ascorbic acid (vitamin C) 500 mg See Rx Instructions .Route .COMPLEX 06/06/23 11/04/23 2 Days Ago History tablet (Vitamin C) ~10/12/23 bisacodyl 5 mg tablet,delayed 5 mg PO DAILY PRN Constipation 06/06/23 11/04/23 08/24/23 History release (Dulcolax (bisacodyl)) ferrous sulfate 325 mg (65 mg See Rx Instructions .Route .COMPLEX 06/06/23 11/04/23 2 Days Ago History iron) tablet (Iron (ferrous ~10/12/23 sulfate)) albuterol sulfate 90 mcg/actuation 2 puff inhalation QID PRN 06/29/23 11/04/23 1 Day Ago Rx aerosol inhaler Shortness Of Breath #8.5 grams ~10/13/23 alprazolam 0.5 mg tablet 0.5 mg PO DAILY PRN Anxiety #20 06/29/23 11/04/23 08/29/23 Rx tabs galantamine 4 mg tablet 4 mg PO BID #60 tabs 07/15/23 11/04/23 1 Day Ago Rx ~10/13/23 metoprolol tartrate 25 mg tablet 25 mg PO BID #120 tabs 07/19/23 11/04/23 1 Day Ago Rx ~10/13/23 clopidogrel 75 mg tablet 75 mg PO BEDTIME 08/01/23 11/04/23 1 Day Ago History ~10/13/23 magnesium chloride 71.5 mg 71.5 mg PO BID #60 tabs 09/06/23 11/04/23 1 Day Ago Rx (magnesium chloride) ~10/13/23 tablet,delayed release (Slow-Mag) potassium chloride 20 mEq 20 meq PO BID #60 tabs 09/06/23 11/04/23 1 Day Ago Rx tablet,extended release(part/cryst) ~10/13/23 magnesium 200 mg tablet 200 mg PO DAILY #30 tabs 10/08/23 11/04/23 1 Day Ago Rx ~10/13/23 bumetanide 1 mg tablet 3 mg (3 x 1 mg) PO DAILY PRN Edema 11/01/23 11/04/23 1 Day Ago Rx #90 tabs ~10/13/23 cefazolin 2 gram intravenous 2 g IV Q8H 1 month 11/01/23 11/04/23 Unknown Rx solution famotidine 10 mg tablet 10 mg PO DAILY #90 tabs 11/01/23 11/04/23 Unknown Rx isosorbide mononitrate 30 mg 30 mg PO DAILY #90 tabs 11/01/23 11/04/23 Unknown Rx tablet,extended release 24 hr polyethylene glycol 3350 17 gram 17 g PO BID #100 ea 11/01/23 11/04/23 Unknown Rx oral powder packet (Miralax) Allergies Allergy/AdvReac Type Severity Reaction Status Date / Time tizanidine Allergy Unknown ADR-Halluci Verified 11/04/23 08:42 nating levofloxacin [From Levaquin] Allergy ALGY-Redness Verified 11/04/23 08:42 of Skin Sulfa (Sulfonamide Allergy hives Verified 11/04/23 08:42 Antibiotics) adhesive tape AdvReac Mild Unknown Verified 11/04/23 08:42 PFSH Acute 2 PFSH: Medical History (Updated 11/19/23 @ 22:12 by Ying Forman MD) GI bleed NSTEMI (non-ST elevated myocardial infarction) Hospital discharge follow-up Leg swelling CVA (cerebral vascular accident) History of colon polyps Shortness of breath Mastitis Breast enlargement Cholecystitis Bacterial vaginosis Needs flu shot UTI (urinary tract infection) Degenerative disc disease, cervical Neuropathy Staphylococcus epidermidis bacteremia Pulmonary embolism Mixed incontinence urge and stress Facet arthritis, degenerative, cervical spine Cervical osteoarthritis Chronic neck pain Chest pain Follow-up exam Edema of all four extremities Abnormal laboratory test result Neutropenia Diuretic-induced hypokalemia Parainfluenza infection Acute exacerbation of chronic obstructive pulmonary disease Chronic headaches Acute alteration in mental status Essential hypertension Thrush, oral Dysphagia Hypokalemia Hypomagnesemia Mixed dyslipidemia Fatigue Allergic rhinitis Esophageal spasm GERD with esophagitis Lumbar disc disease with radiculopathy Facet arthropathy, lumbar GERD without esophagitis Establishing care with new doctor, encounter for Nausea & vomiting High risk medication use High risk medication use Thrush Cellulitis Anemia Port-A-Cath in place Poor venous access Hearing loss associated with syndrome of both ears Elevated troponin I level Acute cystitis without hematuria Intracranial atherosclerosis Balance disorder Cognitive impairment Cardiac 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 therapy 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 Recurrent UTI CKD (chronic kidney disease) stage 3, GFR 30-59 ml/min 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 GERD (gastroesophageal reflux disease) Hyperlipidemia Iron deficiency anemia Gout Sleep apnea Vertebral artery stenosis Left bundle branch block Right internal carotid artery aneurysm Vertebrobasilar insufficiency Atrial fibrillation PAD (peripheral artery disease) Renal artery stenosis Cardiomyopathy CHF (congestive heart failure) Anticoagulant long-term use BASIA (obstructive sleep apnea) HTN (hypertension) Chronic renal insufficiency, stage II (mild) Surgical History Status post cholecystectomy Hx of arthroscopy of right knee S/P appendectomy S/P section S/P hysterectomy Status post tubal ligation Status post aorto-coronary artery bypass graft S/P CABG (coronary artery bypass graft) S/P angioplasty with stent S/P ICD (internal cardiac 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) procedure H/O cardiac radiofrequency ablation Family History Father , AT AGE 65 Hyperlipidemia CAD (coronary artery disease) Hypertension Rheumatoid arthritis Mother , AT AGE 65 Hyperlipidemia CAD (coronary artery disease) Hypertension Diabetes Sister Hyperlipidemia CAD (coronary artery disease) Hypertension Diabetes Other Cancer Social History Smoking and tobacco/nicotine status: former use of tobacco/nicotine Second hand smoke exposure: No Alcohol intake: never Substance/Drug Use: never Marital status: Current occupational status: retired Female Reproductive History: Spontaneous abortions: No Vitals/I&O/Wt Last Vital Signs Temp 97.9 F 11/19/23 20:33 Pulse 72 11/19/23 20:33 Resp 24 H 11/19/23 20:33 BP 111/46 11/19/23 20:33 Pulse Ox 99 11/19/23 20:33 O2 Del Method Room Air 11/19/23 17:48 11/19/23 11/19/23 11/19/23 06:59 14:59 22:59 Intake Total 50.5 / 50.5 Balance 50.5 / 50.5 Physical Exam 2 Narrative: General: Alert oriented x2, patient seen laying in bed. Has a head tremor and head tremor. Family surrounding patient. Just had a large BM dark black tarry. HEENT: Normocephalic, atraumatic, EOMI, breathing room air saturating 100%. Cardio: Regular rate rhythm, normal S1-S2 Respiratory: Clear to auscultation bilaterally no wheezes no rhonchi, diminished at bases. GI: Abdomen soft, nontender, nondistended, bowel sounds positive. Patient does not grimace to palpation, no rebound tenderness present. No guarding. Extremities: No edema bilateral lower extremities. Data 11/19/23 17:50 11/19/23 17:50 Micro: Microbiology 11/19/23 19:00 Blood Culture - Preliminary Blood SPECIMEN COLLECTED 11/19/23 18:34 Blood Culture - Preliminary Blood SPECIMEN COLLECTED A&P Assessment and plan (1) HTN (hypertension): Qualifiers: Hypertension type: primary hypertension Qualified Code(s): I10 - Essential (primary) hypertension (2) Congestive heart failure: Qualifiers: Heart failure chronicity: acute on chronic Heart failure type: d iastolic Qualified Code(s): I50.33 - Acute on chronic diastolic (congestive) heart failure (3) CAD (coronary artery disease): (4) Atrial fibrillation: (5) Supratherapeutic INR: (6) Abdominal pain: (7) BERNADETTE (acute kidney injury): (8) Acute on chronic renal insufficiency: (9) CKD (chronic kidney disease) stage 3, GFR 30-59 ml/min: Qualifiers: Chronic kidney disease stage 3 subtype: stage 3b (GFR 30-44) Qualified Code(s): N18.32 - Chronic kidney disease, stage 3b (10) Urinary tract infection: Qualifiers: Hematuria presence: without hematuria Urinary tract infection type: a cute cystitis Qualified Code(s): N30.00 - Acute cystitis without hematuria (11) Staphylococcus aureus bacteremia: (12) BASIA (obstructive sleep apnea): (13) GI bleed: Plan #Upper GI bleed #Acute blood loss anemia #Supratherapeutic INR #Liver cirrhosis? #Coronary disease status post CABG status post PCI in the past #History of systolic congestive heart failure #History of Staph aureus bacteremia #Hypotension #BERNADETTE on CKD #Hyperkalemia #Lactic acidosis most likely secondary to hypoperfusion ? Patient has been ordered 2 unit packed RBC. First 1 transfusion at this time second 1 pending. Has received 1 L normal saline bolus. Additionally 250 cc bolus has been ordered. Blood pressure stable at this time 101/59. She is fluid responsive. Saturating 99% on room air. Supratherapeutic INR. Has been treated with vitamin K and FFP at this time. May add Levophed if blood pressure drops further. ? Recheck INR ? Patient not on anticoagulation. That was stopped last admission. She has been on Plavix which I will hold at this time as well. ? BERNADETTE most likely secondary to hypoperfusion GI bleed hypotension. Most likely patient will cause. Will continue to monitor renal function. Continue to monitor urine output. Placed Estes catheter for strict I's and O's. Patient at risk of developing ATN ? Hold Bumex at this time, metoprolol tartrate Imdur. ? Complete med rec ? UA suggestive of UTI at this time. [facility]. I will hold at this time and switch to Zosyn. ? Will check blood cultures, urine culture ? Will check chest x-ray as patient aspirated yesterday. Most likely pneumonitis?check procalcitonin level ? Check CBC every 8 hours ? Check CMP in a.m. ? General surgery consulted from ER. N.p.o. at midnight tonight. Possible EGD in AM. ? Repeat hemoglobin once for tenets of blood are completed. Platelet count 146. Continue to monitor. ? Patient did have a stress test done at the end of September. EF 41% on it. Denies any chest pain at this time. DNR/DNI. Family states they do not want any heroic measures. They would like everything done except not to intervene if she has a cardiac arrest. DVT prophylaxis: SCDs. Attestations 2 Medical Necessity Statement*: Greater than 2 midnight stay for management of upper GI bleed. Acute blood loss anemia supratherapeutic INR. Diagnoses Primary hypertension I10 Hypertension type: primary hypertension Acute on chronic diastolic congestive heart failure I50.33 Heart failure chronicity: acute on chronic Heart failure type: diastolic CAD (coronary artery disease) I25.10 Atrial fibrillation I48.91 Supratherapeutic INR R79.1 Abdominal pain R10.9 BERNADETTE (acute kidney injury) N17.9 Acute on chronic renal insufficiency N28.9; N18.9 Stage 3b chronic kidney disease N18.32 Chronic kidney disease stage 3 subtype: stage 3b (GFR 30-44) Urinary tract infection N30.00 Hematuria presence: without hematuria Urinary tract infection type: acute cystitis Staphylococcus aureus bacteremia R78.81; B95.61 BASIA (obstructive sleep apnea) G47.33 GI bleed K92.2
--- NOTE | 2023-11-19 22:17 | XRR_ITS ---
PROCEDURE INFORMATION: Exam: XR Chest Exam date and time: 11/20/2023 12:54 AM Age: 73 years old Clinical indication: Other: Aspiration; Prior surgery; Surgery date: 6+ months; Surgery type: Pacer. Aortic valve. Coronary stents. TECHNIQUE: Imaging protocol: Radiologic exam of the chest. Views: 1 view. COMPARISON: CR XR chest 1V portable [id number] 10/24/2023 10:16 AM FINDINGS: Tubes, catheters and devices: AICD overlying left chest wall obscuring underlying lung. Right-sided central catheter tip projecting over the expected region of the superior vena cava. Lungs: Mild bilateral interstitial and patchy alveolar lung infiltrates. Pleural spaces: No pleural effusion. No pneumothorax. Heart/Mediastinum: Mild cardiomegaly. Bones/joints: Median sternotomy. XR/XR chest 1V portable [id number] IMPRESSION: Findings compatible with congestive heart failure. Infection cannot be excluded. Recommend clinical correlation.
--- NOTE | 2023-11-19 22:30 | PC.NURSE ---
Patient arrived from ER on carrier at [id number]. First unit of PRBC's infusing at 150ml/hr to right arm PICC.
[2023-11-19 23:06] LABS: Reflex Lactate Order REFLEX LACTIC ORDERD
[2023-11-20] VITALS (87 sets, daily range): BP systolic 105–153; BP diastolic 32–84; PULSE 70–96; RESP 14–28; TEMP 36.2–36.8; O2SAT 91–100
[2023-11-20] MEDS: oxyCODONE 5 mg IR Tab/Cap PO (03:15)
[2023-11-20] MEDS: piperacillin-tazobactam 3.375 GM in sodium chloride 0.9% (plus) 50 ML IV ×2 (04:01→16:29)
[2023-11-20 06:06] LABS: Lactic Sepsis W/Reflex 2.2 mmol/L (0.5-2.2)
[2023-11-20] MEDS: pantoprazole 40 mg SDV IVP ×2 (06:19→16:32)
[2023-11-20 07:33] LABS: Reflex Lactate Order REFLEX LACTIC ORDERD
[2023-11-20 08:38] LABS: Basophils % 0.5 %; Lymphocytes # 0.8 10^3/uL (0.8-4.8); Lymphocytes % 9.6 %; Mean Corpuscular HGB Conc 32.4 g/dL (30-55); Mean Corpuscular Hemoglobin 31.1 pg (27-33); Mean Corpuscular Volume 95.9 fl (85-98); Mean Platelet Volume 10.5 fL (7.4-10.4); Monocytes # 0.4 10^3/uL (0.2-0.9); Neutrophils % 84.2 %; Nucleated Red Blood Cells % 0.2 %; Platelet Count 91 10^3/cmm (157-399); Red Blood Count 2.19 10^6/uL (3.85-5.65); Red Cell Distribution Width 23.7 % (12.1-15.1); White Blood Count 8.32 10^3/uL (3.29-11.43)
--- NOTE | 2023-11-20 08:48 | P.ANESASSM_ITS ---
Pre-Anesthetic Assessment Height/Weight: Height 1.65 m Weight 76.566 kg Temp Pulse Resp BP Pulse Ox O2 Del Method 97.8 F 74 20 H 149/68 95 Room Air 11/20/23 05:48 11/20/23 08:35 11/20/23 05:48 11/20/23 05:48 11/20/23 08:35 11/20/23 08:35 Operation Date: 11/20/23 08:00 Proposed Procedures p EGD(Not Applicable) - Fran Amaya DO Social No alcohol and No tobacco Exam clear to auscultation bilaterally Airway Submandibular: within normal limits Cervical ROM: within normal limits Mallampati: Class I Pulmonary hx of previous aspiration CV/HEM Atrial Fibrillation, Anemia and Congestive Heart Failure last EF 20% None reported Hepatic None reported GI None reported Metabolic None reported Musc/skel Weakness Neuropsych Cerebrovascular Accident and Dementia questionable CVA 2 weeks ago per . Patient in senior living. Anesthetic Plan ASA status: 4 Anesthesia: MAC Other Pertinent Information will scope once labs appropriate Medications/Allergies Home Medications Medication Instructions Recorded Confirmed Last Taken Type omega-3 fatty acids 1,000 mg 1,000 mg PO DAILY 03/24/22 11/20/23 11/18/23 07:45 History capsule acetaminophen 650 mg 1,300 mg PO BID 09/17/22 11/20/23 11/19/23 10:00 History tablet,extended release (Tylenol Arthritis Pain) nitroglycerin 0.4 mg sublingual 0.4 mg sublingual Q5M PRN Chest 12/06/22 11/20/23 Unknown Rx tablet (Nitrostat) Pain #30 tabs atorvastatin 40 mg tablet 40 mg PO QAM #90 tabs 12/13/22 11/20/23 11/18/23 07:45 Rx sertraline 100 mg tablet 100 mg PO QAM #90 tabs 12/13/22 11/20/23 11/19/23 10:00 Rx allopurinol 100 mg tablet 400 mg (4 x 100 mg) PO DAILY #120 04/27/23 11/20/23 11/19/23 10:15 Rx tabs ascorbic acid (vitamin C) 500 mg See Rx Instructions .Route .COMPLEX 06/06/23 11/20/23 11/18/23 07:45 History tablet (Vitamin C) bisacodyl 5 mg tablet,delayed 5 mg PO DAILY PRN Constipation 06/06/23 11/04/23 08/24/23 History release (Dulcolax (bisacodyl)) ferrous sulfate 325 mg (65 mg See Rx Instructions .Route .COMPLEX 06/06/23 11/20/23 11/18/23 07:30 History iron) tablet (Iron (ferrous sulfate)) albuterol sulfate 90 mcg/actuation 2 puff inhalation QID PRN 06/29/23 11/20/23 1 Day Ago Rx aerosol inhaler Shortness Of Breath #8.5 grams ~10/13/23 alprazolam 0.5 mg tablet 0.5 mg PO DAILY PRN Anxiety #20 06/29/23 11/20/23 11/16/23 07:00 Rx tabs galantamine 4 mg tablet 4 mg PO BID #60 tabs 07/15/23 11/20/23 11/18/23 06:00 Rx metoprolol tartrate 25 mg tablet 25 mg PO BID #120 tabs 07/19/23 11/20/23 11/19/23 10:00 Rx clopidogrel 75 mg tablet 75 mg PO BEDTIME 08/01/23 11/20/23 11/18/23 08:00 History potassium chloride 20 mEq 20 meq PO BID #60 tabs 09/06/23 11/20/23 11/18/23 20:00 Rx tablet,extended release(part/cryst) magnesium 200 mg tablet 200 mg PO DAILY #30 tabs 10/08/23 11/20/23 11/18/23 07:45 Rx bumetanide 1 mg tablet 3 mg (3 x 1 mg) PO DAILY PRN Edema 11/01/23 11/20/23 11/19/23 10:00 Rx #90 tabs cefazolin 2 gram intravenous 2 g IV Q8H 1 month 11/01/23 11/20/23 11/19/23 10:00 Rx solution famotidine 10 mg tablet 10 mg PO DAILY #90 tabs 11/01/23 11/20/23 11/18/23 07:00 Rx isosorbide mononitrate 30 mg 30 mg PO DAILY #90 tabs 11/01/23 11/20/23 11/19/23 10:00 Rx tablet,extended release 24 hr albuterol sulfate 90 mcg/actuation inhalation 11/20/23 11/20/23 Unknown History aerosol inhaler Allergies Allergy/AdvReac Type Severity Reaction Status Date / Time tizanidine Allergy Unknown ADR-Halluci Verified 11/04/23 08:42 nating levofloxacin [From Levaquin] Allergy ALGY-Redness Verified 11/04/23 08:42 of Skin Sulfa (Sulfonamide Allergy hives Verified 11/04/23 08:42 Antibiotics) adhesive tape AdvReac Mild Unknown Verified 11/04/23 08:42 Current Medications Generic Name Dose Route Start Last Admin Trade Name Freq PRN Reason Stop Dose Admin Sodium Chloride 1,000 mls @ 125 mls/hr 11/19/23 20:30 11/20/23 05:36 Sodium Chloride 0.9% IV Not Given .Q8H JEREMY Piperacillin Sod/Tazobactam 50 mls @ 12.5 mls/hr 11/19/23 23:45 11/20/23 04:01 Sod 3.375 gm/ Sodium Chloride IV 12.5 mls/hr Q12H JEREMY Administration Pantoprazole Sodium 40 mg 11/19/23 20:30 11/20/23 06:19 Pantoprazole 40 Mg Sdv IVP 40 mg Q12H JEREMY Administration PFSH Anesthesia Medical History (Updated 11/20/23 @ 04:35 by Cristhian Caldera DO) GI bleed NSTEMI (non-ST elevated myocardial infarction) Hospital discharge follow-up Leg swelling CVA (cerebral vascular accident) History of colon polyps Shortness of breath Mastitis Breast enlargement Cholecystitis Bacterial vaginosis Needs flu shot UTI (urinary tract infection) Degenerative disc disease, cervical Neuropathy Staphylococcus epidermidis bacteremia Pulmonary embolism Mixed incontinence urge and stress Facet arthritis, degenerative, cervical spine Cervical osteoarthritis Chronic neck pain Chest pain Follow-up exam Edema of all four extremities Abnormal laboratory test result Neutropenia Diuretic-induced hypokalemia Parainfluenza infection Acute exacerbation of chronic obstructive pulmonary disease Chronic headaches Acute alteration in mental status Essential hypertension Thrush, oral Dysphagia Hypokalemia Hypomagnesemia Mixed dyslipidemia Fatigue Allergic rhinitis Esophageal spasm GERD with esophagitis Lumbar disc disease with radiculopathy Facet arthropathy, lumbar GERD without esophagitis Establishing care with new doctor, encounter for Nausea & vomiting High risk medication use High risk medication use Thrush Cellulitis Anemia Port-A-Cath in place Poor venous access Hearing loss associated with syndrome of both ears Elevated troponin I level Acute cystitis without hematuria Intracranial atherosclerosis Balance disorder Cognitive impairment Cardiac 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 therapy 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 Recurrent UTI CKD (chronic kidney disease) stage 3, GFR 30-59 ml/min 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 GERD (gastroesophageal reflux disease) Hyperlipidemia Iron deficiency anemia Gout Sleep apnea Vertebral artery stenosis Left bundle branch block Right internal carotid artery aneurysm Vertebrobasilar insufficiency Atrial fibrillation PAD (peripheral artery disease) Renal artery stenosis Cardiomyopathy CHF (congestive heart failure) Anticoagulant long-term use BASIA (obstructive sleep apnea) HTN (hypertension) Chronic renal insufficiency, stage II (mild) Surgical History Status post cholecystectomy Hx of arthroscopy of right knee S/P appendectomy S/P section S/P hysterectomy Status post tubal ligation Status post aorto-coronary artery bypass graft S/P CABG (coronary artery bypass graft) S/P angioplasty with stent S/P ICD (internal cardiac 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) procedure H/O cardiac radiofrequency ablation Family History Father , AT AGE 65 Hyperlipidemia CAD (coronary artery disease) Hypertension Rheumatoid arthritis Mother , AT AGE 65 Hyperlipidemia CAD (coronary artery disease) Hypertension Diabetes Sister Hyperlipidemia CAD (coronary artery disease) Hypertension Diabetes Other Cancer Social History Smoking and tobacco/nicotine status: former use of tobacco/nicotine Second hand smoke exposure: No Alcohol intake: never Substance/Drug Use: never Marital status: Current occupational status: retired Female Reproductive History Spontaneous abortions: No Data Anesthesia 11/20/23 08:24 11/19/23 17:50 Short CBC 11/19/23 11/20/23 Range/Units 17:50 08:24 WBC 10.03 8.32 (3.29-11.43) 10^3/uL Hgb 5.40 L* 6.80 L (11.27-16.99) g/dL Hct 16.8 L* 21.0 L (36-47) % MCV 104.3 H 95.9 D (85-98) fl Plt Count 146 L 91 L D (157-399) 10^3/cmm Neut % (Auto) 81.3 84.2 % Neut # (Auto) 8.16 H 7.00 (1.8-7.7) 10^3/uL BMP 11/19/23 17:50 Sodium 130 L Potassium 5.3 H Chloride 92 L Carbon Dioxide 17 L BUN 97 H* D Creatinine 4.9 H Glucose 91 Calcium 8.6 Liver Function 11/19/23 Range/Units 17:50 Total Bilirubin 1.3 H (0.15-1.2) mg/dL AST 38 H (0-32) U/L ALT < 5 (0-33) U/L Alkaline Phosphatase 184 H (35-105) U/L Albumin 3.2 L (3.5-5.2) g/dL Urine 11/19/23 Range/Units 19:00 Urine Color Yellow (Yellow) Urine Appearance Cloudy A (CLEAR) Urine pH 5 (5-7) Ur Specific [place] 1.005 (1.005-1.030) Urine Protein 1+ H (Negative) Urine Glucose (UA) Norm (Normal) Urine Ketones 1+ H (Negative) Urine Nitrate Negative (Negative) Urine Bilirubin Neg (Negative) Ur Leukocyte Esterase 2+ H (Negative) Urine RBC 5-10 H (0-2) /hpf Urine WBC 25-40 H (0-5) /hpf Blood Bank 11/19/23 17:50 Blood Type O Positive Rho(D) Type Rh positive Antibody Screen Negative Coags 11/19/23 11/20/23 17:50 04:00 PT 69.90 H 33.10 H D INR 7.93 H* 3.10 H APTT 176.1 H* Microbiology 11/19/23 19:00 Blood Culture - Preliminary Blood SPECIMEN COLLECTED 11/19/23 18:34 Blood Culture - Preliminary Blood SPECIMEN COLLECTED Cardiac Studies: 2 Echocardiogram 06/21/23 Echocardiogram Limited Views 10/21/23 Transesophageal Echocardiogram 09/21/22 Sestamibi Stress Test (Cardiology) 10/05
[2023-11-20 09:03] LABS: INR 2.19 (0.8-1.2)
[2023-11-20 09:10] LABS: Alanine Aminotransferase < 5 U/L (0-33); Albumin Level 3.5 g/dL (3.5-5.2); Alkaline Phosphatase 180 U/L (35-105); Aspartate Amino Transferase 42 U/L (0-32); Calcium 8.7 mg/dL (8.5-10.5); Carbon Dioxide 15 mmol/L (22-29); Chloride 93 mmol/L (98-107); Globulin 2.7 g/dL (1.3-4.6); Glucose 89 mg/dL (65-115); Osmolality Calculated 307 mOsm/kg (285-295); Sodium 133 mmol/L (136-145); Total Bilirubin 1.6 mg/dL (0.15-1.2); Total Protein 6.2 g/dL (6.6-8.7)
[2023-11-20] MEDS: sodium bicarbonate 8.4% 1 mEq/mL 50mL Syr 50 MEQ IVP ×2 (09:36→11:41)
[2023-11-20] MEDS: FUROsemide 10 mg/mL SDV 4mL 40 MG IVP (09:36)
[2023-11-20] MEDS: phytonadione (ADULT) 5 MG in sodium chloride 0.9% 50 ML 151.5 MG IV (09:36)
[2023-11-20 09:41] LABS: Anion Gap 30.4 (5-19); Creatinine Clr Calc Pharmacy 10.7768; Potassium 5.4 mmol/L (3.5-5.1)
[2023-11-20 09:42] LABS: Blood Urea Nitrogen 101 mg/dL (8-23)
[2023-11-20 10:22] LABS: NT Pro B Type Natriuretic Pept 42797 pg/mL (0-125)
--- NOTE | 2023-11-20 11:13 | P.CONIM_ITS ---
Providers/Reason For Consult 2 Consulting Physician/Specialty*: Filiberto Patel MD, telemetry nephrology Reason for Consult*: Acute kidney injury, hyperkalemia, increased anion gap metabolic acidosis Requesting Physician: Dr Kenneth Loya Attending Physician: Ish Loya MD Primary Care Provider: Derek Dowd DO History of Present Illness History of Present Illness Essie Alejandre is a 73 year old female admitted to the hospital yesterday with hypotension, GI bleed. Patient has a history of heart failure with reduced EF of approximately 20%, UTI, recent Staphylococcus aureus bacteremia with the Port-A-Cath removed. She had 6 weeks of antibiotics that were to stop on December 01, 2023. She has history of non-ST elevation [place], cirrhotic liver on imaging known atrophic right kidney, anemia questional pulmonary embolism on previous imaging. Patient has a 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 on recent admission patient had significant diuresis. Patient has baseline creatinine of 0.6 in 2022 her creatinine went up to 1.1 mg/dL September 2023 by October 2023 her creatinine was ready 2.1 mg/dL. Patient has mild hypothyroidism. Patient has been complaining of abdominal pain in the past with negative workup. Patient was discharged from our facility on November 01, 2023 to rehab on cefazolin along with potassium and Bumex. As stated patient came back to the hospital yesterday with shortness of breath bloody vomitus tremor and patient was found to have hemoglobin of 5.6 and acute kidney injury lactic acid 2.5 creatinine of 4.9 INR 7.9 urinalysis with 25-40 white cells. Patient was given Protonix vitamin K normal saline. Patient still has an increase in negative metabolic acidosis and is oliguric and renal has been asked to see the patient. Review of Systems 2 Narrative: Weak, confused she knows she is in [facility], short of breath, nausea difficulty eating, vomiting, edema or urine output. Denies diarrhea., Black stools. Itching weakness confusion denies shortness of breath. Medications/Allergies Home Medications Medication Instructions Recorded Confirmed Last Taken Type omega-3 fatty acids 1,000 mg 1,000 mg PO DAILY 03/24/22 11/20/23 11/18/23 07:45 History capsule acetaminophen 650 mg 1,300 mg PO BID 09/17/22 11/20/23 11/19/23 10:00 History tablet,extended release (Tylenol Arthritis Pain) nitroglycerin 0.4 mg sublingual 0.4 mg sublingual Q5M PRN Chest 12/06/22 11/20/23 Unknown Rx tablet (Nitrostat) Pain #30 tabs atorvastatin 40 mg tablet 40 mg PO QAM #90 tabs 12/13/22 11/20/23 11/18/23 07:45 Rx sertraline 100 mg tablet 100 mg PO QAM #90 tabs 12/13/22 11/20/23 11/19/23 10:00 Rx allopurinol 100 mg tablet 400 mg (4 x 100 mg) PO DAILY #120 04/27/23 11/20/23 11/19/23 10:15 Rx tabs ascorbic acid (vitamin C) 500 mg See Rx Instructions .Route .COMPLEX 06/06/23 11/20/23 11/18/23 07:45 History tablet (Vitamin C) bisacodyl 5 mg tablet,delayed 5 mg PO DAILY PRN Constipation 06/06/23 11/04/23 08/24/23 History release (Dulcolax (bisacodyl)) ferrous sulfate 325 mg (65 mg See Rx Instructions .Route .COMPLEX 06/06/23 11/20/23 11/18/23 07:30 History iron) tablet (Iron (ferrous sulfate)) albuterol sulfate 90 mcg/actuation 2 puff inhalation QID PRN 06/29/23 11/20/23 1 Day Ago Rx aerosol inhaler Shortness Of Breath #8.5 grams ~10/13/23 alprazolam 0.5 mg tablet 0.5 mg PO DAILY PRN Anxiety #20 06/29/23 11/20/23 11/16/23 07:00 Rx tabs galantamine 4 mg tablet 4 mg PO BID #60 tabs 07/15/23 11/20/23 11/18/23 06:00 Rx metoprolol tartrate 25 mg tablet 25 mg PO BID #120 tabs 07/19/23 11/20/23 11/19/23 10:00 Rx clopidogrel 75 mg tablet 75 mg PO BEDTIME 08/01/23 11/20/23 11/18/23 08:00 History potassium chloride 20 mEq 20 meq PO BID #60 tabs 09/06/23 11/20/23 11/18/23 20:00 Rx tablet,extended release(part/cryst) magnesium 200 mg tablet 200 mg PO DAILY #30 tabs 10/08/23 11/20/23 11/18/23 07:45 Rx bumetanide 1 mg tablet 3 mg (3 x 1 mg) PO DAILY PRN Edema 11/01/23 11/20/23 11/19/23 10:00 Rx #90 tabs cefazolin 2 gram intravenous 2 g IV Q8H 1 month 11/01/23 11/20/23 11/19/23 10:00 Rx solution famotidine 10 mg tablet 10 mg PO DAILY #90 tabs 11/01/23 11/20/23 11/18/23 07:00 Rx isosorbide mononitrate 30 mg 30 mg PO DAILY #90 tabs 11/01/23 11/20/23 11/19/23 10:00 Rx tablet,extended release 24 hr albuterol sulfate 90 mcg/actuation inhalation 11/20/23 11/20/23 Unknown History aerosol inhaler Allergies Allergy/AdvReac Type Severity Reaction Status Date / Time tizanidine Allergy Unknown ADR-Halluci Verified 11/04/23 08:42 nating levofloxacin [From Levaquin] Allergy ALGY-Redness Verified 11/04/23 08:42 of Skin Sulfa (Sulfonamide Allergy hives Verified 11/04/23 08:42 Antibiotics) adhesive tape AdvReac Mild Unknown Verified 11/04/23 08:42 Current Medications Generic Name Dose Route Start Last Admin Trade Name Freq PRN Reason Stop Dose Admin Piperacillin Sod/Tazobactam 50 mls @ 12.5 mls/hr 11/19/23 23:45 11/20/23 04:01 Sod 3.375 gm/ Sodium Chloride IV 12.5 mls/hr Q12H JEREMY Administration Pantoprazole Sodium 40 mg 11/19/23 20:30 11/20/23 06:19 Pantoprazole 40 Mg Sdv IVP 40 mg Q12H JEREMY Administration PFSH Acute 2 PFSH: Medical History (Updated 11/20/23 @ 04:35 by Cristhian Caldera DO) GI bleed NSTEMI (non-ST elevated myocardial infarction) Hospital discharge follow-up Leg swelling CVA (cerebral vascular accident) History of colon polyps Shortness of breath Mastitis Breast enlargement Cholecystitis Bacterial vaginosis Needs flu shot UTI (urinary tract infection) Degenerative disc disease, cervical Neuropathy Staphylococcus epidermidis bacteremia Pulmonary embolism Mixed incontinence urge and stress Facet arthritis, degenerative, cervical spine Cervical osteoarthritis Chronic neck pain Chest pain Follow-up exam Edema of all four extremities Abnormal laboratory test result Neutropenia Diuretic-induced hypokalemia Parainfluenza infection Acute exacerbation of chronic obstructive pulmonary disease Chronic headaches Acute alteration in mental status Essential hypertension Thrush, oral Dysphagia Hypokalemia Hypomagnesemia Mixed dyslipidemia Fatigue Allergic rhinitis Esophageal spasm GERD with esophagitis Lumbar disc disease with radiculopathy Facet arthropathy, lumbar GERD without esophagitis Establishing care with new doctor, encounter for Nausea & vomiting High risk medication use High risk medication use Thrush Cellulitis Anemia Port-A-Cath in place Poor venous access Hearing loss associated with syndrome of both ears Elevated troponin I level Acute cystitis without hematuria Intracranial atherosclerosis Balance disorder Cognitive impairment Cardiac 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 therapy 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 (NEUROSURGICAL NURSE PRACTITIONER-D) in place Recurrent UTI CKD (chronic kidney disease) stage 3, GFR 30-59 ml/min 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 GERD (gastroesophageal reflux disease) Hyperlipidemia Iron deficiency anemia Gout Sleep apnea Vertebral artery stenosis Left bundle branch block Right internal carotid artery aneurysm Vertebrobasilar insufficiency Atrial fibrillation PAD (peripheral artery disease) Renal artery stenosis Cardiomyopathy CHF (congestive heart failure) Anticoagulant long-term use BASIA (obstructive sleep apnea) HTN (hypertension) Chronic renal insufficiency, stage II (mild) Surgical History Status post cholecystectomy Hx of arthroscopy of right knee S/P appendectomy S/P section S/P hysterectomy Status post tubal ligation Status post aorto-coronary artery bypass graft S/P CABG (coronary artery bypass graft) S/P angioplasty with stent S/P ICD (internal cardiac 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) procedure H/O cardiac radiofrequency ablation Family History Father , AT AGE 65 Hyperlipidemia CAD (coronary artery disease) Hypertension Rheumatoid arthritis Mother , AT AGE 65 Hyperlipidemia CAD (coronary artery disease) Hypertension Diabetes Sister Hyperlipidemia CAD (coronary artery disease) Hypertension Diabetes Other Cancer Social History Smoking and tobacco/nicotine status: former use of tobacco/nicotine Second hand smoke exposure: No Alcohol intake: never Substance/Drug Use: never Marital status: Current occupational status: retired Female Reproductive History: Spontaneous abortions: No Vitals/I&O/Wt Last Vital Signs Temp 98.1 F 11/20/23 11:08 Pulse 72 11/20/23 11:08 Resp 16 11/20/23 11:08 BP 122/32 11/20/23 11:08 Pulse Ox 99 11/20/23 11:08 O2 Del Method Room Air 11/20/23 08:35 11/19/23 11/20/23 11/20/23 22:59 06:59 14:59 Intake Total 50.5 / 50.5 566 / 616.5 0 / 0 Output Total 220 / 220 Balance 50.5 / 50.5 346 / 396.5 0 / 0 Weight last 48 hrs Weight 76.566 kg Weight 76.476 kg Physical Exam 2 Narrative: Elderly ill-appearing lady in bed hemodynamically stable. HEENT normocephalic/atraumatic. Neck is supple Lungs good air movement. Heart irregular with heart rate control. Abdomen soft positive bowel sounds. Extremities bilateral 1-2+ leg edema. Neuro lethargic however awakens follows simple commands knows she is in the hospital. Data 11/20/23 08:24 11/20/23 08:24 Micro: Microbiology 11/19/23 19:00 Blood Culture - Preliminary Blood SPECIMEN COLLECTED 11/19/23 18:34 Blood Culture - Preliminary Blood SPECIMEN COLLECTED A&P Assessment and plan (1) Acute on chronic renal insufficiency: 73-year-old lady history of heart failure reduced EF, CABG, PCI, question pulmonary embolism, hypertension, obstructive sleep apnea, A-fib, peripheral arterial disease, atrophic right kidney, liver cirrhosis, recent Staph aureus bacteremia 1. Patient here with GI bleed. 2. Acute kidney injury in this patient baseline creatinine was normal 1 year ago was 0.61 up to 1.1 mg/dL September 2023. Creatinine of 2.1 mg/dL 3 weeks ago when she left the hospital and most of October. Now with a creatinine of 5 mg/dL. Imaging without hydronephrosis however she does have an atrophic right kidney. Urinalysis reviewed 1+ protein she does have 1+ ketones 3+ blood, leukocytes 2+ 25-40 white cells question of UTI on antibiotics. Patient has CT scan showing un changes atrophy of the right kidney with diffuse cortical thinning some simple cyst no hydronephrosis Differential diagnosis in this patient is: a ATN, risk would be being on diuretics not eating well having a GI bleed and likely having some hypotension the patient with heart failure reduced EF and having an atrophic right kidney at baseline b infection related GN though does not have significant hematuria can send complements C. interstitial nephritis from antibiotics d/ less likely abdomen Alysis is AST and ALT are very low. e. Less likely cardiorenal syndrome though can be contributing. Also note patient received contrast yesterday was already in acute kidney injury. Patient is at high risk for progression of acute kidney injury and is oliguric. As patient is hemodynamically stable and comfortable on room air at this time my recommendation would be giving fluids and monitor renal function no emergent need for dialysis 3. Increased anion gap metabolic acidosis somewhat from lactate. Repeat serum ketones be concern for starvation ketoacidosis. Likely that she took any toxins while in the rehab center. Renal failure can also cause an increased anion gap metabolic acidosis. 4. Hyperkalemia likely from acute kidney injury will treat medically. Avoid Kayexalate with GI bleed. 5. Anemia from GI bleed and also from chronic disease. Negative SPEP. Can check B12 and folate level. 6. Hyponatremia from acute kidney injury check TSH level check urine electrolytes again 7. Elevated BNP patient with heart failure reduced EF-monitor volume status and oxygenation. Patient seen and examined with the patient's nurse discussed the case in detail with patient's . He gives consent to telehealth visit and to hemodialysis if necessary. Would only want dialysis temporarily. The patient was seen and examined using A/V equipment. Plan See above. Consult Attestations 2 Medical Necessity Statement: Acute kidney injury, Time Spent in Patient Care: Greater than 35 minutes (>than 50% of time spent in counselling and/or direct pt care on unit) . Coding Level of Care Code Acute Code for g Fwd Diagnoses Acute on chronic renal insufficiency N28.9; N18.9
[2023-11-20] MEDS: dextrose 10% 125 ML 750 ML IV (11:41)
[2023-11-20] MEDS: sodium bicarbonate 50 MEQ in sodium chloride 0.45% 1,000 ML IV (11:42)
[2023-11-20] MEDS: insulin regular-human 10 UNIT in SYRINGE 1 EACH 100 UNIT IVP (11:42)
[2023-11-20 12:35] LABS: Basophils % 0.4 %; Hematocrit 21.2 % (36-47); Lymphocytes # 0.6 10^3/uL (0.8-4.8); Lymphocytes % 8.1 %; Mean Corpuscular HGB Conc 31.6 g/dL (30-55); Mean Corpuscular Hemoglobin 31.9 pg (27-33); Mean Platelet Volume 11.1 fL (7.4-10.4); Monocytes # 0.1 10^3/uL (0.2-0.9); Monocytes % 1.5 %; Neutrophils # 7.01 10^3/uL (1.8-7.7); Neutrophils % 89.2 %; Nucleated Red Blood Cells % 0.4 %; Platelet Count 69 10^3/cmm (157-399); Red Cell Distribution Width 24.5 % (12.1-15.1); White Blood Count 7.86 10^3/uL (3.29-11.43)
[2023-11-20 12:38] LABS: INR 1.74 (0.8-1.2)
[2023-11-20 12:43] LABS: ABG PCO2 32.8 mmHg (35-45); ABG PH Result 7.41 (7.35-7.45); Alveolar-Arterial Oxygen Gradi 3.1 mmHg (5-10); Arterial Blood Gas Hematocrit 18.2 % (37-47); Base Excess ABG -3.8 mmol/L (-2.0-2.0); Blood Gas Allen Test Pos; Blood Gas Operator Identificat CAK; Blood Gas Sample Site Brachial, left; Blood Gas Sample Type Arterial; Carboxyhemoglobin 2.2 %THgb (0.4-20.1); HCO3 ABG 20.5 mmol/L (22-26); HGB O2 Sat 95.5 % (95-100); Ionized Calcium Level - ABG 1.1 mmol/L (1.1-1.4); Methemoglobin 0.3 % (0.4-1.5); Oxygen Device ROOM AIR; PO2 ABG 84.4 mmHg (80.0-100.0); PO2 FiO2 Ratio Arterial Blood 401; Potassium Level - ABG 4.3 mmol/L (3.5-5.0); Total Hemoglobin 5.9 g/dL (12-16)
[2023-11-20] MEDS: epoetin alfa 10,000 unit/mL INJ 10000 UNIT SUBCUT (12:53)
--- NOTE | 2023-11-20 13:21 | P.CONIM_ITS ---
Providers/Reason For Consult 2 Consulting Physician/Specialty*: Dr. Fran Amaya, /General surgery Reason for Consult*: GI bleed Attending Physician: Ish Loya MD Primary Care Provider: Derek Dowd DO History of Present Illness History of Present Illness Essie Alejandre is a 73 year old female, who is well-known to me, who presented to the hospital with melena and acute blood loss anemia. Patient is quite somnolent and her is answering most questions for her. For this reason HPI and review of systems are limited. Patient's reports that for the last few days she has been having severe lower abdominal pain, but she has been having occasional lower abdominal pain for months. For greater than a day she has been passing black stools and clots. She takes Plavix but does not take any anticoagulants. Despite this, she presented with a very elevated INR. Review of Systems 2 General: Reports: ROS unobtainable due to medical condition Medications/Allergies Home Medications Medication Instructions Recorded Confirmed Last Taken Type omega-3 fatty acids 1,000 mg 1,000 mg PO DAILY 03/24/22 11/20/23 11/18/23 07:45 History capsule acetaminophen 650 mg 1,300 mg PO BID 09/17/22 11/20/23 11/19/23 10:00 History tablet,extended release (Tylenol Arthritis Pain) nitroglycerin 0.4 mg sublingual 0.4 mg sublingual Q5M PRN Chest 12/06/22 11/20/23 Unknown Rx tablet (Nitrostat) Pain #30 tabs atorvastatin 40 mg tablet 40 mg PO QAM #90 tabs 12/13/22 11/20/23 11/18/23 07:45 Rx sertraline 100 mg tablet 100 mg PO QAM #90 tabs 12/13/22 11/20/23 11/19/23 10:00 Rx allopurinol 100 mg tablet 400 mg (4 x 100 mg) PO DAILY #120 04/27/23 11/20/23 11/19/23 10:15 Rx tabs ascorbic acid (vitamin C) 500 mg See Rx Instructions .Route .COMPLEX 06/06/23 11/20/23 11/18/23 07:45 History tablet (Vitamin C) bisacodyl 5 mg tablet,delayed 5 mg PO DAILY PRN Constipation 06/06/23 11/04/23 08/24/23 History release (Dulcolax (bisacodyl)) ferrous sulfate 325 mg (65 mg See Rx Instructions .Route .COMPLEX 06/06/23 11/20/23 11/18/23 07:30 History iron) tablet (Iron (ferrous sulfate)) albuterol sulfate 90 mcg/actuation 2 puff inhalation QID PRN 06/29/23 11/20/23 1 Day Ago Rx aerosol inhaler Shortness Of Breath #8.5 grams ~10/13/23 alprazolam 0.5 mg tablet 0.5 mg PO DAILY PRN Anxiety #20 06/29/23 11/20/23 11/16/23 07:00 Rx tabs galantamine 4 mg tablet 4 mg PO BID #60 tabs 07/15/23 11/20/23 11/18/23 06:00 Rx metoprolol tartrate 25 mg tablet 25 mg PO BID #120 tabs 07/19/23 11/20/23 11/19/23 10:00 Rx clopidogrel 75 mg tablet 75 mg PO BEDTIME 08/01/23 11/20/23 11/18/23 08:00 History potassium chloride 20 mEq 20 meq PO BID #60 tabs 09/06/23 11/20/23 11/18/23 20:00 Rx tablet,extended release(part/cryst) magnesium 200 mg tablet 200 mg PO DAILY #30 tabs 10/08/23 11/20/23 11/18/23 07:45 Rx bumetanide 1 mg tablet 3 mg (3 x 1 mg) PO DAILY PRN Edema 11/01/23 11/20/23 11/19/23 10:00 Rx #90 tabs cefazolin 2 gram intravenous 2 g IV Q8H 1 month 11/01/23 11/20/23 11/19/23 10:00 Rx solution famotidine 10 mg tablet 10 mg PO DAILY #90 tabs 11/01/23 11/20/23 11/18/23 07:00 Rx isosorbide mononitrate 30 mg 30 mg PO DAILY #90 tabs 11/01/23 11/20/23 11/19/23 10:00 Rx tablet,extended release 24 hr albuterol sulfate 90 mcg/actuation inhalation 11/20/23 11/20/23 Unknown History aerosol inhaler Allergies Allergy/AdvReac Type Severity Reaction Status Date / Time tizanidine Allergy Unknown ADR-Halluci Verified 11/04/23 08:42 nating levofloxacin [From Levaquin] Allergy ALGY-Redness Verified 11/04/23 08:42 of Skin Sulfa (Sulfonamide Allergy hives Verified 11/04/23 08:42 Antibiotics) adhesive tape AdvReac Mild Unknown Verified 11/04/23 08:42 Current Medications Generic Name Dose Route Start Last Admin Trade Name Freq PRN Reason Stop Dose Admin Piperacillin Sod/Tazobactam 50 mls @ 12.5 mls/hr 11/19/23 23:45 11/20/23 04:01 Sod 3.375 gm/ Sodium Chloride IV 12.5 mls/hr Q12H JEREMY Administration Dextrose 125 mls @ 750 mls/hr 11/20/23 10:27 11/20/23 11:41 D10w IV 750 mls/hr PRN PRN Administration HYPOGLYCEMIA Sodium Bicarbonate 50 meq/ 1,050 mls @ 120 mls/hr 11/20/23 10:30 11/20/23 11:42 Sodium Chloride IV 50 mls/hr .Q8H45M JEREMY Administration Pantoprazole Sodium 40 mg 11/19/23 20:30 11/20/23 06:19 Pantoprazole 40 Mg Sdv IVP 40 mg Q12H JEREMY Administration Sucralfate 1 gm 11/20/23 08:00 11/20/23 11:33 Sucralfate 1 Gm/10 Ml Oral Liq Udc PO Not Given Q6H JEREMY PFSH Acute 2 PFSH: Medical History GI bleed NSTEMI (non-ST elevated myocardial infarction) Hospital discharge follow-up Leg swelling CVA (cerebral vascular accident) History of colon polyps Shortness of breath Mastitis Breast enlargement Cholecystitis Bacterial vaginosis Needs flu shot UTI (urinary tract infection) Degenerative disc disease, cervical Neuropathy Staphylococcus epidermidis bacteremia Pulmonary embolism Mixed incontinence urge and stress Facet arthritis, degenerative, cervical spine Cervical osteoarthritis Chronic neck pain Chest pain Follow-up exam Edema of all four extremities Abnormal laboratory test result Neutropenia Diuretic-induced hypokalemia Parainfluenza infection Acute exacerbation of chronic obstructive pulmonary disease Chronic headaches Acute alteration in mental status Essential hypertension Thrush, oral Dysphagia Hypokalemia Hypomagnesemia Mixed dyslipidemia Fatigue Allergic rhinitis Esophageal spasm GERD with esophagitis Lumbar disc disease with radiculopathy Facet arthropathy, lumbar GERD without esophagitis Establishing care with new doctor, encounter for Nausea & vomiting High risk medication use High risk medication use Thrush Cellulitis Anemia Port-A-Cath in place Poor venous access Hearing loss associated with syndrome of both ears Elevated troponin I level Acute cystitis without hematuria Intracranial atherosclerosis Balance disorder Cognitive impairment Cardiac 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 therapy 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 (SALT LIFTER-D) in place Recurrent UTI CKD (chronic kidney disease) stage 3, GFR 30-59 ml/min 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 GERD (gastroesophageal reflux disease) Hyperlipidemia Iron deficiency anemia Gout Sleep apnea Vertebral artery stenosis Left bundle branch block Right internal carotid artery aneurysm Vertebrobasilar insufficiency Atrial fibrillation PAD (peripheral artery disease) Renal artery stenosis Cardiomyopathy CHF (congestive heart failure) Anticoagulant long-term use BASIA (obstructive sleep apnea) HTN (hypertension) Chronic renal insufficiency, stage II (mild) Surgical History Status post cholecystectomy Hx of arthroscopy of right knee S/P appendectomy S/P section S/P hysterectomy Status post tubal ligation Status post aorto-coronary artery bypass graft S/P CABG (coronary artery bypass graft) S/P angioplasty with stent S/P ICD (internal cardiac 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) procedure H/O cardiac radiofrequency ablation Family History Father , AT AGE 65 Hyperlipidemia CAD (coronary artery disease) Hypertension Rheumatoid arthritis Mother , AT AGE 65 Hyperlipidemia CAD (coronary artery disease) Hypertension Diabetes Sister Hyperlipidemia CAD (coronary artery disease) Hypertension Diabetes Other Cancer Social History Smoking and tobacco/nicotine status: former use of tobacco/nicotine Second hand smoke exposure: No Alcohol intake: never Substance/Drug Use: never Marital status: Current occupational status: retired Female Reproductive History: Spontaneous abortions: No Vitals/I&O/Wt Last Vital Signs Temp 98.2 F 11/20/23 11:15 Pulse 75 11/20/23 11:15 Resp 16 11/20/23 11:08 BP 122/32 11/20/23 11:08 Pulse Ox 100 11/20/23 11:15 O2 Del Method Room Air 11/20/23 08:35 11/19/23 11/20/23 11/20/23 22:59 06:59 14:59 Intake Total 50.5 / 50.5 566 / 616.5 0 / 0 Output Total 220 / 220 Balance 50.5 / 50.5 346 / 396.5 0 / 0 Weight last 48 hrs Weight 168 lb 12.8 oz Weight 168 lb 9.6 oz Physical Exam 2 Narrative: General : Patient is well developed , no acute distress, somewhat somnolent and not answering most questions Head : Normal cephalic, a-traumatic. Ears : Pinnae and external canal are normal. Hearing is normal. Eyes : PERRLA, Sclera and injection are normal. No conjunctival discharge. Nose : Mucous membranes are without erythema. Throat : buccal mucosa is normal, gums are without significant recession or hypertrophy. Lungs : Equal chest rise bilaterally, no use of accessory muscles, trachea is midline. Cor : Rate and rhythm are normal. Abdomen : Soft, ND, NT, no g/r/m Extremities : No edema, no cyanosis or clubbing, dorsalis pedis pulses are present bilaterally, non-tender to palpation of calves. Upper extremities are normal bilaterally. Back : non-tender to palpation, no CVA tenderness. Neuro : CN II - XII intact, Upper and lower extremities have equal and full strength Data 11/20/23 12:10 11/20/23 08:24 Micro: Microbiology 11/19/23 19:00 Blood Culture - Preliminary Blood SPECIMEN COLLECTED 11/19/23 18:34 Blood Culture - Preliminary Blood SPECIMEN COLLECTED A&P Assessment and plan (1) Acute upper GI bleed: (2) Acute blood loss anemia: (3) GERD (gastroesophageal reflux disease): (4) Supratherapeutic INR: (5) Abdominal pain: (6) Congestive heart failure: Qualifiers: Heart failure chronicity: acute on chronic Heart failure type: d iastolic Qualified Code(s): I50.33 - Acute on chronic diastolic (congestive) heart failure Plan Patient was given PRBCs and coagulopathy was corrected with vitamin K and a minimal amount of FFP to bring the INR down below 1.7. Last INR was 1.74 and 1 more unit is being given prior to: EGD The risks and benefits of the procedure, including bleeding, infection, intestinal perforation requiring surgery, missed lesion were explained to the patient. The patient is understanding of the risks and wishes to proceed. Coding Level of Care Code 84118 Diagnoses Acute upper GI bleed K92.2 Acute blood loss anemia D62 GERD (gastroesophageal reflux disease) K21.9 Supratherapeutic INR R79.1 Abdominal pain R10.9 Acute on chronic diastolic congestive heart failure I50.33 Heart failure chronicity: acute on chronic Heart failure type: diastolic
[2023-11-20 14:04] LABS: Ketone (Acetest) Serum Negative (Negative)
--- NOTE | 2023-11-20 14:18 | ANE.PACU2 ---
Inpatient post-anesthesia follow up: Airway intact: Yes Vital signs: Temperature 98.2 F Pulse Rate 75 Respiratory Rate 16 Blood Pressure 122/32 Pulse Oximetry 100 Oxygen Delivery Me thod [ Room Air Current Rate & Del yocasta] Oxygen Delivery Me thod Room Air Oxygen Flow Rate Fraction of Inspir ed Oxygen Hydration adequate: Yes Nausea and vomiting: No Pain level: controlled Mental status: Baseline Additional Comments: no apparent anesthetic complications noted
[2023-11-20 14:19] LABS: Hepatitis C Virus Antibody Non-Reactive (Nonreactive); Thyroid Stimulating Hormone 16.89 uIU/mL (0.27-4.20)
[2023-11-20 14:20] LABS: Cortisol Random 22.34 ug/dL (2.47-19.5)
[2023-11-20 14:31] LABS: Anion Gap 29.5 (5-19); Calcium 8.7 mg/dL (8.5-10.5); Carbon Dioxide 18 mmol/L (22-29); Chloride 94 mmol/L (98-107); Complement C3 68 mg/dL (90-180); Creatine Phosphokinase 154 U/L (26-192); Glucose 67 mg/dL (65-115); Osmolality Calculated 313 mOsm/kg (285-295); Potassium 4.5 mmol/L (3.5-5.1); Sodium 137 mmol/L (136-145)
[2023-11-20 14:34] LABS: Creatinine Clr Calc Pharmacy 11.0014
[2023-11-20 14:35] LABS: Blood Urea Nitrogen 98 mg/dL (8-23)
[2023-11-20 16:26] LABS: Potassium, Radom Urine 56 mmol/L; Urine Creatinine 57 mg/dL (28-217); Urine Random Chloride 29 mmol/L; Urine Random Sodium 28 mmol/L
[2023-11-20] MEDS: sucralfate 1 gm/10 mL Oral Liq UDC PO (16:29)
[2023-11-20 16:31] LABS: Blood Urine 3+ (Negative); Glucose Urine UA Norm (Normal); Ketones Urine Negative (Negative); Protein Urine 1+ (Negative); Specific Gravity, Urine 1.015 (1.005-1.030); Urine Appearance Slightly Cloudy (CLEAR); Urine Color Yellow (Yellow); pH Urine 5 (5-7)
[2023-11-20 16:32] LABS: Add Urine Culture? Yes; Bacteria Urine 1+ /hpf; Bilirubin Urine Neg (Negative); Leukocyte Esterase Urine 2+ (Negative); Nitrate Urine Negative (Negative); RBC Urine 25-40 /hpf (0-2); Squamous Epithelial Cell Urine 0-4 /hpf (0-5); Urobilinogen Urine Norm (Negative); WBC Urine >100 /hpf (0-5)
--- NOTE | 2023-11-20 17:28 | CTR_ITS ---
PROCEDURE INFORMATION: Exam: CT Head Without Contrast Exam date and time: 11/21/2023 2:31 AM Age: 73 years old Clinical indication: Altered mental status/memory loss; Confusion or disorientation; Patient HX: Persistent confusion; Additional info: Encepjhalopathy TECHNIQUE: Imaging protocol: Computed tomography of the head without contrast. Radiation optimization: All CT scans at this facility use at least one of these dose optimization techniques: automated exposure control; mA and/or kV adjustment per patient size (includes targeted exams where dose is matched to clinical indication); or iterative reconstruction. COMPARISON: CT head wo con* [id number] 10/07/2023 10:43 PM RADIATION DOSE METRICS: Total DLP (mGy-cm): 1899.28 FINDINGS: Brain: The study is degraded by streak artifact. There is no obvious mass effect, midline shift, acute hemorrhage or acute lobar infarct. At the high posterior frontal vertex on the left there is a 29 x 28 x 31 mm extra-axial fluid collection likely representing an arachnoid cyst. Cerebral ventricles: No ventriculomegaly. Paranasal sinuses: Visualized sinuses are unremarkable. No fluid levels. Mastoid air cells: Visualized mastoid air cells are well aerated. Bones: Unremarkable. No acute fracture. Soft tissues: Unremarkable. CT/CT head wo con* [id number] IMPRESSION: No acute intracranial process.
--- NOTE | 2023-11-20 17:43 | P.PN_ITS ---
Subjective 2 Subjective: Patient was examined multiple times throughout the morning and into the afternoon ? Early in the morning she was seen she was alert to person, to place, not to time, encephalopathic at times she would follow commands at other times she would be quite delayed in terms of responses no facial droop she is moving both upper lower extremities, spontaneously, is at bedside # at bedside tells me that she is not taking Eliquis at the [facility] she is on Plavix ? She is currently on room air, normotensive, is encephalopathic, she is having active black tarry bowel movements in the ICU ? Spoke to general surgery, INR and CBC is pending, EGD has been delayed ? INR has come back at greater than 2, will give 2 units unit of FFP, hemoglobin 6.9 will give 1 unit PRBC ? She was monitored thereafter, continues to have episodes of black tarry bowel movements, normotensive, she is alert, awake, complaining of abdominal pain, ? Concern for fluid overload BMP came back shows evidence of metabolic acidosis, BNP over 40,000, uremia, elevated creatinine, on examination she has evidence of 2+ pitting edema, still on room air, will give her 1 dose of Lasix Spoke to nephrology, concerns for uremia, uremic encephalopathy, worsening renal failure, with elevated BNP ? Will start her on sodium bicarb drip continue to diurese as needed, for fluid overload, ? Spoke to at bedside, discussed that currently her status is critical, prognosis is guarded, she has an upper GI bleed, requiring transfusion, she is developing fluid overload, acute renal failure, acute encephalopathy, will consult nephrology, she might need dialysis, discussed her CODE STATUS in detail she is a DO NOT RESUSCITATE, but is okay with intubation if needed to protect her airway ? Discussed with that it is a poor prognostic indicator that patient is developing acute fluid overload with evidence of acute renal failure, with her ongoing GI bleed, she has a high risk of morbidity and mortality, her status is critical, prognosis is guarded, she has a high risk of acute clinical deterioration, will have to monitor very closely, in the ICU ? She was monitored thereafter, she remains normotensive, remains on room air, patient had her EGD ? She received a 30 unit FFP, as INR was 1.7, platelet count 69, receiving 1 unit platelet, Exa?EGD showed severe duodenitis, contact bleeding, portal hypertensive gastropathy, small hiatal hernia, nonbleeding esophageal varices, clips were placed in her duodenum, 1 into the stomach, General surgery has placed her on clear liquids She was examined she remains encephalopathic, will keep her n.p.o. due to encephalopathy, risk of aspiration ? She was examined again, she is now on 2 to 3 L, on crackles on exam, continues to have worsening edema, developing acute respiratory failure, acute fluid overload, acute encephalopathy, is normotensive but maps are around 65, heart rates are within normal range, she is tachypneic, some nasal flaring, intercostal retractions, mild respiratory distress,, Bumex 1 mg IV push every 8 hours ? Bicarb drip is going at 50 cc an hour, add on Bumex 1 mg every 12 hours monitor very closely for fluid overload, Estes catheter in place, monitor mentation monitor respiratory status very closely ? Kept n.p.o., aspiration precautions, CT of the head, repeat CBC and INR 9 PM Vitals/I&O/Wt Last Vital Signs Temp 97.8 F 11/20/23 14:53 Pulse 81 11/20/23 16:00 Resp 20 H 11/20/23 16:00 BP 122/77 11/20/23 16:00 Pulse Ox 100 11/20/23 16:00 O2 Del Method Room Air 11/20/23 08:35 11/20/23 11/20/23 11/20/23 06:59 14:59 22:59 Intake Total 566 / 616.5 886 / 886 Output Total 220 / 220 Balance 346 / 396.5 886 / 886 Weight last 48 hrs Weight 76.566 kg Weight 76.476 kg Physical Exam 2 Const: COMMON NORMALS: no acute distress ORIENTATION/CONSCIOUSNESS: Yes awake, Yes oriented to person and Yes confused; not oriented to place and not oriented to time Resp: COMMON NORMALS: normal respiratory effort, No retractions and No use of accessory muscles AUSCULTATION: crackles and wheezes Cardio: COMMON NORMALS: regular rate, regular rhythm, S1 normal heart sound present and S2 normal heart sound present RATE: regular rate RHYTHM: r egular rhythm HEART SOUNDS: S1 normal heart sound present and S2 normal heart sound present GI: COMMON NORMALS: Normal to inspection, nondistended, normoactive bowel sounds present and non-tender Extremity: NARRATIVE EXTREMITY EXAM: 2+ edema Neuro: SENSORIUM/ORIENTATION: Yes oriented to person, No oriented to place and No oriented to time Data 11/20/23 12:10 11/20/23 13:19 Micro: Microbiology 11/19/23 19:00 Blood Culture - Preliminary Blood SPECIMEN COLLECTED 11/19/23 18:34 Blood Culture - Preliminary Blood SPECIMEN COLLECTED A&P Assessment and plan (1) HTN (hypertension): Hold blood pressure medications Qualifiers: Hypertension type: primary hypertension Qualified Code(s): I10 - Essential (primary) hypertension (2) Congestive heart failure: Qualifiers: Heart failure chronicity: acute on chronic Heart failure type: d iastolic Qualified Code(s): I50.33 - Acute on chronic diastolic (congestive) heart failure (3) CAD (coronary artery disease): (4) Atrial fibrillation: (5) Supratherapeutic INR: (6) Abdominal pain: (7) BERNADETTE (acute kidney injury): (8) Acute on chronic renal insufficiency: (9) CKD (chronic kidney disease) stage 3, GFR 30-59 ml/min: Qualifiers: Chronic kidney disease stage 3 subtype: stage 3b (GFR 30-44) Qualified Code(s): N18.32 - Chronic kidney disease, stage 3b (10) Urinary tract infection: Qualifiers: Hematuria presence: without hematuria Urinary tract infection type: a cute cystitis Qualified Code(s): N30.00 - Acute cystitis without hematuria (11) Staphylococcus aureus bacteremia: (12) BASIA (obstructive sleep apnea): (13) GI bleed: (14) Acute encephalopathy: (15) Fluid overload: (16) Acute respiratory failure: (17) Acute renal failure: (18) Metabolic acidosis: (19) Thrombocytopenia: (20) Uremia: (21) Hyperbilirubinemia: Plan Acute upper GI bleed ? Status post 2 units of blood, 3 units FFP, 1 unit platelet ? Status post EGD, findings of duodenitis with contact bleeding, clips placed into the duodenum, portal hypertensive gastropathy, small hiatal hernia, nonbleeding esophageal varices ? Plan ? Keep n.p.o. ? Protonix 40 mg IV twice daily ? Carafate ? Given portal hypertensive gastropathy, nonbleeding esophageal varices, will place on octreotide ? Monitor hemoglobin, INR, BMP closely repeat ordered for 9 PM ? Hemoglobin every 4 hours -Transfuse for hemoglobin less than 6 ? Will consider FFP if INR is above 1.5-2 ? Monitor for bloody or black stools -monitor hemodynamics closely Metabolic acidosis, increased anion gap ? Secondary to acute blood loss anemia, potentially starvation ketosis, liver cirrhosis ? Plan ?continue sodium bicarb drip at 50 cc an hour, will consider discontinuing based on next BMP at 9 PM ? Concerns for fluid overload Liver cirrhosis CT scan shows liver having a cirrhotic morphology, small to moderate volume ascites, with anasarca ? Etiology hepatitis panel within normal limits, had a cholecystectomy in August of this year, cannot do an MRCP given her pacemaker ? During her last hospitalization when I took care of her she also developed hyperbilirubinemia, with transaminitis, there was discussion with [facility], they recommended for patient to follow-up with hepatology as outpatient. In review of her records show that when she has had hospitalizations for CHF exacerbation she has had hyperbilirubinemia at that time also ? Thus I suspect her etiology of liver cirrhosis being cardiac cirrhosis, from severe heart failure ? With hyperbilirubinemia ? With thrombocytopenia ? With elevated INR ? Supratherapeutic INR ? Acute renal failure ? Hyperbilirubinemia ? Monitor closely ? Plan Thrombocytopenia ? She had thrombocytopenia during her last hospitalization secondary to Protonix ? Currently on Protonix for her GI bleed will continue monitor platelet count closely Acute hypoxic respiratory failure ? Secondary to acute fluid overload, blood products ? History of systolic CHF, last echocardiogram October 21, 2023 showed a EF of 20% with severe diffuse hypokinesia of the left ventricle ? Plan ? Monitor respiratory status closely -Bumex 1 mg IV every 8 hours -Monitor respiratory status closely will consider BiPAP based on clinical progress ? Monitor creatinine, monitor potassium Acute systolic CHF exacerbation ? As above Acute encephalopathy ? Likely multifactorial, from acute hypoxia, GI bleed, possible UTI, uremic encephalopathy ? Neurochecks ? N/A stroke scale ? Aspiration precaution Keep n.p.o. Uremic encephalopathy Acute renal failure on chronic kidney disease ? Likely multifactorial ? From GI bleed, ? Liver cirrhosis, possible hepatorenal syndrome? Possible cardiorenal syndrome given severely diminished EF ? Nephrology consulted ? Receiving sodium bicarb drip as above ? IV diuresis due to fluid overload ? Possible need for dialysis Hyperkalemia, status post insulin, D10 Urinary tract infection ? Continue Zosyn ? Follow urine cultures ? Follow blood cultures History of Staph aureus bacteremia ? On IV cefazolin -Switch to Zosyn Atrial fibrillation, not on anticoagulation CAD, on Plavix, - Plavix currently on hold Cath in 2022 showed ?Conclusions 1. Critical in-stent restenosis of 2. SVG to diagonal artery prior stent. Status post successful revascularization with balloon angioplasty. Severe stenosis of SVG to diagonal artery proximal to prior stent. S/p successful revascularization with 1 stent.. 3. Patient has prior CABG. plan ? Serial EKGs consult once, telemetry monitoring neck ? The longer anticoagulation/antiplatelet therapy is held, the higher risk of adverse cardiovascular event, Certainly this is a difficult situation on the 1 hand she has a risk of coronary event as she her aspirin and Plavix are on hold, but on the other hand is a high risk of GI bleed for now as she is currently in for GI bleed will hold anticoagulation #Upper GI bleed #Acute blood loss anemia #Supratherapeutic INR #Liver cirrhosis? #Coronary disease status post CABG status post PCI in the past #History of systolic congestive heart failure #History of Staph aureus bacteremia #Hypotension #BERNADETTE on CKD #Hyperkalemia #Lactic acidosis most likely secondary to hypoperfusion Patient was examined multiple times throughout the morning and into the afternoon ? Early in the morning she was seen she was alert to person, to place, not to time, encephalopathic at times she would follow commands at other times she would be quite delayed in terms of responses no facial droop she is moving both upper lower extremities, spontaneously, is at bedside # at bedside tells me that she is not taking Eliquis at the [facility] she is on Plavix ? She is currently on room air, normotensive, is encephalopathic, she is having active black tarry bowel movements in the ICU ? Spoke to general surgery, INR and CBC is pending, EGD has been delayed ? INR has come back at greater than 2, will give 2 units unit of FFP, hemoglobin 6.9 will give 1 unit PRBC ? She was monitored thereafter, continues to have episodes of black tarry bowel movements, normotensive, she is alert, awake, complaining of abdominal pain, ? Concern for fluid overload BMP came back shows evidence of metabolic acidosis, BNP over 40,000, uremia, elevated creatinine, on examination she has evidence of 2+ pitting edema, still on room air, will give her 1 dose of Lasix Spoke to nephrology, concerns for uremia, uremic encephalopathy, worsening renal failure, with elevated BNP ? Will start her on sodium bicarb drip continue to diurese as needed, for fluid overload, ? Spoke to at bedside, discussed that currently her status is critical, prognosis is guarded, she has an upper GI bleed, requiring transfusion, she is developing fluid overload, acute renal failure, acute encephalopathy, will consult nephrology, she might need dialysis, discussed her CODE STATUS in detail she is a DO NOT RESUSCITATE, but is okay with intubation if needed to protect her airway ? Discussed with that it is a poor prognostic indicator that patient is developing acute fluid overload with evidence of acute renal failure, with her ongoing GI bleed, she has a high risk of morbidity and mortality, her status is critical, prognosis is guarded, she has a high risk of acute clinical deterioration, will have to monitor very closely, in the ICU ? She was monitored thereafter, she remains normotensive, remains on room air, patient had her EGD ? She received a 30 unit FFP, as INR was 1.7, platelet count 69, receiving 1 unit platelet, Exa?EGD showed severe duodenitis, contact bleeding, portal hypertensive gastropathy, small hiatal hernia, nonbleeding esophageal varices, clips were placed in her duodenum, 1 into the stomach, General surgery has placed her on clear liquids She was examined she remains encephalopathic, will keep her n.p.o. due to encephalopathy, risk of aspiration ? She was examined again, she is now on 2 to 3 L, on crackles on exam, continues to have worsening edema, developing acute respiratory failure, acute fluid overload, acute encephalopathy, is normotensive but maps are around 65, heart rates are within normal range, she is tachypneic, some nasal flaring, intercostal retractions, mild respiratory distress,, Bumex 1 mg IV push every 8 hours ? Bicarb drip is going at 50 cc an hour, add on Bumex 1 mg every 12 hours monitor very closely for fluid overload, Estes catheter in place, monitor mentation monitor respiratory status very closely ? Kept n.p.o., aspiration precautions, CT of the head, repeat CBC and INR 9 PM Attestations 2 Medical Necessity Statement*: Patient requires hospitalization, for acute blood loss anemia, acute upper GI bleed, anemia, thrombocytopenia, elevated INR, with acute respiratory failure, fluid overload, acute encephalopathy, acute renal failure, acute encephalopathy, Coding Level of Care Code Critical Care >/= 30 minutes Critical care time (in minutes): 45 The high probability of a clinically significant, sudden or life threatening deterioration, as referenced in this documentation, required my full and direct attention, intervention and personal management. The critical care time shown is in addition to time spent performing any reported separately billable procedures and includes the following: [x] Data and vital sign review and interpretation [x ] Patient assessment, examination and intervention [x] Medication orders and management [x] Patient/Family updates as able [x] Care Coordination and Documentation. Diagnoses Primary hypertension I10 Hypertension type: primary hypertension Acute on chronic diastolic congestive heart failure I50.33 Heart failure chronicity: acute on chronic Heart failure type: diastolic CAD (coronary artery disease) I25.10 Atrial fibrillation I48.91 Supratherapeutic INR R79.1 Abdominal pain R10.9 BERNADETTE (acute kidney injury) N17.9 Acute on chronic renal insufficiency N28.9; N18.9 Stage 3b chronic kidney disease N18.32 Chronic kidney disease stage 3 subtype: stage 3b (GFR 30-44) Urinary tract infection N30.00 Hematuria presence: without hematuria Urinary tract infection type: acute cystitis Staphylococcus aureus bacteremia R78.81; B95.61 BASIA (obstructive sleep apnea) G47.33 GI bleed K92.2 Acute encephalopathy G93.40 Fluid overload E87.70 Acute respiratory failure J96.00 Acute renal failure N17.9 Metabolic acidosis E87.20 Thrombocytopenia D69.6 Uremia N19 Hyperbilirubinemia E80.6
[2023-11-20 17:55] LABS: Glucose Point of Care 85 mg/dL (70-110)
[2023-11-20] MEDS: bumetanide 0.25 mg/mL SDV 4 mL 1 MG IVP (18:19)
[2023-11-20] MEDS: octreotide 500 MCG in sodium chloride 0.9% (100 ml) 100 ML 10.1 MCG IV (18:33)
[2023-11-20 18:39] LABS: Blood Gas Allen Test Pos; Blood Gas Operator Identificat CAK; Blood Gas Sample Type Arterial; Oxygen Device NC
[2023-11-20 18:46] LABS: Blood Gas Sample Site Brachial, left
[2023-11-20 18:47] LABS: ABG PCO2 38.5 mmHg (35-45); ABG PH Result 7.34 (7.35-7.45); Base Excess ABG -4.6 mmol/L (-2.0-2.0); HCO3 ABG 20.8 mmol/L (22-26)
[2023-11-20 18:53] LABS: PO2 ABG 66.9 mmHg (80.0-100.0)
[2023-11-20 19:59] LABS: Basophils % 0.2 %; Hematocrit 23.6 % (36-47); Lymphocytes # 0.5 10^3/uL (0.8-4.8); Lymphocytes % 4.7 %; Mean Corpuscular HGB Conc 33.9 g/dL (30-55); Mean Corpuscular Hemoglobin 32.1 pg (27-33); Mean Corpuscular Volume 94.8 fl (85-98); Mean Platelet Volume 12.3 fL (7.4-10.4); Monocytes # 0.5 10^3/uL (0.2-0.9); Monocytes % 4.9 %; Neutrophils # 8.52 10^3/uL (1.8-7.7); Neutrophils % 89.3 %; Nucleated Red Blood Cells % 0.2 %; Platelet Count 109 10^3/cmm (157-399); Red Blood Count 2.49 10^6/uL (3.85-5.65); Red Cell Distribution Width 21.9 % (12.1-15.1); White Blood Count 9.55 10^3/uL (3.29-11.43)
[2023-11-20 20:14] LABS: Erythrocyte Sedimentation Rate 1 mm/hr (0-15)
--- NOTE | 2023-11-20 20:18 | ECG_ITS ---
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 Measurements Intervals [place] Rate: 73 P: 0 SC: 0 QRS: -72 QRSD: 172 T: 102 QT: 490 QTc: 544 Interpretive Statements ELECTRONIC VENTRICULAR PACEMAKER Compared to ECG 10/29/2023 23:00:54 No significant changes Electronically Signed On 11-21-2023 9:51:52 CDT by Kel Molina M.D. [id number]
[2023-11-20 20:27] LABS: C Reactive Protein 19.2 mg/L (0.0-4.9)
[2023-11-20 20:35] LABS: Procalcitonin 0.47 ng/mL (0-0.5)
[2023-11-20 20:37] LABS: Troponin(5th) Baseline 203 ng/L (0-10)
[2023-11-20 21:17] LABS: Free T4 Free Thyroxine 0.76 ng/dL (0.82-1.77); T3 Free 1.9 PG/ML (2.0-4.4)
[2023-11-20 22:22] LABS: Calcium 8.8 mg/dL (8.5-10.5); Carbon Dioxide 17 mmol/L (22-29); Chloride 91 mmol/L (98-107); Creatinine Clr Calc Pharmacy 11.0014; Glucose 78 mg/dL (65-115); Osmolality Calculated 307 mOsm/kg (285-295); Sodium 134 mmol/L (136-145)
[2023-11-20 22:23] LABS: Anion Gap 30.9 (5-19); Potassium 4.9 mmol/L (3.5-5.1)
[2023-11-20 22:26] LABS: Blood Urea Nitrogen 98 mg/dL (8-23)
[2023-11-20 22:28] LABS: Troponin 5 2HR 228.8 ng/L (0-10); Troponin 5 2HR Delta 25.8 ABS# (0-10)
[2023-11-20 23:04] LABS: LAB Peripheral Smear Sent for Review
[2023-11-21] VITALS (63 sets, daily range): BP systolic 101–152; BP diastolic 34–119; PULSE 69–95; RESP 13–29; TEMP 35.8–36.7; O2SAT 86–100; BMI 29.1
--- NOTE | 2023-11-21 00:10 | ECG_ITS ---
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 Measurements Intervals [place] Rate: 71 P: 0 MI: 0 QRS: -75 QRSD: 164 T: 101 QT: 486 QTc: 529 Interpretive Statements ELECTRONIC VENTRICULAR PACEMAKER Compared to ECG 11/20/2023 20:18:36 No significant changes Electronically Signed On 11-21-2023 9:51:45 CDT by Kel Molina M.D. [id number]
[2023-11-21] MEDS: sucralfate 1 gm/10 mL Oral Liq UDC PO ×2 (01:18→08:31)
[2023-11-21] MEDS: bumetanide 0.25 mg/mL SDV 4 mL 1 MG IVP (01:19)
--- NOTE | 2023-11-21 02:54 | PC.NURSE ---
Blood transfusion: upon arrival to shift, patients PRBCs were transfused. TAR updated to reflect infusion.
--- NOTE | 2023-11-21 02:57 | PC.NURSE ---
Sodium Bicarb rate: Patient's sodium bicarb was running at 50mL/hr, ordered dose was for 120mL/hr. Dr. Forman was contacted and gave telephone orders to continue running at 50mL/hr.
[2023-11-21] MEDS: octreotide 500 MCG in sodium chloride 0.9% (100 ml) 100 ML 10.1 MCG IV (03:25)
[2023-11-21] MEDS: piperacillin-tazobactam 3.375 GM in sodium chloride 0.9% (plus) 50 ML IV ×2 (03:27→21:22)
[2023-11-21 03:52] LABS: Basophils % 0.2 %; Hematocrit 22.1 % (36-47); Lymphocytes # 0.6 10^3/uL (0.8-4.8); Lymphocytes % 6.1 %; Mean Corpuscular Hemoglobin 31.6 pg (27-33); Mean Corpuscular Volume 95.7 fl (85-98); Mean Platelet Volume 10.5 fL (7.4-10.4); Monocytes # 0.5 10^3/uL (0.2-0.9); Monocytes % 5.4 %; Neutrophils # 8.68 10^3/uL (1.8-7.7); Neutrophils % 87.6 %; Nucleated Red Blood Cells % 0 %; Platelet Count 109 10^3/cmm (157-399); Red Blood Count 2.31 10^6/uL (3.85-5.65); Red Cell Distribution Width 22.6 % (12.1-15.1)
--- NOTE | 2023-11-21 04:00 | XRR_ITS ---
PROCEDURE INFORMATION: Exam: XR Chest Exam date and time: 11/21/2023 4:54 AM Age: 73 years old Clinical indication: Shortness of breath; Prior surgery; Surgery date: 6+ months; Surgery type: Aortic valve. Pacer. Coronary stents. ; Additional info: Fluid overlooad TECHNIQUE: Imaging protocol: Radiologic exam of the chest. Views: 1 view. COMPARISON: CR (CHEST, ) 11/20/2023 12:54 AM FINDINGS: Tubes, catheters and devices: Multi lead implanted cardiac device projects over the left chest. Right upper extremity PICC terminates over the SVC. Lungs: Probable left basilar airspace opacity, unchanged. Pleural spaces: No large pleural effusion. No distinct pneumothorax. Heart/Mediastinum: Cardiomediastinal silhouette is midline and stable in size. Vasculature: Mild calcific disease of the aorta. Bones/joints: Postsurgical changes of prior median sternotomy. Osseous structures are unchanged. XR/XR chest 1V portable [id number] IMPRESSION: Probable left basilar airspace opacity, unchanged.
[2023-11-21 04:04] LABS: INR 1.37 (0.8-1.2)
[2023-11-21 04:24] LABS: Parathyroid Hormone 85.6 pg/mL (15-65)
[2023-11-21 04:31] LABS: Troponin 5 6HR 239.5 ng/L (0-10); Troponin 5 6HR Delta 36.5 ng/L (0-12)
[2023-11-21 04:34] LABS: 25 Hydroxy Vitamin D 43 ng/mL (30-100); Alanine Aminotransferase < 5 U/L (0-33); Albumin Level 3.7 g/dL (3.5-5.2); Alkaline Phosphatase 191 U/L (35-105); Aspartate Amino Transferase 47 U/L (0-32); Calcium 9.1 mg/dL (8.5-10.5); Carbon Dioxide 19 mmol/L (22-29); Chloride 94 mmol/L (98-107); Creatinine Clr Calc Pharmacy 10.3542; Globulin 2.8 g/dL (1.3-4.6); Glucose 71 mg/dL (65-115); Osmolality Calculated 311 mOsm/kg (285-295); Sodium 136 mmol/L (136-145); Total Bilirubin 1.6 mg/dL (0.15-1.2); Total Protein 6.5 g/dL (6.6-8.7)
[2023-11-21 04:44] LABS: Anion Gap 27.6 (5-19); Potassium 4.6 mmol/L (3.5-5.1)
[2023-11-21 04:45] LABS: Blood Urea Nitrogen 99 mg/dL (8-23)
[2023-11-21 04:55] LABS: NT Pro B Type Natriuretic Pept 42928 pg/mL (0-125)
[2023-11-21] MEDS: pantoprazole 40 mg SDV IVP ×2 (05:29→21:23)
--- NOTE | 2023-11-21 07:06 | PC.PHAR ---
PT IS FROM [facility]
--- NOTE | 2023-11-21 07:27 | P.PN_ITS ---
Subjective 2 Subjective: weak, lethargic, swollen. dec bleeding Medications: Reviewed: Yes Medication Review Details: Current Medications Bumetanide (Bumetanide 0.25 Mg/Ml Sdv 4 Ml) 1 mg IVP Q8H JEREMY Last Admin: 11/21/23 01:19 Dose: 1 mg Piperacillin Sod/Tazobactam (Sod 3.375 gm/ Sodium Chloride) 50 mls @ 12.5 mls/hr IV Q12H JEREMY Last Admin: 11/21/23 03:27 Dose: 12.5 mls/hr Dextrose (D10w) 125 mls @ 750 mls/hr IV PRN PRN PRN Reason: HYPOGLYCEMIA Last Admin: 11/20/23 11:41 Dose: 750 mls/hr Sodium Bicarbonate 50 meq/ (Sodium Chloride) 1,050 mls @ 50 mls/hr IV .Q21H JEREMY Last Infusion: 11/21/23 00:20 Dose: 50 mls/hr Octreotide Acetate 500 mcg/ (Sodium Chloride) 101 mls @ 10.1 mls/hr IV .Q10H JEREMY Last Admin: 11/21/23 03:25 Dose: 50 mcg/hr, 10.1 mls/hr Ondansetron HCl (Ondansetron 2 Mg/Ml Sdv 2 Ml) 4 mg IVP Q8H PRN PRN Reason: vomiting, or N/V if npo Pantoprazole Sodium (Pantoprazole 40 Mg Sdv) 40 mg IVP Q12H JEREMY Last Admin: 11/21/23 05:29 Dose: 40 mg Sodium Chloride (Sodium Chloride 0.9% 100 Ml Bag) 50 ml IV PRN PRN PRN Reason: Blood transfusion prime and flush Stop: 11/21/23 09:03 Sucralfate (Sucralfate 1 Gm/10 Ml Oral Liq Udc) 1 gm PO Q6H JEREMY Last Admin: 11/21/23 01:18 Dose: 1 gm Vitals/I&O/Wt Last Vital Signs Temp 97.9 F 11/21/23 05:48 Pulse 74 11/21/23 06:00 Resp 17 11/21/23 04:15 BP 119/60 11/21/23 04:15 Pulse Ox 100 11/21/23 04:15 O2 Del Method Nasal Cannula 11/21/23 03:30 O2 Flow Rate 4 11/21/23 03:30 11/20/23 11/21/23 11/21/23 22:59 06:59 14:59 Intake Total 555 / 1441 782.667 / 2223.667 Output Total 150 / 150 200 / 350 Balance 405 / 1291 582.667 / 1873.667 Weight last 48 hrs Weight 79.435 kg Weight 76.566 kg Weight 76.476 kg Physical Exam 2 Narrative: Elderly ill-appearing lady in bed hemodynamically stable. HEENT normocephalic/atraumatic. Neck is supple Lungs dull bases. Heart irregular with heart rate control. Abdomen soft positive bowel sounds. Extremities bilateral 1-2+ leg edema. Neuro lethargic however awakens follows simple commands . Data 11/21/23 03:21 11/21/23 03:21 Micro: Microbiology 11/20/23 18:45 Occult Blood (FIT) - Final Stool - Stool Aspirate 11/19/23 19:00 Blood Culture - Preliminary Blood NEGATIVE TO DATE 11/19/23 18:34 Blood Culture - Preliminary Blood NEGATIVE TO DATE A&P Assessment and plan (1) Acute on chronic renal insufficiency: 73-year-old lady history of heart failure reduced EF, CABG, PCI, question pulmonary embolism, hypertension, obstructive sleep apnea, A-fib, peripheral arterial disease, atrophic right kidney, liver cirrhosis, recent Staph aureus bacteremia 1. Patient here with GI bleed. Status post endoscopy yesterday with nonbleeding varices and portal hypertension. 2. Acute kidney injury in this patient baseline creatinine was normal 1 year ago was 0.61 up to 1.1 mg/dL September 2023. Creatinine of 2.1 mg/dL 3 weeks ago when she left the hospital and most of October. Now with a creatinine of 5 mg/dL. Imaging without hydronephrosis however she does have an atrophic right kidney. Urinalysis reviewed 1+ protein she does have 1+ ketones 3+ blood, leukocytes 2+ 25-40 white cells question of UTI on antibiotics. Patient has CT scan showing un changes atrophy of the right kidney with diffuse cortical thinning some simple cyst no hydronephrosis Differential diagnosis in this patient is: a ATN, risk would be being on diuretics,not eating well, having a GI bleed, and likely having some hypotension the patient with heart failure reduced EF and having an atrophic right kidney at baseline b infection related GN though does not have significant hematuria - C. interstitial nephritis from antibiotics d/ less likely abdomen Alysis is AST and ALT are very low. e. Less likely cardiorenal syndrome though can be contributing. Also note patient received contrast was already in acute kidney injury. Patient is at high risk for progression of acute kidney injury and is oliguric. -Will stop fluids and Bumex. 3. Increased anion gap metabolic acidosis somewhat from lactate. Repeat serum ketones negative. Likely that she took any toxins while in the rehab center. Renal failure can also cause an increased anion gap metabolic acidosis. 4. Hyperkalemia likely from acute kidney injury-has improved.. 5. Anemia from GI bleed and also from chronic disease. Negative SPEP. Can check B12 and folate level. Consider giving more blood. 6. Hyponatremia from acute kidney injury with low urine sodium. Serum sodium has improved. 7. Elevated TSH consider giving levothyroxine as per medicine. 8. Elevated BNP patient with heart failure reduced EF-monitor volume status and oxygenation. Will give diuretics. Will monitor patient closely. As patient may need dialysis soon. Patient seen and examined with the patient's nurse discussed the case in detail with patient's . He gives consent to telehealth visit and to hemodialysis if necessary. Would only want dialysis temporarily. The patient was seen and examined using A/V equipment. Plan See above. Attestations 2 Medical Necessity Statement*: Acute kidney injury altered mental status GI bleed. Time Spent in Patient Care: 16 - 35 minutes (>than 50% of time sp ent in counselling and/or direct pt care on unit) . Coding Level of Care Code Acute Code for Chg Fwd Diagnoses Acute on chronic renal insufficiency N28.9; N18.9
[2023-11-21 08:20] LABS: Glucose Point of Care 79 mg/dL (70-110)
[2023-11-21] MEDS: bumetanide 25 MG in empty flexible container 1 EACH 4 MG IV (08:31)
[2023-11-21] MEDS: sodium bicarbonate 50 MEQ in sodium chloride 0.45% 1,000 ML IV (09:57)
[2023-11-21] MEDS: levothyroxine 25 mcg Tablet PO (09:57)
--- NOTE | 2023-11-21 10:03 | PC.SOCIAL ---
IMM Update pg 2 of IMM updated and reviewed w patients . Copy left @ bedside and copy dated, initialed and placed in chart.
--- NOTE | 2023-11-21 12:44 | USCV_ITS ---
Essie Alejandre Age: 73 Gender: F : 1950 Exam Date: 11/21/2023 14:52 Ordering Phys: Ish Loya MD Technologist: CT [place] [facility] [place] Indication: ef BP: 135 / 85 HR: Rhythm: Sinus Technical Quality: MEASUREMENTS (Male / Female) Normal Values 2D ECHO LVOT Diameter 2.0 cm LV Ejection Fraction MOD 4C 32.4 % LV Ejection Fraction MOD 2C 31.4 % LV Ejection Fraction 2C AL 28.7 % LA Diameter 5.4 cm RA Systolic Volume 4C AL 75.0 ml RA Systolic Volume 4C MOD 75.3 ml LA Sys Volume AL 125.8 cm cubed LA Sys Volume Index AL 64.2 cm cubed/m squared Aorta at Sinotubular Diameter 1.5 cm IVC Diameter 2.5 cm M-MODE LA Ao Ratio MM 2.7 AV Cusp Separation MM 1.6 cm FINDINGS Left Ventricle Diffuse hypokinesia of the left ventricular ejection fraction of 31%. Right Ventricle Normal right ventricular systolic function. Defibrillator wire in the right Right Atrium Mildly increased right atrial size. Pacemaker/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 wire in the right atrium Left Atrium Moderately increased left atrial size. Mitral Valve Moderate mitral valve regurgitation. Aortic Valve Thickened aortic valve. Tricuspid Valve Danj-qe-qztimvsj tricuspid valve regurgitation. Pulmonic Valve No gross abnormalities noted Pericardium No pericardial effusion. Aorta Normal aortic annulus size. IVC Normal inferior vena cava. CONCLUSIONS Diffuse hypokinesia of the left ventricular ejection fraction of 31%. Normal RV size and ejection fraction. Mildly increased right atrial size. Moderately increased left atrial size. Defibrillator /pacemaker wire in the right ventricle. [id number] tricuspid valve regurgitation. Moderate mitral valve regurgitation. There is no pericardial effusion. Compared to the study from 10/21/2023 there is some improvement in the LV ejection fraction from 20% to 31% Dr Ghulam Allen MD [facility] (Electronically Signed) Final Date: 21 November 2023 21:57 S
[2023-11-21 13:56] LABS: Basophils % 0.4 %; Eosinophils % 0.2 %; Hematocrit 27.5 % (36-47); Lymphocytes # 0.7 10^3/uL (0.8-4.8); Mean Corpuscular HGB Conc 32.7 g/dL (30-55); Mean Corpuscular Hemoglobin 31.9 pg (27-33); Mean Corpuscular Volume 97.5 fl (85-98); Mean Platelet Volume 10.6 fL (7.4-10.4); Monocytes # 0.6 10^3/uL (0.2-0.9); Monocytes % 5.6 %; Neutrophils # 9.43 10^3/uL (1.8-7.7); Neutrophils % 86.8 %; Nucleated Red Blood Cells % 0 %; Platelet Count 105 10^3/cmm (157-399); Red Blood Count 2.82 10^6/uL (3.85-5.65); Red Cell Distribution Width 21.1 % (12.1-15.1); White Blood Count 10.86 10^3/uL (3.29-11.43)
[2023-11-21 14:11] LABS: INR 1.38 (0.8-1.2)
[2023-11-21 14:13] LABS: Ammonia 49 umol/L (11-51)
[2023-11-21 14:16] LABS: Alanine Aminotransferase < 5 U/L (0-33); Albumin Level 3.6 g/dL (3.5-5.2); Alkaline Phosphatase 190 U/L (35-105); Carbon Dioxide 15 mmol/L (22-29); Chloride 93 mmol/L (98-107); Creatinine Clr Calc Pharmacy 11.1961; Globulin 2.8 g/dL (1.3-4.6); Glucose 77 mg/dL (65-115); Osmolality Calculated 311 mOsm/kg (285-295); Sodium 135 mmol/L (136-145); Total Bilirubin 1.9 mg/dL (0.15-1.2); Total Protein 6.4 g/dL (6.6-8.7)
[2023-11-21 14:38] LABS: Anion Gap 31.8 (5-19); Aspartate Amino Transferase 49 U/L (0-32); Blood Urea Nitrogen 104 mg/dL (8-23); Potassium 4.8 mmol/L (3.5-5.1)
--- NOTE | 2023-11-21 15:01 | PC.SLP ---
RN WELLNESS unable to see patient. Patient undergoing testing. RN WELLNESS will attempt to follow-up at a later time and/or date.
--- NOTE | 2023-11-21 16:11 | P.PCN_ITS ---
Procedure Note: Procedure: Preoperative diagnosis: Acute renal failure requiring emergent dialysis Postoperative diagnosis: Same Procedure: Placement of Mahurkar catheter in the right femoral vein Surgeon: Dr. Fran Amaya, DO Anesthesia: Local Description of procedure: The patient's right groin was prepped and draped in a sterile manner. 5 mL of 1% lidocaine was infiltrated at the site of planned entry, an introducer needle was used to access the right femoral vein. Guidewire was passed through the introducer needle and the introducer needle was removed. Serial dilators were passed over the guidewire after the skin incision was extended using 11 blade and Mahurkar catheter was then passed over the karin dewire and the guidewire was removed. The catheter was sutured to the skin using 2-0 Ethilon suture. Sterile dressings were applied. Coding Level of Care Code Acute Code for Chg Fwd
--- NOTE | 2023-11-21 16:12 | P.PN_ITS ---
Subjective 2 Subjective: Is seen and examined. No further bloody bowel movements. No significant abdominal pain Vitals/I&O/Wt Last Vital Signs Temp 97.4 F L 11/24/23 08:06 Pulse 80 11/24/23 08:06 Resp 16 11/24/23 08:06 BP 141/60 11/24/23 08:06 Pulse Ox 96 11/24/23 08:06 O2 Del Method Nasal Cannula 11/24/23 08:06 O2 Flow Rate 2 11/23/23 20:00 11/23/23 11/24/23 11/24/23 22:59 06:59 14:59 Intake Total 125 / 675 50 / 725 Output Total 50 / 3550 Balance 125 / -2825 0 / -2825 Weight last 48 hrs Weight 160 lb Weight 165 lb 9.074 oz Weight 168 lb 6 oz Physical Exam 2 Narrative: General: No acute distress, not answering any questions Abdomen: Soft, nontender, nondistended Data 11/24/23 05:50 11/24/23 05:50 A&P Assessment and plan (1) Gastritis: (2) Duodenitis: (3) Esophageal varices: (4) Hiatal hernia: (5) Acute on chronic renal insufficiency: Plan Continue pantoprazole and sucralfate Nephrology requested hemodialysis catheter placement. The risks and benefits of the procedure, including but not limited to, bleeding, infection, infection requiring catheter removal antibiotic therapy and repeat surgery, damage to surrounding structures, scar, numbness, pain, were explained to the patient's . He is understanding of the risks and wishes to proceed. Attestations 2 Medical Necessity Statement*: Per primary Coding Level of Care Code 42045 Diagnoses Gastritis K29.70 Duodenitis K29.80 Esophageal varices I85.00 Hiatal hernia K44.9 Acute on chronic renal insufficiency N28.9; N18.9
[2023-11-21 16:25] LABS: Hepatitis B Core AB, Total Non-Reactive (Nonreactive); Hepatitis B Surface AB 239.8 (11.5-1000); Hepatitis B Surface Antigen Non-Reactive (Nonreactive); Hepatitis C Virus Antibody Non-Reactive (Nonreactive)
--- NOTE | 2023-11-21 16:35 | PM.PN ---
Subjective Subjective: - Patient was examined several times throughout the morning into the afternoon with a family meeting in the afternoon -Early in the morning she was seen she is alert to person, not to place, not to time, she does not follow commands is grossly encephalopathic, normotensive, but blood pressures are soft, she is on 4 L, urine output has been lackluster with Bumex ? She was started on Bumex drip, monitored on the Bumex drip, continues to be on 4 L, continues to have generalized anasarca, fluid overload, crackles on exam ? I met with patient's daughter earlier on that morning, discussed patient's GI bleed, hemoglobin remained stable she has not had any recurrent bloody or black stools, blood pressures are a bit soft, the issue now is that she has developed significant fluid overload with acute renal failure with a EF of 20 to 25%, and developing acute respiratory failure, if she continues to have lackluster urine output, we we will likely need dialysis to help with her anasarca, fluid overload, her acute acute uremic encephalopathy and her acute respiratory failure, awaiting patient's for a family meeting ? Again examined early this afternoon, she appears more encephalopathic, in mild respiratory distress tachypneic, tachycardic, nasal flaring, intercostal retractions, diffuse crackles on exam, suprasternal retractions, intercostal retractions, ? Repeat CBC in [facility] ordered ? Hemoglobin stable at 9, platelet count 105, INR 1.38 ? Her electrolytes show metabolic acidosis bicarb at 15, uremia BUN at 104 creatinine 4.8 As she was reexamined early in the afternoon, patient's is at bedside ? Currently patient is in mild respiratory distress continues to have intercostal retraction suprasternal retractions nasal flaring, tachypnea, tachycardia, diffuse crackles on exam, continues to have gross encephalopathy, alert to person, not to place, not to time ? Discussed with patient's daughter and ? Discussed patient's GI bleed as above, hemoglobin has been stabilized, INR is stabilized I think the bleeding is likely stabilized but blood pressures remain soft she has not had any bloody or black stools, ? Discussed her multiorgan failure ? She has underlying CHF with a EF of 20 to 25% ?Has liver cirrhosis ? Has chronic kidney disease ? Now she has developed fluid overload with worsening of her kidney function, with acute renal failure, with acute respiratory failure, with acute uremic encephalopathy, anasarca, fluid overload ? Her urine output with the Bumex drip has been lackluster My worry is is that given her current mentation and her respiratory status, I am worried about acute clinical deterioration, would recommend either proceeding with comfort care easing her pain and ease her suffering allowing her to pass with comfortably, continuing a trial of Bumex drip and giving her time but this would carry the risk of acute clinical deterioration in urgent intervention such as urgent dialysis catheter placement and urgent dialysis which carries significant morbidity and mortality I spoke to nephrology about the case, they recommended going ahead and proceeding with dialysis catheter placement ? The other option I discussed is going ahead and proceeding with dialysis, discussed the risk and benefits of dialysis, discussed the risk and benefits of placing a dialysis catheter she is already had a history of catheter related infection ? After discussing with him the risk and benefits of all options, shared decision making, all questions answered agreed to proceed with temporary dialysis catheter placement, and temporary dialysis ? Spoke to general surgery, plan on temporary dialysis catheter placement this afternoon with dialysis this afternoon Vitals/I&O/Wt Last Vital Signs Temp 97.9 F 11/21/23 10:29 Pulse 79 11/21/23 15:00 Resp 19 H 11/21/23 15:00 BP 135/85 11/21/23 15:00 Pulse Ox 99 11/21/23 15:00 O2 Del Method Nasal Cannula 11/21/23 08:33 O2 Flow Rate 4 11/21/23 08:33 11/21/23 11/21/23 11/21/23 06:59 14:59 22:59 Intake Total 782.667 / 2223.667 468.333 / 468.333 Output Total 200 / 350 Balance 582.667 / 1873.667 468.333 / 468.333 Weight last 48 hrs Weight 79.435 kg Weight 76.566 kg Weight 76.476 kg Physical Exam Const: COMMON NORMALS: no acute distress EXAM LIMITATIONS: altered mental status ORIENTATION/CONSCIOUSNESS: Yes confused Eye: COMMON NORMALS: Equal, round and reactive pupils present PUPIL: Yes Equal, round and reactive pupils present Chest: OTHER: Diffuse anasarca Resp: COMMON NORMALS: normal respiratory effort, No retractions and No use of accessory muscles AUSCULTATION: crackles OTHER: Has now developed tachypnea, tachycardia, diffuse crackles intercostal retractions, suprasternal retractions, nasal flaring, mild respiratory distress Cardio: COMMON NORMALS: S1 normal heart sound present and S2 normal heart sound present HEART SOUNDS: S1 normal heart sound present and S2 normal heart sound present GI: OTHER: Abdomen soft, slightly distended, no guarding, no rebound, rigidity, scattered bowel sounds, has anasarca Data 11/21/23 13:42 11/21/23 13:42 Micro: Microbiology 11/19/23 19:00 Urine Culture - Final Urine,Clean Catch 11/20/23 14:40 Urine Culture - Preliminary Urine,Clean Catch 11/20/23 18:45 Occult Blood (FIT) - Final Stool - Stool Aspirate 11/19/23 19:00 Blood Culture - Preliminary Blood NEGATIVE TO DATE 11/19/23 18:34 Blood Culture - Preliminary Blood NEGATIVE TO DATE A&P Assessment and plan (1) HTN (hypertension): Hold blood pressure medications Qualifiers: Hypertension type: primary hypertension Qualified Code(s): I10 - Essential (primary) hypertension (2) Congestive heart failure: Qualifiers: Heart failure chronicity: acute on chronic Heart failure type: diastolic Qualified Code(s): I50.33 - Acute on chronic diastolic (congestive) heart failure (3) CAD (coronary artery disease): (4) Atrial fibrillation: (5) Supratherapeutic INR: (6) Abdominal pain: (7) BERNADETTE (acute kidney injury): (8) Acute on chronic renal insufficiency: (9) CKD (chronic kidney disease) stage 3, GFR 30-59 ml/min: Qualifiers: Chronic kidney disease stage 3 subtype: stage 3b (GFR 30-44) Qualified Code(s): N18.32 - Chronic kidney disease, stage 3b (10) Urinary tract infection: Qualifiers: Hematuria presence: without hematuria Urinary tract infection type: acute cystitis Qualified Code(s): N30.00 - Acute cystitis without hematuria (11) Staphylococcus aureus bacteremia: (12) BASIA (obstructive sleep apnea): (13) GI bleed: (14) Acute encephalopathy: (15) Fluid overload: (16) Acute respiratory failure: (17) Acute renal failure: (18) Metabolic acidosis: (19) Thrombocytopenia: (20) Uremia: (21) Hyperbilirubinemia: (22) Acute respiratory distress: Plan Plan Acute upper GI bleed ? Status post 2 units of blood, 3 units FFP, 1 unit platelet ? Status post EGD, findings of duodenitis with contact bleeding, clips placed into the duodenum, portal hypertensive gastropathy, small hiatal hernia, nonbleeding esophageal varices ? Plan ? Keep n.p.o. ? Protonix 40 mg IV twice daily ? Carafate ? Monitor hemoglobin, INR, BMP closely -Transfuse for hemoglobin less than 6 ? Will consider FFP if INR is above 1.5-2 ? Monitor for bloody or black stools -monitor hemodynamics closely Metabolic acidosis, increased anion gap ? Secondary to acute blood loss anemia, potentially starvation ketosis, liver cirrhosis ? Plan ?continue sodium bicarb drip at 50 cc an emilee ? Concerns for fluid overload Liver cirrhosis CT scan shows liver having a cirrhotic morphology, small to moderate volume ascites, with anasarca ? Etiology hepatitis panel within normal limits, had a cholecystectomy in August of this year, cannot do an MRCP given her pacemaker ? During her last hospitalization when I took care of her she also developed hyperbilirubinemia, with transaminitis, there was discussion with [facility], they recommended for patient to follow-up with hepatology as outpatient. In review of her records show that when she has had hospitalizations for CHF exacerbation she has had hyperbilirubinemia at that time also ? Thus I suspect her etiology of liver cirrhosis being cardiac cirrhosis, from severe heart failure ? With hyperbilirubinemia ? With thrombocytopenia ? With elevated INR ? Supratherapeutic INR ? Acute renal failure ? Hyperbilirubinemia ? Monitor closely ? Plan Thrombocytopenia ? She had thrombocytopenia during her last hospitalization secondary to Protonix ? Currently on Protonix for her GI bleed will continue monitor platelet count closely Acute hypoxic respiratory failure, 4 L ? Secondary to acute fluid overload, blood products ? History of systolic CHF, last echocardiogram October 21, 2023 showed a EF of 20% with severe diffuse hypokinesia of the left ventricle ? Plan ? Monitor respiratory status closely -Lackluster response to Bumex, Bumex drip -Monitor respiratory status closely will consider BiPAP based on clinical progress ? Monitor creatinine, monitor potassium Acute systolic CHF exacerbation ? As above Acute encephalopathy ? Likely multifactorial, from acute hypoxia, GI bleed, possible UTI, uremic encephalopathy ? Neurochecks ? N/A stroke scale ? Aspiration precaution Keep n.p.o. Uremic encephalopathy Acute renal failure on chronic kidney disease ? Likely multifactorial ? From GI bleed, ? Liver cirrhosis, possible hepatorenal syndrome? Possible cardiorenal syndrome given severely diminished EF ? Nephrology consulted ? Receiving sodium bicarb drip as above ? IV diuresis due to fluid overload ? Plans on dialysis today Hyperkalemia, status post insulin, D10 Urinary tract infection ? Continue Zosyn ? Follow urine cultures ? Follow blood cultures History of Staph aureus bacteremia ? On IV cefazolin -Switch to Zosyn Atrial fibrillation, not on anticoagulation CAD, on Plavix, - Plavix currently on hold Cath in 2022 showed ?Conclusions 1. Critical in-stent restenosis of 2. SVG to diagonal artery prior stent. Status post successful revascularization with balloon angioplasty. Severe stenosis of SVG to diagonal artery proximal to prior stent. S/p successful revascularization with 1 stent.. 3. Patient has prior CABG. plan ? Serial EKGs consult once, telemetry monitoring neck ? The longer anticoagulation/antiplatelet therapy is held, the higher risk of adverse cardiovascular event, Certainly this is a difficult situation on the 1 hand she has a risk of coronary event as she her aspirin and Plavix are on hold, but on the other hand is a high risk of GI bleed for now as she is currently in for GI bleed will hold anticoagulation - Patient was examined several times throughout the morning into the afternoon with a family meeting in the afternoon -Early in the morning she was seen she is alert to person, not to place, not to time, she does not follow commands is grossly encephalopathic, normotensive, but blood pressures are soft, she is on 4 L, urine output has been lackluster with Bumex ? She was started on Bumex drip, monitored on the Bumex drip, continues to be on 4 L, continues to have generalized anasarca, fluid overload, crackles on exam ? I met with patient's daughter earlier on that morning, discussed patient's GI bleed, hemoglobin remained stable she has not had any recurrent bloody or black stools, blood pressures are a bit soft, the issue now is that she has developed significant fluid overload with acute renal failure with a EF of 20 to 25%, and developing acute respiratory failure, if she continues to have lackluster urine output, we we will likely need dialysis to help with her anasarca, fluid overload, her acute acute uremic encephalopathy and her acute respiratory failure, awaiting patient's for a family meeting ? Again examined early this afternoon, she appears more encephalopathic, in mild respiratory distress tachypneic, tachycardic, nasal flaring, intercostal retractions, diffuse crackles on exam, suprasternal retractions, intercostal retractions, ? Repeat CBC in [facility] ordered ? Hemoglobin stable at 9, platelet count 105, INR 1.38 ? Her electrolytes show metabolic acidosis bicarb at 15, uremia BUN at 104 creatinine 4.8 As she was reexamined early in the afternoon, patient's is at bedside ? Currently patient is in mild respiratory distress continues to have intercostal retraction suprasternal retractions nasal flaring, tachypnea, tachycardia, diffuse crackles on exam, continues to have gross encephalopathy, alert to person, not to place, not to time ? Discussed with patient's daughter and ? Discussed patient's GI bleed as above, hemoglobin has been stabilized, INR is stabilized I think the bleeding is likely stabilized but blood pressures remain soft she has not had any bloody or black stools, ? Discussed her multiorgan failure ? She has underlying CHF with a EF of 20 to 25% ?Has liver cirrhosis ? Has chronic kidney disease ? Now she has developed fluid overload with worsening of her kidney function, with acute renal failure, with acute respiratory failure, with acute uremic encephalopathy, anasarca, fluid overload ? Her urine output with the Bumex drip has been lackluster My worry is is that given her current mentation and her respiratory status, I am worried about acute clinical deterioration, would recommend either proceeding with comfort care easing her pain and ease her suffering allowing her to pass with comfortably, continuing a trial of Bumex drip and giving her time but this would carry the risk of acute clinical deterioration in urgent intervention such as urgent dialysis catheter placement and urgent dialysis which carries significant morbidity and mortality I spoke to nephrology about the case, they recommended going ahead and proceeding with dialysis catheter placement ? The other option I discussed is going ahead and proceeding with dialysis, discussed the risk and benefits of dialysis, discussed the risk and benefits of placing a dialysis catheter she is already had a history of catheter related infection ? After discussing with him the risk and benefits of all options, shared decision making, all questions answered agreed to proceed with temporary dialysis catheter placement, and temporary dialysis ? Spoke to general surgery, plan on temporary dialysis catheter placement this afternoon with dialysis this afternoon ? NSTEMI, elevated troponins, cardiac echo ordered Attestations Medical Necessity Statement*: Patient requires hospitalization for acute respiratory failure, acute encephalopathy, anasarca, fluid overload, uremic encephalopathy, acute renal failure, GI bleed, NSTEMI Coding Level of Care Code Critical Care >/= 30 minutes Critical care time (in minutes): 45 The high probability of a clinically significant, sudden or life threatening deterioration, as referenced in this documentation, required my full and direct attention, intervention and personal management. The critical care time shown is in addition to time spent performing any reported separately billable procedures and includes the following: [x] Data and vital sign review and interpretation [x] Patient assessment, examination and intervention [x] Medication orders and management [x] Patient/Family updates as able [x] Care Coordination and Documentation. Diagnoses Primary hypertension I10 Hypertension type: primary hypertension Acute on chronic diastolic congestive heart failure I50.33 Heart failure chronicity: acute on chronic Heart failure type: diastolic CAD (coronary artery disease) I25.10 Atrial fibrillation I48.91 Supratherapeutic INR R79.1 Abdominal pain R10.9 BERNADETTE (acute kidney injury) N17.9 Acute on chronic renal insufficiency N28.9; N18.9 Stage 3b chronic kidney disease N18.32 Chronic kidney disease stage 3 subtype: stage 3b (GFR 30-44) Urinary tract infection N30.00 Hematuria presence: without hematuria Urinary tract infection type: acute cystitis Staphylococcus aureus bacteremia R78.81; B95.61 BASIA (obstructive sleep apnea) G47.33 GI bleed K92.2 Acute encephalopathy G93.40 Fluid overload E87.70 Acute respiratory failure J96.00 Acute renal failure N17.9 Metabolic acidosis E87.20 Thrombocytopenia D69.6 Uremia N19 Hyperbilirubinemia E80.6 Acute respiratory distress R06.03
--- NOTE | 2023-11-21 17:28 | XRR_ITS ---
PROCEDURE INFORMATION: Exam: XR Chest Exam date and time: 11/21/2023 5:45 PM Age: 73 years old Clinical indication: Device placement; Other: Dialysis port in the groin; Prior surgery; Surgery date: 6+ months; Surgery type: Aortic valve pacer coronary stents; Additional info: Dialysis line placement TECHNIQUE: Imaging protocol: Radiologic exam of the chest. Views: 1 view. COMPARISON: CR XR chest 1V portable [id number] 11/21/2023 4:54 AM FINDINGS: Tubes, catheters and devices: Right-sided central venous catheter tip seen just distal to the atriocaval junction. Pacemaker. Lungs: See Heart/Mediastinum finding. Pleural spaces: Unremarkable. No pleural effusion. No pneumothorax. Heart/Mediastinum: Cardiomegaly and pulmonary vascular congestion. Coronary artery atherosclerotic calcifications. Bones/joints: Sternotomy wires. XR/XR chest 1V portable [id number] IMPRESSION: 1. Right-sided central venous catheter tip seen just distal to the atriocaval junction. 2. Sternotomy wires. 3. Pacemaker. 4. Cardiomegaly and pulmonary vascular congestion. 5. Coronary artery atherosclerotic calcifications.
[2023-11-21 18:01] LABS: Carbon Dioxide 18 mmol/L (22-29); Chloride 94 mmol/L (98-107); Creatinine Clr Calc Pharmacy 10.9676; Glucose 78 mg/dL (65-115); Osmolality Calculated 312 mOsm/kg (285-295); Sodium 136 mmol/L (136-145)
[2023-11-21 18:37] LABS: Anion Gap 28.7 (5-19); Potassium 4.7 mmol/L (3.5-5.1)
[2023-11-21 18:38] LABS: Blood Urea Nitrogen 100 mg/dL (8-23)
[2023-11-21 19:12] LABS: Basophils % 0.3 %; Hematocrit 26.1 % (36-47); Lymphocytes # 0.6 10^3/uL (0.8-4.8); Lymphocytes % 7.4 %; Mean Corpuscular Hemoglobin 31.9 pg (27-33); Mean Corpuscular Volume 96.7 fl (85-98); Mean Platelet Volume 9.9 fL (7.4-10.4); Monocytes # 0.1 10^3/uL (0.2-0.9); Monocytes % 1.4 %; Neutrophils # 7.08 10^3/uL (1.8-7.7); Neutrophils % 89.8 %; Nucleated Red Blood Cells % 0.3 %; Platelet Count 89 10^3/cmm (157-399); Red Cell Distribution Width 21.6 % (12.1-15.1); White Blood Count 7.88 10^3/uL (3.29-11.43)
[2023-11-21 21:18] LABS: Magnesium 2.1 mg/dL (1.7-2.3)
--- NOTE | 2023-11-21 22:08 | PC.NURSE ---
Non administered Carafate: Patient was unable to swallow liquid carafate properly, Dr Bates was notified.
--- NOTE | 2023-11-21 22:30 | PC.HD ---
Initial dialysis treatment via newly inserted femoral cath, cath functioned well, 10# sandbag to cath site d/t multiple sticks, no active bleeding or hematoma noted and sandbag removed near end of treatment. Pt asymptomatic throughout tx in spite of transient hypotension (SBP 92-104) but pulse became very irregular with multifocal complexes while SBP <105. Dr Jorge barahonafd
[2023-11-22] VITALS (53 sets, daily range): BP systolic 78–154; BP diastolic 40–118; PULSE 67–97; RESP 11–39; TEMP 35.6–36.4; O2SAT 84–100; BMI 28.5
[2023-11-22 00:52] LABS: Basophils % 0.2 %; Eosinophils % 0.1 %; Lymphocytes # 0.7 10^3/uL (0.8-4.8); Lymphocytes % 5.8 %; Mean Corpuscular Hemoglobin 31.8 pg (27-33); Mean Corpuscular Volume 93.6 fl (85-98); Mean Platelet Volume 10.5 fL (7.4-10.4); Monocytes # 0.8 10^3/uL (0.2-0.9); Monocytes % 5.9 %; Neutrophils # 11.05 10^3/uL (1.8-7.7); Nucleated Red Blood Cells % 0 %; Platelet Count 94 10^3/cmm (157-399); Red Blood Count 2.67 10^6/uL (3.85-5.65); Red Cell Distribution Width 21.6 % (12.1-15.1)
[2023-11-22 04:01] LABS: Basophils % 0.3 %; Eosinophils % 0.2 %; Hematocrit 25.7 % (36-47); Lymphocytes # 0.6 10^3/uL (0.8-4.8); Lymphocytes % 5.4 %; Mean Corpuscular HGB Conc 33.1 g/dL (30-55); Mean Corpuscular Hemoglobin 31.6 pg (27-33); Mean Corpuscular Volume 95.5 fl (85-98); Mean Platelet Volume 10.6 fL (7.4-10.4); Monocytes # 0.7 10^3/uL (0.2-0.9); Monocytes % 5.7 %; Neutrophils # 10.36 10^3/uL (1.8-7.7); Neutrophils % 87.6 %; Nucleated Red Blood Cells % 0.2 %; Platelet Count 89 10^3/cmm (157-399); Red Blood Count 2.69 10^6/uL (3.85-5.65); Red Cell Distribution Width 21.8 % (12.1-15.1); White Blood Count 11.83 10^3/uL (3.29-11.43)
[2023-11-22 04:18] LABS: INR 1.35 (0.8-1.2)
[2023-11-22 04:30] LABS: Alanine Aminotransferase < 5 U/L (0-33); Albumin Level 3.6 g/dL (3.5-5.2); Alkaline Phosphatase 181 U/L (35-105); Anion Gap 21.9 (5-19); Aspartate Amino Transferase 43 U/L (0-32); Blood Urea Nitrogen 69 mg/dL (8-23); Calcium 8.7 mg/dL (8.5-10.5); Carbon Dioxide 23 mmol/L (22-29); Chloride 96 mmol/L (98-107); Creatinine Clr Calc Pharmacy 14.4567; Globulin 2.7 g/dL (1.3-4.6); Glucose 77 mg/dL (65-115); Magnesium 1.9 mg/dL (1.7-2.3); Osmolality Calculated 303 mOsm/kg (285-295); Phosphorus 4.7 mg/dL (2.5-4.5); Potassium 3.9 mmol/L (3.5-5.1); Sodium 137 mmol/L (136-145); Total Bilirubin 1.7 mg/dL (0.15-1.2); Total Protein 6.3 g/dL (6.6-8.7)
[2023-11-22 05:00] LABS: NT Pro B Type Natriuretic Pept 40193 pg/mL (0-125)
[2023-11-22] MEDS: bumetanide 25 MG in empty flexible container 1 EACH 4 MG IV (07:19)
--- NOTE | 2023-11-22 08:36 | P.PN_ITS ---
Subjective 2 Subjective: the pt is weak, lethargic, on nc o2. s/p HD yesterday Medications: Reviewed: Yes Medication Review Details: Current Medications Dextrose (D10w) 125 mls @ 750 mls/hr IV PRN PRN PRN Reason: HYPOGLYCEMIA Last Infusion: 11/22/23 07:42 Dose: Infused Piperacillin Sod/Tazobactam (Sod 3.375 gm/ Sodium Chloride) 50 mls @ 12.5 mls/hr IV Q12H JEREMY Last Infusion: 11/22/23 07:42 Dose: Infused Levothyroxine Sodium (Levothyroxine 25 Mcg Tablet) 25 mcg PO QAM JEREMY Last Admin: 11/22/23 07:42 Dose: Not Given Ondansetron HCl (Ondansetron 2 Mg/Ml Sdv 2 Ml) 4 mg IVP Q8H PRN PRN Reason: vomiting, or N/V if npo Pantoprazole Sodium (Pantoprazole 40 Mg Sdv) 40 mg IVP Q12H JEREMY Last Admin: 11/21/23 21:23 Dose: 40 mg Sucralfate (Sucralfate 1 Gm/10 Ml Oral Liq Udc) 1 gm PO Q6H JEREMY Last Admin: 11/21/23 21:08 Dose: Not Given Vitals/I&O/Wt Last Vital Signs Temp 96.7 F L 11/22/23 04:00 Pulse 74 11/22/23 06:00 Resp 23 H 11/22/23 00:30 BP 135/54 11/22/23 00:30 Pulse Ox 99 11/22/23 00:30 O2 Del Method Nasal Cannula 11/22/23 00:30 O2 Flow Rate 4 11/22/23 00:30 11/21/23 11/22/23 11/22/23 22:59 06:59 14:59 Intake Total 1093.500 / 1561.833 805.300 / 805.300 Output Total 1603 / 1603 300 / 1903 Balance -509.500 / -41.167 -300 / -341.167 805.300 / 805.300 Weight last 48 hrs Weight 77.819 kg Weight 83.1 kg Weight 79.435 kg Physical Exam 2 Narrative: Elderly ill-appearing lady in bed hemodynamically stable. using nc 02 HEENT normocephalic/atraumatic. Neck is supple, rt sided line Lungs dull bases. Heart irregular with heart rate control. Abdomen soft positive bowel sounds. Extremities bilateral 1-2+ leg edema. Neuro lethargic however awakens follows simple commands . Data 11/22/23 03:11 11/22/23 03:11 Micro: Microbiology 11/19/23 19:00 Urine Culture - Final Urine,Clean Catch 11/20/23 14:40 Urine Culture - Preliminary Urine,Clean Catch A&P Assessment and plan (1) Acute on chronic renal insufficiency: 73-year-old lady history of heart failure reduced EF, CABG, PCI, question pulmonary embolism, hypertension, obstructive sleep apnea, A-fib, peripheral arterial disease, atrophic right kidney, liver cirrhosis, recent Staph aureus bacteremia 1. Patient here with GI bleed. Status post endoscopy yesterday with nonbleeding varices and portal hypertension. 2. Acute kidney injury in this patient baseline creatinine was normal 1 year ago was 0.61 up to 1.1 mg/dL September 2023. Creatinine of 2.1 mg/dL 3 weeks ago when she left the hospital and most of October. Now with a creatinine of 5 mg/dL. Imaging without hydronephrosis however she does have an atrophic right kidney. Urinalysis reviewed 1+ protein she does have 1+ ketones 3+ blood, leukocytes 2+ 25-40 white cells question of UTI on antibiotics. Patient has CT scan showing un changes atrophy of the right kidney with diffuse cortical thinning some simple cyst no hydronephrosis Differential diagnosis in this patient is: a ATN, risk would be being on diuretics,not eating well, having a GI bleed, and likely having some hypotension the patient with heart failure reduced EF and having an atrophic right kidney at baseline b infection related GN though does not have significant hematuria - C. interstitial nephritis from antibiotics d/ less likely abdomen Alysis is AST and ALT are very low. e. Less likely cardiorenal syndrome though can be contributing. Also note patient received contrast was already in acute kidney injury. Patient is at high risk for progression of acute kidney injury and is oliguric. she is s/p fiest HD yesterday repeat SUF today assess for full HD tomorrow 3.metabolic acidosis is improved 4. Hyperkalemia likely from acute kidney injury-has improved.. 5. Anemia from GI bleed and also from chronic disease. Negative SPEP. Can check B12 and folate level. Consider giving more blood. 6. Elevated TSH consider giving levothyroxine as per medicine. 8. Elevated BNP patient with heart failure reduced EF. per cardiology. ef appears to have improved to 30% and moderate MR Patient seen and examined with the patient's nurse The patient was seen and examined using A/V equipment. Plan See above. Attestations 2 Medical Necessity Statement*: chf, elvin, ams Time Spent in Patient Care: 16 - 35 minutes (>than 50% of time sp ent in counselling and/or direct pt care on unit) . Coding Level of Care Code Acute Code for Chg Fwd Diagnoses Acute on chronic renal insufficiency N28.9; N18.9
[2023-11-22] MEDS: pantoprazole 40 mg SDV IVP ×2 (09:02→22:03)
[2023-11-22] MEDS: piperacillin-tazobactam 3.375 GM in sodium chloride 0.9% (plus) 50 ML IV ×2 (09:02→22:03)
--- NOTE | 2023-11-22 09:56 | PC.SLP ---
Pt not alert enough to participate in assessment. She was somewhat resistive to oral care.
[2023-11-22] MEDS: lanolin oint 7 gm 1 APPLIC TOPICAL (10:13)
--- NOTE | 2023-11-22 14:15 | P.PN_ITS ---
Subjective 2 Subjective: Patient seen and examined. No further bloody bowel movements. Hemodialysis is being performed without difficulty Vitals/I&O/Wt Last Vital Signs Temp 97.4 F L 11/24/23 08:06 Pulse 80 11/24/23 08:06 Resp 16 11/24/23 08:06 BP 141/60 11/24/23 08:06 Pulse Ox 96 11/24/23 08:06 O2 Del Method Nasal Cannula 11/24/23 08:06 O2 Flow Rate 2 11/23/23 20:00 11/23/23 11/24/23 11/24/23 22:59 06:59 14:59 Intake Total 125 / 675 50 / 725 Output Total 50 / 3550 Balance 125 / -2825 0 / -2825 Weight last 48 hrs Weight 160 lb Weight 165 lb 9.074 oz Weight 168 lb 6 oz Physical Exam 2 Narrative: General: No acute distress, not answering any questions Abdomen: Soft, nontender, nondistended Right groin, catheter insertion site clean dry and intact Data 11/24/23 05:50 11/24/23 05:50 A&P Assessment and plan (1) Gastritis: (2) Duodenitis: (3) Esophageal varices: (4) Hiatal hernia: (5) Acute on chronic renal insufficiency: Plan Continue pantoprazole and sucralfate Await pathology diagnosis on biopsies during EGD Dialysis per nephrology Medical management per hospitalist Attestations 2 Medical Necessity Statement*: Per primary Coding Level of Care Code Acute Code for [facility] Fwd Diagnoses Gastritis K29.70 Duodenitis K29.80 Esophageal varices I85.00 Hiatal hernia K44.9 Acute on chronic renal insufficiency N28.9; N18.9
--- NOTE | 2023-11-22 15:55 | PC.SLP ---
Patient is still not able to participate in [employer] SERVICES [employer] assessment for swallowing due to her medical condition and level of alertness.
[2023-11-22 16:00] LABS: Anti-Nuclear Antibody Screen NEGATIVE (NEGATIVE)
--- NOTE | 2023-11-22 19:20 | P.PN_ITS ---
Subjective 2 Subjective: - Patient was examined this morning ? She is alert to person, not to place, not to time she does not follow commands she is quite encephalopathic, afebrile overnight, normotensive, no reported bloody or black stools by nursing staff ? Will continue to monitor closely ? She was monitored getting dialysis, remains encephalopathic ? Monitored in the afternoon, receiving dialysis, remains encephalopathic, is at bedside, discussed goals of care, he wants to continue giving her a trial of dialysis to see if it would help with her mentation, she remains on 4 L, on examination continues to have crackles, anasarca, will continue to give her time as per 's request Vitals/I&O/Wt Last Vital Signs Temp 96.1 F L 11/22/23 14:07 Pulse 80 11/22/23 16:00 Resp 19 H 11/22/23 16:00 BP 78/50 11/22/23 16:00 Pulse Ox 98 11/22/23 16:00 O2 Del Method Nasal Cannula 11/22/23 13:42 O2 Flow Rate 4 11/22/23 13:42 11/22/23 11/22/23 11/22/23 06:59 14:59 22:59 Intake Total 805.300 / 805.300 50 / 855.300 Output Total 300 / 1903 125 / 125 Balance -300 / -341.167 805.300 / 805.300 -75 / 730.300 Weight last 48 hrs Weight 77.819 kg Weight 83.1 kg Weight 79.435 kg Physical Exam 2 Const: COMMON NORMALS: no acute distress EXAM LIMITATIONS: altered mental status ORIENTATION/CONSCIOUSNESS: Yes awake, Yes oriented to person and Yes confused; not oriented to place and not oriented to time Resp: COMMON NORMALS: normal respiratory effort, No retractions and No use of accessory muscles AUSCULTATION: crackles Cardio: COMMON NORMALS: regular rate, regular rhythm, S1 normal heart sound present and S2 normal heart sound present RATE: regular rate RHYTHM: r egular rhythm HEART SOUNDS: S1 normal heart sound present and S2 normal heart sound present GI: COMMON NORMALS: Normal to inspection, nondistended, normoactive bowel sounds present and non-tender Extremity: COMMON NORMALS: capillary refill normal Neuro: SENSORIUM/ORIENTATION: Yes oriented to person, No oriented to place and No oriented to time Skin: NARRATIVE SKIN EXAM: Generalized anasarca, fluid overload, 2+ pitting edema, crackles on examination Data 11/22/23 03:11 11/22/23 03:11 Micro: Microbiology 11/20/23 14:40 Urine Culture - Final Urine,Clean Catch A&P Assessment and plan (1) HTN (hypertension): Hold blood pressure medications Qualifiers: Hypertension type: primary hypertension Qualified Code(s): I10 - Essential (primary) hypertension (2) Congestive heart failure: Qualifiers: Heart failure chronicity: acute on chronic Heart failure type: d iastolic Qualified Code(s): I50.33 - Acute on chronic diastolic (congestive) heart failure (3) CAD (coronary artery disease): (4) Atrial fibrillation: (5) Supratherapeutic INR: (6) Abdominal pain: (7) BERNADETTE (acute kidney injury): (8) Acute on chronic renal insufficiency: (9) CKD (chronic kidney disease) stage 3, GFR 30-59 ml/min: Qualifiers: Chronic kidney disease stage 3 subtype: stage 3b (GFR 30-44) Qualified Code(s): N18.32 - Chronic kidney disease, stage 3b (10) Urinary tract infection: Qualifiers: Hematuria presence: without hematuria Urinary tract infection type: a cute cystitis Qualified Code(s): N30.00 - Acute cystitis without hematuria (11) Staphylococcus aureus bacteremia: (12) BASIA (obstructive sleep apnea): (13) GI bleed: (14) Acute encephalopathy: (15) Fluid overload: (16) Acute respiratory failure: (17) Acute renal failure: (18) Metabolic acidosis: (19) Thrombocytopenia: (20) Uremia: (21) Hyperbilirubinemia: (22) Acute respiratory distress: Plan Plan Acute upper GI bleed ? Status post 2 units of blood, 3 units FFP, 1 unit platelet ? Status post EGD, findings of duodenitis with contact bleeding, clips placed into the duodenum, portal hypertensive gastropathy, small hiatal hernia, nonbleeding esophageal varices ? Plan ? Keep n.p.o. ? Protonix 40 mg IV twice daily ? Carafate ? Monitor hemoglobin, INR, BMP closely -Transfuse for hemoglobin less than 7 ? Will consider FFP if INR is above 1.5-2 ? Monitor for bloody or black stools -monitor hemodynamics closely Metabolic acidosis, increased anion gap ? Secondary to acute blood loss anemia, potentially starvation ketosis, liver cirrhosis ? Plan ?Receiving dialysis ? Concerns for fluid overload Liver cirrhosis CT scan shows liver having a cirrhotic morphology, small to moderate volume ascites, with anasarca ? Etiology hepatitis panel within normal limits, had a cholecystectomy in August of this year, cannot do an MRCP given her pacemaker ? During her last hospitalization when I took care of her she also developed hyperbilirubinemia, with transaminitis, there was discussion with [facility], they recommended for patient to follow-up with hepatology as outpatient. In review of her records show that when she has had hospitalizations for CHF exacerbation she has had hyperbilirubinemia at that time also ? Thus I suspect her etiology of liver cirrhosis being cardiac cirrhosis, from severe heart failure ? With hyperbilirubinemia ? With thrombocytopenia ? With elevated INR ? Supratherapeutic INR ? Acute renal failure ? Hyperbilirubinemia ? Monitor closely ? Plan Thrombocytopenia ? She had thrombocytopenia during her last hospitalization secondary to Protonix ? Currently on Protonix for her GI bleed will continue monitor platelet count closely Acute hypoxic respiratory failure, 4 L ? Secondary to acute fluid overload, blood products ? History of systolic CHF, last echocardiogram October 21, 2023 showed a EF of 20% with severe diffuse hypokinesia of the left ventricle ? Plan ? Monitor respiratory status closely -[place] response to Bumex, Bumex drip -Status post dialysis catheter placement, currently receiving 2 session of dialysis -Monitor respiratory status closely will consider BiPAP based on clinical progress ? Monitor creatinine, monitor potassium Acute systolic CHF exacerbation ? As above Acute encephalopathy ? Likely multifactorial, from acute hypoxia, GI bleed, possible UTI, uremic encephalopathy ? Neurochecks ? N/A stroke scale ? Aspiration precaution Keep n.p.o. Uremic encephalopathy Acute renal failure on chronic kidney disease ? Likely multifactorial ? From GI bleed, ? Liver cirrhosis, possible hepatorenal syndrome? Possible cardiorenal syndrome given severely diminished EF ? Nephrology consulted ? [place]luster response to sodium bicarb, Bumex drip, Status post dialysis catheter placement second session of dialysis ? Hyperkalemia, Urinary tract infection ? Continue Zosyn ? Follow urine cultures ? Follow blood cultures History of Staph aureus bacteremia ? On IV cefazolin -Switch to Zosyn Atrial fibrillation, not on anticoagulation CAD, on Plavix, - Plavix currently on hold Cath in 2022 showed ?Conclusions 1. Critical in-stent restenosis of 2. SVG to diagonal artery prior stent. Status post successful revascularization with balloon angioplasty. Severe stenosis of SVG to diagonal artery proximal to prior stent. S/p successful revascularization with 1 stent.. 3. Patient has prior CABG. plan ? Serial EKGs consult once, telemetry monitoring neck ? The longer anticoagulation/antiplatelet therapy is held, the higher risk of adverse cardiovascular event, Certainly this is a difficult situation on the 1 hand she has a risk of coronary event as she her aspirin and Plavix are on hold, but on the other hand is a high risk of GI bleed for now as she is currently in for GI bleed will hold anticoagulation - Patient was examined this morning ? She is alert to person, not to place, not to time she does not follow commands she is quite encephalopathic, afebrile overnight, normotensive, no reported bloody or black stools by nursing staff ? Will continue to monitor closely ? She was monitored getting dialysis, remains encephalopathic ? Monitored in the afternoon, receiving dialysis, remains encephalopathic, is at bedside, discussed goals of care, he wants to continue giving her a trial of dialysis to see if it would help with her mentation, she remains on 4 L, on examination continues to have crackles, anasarca, will continue to give her time as per 's request ? Plan for today getting dialysis, monitor hemoglobin monitor mentation, keep n.p.o. monitor hypotension, spoke to patient's spoke to nursing staff Attestations 2 Medical Necessity Statement*: Patient requires hospitalization for GI bleed, acute encephalopathy, uremic encephalopathy, fluid overload, acute renal failure, liver cirrhosis Diagnoses Primary hypertension I10 Hypertension type: primary hypertension Acute on chronic diastolic congestive heart failure I50.33 Heart failure chronicity: acute on chronic Heart failure type: diastolic CAD (coronary artery disease) I25.10 Atrial fibrillation I48.91 Supratherapeutic INR R79.1 Abdominal pain R10.9 BERNADETTE (acute kidney injury) N17.9 Acute on chronic renal insufficiency N28.9; N18.9 Stage 3b chronic kidney disease N18.32 Chronic kidney disease stage 3 subtype: stage 3b (GFR 30-44) Urinary tract infection N30.00 Hematuria presence: without hematuria Urinary tract infection type: acute cystitis Staphylococcus aureus bacteremia R78.81; B95.61 BASIA (obstructive sleep apnea) G47.33 GI bleed K92.2 Acute encephalopathy G93.40 Fluid overload E87.70 Acute respiratory failure J96.00 Acute renal failure N17.9 Metabolic acidosis E87.20 Thrombocytopenia D69.6 Uremia N19 Hyperbilirubinemia E80.6 Acute respiratory distress R06.03
[2023-11-23] VITALS (40 sets, daily range): BP systolic 78–151; BP diastolic 44–91; PULSE 53–96; RESP 15–39; TEMP 35.7–36.6; O2SAT 84–100; BMI 28.0
[2023-11-23 04:14] LABS: Basophils % 0.2 %; Hematocrit 27.4 % (36-47); Lymphocytes # 0.5 10^3/uL (0.8-4.8); Lymphocytes % 3.5 %; Mean Corpuscular HGB Conc 32.8 g/dL (30-55); Mean Corpuscular Hemoglobin 31.8 pg (27-33); Mean Corpuscular Volume 96.8 fl (85-98); Mean Platelet Volume 10.7 fL (7.4-10.4); Monocytes # 1.1 10^3/uL (0.2-0.9); Monocytes % 8.8 %; Neutrophils % 86.6 %; Nucleated Red Blood Cells % 0.2 %; Platelet Count 85 10^3/cmm (157-399); Red Blood Count 2.83 10^6/uL (3.85-5.65)
[2023-11-23 04:42] LABS: Alanine Aminotransferase < 5 U/L (0-33); Albumin Level 3.4 g/dL (3.5-5.2); Alkaline Phosphatase 187 U/L (35-105); Blood Urea Nitrogen 77 mg/dL (8-23); Calcium 8.9 mg/dL (8.5-10.5); Carbon Dioxide 20 mmol/L (22-29); Chloride 98 mmol/L (98-107); Creatinine Clr Calc Pharmacy 13.3037; Globulin 2.8 g/dL (1.3-4.6); Glucose 64 mg/dL (65-115); Osmolality Calculated 315 mOsm/kg (285-295); Phosphorus 5.3 mg/dL (2.5-4.5); Sodium 142 mmol/L (136-145); Total Bilirubin 1.5 mg/dL (0.15-1.2); Total Protein 6.2 g/dL (6.6-8.7)
[2023-11-23 04:46] LABS: Anion Gap 28.1 (5-19); Aspartate Amino Transferase 42 U/L (0-32); Potassium 4.1 mmol/L (3.5-5.1)
[2023-11-23 05:04] LABS: NT Pro B Type Natriuretic Pept 44377 pg/mL (0-125)
[2023-11-23 05:26] LABS: Glucose Point of Care 67 mg/dL (70-110)
[2023-11-23 08:16] LABS: Glucose Point of Care 72 mg/dL (70-110)
[2023-11-23] MEDS: pantoprazole 40 mg SDV IVP ×2 (09:10→22:12)
[2023-11-23] MEDS: piperacillin-tazobactam 3.375 GM in sodium chloride 0.9% (plus) 50 ML IV ×2 (09:12→22:11)
--- NOTE | 2023-11-23 12:36 | P.PN_ITS ---
Subjective 2 Subjective: no new complaints Medications: Reviewed: Yes Vitals/I&O/Wt Last Vital Signs Temp 96.3 F L 11/23/23 11:57 Pulse 77 11/23/23 12:00 Resp 20 H 11/23/23 12:00 BP 131/87 11/23/23 12:00 Pulse Ox 94 11/23/23 12:00 O2 Del Method Nasal Cannula 11/23/23 10:07 O2 Flow Rate 2 11/23/23 10:07 11/22/23 11/23/23 11/23/23 22:59 06:59 14:59 Intake Total 50 / 855.300 50 / 905.300 0 / 0 Output Total 125 / 125 50 / 175 Balance -75 / 730.300 0 / 730.300 0 / 0 Weight last 48 hrs Weight 76.374 kg Weight 77.819 kg Weight 83.1 kg Physical Exam 2 Narrative: Elderly ill-appearing lady in bed hemodynamically stable. using nc 02 HEENT normocephalic/atraumatic. Neck is supple, rt sided line Lungs dull bases. Heart irregular with heart rate control. Abdomen soft positive bowel sounds. Extremities bilateral 1-2+ leg edema. Neuro lethargic however awakens follows simple commands . Data 11/23/23 03:39 11/23/23 03:39 Micro: Microbiology 11/20/23 14:40 Urine Culture - Final Urine,Clean Catch A&P Assessment and plan (1) Acute on chronic renal insufficiency: 73-year-old lady history of heart failure reduced EF, CABG, PCI, question pulmonary embolism, hypertension, obstructive sleep apnea, A-fib, peripheral arterial disease, atrophic right kidney, liver cirrhosis, recent Staph aureus bacteremia 1. Patient here with GI bleed. Status post endoscopy yesterday with nonbleeding varices and portal hypertension. 2. Acute kidney injury in this patient baseline creatinine was normal 1 year ago was 0.61 up to 1.1 mg/dL September 2023. Creatinine of 2.1 mg/dL 3 weeks ago when she left the hospital and most of October. Now with a creatinine of 5 mg/dL. Imaging without hydronephrosis however she does have an atrophic right kidney. Urinalysis reviewed 1+ protein she does have 1+ ketones 3+ blood, leukocytes 2+ 25-40 white cells question of UTI on antibiotics. Patient has CT scan showing un changes atrophy of the right kidney with diffuse cortical thinning some simple cyst no hydronephrosis Differential diagnosis in this patient is: a ATN, risk would be being on diuretics,not eating well, having a GI bleed, and likely having some hypotension the patient with heart failure reduced EF and having an atrophic right kidney at baseline b infection related GN though does not have significant hematuria - C. interstitial nephritis from antibiotics e. Less likely cardiorenal syndrome though can be contributing. Also note patient received contrast - . Patient is at high risk for progression of acute kidney injury and is oliguric. she is s/p first HD tuesday, SCUF on tuesday and HD today 3.metabolic acidosis is improved 4. Hyperkalemia likely from acute kidney injury-has improved.. 5. Anemia from GI bleed and also from chronic disease. Negative SPEP. Can check B12 and folate level. Consider giving more blood. 6. Elevated TSH consider giving levothyroxine as per medicine. 8. Elevated BNP patient with heart failure reduced EF. per cardiology. ef appears to have improved to 30% and moderate MR Patient seen and examined with the patient's nurse The patient was seen and examined using A/V equipment. Plan See above. Attestations 2 Medical Necessity Statement*: per shashank Coding Level of Care Code Acute Code for Chg Fwd Diagnoses Acute on chronic renal insufficiency N28.9; N18.9
--- NOTE | 2023-11-23 14:08 | PC.SOCIAL ---
IMM Update pg 2 of IMM updated and reviewed w/ patients . Copy provided and copy dated, initialed and placed in chart.
--- NOTE | 2023-11-23 14:46 | P.PN_ITS ---
Subjective 2 Subjective: Patient was seen this morning, is at bedside, afebrile overnight, normotensive, on 4 L, remains encephalopathic however she responds to her name, she can follow commands such as squeezing my fingers bilaterally able to smile for me, wiggle her toes, she is able to say a couple words here and there, but is quite fatigued, has generalized malaise Vitals/I&O/Wt Last Vital Signs Temp 96.3 F L 11/23/23 11:57 Pulse 77 11/23/23 12:00 Resp 20 H 11/23/23 12:00 BP 131/87 11/23/23 12:00 Pulse Ox 94 11/23/23 12:00 O2 Del Method Nasal Cannula 11/23/23 10:07 O2 Flow Rate 2 11/23/23 10:07 11/22/23 11/23/23 11/23/23 22:59 06:59 14:59 Intake Total 50 / 855.300 50 / 905.300 50 / 50 Output Total 125 / 125 50 / 175 Balance -75 / 730.300 0 / 730.300 50 / 50 Weight last 48 hrs Weight 76.374 kg Weight 77.819 kg Weight 83.1 kg Physical Exam 2 Const: COMMON NORMALS: no acute distress EXAM LIMITATIONS: altered mental status Resp: COMMON NORMALS: normal respiratory effort, No retractions, No use of accessory muscles and clear to auscultation bilaterally AUSCULTATION: clear to auscultation bilaterally Cardio: COMMON NORMALS: regular rate, regular rhythm, S1 normal heart sound present and S2 normal heart sound present RATE: regular rate RHYTHM: r egular rhythm HEART SOUNDS: S1 normal heart sound present and S2 normal heart sound present GI: COMMON NORMALS: Normal to inspection, nondistended, normoactive bowel sounds present OTHER: Has diffuse tenderness Extremity: COMMON NORMALS: no pedal edema Data 11/23/23 03:39 11/23/23 03:39 Micro: Microbiology 11/20/23 14:40 Urine Culture - Final Urine,Clean Catch A&P Assessment and plan (1) HTN (hypertension): Hold blood pressure medications Qualifiers: Hypertension type: primary hypertension Qualified Code(s): I10 - Essential (primary) hypertension (2) Congestive heart failure: Qualifiers: Heart failure chronicity: acute on chronic Heart failure type: d iastolic Qualified Code(s): I50.33 - Acute on chronic diastolic (congestive) heart failure (3) CAD (coronary artery disease): (4) Atrial fibrillation: (5) Supratherapeutic INR: (6) Abdominal pain: (7) BERNADETTE (acute kidney injury): (8) Acute on chronic renal insufficiency: (9) CKD (chronic kidney disease) stage 3, GFR 30-59 ml/min: Qualifiers: Chronic kidney disease stage 3 subtype: stage 3b (GFR 30-44) Qualified Code(s): N18.32 - Chronic kidney disease, stage 3b (10) Urinary tract infection: Qualifiers: Hematuria presence: without hematuria Urinary tract infection type: a cute cystitis Qualified Code(s): N30.00 - Acute cystitis without hematuria (11) Staphylococcus aureus bacteremia: (12) BASIA (obstructive sleep apnea): (13) GI bleed: (14) Acute encephalopathy: (15) Fluid overload: (16) Acute respiratory failure: (17) Acute renal failure: (18) Metabolic acidosis: (19) Thrombocytopenia: (20) Uremia: (21) Hyperbilirubinemia: (22) Acute respiratory distress: Plan Plan Acute upper GI bleed ? Status post 2 units of blood, 3 units FFP, 1 unit platelet ? Status post EGD, findings of duodenitis with contact bleeding, clips placed into the duodenum, portal hypertensive gastropathy, small hiatal hernia, nonbleeding esophageal varices ? Plan ? Keep n.p.o. ? Protonix 40 mg IV twice daily ? Carafate ? Monitor hemoglobin, INR, BMP closely -Transfuse for hemoglobin less than 7 ? Will consider FFP if INR is above 1.5-2 ? Monitor for bloody or black stools -monitor hemodynamics closely Metabolic acidosis, increased anion gap ? Secondary to acute blood loss anemia, potentially starvation ketosis, liver cirrhosis ? Plan ?Receiving dialysis ? Concerns for fluid overload Liver cirrhosis CT scan shows liver having a cirrhotic morphology, small to moderate volume ascites, with anasarca ? Etiology hepatitis panel within normal limits, had a cholecystectomy in August of this year, cannot do an MRCP given her pacemaker ? During her last hospitalization when I took care of her she also developed hyperbilirubinemia, with transaminitis, there was discussion with [facility], they recommended for patient to follow-up with hepatology as outpatient. In review of her records show that when she has had hospitalizations for CHF exacerbation she has had hyperbilirubinemia at that time also ? Thus I suspect her etiology of liver cirrhosis being cardiac cirrhosis, from severe heart failure ? With hyperbilirubinemia ? With thrombocytopenia ? With elevated INR ? Supratherapeutic INR ? Acute renal failure ? Hyperbilirubinemia ? Monitor closely ? Plan Thrombocytopenia ? She had thrombocytopenia during her last hospitalization secondary to Protonix ? Currently on Protonix for her GI bleed will continue monitor platelet count closely Acute hypoxic respiratory failure, 4 L ? Secondary to acute fluid overload, blood products ? History of systolic CHF, last echocardiogram October 21, 2023 showed a EF of 20% with severe diffuse hypokinesia of the left ventricle ? Plan ? Monitor respiratory status closely -Lackluster response to Bumex, Bumex drip -Status post dialysis catheter placement, currently receiving 2 session of dialysis -Monitor respiratory status closely will consider BiPAP based on clinical progress ? Monitor creatinine, monitor potassium Acute systolic CHF exacerbation ? As above Acute encephalopathy ? Likely multifactorial, from acute hypoxia, GI bleed, possible UTI, uremic encephalopathy ? Neurochecks ? N/A stroke scale ? Aspiration precaution Keep n.p.o. Uremic encephalopathy Acute renal failure on chronic kidney disease ? Likely multifactorial ? From GI bleed, ? Liver cirrhosis, possible hepatorenal syndrome? Possible cardiorenal syndrome given severely diminished EF ? Nephrology consulted ? Lackluster response to sodium bicarb, Bumex drip, Status post dialysis catheter placement second session of dialysis ? Hyperkalemia, Urinary tract infection ? Continue Zosyn ? Follow urine cultures ? Follow blood cultures History of Staph aureus bacteremia ? On IV cefazolin -Switch to Zosyn Atrial fibrillation, not on anticoagulation CAD, on Plavix, - Plavix currently on hold Cath in 2022 showed ?Conclusions 1. Critical in-stent restenosis of 2. SVG to diagonal artery prior stent. Status post successful revascularization with balloon angioplasty. Severe stenosis of SVG to diagonal artery proximal to prior stent. S/p successful revascularization with 1 stent.. 3. Patient has prior CABG. plan ? Serial EKGs consult once, telemetry monitoring neck ? The longer anticoagulation/antiplatelet therapy is held, the higher risk of adverse cardiovascular event, Certainly this is a difficult situation on the 1 hand she has a risk of coronary event as she her aspirin and Plavix are on hold, but on the other hand is a high risk of GI bleed for now as she is currently in for GI bleed will hold anticoagulation Patient continues to have severe protein calorie malnutrition, physical deconditioning, acute encephalopathy, poor appetite, will have speech therapy see her, see if we can advance her diet continue antibiotics, no plans on dialysis today, she looks euvolemic although her arms are swollen, urine output has been lackluster, for 450 cc, she does have abdominal pain complaints continue to monitor mentation, Attestations 2 Medical Necessity Statement*: Patient requires hospitalization for GI bleed, acute renal failure, uremic encephalopathy, UTI, liver cirrhosis Diagnoses Primary hypertension I10 Hypertension type: primary hypertension Acute on chronic diastolic congestive heart failure I50.33 Heart failure chronicity: acute on chronic Heart failure type: diastolic CAD (coronary artery disease) I25.10 Atrial fibrillation I48.91 Supratherapeutic INR R79.1 Abdominal pain R10.9 BERNADETTE (acute kidney injury) N17.9 Acute on chronic renal insufficiency N28.9; N18.9 Stage 3b chronic kidney disease N18.32 Chronic kidney disease stage 3 subtype: stage 3b (GFR 30-44) Urinary tract infection N30.00 Hematuria presence: without hematuria Urinary tract infection type: acute cystitis Staphylococcus aureus bacteremia R78.81; B95.61 BASIA (obstructive sleep apnea) G47.33 GI bleed K92.2 Acute encephalopathy G93.40 Fluid overload E87.70 Acute respiratory failure J96.00 Acute renal failure N17.9 Metabolic acidosis E87.20 Thrombocytopenia D69.6 Uremia N19 Hyperbilirubinemia E80.6 Acute respiratory distress R06.03
[2023-11-23] MEDS: dextrose 10% 125 ML 750 ML IV (16:26)
[2023-11-23 21:21] LABS: Glucose Point of Care 57 mg/dL (70-110)
[2023-11-23 21:21] LABS: Glucose Point of Care 69 mg/dL (70-110)
[2023-11-23 21:21] LABS: Glucose Point of Care 71 mg/dL (70-110)
[2023-11-23 21:24] LABS: Glucose Point of Care 98 mg/dL (70-110)
[2023-11-23 21:25] LABS: Glucose Point of Care 79 mg/dL (70-110)
[2023-11-23 22:31] LABS: Glucose Point of Care 72 mg/dL (70-110)
[2023-11-23 23:43] LABS: Glucose Point of Care 67 mg/dL (70-110)
[2023-11-24] VITALS (9 sets, daily range): BP systolic 119–146; BP diastolic 57–73; PULSE 75–87; RESP 16–28; TEMP 36.3–37; O2SAT 2–98
[2023-11-24 01:10] LABS: Glucose Point of Care 68 mg/dL (70-110)
[2023-11-24 02:09] LABS: Glucose Point of Care 70 mg/dL (70-110)
[2023-11-24 04:14] LABS: Glucose Point of Care 68 mg/dL (70-110)
[2023-11-24] MEDS: dextrose 10% 125 ML 750 ML IV ×2 (05:09→10:38)
[2023-11-24 05:20] LABS: Glucose Point of Care 59 mg/dL (70-110)
[2023-11-24 05:54] LABS: Glucose Point of Care 104 mg/dL (70-110)
[2023-11-24 05:58] LABS: Basophils % 0.1 %; Hematocrit 26.7 % (36-47); Lymphocytes # 0.2 10^3/uL (0.8-4.8); Lymphocytes % 1.2 %; Mean Corpuscular HGB Conc 33.7 g/dL (30-55); Monocytes # 1.5 10^3/uL (0.2-0.9); Monocytes % 7.6 %; Neutrophils % 89.6 %; Nucleated Red Blood Cells # 0.1 /100WBC; Nucleated Red Blood Cells % 0.3 %; Platelet Count 77 10^3/cmm (157-399); Red Blood Count 2.81 10^6/uL (3.85-5.65); Red Cell Distribution Width 21.5 % (12.1-15.1); White Blood Count 19.19 10^3/uL (3.29-11.43)
[2023-11-24 06:19] LABS: Alanine Aminotransferase < 5 U/L (0-33); Albumin Level 3.4 g/dL (3.5-5.2); Alkaline Phosphatase 193 U/L (35-105); Blood Urea Nitrogen 41 mg/dL (8-23); Calcium 8.6 mg/dL (8.5-10.5); Carbon Dioxide 26 mmol/L (22-29); Chloride 100 mmol/L (98-107); Globulin 2.8 g/dL (1.3-4.6); Glucose 94 mg/dL (65-115); Magnesium 1.9 mg/dL (1.7-2.3); Osmolality Calculated 304 mOsm/kg (285-295); Phosphorus 3.2 mg/dL (2.5-4.5); Sodium 142 mmol/L (136-145); Total Bilirubin 1.9 mg/dL (0.15-1.2); Total Protein 6.2 g/dL (6.6-8.7)
[2023-11-24 06:20] LABS: Anion Gap 19.5 (5-19); Potassium 3.5 mmol/L (3.5-5.1)
[2023-11-24 06:21] LABS: Aspartate Amino Transferase 44 U/L (0-32)
[2023-11-24 06:26] LABS: Glucose Point of Care 86 mg/dL (70-110)
--- NOTE | 2023-11-24 08:43 | XRR_ITS ---
PROCEDURE INFORMATION: Exam: XR Abdomen Exam date and time: 11/24/2023 1:17 PM Age: 73 years old Clinical indication: Abdominal pain; Generalized TECHNIQUE: Imaging protocol: Radiologic exam of the abdomen. Views: Frontal supine view of the abdomen. 1 View. COMPARISON: CT abdomen pelvis w con* [id number] 11/19/2023 6:08 PM FINDINGS: Tubes, catheters and devices: Right femoral central venous catheter extending to the approximate level of the IVC bifurcation. Incomplete imaging cardiac ICD. Vascular stent projected over the lumbosacral region; correlation recommended. Generalized paucity of bowel gas. Surgical clips noted in the right abdomen. Levocurvature of the lumbar spine with degenerative change. Gastrointestinal tract: See Tubes, catheters and devices finding. Bones/joints: See Tubes, catheters and devices finding. XR/XR KUB portable [id number] IMPRESSION: Generalized paucity of bowel gas. No definite acute pathology demonstrated.
--- NOTE | 2023-11-24 08:43 | XRR_ITS ---
PROCEDURE INFORMATION: Exam: XR Chest Exam date and time: 11/24/2023 1:14 PM Age: 73 years old Clinical indication: Pain; Other: Abdominal; Additional info: Leukocytosis TECHNIQUE: Imaging protocol: Radiologic exam of the chest. Views: 1 view. COMPARISON: CR (CHEST, ) 11/21/2023 5:45 PM FINDINGS: Tubes, catheters and devices: Cardiac pacemaker/ICD is in place. Right-sided PICC line remains in place with tip near the cavoatrial junction.Prior median sternotomy. Lungs: Suboptimal visualization of the left retrocardiac region. Probable left basilar atelectasis and/or airspace disease. Suboptimal pulmonary expansion with associated accentuation of bronchovascular markings. Pleural spaces: No pleural effusion. Heart/Mediastinum: Cardiomediastinal contours accentuated by low lung volumes and AP technique. Diaphragm: Elevated right hemidiaphragm. Bones/joints: See Tubes, catheters and devices finding. XR/XR chest 1V portable [id number] IMPRESSION: Probable left lower lobe atelectasis and/or airspace disease. PA and lateral projections recommended for further assessment if clinically feasible.
[2023-11-24 08:56] LABS: Glucose Point of Care 78 mg/dL (70-110)
[2023-11-24 09:17] LABS: C Reactive Protein 62.8 mg/L (0.0-4.9)
[2023-11-24 09:55] LABS: Bilirubin Urine Neg (Negative); Blood Urine 3+ (Negative); Glucose Urine UA Norm (Normal); Ketones Urine 1+ (Negative); Nitrate Urine Negative (Negative); Protein Urine 3+ (Negative); Specific Gravity, Urine 1.015 (1.005-1.030); Urine Appearance Cloudy (CLEAR); Urine Color Dark Yellow (Yellow); Urobilinogen Urine Norm (Negative); pH Urine 5 (5-7)
[2023-11-24 09:56] LABS: Add Urine Microscopic? YES; Leukocyte Esterase Urine 2+ (Negative)
[2023-11-24] MEDS: piperacillin-tazobactam 3.375 GM in sodium chloride 0.9% (plus) 50 ML IV ×2 (09:58→21:37)
[2023-11-24] MEDS: pantoprazole 40 mg SDV IVP ×2 (09:58→21:37)
[2023-11-24 10:08] LABS: Glucose Point of Care 67 mg/dL (70-110)
[2023-11-24 10:18] LABS: Bacteria Urine 2+ /hpf; RBC Urine 15-25 /hpf (0-2); Transitional Epi Cells Urine 0-4 /hpf; WBC Urine >100 /hpf (0-5)
[2023-11-24 10:19] LABS: Add Urine Culture? Yes; Amorphous Sediment Urine 1+ /hpf; Mucus Urine TRACE /hpf
--- NOTE | 2023-11-24 11:22 | PC.SLP ---
Patient still not alert enough to attempt oral intake.
[2023-11-24 11:23] LABS: Glucose Point of Care 124 mg/dL (70-110)
[2023-11-24 11:42] LABS: Glucose Point of Care 70 mg/dL (70-110)
[2023-11-24 13:14] LABS: Glucose Point of Care 87 mg/dL (70-110)
--- NOTE | 2023-11-24 13:17 | P.PN_ITS ---
Subjective 2 Subjective: Patient was seen this morning, no family members at bedside, she is alert to person, not to place, not to time she can follow commands/is smiling for me, raising both arms, I cannot discern any focal weakness, more generalized weakness, she is still encephalopathic, responses are delayed, shehas no complaints, overnight, she is afebrile, normotensive, urine output 50 cc, 3.5 L out via hemodialysis Vitals/I&O/Wt Last Vital Signs Temp 97.8 F 11/24/23 12:00 Pulse 75 11/24/23 12:00 Resp 16 11/24/23 12:00 BP 119/63 11/24/23 12:00 Pulse Ox 96 11/24/23 12:00 O2 Del Method Nasal Cannula 11/24/23 12:00 O2 Flow Rate 2 11/23/23 20:00 11/23/23 11/24/23 11/24/23 22:59 06:59 14:59 Intake Total 125 / 675 50 / 725 132.5 / 132.5 Output Total 50 / 3550 Balance 125 / -2825 0 / -2825 132.5 / 132.5 Weight last 48 hrs Weight 72.575 kg Weight 75.1 kg Weight 76.374 kg Physical Exam 2 Const: COMMON NORMALS: no acute distress ORIENTATION/CONSCIOUSNESS: Yes awake, Yes oriented to person and Yes confused; not oriented to place and not oriented to time Resp: COMMON NORMALS: normal respiratory effort, No retractions and No use of accessory muscles AUSCULTATION: crackles Cardio: COMMON NORMALS: regular rate, regular rhythm, S1 normal heart sound present and S2 normal heart sound present RATE: regular rate RHYTHM: r egular rhythm HEART SOUNDS: S1 normal heart sound present and S2 normal heart sound present GI: COMMON NORMALS: Normal to inspection, nondistended, normoactive bowel sounds present and non-tender Extremity: COMMON NORMALS: no pedal edema NARRATIVE EXTREMITY EXAM: Has bilateral upper extremity swelling, no lower extremity edema Neuro: SENSORIUM/ORIENTATION: Yes oriented to person, No oriented to place and No oriented to time Psych: COMMON NORMALS: mental status grossly normal Data 11/24/23 05:50 11/24/23 05:50 Micro: Microbiology 11/24/23 11:32 Blood Culture - Preliminary Blood SPECIMEN COLLECTED 11/24/23 11:23 Blood Culture - Preliminary Blood SPECIMEN COLLECTED A&P Assessment and plan (1) HTN (hypertension): Hold blood pressure medications Qualifiers: Hypertension type: primary hypertension Qualified Code(s): I10 - Essential (primary) hypertension (2) Congestive heart failure: Qualifiers: Heart failure chronicity: acute on chronic Heart failure type: d iastolic Qualified Code(s): I50.33 - Acute on chronic diastolic (congestive) heart failure (3) CAD (coronary artery disease): (4) Atrial fibrillation: (5) Supratherapeutic INR: (6) Abdominal pain: (7) BERNADETTE (acute kidney injury): (8) Acute on chronic renal insufficiency: (9) CKD (chronic kidney disease) stage 3, GFR 30-59 ml/min: Qualifiers: Chronic kidney disease stage 3 subtype: stage 3b (GFR 30-44) Qualified Code(s): N18.32 - Chronic kidney disease, stage 3b (10) Urinary tract infection: Qualifiers: Hematuria presence: without hematuria Urinary tract infection type: a cute cystitis Qualified Code(s): N30.00 - Acute cystitis without hematuria (11) Staphylococcus aureus bacteremia: (12) BASIA (obstructive sleep apnea): (13) GI bleed: (14) Acute encephalopathy: (15) Fluid overload: (16) Acute respiratory failure: (17) Acute renal failure: (18) Metabolic acidosis: (19) Thrombocytopenia: (20) Uremia: (21) Hyperbilirubinemia: (22) Acute respiratory distress: Plan Plan Acute upper GI bleed ? Hemoglobin stable at 9 ? Status post 2 units of blood, 3 units FFP, 1 unit platelet ? Status post EGD, findings of duodenitis with contact bleeding, clips placed into the duodenum, portal hypertensive gastropathy, small hiatal hernia, nonbleeding esophageal varices ? Plan ? Keep n.p.o. ? Protonix 40 mg IV twice daily ? Carafate ? Monitor hemoglobin, INR, BMP closely -Transfuse for hemoglobin less than 7 ? Will consider FFP if INR is above 1.5-2 ? Monitor for bloody or black stools -monitor hemodynamics closely Metabolic acidosis, increased anion gap, resolving ? Secondary to acute blood loss anemia, potentially starvation ketosis, liver cirrhosis ? Plan ?Receiving dialysis ? Concerns for fluid overload Liver cirrhosis CT scan shows liver having a cirrhotic morphology, small to moderate volume ascites, with anasarca ? Etiology hepatitis panel within normal limits, had a cholecystectomy in August of this year, cannot do an MRCP given her pacemaker ? During her last hospitalization when I took care of her she also developed hyperbilirubinemia, with transaminitis, there was discussion with [facility], they recommended for patient to follow-up with hepatology as outpatient. In review of her records show that when she has had hospitalizations for CHF exacerbation she has had hyperbilirubinemia at that time also ? Thus I suspect her etiology of liver cirrhosis being cardiac cirrhosis, from severe heart failure ? With hyperbilirubinemia ? With thrombocytopenia ? With elevated INR ? Supratherapeutic INR ? Acute renal failure ? Hyperbilirubinemia ? Monitor closely ? Plan Thrombocytopenia, 77,000 ? She had thrombocytopenia during her last hospitalization secondary to Protonix ? Currently on Protonix for her GI bleed will continue monitor platelet count closely Acute hypoxic respiratory failure, 2 L ? Secondary to acute fluid overload, blood products ? History of systolic CHF, last echocardiogram October 21, 2023 showed a EF of 20% with severe diffuse hypokinesia of the left ventricle ? Plan ? Monitor respiratory status closely -Lackluster response to Bumex, Bumex drip -Status post dialysis catheter placement, currently receiving 2 session of dialysis -Monitor respiratory status closely will consider BiPAP based on clinical progress ? Monitor creatinine, monitor potassium Acute systolic CHF exacerbation ? As above Acute encephalopathy ? Likely multifactorial, from acute hypoxia, GI bleed, possible UTI, uremic encephalopathy ? Neurochecks ? N/A stroke scale ? Aspiration precaution Keep n.p.o. Uremic encephalopathy Acute renal failure on chronic kidney disease ? Likely multifactorial ? From GI bleed, ? Liver cirrhosis, possible hepatorenal syndrome? Possible cardiorenal syndrome given severely diminished EF ? Nephrology consulted ? Lackluster response to sodium bicarb, Bumex drip, Status post dialysis catheter placement second session of dialysis ? Hyperkalemia, Urinary tract infection ? Continue Zosyn ? Follow urine cultures ? Follow blood cultures History of Staph aureus bacteremia ? On IV cefazolin -Switch to Zosyn Atrial fibrillation, not on anticoagulation CAD, on Plavix, - Plavix currently on hold Cath in 2022 showed ?Conclusions 1. Critical in-stent restenosis of 2. SVG to diagonal artery prior stent. Status post successful revascularization with balloon angioplasty. Severe stenosis of SVG to diagonal artery proximal to prior stent. S/p successful revascularization with 1 stent.. 3. Patient has prior CABG. plan ? Serial EKGs consult once, telemetry monitoring neck ? The longer anticoagulation/antiplatelet therapy is held, the higher risk of adverse cardiovascular event, Certainly this is a difficult situation on the 1 hand she has a risk of coronary event as she her aspirin and Plavix are on hold, but on the other hand is a high risk of GI bleed for now as she is currently in for GI bleed will hold anticoagulation Patient continues to have severe protein calorie malnutrition, physical deconditioning, acute encephalopathy, poor appetite, continue to monitor mentation, white blood cell count increasing to 19.9, repeat UA, Attestations 2 Medical Necessity Statement*: Patient requires hospitalization for acute encephalopathy, uremic encephalopathy, acute renal failure, fluid overload, now with leukocytosis Diagnoses Primary hypertension I10 Hypertension type: primary hypertension Acute on chronic diastolic congestive heart failure I50.33 Heart failure chronicity: acute on chronic Heart failure type: diastolic CAD (coronary artery disease) I25.10 Atrial fibrillation I48.91 Supratherapeutic INR R79.1 Abdominal pain R10.9 BERNADETTE (acute kidney injury) N17.9 Acute on chronic renal insufficiency N28.9; N18.9 Stage 3b chronic kidney disease N18.32 Chronic kidney disease stage 3 subtype: stage 3b (GFR 30-44) Urinary tract infection N30.00 Hematuria presence: without hematuria Urinary tract infection type: acute cystitis Staphylococcus aureus bacteremia R78.81; B95.61 BASIA (obstructive sleep apnea) G47.33 GI bleed K92.2 Acute encephalopathy G93.40 Fluid overload E87.70 Acute respiratory failure J96.00 Acute renal failure N17.9 Metabolic acidosis E87.20 Thrombocytopenia D69.6 Uremia N19 Hyperbilirubinemia E80.6 Acute respiratory distress R06.03
[2023-11-24 14:12] LABS: Glucose Point of Care 86 mg/dL (70-110)
[2023-11-24 16:52] LABS: Glucose Point of Care 69 mg/dL (70-110)
--- NOTE | 2023-11-24 17:59 | PM.PN ---
Subjective Subjective: no new complaints Medications: Reviewed: Yes Vitals/I&O/Wt Last Vital Signs Temp 98.3 F 11/24/23 16:00 Pulse 76 11/24/23 16:00 Resp 16 11/24/23 16:00 BP 133/57 11/24/23 16:00 Pulse Ox 98 11/24/23 16:00 O2 Del Method Nasal Cannula 11/24/23 16:00 O2 Flow Rate 2 11/23/23 20:00 11/24/23 11/24/23 11/24/23 06:59 14:59 22:59 Intake Total 50 / 725 175.0 / 175.0 Output Total 50 / 3550 Balance 0 / -2825 175.0 / 175.0 Weight last 48 hrs Weight 72.575 kg Weight 75.1 kg Weight 76.374 kg Physical Exam Narrative: Elderly ill-appearing lady in bed hemodynamically stable. using nc 02 HEENT normocephalic/atraumatic. Neck is supple, rt sided line Lungs dull bases. Heart irregular with heart rate control. Abdomen soft positive bowel sounds. Extremities bilateral 1-2+ leg edema. Neuro lethargic however awakens follows simple commands . Data 11/24/23 05:50 11/24/23 05:50 Micro: Microbiology 11/24/23 11:32 Blood Culture - Preliminary Blood SPECIMEN COLLECTED 11/24/23 11:23 Blood Culture - Preliminary Blood SPECIMEN COLLECTED A&P Assessment and plan (1) Acute on chronic renal insufficiency: 73-year-old lady history of heart failure reduced EF, CABG, PCI, question pulmonary embolism, hypertension, obstructive sleep apnea, A-fib, peripheral arterial disease, atrophic right kidney, liver cirrhosis, recent Staph aureus bacteremia 1. Patient here with GI bleed. Status post endoscopy yesterday with nonbleeding varices and portal hypertension. 2. Acute kidney injury in this patient baseline creatinine was normal 1 year ago was 0.61 up to 1.1 mg/dL September 2023. Creatinine of 2.1 mg/dL 3 weeks ago when she left the hospital and most of October. Now with a creatinine of 5 mg/dL. Imaging without hydronephrosis however she does have an atrophic right kidney. Urinalysis reviewed 1+ protein she does have 1+ ketones 3+ blood, leukocytes 2+ 25-40 white cells question of UTI on antibiotics. Patient has CT scan showing un changes atrophy of the right kidney with diffuse cortical thinning some simple cyst no hydronephrosis Differential diagnosis in this patient is: a ATN, risk would be being on diuretics,not eating well, having a GI bleed, and likely having some hypotension the patient with heart failure reduced EF and having an atrophic right kidney at baseline b infection related GN though does not have significant hematuria - C. interstitial nephritis from antibiotics e. Less likely cardiorenal syndrome though can be contributing. Also note patient received contrast - . Patient is at high risk for progression of acute kidney injury and is oliguric. 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 Hyperkalemia likely from acute kidney injury-has improved.. 5. Anemia from GI bleed and also from chronic disease. Negative SPEP. Can check B12 and folate level. Consider giving more blood. 6. Elevated TSH consider giving levothyroxine as per medicine. 8. Elevated BNP patient with heart failure reduced EF. per cardiology. ef appears to have improved to 30% and moderate MR Patient seen and examined with the patient's nurse The patient was seen and examined using A/V equipment. Plan See above. Attestations Medical Necessity Statement*: per shashank Coding Level of Care Code Acute Code for Chg Fwd Diagnoses Acute on chronic renal insufficiency N28.9; N18.9
[2023-11-24] MEDS: dextrose 10% 1,000 ML 50 ML IV (18:16)
[2023-11-24 18:55] LABS: Glucose Point of Care 81 mg/dL (70-110)
[2023-11-24 20:01] LABS: Glucose Point of Care 84 mg/dL (70-110)
[2023-11-24] MEDS: morphine 4 mg/mL SDV 1 mL 2 MG IVP (20:03)
--- NOTE | 2023-11-24 22:19 | ECG_ITS ---
[facility] Test Date: 2023-11-24 Pat Name: Essie Alejandre Department: Room: 256 Gender: Female [employer]: : [id number] Requested By: Nevaeh Bates Order Number: [id number] Jj MD: Ghulam Allen M.D. Measurements Intervals [place] Rate: 80 P: 0 MD: 0 QRS: 112 QRSD: 154 T: -52 QT: 433 QTc: 500 Interpretive Statements ELECTRONIC VENTRICULAR PACEMAKER ABNORMAL RHYTHM ECG Compared to ECG 11/21/2023 00:15:37 No significant changes Electronically Signed On 11-24-2023 22:24:50 CDT by Ghulam Allen M.D. [email or web address]
--- NOTE | 2023-11-24 22:30 | XRR_ITS ---
PROCEDURE INFORMATION: Exam: XR Chest Exam date and time: 11/24/2023 10:44 PM Age: 73 years old Clinical indication: Shortness of breath; Prior surgery; Surgery date: 6+ months; Surgery type: Pacemaker/open heart/stents/aortic valve TECHNIQUE: Imaging protocol: Radiologic exam of the chest. Views: 1 view. COMPARISON: CR XR chest 1V portable [id number] 11/24/2023 1:14 PM FINDINGS: Tubes, catheters and devices: Left chest wall pacer with unchanged leads. Lungs: Bilateral hilar prominence similar to prior comparisons. Interstitial lung coarsening similar to prior comparisons, no focal consolidation. Suggestion of infiltrate of the retrocardiac area which is similar to prior comparisons. Pleural spaces: Unremarkable. No pleural effusion. No pneumothorax. Heart/Mediastinum: Postprocedural changes of the cardiomediastinal silhouette. Vasculature: Atherosclerotic disease of the aortic arch. Bones/joints: Status post sternotomy. Degenerative changes of the visualized osseous structures. XR/XR chest 1V portable [id number] IMPRESSION: Stable examination.
[2023-11-25] VITALS (12 sets, daily range): BP systolic 102–135; BP diastolic 50–87; PULSE 74–88; RESP 16–22; TEMP 36.4–37.2; O2SAT 97–100
[2023-11-25 05:52] LABS: Basophils % 0.1 %; Hematocrit 26.7 % (36-47); Lymphocytes # 0.4 10^3/uL (0.8-4.8); Lymphocytes % 1.7 %; Mean Corpuscular HGB Conc 32.6 g/dL (30-55); Mean Corpuscular Hemoglobin 31.9 pg (27-33); Mean Corpuscular Volume 97.8 fl (85-98); Mean Platelet Volume 11.3 fL (7.4-10.4); Neutrophils # 19.35 10^3/uL (1.8-7.7); Nucleated Red Blood Cells # 0.1 /100WBC; Nucleated Red Blood Cells % 0.3 %; Platelet Count 81 10^3/cmm (157-399); Red Blood Count 2.73 10^6/uL (3.85-5.65); Red Cell Distribution Width 22.4 % (12.1-15.1); White Blood Count 22.24 10^3/uL (3.29-11.43)
[2023-11-25 06:39] LABS: Anion Gap 20.6 (5-19); Blood Urea Nitrogen 45 mg/dL (8-23); Carbon Dioxide 25 mmol/L (22-29); Chloride 97 mmol/L (98-107); Creatinine Clr Calc Pharmacy 15.2836; Glucose 127 mg/dL (65-115); Osmolality Calculated 301 mOsm/kg (285-295); Potassium 3.6 mmol/L (3.5-5.1); Sodium 139 mmol/L (136-145)
[2023-11-25 06:40] LABS: Alanine Aminotransferase < 5 U/L (0-33); Albumin Level 3.2 g/dL (3.5-5.2); Alkaline Phosphatase 247 U/L (35-105); Aspartate Amino Transferase 41 U/L (0-32); Calcium 8.6 mg/dL (8.5-10.5); Globulin 2.8 g/dL (1.3-4.6); Magnesium 1.8 mg/dL (1.7-2.3); Phosphorus 2.8 mg/dL (2.5-4.5); Total Bilirubin 2.1 mg/dL (0.15-1.2)
--- NOTE | 2023-11-25 10:51 | P.PN_ITS ---
Subjective 2 Subjective: remains lethargic Medications: Reviewed: Yes Vitals/I&O/Wt Last Vital Signs Temp 97.9 F 11/25/23 07:53 Pulse 87 11/25/23 08:47 Resp 16 11/25/23 07:53 BP 129/87 11/25/23 07:53 Pulse Ox 99 11/25/23 08:47 O2 Del Method Nasal Cannula 11/25/23 08:47 O2 Flow Rate 2 11/25/23 08:47 11/24/23 11/25/23 11/25/23 22:59 06:59 14:59 Intake Total 0 / 175.0 50 / 225.0 Output Total 50 / 50 0 / 50 Balance -50 / 125.0 50 / 175.0 Weight last 48 hrs Weight 73.981 kg Weight 72.575 kg Weight 75.1 kg Physical Exam 2 Narrative: Elderly ill-appearing lady in bed hemodynamically stable. using nc 02 HEENT normocephalic/atraumatic. Neck is supple, rt sided line Lungs dull bases. Heart irregular with heart rate control. Abdomen soft positive bowel sounds. Extremities bilateral 1-2+ leg edema. Neuro lethargic however awakens follows simple commands . Data 11/26/23 02:43 11/26/23 02:43 Micro: Microbiology 11/24/23 09:39 Urine Culture - Preliminary Urine,Clean Catch 11/19/23 19:00 Blood Culture - Final Blood NO GROWTH AFTER 5 DAYS 11/19/23 18:34 Blood Culture - Final Blood NO GROWTH AFTER 5 DAYS 11/24/23 11:32 Blood Culture - Preliminary Blood SPECIMEN COLLECTED 11/24/23 11:23 Blood Culture - Preliminary Blood SPECIMEN COLLECTED A&P Assessment and plan (1) Acute on chronic renal insufficiency: 73-year-old lady history of heart failure reduced EF, CABG, PCI, question pulmonary embolism, hypertension, obstructive sleep apnea, A-fib, peripheral arterial disease, atrophic right kidney, liver cirrhosis, recent Staph aureus bacteremia 1. Patient here with GI bleed. Status post endoscopy yesterday with nonbleeding varices and portal hypertension. 2. Acute kidney injury in this patient baseline creatinine was normal 1 year ago was 0.61 up to 1.1 mg/dL September 2023. Creatinine of 2.1 mg/dL 3 weeks ago when she left the hospital and most of October. Now with a creatinine of 5 mg/dL. Imaging without hydronephrosis however she does have an atrophic right kidney. Urinalysis reviewed 1+ protein she does have 1+ ketones 3+ blood, leukocytes 2+ 25-40 white cells question of UTI on antibiotics. Patient has CT scan showing un changes atrophy of the right kidney with diffuse cortical thinning some simple cyst no hydronephrosis Differential diagnosis in this patient is: a ATN, risk would be being on diuretics,not eating well, having a GI bleed, and likely having some hypotension the patient with heart failure reduced EF and having an atrophic right kidney at baseline b infection related GN though does not have significant hematuria - C. interstitial nephritis from antibiotics e. Less likely cardiorenal syndrome though can be contributing. Also note patient received contrast - . Patient is at high risk for progression of acute kidney injury and is oliguric. First HD Tuesday , No renal recovery yet , plan for HD today Pt likely is not a good usp hD candidate , will d/w family 3.metabolic acidosis is improved 4. Hyperkalemia likely from acute kidney injury-has improved.. 5. Anemia from GI bleed and also from chronic disease. Negative SPEP. Can check B12 and folate level. Consider giving more blood. 6. Elevated TSH consider giving levothyroxine as per medicine. 8. Elevated BNP patient with heart failure reduced EF. per cardiology. ef appears to have improved to 30% and moderate MR Patient seen and examined with the patient's nurse The patient was seen and examined using A/V equipment. Plan See above. Attestations 2 Medical Necessity Statement*: per medicine Coding Level of Care Code Acute Code for Chg Fwd Diagnoses Acute on chronic renal insufficiency N28.9; N18.9
--- NOTE | 2023-11-25 10:56 | PC.HD ---
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
--- NOTE | 2023-11-25 11:41 | PC.SOCIAL ---
IMM Updated Updated pt & family on IMM. No questions voiced. Provided pt a copy. Initialed, dated, & timed copy in chart.
[2023-11-25] MEDS: vancomycin 750 MG in sodium chloride 0.9% 250 ML 250 MG IV (14:07)
[2023-11-25] MEDS: pantoprazole 40 mg SDV IVP ×2 (15:00→21:58)
[2023-11-25] MEDS: heparin, porcine 1,000 unit/mL INJ 10 mL 1000 UNIT IV (15:05)
[2023-11-25] MEDS: heparin, porcine 1,000 unit/mL INJ 10 mL 10000 UNIT INTRACATH (15:05)
[2023-11-25] MEDS: piperacillin-tazobactam 3.375 GM in sodium chloride 0.9% (plus) 50 ML IV ×2 (15:13→21:59)
--- NOTE | 2023-11-25 16:08 | P.PN_ITS ---
Subjective 2 Subjective: Patient was seen this morning, she is alert to person, to place, not to time, she is able to follow commands such as smiling for me, squeezing my fingers bilaterally moving her legs, she is much more alert and awake compared to yesterday, she tells me that she is hungry, she really does not have any pain complaints denies any chest pain, denies any shortness of breath, she is receiving dialysis, no family members are at bedside Vitals/I&O/Wt Last Vital Signs Temp 97.5 F L 11/25/23 15:30 Pulse 74 11/25/23 15:30 Resp 20 H 11/25/23 15:30 BP 135/59 11/25/23 15:30 Pulse Ox 97 11/25/23 15:30 O2 Del Method Nasal Cannula 11/25/23 15:30 O2 Flow Rate 2 11/25/23 08:47 11/25/23 11/25/23 11/25/23 06:59 14:59 22:59 Intake Total 50 / 225.0 500 / 500 1250 / 1750 Output Total 0 / 50 1979 / 1979 Balance 50 / 175.0 -1480 / -1480 1250 / -230 Weight last 48 hrs Weight 75.6 kg Weight 73.981 kg Weight 72.575 kg Physical Exam 2 Const: COMMON NORMALS: no acute distress ORIENTATION/CONSCIOUSNESS: Yes awake, Yes oriented to person, Yes oriented to place and Yes confused; not oriented to time Resp: COMMON NORMALS: normal respiratory effort, No retractions, No use of accessory muscles and clear to auscultation bilaterally AUSCULTATION: clear to auscultation bilaterally Cardio: COMMON NORMALS: regular rate, regular rhythm, S1 normal heart sound present and S2 normal heart sound present RATE: regular rate RHYTHM: r egular rhythm HEART SOUNDS: S1 normal heart sound present and S2 normal heart sound present GI: COMMON NORMALS: Normal to inspection, nondistended, normoactive bowel sounds present and non-tender Extremity: COMMON NORMALS: no pedal edema Neuro: SENSORIUM/ORIENTATION: Yes oriented to person, Yes oriented to place and No oriented to time Psych: COMMON NORMALS: mental status grossly normal Data 11/25/23 05:23 11/25/23 05:23 Micro: Microbiology 11/24/23 11:23 Blood Culture - Preliminary Blood NEGATIVE TO DATE 11/24/23 11:32 Blood Culture - Preliminary Blood NEGATIVE TO DATE 11/24/23 09:39 Urine Culture - Preliminary Urine,Clean Catch 11/19/23 19:00 Blood Culture - Final Blood NO GROWTH AFTER 5 DAYS 11/19/23 18:34 Blood Culture - Final Blood NO GROWTH AFTER 5 DAYS A&P Assessment and plan (1) HTN (hypertension): Hold blood pressure medications Qualifiers: Hypertension type: primary hypertension Qualified Code(s): I10 - Essential (primary) hypertension (2) Congestive heart failure: Qualifiers: Heart failure chronicity: acute on chronic Heart failure type: d iastolic Qualified Code(s): I50.33 - Acute on chronic diastolic (congestive) heart failure (3) CAD (coronary artery disease): (4) Atrial fibrillation: (5) Supratherapeutic INR: (6) Abdominal pain: (7) BERNADETTE (acute kidney injury): (8) Acute on chronic renal insufficiency: (9) CKD (chronic kidney disease) stage 3, GFR 30-59 ml/min: Qualifiers: Chronic kidney disease stage 3 subtype: stage 3b (GFR 30-44) Qualified Code(s): N18.32 - Chronic kidney disease, stage 3b (10) Urinary tract infection: Qualifiers: Hematuria presence: without hematuria Urinary tract infection type: a cute cystitis Qualified Code(s): N30.00 - Acute cystitis without hematuria (11) Staphylococcus aureus bacteremia: (12) BASIA (obstructive sleep apnea): (13) GI bleed: (14) Acute encephalopathy: (15) Fluid overload: (16) Acute respiratory failure: (17) Acute renal failure: (18) Metabolic acidosis: (19) Thrombocytopenia: (20) Uremia: (21) Hyperbilirubinemia: (22) Acute respiratory distress: Plan Plan Acute upper GI bleed ? Hemoglobin stable at 9 ? Status post 2 units of blood, 3 units FFP, 1 unit platelet ? Status post EGD, findings of duodenitis with contact bleeding, clips placed into the duodenum, portal hypertensive gastropathy, small hiatal hernia, nonbleeding esophageal varices ? Plan ? Will advance diet if her mentation improves ? Protonix 40 mg IV twice daily ? Carafate ? Monitor hemoglobin, INR, BMP closely -Transfuse for hemoglobin less than 7 ? Will consider FFP if INR is above 1.5-2 ? Monitor for bloody or black stools -monitor hemodynamics closely Metabolic acidosis, increased anion gap, resolving ? Secondary to acute blood loss anemia, potentially starvation ketosis, liver cirrhosis ? Plan ?Receiving dialysis ? Concerns for fluid overload Liver cirrhosis CT scan shows liver having a cirrhotic morphology, small to moderate volume ascites, with anasarca ? Etiology hepatitis panel within normal limits, had a cholecystectomy in August of this year, cannot do an MRCP given her pacemaker ? During her last hospitalization when I took care of her she also developed hyperbilirubinemia, with transaminitis, there was discussion with [facility], they recommended for patient to follow-up with hepatology as outpatient. In review of her records show that when she has had hospitalizations for CHF exacerbation she has had hyperbilirubinemia at that time also ? Thus I suspect her etiology of liver cirrhosis being cardiac cirrhosis, from severe heart failure ? With hyperbilirubinemia ? With thrombocytopenia ? With elevated INR ? Supratherapeutic INR ? Acute renal failure ? Hyperbilirubinemia ? Monitor closely ? Plan Thrombocytopenia, 77,000 ? She had thrombocytopenia during her last hospitalization secondary to Protonix ? Currently on Protonix for her GI bleed will continue monitor platelet count closely Acute hypoxic respiratory failure, 2 L ? Secondary to acute fluid overload, blood products ? History of systolic CHF, last echocardiogram October 21, 2023 showed a EF of 20% with severe diffuse hypokinesia of the left ventricle ? Plan ? Monitor respiratory status closely -Lackluster response to Bumex, Bumex drip -Status post dialysis catheter placement, currently receiving 2 session of dialysis -Monitor respiratory status closely will consider BiPAP based on clinical progress ? Monitor creatinine, monitor potassium Acute systolic CHF exacerbation ? As above Acute encephalopathy ? Likely multifactorial, from acute hypoxia, GI bleed, possible UTI, uremic encephalopathy ? Neurochecks ? N/A stroke scale ? Aspiration precaution Keep n.p.o. Uremic encephalopathy Acute renal failure on chronic kidney disease ? Likely multifactorial ? From GI bleed, ? Liver cirrhosis, possible hepatorenal syndrome? Possible cardiorenal syndrome given severely diminished EF ? Nephrology consulted ? Lackluster response to sodium bicarb, Bumex drip, Status post dialysis catheter placement second session of dialysis ? Hyperkalemia, Urinary tract infection ? Continue Zosyn ? Follow urine cultures ? Follow blood cultures History of Staph aureus bacteremia ? On IV cefazolin -Switch to Zosyn Atrial fibrillation, not on anticoagulation CAD, on Plavix, - Plavix currently on hold Cath in 2022 showed ?Conclusions 1. Critical in-stent restenosis of 2. SVG to diagonal artery prior stent. Status post successful revascularization with balloon angioplasty. Severe stenosis of SVG to diagonal artery proximal to prior stent. S/p successful revascularization with 1 stent.. 3. Patient has prior CABG. plan ? Serial EKGs consult once, telemetry monitoring neck ? The longer anticoagulation/antiplatelet therapy is held, the higher risk of adverse cardiovascular event, Certainly this is a difficult situation on the 1 hand she has a risk of coronary event as she her aspirin and Plavix are on hold, but on the other hand is a high risk of GI bleed for now as she is currently in for GI bleed will hold anticoagulation Urine output remains lackluster, receiving dialysis today, continues to decondition, continues to be encephalopathic but much more alert and awake today, will see if speech therapy can work on swallowing evaluation, her white blood cell count is up to 22,000 added on vancomycin, Attestations 2 Medical Necessity Statement*: Patient requires hospitalization for acute renal failure, requiring inpatient dialysis encephalopathy, now with leukocytosis requiring broadening of antibiotic coverage continues to be deconditioned, Diagnoses Primary hypertension I10 Hypertension type: primary hypertension Acute on chronic diastolic congestive heart failure I50.33 Heart failure chronicity: acute on chronic Heart failure type: diastolic CAD (coronary artery disease) I25.10 Atrial fibrillation I48.91 Supratherapeutic INR R79.1 Abdominal pain R10.9 BERNADETTE (acute kidney injury) N17.9 Acute on chronic renal insufficiency N28.9; N18.9 Stage 3b chronic kidney disease N18.32 Chronic kidney disease stage 3 subtype: stage 3b (GFR 30-44) Urinary tract infection N30.00 Hematuria presence: without hematuria Urinary tract infection type: acute cystitis Staphylococcus aureus bacteremia R78.81; B95.61 BASIA (obstructive sleep apnea) G47.33 GI bleed K92.2 Acute encephalopathy G93.40 Fluid overload E87.70 Acute respiratory failure J96.00 Acute renal failure N17.9 Metabolic acidosis E87.20 Thrombocytopenia D69.6 Uremia N19 Hyperbilirubinemia E80.6 Acute respiratory distress R06.03
[2023-11-25] MEDS: dextrose 10% 1,000 ML 50 ML IV (20:15)
--- NOTE | 2023-11-25 23:58 | ECG_ITS ---
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 Measurements Intervals [place] Rate: 75 P: 0 [place]: 0 QRS: -63 QRSD: 152 T: 113 QT: 452 QTc: 505 Interpretive Statements ELECTRONIC VENTRICULAR PACEMAKER ABNORMAL RHYTHM ECG Compared to ECG 11/24/2023 22:22:19 No significant changes Electronically Signed On 11-26-2023 9:04:20 CDT by Maurisio Hammond M.D. [id number]
[2023-11-26] VITALS (10 sets, daily range): BP systolic 118–156; BP diastolic 61–77; PULSE 74–93; RESP 15–18; TEMP 36.3–36.7; O2SAT 91–100
[2023-11-26 01:35] LABS: Troponin(5th) Baseline 307 ng/L (0-10)
--- NOTE | 2023-11-26 02:22 | ECG_ITS ---
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 Measurements Intervals [place] Rate: 82 P: 0 [place]: 0 QRS: -63 QRSD: 169 T: 114 QT: 456 QTc: 535 Interpretive Statements ELECTRONIC VENTRICULAR PACEMAKER ABNORMAL RHYTHM ECG Compared to ECG 11/26/2023 00:05:13 No significant changes Electronically Signed On 11-26-2023 9:05:42 CDT by Maurisio Hammond M.D. [id number]
[2023-11-26 03:15] LABS: Beta-Hydroxybutyrate 0.66 mmol/L
[2023-11-26 03:23] LABS: Basophils % 0.2 %; Eosinophils % 0.1 %; Hematocrit 27.9 % (36-47); Lymphocytes # 0.9 10^3/uL (0.8-4.8); Lymphocytes % 4.6 %; Mean Corpuscular HGB Conc 32.3 g/dL (30-55); Mean Corpuscular Hemoglobin 31.8 pg (27-33); Mean Corpuscular Volume 98.6 fl (85-98); Mean Platelet Volume 11.2 fL (7.4-10.4); Monocytes # 1.5 10^3/uL (0.2-0.9); Monocytes % 7.8 %; Neutrophils # 16.59 10^3/uL (1.8-7.7); Neutrophils % 84.6 %; Nucleated Red Blood Cells # 0.1 /100WBC; Nucleated Red Blood Cells % 0.4 %; Platelet Count 91 10^3/cmm (157-399); Red Blood Count 2.83 10^6/uL (3.85-5.65); Red Cell Distribution Width 22.5 % (12.1-15.1); White Blood Count 19.59 10^3/uL (3.29-11.43)
[2023-11-26 03:41] LABS: Alanine Aminotransferase < 5 U/L (0-33); Albumin Level 3.3 g/dL (3.5-5.2); Alkaline Phosphatase 232 U/L (35-105); Blood Urea Nitrogen 23 mg/dL (8-23); C Reactive Protein 136.2 mg/L (0.0-4.9); Calcium 8.7 mg/dL (8.5-10.5); Carbon Dioxide 26 mmol/L (22-29); Chloride 98 mmol/L (98-107); Creatinine Clr Calc Pharmacy 21.8716; Globulin 2.7 g/dL (1.3-4.6); Glucose 123 mg/dL (65-115); Magnesium 1.9 mg/dL (1.7-2.3); Osmolality Calculated 293 mOsm/kg (285-295); Sodium 139 mmol/L (136-145)
[2023-11-26 03:42] LABS: Anion Gap 18.8 (5-19); Aspartate Amino Transferase 47 U/L (0-32); Potassium 3.8 mmol/L (3.5-5.1); Troponin 5 2HR Delta -6.3 ABS# (0-10)
[2023-11-26 03:43] LABS: Troponin 5 2HR 300.7 ng/L (0-10)
[2023-11-26 03:48] LABS: Procalcitonin 0.53 ng/mL (0-0.5)
--- NOTE | 2023-11-26 06:22 | ECG_ITS ---
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 Measurements Intervals [place] Rate: 83 P: 0 [place]: 0 QRS: -64 QRSD: 166 T: 118 QT: 455 QTc: 538 Interpretive Statements ELECTRONIC VENTRICULAR PACEMAKER ABNORMAL RHYTHM ECG Compared to ECG 11/26/2023 04:03:50 No significant changes Electronically Signed On 11-26-2023 9:05:55 CDT by Maurisio Hammond M.D. [id number]
[2023-11-26 07:24] LABS: Troponin 5 6HR 305.4 ng/L (0-10); Troponin 5 6HR Delta -1.6 ng/L (0-12)
[2023-11-26] MEDS: sucralfate 1 gm/10 mL Oral Liq UDC PO ×2 (08:48→14:12)
[2023-11-26] MEDS: pantoprazole 40 mg SDV IVP ×2 (10:41→22:03)
[2023-11-26] MEDS: piperacillin-tazobactam 3.375 GM in sodium chloride 0.9% (plus) 50 ML IV ×2 (10:42→22:04)
[2023-11-26] MEDS: HYDROmorphone 1 mg/mL INJ 1 mL 0.5 MG IVP (11:19)
--- NOTE | 2023-11-26 14:32 | P.PN_ITS ---
Subjective 2 Subjective: Patient was seen this morning, urine output has been lackluster for the last 24 hours, she is afebrile, normotensive, on 4 L she had complaints of chest pain overnight, troponin series was monitored she was seen this morning she is alert to person, she does recognize me, she is know that she is in the hospital but she is not oriented to time she can follow commands such as smiling for me, squeezing my fingers, moving her feet, but does report generalized weakness, she reports that she is hungry, at other times she becomes encephalopathic during my conversation with her, does not make sense, I cannot discern any focal weakness no slurring of words, Vitals/I&O/Wt Last Vital Signs Temp 97.4 F L 11/26/23 11:49 Pulse 85 11/26/23 14:00 Resp 15 11/26/23 11:49 BP 123/63 11/26/23 11:49 Pulse Ox 96 11/26/23 11:49 O2 Del Method Nasal Cannula 11/26/23 11:49 O2 Flow Rate 4 11/26/23 11:49 11/25/23 11/26/23 11/26/23 22:59 06:59 14:59 Intake Total 1300 / 1800 50 / 1850 Output Total 1979 Balance 1300 / -180 50 / -130 Weight last 48 hrs Weight 146.828 kg Weight 75.6 kg Weight 73.981 kg Physical Exam 2 Const: COMMON NORMALS: no acute distress EXAM LIMITATIONS: altered mental status GENERAL APPEARANCE: ill appearing and frail appearing O RIENTATION/CONSCIOUSNESS: Yes awake, Yes oriented to person and Yes oriented to place; not oriented to time Resp: COMMON NORMALS: normal respiratory effort, No retractions and No use of accessory muscles AUSCULTATION: wheezes Cardio: COMMON NORMALS: regular rate, regular rhythm, S1 normal heart sound present and S2 normal heart sound present RATE: regular rate RHYTHM: r egular rhythm HEART SOUNDS: S1 normal heart sound present and S2 normal heart sound present GI: COMMON NORMALS: Normal to inspection, nondistended, normoactive bowel sounds present and non-tender Extremity: COMMON NORMALS: no pedal edema NARRATIVE EXTREMITY EXAM: Anasarca Neuro: SENSORIUM/ORIENTATION: Yes oriented to person, Yes oriented to place and No oriented to time Data 11/26/23 02:43 11/26/23 02:43 Micro: Microbiology 11/24/23 09:39 Urine Culture - Final Urine,Clean Catch 11/24/23 11:23 Blood Culture - Preliminary Blood NEGATIVE TO DATE 11/24/23 11:32 Blood Culture - Preliminary Blood NEGATIVE TO DATE A&P Assessment and plan (1) HTN (hypertension): Hold blood pressure medications Qualifiers: Hypertension type: primary hypertension Qualified Code(s): I10 - Essential (primary) hypertension (2) Congestive heart failure: Qualifiers: Heart failure chronicity: acute on chronic Heart failure type: d iastolic Qualified Code(s): I50.33 - Acute on chronic diastolic (congestive) heart failure (3) CAD (coronary artery disease): (4) Atrial fibrillation: (5) Supratherapeutic INR: (6) Abdominal pain: (7) BERNADETTE (acute kidney injury): (8) Acute on chronic renal insufficiency: (9) CKD (chronic kidney disease) stage 3, GFR 30-59 ml/min: Qualifiers: Chronic kidney disease stage 3 subtype: stage 3b (GFR 30-44) Qualified Code(s): N18.32 - Chronic kidney disease, stage 3b (10) Urinary tract infection: Qualifiers: Hematuria presence: without hematuria Urinary tract infection type: a cute cystitis Qualified Code(s): N30.00 - Acute cystitis without hematuria (11) Staphylococcus aureus bacteremia: (12) BASIA (obstructive sleep apnea): (13) GI bleed: (14) Acute encephalopathy: (15) Fluid overload: (16) Acute respiratory failure: (17) Acute renal failure: (18) Metabolic acidosis: (19) Thrombocytopenia: (20) Uremia: (21) Hyperbilirubinemia: (22) Acute respiratory distress: Plan Plan Acute upper GI bleed ? Hemoglobin stable at 9 ? Status post 2 units of blood, 3 units FFP, 1 unit platelet ? Status post EGD, findings of duodenitis with contact bleeding, clips placed into the duodenum, portal hypertensive gastropathy, small hiatal hernia, nonbleeding esophageal varices ? Plan ? Will advance diet if her mentation improves ? Protonix 40 mg IV twice daily ? Carafate ? Monitor hemoglobin, INR, BMP closely -Transfuse for hemoglobin less than 7 ? Will consider FFP if INR is above 1.5-2 ? Monitor for bloody or black stools -monitor hemodynamics closely Metabolic acidosis, increased anion gap, resolving ? Secondary to acute blood loss anemia, potentially starvation ketosis, liver cirrhosis ? Plan ?Receiving dialysis ? Concerns for fluid overload Liver cirrhosis CT scan shows liver having a cirrhotic morphology, small to moderate volume ascites, with anasarca ? Etiology hepatitis panel within normal limits, had a cholecystectomy in August of this year, cannot do an MRCP given her pacemaker ? During her last hospitalization when I took care of her she also developed hyperbilirubinemia, with transaminitis, there was discussion with [facility], they recommended for patient to follow-up with hepatology as outpatient. In review of her records show that when she has had hospitalizations for CHF exacerbation she has had hyperbilirubinemia at that time also ? Thus I suspect her etiology of liver cirrhosis being cardiac cirrhosis, from severe heart failure ? With hyperbilirubinemia ? With thrombocytopenia ? With elevated INR ? Supratherapeutic INR ? Acute renal failure ? Hyperbilirubinemia ? Monitor closely ? Plan Thrombocytopenia, 77,000 ? She had thrombocytopenia during her last hospitalization secondary to Protonix ? Currently on Protonix for her GI bleed will continue monitor platelet count closely Acute hypoxic respiratory failure, 4 L ? Secondary to acute fluid overload, blood products ? History of systolic CHF, last echocardiogram October 21, 2023 showed a EF of 20% with severe diffuse hypokinesia of the left ventricle ? Plan ? Monitor respiratory status closely -Lackluster response to Bumex, Bumex drip -Status post dialysis catheter placement, currently receiving 2 session of dialysis -Monitor respiratory status closely will consider BiPAP based on clinical progress ? Monitor creatinine, monitor potassium Acute systolic CHF exacerbation ? As above Acute encephalopathy ? Likely multifactorial, from acute hypoxia, GI bleed, possible UTI, uremic encephalopathy ? Neurochecks ? N/A stroke scale ? Aspiration precaution Keep n.p.o. Uremic encephalopathy Acute renal failure on chronic kidney disease ? Likely multifactorial ? From GI bleed, ? Liver cirrhosis, possible hepatorenal syndrome? Possible cardiorenal syndrome given severely diminished EF ? Nephrology consulted ? Lackluster response to sodium bicarb, Bumex drip, Status post dialysis catheter placement second session of dialysis ? Hyperkalemia, Urinary tract infection ? Continue Zosyn ? Follow urine cultures ? Follow blood cultures History of Staph aureus bacteremia ? On IV cefazolin -Switch to Zosyn Atrial fibrillation, not on anticoagulation CAD, on Plavix, - Plavix currently on hold Cath in 2022 showed ?Conclusions 1. Critical in-stent restenosis of 2. SVG to diagonal artery prior stent. Status post successful revascularization with balloon angioplasty. Severe stenosis of SVG to diagonal artery proximal to prior stent. S/p successful revascularization with 1 stent.. 3. Patient has prior CABG. plan ? Serial EKGs consult once, telemetry monitoring neck ? The longer anticoagulation/antiplatelet therapy is held, the higher risk of adverse cardiovascular event, Certainly this is a difficult situation on the 1 hand she has a risk of coronary event as she her aspirin and Plavix are on hold, but on the other hand is a high risk of GI bleed for now as she is currently in for GI bleed will hold anticoagulation Continues to have encephalopathy, although improved compared to the last 48 hours, continues to have deconditioning, poor appetite, high aspiration risk, has remained in bed, will have nursing staff try to feed her see if she can feed she remains anticoagulant therapy, antiplatelet therapy due to high GI risk bleed, had complaints of chest pain overnight troponins over 300, will monitor, urine output remains lackluster at 0 in the last 24 hours she is a poor candidate for dialysis, due WBC 19.59 added on vancomycin yesterday, on 4 L Attestations 2 Medical Necessity Statement*: Patient requires hospitalization for acute encephalopathy, leukocytosis, end- stage renal disease, fluid overload, deconditioning, acute hypoxic respiratory failure Diagnoses Primary hypertension I10 Hypertension type: primary hypertension Acute on chronic diastolic congestive heart failure I50.33 Heart failure chronicity: acute on chronic Heart failure type: diastolic CAD (coronary artery disease) I25.10 Atrial fibrillation I48.91 Supratherapeutic INR R79.1 Abdominal pain R10.9 BERNADETTE (acute kidney injury) N17.9 Acute on chronic renal insufficiency N28.9; N18.9 Stage 3b chronic kidney disease N18.32 Chronic kidney disease stage 3 subtype: stage 3b (GFR 30-44) Urinary tract infection N30.00 Hematuria presence: without hematuria Urinary tract infection type: acute cystitis Staphylococcus aureus bacteremia R78.81; B95.61 BASIA (obstructive sleep apnea) G47.33 GI bleed K92.2 Acute encephalopathy G93.40 Fluid overload E87.70 Acute respiratory failure J96.00 Acute renal failure N17.9 Metabolic acidosis E87.20 Thrombocytopenia D69.6 Uremia N19 Hyperbilirubinemia E80.6 Acute respiratory distress R06.03
[2023-11-26] MEDS: dextrose 10% 1,000 ML 50 ML IV (16:34)
--- NOTE | 2023-11-26 17:52 | P.PN_ITS ---
Subjective 2 Subjective: no new c/o Medications: Reviewed: Yes Vitals/I&O/Wt Last Vital Signs Temp 97.5 F L 11/26/23 16:00 Pulse 78 11/26/23 16:00 Resp 15 11/26/23 11:49 BP 156/67 11/26/23 16:00 Pulse Ox 98 11/26/23 16:00 O2 Del Method Nasal Cannula 11/26/23 16:00 O2 Flow Rate 4 11/26/23 16:00 11/26/23 11/26/23 11/26/23 06:59 14:59 22:59 Intake Total 50 / 1850 1050 / 1050 Output Total 1979 Balance 50 / -130 1050 / 1050 Weight last 48 hrs Weight 146.828 kg Weight 75.6 kg Weight 73.981 kg Physical Exam 2 Narrative: Elderly ill-appearing lady in bed hemodynamically stable. using nc 02 HEENT normocephalic/atraumatic. Neck is supple, rt sided line Lungs dull bases. Heart irregular with heart rate control. Abdomen soft positive bowel sounds. Extremities bilateral 1-2+ leg edema. Neuro lethargic however awakens follows simple commands . Data 11/26/23 02:43 11/26/23 02:43 Micro: Microbiology 11/24/23 09:39 Urine Culture - Final Urine,Clean Catch A&P Assessment and plan (1) Acute on chronic renal insufficiency: 73-year-old lady history of heart failure reduced EF, CABG, PCI, question pulmonary embolism, hypertension, obstructive sleep apnea, A-fib, peripheral arterial disease, atrophic right kidney, liver cirrhosis, recent Staph aureus bacteremia 1. GI bleed : Status post endoscopy with nonbleeding varices and portal hypertension. 2. Acute kidney injury : patient baseline creatinine was normal 1 year ago was 0.61 up to 1.1 mg/dL September 2023. Creatinine of 2.1 mg/dL 3 weeks ago when she left the hospital and most of October.Now with a creatinine of 5 mg/dL.Imaging without hydronephrosis however she does have an atrophic right kidney. Urinalysis reviewed 1+ protein she does have 1+ ketones 3+ blood, leukocytes 2+ 25-40 white cells question of UTI on antibiotics. Patient has CT scan showing un changes atrophy of the right kidney with diffuse cortical thinning some simple cyst no hydronephrosis Differential diagnosis in this patient is: a. ATN, risk would be being on diuretics,not eating well, having a GI bleed, and likely having some hypotension the patient with heart failure reduced EF and having an atrophic right kidney at baseline b infection related GN though does not have significant hematuria - C. interstitial nephritis from antibiotics e. Less likely cardiorenal syndrome though can be contributing. Also note patient received contrast - . Patient is at high risk for progression of acute kidney injury and is oliguric. First HD Tuesday , No renal recovery yet ,will need tunneled catheter placement tuesday 3.metabolic acidosis is improved 4. Hyperkalemia likely from acute kidney injury-has improved.. 5. Anemia from GI bleed and also from chronic disease. Negative SPEP. 6. Elevated TSH consider giving levothyroxine as per medicine. 8. Elevated BNP patient with heart failure reduced EF. per cardiology. ef appears to have improved to 30% and moderate MR Patient seen and examined with the patient's nurse The patient was seen and examined using A/V equipment. Plan See above. Attestations 2 Medical Necessity Statement*: per medicine Coding Level of Care Code Acute Code for Chg Fwd Diagnoses Acute on chronic renal insufficiency N28.9; N18.9
--- NOTE | 2023-11-26 22:00 | PC.NURSE ---
blood glucose 126, glucometer not connecting
[2023-11-27] VITALS (9 sets, daily range): BP systolic 112–146; BP diastolic 67–75; PULSE 70–97; RESP 14–20; TEMP 36.4–37.1; O2SAT 95–100
[2023-11-27] MEDS: vancomycin 750 MG in sodium chloride 0.9% 250 ML 250 MG IV (03:21)
[2023-11-27 04:08] LABS: Basophils % 0.3 %; Eosinophils # 0.1 10^3/uL (0.0-0.8); Eosinophils % 0.8 %; Hematocrit 27.7 % (36-47); Lymphocytes # 0.9 10^3/uL (0.8-4.8); Lymphocytes % 5.8 %; Mean Corpuscular HGB Conc 31.8 g/dL (30-55); Mean Corpuscular Hemoglobin 31.9 pg (27-33); Mean Corpuscular Volume 100.4 fl (85-98); Mean Platelet Volume 11.1 fL (7.4-10.4); Monocytes # 1.5 10^3/uL (0.2-0.9); Monocytes % 9.9 %; Neutrophils # 11.98 10^3/uL (1.8-7.7); Neutrophils % 78.7 %; Nucleated Red Blood Cells # 0.1 /100WBC; Nucleated Red Blood Cells % 0.5 %; Platelet Count 108 10^3/cmm (157-399); Red Blood Count 2.76 10^6/uL (3.85-5.65); White Blood Count 15.21 10^3/uL (3.29-11.43)
[2023-11-27 04:34] LABS: Procalcitonin 0.44 ng/mL (0-0.5)
[2023-11-27 04:50] LABS: Alanine Aminotransferase < 5 U/L (0-33); Albumin Level 3.3 g/dL (3.5-5.2); Alkaline Phosphatase 250 U/L (35-105); Blood Urea Nitrogen 28 mg/dL (8-23); C Reactive Protein 123.4 mg/L (0.0-4.9); Carbon Dioxide 23 mmol/L (22-29); Chloride 96 mmol/L (98-107); Creatinine Clr Calc Pharmacy 25.2334; Globulin 3.1 g/dL (1.3-4.6); Glucose 117 mg/dL (65-115); Osmolality Calculated 287 mOsm/kg (285-295); Sodium 135 mmol/L (136-145); Total Bilirubin 2.8 mg/dL (0.15-1.2); Total Protein 6.4 g/dL (6.6-8.7)
[2023-11-27 04:54] LABS: Anion Gap 19.8 (5-19); Aspartate Amino Transferase 51 U/L (0-32); Potassium 3.8 mmol/L (3.5-5.1)
[2023-11-27 04:55] LABS: NT Pro B Type Natriuretic Pept > 70000 pg/mL (0-125)
--- NOTE | 2023-11-27 06:39 | PC.NURSE ---
patient has not rested tonight. patient has been restless and fidgety tonight. patient has complained about nursing staff touching her arms and hands, stating she feels like her hands are falling to pieces.
[2023-11-27] MEDS: pantoprazole 40 mg SDV IVP ×2 (10:15→21:52)
[2023-11-27] MEDS: piperacillin-tazobactam 3.375 GM in sodium chloride 0.9% (plus) 50 ML IV ×2 (10:29→21:52)
--- NOTE | 2023-11-27 12:22 | PC.SLP ---
Late entry for 11-26-23: Saw patient and trialed some [place] ice. She continues to be very active in her bed, however was able to tolerate the liquid as it melted, without any problem. See evaluation
--- NOTE | 2023-11-27 12:26 | PC.SLP ---
ENVIRONMENTAL DESIGNER attempted visit, however, patient is sleeping after having a restless night. ST did not attempt to wake her up.
[2023-11-27] MEDS: dextrose 10% 1,000 ML 50 ML IV (14:35)
--- NOTE | 2023-11-27 16:30 | P.PN_ITS ---
Subjective 2 Subjective: - Patient was seen this morning, she is alert to person, to place, not to time, she can follow commands, such as squeezing my fingers, wiggling her toes but easily becomes encephalopathic, start removing her telemetry wires, removing her oxygen, but is easily redirectable, she denies any complaints, on palpation of abdomen she does not really complain of any pain, overnight, remains normotensive, afebrile, -I had a detailed discussion with eva tan's this afternoon, currently he is going up to [place] but will be back in [place] tomorrow ? I had a discussion with him about Essie's persistent encephalopathy, it does appear to have improved compared to a few days prior but continues to have encephalopathy, likely secondary to prolonged hospitalization, prolonged ICU stay, GI bleed, acute renal failure, acute respiratory failure, I broaden her antibiotic coverage, will continue to monitor mentation closely ? Discussed her GI bleed, hemoglobin is stable As discussed her respiratory failure, still requiring nasal cannula, but BNP is now over 70,000, she is developing edema, anasarca ? Discussed her poor renal function, her poor urine output, she is likely going to require long-term dialysis however given her significant deconditioned state, her encephalopathy she is not a reasonable candidate for long-term dialysis ? We discussed her overall goals of care, he wants to give her some more time, continue medical interventions for now, and he will be here tomorrow, will decide on further management, tomorrow once he is back here in the hospital Vitals/I&O/Wt Last Vital Signs Temp 97.5 F L 11/27/23 11:50 Pulse 83 11/27/23 11:50 Resp 20 H 11/27/23 11:50 BP 112/75 11/27/23 11:50 Pulse Ox 99 11/27/23 11:50 O2 Del Method Nasal Cannula 11/27/23 11:50 O2 Flow Rate 4 11/27/23 09:57 11/27/23 11/27/23 11/27/23 06:59 14:59 22:59 Intake Total 300 / 1350 1050 / 1050 Output Total 50 / 50 Balance 250 / 1300 1050 / 1050 Weight last 48 hrs Weight 72.983 kg Weight 146.828 kg Physical Exam 2 Const: COMMON NORMALS: no acute distress EXAM LIMITATIONS: altered mental status ORIENTATION/CONSCIOUSNESS: Yes awake, Yes oriented to person, Yes oriented to place and Yes confused; not oriented to time Resp: COMMON NORMALS: normal respiratory effort, No retractions and No use of accessory muscles AUSCULTATION: crackles Cardio: COMMON NORMALS: regular rate, regular rhythm, S1 normal heart sound present and S2 normal heart sound present RATE: regular rate RHYTHM: r egular rhythm HEART SOUNDS: S1 normal heart sound present and S2 normal heart sound present GI: COMMON NORMALS: Normal to inspection, nondistended, normoactive bowel sounds present and non-tender Extremity: OTHER: 1+ pitting edema, anasarca Neuro: SENSORIUM/ORIENTATION: Yes oriented to person, Yes oriented to place and No oriented to time Data 11/27/23 03:17 11/27/23 03:17 A&P Assessment and plan (1) HTN (hypertension): Hold blood pressure medications Qualifiers: Hypertension type: primary hypertension Qualified Code(s): I10 - Essential (primary) hypertension (2) Congestive heart failure: Qualifiers: Heart failure chronicity: acute on chronic Heart failure type: d iastolic Qualified Code(s): I50.33 - Acute on chronic diastolic (congestive) heart failure (3) CAD (coronary artery disease): (4) Atrial fibrillation: (5) Supratherapeutic INR: (6) Abdominal pain: (7) BERNADETTE (acute kidney injury): (8) Acute on chronic renal insufficiency: (9) CKD (chronic kidney disease) stage 3, GFR 30-59 ml/min: Qualifiers: Chronic kidney disease stage 3 subtype: stage 3b (GFR 30-44) Qualified Code(s): N18.32 - Chronic kidney disease, stage 3b (10) Urinary tract infection: Qualifiers: Hematuria presence: without hematuria Urinary tract infection type: a cute cystitis Qualified Code(s): N30.00 - Acute cystitis without hematuria (11) Staphylococcus aureus bacteremia: (12) BASIA (obstructive sleep apnea): (13) GI bleed: (14) Acute encephalopathy: (15) Fluid overload: (16) Acute respiratory failure: (17) Acute renal failure: (18) Metabolic acidosis: (19) Thrombocytopenia: (20) Uremia: (21) Hyperbilirubinemia: (22) Acute respiratory distress: Plan Plan Acute upper GI bleed ? Hemoglobin stable ? Status post 2 units of blood, 3 units FFP, 1 unit platelet ? Status post EGD, findings of duodenitis with contact bleeding, clips placed into the duodenum, portal hypertensive gastropathy, small hiatal hernia, nonbleeding esophageal varices ? Plan ? Will advance diet if her mentation improves ? Protonix 40 mg IV twice daily ? Carafate ? Monitor hemoglobin, INR, BMP closely -Transfuse for hemoglobin less than 7 ? Will consider FFP if INR is above 1.5-2 ? Monitor for bloody or black stools -monitor hemodynamics closely Metabolic acidosis, increased anion gap, resolving ? Secondary to acute blood loss anemia, potentially starvation ketosis, liver cirrhosis ? Plan ?Receiving dialysis ? Concerns for fluid overload Liver cirrhosis CT scan shows liver having a cirrhotic morphology, small to moderate volume ascites, with anasarca ? Etiology hepatitis panel within normal limits, had a cholecystectomy in August of this year, cannot do an MRCP given her pacemaker ? During her last hospitalization when I took care of her she also developed hyperbilirubinemia, with transaminitis, there was discussion with [facility], they recommended for patient to follow-up with hepatology as outpatient. In review of her records show that when she has had hospitalizations for CHF exacerbation she has had hyperbilirubinemia at that time also ? Thus I suspect her etiology of liver cirrhosis being cardiac cirrhosis, from severe heart failure ? With hyperbilirubinemia ? With thrombocytopenia ? With elevated INR ? Supratherapeutic INR ? Acute renal failure ? Hyperbilirubinemia ? Monitor closely ? Plan Thrombocytopenia, 77,000 ? She had thrombocytopenia during her last hospitalization secondary to Protonix ? Currently on Protonix for her GI bleed will continue monitor platelet count closely Acute hypoxic respiratory failure, 4 L ? Secondary to acute fluid overload, blood products ? History of systolic CHF, last echocardiogram October 21, 2023 showed a EF of 20% with severe diffuse hypokinesia of the left ventricle ? Plan ? Monitor respiratory status closely -Lackluster response to Bumex, Bumex drip -Status post dialysis catheter placement, currently receiving 2 session of dialysis -Monitor respiratory status closely will consider BiPAP based on clinical progress ? Monitor creatinine, monitor potassium Acute systolic CHF exacerbation ? As above Acute encephalopathy ? Likely multifactorial, from acute hypoxia, GI bleed, possible UTI, uremic encephalopathy ? Neurochecks ? N/A stroke scale ? Aspiration precaution Keep n.p.o. Uremic encephalopathy Acute renal failure on chronic kidney disease ? Likely multifactorial ? From GI bleed, ? Liver cirrhosis, possible hepatorenal syndrome? Possible cardiorenal syndrome given severely diminished EF ? Nephrology consulted ? Lackluster response to sodium bicarb, Bumex drip, Status post dialysis catheter placement second session of dialysis ? Hyperkalemia, resolved Urinary tract infection ? Continue Zosyn ? Follow urine cultures ? Follow blood cultures History of Staph aureus bacteremia ? On IV cefazolin -Switch to Zosyn Atrial fibrillation, not on anticoagulation CAD, on Plavix, - Plavix currently on hold Cath in 2022 showed ?Conclusions 1. Critical in-stent restenosis of 2. SVG to diagonal artery prior stent. Status post successful revascularization with balloon angioplasty. Severe stenosis of SVG to diagonal artery proximal to prior stent. S/p successful revascularization with 1 stent.. 3. Patient has prior CABG. plan ? Serial EKGs consult once, telemetry monitoring neck ? The longer anticoagulation/antiplatelet therapy is held, the higher risk of adverse cardiovascular event, Certainly this is a difficult situation on the 1 hand she has a risk of coronary event as she her aspirin and Plavix are on hold, but on the other hand is a high risk of GI bleed for now as she is currently in for GI bleed will hold anticoagulation Continues to have encephalopathy, although improved compared to the last 48 hours, continues to have deconditioning, poor appetite, high aspiration risk, has remained in bed, will have nursing staff try to feed her see if she can feed she remains anticoagulant therapy, antiplatelet therapy due to high GI risk bleed, spoke to , given her deconditioned state, encephalopathy, she is a poor candidate for dialysis continues to have poor urine output, will continue to monitor as per his wishes, will await family meeting with him tomorrow Attestations 2 Medical Necessity Statement*: Patient requires hospitalization for acute encephalopathy, leukocytosis, acute renal failure, deconditioned state Diagnoses Primary hypertension I10 Hypertension type: primary hypertension Acute on chronic diastolic congestive heart failure I50.33 Heart failure chronicity: acute on chronic Heart failure type: diastolic CAD (coronary artery disease) I25.10 Atrial fibrillation I48.91 Supratherapeutic INR R79.1 Abdominal pain R10.9 BERNADETTE (acute kidney injury) N17.9 Acute on chronic renal insufficiency N28.9; N18.9 Stage 3b chronic kidney disease N18.32 Chronic kidney disease stage 3 subtype: stage 3b (GFR 30-44) Urinary tract infection N30.00 Hematuria presence: without hematuria Urinary tract infection type: acute cystitis Staphylococcus aureus bacteremia R78.81; B95.61 BASIA (obstructive sleep apnea) G47.33 GI bleed K92.2 Acute encephalopathy G93.40 Fluid overload E87.70 Acute respiratory failure J96.00 Acute renal failure N17.9 Metabolic acidosis E87.20 Thrombocytopenia D69.6 Uremia N19 Hyperbilirubinemia E80.6 Acute respiratory distress R06.03
--- NOTE | 2023-11-27 23:12 | PC.NURSE ---
blood glucose 138
[2023-11-28] VITALS (9 sets, daily range): BP systolic 106–143; BP diastolic 65–76; PULSE 70–100; RESP 18–20; TEMP 36.3–36.7; O2SAT 93–100
--- NOTE | 2023-11-28 00:09 | PC.NURSE ---
blood glucose 137
--- NOTE | 2023-11-28 01:15 | PC.NURSE ---
blood glucose 138
--- NOTE | 2023-11-28 02:23 | PC.NURSE ---
blood glucose 138
--- NOTE | 2023-11-28 04:09 | PC.NURSE ---
blood glucose 138
[2023-11-28 04:35] LABS: Basophils % 0.3 %; Eosinophils # 0.2 10^3/uL (0.0-0.8); Eosinophils % 1.5 %; Hematocrit 29.5 % (36-47); Lymphocytes # 0.7 10^3/uL (0.8-4.8); Lymphocytes % 6.1 %; Mean Corpuscular HGB Conc 31.9 g/dL (30-55); Mean Corpuscular Hemoglobin 32.1 pg (27-33); Mean Corpuscular Volume 100.7 fl (85-98); Mean Platelet Volume 10.4 fL (7.4-10.4); Monocytes # 1.1 10^3/uL (0.2-0.9); Monocytes % 9.6 %; Neutrophils # 8.95 10^3/uL (1.8-7.7); Neutrophils % 76.5 %; Nucleated Red Blood Cells # 0.1 /100WBC; Nucleated Red Blood Cells % 0.5 %; Platelet Count 103 10^3/cmm (157-399); Red Blood Count 2.93 10^6/uL (3.85-5.65); Red Cell Distribution Width 22.1 % (12.1-15.1); White Blood Count 11.69 10^3/uL (3.29-11.43)
[2023-11-28 05:07] LABS: Procalcitonin 0.52 ng/mL (0-0.5)
[2023-11-28 05:20] LABS: Alanine Aminotransferase < 5 U/L (0-33); Globulin 3.2 g/dL (1.3-4.6)
[2023-11-28 05:29] LABS: Blood Urea Nitrogen 31 mg/dL (8-23); Carbon Dioxide 21 mmol/L (22-29)
[2023-11-28 05:30] LABS: C Reactive Protein 99.9 mg/L (0.0-4.9); Creatinine Clr Calc Pharmacy 14.3442; Glucose 144 mg/dL (65-115); Total Bilirubin 2.7 mg/dL (0.15-1.2)
[2023-11-28 05:31] LABS: Albumin Level 3.2 g/dL (3.5-5.2); Alkaline Phosphatase 289 U/L (35-105); NT Pro B Type Natriuretic Pept > 70000 pg/mL (0-125); Total Protein 6.4 g/dL (6.6-8.7)
[2023-11-28 05:32] LABS: Osmolality Calculated 281 mOsm/kg (285-295)
[2023-11-28 07:05] LABS: Glucose Point of Care 138 mg/dL (70-110)
[2023-11-28 07:05] LABS: Glucose Point of Care 138 mg/dL (70-110)
[2023-11-28 07:05] LABS: Glucose Point of Care 162 mg/dL (70-110)
[2023-11-28 07:05] LABS: Glucose Point of Care 152 mg/dL (70-110)
[2023-11-28 07:32] LABS: Glucose Point of Care 96 mg/dL (70-110)
[2023-11-28 07:32] LABS: Glucose Point of Care 129 mg/dL (70-110)
[2023-11-28 07:32] LABS: Glucose Point of Care 131 mg/dL (70-110)
[2023-11-28 07:32] LABS: Glucose Point of Care 118 mg/dL (70-110)
[2023-11-28 07:32] LABS: Glucose Point of Care 113 mg/dL (70-110)
[2023-11-28 07:32] LABS: Glucose Point of Care 142 mg/dL (70-110)
[2023-11-28 07:32] LABS: Glucose Point of Care 117 mg/dL (70-110)
[2023-11-28 07:32] LABS: Glucose Point of Care 131 mg/dL (70-110)
[2023-11-28 07:32] LABS: Glucose Point of Care 129 mg/dL (70-110)
[2023-11-28 07:32] LABS: Glucose Point of Care 133 mg/dL (70-110)
[2023-11-28 07:32] LABS: Glucose Point of Care 92 mg/dL (70-110)
[2023-11-28 07:32] LABS: Glucose Point of Care 120 mg/dL (70-110)
[2023-11-28 07:32] LABS: Glucose Point of Care 101 mg/dL (70-110)
[2023-11-28 07:32] LABS: Glucose Point of Care 132 mg/dL (70-110)
[2023-11-28 07:32] LABS: Glucose Point of Care 133 mg/dL (70-110)
[2023-11-28 07:32] LABS: Glucose Point of Care 109 mg/dL (70-110)
[2023-11-28 07:32] LABS: Glucose Point of Care 133 mg/dL (70-110)
[2023-11-28 07:32] LABS: Glucose Point of Care 146 mg/dL (70-110)
[2023-11-28 07:32] LABS: Glucose Point of Care 131 mg/dL (70-110)
[2023-11-28 07:32] LABS: Glucose Point of Care 115 mg/dL (70-110)
[2023-11-28 07:32] LABS: Glucose Point of Care 128 mg/dL (70-110)
[2023-11-28 07:32] LABS: Glucose Point of Care 140 mg/dL (70-110)
[2023-11-28 07:32] LABS: Glucose Point of Care 107 mg/dL (70-110)
[2023-11-28 07:32] LABS: Glucose Point of Care 154 mg/dL (70-110)
[2023-11-28 07:33] LABS: Glucose Point of Care 144 mg/dL (70-110)
[2023-11-28 07:33] LABS: Glucose Point of Care 121 mg/dL (70-110)
[2023-11-28 07:33] LABS: Glucose Point of Care 143 mg/dL (70-110)
[2023-11-28 07:33] LABS: Glucose Point of Care 97 mg/dL (70-110)
[2023-11-28 07:33] LABS: Glucose Point of Care 124 mg/dL (70-110)
[2023-11-28 07:33] LABS: Glucose Point of Care 139 mg/dL (70-110)
[2023-11-28 07:33] LABS: Glucose Point of Care 137 mg/dL (70-110)
[2023-11-28 07:33] LABS: Glucose Point of Care 84 mg/dL (70-110)
[2023-11-28 07:33] LABS: Glucose Point of Care 131 mg/dL (70-110)
[2023-11-28 07:33] LABS: Glucose Point of Care 120 mg/dL (70-110)
[2023-11-28 07:33] LABS: Glucose Point of Care 123 mg/dL (70-110)
[2023-11-28 07:33] LABS: Glucose Point of Care 133 mg/dL (70-110)
[2023-11-28 07:33] LABS: Glucose Point of Care 126 mg/dL (70-110)
[2023-11-28 07:33] LABS: Glucose Point of Care 125 mg/dL (70-110)
[2023-11-28 07:33] LABS: Glucose Point of Care 129 mg/dL (70-110)
[2023-11-28 07:33] LABS: Glucose Point of Care 110 mg/dL (70-110)
[2023-11-28 07:33] LABS: Glucose Point of Care 119 mg/dL (70-110)
[2023-11-28 07:33] LABS: Glucose Point of Care 140 mg/dL (70-110)
[2023-11-28 07:33] LABS: Glucose Point of Care 151 mg/dL (70-110)
[2023-11-28 07:33] LABS: Glucose Point of Care 135 mg/dL (70-110)
[2023-11-28 07:33] LABS: Glucose Point of Care 98 mg/dL (70-110)
[2023-11-28 07:33] LABS: Glucose Point of Care 124 mg/dL (70-110)
[2023-11-28 07:33] LABS: Glucose Point of Care 118 mg/dL (70-110)
[2023-11-28 07:33] LABS: Glucose Point of Care 141 mg/dL (70-110)
[2023-11-28 07:40] LABS: Glucose Point of Care 138 mg/dL (70-110)
[2023-11-28 07:40] LABS: Glucose Point of Care 143 mg/dL (70-110)
[2023-11-28 07:40] LABS: Glucose Point of Care 144 mg/dL (70-110)
[2023-11-28 07:40] LABS: Glucose Point of Care 126 mg/dL (70-110)
[2023-11-28 07:41] LABS: Glucose Point of Care 116 mg/dL (70-110)
[2023-11-28 07:41] LABS: Glucose Point of Care 118 mg/dL (70-110)
[2023-11-28 08:40] LABS: Aspartate Amino Transferase 36 U/L (0-32); Chloride 94 mmol/L (98-107); Potassium 3.2 mmol/L (3.5-5.1); Sodium 132 mmol/L (136-145)
--- NOTE | 2023-11-28 09:01 | P.PN_ITS ---
Subjective 2 Subjective: no improvement in mental status Medications: Reviewed: Yes Vitals/I&O/Wt Last Vital Signs Temp 98.0 F 11/28/23 08:00 Pulse 84 11/28/23 08:00 Resp 18 11/28/23 08:00 BP 126/76 11/28/23 08:00 Pulse Ox 93 11/28/23 08:00 O2 Del Method Nasal Cannula 11/28/23 08:00 O2 Flow Rate 2 11/28/23 04:00 11/27/23 11/28/23 11/28/23 22:59 06:59 14:59 Intake Total 50 / 1100 Balance 50 / 1100 Weight last 48 hrs Weight 74.979 kg Weight 72.983 kg Physical Exam 2 Narrative: Elderly ill-appearing lady in bed hemodynamically stable. using nc 02 HEENT normocephalic/atraumatic. Neck is supple, rt sided line Lungs dull bases. Heart irregular with heart rate control. Abdomen soft positive bowel sounds. Extremities bilateral 1-2+ leg edema. Neuro lethargic however awakens follows simple commands . Data 11/28/23 03:35 11/28/23 08:07 A&P Assessment and plan (1) Acute on chronic renal insufficiency: 73-year-old lady history of heart failure reduced EF, CABG, PCI, question pulmonary embolism, hypertension, obstructive sleep apnea, A-fib, peripheral arterial disease, atrophic right kidney, liver cirrhosis, recent Staph aureus bacteremia 1. GI bleed : Status post endoscopy with nonbleeding varices and portal hypertension. 2. Acute kidney injury : patient baseline creatinine was normal 1 year ago was 0.61 up to 1.1 mg/dL September 2023. Creatinine of 2.1 mg/dL 3 weeks ago when she left the hospital and most of October.Now with a creatinine of 5 mg/dL.Imaging without hydronephrosis however she does have an atrophic right kidney. HD started [facility] Tuesday , No renal recovery yet , Will not tolerate intermediate manager HD Family considering conservative measures and comfort care 3.metabolic acidosis 4. Hyperkalemia likely from acute kidney injury-has improved.. 5. Anemia from GI bleed and also from chronic disease. Negative SPEP. 6. Elevated TSH consider giving levothyroxine as per medicine. 8. Elevated BNP patient with heart failure reduced EF. per cardiology. ef appears to have improved to 30% and moderate MR Patient seen and examined with the patient's nurse The patient was seen and examined using A/V equipment. Plan See above. Attestations 2 Medical Necessity Statement*: per shashank Coding Level of Care Code Acute Code for Chg Fwd Diagnoses Acute on chronic renal insufficiency N28.9; N18.9
[2023-11-28] MEDS: morphine 4 mg/mL SDV 1 mL IVP ×4 (10:14→23:12)
--- NOTE | 2023-11-28 10:23 | PC.SOCIAL ---
IMM Update pg 2 of IMM updated and reviewed w/ patient. Copy provided, copy dated, initialed and placed in chart.
[2023-11-28] MEDS: blistex lip oint 7 gm Tube 1 APPLIC TOPICAL (13:36)
--- NOTE | 2023-11-28 14:27 | P.PN_ITS ---
Subjective 2 Subjective: - Patient was seen this morning, family members at bedside including She is alert oriented x 0, does not follow commands, does not awaken, in mild to moderate respiratory failure, currently on 2 L nasal flaring intercostal retractions, suprasternal retractions with generalized anasarca, fluid overload -I had a detailed discussion with the michoacano rios family about goals of care -Patient has cardiomyopathy EF 20 to 30% , end-stage renal disease minimal urine output, she will likely require permanent dialysis, minimal urine output, she will likely require permanent dialysis, acute respiratory failure, GI bleed, encephalopathy, liver cirrhosis, she is in a deconditioned state with severe protein calorie malnutrition, urine output lackluster at 50 cc -As today she is developed fluid overloa d BNP over 70,000, severely deconditioned, creatinine 3.6, urine output lackluster, developing severe fluid overload, she needs dialysis however after discussing with patient the risks and benefits of dialysis, he voiced understanding, all question answered, declined dialysis for Essie ? Currently given her state she is not going to be a good candidate for long- term dialysis -I discussed all options including art nue medical intervention giving her time, versus comfort care/hospice Discussed risk and benefits of all options, shared decision making, he voiced understanding ? After discussing with him the risk and benefits of hospice, comfort care, he voiced understanding, all Qs answered, shared decision making, agreed to proceed ? Will proceed with hospice/comfort care Vitals/I&O/Wt Last Vital Signs Temp 98.0 F 11/28/23 08:00 Pulse 70 11/28/23 12:00 Resp 18 11/28/23 08:00 BP 126/76 11/28/23 08:00 Pulse Ox 99 11/28/23 09:16 O2 Del Method Nasal Cannula 11/28/23 09:16 O2 Flow Rate 2 11/28/23 09:16 11/27/23 11/28/23 11/28/23 22:59 06:59 14:59 Intake Total 50 / 1100 1000 / 1000 Balance 50 / 1100 1000 / 1000 Weight last 48 hrs Weight 74.979 kg Weight 72.983 kg Physical Exam 2 Const: COMMON NORMALS: no acute distress EXAM LIMITATIONS: altered mental status ORIENTATION/CONSCIOUSNESS: Yes confused and Yes patient obtunded; not awake, not oriented to person and not oriented to place Eye: COMMON NORMALS: Equal, round and reactive pupils present PUPIL: Yes Equal, round and reactive pupils present Resp: EFFORT & INSPECTION: Yes abnormal respiratory pattern, Yes tachypneic, Yes respiratory distress, Yes retractions and Yes uses accessory muscles A USCULTATION: crackles Cardio: COMMON NORMALS: regular rhythm, S1 normal heart sound present and S2 normal heart sound present RATE: tachycardic RHYTHM: regular rhythm H EART SOUNDS: S1 normal heart sound present and S2 normal heart sound present GI: COMMON NORMALS: Normal to inspection, nondistended, normoactive bowel sounds present, Soft to palpation and non-tender PALPATION: Yes Soft to palpation Extremity: COMMON NORMALS: no pedal edema Neuro: SENSORIUM/ORIENTATION: No oriented to person and No oriented to place Skin: NARRATIVE SKIN EXAM: Anasarca, fluid overload Data 11/28/23 03:35 11/28/23 08:07 A&P Assessment and plan (1) HTN (hypertension): Hold blood pressure medications Qualifiers: Hypertension type: primary hypertension Qualified Code(s): I10 - Essential (primary) hypertension (2) Congestive heart failure: Qualifiers: Heart failure chronicity: acute on chronic Heart failure type: d iastolic Qualified Code(s): I50.33 - Acute on chronic diastolic (congestive) heart failure (3) CAD (coronary artery disease): (4) Atrial fibrillation: (5) Supratherapeutic INR: (6) Abdominal pain: (7) BERNADETTE (acute kidney injury): (8) Acute on chronic renal insufficiency: (9) CKD (chronic kidney disease) stage 3, GFR 30-59 ml/min: Qualifiers: Chronic kidney disease stage 3 subtype: stage 3b (GFR 30-44) Qualified Code(s): N18.32 - Chronic kidney disease, stage 3b (10) Urinary tract infection: Qualifiers: Hematuria presence: without hematuria Urinary tract infection type: a cute cystitis Qualified Code(s): N30.00 - Acute cystitis without hematuria (11) Staphylococcus aureus bacteremia: (12) BASIA (obstructive sleep apnea): (13) GI bleed: (14) Acute encephalopathy: (15) Fluid overload: (16) Acute respiratory failure: (17) Acute renal failure: (18) Metabolic acidosis: (19) Thrombocytopenia: (20) Uremia: (21) Hyperbilirubinemia: (22) Acute respiratory distress: (23) Need for comfort care: Plan Plan Proceeding with comfort care Acute upper GI bleed ? Hemoglobin stable ? Status post 2 units of blood, 3 units FFP, 1 unit platelet ? Status post EGD, findings of duodenitis with contact bleeding, clips placed into the duodenum, portal hypertensive gastropathy, small hiatal hernia, nonbleeding esophageal varices ? Plan ? Will advance diet if her mentation improves ? Protonix 40 mg IV twice daily ? Carafate ? Monitor hemoglobin, INR, BMP closely -Transfuse for hemoglobin less than 7 ? Will consider FFP if INR is above 1.5-2 ? Monitor for bloody or black stools -monitor hemodynamics closely Metabolic acidosis, increased anion gap, resolving ? Secondary to acute blood loss anemia, potentially starvation ketosis, liver cirrhosis ? Plan ?Receiving dialysis ? Concerns for fluid overload Liver cirrhosis CT scan shows liver having a cirrhotic morphology, small to moderate volume ascites, with anasarca ? Etiology hepatitis panel within normal limits, had a cholecystectomy in August of this year, cannot do an MRCP given her pacemaker ? During her last hospitalization when I took care of her she also developed hyperbilirubinemia, with transaminitis, there was discussion with [facility], they recommended for patient to follow-up with hepatology as outpatient. In review of her records show that when she has had hospitalizations for CHF exacerbation she has had hyperbilirubinemia at that time also ? Thus I suspect her etiology of liver cirrhosis being cardiac cirrhosis, from severe heart failure ? With hyperbilirubinemia ? With thrombocytopenia ? With elevated INR ? Supratherapeutic INR ? Acute renal failure ? Hyperbilirubinemia ? Monitor closely ? Plan Thrombocytopenia, 77,000 ? She had thrombocytopenia during her last hospitalization secondary to Protonix ? Currently on Protonix for her GI bleed will continue monitor platelet count closely Acute hypoxic respiratory failure, 4 L ? Secondary to acute fluid overload, blood products ? History of systolic CHF, last echocardiogram October 21, 2023 showed a EF of 20% with severe diffuse hypokinesia of the left ventricle ? Plan ? Monitor respiratory status closely -Lackluster response to Bumex, Bumex drip -Status post dialysis catheter placement, currently receiving 2 session of dialysis -Monitor respiratory status closely will consider BiPAP based on clinical progress ? Monitor creatinine, monitor potassium Acute systolic CHF exacerbation ? As above Acute encephalopathy ? Likely multifactorial, from acute hypoxia, GI bleed, possible UTI, uremic encephalopathy ? Neurochecks ? N/A stroke scale ? Aspiration precaution Keep n.p.o. Uremic encephalopathy Acute renal failure on chronic kidney disease ? Likely multifactorial ? From GI bleed, ? Liver cirrhosis, possible hepatorenal syndrome? Possible cardiorenal syndrome given severely diminished EF ? Nephrology consulted ? Lackluster response to sodium bicarb, Bumex drip, Status post dialysis catheter placement second session of dialysis ? Hyperkalemia, resolved Urinary tract infection ? Continue Zosyn ? Follow urine cultures ? Follow blood cultures History of Staph aureus bacteremia ? On IV cefazolin -Switch to Zosyn Atrial fibrillation, not on anticoagulation CAD, on Plavix, - Plavix currently on hold Cath in 2022 showed ?Conclusions 1. Critical in-stent restenosis of 2. SVG to diagonal artery prior stent. Status post successful revascularization with balloon angioplasty. Severe stenosis of SVG to diagonal artery proximal to prior stent. S/p successful revascularization with 1 stent.. 3. Patient has prior CABG. plan ? Serial EKGs consult once, telemetry monitoring neck ? The longer anticoagulation/antiplatelet therapy is held, the higher risk of adverse cardiovascular event, Certainly this is a difficult situation on the 1 hand she has a risk of coronary event as she her aspirin and Plavix are on hold, but on the other hand is a high risk of GI bleed for now as she is currently in for GI bleed will hold anticoagulation proceeding with comfort care Attestations 2 Medical Necessity Statement*: proceeding with comfort Diagnoses Primary hypertension I10 Hypertension type: primary hypertension Acute on chronic diastolic congestive heart failure I50.33 Heart failure chronicity: acute on chronic Heart failure type: diastolic CAD (coronary artery disease) I25.10 Atrial fibrillation I48.91 Supratherapeutic INR R79.1 Abdominal pain R10.9 BERNADETTE (acute kidney injury) N17.9 Acute on chronic renal insufficiency N28.9; N18.9 Stage 3b chronic kidney disease N18.32 Chronic kidney disease stage 3 subtype: stage 3b (GFR 30-44) Urinary tract infection N30.00 Hematuria presence: without hematuria Urinary tract infection type: acute cystitis Staphylococcus aureus bacteremia R78.81; B95.61 BASIA (obstructive sleep apnea) G47.33 GI bleed K92.2 Acute encephalopathy G93.40 Fluid overload E87.70 Acute respiratory failure J96.00 Acute renal failure N17.9 Metabolic acidosis E87.20 Thrombocytopenia D69.6 Uremia N19 Hyperbilirubinemia E80.6 Acute respiratory distress R06.03 Need for comfort care
[2023-11-28 22:14] LABS: Glucose Point of Care 156 mg/dL (70-110)
[2023-11-28 22:14] LABS: Glucose Point of Care 127 mg/dL (70-110)
[2023-11-29] MEDS: morphine 4 mg/mL SDV 1 mL IVP ×3 (03:41→07:47)
[2023-11-29 05:22] VITALS: RESP 18
[2023-11-29] MEDS: atropine 1% op soln 2 mL Btl 3 DROP SUBLINGUAL (06:39)
[2023-11-29 07:47] VITALS: RESP 24
[2023-11-29] MEDS: glycopyrrolate 0.2 mg/mL SDV 2 mL IV (07:59)
[2023-11-29 08:27] VITALS: PULSE 71; O2SAT 98
--- NOTE | 2023-11-29 09:15 | PC.NURSE ---
note Patient was pronounced by myself and charge nurse at 9.10am. No respirations were noted and no heart beat detected by auscultation.
--- NOTE | 2023-11-29 12:22 | P.DES_ITS ---
Discharge Providers DDS Date of Admission: 11/19/23 20:40 Date Summary Completed: 11/29/23 Attending Provider at Admission: Ying Forman MD Attending Provider at Discharge: Ish Loya MD Primary Care Provider: DO TAO Sen Diagnoses Hospital Diagnoses (1) HTN (hypertension): Qualifiers: Hypertension type: primary hypertension Qualified Code(s): I10 - Essential (primary) hypertension (2) Congestive heart failure: Qualifiers: Heart failure chronicity: acute on chronic Heart failure type: diastolic Qualified Code(s): I50.33 - Acute on chronic diastolic (congestive) h eart failure (3) CAD (coronary artery disease): (4) Atrial fibrillation: (5) Supratherapeutic INR: (6) Abdominal pain: (7) BERNADETTE (acute kidney injury): (8) Acute on chronic renal insufficiency: (9) CKD (chronic kidney disease) stage 3, GFR 30-59 ml/min: Qualifiers: Chronic kidney disease stage 3 subtype: stage 3b (GFR 30-44) Qualified Code(s): N18.32 - Chronic kidney disease, stage 3b (10) Urinary tract infection: Qualifiers: Hematuria presence: without hematuria Urinary tract infection type: acute cystitis Qualified Code(s): N30.00 - Acute cystitis without hematuria (11) Staphylococcus aureus bacteremia: (12) BASIA (obstructive sleep apnea): (13) GI bleed: (14) Acute encephalopathy: (15) Fluid overload: (16) Acute respiratory failure: (17) Acute renal failure: (18) Metabolic acidosis: (19) Thrombocytopenia: (20) Uremia: (21) Hyperbilirubinemia: (22) Acute respiratory distress: (23) Need for comfort care: Reason for Visit Reason for Visit LOWER GI BLEED Summary Summary Summary: Essie Alejandre is a 73 year old female With past medical history of congestive heart failure, coronary disease with history of CABG PCI, PE, hypertension, sleep apnea, atrial fibrillation, CKD stage II, peripheral arterial disease, liver cirrhosis, recent staph coccus aureus bacteremia secondary to port infection who presented to the hospital today with complaint of black tarry stools that have been going on for last few days. Most of the history obtained from family who was present at bedside states that she has been having abdominal pain since her discharge 20 days ago. She has had mild sh ortness of breath. Patient is on soft bite sized food consistency and normally does vomit if she has trouble swallowing and yesterday had another episode of the same and ended up aspirating. Family states she has a very bad gag reflex and therefore she will tend to vomit during eating or taking her medications. She also has a baseline tremor in her hands and a head tremor which has been worsening in the last few weeks. Patient has been taking cefazolin 2 g every 8 hours to complete antibiotic which is going to end of December 04. Patient did have supratherapeutic INR last admission at which time she received FFP, vitamin K. Hemoglobin did trend down to 7.37.4. Eliquis was stopped. Patient unable to provide much history at this time except she says will be okay. She does have a DNR/DNI in place which patient and family both agreed to. Patient is somewhat confused and is very hard of hearing. She was discharged on Bumex 3 mg daily. In ER today blood pressure 127/83, respiratory 20, pulse 73, saturating 99% on room air. Patient has had another large BM which was black and tarry appearing. Patient's blood pressure low and she was ordered 250 cc normal saline bolus. Currently wanting first unit of packed RBC with second 1 pending. Hemoglobin on arrival 5.6. FOBT positive. INR 7.9 today. BUN 97, creatinine 4.9, lactic acid 2.5. She was given vitamin K, 80 of Protonix 1 L normal saline bolus in ER. UA shows 25-40 WBCs, 1+ bacteria. Patient was admitted to [facility] for acute GI bleed, monitor in the intensive care unit, requiring 3 units FFP, 2 units of blood, 1 unit platelet, Protonix, Carafate status post EGD with findings of duodenitis with contact bleeding, clips placed into duodenum, hypertensive gastropathy, small hiatal hernia, nonbleeding esophageal varices. Patient's bleeding has stabilized, hemoglobin has stabilized Patient's hospitalization was complicated with acute anemia, thrombocytopenia, elevated INR as above Patient's hospitalization was complicated with acute on chronic liver cirrhosis, with hyperbilirubinemia, thrombocytopenia, elevated INR, acute renal failure, hyperbilirubinemia Patient's hospitalization was complicated by acute hypoxic respiratory failure secondary to fluid overload, blood products, due to lackluster response to IV diuretics, will transition to dialysis, received inpatient dialysis, for fluid overload, did require intermittent BiPAP UTI requiring IV antibiotics Patient's hospitalization was complicated by acute renal failure, requiring dialysis Overall patient was monitored in the ICU, receiving interventions as above, after extensive goals of care discussion with patient's family, initially the plan was to give her a trial of dialysis therapy/medical therapy to see if her acute encephalopathy, uremic encephalopathy, fluid overload and acute renal failure improves. She was moved to the medical floors, however due to persistent fluid overload, respiratory failure, persistent encephalopathy, deconditioned state, bed bound, and worsening renal failure with lack of urine output, family decided to pursue comfort care. After discussing the risk and benefits of comfort care, they voiced understanding, all questions answered, shared decision making, agreed to proceed. Patient was made comfort care, time of 11/29/2023 9:10am Additional Data Confirmation of as documented by pronouncing clinician: no pulse, no respirations and no heart sounds Family: at bedside Additional persons at bedside: nursing staff Attending/PCP notified?: I am attending Was code activated?: No Autopsy requested?: No Advance directives?: Yes Hospice patient?: No Discharge Plan Discharge Patient Disposition: Condition: Prescriptions: No Action allopurinol 100 mg tablet 400 mg PO DAILY Qty: 120 11RF Nitrostat 0.4 mg tablet, sublingual 0.4 mg SUBLINGUAL Q5M PRN (Reason: Chest Pain) Qty: 30 2RF Rx Instructions: do not exceed 3 doses per episode atorvastatin 40 mg tablet 40 mg PO QAM Qty: 90 3RF sertraline 100 mg tablet 100 mg PO QAM Qty: 90 3RF alprazolam 0.5 mg tablet 0.5 mg PO DAILY PRN (Reason: Anxiety) Qty: 20 0RF albuterol sulfate 90 mcg/actuation HFA aerosol inhaler 2 puff INHALATION QID PRN (Reason: Shortness Of Breath) Qty: 8.5 2RF potassium chloride 20 mEq tablet,ER particles/crystals 20 meq PO BID Qty: 60 2RF Rx Instructions: take one tablet BY MOUTH TWICE DAILY while taking bumex. galantamine 4 mg tablet 4 mg PO BID Qty: 60 3RF Rx Instructions: administer with AM and PM meals metoprolol tartrate 25 mg tablet 25 mg PO BID Qty: 120 3RF acetaminophen [Tylenol Arthritis Pain] 650 mg tablet extended release 1,300 mg PO BID ascorbic acid (vitamin C) [Vitamin C] 500 mg Tablet See Rx Instructions .ROUTE .COMPLEX Rx Instructions: 500 mg orally ON TUESDAY, TUESDAY AND TUESDAY ferrous sulfate [Iron (ferrous sulfate)] 325 mg (65 mg iron) Tablet See Rx Instructions .ROUTE .COMPLEX Rx Instructions: 325 mg orally ON TUESDAY-TUESDAY AND TUESDAY bisacodyl [Dulcolax (bisacodyl)] 5 mg Tablet,Delayed Release (Dr/Ec) 5 mg PO DAILY PRN (Reason: Constipation) albuterol sulfate 90 mcg/actuation HFA aerosol inhaler 2 puff INHALATION QID PRN (Reason: Shortness Of Breath) omega-3 fatty acids 1,000 mg Capsule 1,000 mg PO DAILY clopidogrel 75 mg tablet 75 mg PO BEDTIME Hold Instructions: Resume on 09/29/23. Rx Instructions: TAKE ONE TABLET BY MOUTH at bedtime magnesium 200 mg tablet 200 mg PO DAILY Qty: 30 0RF cefazolin 2 gram recon soln 2 g IV Q8H 30 Days isosorbide mononitrate 30 mg Tablet Extended Release 24 Hr 30 mg PO DAILY Qty: 90 0RF famotidine 10 mg tablet 10 mg PO DAILY Qty: 90 0RF bumetanide 1 mg tablet 3 mg PO DAILY PRN (Reason: Edema) Qty: 90 0RF Rx Instructions: 2 mg orally PRN; Referrals: [facility] [place] [facility] [Outside] Derek Dowd DO [Primary Care Provider] - Discharge Diet: Cardiac Discharge Activity: Resume usual activity Patient Instructions: Dialysis Diet (DC), Hemodialysis (DC), GI Discharge Instructions, Opioid Safety DS Attestations Time Spent in /Discharge Care*: greater than 30 min Quality - AMI: AMI present?: No Quality - Stroke: CVA present?: No Symptom Onset Unknown: No Quality - VTE: VTE present?: No Deep Vein Thrombosis/Pulmonary Embolism Present on Admission: No Coding Level of Care Code 68796 Total time (in minutes) for Discharge: 45 Diagnoses Primary hypertension I10 Hypertension type: primary hypertension Acute on chronic diastolic congestive heart failure I50.33 Heart failure chronicity: acute on chronic Heart failure type: diastolic CAD (coronary artery disease) I25.10 Atrial fibrillation I48.91 Supratherapeutic INR R79.1 Abdominal pain R10.9 BERNADETTE (acute kidney injury) N17.9 Acute on chronic renal insufficiency N28.9; N18.9 Stage 3b chronic kidney disease N18.32 Chronic kidney disease stage 3 subtype: stage 3b (GFR 30-44) Urinary tract infection N30.00 Hematuria presence: without hematuria Urinary tract infection type: acute cystitis Staphylococcus aureus bacteremia R78.81; B95.61 BASIA (obstructive sleep apnea) G47.33 GI bleed K92.2 Acute encephalopathy G93.40 Fluid overload E87.70 Acute respiratory failure J96.00 Acute renal failure N17.9 Metabolic acidosis E87.20 Thrombocytopenia D69.6 Uremia N19 Hyperbilirubinemia E80.6 Acute respiratory distress R06.03 Need for comfort care
--- NOTE | 2023-11-29 12:22 | PC.NURSE ---
Post mortem care was provided to patient. Temporary dialysis catheter removed from right groin. Pressure dressing applied. Picc line removed from right upper arm. Estes catheter removed. Bed bath performed and gown was changed. Shaji ortega [place], [place] was notified of .
[2023-11-29 12:25] VITALS: BP 0/0; PULSE 0; RESP 0; TEMP -17.7; TEMP 0; O2SAT 0
== END 2023-11-29 13:41 | disposition expired | DRG 377 ==
LOC: ER 19:02 → ICU 21:28 → MEDSURG 11-23 17:34
PROVIDERS: Family Medicine; Internal Medicine Nephrology; Surgery; Admitting Provider Internal Medicine; Emergency Provider Emergency Medicine; PCP Family Medicine; Visit Provider Family Medicine
PROC: 0DJ08ZZ Inspection of Upper Intestinal Tract, Via Natural or Artificial Opening Endoscopic (ICD-10-PCS; CPT 43235; principal; 2023-11-20 08:00)
DX: K29.81 Duodenitis with bleeding (principal); I50.33 Acute on chronic diastolic (congestive) heart failure; J96.01 Acute respiratory failure with hypoxia; I13.0 Hypertensive heart and chronic kidney disease with heart failure and stage 1 through stage 4 chronic kidney disease, or unspecified chronic kidney disease; N17.9 Acute kidney failure, unspecified; N30.00 Acute cystitis without hematuria; R78.81 Bacteremia; E87.20 Acidosis, unspecified; G93.49 Other encephalopathy; D62 Acute posthemorrhagic anemia; K76.6 Portal hypertension; N18.32 Chronic kidney disease, stage 3b; I25.10 Atherosclerotic heart disease of native coronary artery without angina pectoris; I48.91 Unspecified atrial fibrillation; B95.61 Methicillin susceptible Staphylococcus aureus infection as the cause of diseases classified elsewhere; G47.33 Obstructive sleep apnea (adult) (pediatric); D69.6 Thrombocytopenia, unspecified; I73.9 Peripheral vascular disease, unspecified; K74.69 Other cirrhosis of liver; K21.9 Gastro-esophageal reflux disease without esophagitis; K31.89 Other diseases of stomach and duodenum; E87.5 Hyperkalemia; Z79.02 Long term (current) use of antithrombotics/antiplatelets; K44.9 Diaphragmatic hernia without obstruction or gangrene; I85.00 Esophageal varices without bleeding; K29.70 Gastritis, unspecified, without bleeding; J44.9 Chronic obstructive pulmonary disease, unspecified; E78.2 Mixed hyperlipidemia; Z95.5 Presence of coronary angioplasty implant and graft; Z51.5 Encounter for palliative care; Z66 Do not resuscitate; Z68.27 Body mass index [BMI] 27.0-27.9, adult; Z87.891 Personal history of nicotine dependence; I25.2 Old myocardial infarction; Z95.1 Presence of aortocoronary bypass graft; Z86.711 Personal history of pulmonary embolism; Z86.73 Personal history of transient ischemic attack (TIA), and cerebral infarction without residual deficits
CPT/HCPCS: 36415; 36416; 36430; 36592; 36600; 70450; 71045; 74018; 74177; 80048; 80051; 80053; 80503; 81001; 82009; 82010; 82140; 82274; 82306; 82310; 82330; 82435; 82436; 82533; 82550; 82570; 82803; 82805; 82962; 83605; 83735; 83880; 83970; 84100; 84132; 84133; 84145; 84295; 84300; 84439; 84443; 84450; 84481; 84484; 84550; 85025; 85610; 85651; 85730; 86038; 86140; 86160; 86705; 86706; 86803; 86850; 86900; 86920; 86927; 87040; 87086; 87340; 88305; 88342; 90935; 92610; 93005; 93308; 94664; 96365; 96366; 96367; 96372; 96374; 96375; 96376; 99285; C9113; J1170; J1200; J1644; J1815; J1940; J2270; J2354; J2543; J2704; J3370; J3430; J3490; J7050; J7799; P9016; P9017; P9035; Q3014; Q4081; Q9967